=== PATIENT | female | born 1950 | race Caucasian/White ===

== ENCOUNTER 2023-05-23 13:31 | Outpatient (OUT) | payer MEDICARE, SELFPAY ==
--- NOTE | 2023-05-23 15:12 | P.CN_ITS ---
Consult Note: HPI Data of Consult Patient: new to practice Consult date: 05/23/23 Requesting Physician: Serge Rodriguez MD Primary Care Provider: Non-Staff Physician, Consult Narrative Reason for consult: Right hip pain Narrative: 72yof who presents for evaluation. Increasing low back, right hip pain. Needs a right hip replacement, but too osteoporotic at this time. Engaged in provider directed home exercises >6 weeks, with no benefit. Utilizes tylenol mostly, which helps mildly. Denies adverse side effects. cc:: CC: Serge Rodriguez MD Review of Systems ROS Status of ROS 10 or more systems reviewed and unremarkable except as noted in history and below Exam Constitutional Common normals: no apparent distress, oriented x3 and healthy appearing Respiratory Common normals: normal respiratory effort Effort & inspection: able to speak in complete sentences Back & Pelvis Other: Tenderness to palpation in right hip. Pain elicited with flexion, extension, external rotation of right hip. Facet loading maneuvers positive bilaterally. Pain with flexion, extension, lateral rotation of lumbar spine. Extremity Common normals: normal to inspection Neuro Common normals: oriented x3, CN's II-XII intact bilaterally and no focal motor deficits Psych Common normals: mental status grossly normal and cooperative Assessment and Plan Assessment and Plan (1) Lumbago: (2) Osteoarthritis of right hip: Plan 72yof who presents for evaluation. Failed conservative measures >6 weeks, as not ed. Given imaging and symptoms, prudent to attempt right hip injection. She is in agreement. Will have her undergo lumbar XR for evaluation. Medications reviewed. Will prescribe butrans path 5mcg/hr. She expressed understanding. Follow up after procedure.
== END 2023-05-23 13:32 ==
LOC: PM 13:31
PROVIDERS: Visit Provider Anesthesiology
DX: M54.50 Low back pain, unspecified (principal); M16.11 Unilateral primary osteoarthritis, right hip
CPT/HCPCS: G0463

== ENCOUNTER 2023-06-20 10:34 | Day surgery (SDC) | payer MEDICARE, SELFPAY ==
[2023-06-20 11:00] VITALS: BP 130/78; PULSE 83; RESP 14; TEMP 36.8; O2SAT 98
[2023-06-20] MEDS: LIDOCAINE HCL 2% PF 100 MG/5 ML VIAL INJ (11:57)
[2023-06-20] MEDS: TRIAMCINOLONE ACETONIDE 40 MG/ML VIAL IM (11:57)
[2023-06-20] MEDS: BUPIVACAINE HCL 0.25% PF 25 MG/10 ML VIAL 4 ML INJ (11:57)
[2023-06-20] MEDS: IOHEXOL 240 MG/ML - 10 ML VIAL INJ (11:57)
--- NOTE | 2023-06-20 11:57 | W.PM.PROCNOT ---
Date of procedure: 06/20/23 Pre-op diagnosis: Right hip osteoarthritis Post-op diagnosis: same as pre-op Procedure: Procedure: Right hip intraarticular injection Medications: Bupivacaine 0.25% 3cc, kenalog 40mg I explained the details of the procedure to the patient including the risks, benefits and alternatives. We had an informed discussion and the patient verbalized understanding and signed the consent form. All questions were answered appropriately.? A time out was performed.? After obtaining a comfortable supine position, the skin overlying the hip, subtrochanteric region, and joint space were prepped with alcohol. A sterile syringe containing the above medication was attached to a 25 guage, 3.5 inch spinal needle under strict aseptic technique. X ray was used to identify the joint space and the femoral neck on the right side.? The needle was than advanced through the subcutaneous tissue after local injection of 1% lidocaine.? The contents of the syringe were gently injected without any resistance into the joint space after contrast (isovue) outlined the appropriate area. The needle was removed and pressure was applied to the injection site to decrease the incidence of ecchymosis and hematoma formation.? A sterile bandage was applied. Post procedural instructions were given to the patient. Anesthesia: Local Surgeon: Serge Rodriguez Pathology: none sent Condition: stable Disposition: no change
[2023-06-20 12:00] VITALS: BP 153/77; BP 158/74; PULSE 100; PULSE 92; RESP 16; RESP 18; O2SAT 93; O2SAT 94
== END 2023-06-20 12:04 | disposition home or self-care (01) ==
PROVIDERS: Visit Provider Anesthesiology
DX: M16.11 Unilateral primary osteoarthritis, right hip (principal)
CPT/HCPCS: 20610; 77002; Q9966

== ENCOUNTER 2023-07-06 14:49 | Outpatient (OUT) | payer MEDICARE, SELFPAY ==
--- NOTE | 2023-07-06 15:21 | PM.CN ---
Consult Note: HPI Data of Consult Patient: new to practice Consult date: 05/23/23 Requesting Physician: Roxana Jj NP Primary Care Provider: Non-Staff Physician, MD Consult Narrative Reason for consult: Right hip pain Narrative: 72yof who presents for evaluation. Increasing low back, right hip pain. Needs a right hip replacement, but too osteoporotic at this time. Engaged in provider directed home exercises >6 weeks, with no benefit. Utilzes butrans 5mcg with moderate relief of pain and no side effects. Patient rating pain 5/10 today. Reporting 80% improvement as a result of right hip injection. cc:: CC: Roxana Jj NP Review of Systems ROS Status of ROS 10 or more systems reviewed and unremarkable except as noted in history and below Musculoskeletal Reports: joint pain PFSH PFSH Medical History Arthritis of right hip ?M16.11 - Unilateral primary osteoarthritis, right hip (ICD-10) Meds Home Medications and Allergies Home Medications Medication Instructions Recorded Confirmed Type acetaminophen 325 mg capsule 1,300 mg PO BID PRN pain 05/24/23 06/20/23 History (Tylenol) albuterol sulfate 90 mcg/actuation 1 inh inhalation Q6H 05/24/23 06/20/23 History aerosol inhaler alendronate 70 mg tablet 70 mg PO QWEEK 05/24/23 06/20/23 History atorvastatin 20 mg tablet 20 mg PO DAILY 05/24/23 06/20/23 History buprenorphine 5 mcg/hour weekly 1 patch transdermal Q7D 05/24/23 06/20/23 History transdermal patch (Butrans) buspirone 5 mg tablet 5 mg PO BID 05/24/23 06/20/23 History cholecalciferol (vitamin D3) 25 25 mcg PO DAILY 05/24/23 06/20/23 History mcg (1,000 unit) capsule furosemide 20 mg tablet 20 mg PO BID 05/24/23 06/20/23 History lisinopril 2.5 mg tablet 2.5 mg PO DAILY 05/24/23 06/20/23 History metoprolol tartrate 25 mg tablet 25 mg PO BID 05/24/23 06/20/23 History multivitamin 1 tab PO DAILY 05/24/23 06/20/23 History buprenorphine 5 mcg/hour weekly 1 patch transdermal Q7D #4 ea 06/22/23 Rx transdermal patch (Butrans) buprenorphine 5 mcg/hour weekly 1 patch transdermal Q7D #4 ea 06/23/23 Rx transdermal patch (Butrans) Allergies Allergy/AdvReac Type Severity Reaction Status Date / Time No Known Drug Allergies Allergy Verified 05/24/23 07:59 Exam Constitutional Common normals: no apparent distress, oriented x3 and healthy appearing Respiratory Common normals: normal respiratory effort Effort & inspection: able to speak in complete sentences Back & Pelvis Other: Tenderness to palpation in right hip. Pain elicited with flexion, extension, external rotation of right hip. Facet loading maneuvers positive bilaterally. Pain with flexion, extension, lateral rotation of lumbar spine. Extremity Common normals: normal to inspection Neuro Common normals: oriented x3, CN's II-XII intact bilaterally and no focal motor deficits Psych Common normals: mental status grossly normal and cooperative Assessment and Plan Assessment and Plan (1) Lumbago: (2) Osteoarthritis of right hip: Plan -continue current medications -f/u 10 weeks
== END 2023-07-06 14:50 | disposition home or self-care (01) ==
LOC: PM 14:49
PROVIDERS: Visit Provider Nurse Practitioner
DX: M54.50 Low back pain, unspecified (principal); M16.11 Unilateral primary osteoarthritis, right hip
CPT/HCPCS: G0463

== ENCOUNTER 2023-09-15 13:43 | Outpatient (OUT) | payer MEDICARE, SELFPAY ==
--- NOTE | 2023-09-15 14:36 | P.CN_ITS ---
Consult Note: HPI Data of Consult Patient: new to practice Consult date: 05/23/23 Requesting Physician: Roxana Jj NP Primary Care Provider: Non-Staff Physician, MD Consult Narrative Reason for consult: /fu Narrative: 72yof who presents for evaluation. Increasing low back, right hip pain and right knee pain. Needs a right hip replacement, but too osteoporotic at this time. Engaged in provider directed home exercises >6 weeks, with no benefit. Utilzes butrans 5mcg with moderate relief of pain and no side effects. Patient rating pain 8/10 today. cc:: CC: Roxana Jj NP Review of Systems ROS Status of ROS 10 or more systems reviewed and unremark able except as noted in history and below Musculoskeletal Reports: extremity pain and joint pain PFSH PFSH Medical History Arthritis of right hip ?M16.11 - Unilateral primary osteoarthritis, right hip (ICD-10) Meds Home Medications and Allergies Home Medications Medication Instructions Recorded Confirmed Type acetaminophen 325 mg capsule 1,300 mg PO BID PRN pain 05/24/23 06/20/23 History (Tylenol) albuterol sulfate 90 mcg/actuation 1 inh inhalation Q6H 05/24/23 06/20/23 History aerosol inhaler alendronate 70 mg tablet 70 mg PO QWEEK 05/24/23 06/20/23 History atorvastatin 20 mg tablet 20 mg PO DAILY 05/24/23 06/20/23 History buprenorphine 5 mcg/hour weekly 1 patch transdermal Q7D 05/24/23 06/20/23 History transdermal patch (Butrans) buspirone 5 mg tablet 5 mg PO BID 05/24/23 06/20/23 History cholecalciferol (vitamin D3) 25 25 mcg PO DAILY 05/24/23 06/20/23 History mcg (1,000 unit) capsule furosemide 20 mg tablet 20 mg PO BID 05/24/23 06/20/23 History lisinopril 2.5 mg tablet 2.5 mg PO DAILY 05/24/23 06/20/23 History metoprolol tartrate 25 mg tablet 25 mg PO BID 05/24/23 06/20/23 History multivitamin 1 tab PO DAILY 05/24/23 06/20/23 History buprenorphine 5 mcg/hour weekly 1 patch transdermal Q7D #4 ea 06/22/23 Rx transdermal patch (Butrans) buprenorphine 5 mcg/hour weekly 1 patch transdermal Q7D #4 ea 06/23/23 Rx transdermal patch (Butrans) buprenorphine 5 mcg/hour weekly 1 patch transdermal Q7D #4 ea 08/23/23 Rx transdermal patch (Butrans) Allergies Allergy/AdvReac Type Severity Reaction Status Date / Time No Known Drug Allergies Allergy Verified 05/24/23 07:59 Exam Constitutional Common normals: no apparent distress, oriented x3 and healthy appearing Respiratory Common normals: normal respiratory effort Effort & inspection: able to speak in complete sentences Back & Pelvis Other: Tenderness to palpation in right hip. Pain elicited with flexion, extension, external rotation of right hip. Facet loading maneuvers positive bilaterally. Pain with flexion, extension, lateral rotation of lumbar spine. Extremity Right lower extremity: hip joint and knee joint Other: enlarged diameter of right knee, pain with weight bearing and flexion and extension no warmth redness or swelling Neuro Common normals: oriented x3, CN's II-XII intact bilaterally and no focal motor deficits Psych Common normals: mental status grossly normal and cooperative Assessment and Plan Assessment and Plan (1) Osteoarthritis of right hip: (2) Lumbago: (3) Osteoarthritis of right knee: (4) Osteoporosis: (5) Chronic prescription opiate use: Plan right hip injection under fluoroscopy with Dr Rodriguez right knee durolane injection with Dr Rodriguez for chronic right knee pain and OA unresponsive to corticosteroid injections continue butrans 5mcg/hr patch weekly continue HEP as tolerated continue prolia and f/u with orthopedics
== END 2023-09-15 13:44 | disposition home or self-care (01) ==
LOC: PM 13:44
PROVIDERS: Visit Provider Nurse Practitioner
DX: M16.11 Unilateral primary osteoarthritis, right hip (principal); M54.50 Low back pain, unspecified; M17.11 Unilateral primary osteoarthritis, right knee; M81.0 Age-related osteoporosis without current pathological fracture; Z79.891 Long term (current) use of opiate analgesic
CPT/HCPCS: G0463

== ENCOUNTER 2023-10-17 09:26 | Day surgery (SDC) | payer MEDICARE, SELFPAY ==
--- OUTSIDE RECORDS SUMMARY | 2023-10-17 09:30 | XMS_ITS | CCD ---
Author Name Unknown Address [address] [place] [address] Organization [facility] Care Team Providers Care Associate Theatre Professor Name Role Phone MISC, DOCTOR Primary Care Unavailable GUME RODRIGUEZ Admitting GUME Padron Attending UnavailROGERS Cao Consulting Unavailable GUME RODRIGUEZ Consulting UnavailEstelita Breen Unavailable IFTIKHAR Trevino Primary Care Provide r DO Wilman Ramirez Emergency Provider DO Josué Alvarez Admit Provider RONEY Ding Other Provider Unavailable DO Jerica Carrasco Other Provider [phone] MD Wilbert East Other Provider MD Willie Milner Other Provider MD Jaquelin Connell Other Provider MD Zia Lloyd Other Provider IFTIKHAR Forrester Other Provider MD aPulina Garsia Other Provider MD Payal Horta Other Provider MD Kale Robles Other Provider MD Parvin Batres Attending Provider [phone] MD Mark Avila Attending Provider Linda Fontanez Unavailable IFTIKHAR Trevino Primary Care Provide r IFTIKHAR Sheridan Emergency Provider IFTIKHAR Trevino Attending Provider DO Jerica Carrasco Referring Provider Delfina Trevino Unavailable Unavailable Unavailable Delfina Trevino Primary Care Unavailab Layo Madrigal Admitting Unavailable Layo Sheridan Attending Unavailable Delfina Trevino Primary Care Unavailab Josué Wasserman Admitting Unavailable Jennifer Ding Consulting Unavailable Parvin Batres Attending Unavailable Jerica Carrasco Consulting Unavailable Wilbert East Consulting Unavailable Willie Milner Consulting Unavail able Jaquelin Connell Consulting Unavailable Zia Lloyd Consulting Unavailab Iwona Wayne Consulting Unavailable Paulina Garsia Consulting Unavailable Payal Horta Consulting Unavailab Kale Ramos Consulting Unavailable Delfina Trevino Admitting Unavailab le Delfina Trevino Attending Unavailab le Delfina Trevino Primary Care Unavailab Mark [place] Admitting Unavailable Mark Avila Attending Unavailable Delfina Trevino Primary Care Unavailab Mark [place] Admitting Unavailable Mark Avila Attending Unavailable Delfina Trevino Primary Care Unavailab le Delfina Trevino Admitting Unavailab le Delfina Trevino Attending Unavailab Jerica Frank Referring Unavailable Delfina Trevino Primary Care Unavailab le Delfina Trevino Admitting Unavailab le Delfina Trevino Attending Unavailab le Delfina Trevino Primary Care Unavailab eldon Kaiser, Joy Unavailable Jennifer PATEL, Serge Duran Attending Unavailable Jennifer PATEL, Serge Duran Attending Unavailable Ms. Delfina Trevino Primary Care Dr. Willie Story Attending Leyda Trevino, Dominique Delfina Maliky Primary Care Milly Connell, Dr. Hammer Referring [facility] genaro Connell, Dr. Hammer Attending [facility] ble Allergies Allergy Classification Reported Allergen(s) Allergy Type Date of Onset Reaction(s) Facility (2 sources) Acetaminophen / oxyCODONE Drug Allergy Unknown [place] Other (2 sources) Clindamycin Drug Allergy Unknown [place] Other (2 sources) PARoxetine Drug Allergy Unknown [place] Other (2 sources) Pseudoephedrine Drug Allergy Unknown [place] Other (2 sources) Sertraline Drug Allergy Unknown [place] Other Medications Current Medications Medication Drug Class(es) Dates Sig (Normalized) Sig (Original) acetaminophen 325 mg oral tablet (1 source) take 1 tablet by mouth every four hours albuterol 0.83 mg/ml inhalation solution (15 sources) beta2-Adrenergic Agonist Start: 01-14-2020 Albuterol Sulfate Active 1 AMPUL INHALATION Q4H January 14, 2020 12:00am Start: 01-14-2020 take 1 puff(s) by in halation every four hours Albuterol Sulfate Active 2 PUFF INHALATION Q4H January 14, 2020 12:00am take 1 puff(s) by in halation every four hours as needed Albuterol Sulfate HFA 108 MCG/ACT AERS INHALE 1 PUFF EVERY 4 HOURS NEEDED. Quantity: 0 Refills: 0 Ordered: 04-Mar-2023 DO Active amoxicillin 875 mg / clavulanate 125 mg oral tablet (6 sources) Penicillin-class Antibacterial Start: 04-18-2022 take 1 tablet by mouth twice daily Amoxicillin-Pot Clavulanate Active 1 TAB PO Twice daily 06 16April 18, 2022 12:00am Start: 04-18-2022 take 1 tablet by mariano th twice daily Amoxicillin-Pot Clavulanate Active 1 TAB PO Twice daily 06 16April 18, 2022 12:00am aspirin 81 mg delayed release oral tablet (7 sources) Platelet Aggregation Inhibitor, Nonsteroidal Anti-inflammatory Drug Start: 06-28-2020 take 81 mg by mouth once daily Aspirin Active 81 MG PO Daily June 28, 2020 12:00am Baby Aspirin Act amberly atorvastatin 20 mg oral tablet (10 sources) HMG-CoA Reductase Inhibitor Start: 06-27-2020 take 20 mg by mouth once daily Atorvastatin Active 20 MG PO Daily June 27, 2020 12:00am take 1 tablet by mouth every twe nty-four hours Atorvastatin Afshin cium Active cholecalciferol 0.025 mg oral tablet (6 sources) Vitamin D Start: 04-16-2022 take 1 tablet by mouth once daily Cholecalciferol (Vitamin D3) (Vitamin D3) 25 mcg (1,000 unit) tablet Active 25 MCG PO Daily April 16, 2022 12:00am furosemide 40 mg oral tablet (9 sources) Loop Diuretic Start: 04-18-2022 take 20 mg by mouth once daily Furosemide Active 20 MG PO Daily at 0800 April 18, 2022 12:00am Start: 04-18-2022 take 20 mg by mouth once daily Furosemide Active 20 MG PO Daily at 0800 April 18, 2022 12:00am take 1 tablet by mariano th every twenty-four hours Fhgduwyb-Azfzg-Zoz 2-C-D3-Jane (Djdsrpff-Xmxzzo-Zzg With Vit D) 750-30-1,000-1 vt-bo-owdh-mg Tablet (6 sources) Start: 04-16-2022 take 1 tablet by mouth once daily Jvonisyp-Ptfef-Wvd 2-C-D3-Jane (Hpezvxry-Vbikns-Mye With Vit D) 750-30-1,000-1 zl-sa-roac-mg Tablet Active 1 TAB PO Daily April 16, 2022 12:00am Glucosamine (1 source) Glucosamine Acti ve ibuprofen 200 mg oral tablet (6 sources) Nonsteroidal Anti-inflammator y Drug Start: 04-16-2022 take 800 mg by mouth twice daily Ibuprofen Active 800 MG PO Twice daily April 16, 2022 12:00am lisinopril 2.5 mg oral tablet (16 sources) Angiotensin Converting Enzyme Inhibitor Start: 04-18-2022 take 2.5 mg by mouth once daily Lisinopril Active 2.5 MG PO Daily April 18, 2022 12:00am Start: 04-18-2022 take 2.5 mg by mouth once amy y Lisinopril Active 2.5 MG PO Daily 30 April 18, 2022 12:00am Start: 06-19-2019 End: 04-18-2022 take 10 mg by mouth once daily Lisinopril Discontinued 10 MG PO Daily June 19, 2019 12:00am April 18, 2022 9:47am take 1 tablet by mariano every twenty-four hours Lisinopril Activ e methylPREDNISolone 4 mg oral tablet (1 source) Corticosteroid Start: 01-29-2022 Medrol 4 MG as directed Orally as directed for 6 days January, Active metoprolol tartrate 25 mg oral tablet (9 sources) beta-Adrenergic Herber Start: 04-18-2022 take 25 mg by mouth twice daily Metoprolol Tartrate Active 25 MG PO Twice daily 60 April 18, 2022 12:00am Start: 04-18-2022 take 25 mg by mouth twice amy y Metoprolol Tartrate Active 25 MG PO Twice daily 60 April 18, 2022 12:00am take 1 tablet by mariano once daily Metoprolol Succinate ER 25 MG Oral Tablet Extended Release 24 Hour TAKE 1 TABLET BY MOUTH EVERY DAY Quantity: 90 Refills: 3 Ordered: 04-Mar-2023 DO Active take 1 capsule by mo [facility] once daily Metoprolol Succinate 25 MG 1 capsule Orally Once a day Active 60 actuat olodaterol 0.0025 mg/actuat / tiotropium 0.0025 mg/actuat inhalation spray (1 source) Anticholinergic, beta2-Adrenergic Agonist Start: 03-22-2023 predniSONE 20 mg oral tablet (15 sources) Start: 12-16-2022 take 40 mg by mouth once daily at mealtime Prednisone Active 40 MG PO Daily December 16, 2022 12:00am administer with food or milk Start: 01-14-2020 End: 07-21-2020 take 40 mg by mouth once daily Prednisone Discontinued 40 MG PO Daily 02 12June 28, 2020 12:00am July 21, 2020 12:34pm traMADol hydrochloride 50 mg oral tablet (3 sources) Opioid Agonist Start: 12-16-2022 take 50 mg by mouth every eight hours Tramadol Active 50 MG PO Q8H 10 3 Dalia 6th, 2023 12:00am 24 hr venlafaxine 75 mg extended release oral capsule (19 sources) Serotonin and Norepinephrine Reuptake Inhibitor Start: 04-17-2022 take 75 mg by mouth once daily Venlafaxine Active 75 MG PO Daily April 17, 2022 12:00am Start: 04-16-2022 End: 04-17-2022 take 1 tablet by mouth once daily Venlafaxine (Effexor) 75 mg Tablet Discontinued 75 MG PO Daily April 16, 2022 12:00am April 17, 2022 9:09am Start: 06-19-2019 End: 01-14-2020 take 150 mg by mouth once daily Venlafaxine Discontinu ed 150 MG PO Daily June 19, 2019 12:00am January 14, 2020 7:56pm Effexor Active Vitamin D (1 source) Vitamin D Active Completed/Discontinued Medications Medication Drug Class(es) Dates Sig (Normalized) Sig (Original) acetaminophen 325 mg / HYDROcodone bitartrate 5 mg oral tablet (6 sources) Opioid Agonist Start: 07-21-2020 End: 10-09-2020 take 1 tablet by mouth every six hours Hydrocodone-Acetam inophen (Arvin) 5-325 mg tablet Discontinued 1 TAB PO Q6H 10 2 July 21, 2020 October 09, 2020 8:45pm azithromycin 250 mg oral tablet (6 sources) Macrolide Antimicrobial Start: 06-28-2020 End: 07-21-2020 take 500 mg by mouth once daily Azithromycin Discontinued 500 MG PO Daily 8 June 28, 2020 12:00am July 21, 2020 12:34pm diclofenac sodium 75 mg delayed release oral tablet (14 sources) Nonsteroidal Anti-inflammatory Drug Start: 04-16-2022 End: 04-16-2022 take 75 mg by mouth once daily Diclofenac Sodium Discontinued 75 MG PO Daily April 16, 2022 12:00am April 16, 2022 10:46pm Start: 06-19-2019 End: 01-14-2020 take 75 mg by mouth once daily Diclofenac Sodium Disco ntinued 75 MG PO Daily June 19, 2019 12:00am January 14, 2020 7:56pm doxycycline hyclate 100 mg oral tablet (6 sources) Tetracycline-class Drug Start: 01-14-2020 End: 06-27-2020 take 100 mg by mouth twice daily Doxycycline Hyclate Discontinued 100 MG PO Twice daily 14 January 14, 2020 12:00am June 27, 2020 12:29pm famotidine 20 mg oral tablet (1 source) Histamine-2 Receptor Antagonist take 1 tablet by mouth at bedtime Famotidine 20 MG Oral Tablet TAKE 1 TABLET AT BEDTIME. Quantity: 0 Refills: 0 Ordered: 04-Mar-2023 DO Active hydrocortisone 25 mg/ml topical cream (6 sources) Corticosteroid Start: 06-19-2019 End: 01-14-2020 Hydrocortisone Discontinued 1 APPLIC TOPICAL 2-3 TIMES PER DAY June 19, 2019 12:00am January 14, 2020 7:55pm Problems Active Problems Problem Classification Problem Date Documented Date Episodic/Chronic Acute cerebrovascular disease (6 sources) Cerebrovascular accident; Translations: [Cerebral infarction, unspecified] 06-27-2020 Chronic Acute myocardial infarction (10 sources) Myocardial infarction; Translations: [Myocardial infarction type 2] Onset: 04-16-2022 04-17-2022 Chronic Allergic reactions (6 sources) Inflammatory dermatosis; Translations: [Dermatitis, unspecified] 06-19-2019 Episodic Chronic kidney disease (3 sources) Chronic kidney disease stage 4; Translations: [Chronic kidney disease, stage 4 (severe)] Chronic Chronic obstructive pulmonary disease and bronchiectasis (20 sources) Chronic obstructive lung disease; Translations: [Chronic obstructive pulmonary disease, unspecified] Onset: 04-16-2022 04-17-2022 Chronic Congestive heart failure; nonhypertensive (16 sources) Diastolic heart failure; Translations: [Diastolic heart failure, unspecified] Onset: 04-16-2022 04-17-2022 Chronic Disorders of lipid metabolism (12 sources) Hyperlipidemia; Translations: [Hyperlipidemia, unspecified] Onset: 04-16-2022 04-17-2022 Chronic Essential hypertension (17 sources) Hypertensive disorder; Translations: [Unspecified essential hypertension] Onset: 04-16-2022 04-17-2022 Chronic Fracture of lower limb (6 sources) Fracture of foot ; Translations: [Unspecified fracture of unspecified foot, initial encounter for closed fracture] 07-21-2020 Episodic Gout and other crystal arthropathies (3 sources) 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; Translations: [Other secondary chronic gout, unspecified site, without tophus (tophi)] Chronic Malaise and fatigue (6 sources) Right hemiparesis; Translations: [Weakness] 06-27-2020 Episodic Osteoporosis (1 source) Age-related osteoporosis without current pathological fracture; Translations: [Age-related osteoporosis without current pathological fracture] Onset: 03-07-2023 Chronic Other and unspecified benign neoplasm (6 sources) Neoplasm of meninges; Translations: [Benign neoplasm of meninges, unspecified] 06-27-2020 Chronic Other bone disease and musculoskeletal deformities (1 source) Other specified disorders of bone, unspecified site; Translations: [Other specified disorders of bone, unspecified site] Onset: 02-28-2023 Episodic Other circulatory disease (6 sources) Elevated blood pressure; Translations: [Elevated blood-pressure reading, without diagnosis of hypertension] 06-19-2019 Episodic Other circulatory disease (6 sources) History of cerebrovascular accident; Translations: [Personal history of transient ischemic attack (TIA), and cerebral infarction without residual deficits] 04-17-2022 Episodic Other connective tissue disease (6 sources) Swelling of lower limb; Translations: [Other specified soft tissue disorders] 04-16-2022 Episodic Other hematologic conditions (6 sources) Raised cardiac enzyme or marker; Translations: [Other specified abnormalities of plasma proteins] 04-16-2022 Episodic Other lower respiratory disease (1 source) Dyspnea; Translations: [Other respiratory abnormalities] Episodic Other nervous system disorders (1 source) Other chronic pain Onset: 01-29-2022 Resolved: 01-29-2022 Chronic Other nervous system disorders (6 sources) Slurred speech; Translations: [Slurred speech] 10-09-2020 Episodic Other nervous system disorders (6 sources) Ataxia; Translations: [Ataxia, unspecified] 06-27-2020 Episodic Other non-traumatic joint disorders (3 sources) Hip pain; Translations: [Pain in right hip] 12-16-2022 Episodic Other nutritional; endocrine; and metabolic disorders (1 source) Body mass index less than 20; Translations: [Body Mass Index less than 19, adult] Episodic Pneumonia (except that caused by tuberculosis or sexually transmitted disease) (6 sources) Pneumonia; Translations: [Pneumonia, unspecified organism] 06-27-2020 Episodic Residual codes; unclassified (6 sources) Tobacco user; Translations: [Tobacco use] 04-17-2022 Episodic Residual codes; unclassified (6 sources) Peripheral edema; Translations: [Edema, unspecified] 04-16-2022 Episodic Residual codes; unclassified (3 sources) Edema, unspecified; Translations: [Edema] 04-18-2022 Episodic Residual codes; unclassified (5 sources) Tobacco use; Translations: [Tobacco use disorder] Onset: 04-16-2022 04-18-2022 Episodic Residual codes; unclassified (1 source) Tobacco dependence syndrome; Translations: [Tobacco use] Episodic Rheumatoid arthritis and related disease (3 sources) Seropositive rheumatoid arthritis; Translations: [Rheumatoid arthritis with rheumatoid factor, unspecified] Chronic Substance-related disorders (2 sources) Nicotine dependence, cigarettes, uncomplicated; Translations: [Smoker] Onset: 01-17-2019 Chronic Comment on above: 1 PPD; Unclassified (1 source) Pain in right hip; Translations: [Pain in right hip] Onset: 12-16-2022 Unclassified (1 source) Pain in right ankle and joints of right foot; Translations: [Pain in right ankle and joints of right foot] Onset: 05-12-2022 Urinary tract infections (6 sources) Urinary tract infectious disease; Translations: [Urinary tract infection, site not specified] 01-14-2020 Episodic Past or Other Problems Problem Classification Problem Date Documented Date Episodic/Chronic Deficiency and other anemia (1 source) Anemia, unspecified; Translations: [Anemia, unspecified] Onset: 06-16-2022 Episodic Fluid and electrolyte disorders (8 sources) Hyponatremia; Translations: [Hypo-osmolality and hyponatremia] Onset: 04-16-2022 04-18-2022 Episodic Other circulatory disease (4 sources) Elevated blood-pressure reading, without diagnosis of hypertension; Translations: [Elevated blood pressure reading without diagnosis of hypertension] Onset: 04-16-2022 04-18-2022 Episodic Other circulatory disease (4 sources) Personal history of transient ischemic attack (TIA), and cerebral infarction without residual deficits; Translations: [Personal history of transient ischemic attack (TIA), and cerebral infarction without residual deficits] Onset: 04-16-2022 04-18-2022 Episodic Other connective tissue disease (1 source) Synovial cyst of popliteal space [Ness], left knee Onset: 01-29-2022 Resolved: 01-29-2022 Episodic Other connective tissue disease (4 sources) Other specified soft tissue disorders; Translations: [Swelling of limb] Onset: 04-16-2022 04-18-2022 Episodic Other hematologic conditions (4 sources) Other specified abnormalities of plasma proteins; Translations: [Other abnormal blood chemistry] Onset: 04-16-2022 04-18-2022 Episodic Other non-traumatic joint disorders (3 sources) Pain in left wrist; Translations: [PAIN IN LEFT WRIST] Onset: 01-15-2019 Episodic Other non-traumatic joint disorders (1 source) Effusion, left knee Onset: 01-29-2022 Resolved: 01-29-2022 Episodic Other non-traumatic joint disorders (1 source) Pain in left knee Onset: 01-29-2022 Resolved: 01-29-2022 Episodic Sprains and strains (1 source) Strain of unspecified muscle, fascia and tendon at wrist and hand level, left hand, initial encounter; Translations: [STRAIN UNS DISTANCE EDUCATION DIRECTOR WRST HND LT HND INIT] Onset: 01-17-2019 Episodic Results Test Name Value Interpretation Reference Range Facility Office Visit (Cardiology)on 03-04-2023 Follow-up visit Diagnoses/Problems Assessed Dyspnea (786.09) (R06.00) Chronic diastolic heart failure, NYHA class 2 (428.32) (I50.32) Pre-operative cardiovascular examination (V72.81) (Z01.810) Current smoker (305.1) (F17.200) 1 PPD Diastolic heart failure (428.30) (I50.30) Hyperlipidemia (272.4) (E78.5) Hypertension (401.9) (I10) Preop cardiovascular exam (V72.81) (Z01.810) BMI less than 19,adult (V85.0) (Z68.1) Orders BMI less than 19,adult Healthy Weight Tips; Status:Complete - Retrospective Authorization; Done: 04Mar2023 Chronic diastolic heart failure, NYHA class 2, Diastolic heart failure IO EKG Electrocardiogram- 12 Lead; Status:Complete; Done: 04Mar2023 SocHx: Current smoker You need to stop smoking. Though it is not easy, more than half of all adult smokers have quit. We encourage you to write down all the reasons you should quit smoking and set a quit date for yourself. Ask us how we can help. You may also call 0-820-MPLONOW for free resources and assistance.; Status:Complete - Retrospective Authorization; Done: 04Mar2023 Tobacco Use Screening; Status:Complete; Done: [id number] Patient Instructions Please bring all medicines, vitamins, and herbal supplements with you when you come to the office. Prescriptions will not be filled unless you are compliant with your follow up appointments or have a follow up appointment scheduled as per instruction of your physician. Refills should be requested at the time of your visit. Note to Dr. Llamas's- can proceed with surgery from a cardiac standpoint Follow-up as needed only The provider reviewed the following test(s) and result(s) with the patient: ECG and pharmacologic stress test Chief Complaint CORIE COURTNEY is being seen for a consultation for POC. History of Present Illness The patient is here for cardiovascular evaluation for preoperative risk assessment. She is a 72-year-old whom I seen last year for evaluation for what appeared to be diastolic heart failure. Her medication was adjusted. She was advised to have a stress test but never showed up for that or follow-up. She was recently seen by orthopedic surgery because of hip pain and she is scheduled to undergo hip surgery. She was scheduled by her family physician for a stress test which turned to be negative. Her previous echocardiogram showed hyperdynamic LV systolic function with minimal intracavitary obstruction. The patient admits to very limited exercise tolerance due to hip pain. She does report some mild shortness of breath due to her tobacco use. Assessment 1. Dyspnea appears to be multifactorial related to chronic obstructive lung disease, tobacco use and component of diastolic heart failure 2. Chronic diastolic heart failure with previously documented hyperdynamic LV systolic function markedly improved with the adjustment of medication and uptitrating beta-herber. The patient is compensated now 3. Hypertension controlled 4. Hyperlipidemia atorvastatin 5. Tobacco use and COPD 7. Preoperative risk assessment for hip surgery based on recent testing including negative stress test and normal LV systolic function I believe her operative risk is acceptable cardiac esparza and she can proceed with surgery. Operative risk cardiac-esparza reviewed with patient and her son they both understood and agreed Plan 1. As indicated above based on ACC/AHA guidelines and based on recent diagnostic testing the patient operative risk is acceptable and she can proceed with her surgery 2. Operative risk reviewed with patient and her son they both understood and agreed 3. The patient was advised not to smoke 4. Patient will follow-up on as-needed basis on her request Active Problems Problems Chronic diastolic heart failure, NYHA class 2 (428.32) (I50.32) Current smoker (305.1) (F17.200) 1 PPD Diastolic heart failure (428.30) (I50.30) Hyperlipidemia (272.4) (E78.5) Hypertension (401.9) (I10) Surgical History Problems History of section History of Excision of basal cell carcinoma History of Foot surgery History of Tonsillectomy History of Wrist surgery Current Meds Medication NameInstruction Albuterol Sulfate HFA 108 MCG/ACT AERSINHALE 1 PUFF EVERY 4 HOURS NEEDED. Atorvastatin Calcium 40 MG Oral TabletTAKE 1 TABLET AT BEDTIME. Diclofenac Sodium 75 MG Oral Tablet Delayed ReleaseTAKE 1 TABLET Every twelve hours as needed Famotidine 20 MG Oral TabletTAKE 1 TABLET AT BEDTIME. Furosemide 40 MG Oral TabletTAKE 1 TABLET DAILY. Lisinopril 2.5 MG Oral TabletTAKE 1 TABLET DAILY. Metoprolol Succinate ER 25 MG Oral Tablet Extended Release 24 HourTAKE 1 TABLET BY MOUTH EVERY DAY Updated medication list with hospital paperwork Allergies Medication No Known Drug Allergies Recorded By: Arpita Russo; 03/04/2023 8:12:14 AM Family History Mother FH: CABG (coronary artery bypass surgery) (V17.3) (Z82.49) Social History Problems Caffeine use (V49.89) (Z78.9) 1 Pot of coffee (more content not included)... Normal [employer] Tobacco Screening.on 023 Adult depression screening assessment No [facility] [place] [facility] DO Work Phone: Fall risk assessment a) No falls within the last year [facility] [place] [facility] DO Work Phone: Tobacco use status HS a) Yes [facility] [place] 250 DO Work Phone: Tobacco Screening. Yes [facility] [place] 250 DO Work Phone: Alanine aminotransferase [En zymatic activity/volume] in Serum or PlasmaOrdered By: Delfina Trevino on 02-28-2023 ALT [Catalytic activity/Vol] 12 U/L 7-[address] [facility] Albumin [Mass/volume] in Ser um or Plasma by Bromocresol green (BCG) dye binding methoOrdered By: Delfina Trevino on 02-28-2023 Albumin BCG dye [Mass/Vol] 4.2 g/dL 3.5-5.[address] [facility] Alkaline phosphatase [Enzyma tic activity/volume] in Serum or PlasmaOrdered By: Delfina Trevino on 02-28-2023 ALP [Catalytic activity/Vol] 142 U/L 34-[address] [facility] Aspartate aminotransferase [ Enzymatic activity/volume] in Serum or PlasmaOrdered By: Delfina Trevino on 02-28-2023 AST [Catalytic activity/Vol] 15 U/L 13-[address] [facility] Basophils Auto (Bld) [#/Vol] Ordered By: Delfina Trevino on 02-28-2023 Basophils (Bld) [#/Vol] 0.1 10*3/uL 0.0-0.[address] [facility] Basophils/100 WBC Auto (Bld) Ordered By: Delfina Trevino on 02-28-2023 Basophils/100 WBC (Bld) 0.9 % . [facility] Bilirubin.total [Mass/volume ] in Serum or PlasmaOrdered By: Delfina Trevino on 02-28-2023 Bilirubin [Mass/Vol] 0.4 mg/dL 0.3-1.0 [facility] Calcium [Mass/volume] in Ser um or PlasmaOrdered By: Delfina Trevino on 02-28-2023 Calcium [Mass/Vol] 10.5 mg/dL 8.6-10.3 [facility] Carbon dioxide, total [Moles /volume] in Serum or PlasmaOrdered By: Delfina Trevino on 02-28-2023 CO2 [Moles/Vol] 23.8 mmol/L 21.0-31.0 [facility] Chloride [Moles/volume] in S stefan or PlasmaOrdered By: Delfina Trevino on 02-28-2023 Chloride [Moles/Vol] 98 mmol/L 98-107 [facility] Complete Blood Count Auto Di ffon 02-28-2023 Basophils (Bld) [#/Vol] 0.1 10*3/uL Normal 0.0-0.[address] [facility] Comment on above: Order Comment: Reaso n for Exam Chronic diastolic congestive heart failure Result Comment: PERF ORMED BY: [place] [address] PATHOLOGIST ACCOUNTING RECONCILIATION CLERK JOSEY BOUCHER M.D. Performed By: #### H APT, CRP, B12, LUIS ALFREDO, FE and TIBC, CREAT, ADDONUAPLUS, LDH #### [address] #### ANCA PROF #### [facility] , Basophils/100 WBC (Bld) 0.9 % Normal . [facility] Comment on above: Order Comment: Reaso n for Exam Chronic diastolic congestive heart failure Performed By: #### H APT, CRP, B12, LUIS ALFREDO, FE and TIBC, CREAT, ADDONUAPLUS, LDH #### [address] #### ANCA PROF #### [facility] , Eosinophils (Bld) [#/Vol] 0.6 10*3/uL High 0.0-0.[address] [facility] Comment on above: Order Comment: Reaso n for Exam Chronic diastolic congestive heart failure Performed By: #### H APT, CRP, B12, LUIS ALFREDO, FE and TIBC, CREAT, ADDONUAPLUS, LDH #### [address] #### ANCA PROF #### [facility] , Eosinophils/100 WBC (Bld) 5.5 % Normal . [facility] Comment on above: Order Comment: Reaso n for Exam Chronic diastolic congestive heart failure Performed By: #### H APT, CRP, B12, LUIS ALFREDO, FE and TIBC, CREAT, ADDONUAPLUS, LDH #### [facility] [address] [place] [address] [place] #### ANCA PROF #### [facility] , Erythrocyte distribution width (RBC) [Ratio] 18.1 % High 11.9-15.[address] [facility] Comment on above: Order Comment: Reaso n for Exam Chronic diastolic congestive heart failure Performed By: #### H APT, CRP, B12, LUIS ALFREDO, FE and TIBC, CREAT, ADDONUAPLUS, LDH #### [address] #### ANCA PROF #### [facility] , Hematocrit (Bld) [Volume fraction] 33.6 % Low 34.0-46.[address] [facility] Comment on above: Order Comment: Reaso n for Exam Chronic diastolic congestive heart failure Performed By: #### H APT, CRP, B12, LUIS ALFREDO, FE and TIBC, CREAT, ADDONUAPLUS, LDH #### [address] #### ANCA PROF #### [facility] , Hemoglobin (Bld) [Mass/Vol] 11.4 g/dL Low 11.8-15.[address] [facility] Comment on above: Order Comment: Reaso n for Exam Chronic diastolic congestive heart failure Performed By: #### H APT, CRP, B12, LUIS ALFREDO, FE and TIBC, CREAT, ADDONUAPLUS, LDH #### [address] #### ANCA PROF #### [facility] , Lymphocytes (Bld) [#/Vol] 2.2 10*3/uL Normal 1.00-4.[address] [facility] Comment on above: Order Comment: Reaso n for Exam Chronic diastolic congestive heart failure Performed By: #### H APT, CRP, B12, LUIS ALFREDO, FE and TIBC, CREAT, ADDONUAPLUS, LDH #### [place] [address] [place] #### ANCA PROF #### [facility] , Lymphocytes/100 WBC (Bld) 21.4 % Normal . [facility] Comment on above: Order Comment: Reaso n for Exam Chronic diastolic congestive heart failure Performed By: #### H APT, CRP, B12, LUIS ALFREDO, FE and TIBC, CREAT, ADDONUAPLUS, LDH #### [address] #### ANCA PROF #### [facility] , MCH (RBC) [Entitic mass] 28.4 pg Normal 24.7-34.[address] [facility] Comment on above: Order Comment: Reaso n for Exam Chronic diastolic congestive heart failure Performed By: #### H APT, CRP, B12, LUIS ALFREDO, FE and TIBC, CREAT, ADDONUAPLUS, LDH #### [facility] [address] [place] [address] #### ANCA PROF #### [facility] , MCV (RBC) [Entitic vol] 83.5 fL Normal 80-100 [facility] Comment on above: Order Comment: Reaso n for Exam Chronic diastolic congestive heart failure Performed By: #### H APT, CRP, B12, LUIS ALFREDO, FE and TIBC, CREAT, ADDONUAPLUS, LDH #### [address] #### ANCA PROF #### [facility] , Mean Corpuscular HGB Conc 34.1 g/dL Normal 32.0-35.[address] [facility] Comment on above: Order Comment: Reaso n for Exam Chronic diastolic congestive heart failure Performed By: #### H APT, CRP, B12, LUIS ALFREDO, FE and TIBC, CREAT, ADDONUAPLUS, LDH #### [facility] [address] [place] [address] [place] #### ANCA PROF #### [facility] , Monocytes (Bld) [#/Vol] 0.7 10*3/uL Normal 0.0-0.[address] [facility] Comment on above: Order Comment: Reaso n for Exam Chronic diastolic congestive heart failure Performed By: #### H APT, CRP, B12, LUIS ALFREDO, FE and TIBC, CREAT, ADDONUAPLUS, LDH #### [place] [address] [place] #### ANCA PROF #### [facility] , Monocytes/100 WBC (Bld) 6.8 % Normal . [facility] Comment on above: Order Comment: Reaso n for Exam Chronic diastolic congestive heart failure Performed By: #### H APT, CRP, B12, LUIS ALFREDO, FE and TIBC, CREAT, ADDONUAPLUS, LDH #### [facility] [address] [place] [address] [place] #### ANCA PROF #### [facility] , Neutrophils (Bld) [#/Vol] 6.9 10*3/uL Normal 1.8-7.[address] [facility] Comment on above: Order Comment: Reaso n for Exam Chronic diastolic congestive heart failure Performed By: #### H APT, CRP, B12, LUIS ALFREDO, FE and TIBC, CREAT, ADDONUAPLUS, LDH #### [facility] [address] [place] [address] #### ANCA PROF #### [facility] , Neutrophils/100 WBC (Bld) 65.4 % Normal . [facility] Comment on above: Order Comment: Reaso n for Exam Chronic diastolic congestive heart failure Performed By: #### H APT, CRP, B12, LUIS ALFREDO, FE and TIBC, CREAT, ADDONUAPLUS, LDH #### [facility] [address] [place] [address] [place] #### ANCA PROF #### [facility] , NRBC% 0.1 /100{WBC} Normal 0-0.[address] [facility] Comment on above: Order Comment: Reaso n for Exam Chronic diastolic congestive heart failure Performed By: #### H APT, CRP, B12, LUIS ALFREDO, FE and TIBC, CREAT, ADDONUAPLUS, LDH #### [facility] [address] [place] [address] [place] #### ANCA PROF #### [facility] , Platelet mean volume (Bld) [Entitic vol] 7.0 fL Normal 6.3-10.[address] [facility] Comment on above: Order Comment: Reaso n for Exam Chronic diastolic congestive heart failure Performed By: #### H APT, CRP, B12, LUIS ALFREDO, FE and TIBC, CREAT, ADDONUAPLUS, LDH #### [facility] [address] [place] [address] [place] #### ANCA PROF #### [facility] , Platelets (Bld) [#/Vol] 536 10*3/uL High 150-[address] [facility] Comment on above: Order Comment: Reaso n for Exam Chronic diastolic congestive heart failure Performed By: #### H APT, CRP, B12, LUIS ALFREDO, FE and TIBC, CREAT, ADDONUAPLUS, LDH #### [facility] [address] #### ANCA PROF #### [facility] , RBC (Bld) [#/Vol] 4.02 10*6/uL Normal 3.60-5.00 [facility] Comment on above: Order Comment: Reaso n for Exam Chronic diastolic congestive heart failure Performed By: #### H APT, CRP, B12, LUIS ALFREDO, FE and TIBC, CREAT, ADDONUAPLUS, LDH #### [facility] [address] [place] [address] #### ANCA PROF #### [facility] , WBC (Bld) [#/Vol] 10.5 10*3/uL Normal 3.8-11.6 [facility] Comment on above: Order Comment: Reaso n for Exam Chronic diastolic congestive heart failure Performed By: #### H APT, CRP, B12, LUIS ALFREDO, FE and TIBC, CREAT, ADDONUAPLUS, LDH #### [facility] [address] [place] [address] [place] #### ANCA PROF #### [facility] , Comprehensive Metabolic Pane dinora 02-28-2023 Albumin [Mass/Vol] 4.2 g/dL Normal 3.5-5.7 [facility] Comment on above: Order Comment: Reaso n for Exam Chronic diastolic congestive heart failure Reason for Exam Bone pain Performed By: #### H APT, CRP, B12, LUIS ALFREDO, FE and TIBC, CREAT, ADDONUAPLUS, LDH #### [facility] [address] [place] [address] [place] #### ANCA PROF #### [facility] , Albumin/Globulin [Mass ratio] 1.2 {ratio} Normal [facility] Comment on above: Order Comment: Reaso n for Exam Chronic diastolic congestive heart failure Reason for Exam Bone pain Performed By: #### H APT, CRP, B12, LUIS ALFREDO, FE and TIBC, CREAT, ADDONUAPLUS, LDH #### [facility] [address] [place] [address] #### ANCA PROF #### [facility] , ALP [Catalytic activity/Vol] 142 U/L High 34-[address] [facility] Comment on above: Order Comment: Reaso n for Exam Chronic diastolic congestive heart failure Reason for Exam Bone pain Performed By: #### H APT, CRP, B12, LUIS ALFREDO, FE and TIBC, CREAT, ADDONUAPLUS, LDH #### [facility] [address] [place] [address] [place] #### ANCA PROF #### [facility] , ALT [Catalytic activity/Vol] 12 U/L Normal 7-[address] [facility] Comment on above: Order Comment: Reaso n for Exam Chronic diastolic congestive heart failure Reason for Exam Bone pain Performed By: #### H APT, CRP, B12, LUIS ALFREDO, FE and TIBC, CREAT, ADDONUAPLUS, LDH #### [facility] [address] [place] [address] [place] #### ANCA PROF #### [facility] , Anion gap [Moles/Vol] 13.2 mmol/L Normal 6.0-15.[address] [facility] Comment on above: Order Comment: Reaso n for Exam Chronic diastolic congestive heart failure Reason for Exam Bone pain Performed By: #### H APT, CRP, B12, LUIS ALFREDO, FE and TIBC, CREAT, ADDONUAPLUS, LDH #### [facility] [address] [place] [address] [place] #### ANCA PROF #### [facility] , AST [Catalytic activity/Vol] 15 U/L Normal 13-[address] [facility] Comment on above: Order Comment: Reaso n for Exam Chronic diastolic congestive heart failure Reason for Exam Bone pain Performed By: #### H APT, CRP, B12, LUIS ALFREDO, FE and TIBC, CREAT, ADDONUAPLUS, LDH #### [facility] [address] [place] [address] #### ANCA PROF #### [facility] , Bilirubin [Mass/Vol] 0.4 mg/dL Normal 0.3-1.0 [facility] Comment on above: Order Comment: Reaso n for Exam Chronic diastolic congestive heart failure Reason for Exam Bone pain Performed By: #### H APT, CRP, B12, LUIS ALFREDO, FE and TIBC, CREAT, ADDONUAPLUS, LDH #### [facility] [address] [place] [address] #### ANCA PROF #### [facility] , Calcium [Mass/Vol] 10.5 mg/dL High 8.6-10.3 [facility] Comment on above: Order Comment: Reaso n for Exam Chronic diastolic congestive heart failure Reason for Exam Bone pain Performed By: #### H APT, CRP, B12, LUIS ALFREDO, FE and TIBC, CREAT, ADDONUAPLUS, LDH #### [address] #### ANCA PROF #### [facility] , Chloride [Moles/Vol] 98 mmol/L Normal 98-107 [facility] Comment on above: Order Comment: Reaso n for Exam Chronic diastolic congestive heart failure Reason for Exam Bone pain Performed By: #### H APT, CRP, B12, LUIS ALFREDO, FE and TIBC, CREAT, ADDONUAPLUS, LDH #### [facility] [address] [place] [address] [place] #### ANCA PROF #### [facility] , CO2 [Moles/Vol] 23.8 mmol/L Normal 21.0-31.0 [facility] Comment on above: Order Comment: Reaso n for Exam Chronic diastolic congestive heart failure Reason for Exam Bone pain Performed By: #### H APT, CRP, B12, LUIS ALFREDO, FE and TIBC, CREAT, ADDONUAPLUS, LDH #### [facility] [address] [place] [address] [place] #### ANCA PROF #### [facility] , Creatinine [Mass/Vol] 1.43 mg/dL High 0.60-1.20 [facility] Comment on above: Order Comment: Reaso n for Exam Chronic diastolic congestive heart failure Reason for Exam Bone pain Performed By: #### H APT, CRP, B12, LUIS ALFREDO, FE and TIBC, CREAT, ADDONUAPLUS, LDH #### [facility] [address] [place] [address] #### ANCA PROF #### [facility] , GFR/1.73 sq M.predicted MDRD (S/P/Bld) [Vol rate/Area] 39.456 mL/min/{1.73_m2} [facility] Comment on above: Order Comment: Reaso n for Exam Chronic diastolic congestive heart failure Reason for Exam Bone pain Performed By: #### H APT, CRP, B12, LUIS ALFREDO, FE and TIBC, CREAT, ADDONUAPLUS, LDH #### [facility] [address] [place] [address] #### ANCA PROF #### [facility] , Globulin (S) [Mass/Vol] 3.6 g/dL Normal [facility] Comment on above: Order Comment: Reaso n for Exam Chronic diastolic congestive heart failure Reason for Exam Bone pain Performed By: #### H APT, CRP, B12, LUIS ALFREDO, FE and TIBC, CREAT, ADDONUAPLUS, LDH #### [facility] [address] [place] [address] [place] #### ANCA PROF #### [facility] , Glucose [Mass/Vol] 100 mg/dL Normal 70-100 [facility] Comment on above: Order Comment: Reaso n for Exam Chronic diastolic congestive heart failure Reason for Exam Bone pain Result Comment: [facility] Glucose Reference Range is dependent on time and content of last meal. Glucose of more than 200 mg/dL in a nonstressed, ambulatory subject supports the diagnosis of Diabetes Mellitus. ADA recommended reference range Performed By: #### H APT, CRP, B12, LUIS ALFREDO, FE and TIBC, CREAT, ADDONUAPLUS, LDH #### [facility] [address] [place] [address] [place] #### ANCA PROF #### [facility] , Potassium [Moles/Vol] 4.0 mmol/L Normal 3.5-5.1 [facility] Comment on above: Order Comment: Reaso n for Exam Chronic diastolic congestive heart failure Reason for Exam Bone pain Performed By: #### H APT, CRP, B12, LUIS ALFREDO, FE and TIBC, CREAT, ADDONUAPLUS, LDH #### [place] [address] [place] #### ANCA PROF #### [facility] , Protein [Mass/Vol] 7.8 g/dL Normal 6.4-8.9 [facility] Comment on above: Order Comment: Reaso n for Exam Chronic diastolic congestive heart failure Reason for Exam Bone pain Performed By: #### H APT, CRP, B12, LUIS ALFREDO, FE and TIBC, CREAT, ADDONUAPLUS, LDH #### [place] [address] [place] #### ANCA PROF #### [facility] , Sodium [Moles/Vol] 131 mmol/L Low 136-145 [facility] Comment on above: Order Comment: Reaso n for Exam Chronic diastolic congestive heart failure Reason for Exam Bone pain Performed By: #### H APT, CRP, B12, LUIS ALFREDO, FE and TIBC, CREAT, ADDONUAPLUS, LDH #### [place] [address] [place] #### ANCA PROF #### [facility] , Urea nitrogen [Mass/Vol] 27 mg/dL High 7-[address] [facility] Comment on above: Order Comment: Reaso n for Exam Chronic diastolic congestive heart failure Reason for Exam Bone pain Performed By: #### H APT, CRP, B12, LUIS ALFREDO, FE and TIBC, CREAT, ADDONUAPLUS, LDH #### [facility] [address] #### ANCA PROF #### [facility] , Creatinine [Mass/volume] in Serum or PlasmaOrdered By: Delfina Trevino on 02-28-2023 Creatinine [Mass/Vol] 1.43 mg/dL 0.60-1.20 [facility] Eosinophils Auto (Bld) [#/Vo l]Ordered By: Delfina Trevino on 02-28-2023 Eosinophils (Bld) [#/Vol] 0.6 10*3/uL 0.0-0.[address] [facility] Eosinophils/100 WBC Auto (Bl d)Ordered By: Delfina Trevino on 02-28-2023 Eosinophils/100 WBC (Bld) 5.5 % . [facility] Erythrocyte distribution wid th Auto (RBC) [Ratio]Ordered By: Delfina Trevino on 02-28-2023 Erythrocyte distribution width (RBC) [Ratio] 18.1 % 11.9-15.[address] [facility] Globulin Calc (S) [Mass/Vol] Ordered By: Delfina Trevino on 02-28-2023 Globulin (S) [Mass/Vol] 3.6 g/dL [facility] Glucose [Mass/volume] in Ser um or PlasmaOrdered By: Delfina Trevino on 02-28-2023 Glucose [Mass/Vol] 100 mg/dL 70-100 [facility] Comment on above: ADA recommended refe rence rangeRandom Glucose Reference Range is dependent on time and content of last meal. Glucose of more than 200 mg/dL in a nonstressed, ambulatory subject supports the diagnosis of Diabetes Mellitus. Hematocrit Auto (Bld) [Volum e fraction]Ordered By: Delfina Trevino on 02-28-2023 Hematocrit (Bld) [Volume fraction] 33.6 % 34.0-46.[address] [facility] Hemoglobin [Mass/volume] in BloodOrdered By: Delfina Trevino on 02-28-2023 Hemoglobin (Bld) [Mass/Vol] 11.4 g/dL 11.8-15.[address] [facility] Leukocytes [#/volume] correc candelario for nucleated erythrocytes in Blood by Automated counOrdered By: Delfina Trevino on 02-28-2023 WBC corrected for nucl RBC Auto (Bld) [#/Vol] 10.5 10*3/uL 3.8-11.[address] [facility] Lymphocytes Auto (Bld) [#/Vo l]Ordered By: Delfina Trevino on 02-28-2023 Lymphocytes (Bld) [#/Vol] 2.2 10*3/uL 1.00-4.[address] [facility] Lymphocytes/100 WBC Auto (Bl d)Ordered By: Delfina Trevino on 02-28-2023 Lymphocytes/100 WBC (Bld) 21.4 % . [facility] MCH Auto (RBC) [Entitic mass ]Ordered By: Delfina Trevino on 02-28-2023 MCH (RBC) [Entitic mass] 28.4 pg 24.7-34.[address] [facility] MCHC Auto (RBC) [Mass/Vol]Or dered By: Delfina Trevino on 02-28-2023 MCHC (RBC) [Mass/Vol] 34.1 g/dL 32.0-35.0 [facility] MCV Auto (RBC) [Entitic vol] Ordered By: Delfina Trevino on 02-28-2023 MCV (RBC) [Entitic vol] 83.5 fL 80-100 [facility] Monocytes Auto (Bld) [#/Vol] Ordered By: Delfina Trevino on 02-28-2023 Monocytes (Bld) [#/Vol] 0.7 10*3/uL 0.0-0.[address] [facility] Monocytes/100 WBC Auto (Bld) Ordered By: Delfina Trevino on 02-28-2023 Monocytes/100 WBC (Bld) 6.8 % . [facility] NM jony perf SPECT rest stron 02-28-2023 NM jony perf SPECT rest str [facility] [address] Nuclear Medicine Report Signed Patient: Corie Courtney MR#: [id number] : 1950 Acct:[id number] Age/Sex: 72 / F ADM Date: 02/28/23 Loc: [place] Room: Type: [facility] Attending Dr: Delfina Trevino APRN, CLAIMS ACCOUNT SPECIALIST-C Copies to: Delfina Trevino APRN,[place] [employer] Jaquelin Connell MD Ordering Provider: Delfina Trevino APRN, CNP Date of Service: 02/28/23 NM/NM jony perf SPECT rest str: I50.32 REASON FOR STUDY: Chest pain and preoperative risk assessment. PROCEDURE: The patient underwent 1-day rest/stress protocol. Rest images obtained by injecting 6.6 mCi of Cardiolite. Stress images obtained by injecting 19.6 mCi of Cardiolite. Subsequently, gated SPECT and ejection fraction studies were performed. IMAGING RESULT: This appears to be a fair study. There is no clear pattern of ischemia or myocardial infarction. Left ventricular ejection fraction appears normal, calculated at 93%. TID index normal at 1.06. CONCLUSION: 1. No clear pattern of ischemia or myocardial infarction. 2. Normal left ventricular systolic function and wall motion. 3. No previous study available for comparison. Transcribed By: NTS 02/28/232003 Dictated By: Jaquelin Connell MD 02/28/23 1700 Signed By: 03/02/23 [address] [facility] Neutrophils Auto (Bld) [#/Vo l]Ordered By: Delfina Trevino on 02-28-2023 Neutrophils (Bld) [#/Vol] 6.9 10*3/uL 1.8-7.[address] [facility] Neutrophils/100 WBC Auto (Bl d)Ordered By: Delfina Trevino on 02-28-2023 Neutrophils/100 WBC (Bld) 65.4 % . [facility] No Panel InformationOrdered By: Delfina Trevino on 02-28-2023 Estimated GFR (CKD-EPI) 39.456 mL/Min [facility] Creatinine Clearance (Chem N/A [facility] Nucleated erythrocytes [Pres ence] in Blood by Automated countOrdered By: Delfina Trevino on 02-28-2023 Nucleated RBC Auto Ql (Bld) 0.1 /100{WBC} 0-0.[address] [facility] Platelet mean volume Auto (B ld) [Entitic vol]Ordered By: Delfina Trevino on 02-28-2023 Platelet mean volume (Bld) [Entitic vol] 7.0 fL 6.3-10.[address] [facility] Platelets Auto (Bld) [#/Vol] Ordered By: Delfina Trevino on 02-28-2023 Platelets (Bld) [#/Vol] 536 10*3/uL 150-[address] [facility] Potassium [Moles/volume] in Serum or PlasmaOrdered By: Delfina Trevino on 02-28-2023 Potassium [Moles/Vol] 4.0 mmol/L 3.5-5.1 [facility] Protein [Mass/volume] in Ser um or PlasmaOrdered By: Delfina Trevino on 02-28-2023 Protein [Mass/Vol] 7.8 g/dL 6.4-8.9 [facility] RBC Auto (Bld) [#/Vol]Ordere d By: Delfina Trevino on 02-28-2023 RBC (Bld) [#/Vol] 4.02 10*6/uL 3.60-5.00 [facility] STR cardiac stress/lexiscano n 02-28-2023 STR cardiac stress/lexiscan [facility] [address] Cardiac Stress Test Signed Patient: Corie Courtney MR#: [id number] : 1950 Acct:[id number] Age/Sex: 72 / F ADM Date: 02/28/23 Loc: [place] Room: Type: [facility] Attending Dr: Delfina Trevino APRN, CLAIMS ACCOUNT SPECIALIST-C Copies to: Delfina K MyerIFTIKHAR mittal CNP Mourhaf A Traboulssi, MD Ordering Provider: Delfina Trevino APRN, CNP Date of Service: 02/28/23 STR/STR cardiac stress/lexiscan: Chronic diastolic congestive heart failure REFERRING PHYSICIAN: Delfina Trevino APRN, NP-C REASON FOR STUDY: Heart failure and surgical clearance. PROCEDURE: The patient underwent Lexiscan myocardial perfusion study. The patient was injected with 0.4 mg of Lexiscan, following which no symptoms reported. Blood pressure and heart response to Lexiscan was physiologic. Baseline ECG showed normal sinus rhythm. No ST-T changes. Following Lexiscan, no changes were seen. CONCLUSION: 1. Lexiscan Cardiolite stress test without diagnostic ST-T changes for ischemia. 2. No provoked chest pain or arrhythmia. 3. Appropriate hemodynamic response to Lexiscan. 4. Myocardial perfusion study is pending and will be dictated separately. Transcribed By: BARRERA 02/28/23 1344 Dictated By: Jaquelin Connell MD 02/28/23 1041 Signed By: 02/28/[address] [facility] Serum or plasma albumin/glob ulin mass ratioOrdered By: Delfina Trevino on 02-28-2023 Albumin/Globulin [Mass ratio] 1.2 {ratio} [facility] Serum or plasma anion gap de terminationOrdered By: Delfina Trevino on 02-28-2023 Anion gap [Moles/Vol] 13.2 mmol/L 6.0-15.[address] [facility] Sodium [Moles/volume] in Ser um or PlasmaOrdered By: Delfina Trevino on 02-28-2023 Sodium [Moles/Vol] 131 mmol/L 136-145 [facility] Urea nitrogen [Mass/volume] in Serum or PlasmaOrdered By: Delfina Trevino on 02-28-2023 Urea nitrogen [Mass/Vol] 27 mg/dL 7-[address] [facility] Vitamin D 25 Hydroxy Totalon 02-28-2023 Vitamin D 25 Hydroxy Total 60.0 ng/mL Normal 30-[address] [facility] Comment on above: Order Comment: Reaso n for Exam Chronic diastolic congestive heart failure Reason for Exam Bone pain Result Comment: ARACELIS MIN D STATUS 25(OH)VITAMIN D RANGE (ng/mL) Deficient <20 Insufficient 20 to <30 Sufficient 30 to 100 Reference: Melissa Green, Hernán BUNDY, et al. Evaluation,treatment, and prevention of vitamin D deficiency; an Endocrine Society clinical practice guideline. JCEM. 2010; 96(7):191-. PERFORMED BY: [place] [address] PATHOLOGIST ACCOUNTING RECONCILIATION CLERK JOSEY BOUCHER M.D. Performed By: #### H APT, CRP, B12, LUIS ALFREDO, FE and TIBC, CREAT, ADDONUAPLUS, LDH #### [address] #### ANCA PROF #### [facility] , Vitamin D+Metabolites [Mass/ volume] in Serum or PlasmaOrdered By: Delfina Trevino on 02-28-2023 Vitamin D+Metabolites [Mass/Vol] 60.0 ng/mL 30-[address] [facility] Comment on above: VITAMIN D STATUS 25( OH)VITAMIN D RANGE (ng/mL) Deficient <20 Insufficient 20 to <30Sufficient 30 to 100Reference: Melissa Green, Hernán BUNDY, et al. Evaluation,treatment, and prevention of vitamin D deficiency; an Endocrine Society clinical practice guideline. JCEM. 2010; 96(7):191-. WBC Auto (Bld) [#/Vol]Ordere d By: Delfina Trevino on 02-28-2023 WBC (Bld) [#/Vol] 10.5 10*3/uL 3.8-11.6 [facility] XR chest 2V*on 02-28-2023 XR chest 2V* [facility] Main [place] [address] [place] [address] XRay Report Signed Patient: Corie Courtney MR#: [id number] : 1950 Acct:[id number] Age/Sex: 72 / F ADM Date: 02/28/23 Loc: [place] Room: Type: [facility] CLI Attending Dr: Delfina Trevino APRN, CLAIMS ACCOUNT SPECIALIST-C Copies to: Delfina Trevino APRN,NAUN Ordering Provider: Delfina Trevino APRN, CNP Date of Service: 02/28/23 XR/XR chest 2V*: COPD (chronic obstructive pulmonary disease) PA AND LATERAL CHEST: CLINICAL HISTORY: Follow-up COPD COMPARISON: 04/16/2022 The lungs are hyperinflated. There is no focal parenchymal consolidation, effusion or pneumothorax. The cardiac, hilar and mediastinal silhouettes are within normal limits. There is no vascular congestion. The visualized bony structures are osteopenic. There is subtle dextroscoliotic curvature and minor endplate spurring. Degenerative change is seen at the right shoulder. XR/XR chest 2V* IMPRESSION: OBSTRUCTIVE LUNG DISEASE. NO ACUTE FINDINGS. Impression dictated by: Jeanna Denton M.D.02/28/2023 9:34 AM Dictation Location: [place] [address] Transcribed By: [facility] 02/28/23 0934 Dictated By: Jeanna Denton MD 02/28/23 0932 Signed By: 02/28/23 [address] [facility] XR hip RT min 2V(w/wo pelvis )*on 12-16-2022 XR hip RT min 2V(w/wo pelvis)* [facility] [address] XRay Report Signed Patient: Corie Courtney MR#: [id number] : 1950 Acct:[id number] Age/Sex: 72 / F ADM Date: 12/16/22 Loc: ER Room: Type: [facility] ER Attending Dr: Copies to: Layo Sheridan APRN Ordering Provider: Layo Sheridan APRN Date of Service: 12/16/22 XR/XR hip RT min 2V(w/wo pelvis)*: Extremity Injury, Lower 2 views of the right hip with single view pelvis plain film COMPARISON:None HISTORY:Right groin pain for 3 weeks with extension down the right leg ACUTE FINDINGS:None DEGENERATIVE CHANGE:[id number] contact of the superior portion of the right hip joint with subarticular sclerotic and cystic changes and marginal spurring identified. Moderate left hip degeneration. Mild bilateral SI joint degeneration. SOFT TISSUE FINDINGS:Unremarkable JOINT EFFUSION:None POSTOP CHANGES:None BONY MINERALIZATION:[place] te XR/XR hip RT min 2V(w/wo pelvis)* IMPRESSION:Extensive right hip degeneration. Impression dictated by: Akil Osman M.D.12/16/2022 6:52 PM Dictation Location: [place] [address] Transcribed By: [facility] 12/16/221851 Dictated By: Akil Osman DO 12/16/221849 Signed By: 12/16/221851 Normal [facility] ANCA Profile (ANCA+MPO+PR3)o n 06-16-2022 Antimyeloperoxidase (MPO) Abs 2.5 High 0.0-0.[address] [facility] Comment on above: Performed By: #### A SHILPAONUAPLUS, CUU #### [address] Atypical pANCA 1:160 High Neg:<1:[address] [facility] Comment on above: Result Comment: The atypical pANCA pattern has been observed in a significant percentage of patients with ulcerative colitis, primary sclerosing cholangitis and autoimmune hepatitis. Performed at: - [facility] [id number] Calenderer: Kirsten Sosa MD, Phone: [phone] Performed at: [facility] [id number] Calenderer: Stone Tucker PhD, Phone: [phone] Performed By: #### A DDONUAPLUS, CUU #### [facility] [address] [place] [address] [place] Cytoplasmic (C-ANCA) <1:20 Normal Neg:<1:20 [facility] Comment on above: Performed By: #### A DDONUAPLUS, CUU #### [facility] [address] [place] [address] [place] Perinuclear (P-ANCA) <1:20 Normal Neg:<1:20 [facility] Comment on above: Result Comment: The presence of positive fluorescence exhibiting P-ANCA or C-ANCA patterns alone is not specific for the diagnosis of Jana's Granulomatosis (WG) or microscopic polyangiitis. Decisions about treatment should not be based solely on ANCA IFA results. The International ANCA Group Consensus recommends follow up testing of positive sera with both AK- 3 and MPO-ANCA enzyme immunoassays. As many as 5% serum samples are positive only by EIA. Ref. AM J Clin Pathol 1999;111:507-513. Performed By: #### A DDONUAPLUS, CUU #### [address] Proteinase 3 (PR3) Antibodies <0.2 Normal 0.0-0.[address] [facility] Comment on above: Result Comment: PERF ORMED BY: [place] [address] PATHOLOGIST ACCOUNTING RECONCILIATION CLERK JOSEY BOUCHER M.D. Performed By: #### A DDONUAPLUS, CUU #### [place] [address] [place] C-Reactive Proteinon 022 C-Reactive Protein 3.7 mg/dL High 0.0-1.0 [facility] Comment on above: Performed By: #### A DDONUAPLUS, CUU #### [address] Complete Blood Count Auto Di ffon 06-16-2022 Basophils (Bld) [#/Vol] 0.1 10*3/uL Normal 0.0-0.[address] [facility] Comment on above: Order Comment: BLOOD SMEAR Performed By: #### E SR, RETIC, CBC #### [place] [address] [place] Basophils/100 WBC (Bld) 1.0 % Normal . [facility] Comment on above: Order Comment: BLOOD SMEAR Performed By: #### E SR, RETIC, CBC #### [place] [address] [place] Eosinophils (Bld) [#/Vol] 0.4 10*3/uL Normal 0.0-0.[address] [facility] Comment on above: Order Comment: BLOOD SMEAR Performed By: #### E SR, RETIC, CBC #### [address] Eosinophils/100 WBC (Bld) 4.5 % Normal . [facility] Comment on above: Order Comment: BLOOD SMEAR Performed By: #### E SR, RETIC, CBC #### [address] Erythrocyte distribution width (RBC) [Ratio] 18.1 % High 11.9-15.[address] [facility] Comment on above: Order Comment: BLOOD SMEAR Performed By: #### E SR, RETIC, CBC #### [address] Hematocrit (Bld) [Volume fraction] 32.8 % Low 34.0-46.[address] [facility] Comment on above: Order Comment: BLOOD SMEAR Performed By: #### E SR, RETIC, CBC #### [address] Hemoglobin (Bld) [Mass/Vol] 10.6 g/dL Low 11.8-15.[address] [facility] Comment on above: Order Comment: BLOOD SMEAR Performed By: #### E SR, RETIC, CBC #### [address] Lymphocytes (Bld) [#/Vol] 2.4 10*3/uL Normal 1.00-4.[address] [facility] Comment on above: Order Comment: BLOOD SMEAR Performed By: #### E SR, RETIC, CBC #### [place] [address] [place] Lymphocytes/100 WBC (Bld) 25.9 % Normal . [facility] Comment on above: Order Comment: BLOOD SMEAR Performed By: #### E SR, RETIC, CBC #### [address] MCH (RBC) [Entitic mass] 25.2 pg Normal 24.7-34.[address] [facility] Comment on above: Order Comment: BLOOD SMEAR Performed By: #### E SR, RETIC, CBC #### [facility] [address] [place] [address] [place] MCV (RBC) [Entitic vol] 78.1 fL Low 80-100 [facility] Comment on above: Order Comment: BLOOD SMEAR Performed By: #### E SR, RETIC, CBC #### [facility] [address] [place] [address] [place] Mean Corpuscular HGB Conc 32.3 g/dL Normal 32.0-35.[address] [facility] Comment on above: Order Comment: BLOOD SMEAR Performed By: #### E SR, RETIC, CBC #### [facility] [address] [place] [address] [place] Monocytes (Bld) [#/Vol] 0.7 10*3/uL Normal 0.0-0.[address] [facility] Comment on above: Order Comment: BLOOD SMEAR Performed By: #### E SR, RETIC, CBC #### [facility] [address] [place] [address] [place] Monocytes/100 WBC (Bld) 7.1 % Normal . [facility] Comment on above: Order Comment: BLOOD SMEAR Performed By: #### E SR, RETIC, CBC #### [place] [address] [place] Neutrophils (Bld) [#/Vol] 5.8 10*3/uL Normal 1.8-7.[address] [facility] Comment on above: Order Comment: BLOOD SMEAR Performed By: #### E SR, RETIC, CBC #### [place] [address] [place] Neutrophils/100 WBC (Bld) 61.5 % Normal . [facility] Comment on above: Order Comment: BLOOD SMEAR Performed By: #### E SR, RETIC, CBC #### [facility] [address] [place] [address] [place] Nucleated RBC/100 WBC (Bld) [Ratio] 0.1 % Normal 0-0.[address] [facility] Comment on above: Order Comment: BLOOD SMEAR Performed By: #### E SR, RETIC, CBC #### [facility] [address] Platelet mean volume (Bld) [Entitic vol] 7.3 fL Normal 6.3-10.[address] [facility] Comment on above: Order Comment: BLOOD SMEAR Performed By: #### E SR, RETIC, CBC #### [facility] [address] Platelets (Bld) [#/Vol] 694 10*3/uL High 150-[address] [facility] Comment on above: Order Comment: BLOOD SMEAR Performed By: #### E SR, RETIC, CBC #### [facility] [address] [place] [address] [place] RBC (Bld) [#/Vol] 4.20 10*6/uL Normal 3.60-5.00 [facility] Comment on above: Order Comment: BLOOD SMEAR Performed By: #### E SR, RETIC, CBC #### [place] [address] [place] WBC (Bld) [#/Vol] 9.4 10*3/uL Normal 4.5-11.0 [facility] Comment on above: Order Comment: BLOOD SMEAR Performed By: #### E SR, RETIC, CBC #### [address] Basophils (Bld) [#/Vol] 0.1 10*3/uL Normal 0.0-0.[address] [facility] Comment on above: Order Comment: Reaso n for Exam Anemia, unspecified type Result Comment: PERF ORMED BY: [place] [address] PATHOLOGIST ACCOUNTING RECONCILIATION CLERK JOSEY BOUCHER M.D. Performed By: #### A GUSTAVO CUU #### [address] Basophils/100 WBC (Bld) 1.1 % Normal . [facility] Comment on above: Order Comment: Reaso n for Exam Anemia, unspecified type Performed By: #### A DDLEVUAMARIAM, CUU #### [address] Eosinophils (Bld) [#/Vol] 0.4 10*3/uL Normal 0.0-0.[address] [facility] Comment on above: Order Comment: Reaso n for Exam Anemia, unspecified type Performed By: #### A DDONUAPLUS, CUU #### [place] [address] [place] Eosinophils/100 WBC (Bld) 3.9 % Normal . [facility] Comment on above: Order Comment: Reaso n for Exam Anemia, unspecified type Performed By: #### A DDONUAPLUS, CUU #### [address] Erythrocyte distribution width (RBC) [Ratio] 18.2 % High 11.9-15.[address] [facility] Comment on above: Order Comment: Reaso n for Exam Anemia, unspecified type Performed By: #### A DDONUAPLUS, CUU #### [address] Hematocrit (Bld) [Volume fraction] 34.3 % Normal 34.0-46.[address] [facility] Comment on above: Order Comment: Reaso n for Exam Anemia, unspecified type Performed By: #### A DDONUAPLUS, CUU #### [address] Hemoglobin (Bld) [Mass/Vol] 10.9 g/dL Low 11.8-15.[address] [facility] Comment on above: Order Comment: Reaso n for Exam Anemia, unspecified type Performed By: #### A DDONUAPLUS, CUU #### [place] [address] [place] Lymphocytes (Bld) [#/Vol] 2.5 10*3/uL Normal 1.00-4.[address] [facility] Comment on above: Order Comment: Reaso n for Exam Anemia, unspecified type Performed By: #### A DDONUAPLUS, CUU #### [place] [address] [place] Lymphocytes/100 WBC (Bld) 25.9 % Normal . [facility] Comment on above: Order Comment: Reaso n for Exam Anemia, unspecified type Performed By: #### A DDONUAPLUS, CUU #### [facility] [address] MCH (RBC) [Entitic mass] 24.9 pg Normal 24.7-34.[address] [facility] Comment on above: Order Comment: Reaso n for Exam Anemia, unspecified type Performed By: #### A DDONUAPLUS, CUU #### [address] MCV (RBC) [Entitic vol] 78.6 fL Low 80-100 [facility] Comment on above: Order Comment: Reaso n for Exam Anemia, unspecified type Performed By: #### A DDONUAPLUS, CUU #### [facility] [address] [place] [address] Mean Corpuscular HGB Conc 31.7 g/dL Low 32.0-35.[address] [facility] Comment on above: Order Comment: Reaso n for Exam Anemia, unspecified type Performed By: #### A DDONUAPLUS, CUU #### [facility] [address] [place] [address] [place] Monocytes (Bld) [#/Vol] 0.7 10*3/uL Normal 0.0-0.[address] [facility] Comment on above: Order Comment: Reaso n for Exam Anemia, unspecified type Performed By: #### A DDONUAPLUS, CUU #### [facility] [address] [place] [address] [place] Monocytes/100 WBC (Bld) 6.8 % Normal . [facility] Comment on above: Order Comment: Reaso n for Exam Anemia, unspecified type Performed By: #### A DDONUAPLUS, CUU #### [place] [address] [place] Neutrophils (Bld) [#/Vol] 6.0 10*3/uL Normal 1.8-7.[address] [facility] Comment on above: Order Comment: Reaso n for Exam Anemia, unspecified type Performed By: #### A DDONUAPLUS, CUU #### [facility] [address] [place] [address] [place] Neutrophils/100 WBC (Bld) 62.3 % Normal . [facility] Comment on above: Order Comment: Reaso n for Exam Anemia, unspecified type Performed By: #### A DDONUAPLUS, CUU #### [facility] [address] [place] [address] [place] Nucleated RBC/100 WBC (Bld) [Ratio] 0.1 % Normal 0-0.[address] [facility] Comment on above: Order Comment: Reaso n for Exam Anemia, unspecified type Performed By: #### A DDONUAPLUS, CUU #### [place] [address] [place] Platelet mean volume (Bld) [Entitic vol] 7.6 fL Normal 6.3-10.[address] [facility] Comment on above: Order Comment: Reaso n for Exam Anemia, unspecified type Performed By: #### A DDONUAPLUS, CUU #### [facility] [address] [place] [address] [place] Platelets (Bld) [#/Vol] 594 10*3/uL High 150-[address] [facility] Comment on above: Order Comment: Reaso n for Exam Anemia, unspecified type Performed By: #### A DDONUAPLUS, CUU #### [facility] [address] [place] [address] [place] RBC (Bld) [#/Vol] 4.36 10*6/uL Normal 3.60-5.00 [facility] Comment on above: Order Comment: Reaso n for Exam Anemia, unspecified type Performed By: #### A DDONUAPLUS, CUU #### [facility] [address] [place] [address] [place] WBC (Bld) [#/Vol] 9.7 10*3/uL Normal 4.5-11.0 [facility] Comment on above: Order Comment: Reaso n for Exam Anemia, unspecified type Performed By: #### A DDONUAPLUS, CUU #### [facility] [address] [place] [address] Comprehensive Metabolic Pane dinora 06-16-2022 Albumin [Mass/Vol] 3.1 g/dL Low 3.2-5.5 [facility] Comment on above: Order Comment: Reaso n for Exam Essential (primary) hypertension Performed By: #### A GUSTAVO, CUU #### [address] Albumin/Globulin [Mass ratio] 0.8 {ratio} Normal [facility] Comment on above: Order Comment: Reaso n for Exam Essential (primary) hypertension Performed By: #### A GUSTAVO, CUU #### [address] ALP [Catalytic activity/Vol] 130 U/L High 32-[address] [facility] Comment on above: Order Comment: Reaso n for Exam Essential (primary) hypertension Result Comment: PERF ORMED BY: [place] [address] PATHOLOGIST ACCOUNTING RECONCILIATION CLERK JOSEY BOUCHER M.D. Performed By: #### A GUSTAVO, CUU #### [address] ALT [Catalytic activity/Vol] 17 U/L Normal 10-[address] [facility] Comment on above: Order Comment: Reaso n for Exam Essential (primary) hypertension Performed By: #### A DDCONNIE, CUU #### [address] Anion gap [Moles/Vol] 12.3 mmol/L Normal 6.0-15.[address] [facility] Comment on above: Order Comment: Reaso n for Exam Essential (primary) hypertension Performed By: #### A DDONUAPLUS, CUU #### [address] AST [Catalytic activity/Vol] 18 U/L Normal 10-[address] [facility] Comment on above: Order Comment: Reaso n for Exam Essential (primary) hypertension Performed By: #### A DDONUAPLUS, CUU #### [facility] [address] [place] [id number] [place] Bilirubin [Mass/Vol] 0.5 mg/dL Normal 0.3-1.2 [facility] Comment on above: Order Comment: Reaso n for Exam Essential (primary) hypertension Performed By: #### A DDONUAPLUS, CUU #### [facility] [address] [place] [id number] [facility] Calcium [Mass/Vol] 9.5 mg/dL Normal 8.2-10.2 [facility] Comment on above: Order Comment: Reaso n for Exam Essential (primary) hypertension Performed By: #### A DDONUAPLUS, CUU #### [facility] [address] [place] [id number] [facility] Chloride [Moles/Vol] 98 mmol/L Normal 95-114 [facility] Comment on above: Order Comment: Reaso n for Exam Essential (primary) hypertension Performed By: #### A DDONUAPLUS, CUU #### [facility] [address] [place] [id number] [facility] CO2 [Moles/Vol] 23.2 mmol/L Normal 22.0-30.0 [facility] Comment on above: Order Comment: Reaso n for Exam Essential (primary) hypertension Performed By: #### A DDONUAPLUS, CUU #### [facility] [address] [place] [id number] [place] Creatinine [Mass/Vol] 1.02 mg/dL Normal 0.44-1.03 [facility] Comment on above: Order Comment: Reaso n for Exam Essential (primary) hypertension Performed By: #### A DDONUAPLUS, CUU #### [facility] [address] [place] [id number] [place] Estimated GFR ( Ysabel > [address] [facility] Comment on above: Order Comment: Reaso n for Exam Essential (primary) hypertension Result Comment: GFR estimated reference range: According to KDOQI guidelines, <60 ml/min/1.73m2 is sufficient to diagnose a patient with chronic kidney disease. Performed By: #### A DDONUAPLUS, CUU #### [facility] [address] Estimated GFR (Non- Am [address] [facility] Comment on above: Order Comment: Reaso n for Exam Essential (primary) hypertension Performed By: #### A DDONUAPLUS, CUU #### [facility] [address] Globulin (S) [Mass/Vol] 3.9 g/dL Normal [facility] Comment on above: Order Comment: Reaso n for Exam Essential (primary) hypertension Performed By: #### A DDONUAPLUS, CUU #### [facility] [address] Glucose [Mass/Vol] 87 mg/dL Normal 70-100 [facility] Comment on above: Order Comment: Reaso n for Exam Essential (primary) hypertension Result Comment: [place] Glucose Reference Range is dependent on time and content of last meal. Glucose of more than 200 mg/dL in a nonstressed, ambulatory subject supports the diagnosis of Diabetes Mellitus. ADA recommended reference range Performed By: #### A DDONUAPLUS, CUU #### [address] Potassium [Moles/Vol] 4.5 mmol/L Normal 3.5-5.1 [facility] Comment on above: Order Comment: Reaso n for Exam Essential (primary) hypertension Performed By: #### A DDONUAPLUS, CUU #### [address] Protein [Mass/Vol] 7.0 g/dL Normal 6.1-7.9 [facility] Comment on above: Order Comment: Reaso n for Exam Essential (primary) hypertension Performed By: #### A DDONUAPLUS, CUU #### [address] Sodium [Moles/Vol] 129 mmol/L Low 136-146 [facility] Comment on above: Order Comment: Reaso n for Exam Essential (primary) hypertension Performed By: #### A DDONUAPLUS, CUU #### [address] Urea nitrogen [Mass/Vol] 14 mg/dL Normal 9-[address] [facility] Comment on above: Order Comment: Reaso n for Exam Essential (primary) hypertension Performed By: #### A DDONUAPLUS, CUU #### [address] Creatinineon 06-16-2022 Creatinine [Mass/Vol] 0.98 mg/dL Normal 0.44-1.03 [facility] Comment on above: Performed By: #### H APT, CRP, B12, LUIS ALFREDO, FE and TIBC, CREAT, ADDONUAPLUS, LDH #### [address] #### ANCA PROF #### [facility] , Estimated GFR ( Ysabel > [address] [facility] Comment on above: Result Comment: GFR estimated reference range: According to KDOQI guidelines, <60 ml/min/1.73m2 is sufficient to diagnose a patient with chronic kidney disease. Performed By: #### H APT, CRP, B12, LUIS ALFREDO, FE and TIBC, CREAT, ADDONUAPLUS, LDH #### [address] #### ANCA PROF #### [facility] , Estimated GFR (Non- Am [address] [facility] Comment on above: Performed By: #### H APT, CRP, B12, LUIS ALFREDO, FE and TIBC, CREAT, ADDONUAPLUS, LDH #### [address] #### ANCA PROF #### [facility] , Dipstick and Microscopicon 1 Appearance (U) Clear Normal Clear [facility] Comment on above: Order Comment: Name Collection Type:: Clean-Voided Midstream Performed By: #### H APT, CRP, B12, LUIS ALFREDO, FE and TIBC, CREAT, ADDONUAPLUS, LDH #### [facility] [address] [place] [address] #### ANCA PROF #### [facility] , Bacteria,Urine None Seen Normal None Seen [facility] Comment on above: Order Comment: Name Collection Type:: Clean-Voided Midstream Performed By: #### H APT, CRP, B12, ULIS ALFREDO, FE and TIBC, CREAT, ADDONUAPLUS, LDH #### [facility] [address] [place] [address] #### ANCA PROF #### [facility] , Bilirubin,Urine Negative Normal Negative [facility] Comment on above: Order Comment: Name Collection Type:: Clean-Voided Midstream Performed By: #### H APT, CRP, B12, LUIS ALFREDO, FE and TIBC, CREAT, ADDONUAPLUS, LDH #### [facility] [address] [place] [address] #### ANCA PROF #### [facility] , Color (U) Yellow Normal Yellow [facility] Comment on above: Order Comment: Name Collection Type:: Clean-Voided Midstream Performed By: #### H APT, CRP, B12, LUIS ALFREDO, FE and TIBC, CREAT, ADDONUAPLUS, LDH #### [facility] [address] [place] [address] #### ANCA PROF #### [facility] , Glucose Ql (U) Normal Normal Normal [facility] Comment on above: Order Comment: Name Collection Type:: Clean-Voided Midstream Performed By: #### H APT, CRP, B12, LUIS ALFREDO, FE and TIBC, CREAT, ADDONUAPLUS, LDH #### [facility] [address] [place] [address] [place] #### ANCA PROF #### [facility] , Hyaline Casts,Urine None Seen Normal 0-8 [facility] Comment on above: Order Comment: Name Collection Type:: Clean-Voided Midstream Result Comment: PERF ORMED BY: [place] [address] PATHOLOGIST ACCOUNTING RECONCILIATION CLERK OJSEY BOUCHER M.D. Performed By: #### H APT, CRP, B12, LUIS ALFREDO, FE and TIBC, CREAT, ADDONUAPLUS, LDH #### [address] #### ANCA PROF #### [facility] , Ketones Ql (U) Negative Normal Negative [facility] Comment on above: Order Comment: Name Collection Type:: Clean-Voided Midstream Performed By: #### H APT, CRP, B12, LUIS ALFREDO, FE and TIBC, CREAT, ADDONUAPLUS, LDH #### [address] #### ANCA PROF #### [facility] , Leukocyte esterase Test strip Ql (U) Negative Normal Negative [facility] Comment on above: Order Comment: Name Collection Type:: Clean-Voided Midstream Performed By: #### H APT, CRP, B12, LUIS ALFREDO, FE and TIBC, CREAT, ADDONUAPLUS, LDH #### [address] #### ANCA PROF #### [facility] , Nitrite,Urine Negative Normal Negative [facility] Comment on above: Order Comment: Name Collection Type:: Clean-Voided Midstream Performed By: #### H APT, CRP, B12, LUIS ALFREDO, FE and TIBC, CREAT, ADDONUAPLUS, LDH #### [facility] [address] [place] [address] [place] #### ANCA PROF #### [facility] , Occult Blood,Urine Negative Normal Negative [facility] Comment on above: Order Comment: Name Collection Type:: Clean-Voided Midstream Performed By: #### H APT, CRP, B12, LUIS ALFREDO, FE and TIBC, CREAT, ADDONUAPLUS, LDH #### [facility] [address] [place] [address] [place] #### ANCA PROF #### [facility] , pH (U) 6.0 [pH] Normal 5.0-9.[address] [facility] Comment on above: Order Comment: Name Collection Type:: Clean-Voided Midstream Performed By: #### H APT, CRP, B12, LUIS ALFREDO, FE and TIBC, CREAT, ADDONUAPLUS, LDH #### [facility] [address] [place] [address] #### ANCA PROF #### [facility] , Protein,Urine Negative Normal Negative [facility] Comment on above: Order Comment: Name Collection Type:: Clean-Voided Midstream Performed By: #### H APT, CRP, B12, LUIS ALFREDO, FE and TIBC, CREAT, ADDONUAPLUS, LDH #### [address] #### ANCA PROF #### [facility] , RBC,Urine None Seen Normal 0-[address] [facility] Comment on above: Order Comment: Name Collection Type:: Clean-Voided Midstream Performed By: #### H APT, CRP, B12, LUIS ALFREDO, FE and TIBC, CREAT, ADDONUAPLUS, LDH #### [facility] [address] [place] [address] #### ANCA PROF #### [facility] , Specificy [place],Urine 1.005 Normal 1.001-1.[address] [facility] Comment on above: Order Comment: Name Collection Type:: Clean-Voided Midstream Performed By: #### H APT, CRP, B12, LUIS ALFREDO, FE and TIBC, CREAT, ADDONUAPLUS, LDH #### [address] #### ANCA PROF #### [facility] , Squamous Epithelial Cell,Urine 0-1 Normal 0-[address] [facility] Comment on above: Order Comment: Name Collection Type:: Clean-Voided Midstream Performed By: #### H APT, CRP, B12, LUIS ALFREDO, FE and TIBC, CREAT, ADDONUAPLUS, LDH #### [address] [place] [address] [place] #### ANCA PROF #### [facility] , Urobilinogen,Urine Normal Normal Normal [facility] Comment on above: Order Comment: Name Collection Type:: Clean-Voided Midstream Performed By: #### H APT, CRP, B12, LUIS ALFREDO, FE and TIBC, CREAT, ADDONUAPLUS, LDH #### [facility] [address] [place] [address] #### ANCA PROF #### [facility] , WBC,Urine None Seen Normal 0-[address] [facility] Comment on above: Order Comment: Name Collection Type:: Clean-Voided Midstream Performed By: #### H APT, CRP, B12, LUIS ALFREDO, FE and TIBC, CREAT, ADDONUAPLUS, LDH #### [address] #### ANCA PROF #### [facility] , Direct [place] 06-16-2022 Polyspecific AHG Negative Normal [facility] Comment on above: Result Comment: PERF ORMED BY: [place] [address] PATHOLOGIST ACCOUNTING RECONCILIATION CLERK JOSEY BOUCHER M.D. Erythrocyte Sedimentation Ra lydia 06-16-2022 ESR (Bld) [Velocity] 79 mm/h High 0-29 [facility] Comment on above: Order Comment: BLOOD SMEAR Result Comment: PERF ORMED BY: [place] [address] PATHOLOGIST ACCOUNTING RECONCILIATION CLERK JOSEY BOUCHER M.D. Performed By: #### E SR, RETIC, CBC #### [address] Ferritinon 06-16-2022 Ferritin [Mass/Vol] 22.6 ng/mL Normal 11-306.8 [facility] Comment on above: Performed By: #### A DDONUAPLUS, CUU #### [address] Haptoglobinon 06-16-2022 Haptoglobin 274 mg/dL High 37-[address] [facility] Comment on above: Result Comment: PERF ORMED BY: [place] [address] PATHOLOGIST ACCOUNTING RECONCILIATION CLERK JOSEY BOUCHER M.D. Performed By: #### H APT, CRP, B12, LUIS ALFREDO, FE and TIBC, CREAT, ADDONUAPLUS, LDH #### [facility] [address] [place] [address] #### ANCA PROF #### [facility] , Iron and TIBC Profileon 10 % Iron Saturation 4.0 % Low 20-50 [facility] Comment on above: Performed By: #### H APT, CRP, B12, LUIS ALFREDO, FE and TIBC, CREAT, ADDONUAPLUS, LDH #### [facility] [address] [place] [address] #### ANCA PROF #### [facility] , Iron [Mass/Vol] 23 ug/dL Low 40-[address] [facility] Comment on above: Performed By: #### H APT, CRP, B12, LUIS ALFREDO, FE and TIBC, CREAT, ADDONUAPLUS, LDH #### [address] #### ANCA PROF #### [facility] , Total Iron Binding Capacity 461 ug/dL High 255-[address] [facility] Comment on above: Performed By: #### H APT, CRP, B12, LUIS ALFREDO, FE and TIBC, CREAT, ADDONUAPLUS, LDH #### [facility] [address] [place] [address] [place] #### ANCA PROF #### [facility] , Transferrin [Mass/Vol] 329 mg/dL Normal 180-[address] [facility] Comment on above: Performed By: #### H APT, CRP, B12, LUIS ALFREDO, FE and TIBC, CREAT, ADDONUAPLUS, LDH #### [address] [place] [address] [place] #### ANCA PROF #### [facility] , LDH Lactate Dehydrogenaseon 06-16-2022 LDH Lactate Dehydrogenase 181 U/L Normal 45-[address] [facility] Comment on above: Performed By: #### H APT, CRP, B12, LUIS ALFREDO, FE and TIBC, CREAT, ADDONUAPLUS, LDH #### [address] #### ANCA PROF #### [facility] , Reticulocyte Counton 022 Reticulocyte Number 0.054 10*6/uL Normal 0.024-0.084 [facility] Comment on above: Order Comment: BLOOD SMEAR Performed By: #### E SR, RETIC, CBC #### [address] Reticulocyte Percent 1.3 % Normal 0.5-1.5 [facility] Comment on above: Order Comment: BLOOD SMEAR Performed By: #### E SR, RETIC, CBC #### [address] Vitamin B12on 06-16-2022 Cobalamin (Vitamin B12) [Mass/Vol] 467 pg/mL Normal 180-[address] [facility] Comment on above: Result Comment: PERF ORMED BY: [place] [address] PATHOLOGIST ACCOUNTING RECONCILIATION CLERK JOSEY BOUCHER M.D. Performed By: #### A DDONUAPLUS, CUU #### [address] Albumin [Mass/volume] in Ser um or PlasmaOrdered By: Mark Avila on 05-12-2022 Albumin [Mass/Vol] 2.8 g/dL 3.2-5.5 [facility] Alkaline Phosphatase Isoenzy meon 05-12-2022 ALP [Catalytic activity/Vol] 136 U/L High 44-[address] [facility] Comment on above: Order Comment: Name Collection Type:: Clean-Voided Midstream Performed By: #### H APT, CRP, B12, LUIS ALFREDO, FE and TIBC, CREAT, ADDONUAPLUS, LDH #### [facility] [address] [place] [address] [place] #### ANCA PROF #### [facility] , Bone Fraction 5 % Low 14-[address] [facility] Comment on above: Order Comment: Name Collection Type:: Clean-Voided Midstream Performed By: #### H APT, CRP, B12, LUIS ALFREDO, FE and TIBC, CREAT, ADDONUAPLUS, LDH #### [facility] [address] [place] [address] [place] #### ANCA PROF #### [facility] , Intestinal Fraction 94 % High 0-18 [facility] Comment on above: Order Comment: Name Collection Type:: Clean-Voided Midstream Result Comment: Inte stinal alkaline phosphatase is seen normally in the serum of subjects who have B or O blood types, especially after a fatty meal. Pathologically the band may be present in perforation of the bowel, ulcerative disease of the intestine and faintly in liver cirrhosis. Acute infarction of the intestine will cause a release of intestinal ALP from the mucosa. Large erosive or ulcerative lesions of the stomach, duodenum or other small intestinal areas, or colon may result in an elevation of the serum ALP level. The small intestinal lesions associated with malabsorption are associated with an elevation of the serum intestinal ALP level only if there is an erosive or ulcerative mucosal lesion. Performed at: [address] [id number] Calenderer: Stone Tucker PhD, Phone: [phone] PERFORMED BY: [place] [address] PATHOLOGIST ACCOUNTING RECONCILIATION CLERK JOSEY BOUCHER M.D. Performed By: #### H APT, CRP, B12, LUIS ALFREDO, FE and TIBC, CREAT, ADDONUAPLUS, LDH #### [facility] [address] [place] [address] [place] #### ANCA PROF #### [facility] , Liver Fraction 1 % Low 18-[address] [facility] Comment on above: Order Comment: Name Collection Type:: Clean-Voided Midstream Performed By: #### H APT, CRP, B12, LUIS ALFREDO, FE and TIBC, CREAT, ADDONUAPLUS, LDH #### [facility] [address] [place] [address] #### ANCA PROF #### [facility] , Anti-dsDNA(DBL)Abon 05-12-20 22 Anti-dsDNA(DBL)Ab <1 Normal 0-9 [facility] Comment on above: Result Comment: Nega tive <5 Equivocal 5 - 9 Positive >9 Performed at: - [facility] [id number] Calenderer: Stone Tucker PhD, Phone: [phone] PERFORMED BY: [place] [address] PATHOLOGIST ACCOUNTING RECONCILIATION CLERK JOSEY BOUCHER M.D. Performed By: #### E SR, RETIC, CBC #### [facility] [address] [place] [address] Automated erythrocytes count in urine sediment (number/area)Ordered By: Mark Avila on 05-12-2022 RBC Auto (Urine sed) [#/Area] 3-4 [HPF] 0-[address] [facility] Automated leukocytes count i n urine sediment (number/area)Ordered By: Mark Avila on 05-12-2022 WBC Auto (Urine sed) [#/Area] 3-4 [HPF] 0-[address] [facility] Basophils Auto (Bld) [#/Vol] Ordered By: Mark Avila on 05-12-2022 Basophils (Bld) [#/Vol] 0.1 10*3/uL 0.0-0.[address] [facility] Basophils/100 WBC Auto (Bld) Ordered By: Mark Avila on 05-12-2022 Basophils/100 WBC (Bld) 1.5 % . [facility] Bilirubin Test strip Ql (U)O rdered By: Mark Avila on 05-12-2022 Bilirubin Ql (U) Negative Negative [facility] Blood hemoglobin measurement (mass/volume)Ordered By: Mark Avila on 05-12-2022 Hemoglobin (Bld) [Mass/Vol] 9.4 g/dL 11.8-15.[address] [facility] Blood leukocytes automated c ount (number/volume)Ordered By: Mark Avila on 05-12-2022 WBC (Bld) [#/Vol] 9.5 10*3/uL 4.5-11.0 [facility] C reactive protein [Mass/vol ume] in Serum or PlasmaOrdered By: Mark Avila on 05-12-2022 CRP [Mass/Vol] 7.1 mg/dL 0.0-1.[address] [facility] C-Reactive Proteinon 022 C-Reactive Protein 7.1 mg/dL High 0.0-1.0 [facility] Comment on above: Performed By: #### E SR, RETIC, CBC #### [facility] [address] [place] [address] Color Auto (U)Ordered By: Claudine Avila on 05-12-2022 Color (U) Yellow Yellow [facility] Complement C3on 05-12-2022 Complement C3 135 mg/dL Normal 82-[address] [facility] Comment on above: Order Comment: Name Collection Type:: Clean-Voided Midstream Result Comment: Perf ormed at: - [facility] [address] [id number] Calenderer: Stone Tucker PhD, Phone: [phone] Performed By: #### H APT, CRP, B12, LUIS ALFREDO, FE and TIBC, CREAT, ADDONUAPLUS, LDH #### [facility] [address] [place] [address] #### ANCA PROF #### [facility] , Complement C4on 05-12-2022 Complement C4 28 mg/dL Normal 12-[address] [facility] Comment on above: Order Comment: Name Collection Type:: Clean-Voided Midstream Performed By: #### H APT, CRP, B12, LUIS ALFREDO, FE and TIBC, CREAT, ADDONUAPLUS, LDH #### [facility] [address] #### ANCA PROF #### [facility] , Complement Total (CH50)on Complement Total (CH50) >60 Normal >41 [facility] Comment on above: Order Comment: Name Collection Type:: Clean-Voided Midstream Result Comment: Age Male Female 1 - 30 days Not Estab. Not Estab. 31 days - 6 months >32 >20 7 months - 17 years >39 >39 >17 years >41 >41 NOTE: The adult ( >17 years ) reference interval range is used to flag abnormals on this report. If the patient is 17 years old or younger, use the table above to determine out of range values. Performed at: [address] [id number] Calenderer: Stone Tucker PhD, Phone: [phone] Performed By: #### H APT, CRP, B12, LUIS ALFREDO, FE and TIBC, CREAT, ADDONUAPLUS, LDH #### [address] #### ANCA PROF #### [facility] , Complete Blood Count Auto Di ffon 05-12-2022 Basophils (Bld) [#/Vol] 0.1 10*3/uL Normal 0.0-0.[address] [facility] Comment on above: Performed By: #### A DDONUAPLUS, CUU #### [place] [address] [place] Basophils/100 WBC (Bld) 1.5 % Normal . [facility] Comment on above: Performed By: #### A DDONUAPLUS, CUU #### [place] [address] [place] Eosinophils (Bld) [#/Vol] 1.1 10*3/uL High 0.0-0.[address] [facility] Comment on above: Performed By: #### A DDONUAPLUS, CUU #### [place] [address] [place] Eosinophils/100 WBC (Bld) 11.9 % Normal . [facility] Comment on above: Performed By: #### A GUSTAVO CUU #### [address] Erythrocyte distribution width (RBC) [Ratio] 17.4 % High 11.9-15.[address] [facility] Comment on above: Performed By: #### A GUSTAVO CUU #### [address] Hematocrit (Bld) [Volume fraction] 29.1 % Low 34.0-46.[address] [facility] Comment on above: Performed By: #### A GUSTAVO CUU #### [address] Hemoglobin (Bld) [Mass/Vol] 9.4 g/dL Low 11.8-15.[address] [facility] Comment on above: Performed By: #### A GUSTAVO CUU #### [address] Lymphocytes (Bld) [#/Vol] 2.0 10*3/uL Normal 1.00-4.[address] [facility] Comment on above: Performed By: #### A GUSTAVO CUU #### [address] Lymphocytes/100 WBC (Bld) 21.6 % Normal . [facility] Comment on above: Performed By: #### A GUSTAVO CUU #### [address] MCH (RBC) [Entitic mass] 24.7 pg Normal 24.7-34.[address] [facility] Comment on above: Performed By: #### A GUSTAVO CUU #### [address] MCV (RBC) [Entitic vol] 76.9 fL Low 80-100 [facility] Comment on above: Performed By: #### A GUSTAVO CUU #### [address] [place] [address] [place] Mean Corpuscular HGB Conc 32.1 g/dL Normal 32.0-35.[address] [facility] Comment on above: Performed By: #### A GUSTAVO, CUU #### [facility] [address] [place] [address] [place] Monocytes (Bld) [#/Vol] 0.8 10*3/uL Normal 0.0-0.[address] [facility] Comment on above: Performed By: #### A ASADUAPLUS, CUU #### [facility] [address] [place] [address] [place] Monocytes/100 WBC (Bld) 8.6 % Normal . [facility] Comment on above: Performed By: #### A GUSTAVO, CUU #### [address] Neutrophils (Bld) [#/Vol] 5.3 10*3/uL Normal 1.8-7.[address] [facility] Comment on above: Performed By: #### A GUSTAVO, CUU #### [facility] [address] [place] [address] [place] Neutrophils/100 WBC (Bld) 56.4 % Normal . [facility] Comment on above: Performed By: #### A GUSTAVO, CUU #### [facility] [address] [place] [address] [place] Nucleated RBC/100 WBC (Bld) [Ratio] 0.1 % Normal 0-0.[address] [facility] Comment on above: Performed By: #### A ASADUAPLUS, CUU #### [facility] [address] [place] [address] [place] Platelet mean volume (Bld) [Entitic vol] 7.4 fL Normal 6.3-10.[address] [facility] Comment on above: Performed By: #### A DDLEVUAPLUS, CUU #### [facility] [address] [place] [address] [place] Platelets (Bld) [#/Vol] 656 10*3/uL High 150-[address] [facility] Comment on above: Performed By: #### A GUSTAVO CUU #### [address] RBC (Bld) [#/Vol] 3.78 10*6/uL Normal 3.60-5.00 [facility] Comment on above: Performed By: #### A GUSTAVO CUU #### [address] WBC (Bld) [#/Vol] 9.5 10*3/uL Normal 4.5-11.0 [facility] Comment on above: Performed By: #### A GUSTAVO CUU #### [address] Comprehensive Metabolic Pane dinora 05-12-2022 Albumin [Mass/Vol] 2.8 g/dL Low 3.2-5.5 [facility] Comment on above: Performed By: #### A GUSTAVO CUU #### [address] Albumin/Globulin [Mass ratio] 0.7 {ratio} Normal [facility] Comment on above: Performed By: #### A GUSTAVO CUU #### [address] ALP [Catalytic activity/Vol] 117 U/L High 32-[address] [facility] Comment on above: Performed By: #### A GUSTAVO CUU #### [address] ALT [Catalytic activity/Vol] 16 U/L Normal 10-[address] [facility] Comment on above: Performed By: #### A GUSTAVO, CUU #### [address] Anion gap [Moles/Vol] 16.1 mmol/L High 6.0-15.[address] [facility] Comment on above: Performed By: #### A GUSTAVO, CUU #### [address] [place] [address] [place] AST [Catalytic activity/Vol] 18 U/L Normal 10-[address] [facility] Comment on above: Performed By: #### A GUSTAVO, CUU #### [facility] [address] [place] [id number] [facility] Bilirubin [Mass/Vol] 0.4 mg/dL Normal 0.3-1.2 [facility] Comment on above: Performed By: #### A GUSTAVO, CUU #### [facility] [address] Calcium [Mass/Vol] 9.1 mg/dL Normal 8.2-10.2 [facility] Comment on above: Performed By: #### A GUSTAVO, CUU #### [address] Chloride [Moles/Vol] 94 mmol/L Low 95-114 [facility] Comment on above: Performed By: #### A GUSTAVO, CUU #### [address] CO2 [Moles/Vol] 21.3 mmol/L Low 22.0-30.0 [facility] Comment on above: Performed By: #### A GUSTAVO, CUU #### [place] [address] [place] Creatinine [Mass/Vol] 1.92 mg/dL High 0.44-1.03 [facility] Comment on above: Performed By: #### A GUSTAVO, CUU #### [address] Estimated GFR ( Ysabel [address] [facility] Comment on above: Result Comment: GFR estimated reference range: According to KDOQI guidelines, <60 ml/min/1.73m2 is sufficient to diagnose a patient with chronic kidney disease. Performed By: #### A DDLEVUAPLUS, CUU #### [place] [address] [place] Estimated GFR (Non- Am 26 [facility] Comment on above: Performed By: #### A DDONUAPLUS, CUU #### [facility] [address] Globulin (S) [Mass/Vol] 3.9 g/dL Normal [facility] Comment on above: Performed By: #### A DDONUAPLUS, CUU #### [facility] [address] Glucose [Mass/Vol] 85 mg/dL Normal 70-100 [facility] Comment on above: Result Comment: [facility] Glucose Reference Range is dependent on time and content of last meal. Glucose of more than 200 mg/dL in a nonstressed, ambulatory subject supports the diagnosis of Diabetes Mellitus. ADA recommended reference range Performed By: #### A DDONUAPLUS, CUU #### [facility] [address] Potassium [Moles/Vol] 5.4 mmol/L High 3.5-5.1 [facility] Comment on above: Performed By: #### A DDONUAPLUS, CUU #### [facility] [address] [place] [address] [place] Protein [Mass/Vol] 6.7 g/dL Normal 6.1-7.9 [facility] Comment on above: Performed By: #### A DDONUAPLUS, CUU #### [facility] [address] [place] [address] [place] Sodium [Moles/Vol] 126 mmol/L Low 136-146 [facility] Comment on above: Performed By: #### A DDONUAPLUS, CUU #### [facility] [address] [place] [address] [place] Urea nitrogen [Mass/Vol] 26 mg/dL High 9-[address] [facility] Comment on above: Performed By: #### A DDONUAPLUS, CUU #### [facility] [address] [place] [address] [place] Creatinine and Glomerular fi ltration rate.predicted panel (S/P/Bld)Ordered By: Mark Avila on 05-12-2022 Creatinine [Mass/Vol] 1.92 mg/dL 0.44-1.03 [facility] Dipstick and Microscopicon 0 05-12-2022 Appearance (U) Clear Normal Clear [facility] Comment on above: Order Comment: Name Collection Type:: Clean-Voided Midstream Performed By: #### A DDONUAPLUS, CUU #### [facility] [address] [place] [address] [place] Bacteria,Urine None Seen Normal None Seen [facility] Comment on above: Order Comment: Name Collection Type:: Clean-Voided Midstream Result Comment: PERF ORMED BY: [place] [address] PATHOLOGIST ACCOUNTING RECONCILIATION CLERK JOSEY BOUCHER M.D. Performed By: #### A DDONUAPLUS, CUU #### [facility] [address] [place] [address] [place] Bilirubin,Urine Negative Normal Negative [facility] Comment on above: Order Comment: Name Collection Type:: Clean-Voided Midstream Performed By: #### A DDONUAPLUS, CUU #### [facility] [address] [place] [address] [place] Color (U) Yellow Normal Yellow [facility] Comment on above: Order Comment: Name Collection Type:: Clean-Voided Midstream Performed By: #### A DDONUAPLUS, CUU #### [facility] [address] [place] [address] [place] Glucose Ql (U) Normal Normal Normal [facility] Comment on above: Order Comment: Name Collection Type:: Clean-Voided Midstream Performed By: #### A DDONUAPLUS, CUU #### [facility] [address] [place] [address] [place] Ketones Ql (U) Trace High Negative [facility] Comment on above: Order Comment: Name Collection Type:: Clean-Voided Midstream Performed By: #### A DDONUAPLUS, CUU #### [facility] [address] [place] [address] [place] Leukocyte esterase Test strip Ql (U) 1+ High Negative [facility] Comment on above: Order Comment: Name Collection Type:: Clean-Voided Midstream Performed By: #### A DDONUAPLUS, CUU #### [place] [address] [place] Nitrite,Urine Negative Normal Negative [facility] Comment on above: Order Comment: Name Collection Type:: Clean-Voided Midstream Performed By: #### A DDONUAPLUS, CUU #### [place] [address] [place] Occult Blood,Urine Negative Normal Negative [facility] Comment on above: Order Comment: Name Collection Type:: Clean-Voided Midstream Performed By: #### A DDONUAPLUS, CUU #### [address] pH (U) 5.5 [pH] Normal 5.0-9.[address] [facility] Comment on above: Order Comment: Name Collection Type:: Clean-Voided Midstream Performed By: #### A DDONUAPLUS, CUU #### [place] [address] [place] Protein,Urine Trace High Negative [facility] Comment on above: Order Comment: Name Collection Type:: Clean-Voided Midstream Performed By: #### A DDONUAPLUS, CUU #### [place] [address] [place] RBC,Urine 3-4 Normal 0-[address] [facility] Comment on above: Order Comment: Name Collection Type:: Clean-Voided Midstream Performed By: #### A DDONUAPLUS, CUU #### [place] [address] [place] Specificy [place],Urine 1.016 Normal 1.001-1.[address] [facility] Comment on above: Order Comment: Name Collection Type:: Clean-Voided Midstream Performed By: #### A DDONUAPLUS, CUU #### [place] [address] [place] Squamous Epithelial Cell,Urine 3-4 High 0-[address] [facility] Comment on above: Order Comment: Name Collection Type:: Clean-Voided Midstream Performed By: #### A DDONUAPLUS, CUU #### [facility] [address] [place] [address] Urobilinogen,Urine Normal Normal Normal [facility] Comment on above: Order Comment: Name Collection Type:: Clean-Voided Midstream Performed By: #### A DDONUAPLUS, CUU #### [facility] [address] [place] [address] WBC,Urine 3-4 Normal 0-[address] [facility] Comment on above: Order Comment: Name Collection Type:: Clean-Voided Midstream Performed By: #### A DDONUAPLUS, CUU #### [facility] [address] [place] [address] Eosinophils Auto (Bld) [#/Vo l]Ordered By: Mark Avila on 05-12-2022 Eosinophils (Bld) [#/Vol] 1.1 10*3/uL 0.0-0.[address] [facility] Eosinophils/100 WBC Auto (Bl d)Ordered By: Mark Avila on 05-12-2022 Eosinophils/100 WBC (Bld) 11.9 % . [facility] Erythrocyte Sedimentation Ra lydia 05-12-2022 ESR (Bld) [Velocity] 120 mm/h [facility] Comment on above: Result Comment: PERF ORMED BY: [place] [address] PATHOLOGIST ACCOUNTING RECONCILIATION CLERK JOSEY BOUCHER M.D. Performed By: #### A DDONUAPLUS, CUU #### [facility] [address] [place] [address] Erythrocyte distribution wid th Auto (RBC) [Ratio]Ordered By: Mark Avila on 05-12-2022 Erythrocyte distribution width (RBC) [Ratio] 17.4 % 11.9-15.[address] [facility] Erythrocyte sedimentation ra te by Photometric methodOrdered By: Mark Avila on 05-12-2022 ESR Photometric method (Bld) [Velocity] 120 mm/hr [facility] Estimated glomerular filtrat ion rate (GFR) non- AmericanOrdered By: Mark Avila on 05-12-2022 GFR/1.73 sq M.predicted among non-blacks MDRD (S/P/Bld) [Vol rate/Area] 26 mL/Min [facility] Gamma Glutamyl Transpeptidas lai 05-12-2022 Amylase [Catalytic activity/Vol] 16 U/L Normal [facility] Comment on above: Performed By: #### E SR, RETIC, CBC #### [facility] [address] Globulin Calc (S) [Mass/Vol] Ordered By: Mark Avila on 05-12-2022 Globulin (S) [Mass/Vol] 3.9 g/dL [facility] Hematocrit Auto (Bld) [Volum e fraction]Ordered By: Mark Avila on 05-12-2022 Hematocrit (Bld) [Volume fraction] 29.1 % 34.0-46.[address] [facility] Ketones Auto test strip (U) [Mass/Vol]Ordered By: Mark Avila on 05-12-2022 Ketones (U) [Mass/Vol] Trace Negative [facility] - Chemistry and C hemistry - challengeOrdered By: Mark Avila on 05-12-2022 Amylase [Catalytic activity/Vol] 16 U/L [facility] Laboratory - Hematology and Cell countsOrdered By: Mark Avila on 05-12-2022 Nucleated RBC/100 WBC (Bld) [Ratio] 0.1 % 0-0.[address] [facility] Laboratory - UrinalysisOrder ed By: Mark Avila on 05-12-2022 Hyaline casts LM Ql (Urine sed) N/A [facility] Lymphocytes Auto (Bld) [#/Vo l]Ordered By: Mark Avila on 05-12-2022 Lymphocytes (Bld) [#/Vol] 2.0 10*3/uL 1.00-4.[address] [facility] Lymphocytes/100 WBC Auto (Bl d)Ordered By: Mark Avila on 05-12-2022 Lymphocytes/100 WBC (Bld) 21.6 % . [facility] MCH Auto (RBC) [Entitic mass ]Ordered By: Mark Avila on 05-12-2022 MCH (RBC) [Entitic mass] 24.7 pg 24.7-34.[address] [facility] MCHC Auto (RBC) [Mass/Vol]Or dered By: Mark Avila on 05-12-2022 MCHC (RBC) [Mass/Vol] 32.1 g/dL 32.0-35.0 [facility] MCV Auto (RBC) [Entitic vol] Ordered By: Mark Avila on 05-12-2022 MCV (RBC) [Entitic vol] 76.9 fL 80-100 [facility] Monocytes Auto (Bld) [#/Vol] Ordered By: Mark Avila on 05-12-2022 Monocytes (Bld) [#/Vol] 0.8 10*3/uL 0.0-0.[address] [facility] Monocytes/100 WBC Auto (Bld) Ordered By: Mark Avila on 05-12-2022 Monocytes/100 WBC (Bld) 8.6 % . [facility] Neutrophils Auto (Bld) [#/Vo l]Ordered By: Mark Avila on 05-12-2022 Neutrophils (Bld) [#/Vol] 5.3 10*3/uL 1.8-7.[address] [facility] Neutrophils/100 WBC Auto (Bl d)Ordered By: Mark Avila on 05-12-2022 Neutrophils/100 WBC (Bld) 56.4 % . [facility] Nitrite Test strip Ql (U)Ord ered By: Mark Avila on 05-12-2022 Nitrite Ql (U) Negative Negative [facility] No Panel InformationOrdered By: Mark Avila on 05-12-2022 Estimated GFR () 31 mL/Min [facility] Comment on above: GFR estimated refere nce range: According to KDOQI guidelines, <60 ml/min/1.73m2 is sufficient to diagnose a patient with chronic kidney disease. Pharmacy Creatinine Clearance (Chem N/A [facility] Total Complement (CH50) >60 U/mL >41 [facility] Comment on above: Age Male Female 1 - 30 days Not Estab. Not Estab. 31 days - 6 months >32 >20 7 months - 17 years >39 >39 >17 years >41 >41 NOTE: The adult ( >17 years ) reference interval range is used to flag abnormals on this report. If the patient is 17 years old or younger, use the table above to determine out of range values. Performed at: - [facility] [id number] Calenderer: Stone Tucker PhD, Phone: [phone] Parathyroid Hormone [place] 05-12-2022 Parathyroid Hormone Intact 30.3 pg/mL Normal 12- [facility] Comment on above: Result Comment: PERF ORMED BY: [place] [address] PATHOLOGIST ACCOUNTING RECONCILIATION CLERK JOSEY BOUCHER M.D. Performed By: #### E SR, RETIC, CBC #### [address] Platelet mean volume Auto (B ld) [Entitic vol]Ordered By: Mark Avila on 05-12-2022 Platelet mean volume (Bld) [Entitic vol] 7.4 fL 6.3-10.[address] [facility] Platelets Auto (Bld) [#/Vol] Ordered By: Mark Avila on 05-12-2022 Platelets (Bld) [#/Vol] 656 10*3/uL 150-[address] [facility] Protein Auto test strip (U) [Mass/Vol]Ordered By: Mark Avila on 05-12-2022 Protein (U) [Mass/Vol] Trace mg/dL Negative [facility] Protein [Mass/volume] in Ser um or PlasmaOrdered By: Mark Avila on 05-12-2022 Protein [Mass/Vol] 6.7 g/dL 6.1-7.9 [facility] RBC Auto (Bld) [#/Vol]Ordere d By: Mark Avila on 05-12-2022 RBC (Bld) [#/Vol] 3.78 10*6/uL 3.60-5.00 [facility] SS-A/Ro Sjogrens Antibodyon 05-12-2022 SS-A/Ro Sjogrens Antibody <0.2 Normal 0.0-0.[address] [facility] Comment on above: Performed By: #### E SR, RETIC, CBC #### [facility] [address] [place] [id number] [facility] Serum DNA double strand anti body assay (units/volume)Ordered By: Mark Avila on 05-12-2022 DNA double strand Ab Qn (S) [IU]/mL 0-[address] [facility] Comment on above: Negative <5 Equivocal 5 - 9 Positive >9 Performed at: [facility] [id number] Calenderer: Stone Tucker PhD, Phone: [phone] Serum Sjogrens syndrome-A ex tractable nuclear antibody assay (units/volume)Ordered By: Mark Avila on 05-12-2022 Sjogrens syndrome-A extractable nuclear Ab Qn (S) <0.2 AI 0.0-0.[address] [facility] Serum or plasma alanine rajan otransferase measurement without P-5'-P (enzymatic activiOrdered By: Mark Avila on 05-12-2022 ALT No additional P-5'-P [Catalytic activity/Vol] 16 U/L 10-[address] [facility] Serum or plasma albumin/glob ulin mass ratioOrdered By: Mark Avila on 05-12-2022 Albumin/Globulin [Mass ratio] 0.7 {ratio} [facility] Serum or plasma alkaline kim sphatase measurement (enzymatic activity/volume)Ordered By: Mark Avila on 05-12-2022 ALP [Catalytic activity/Vol] 117 U/L 32-[address] [facility] Serum or plasma anion gap de terminationOrdered By: Mark Avila on 05-12-2022 Anion gap [Moles/Vol] 16.1 mmol/L 6.0-15.[address] [facility] Serum or plasma aspartate am inotransferase measurement (enzymatic activity/volume)Ordered By: Mark Avila on 05-12-2022 AST [Catalytic activity/Vol] 18 U/L 10-[address] [facility] Serum or plasma calcium ervin urement (mass/volume)Ordered By: Mark Avila on 05-12-2022 Calcium [Mass/Vol] 9.1 mg/dL 8.2-10.2 [facility] Serum or plasma chloride zhou surement (moles/volume)Ordered By: Mark Avila on 05-12-2022 Chloride [Moles/Vol] 94 mmol/L 95-114 [facility] Serum or plasma complement C 3 measurement (mass/volume)Ordered By: Mark Avila on 05-12-2022 Complement C3 [Mass/Vol] 135 mg/dL 82-[address] [facility] Comment on above: Performed at: [address] [id number] Calenderer: Stone Tucker PhD, Phone: [phone] Serum or plasma complement C 4 measurement (mass/volume)Ordered By: Mark Avila on 05-12-2022 Complement C4 [Mass/Vol] 28 mg/dL 12-[address] [facility] Serum or plasma glucose ervin urement (mass/volume)Ordered By: Mark Avila on 05-12-2022 Glucose [Mass/Vol] 85 mg/dL 70-100 [facility] Comment on above: ADA recommended refe rence range Random Glucose Reference Range is dependent on time and content of last meal. Glucose of more than 200 mg/dL in a nonstressed, ambulatory subject supports the diagnosis of Diabetes Mellitus. Serum or plasma intact parat hyroid hormone measurement (mass/volume)Ordered By: Mark Avila on 05-12-2022 Parathyrin.intact [Mass/Vol] 30.3 pg/mL 12-[address] [facility] Serum or plasma potassium me asurement (moles/volume)Ordered By: Mark Avila on 05-12-2022 Potassium [Moles/Vol] 5.4 mmol/L 3.5-5.1 [facility] Serum or plasma sodium measu rement (moles/volume)Ordered By: Mark Avila on 05-12-2022 Sodium [Moles/Vol] 126 mmol/L 136-146 [facility] Serum or plasma total biliru bin measurement (mass/volume)Ordered By: Mark Avila on 05-12-2022 Bilirubin [Mass/Vol] 0.4 mg/dL 0.3-1.2 [facility] Serum or plasma total carbon dioxide measurement (moles/volume)Ordered By: Mark Avila on 05-12-2022 CO2 [Moles/Vol] 21.3 mmol/L 22.0-30.0 [facility] Serum or plasma urea nitroge n measurement (mass/volume)Ordered By: Mark Avila on 05-12-2022 Urea nitrogen [Mass/Vol] 26 mg/dL 9-[address] [facility] Serum or plasma uric acid me asurement (mass/volume)Ordered By: Mark Avila on 05-12-2022 Urate [Mass/Vol] 6.1 mg/dL 2.6-7.2 [facility] Specific gravity Auto test s trip (U) [Rel density]Ordered By: Mark Avila on 05-12-2022 Specific gravity (U) [Rel density] 1.016 1.001-1.[address] [facility] Squamous epithelial cells de tection in urine sediment by light microscopyOrdered By: Mark Avila on 05-12-2022 Epithelial cells.squamous LM Ql (Urine sed) 3-4 [HPF] 0-[address] [facility] TSH DL <= 0.005 mIU/L QnOrde red By: Mark Avila on 05-12-2022 TSH Qn 2.66 m[IU]/L 0.45-5.[address] [facility] Thyroid Stimulating Hormoneo n 05-12-2022 TSH Qn 2.66 m[IU]/L Normal 0.45-5.[address] [facility] Comment on above: Performed By: #### E SR, RETIC, CBC #### [facility] [address] [place] [id number] [place] Uric Acidon 05-12-2022 Urate [Mass/Vol] 6.1 mg/dL Normal 2.6-7.2 [facility] Comment on above: Performed By: #### E SR, RETIC, CBC #### [facility] [address] [place] [id number] [place] Urine bacteria detection by automated methodOrdered By: Mark Avila on 05-12-2022 Bacteria Auto Ql (U) None seen None Seen [facility] Urine clarity by refractomet ry automatedOrdered By: Mark Avila on 05-12-2022 Clarity Refractometry automated (U) Clear Clear [facility] Urine glucose measurement by automated test strip (mass/volume)Ordered By: Mark Avila on 05-12-2022 Glucose Auto test strip (U) [Mass/Vol] Normal mg/dL Normal [facility] Urine hemoglobin detection b y automated test stripOrdered By: Mark Avila on 05-12-2022 Hemoglobin Auto test strip Ql (U) Negative Negative [facility] Urine leukocyte esterase det ection by automated test stripOrdered By: Mark Avila on 05-12-2022 Leukocyte esterase Auto test strip Ql (U) 1+ Negative [facility] Urobilinogen Auto test strip (U) [Mass/Vol]Ordered By: Mark Avila on 05-12-2022 Urobilinogen (U) [Mass/Vol] Normal mg/dL Normal [facility] XR foot BI 2Von 05-12-2022 XR foot BI 2V [facility] [address] XRay Report Signed Patient: Corie Courtney MR#: [id number] : 1950 Acct:[id number] Age/Sex: 71 / F ADM Date: 05/12/22 Loc: ICXD Room: Type: [facility] Attending Dr: Mark Avila MD Copies to: Mark Avila MD Ordering Provider: Mark Avila MD Date of Service: 05/12/22 XR/XR foot BI 2V: pain ([id number]) XR/XR ankle BI 2V: pain 2views bothankle COMPARISON:None HISTORY: Bilateral foot and ankle swelling Diffuse soft tissue prominence identified. No subcutaneous air. No radiodense or body. Intact bony structures. Diffuse osteopenia. Mild degeneration. XR/XR ankle BI 2V IMPRESSION: Diffuse soft tissue swelling. Diffuse osteopenia. Mild degeneration. 2 views of both feet. Comparison LEFT foot to 07/21/20 Diffuse osteopenia. No fracture. Adequate bony alignment. LEFT 1st metatarsal plate-screw fixation for healed LEFT 1st metatarsal fracture.. No hardware failure. Advanced RIGHT 1st metatarsal phalangeal degeneration. Moderate mild LEFT 1st metatarsophalangeal degeneration. IMPRESSION: Diffuse osteopenia and degenerative change. Diffuse soft tissue swelling. No hardware complication. Impression dictated by: Akil Osman M.D.05/12/2022 3:32 PM Dictation Location: [place] [address] Transcribed By: [facility] 05/12/22 153 Dictated By: Akil Osman DO 05/12/22 1527 Signed By: 05/12/22 [address] [facility] pH Auto test strip (U)Ordere d By: Mark Avila on 05-12-2022 pH (U) 5.5 [pH] 5.0-9.[address] [facility] US venous duplex LE BIon US venous duplex LE BI [facility] [place] [address] Ultrasound Report Signed Patient: Corie Courtney MR#: [id number] : 1950 Acct:[id number] Age/Sex: 71 / F ADM Date: 04/16/22 Loc: Room: [address] [place] [address] Type: DIS INOo Attending Dr: Parvin Batres MD Ordering Provider: Layo Sheridan APRN Date of Service: 04/16/22 US/US venous duplex LE BI: LOWER EXT. INJURY/PROBLEM Copies to: MD Layo Block APRN BILATERAL LOWER EXTREMITY VENOUS DUPLEX INDICATION: Bilateral lower extremity edema and ankle swelling PROCEDURE: Color-flow duplex scanning is used to interrogate the deep venous system of the right and left lower extremities. The common femoral vein, femoral vein and popliteal vein show good compressibility with normal proximal and distal augmentation. The calf veins are compressible. US/US venous duplex LE BI IMPRESSION: NO EVIDENCE FOR DEEP VEIN THROMBOSIS OR PROXIMAL SUPERFICIAL THROMBOPHLEBITIS IN THE RIGHT OR LEFT LOWER EXTREMITY. There is a fluid collection present in the left popliteal fossa measuring 3.7 x 1.0 x 1.3 cm. This may represent a Ness's cyst. Impression dictated by: Pb Yi MD04/19/2022 11:38 AM Dictation Location: [facility] Tech: Cristine Cody Transcribed By: SEBAS 04/19/22 1138 Dictated By: Pb Yi MD 04/19/22 113 Signed By: 04/19/22 113 [facility] Urine culture routineOrdered By: Parvin Batres on 04-19-2022 Bacteria identified Cx Nom (U) Escherichia coli [facility] Basic Metabolic Panelon Calcium [Mass/Vol] 9.3 mg/dL Normal 8.2-10.2 [facility] Comment on above: Performed By: #### E SR, RETIC, CBC #### [facility] [address] Chloride [Moles/Vol] 92 mmol/L Low 95-114 [facility] Comment on above: Performed By: #### E SR, RETIC, CBC #### [facility] [address] CO2 [Moles/Vol] 25.8 mmol/L Normal 22.0-30.0 [facility] Comment on above: Performed By: #### E SR, RETIC, CBC #### [facility] [address] Creatinine [Mass/Vol] 0.82 mg/dL Normal 0.44-1.03 [facility] Comment on above: Performed By: #### E SR, RETIC, CBC #### [facility] [address] [place] [address] [place] Creatinine Clr Calc Pharmacy 46.00 [facility] Comment on above: Performed By: #### E SR, RETIC, CBC #### [facility] [address] [place] [address] [place] Estimated GFR ( Ysabel > 60 [facility] Comment on above: Result Comment: GFR estimated reference range: According to KDOQI guidelines, <60 ml/min/1.73m2 is sufficient to diagnose a patient with chronic kidney disease. Performed By: #### E SR, RETIC, CBC #### [facility] [address] [place] [address] [place] Estimated GFR (Non- Am > [address] [facility] Comment on above: Performed By: #### E SR, RETIC, CBC #### [facility] [address] Glucose [Mass/Vol] 92 mg/dL Normal 70-100 [facility] Comment on above: Result Comment: [place] Glucose Reference Range is dependent on time and content of last meal. Glucose of more than 200 mg/dL in a nonstressed, ambulatory subject supports the diagnosis of Diabetes Mellitus. ADA recommended reference range Performed By: #### E SR, RETIC, CBC #### [facility] [address] Potassium [Moles/Vol] 4.2 mmol/L Normal 3.5-5.1 [facility] Comment on above: Performed By: #### E SR, RETIC, CBC #### [facility] [address] Sodium [Moles/Vol] 129 mmol/L Low 136-146 [facility] Comment on above: Performed By: #### E SR, RETIC, CBC #### [facility] [address] Urea nitrogen [Mass/Vol] 15 mg/dL Normal 9-[address] [facility] Comment on above: Performed By: #### E SR, RETIC, CBC #### [facility] [address] [place] [id number] [place] Basophils Auto (Bld) [#/Vol] Ordered By: Josué Alvarez on 04-18-2022 Basophils (Bld) [#/Vol] 0.1 10*3/uL 0.0-0.[address] [facility] Basophils/100 WBC Auto (Bld) Ordered By: Josué Alvarez on 04-18-2022 Basophils/100 WBC (Bld) 1.0 % . [facility] Blood hemoglobin measurement (mass/volume)Ordered By: Josué Alvarez on 04-18-2022 Hemoglobin (Bld) [Mass/Vol] 9.2 g/dL 11.8-15.[address] [facility] Blood leukocytes automated c ount (number/volume)Ordered By: Josué Alvarez on 04-18-2022 WBC (Bld) [#/Vol] 8.1 10*3/uL 4.5-11.0 [facility] Complete Blood Count Auto Di ffon 04-18-2022 Basophils (Bld) [#/Vol] 0.1 10*3/uL Normal 0.0-0.[address] [facility] Comment on above: Result Comment: PERF ORMED BY: [place] [address] PATHOLOGIST ACCOUNTING RECONCILIATION CLERK JOSEY BOUCHER M.D. Performed By: #### E SR, RETIC, CBC #### [address] Basophils/100 WBC (Bld) 1.0 % Normal . [facility] Comment on above: Performed By: #### E SR, RETIC, CBC #### [address] Eosinophils (Bld) [#/Vol] 0.3 10*3/uL Normal 0.0-0.[address] [facility] Comment on above: Performed By: #### E SR, RETIC, CBC #### [address] Eosinophils/100 WBC (Bld) 3.3 % Normal . [facility] Comment on above: Performed By: #### E SR, RETIC, CBC #### [facility] [address] [place] [address] Erythrocyte distribution width (RBC) [Ratio] 16.4 % High 11.9-15.[address] [facility] Comment on above: Performed By: #### E SR, RETIC, CBC #### [address] Hematocrit (Bld) [Volume fraction] 27.5 % Low 34.0-46.[address] [facility] Comment on above: Performed By: #### E SR, RETIC, CBC #### [address] Hemoglobin (Bld) [Mass/Vol] 9.2 g/dL Low 11.8-15.[address] [facility] Comment on above: Performed By: #### E SR, RETIC, CBC #### [address] Lymphocytes (Bld) [#/Vol] 1.8 10*3/uL Normal 1.00-4.[address] [facility] Comment on above: Performed By: #### E SR, RETIC, CBC #### [address] Lymphocytes/100 WBC (Bld) 22.3 % Normal . [facility] Comment on above: Performed By: #### E SR, RETIC, CBC #### [address] MCH (RBC) [Entitic mass] 25.4 pg Normal 24.7-34.[address] [facility] Comment on above: Performed By: #### E SR, RETIC, CBC #### [address] MCV (RBC) [Entitic vol] 75.8 fL Low 80-100 [facility] Comment on above: Performed By: #### E SR, RETIC, CBC #### [address] Mean Corpuscular HGB Conc 33.5 g/dL Normal 32.0-35.[address] [facility] Comment on above: Performed By: #### E SR, RETIC, CBC #### [address] Monocytes (Bld) [#/Vol] 0.7 10*3/uL Normal 0.0-0.[address] [facility] Comment on above: Performed By: #### E SR, RETIC, CBC #### [place] [address] [place] Monocytes/100 WBC (Bld) 8.3 % Normal . [facility] Comment on above: Performed By: #### E SR, RETIC, CBC #### [place] [address] [place] Neutrophils (Bld) [#/Vol] 5.3 10*3/uL Normal 1.8-7.[address] [facility] Comment on above: Performed By: #### E SR, RETIC, CBC #### [facility] [address] Neutrophils/100 WBC (Bld) 65.1 % Normal . [facility] Comment on above: Performed By: #### E SR, RETIC, CBC #### [facility] [address] [place] [address] [place] Nucleated RBC/100 WBC (Bld) [Ratio] 0.1 % Normal 0-0.[address] [facility] Comment on above: Performed By: #### E SR, RETIC, CBC #### [facility] [address] Platelet mean volume (Bld) [Entitic vol] 6.9 fL Normal 6.3-10.[address] [facility] Comment on above: Performed By: #### E SR, RETIC, CBC #### [facility] [address] Platelets (Bld) [#/Vol] 714 10*3/uL High 150-[address] [facility] Comment on above: Performed By: #### E SR, RETIC, CBC #### [address] RBC (Bld) [#/Vol] 3.63 10*6/uL Normal 3.60-5.00 [facility] Comment on above: Performed By: #### E SR, RETIC, CBC #### [facility] [address] [place] [address] [place] WBC (Bld) [#/Vol] 8.1 10*3/uL Normal 4.5-11.0 [facility] Comment on above: Performed By: #### E SR, RETIC, CBC #### [place] [address] [place] Creatinine and Glomerular fi ltration rate.predicted panel (S/P/Bld)Ordered By: Josué Alvarez on 04-18-2022 Creatinine [Mass/Vol] 0.82 mg/dL 0.44-1.03 [facility] Eosinophils Auto (Bld) [#/Vo l]Ordered By: Josué Alvarez on 04-18-2022 Eosinophils (Bld) [#/Vol] 0.3 10*3/uL 0.0-0.45 [facility] [facility] Eosinophils/100 WBC Auto (Bl d)Ordered By: Josué Alvarez on 04-18-2022 Eosinophils/100 WBC (Bld) 3.3 % . [facility] Erythrocyte distribution wid th Auto (RBC) [Ratio]Ordered By: Josué Alvarez on 04-18-2022 Erythrocyte distribution width (RBC) [Ratio] 16.4 % 11.9-15.[address] [facility] Estimated glomerular filtrat ion rate (GFR) non- AmericanOrdered By: Josué Alvarez on 04-18-2022 GFR/1.73 sq M.predicted among non-blacks MDRD (S/P/Bld) [Vol rate/Area] > 60 mL/Min [facility] Hematocrit Auto (Bld) [Volum e fraction]Ordered By: Josué Alvarez on 04-18-2022 Hematocrit (Bld) [Volume fraction] 27.5 % 34.0-46.[address] [facility] Laboratory - Chemistry and C hemistry - challengeOrdered By: Josué Alvarez on 04-18-2022 Magnesium [Mass/Vol] 1.9 mg/dL 1.6-2.6 [facility] Laboratory - Hematology and Cell countsOrdered By: Josué Alvarez on 04-18-2022 Nucleated RBC/100 WBC (Bld) [Ratio] 0.1 % 0-0.[address] [facility] Lymphocytes Auto (Bld) [#/Vo l]Ordered By: Josué Alvarez on 04-18-2022 Lymphocytes (Bld) [#/Vol] 1.8 10*3/uL 1.00-4.[address] [facility] Lymphocytes/100 WBC Auto (Bl d)Ordered By: Josué Alvarez on 04-18-2022 Lymphocytes/100 WBC (Bld) 22.3 % . [facility] MCH Auto (RBC) [Entitic mass ]Ordered By: Josué Alvarez on 04-18-2022 MCH (RBC) [Entitic mass] 25.4 pg 24.7-34.[address] [facility] MCHC Auto (RBC) [Mass/Vol]Or dered By: Josué Alvarez on 04-18-2022 MCHC (RBC) [Mass/Vol] 33.5 g/dL 32.0-35.0 [facility]ir [facility] MCV Auto (RBC) [Entitic vol] Ordered By: Josué Alvarez on 04-18-2022 MCV (RBC) [Entitic vol] 75.8 fL 80-100 [facility] Magnesiumon 04-18-2022 Magnesium [Mass/Vol] 1.9 mg/dL Normal 1.6-2.6 [facility] Comment on above: Result Comment: PERF ORMED BY: [facility] [address] [place] [address] PATHOLOGIST ACCOUNTING RECONCILIATION CLERK JOSEY BOUCHER M.D. Performed By: #### E SR, RETIC, CBC #### [facility] [address] Monocytes Auto (Bld) [#/Vol] Ordered By: Josué Alvarez on 04-18-2022 Monocytes (Bld) [#/Vol] 0.7 10*3/uL 0.0-0.[address] [facility] Monocytes/100 WBC Auto (Bld) Ordered By: Josué Alvarez on 04-18-2022 Monocytes/100 WBC (Bld) 8.3 % . [facility] Neutrophils Auto (Bld) [#/Vo l]Ordered By: Josué Alvarez on 04-18-2022 Neutrophils (Bld) [#/Vol] 5.3 10*3/uL 1.8-7.[address] [facility] Neutrophils/100 WBC Auto (Bl d)Ordered By: Josué Alvarez on 04-18-2022 Neutrophils/100 WBC (Bld) 65.1 % . [facility] No Panel InformationOrdered By: Josué Alvarez on 04-18-2022 Estimated GFR () > 60 mL/Min [facility] Comment on above: GFR estimated refere nce range: According to KDOQI guidelines, <60 ml/min/1.73m2 is sufficient to diagnose a patient with chronic kidney disease. Pharmacy Creatinine Clearance (Chem 46.[address] [facility] Platelet mean volume Auto (B ld) [Entitic vol]Ordered By: Josué Alvarez on 04-18-2022 Platelet mean volume (Bld) [Entitic vol] 6.9 fL 6.3-10.[address] [facility] Platelets Auto (Bld) [#/Vol] Ordered By: Josué Alvarez on 04-18-2022 Platelets (Bld) [#/Vol] 714 10*3/uL 150-[address] [facility] RBC Auto (Bld) [#/Vol]Ordere d By: Josué Alvarez on 04-18-2022 RBC (Bld) [#/Vol] 3.63 10*6/uL 3.60-5.00 [facility] Serum or plasma calcium ervin urement (mass/volume)Ordered By: Josué Alvarez on 04-18-2022 Calcium [Mass/Vol] 9.3 mg/dL 8.2-10.2 [facility] Serum or plasma chloride zhou surement (moles/volume)Ordered By: Josué Alvarez on 04-18-2022 Chloride [Moles/Vol] 92 mmol/L 95-114 [facility] Serum or plasma glucose ervin urement (mass/volume)Ordered By: Josué Alvarez on 04-18-2022 Glucose [Mass/Vol] 92 mg/dL 70-100 [facility] Comment on above: ADA recommended refe rence range Random Glucose Reference Range is dependent on time and content of last meal. Glucose of more than 200 mg/dL in a nonstressed, ambulatory subject supports the diagnosis of Diabetes Mellitus. Serum or plasma potassium me asurement (moles/volume)Ordered By: Josué Alvarez on 04-18-2022 Potassium [Moles/Vol] 4.2 mmol/L 3.5-5.1 [facility] Serum or plasma sodium measu rement (moles/volume)Ordered By: Josué Alvarez on 04-18-2022 Sodium [Moles/Vol] 129 mmol/L 136-146 [facility] Serum or plasma total carbon dioxide measurement (moles/volume)Ordered By: Josué Alvarez on 04-18-2022 CO2 [Moles/Vol] 25.8 mmol/L 22.0-30.0 [facility] Serum or plasma urea nitroge n measurement (mass/volume)Ordered By: Josué Alvarez on 04-18-2022 Urea nitrogen [Mass/Vol] 15 mg/dL 9- [facility] A1C with Estimated Average [employer] caruso 04-17-2022 Glucose [Mass/Vol] 131 mg/dL Normal [facility] Comment on above: Result Comment: PERF ORMED BY: [place] [address] PATHOLOGIST ACCOUNTING RECONCILIATION CLERK JOSEY BOUCHER M.D. Performed By: #### E SR, RETIC, CBC #### [facility] [address] HbA1c (Bld) [Mass fraction] 6.2 % High 4.3-5.[address] [facility] Comment on above: Result Comment: Incr eased risk for diabetes: 5.7 - 6.4 diabetes: >6.4 glycemic control for adults with diabetes: <7.0 Performed By: #### E SR, RETIC, CBC #### [facility] [address] Automated epithelial cells c ount in urine sediment (number/area)Ordered By: Parvin Batres on 04-17-2022 Epithelial cells Auto (Urine sed) [#/Area] 10-19 [HPF] 0-[address] [facility] Automated erythrocytes count in urine sediment (number/area)Ordered By: Parvin Batres on 04-17-2022 RBC Auto (Urine sed) [#/Area] 5-9 [HPF] 0-[address] [facility] Automated leukocytes count i n urine sediment (number/area)Ordered By: Parvin Batres on 04-17-2022 WBC Auto (Urine sed) [#/Area] Innumerable [HPF] 0-[address] [facility] Basic Metabolic Panelon Calcium [Mass/Vol] 9.4 mg/dL Normal 8.2-10.2 [facility] Comment on above: Performed By: #### E SR, RETIC, CBC #### [facility] [address] Chloride [Moles/Vol] 97 mmol/L Normal 95-114 [facility] Comment on above: Performed By: #### E SR, RETIC, CBC #### [facility] [address] CO2 [Moles/Vol] 26.3 mmol/L Normal 22.0-30.0 [facility] Comment on above: Performed By: #### E SR, RETIC, CBC #### [address] Creatinine [Mass/Vol] 0.74 mg/dL Normal 0.44-1.03 [facility] Comment on above: Performed By: #### E SR, RETIC, CBC #### [place] [address] [place] Creatinine Clr Calc Pharmacy 47.67 [facility] Comment on above: Performed By: #### E SR, RETIC, CBC #### [address] Estimated GFR ( Ysabel > 60 [facility] Comment on above: Result Comment: GFR estimated reference range: According to KDOQI guidelines, <60 ml/min/1.73m2 is sufficient to diagnose a patient with chronic kidney disease. Performed By: #### E SR, RETIC, CBC #### [address] Estimated GFR (Non- Am > 60 [facility] Comment on above: Performed By: #### E SR, RETIC, CBC #### [address] Glucose [Mass/Vol] 89 mg/dL Normal 70-100 [facility] Comment on above: Result Comment: [place] om Glucose Reference Range is dependent on time and content of last meal. Glucose of more than 200 mg/dL in a nonstressed, ambulatory subject supports the diagnosis of Diabetes Mellitus. ADA recommended reference range Performed By: #### E SR, RETIC, CBC #### [facility] [address] [place] [address] [place] Potassium [Moles/Vol] 4.3 mmol/L Normal 3.5-5.1 [facility] Comment on above: Performed By: #### E SR, RETIC, CBC #### [facility] [address] [place] [address] [place] Sodium [Moles/Vol] 133 mmol/L Low 136-146 [facility] Comment on above: Performed By: #### E SR, RETIC, CBC #### [facility] [address] [place] [address] [place] Urea nitrogen [Mass/Vol] 10 mg/dL Normal 9-[address] [facility] Comment on above: Performed By: #### E SR, RETIC, CBC #### [facility] [address] Bilirubin Test strip Ql (U)O rdered By: Parvin Batres on 04-17-2022 Bilirubin Ql (U) Negative Negative [facility] Cholesterol [Mass/volume] in Serum or PlasmaOrdered By: Parvin Batres on 04-17-2022 Cholesterol [Mass/Vol] 134 mg/dL 140-[address] [facility] Comment on above: Chol less than 200 m g/dl low risk Chol 201-239 mg/dl borderline risk Chol 240 mg/dl and greater high risk Cholesterol in LDL Calc [Mas s/Vol]Ordered By: Parvin Batres on 04-17-2022 Cholesterol in LDL [Mass/Vol] 76 mg/dL 0-[address] [facility] Comment on above: LDL ATP III CLASSIFI CATION LDL less than 100 mg/dL Optimal LDL 100-129 mg/dL Near or above optimal LDL 130-159 mg/dL Borderline high LDL 160-189 mg/dL High LDL greater than 189 mg/dL Very high Cholesterol in VLDL Calc [Ma ss/Vol]Ordered By: Parvin Batres on 04-17-2022 Cholesterol in VLDL [Mass/Vol] 13 mg/dL [facility] Color Auto (U)Ordered By: King Batres on 04-17-2022 Color (U) Yellow Yellow [facility] Complete Blood Count Auto Di ffon 04-17-2022 Basophils (Bld) [#/Vol] 0.1 10*3/uL Normal 0.0-0.[address] [facility] Comment on above: Result Comment: PERF ORMED BY: [place] [address] PATHOLOGIST ACCOUNTING RECONCILIATION CLERK JOSEY BOUCHER M.D. Performed By: #### E SR, RETIC, CBC #### [facility] [address] Basophils/100 WBC (Bld) 1.0 % Normal . [facility] Comment on above: Performed By: #### E SR, RETIC, CBC #### [facility] [address] Eosinophils (Bld) [#/Vol] 0.4 10*3/uL Normal 0.0-0.[address] [facility] Comment on above: Performed By: #### E SR, RETIC, CBC #### [facility] [address] Eosinophils/100 WBC (Bld) 4.5 % Normal . [facility] Comment on above: Performed By: #### E SR, RETIC, CBC #### [facility] [address] Erythrocyte distribution width (RBC) [Ratio] 17.3 % High 11.9-15.[address] [facility] Comment on above: Performed By: #### E SR, RETIC, CBC #### [facility] [address] [place] [address] [place] Hematocrit (Bld) [Volume fraction] 31.0 % Low 34.0-46.[address] [facility] Comment on above: Performed By: #### E SR, RETIC, CBC #### [facility] [address] Hemoglobin (Bld) [Mass/Vol] 10.2 g/dL Low 11.8-15.[address] [facility] Comment on above: Performed By: #### E SR, RETIC, CBC #### [facility] [address] Lymphocytes (Bld) [#/Vol] 1.9 10*3/uL Normal 1.00-4.[address] [facility] Comment on above: Performed By: #### E SR, RETIC, CBC #### [facility] [address] Lymphocytes/100 WBC (Bld) 21.5 % Normal . [facility] Comment on above: Performed By: #### E SR, RETIC, CBC #### [address] MCH (RBC) [Entitic mass] 25.2 pg Normal 24.7-34.[address] [facility] Comment on above: Performed By: #### E SR, RETIC, CBC #### [address] MCV (RBC) [Entitic vol] 76.5 fL Low 80-100 [facility] Comment on above: Performed By: #### E SR, RETIC, CBC #### [address] Mean Corpuscular HGB Conc 32.9 g/dL Normal 32.0-35.[address] [facility] Comment on above: Performed By: #### E SR, RETIC, CBC #### [address] Monocytes (Bld) [#/Vol] 0.6 10*3/uL Normal 0.0-0.[address] [facility] Comment on above: Performed By: #### E SR, RETIC, CBC #### [place] [address] [place] Monocytes/100 WBC (Bld) 7.1 % Normal . [facility] Comment on above: Performed By: #### E SR, RETIC, CBC #### [address] Neutrophils (Bld) [#/Vol] 5.7 10*3/uL Normal 1.8-7.[address] [facility] Comment on above: Performed By: #### E SR, RETIC, CBC #### [address] Neutrophils/100 WBC (Bld) 65.9 % Normal . [facility] Comment on above: Performed By: #### E SR, RETIC, CBC #### [address] Nucleated RBC/100 WBC (Bld) [Ratio] 0.0 % Normal 0-0.[address] [facility] Comment on above: Performed By: #### E SR, RETIC, CBC #### [address] Platelet mean volume (Bld) [Entitic vol] 6.8 fL Normal 6.3-10.[address] [facility] Comment on above: Performed By: #### E SR, RETIC, CBC #### [address] Platelets (Bld) [#/Vol] 849 10*3/uL High 150-[address] [facility] Comment on above: Performed By: #### E SR, RETIC, CBC #### [address] RBC (Bld) [#/Vol] 4.05 10*6/uL Normal 3.60-5.00 [facility] Comment on above: Performed By: #### E SR, RETIC, CBC #### [address] WBC (Bld) [#/Vol] 8.7 10*3/uL Normal 4.5-11.0 [facility] Comment on above: Performed By: #### E SR, RETIC, CBC #### [address] Dipstick and Microscopicon 0 04-17-2022 Appearance (U) Cloudy Critically abnormal Clear [facility] Comment on above: Order Comment: Name Collection Type:: Clean-Voided Midstream Performed By: #### A DDONUAMARIAM, CUU #### [address] Bacteria,Urine 3+ High None Seen [facility] Comment on above: Order Comment: Name Collection Type:: Clean-Voided Midstream Result Comment: PERF ORMED BY: [place] [address] PATHOLOGIST ACCOUNTING RECONCILIATION CLERK JOSEY BOUCHER M.D. Performed By: #### A DDONUAPLUS, CUU #### [place] [address] [place] Bilirubin,Urine Negative Normal Negative [facility] Comment on above: Order Comment: Name Collection Type:: Clean-Voided Midstream Performed By: #### A DDONUAPLUS, CUU #### [address] Color (U) Yellow Normal Yellow [facility] Comment on above: Order Comment: Name Collection Type:: Clean-Voided Midstream Performed By: #### A DDONUAPLUS, CUU #### [address] Glucose Ql (U) Normal Normal Normal [facility] Comment on above: Order Comment: Name Collection Type:: Clean-Voided Midstream Performed By: #### A DDONUAPLUS, CUU #### [address] Ketones Ql (U) Negative Normal Negative [facility] Comment on above: Order Comment: Name Collection Type:: Clean-Voided Midstream Performed By: #### A DDONUAPLUS, CUU #### [place] [address] [place] Leukocyte esterase Test strip Ql (U) 4+ High Negative [facility] Comment on above: Order Comment: Name Collection Type:: Clean-Voided Midstream Performed By: #### A DDONUAPLUS, CUU #### [place] [address] [place] Nitrite,Urine Negative Normal Negative [facility] Comment on above: Order Comment: Name Collection Type:: Clean-Voided Midstream Performed By: #### A DDONUAPLUS, CUU #### [address] Occult Blood,Urine Trace High Negative [facility] Comment on above: Order Comment: Name Collection Type:: Clean-Voided Midstream Result Comment: PERF ORMED BY: [place] [address] PATHOLOGIST ACCOUNTING RECONCILIATION CLERK JOSEY BOUCHER M.D. Performed By: #### A DDONUAPLUS, CUU #### [address] pH (U) 7.0 [pH] Normal 5.0-9.[address] [facility] Comment on above: Order Comment: Name Collection Type:: Clean-Voided Midstream Performed By: #### A DDONUAPLUS, CUU #### [address] Protein,Urine Negative Normal Negative [facility] Comment on above: Order Comment: Name Collection Type:: Clean-Voided Midstream Performed By: #### A DDONUAPLUS, CUU #### [address] RBC,Urine 5-9 High 0-[address] [facility] Comment on above: Order Comment: Name Collection Type:: Clean-Voided Midstream Performed By: #### A DDONUAPLUS, CUU #### [place] [address] [place] Specificy [place],Urine 1.013 Normal 1.001-1.[address] [facility] Comment on above: Order Comment: Name Collection Type:: Clean-Voided Midstream Performed By: #### A DDONUAPLUS, CUU #### [place] [address] [place] Squamous Epithelial Cell,Urine 10-19 High 0-[address] [facility] Comment on above: Order Comment: Name Collection Type:: Clean-Voided Midstream Performed By: #### A DDONUAPLUS, CUU #### [address] Urobilinogen,Urine Normal Normal Normal [facility] Comment on above: Order Comment: Name Collection Type:: Clean-Voided Midstream Performed By: #### A DDONUAPLUS, CUU #### [facility] [address] [place] [address] WBC,Urine Innumerable High 0-[address] [facility] Comment on above: Order Comment: Name Collection Type:: Clean-Voided Midstream Performed By: #### A DDONUAPLUS, CUU #### [facility] [address] ECH echo transthoracicon ECH echo transthoracic [facility] [place] [address] [place] [address] Echocardiogram Signed Patient: Corie Courtney MR#: [id number] : 1950 Acct:[id number] Age/Sex: 71 / F ADM Date: 04/16/22 Loc: Room: [address] [place] [address] Type: DIS INOo Attending Dr: Parvin Batres MD Ordering Provider: Josué Alvarez DO Date of Service: 04/17/2203/03/500 ECH/ECH echo transthoracic: leg swelling Copies to: MD Josué Neil DO Height: 60 in Weight: 102 lb Performed By: RAFY Ledezma BSA: 1.4 m2 BP: 120/85 mmHg HR: 105 Reason For Study: leg swelling History: COPD. CVA. HTN. Cancer. Smoker. Family history of CAD. Interpretation Summary Mild concentric left ventricular hypertrophy. Left ventricular systolic function is hyperdynamic. Ejection Fraction = >70%. A variety of Doppler measurements indicate impaired left ventricular relaxation, which is associated with grade I/IV or mild diastolic dysfunction. Resting LV Mean Pressure Gradient = 25 mmhg Compared to prior study, changes are noted. Procedure/Quality: A two-dimensional transthoracic echocardiogram with color flow and Doppler was performed. The study was technically good in quality. Left Ventricle: The left ventricular size is normal. Mild concentric left ventricular hypertrophy. Resting LV Mean Pressure Gradient = 25 mmhg. Left ventricular systolic function is hyperdynamic. Ejection Fraction = >70%. A variety of Doppler measurements indicate impaired left ventricular relaxation, which is associated with grade I/IV or mild diastolic dysfunction. Left Atrium: The left atrium appears normal in size. Right Atrium: The right atrium appears normal in size. Right Ventricle: The right ventricular size, thickness and function are normal. Aortic Valve: The aortic valve is normal in structure and function. No aortic regurgitation is present. Mitral Valve: The mitral valve is normal in structure and function. There is no mitral regurgitation noted. Tricuspid Valve: The tricuspid valve is normal in structure and function. No tricuspid regurgitation. Pulmonic Valve: The pulmonic valve is normal in structure and function. Arteries: The aortic root is normal size. Pericardium/Pleura: No pericardial effusion seen. There is no pleural effusion. IVC/Hepatic Viens: The inferior vena cava is normal in size, with a normal collapsibility index. Measurements with Normals IVSd: 0.94 cm (0.7-1.1 cm)LVIDd: 2.8 cm (3.7-5.4 cm) LVPWd: 1.2 cm (0.7-1.1 cm)LVIDs: 1.7 cm (2.3-3.6 cm) LA dimension: 3.1 cm(2.3-4.0 cm)Ao root diam: 2.3 cm(2.0-3.6 cm) Doppler with Normals LV V1 max: 122.5 cm/sec (0.7-1.7m/s)MV E max norris: 65.1 cm/sec(0.8-1.3m/s) MV A max norris: 97.7 cm/sec(0.0-0.0m/s) MV E/A: 0.67 (<1.5) MMode/2D Measurements Calculations RVDd: 2.5 cm FS: 38.3 % Ao root area: LVOT diam: 1.5 cm TAPSE: 2.0 cm EDV(Teich): 4.0 cm2 LVOT area: 1.7 cm2 RV S Norris: 30.4 ml 12.6 cm/sec ESV(Teich): 9.0 ml EF(Teich): 70.4 % __ LVLd ap4: 6.2 cm SV(MOD-sp4): LAV(MOD-sp4): LA A2 area: 9.7 cm2 EDV(MOD-sp4): 20.8 ml 23.6 ml 30.9 ml LAV(MOD-sp2): LA A4 area: 12.5 cm2 LVLs ap4: 5.4 cm 18.8 ml LA length (vol): ESV(MOD-sp4): 5.3 cm 10.1 ml LA vol: 19.4 ml EF(MOD-sp4): 67.3 % LA vol index: 13.9 ml/m2 Doppler Measurements Calculations MV dec time: E/E' lat: 5.6 MV dec slope: Ao V2 max: 0.35 sec E/E' med: 10.0 193.7 cm/sec 186.8 cm/sec2 Ao max P.0 mmHg Ao mean P.0 mmHg Ao V2 mean: 144.3 cm/sec Ao V2 VTI: 31.0 cm KWABENA(I,D): 1.3 cm2 KWABENA(V,D): 1.1 cm2 __ LV V1 max PG: RAP systole: 6.0 mmHg 5.0 mmHg LV V1 mean P.2 mmHg LV V1 mean: 84.2 cm/sec LV V1 VTI: 23.7 cm Transcribed By: SCV Performed At: 04/17/22 0853 Signed By: Jaquelin Connell MD 04/17/22 [address] [facility] Glucose mean value [Mass/vol ume] in Blood Estimated from glycated hemoglobinOrdered By: Josué Alvarez on 04-17-2022 Average glucose Estimated from glycated hemoglobin (Bld) [Mass/Vol] 131 mg/dL [facility] Hemoglobin A1c percentageOrd ered By: Josué Alvarez on 04-17-2022 HbA1c (Bld) [Mass fraction] 6.2 % 4.3-5.[address] [facility] Comment on above: Increased risk for d iabetes: 5.7 - 6.4 diabetes: >6.4 glycemic control for adults with diabetes: <7.0 Ketones Auto test strip (U) [Mass/Vol]Ordered By: Parvin Batres on 04-17-2022 Ketones (U) [Mass/Vol] Negative Negative [facility] Lipid Panelon 04-17-2022 Cholesterol [Mass/Vol] 134 mg/dL Low 140-[address] [facility] Comment on above: Result Comment: Chol less than 200 mg/dl low risk Chol 201-239 mg/dl borderline risk Chol 240 mg/dl and greater high risk Performed By: #### H APT, CRP, B12, LUIS ALFREDO, FE and TIBC, CREAT, ADDONUAPLUS, LDH #### [facility] [address] [place] [address] #### ANCA PROF #### [facility] , Cholesterol in HDL [Mass/Vol] 44 mg/dL Normal 35-[address] [facility] Comment on above: Result Comment: HDL CHOL ATP-III CLASSIFICATION Cardiovascular Risk HDL > or equal to 60 mg/dL LOW HDL < 40 mg/dL HIGH Performed By: #### H APT, CRP, B12, LUIS ALFREDO, FE and TIBC, CREAT, ADDONUAPLUS, LDH #### [facility] [address] [place] [address] #### ANCA PROF #### [facility] , Cholesterol.total/Lisa sterol in HDL [Mass ratio] 3.0 {ratio} Normal <5.[address] [facility] Comment on above: Result Comment: PERF ORMED BY: [place] [address] PATHOLOGIST ACCOUNTING RECONCILIATION CLERK JOSEY BOUCHER M.D. Performed By: #### H APT, CRP, B12, LUIS ALFREDO, FE and TIBC, CREAT, ADDONUAPLUS, LDH #### [place] [address] [place] #### ANCA PROF #### [facility] , LDL Cholesterol,Calculated 76 mg/dL Normal 0-[address] [facility] Comment on above: Result Comment: LDL ATP III CLASSIFICATION LDL less than 100 mg/dL Optimal LDL 100-129 mg/dL Near or above optimal LDL 130-159 mg/dL Borderline high LDL 160-189 mg/dL High LDL greater than 189 mg/dL Very high Performed By: #### H APT, CRP, B12, LUIS ALFREDO, FE and TIBC, CREAT, ADDONUAPLUS, LDH #### [facility] [address] [place] [address] [place] #### ANCA PROF #### [facility] , Triglyceride w/Reflex 68 mg/dL Normal 35-149 [facility] Comment on above: Result Comment: TRIG ATP III CLASSIFICATION TRIG less than 150 mg/dL Normal TRIG 150-199 mg/dL Borderline high TRIG 200-500 mg/dL High TRIG greater than 500 mg/dL Very high Standard traceable to the Center for Disease Conrtrol and Prevention (CDC) test method. Performed By: #### H APT, CRP, B12, LUIS ALFREDO, FE and TIBC, CREAT, ADDONUAPLUS, LDH #### [facility] [address] [place] [address] #### ANCA PROF #### [facility] , VLDL CHOLESTEROL 13 mg/dL Normal [facility] Comment on above: Performed By: #### H APT, CRP, B12, LUIS ALFREOD, FE and TIBC, CREAT, ADDONUAPLUS, LDH #### [facility] [address] [place] [address] [place] #### ANCA PROF #### [facility] , Cholesterol [Mass/Vol] 136 mg/dL Low 140-[address] [facility] Comment on above: Result Comment: Chol less than 200 mg/dl low risk Chol 201-239 mg/dl borderline risk Chol 240 mg/dl and greater high risk Performed By: #### E SR, RETIC, CBC #### [address] Cholesterol in HDL [Mass/Vol] 45 mg/dL Normal 35-[address] [facility] Comment on above: Result Comment: HDL CHOL ATP-III CLASSIFICATION Cardiovascular Risk HDL > or equal to 60 mg/dL LOW HDL < 40 mg/dL HIGH Performed By: #### E SR, RETIC, CBC #### [facility] [address] Cholesterol.total/Lisa sterol in HDL [Mass ratio] 3.0 {ratio} Normal <5.[address] [facility] Comment on above: Result Comment: PERF ORMED BY: [place] [address] PATHOLOGIST ACCOUNTING RECONCILIATION CLERK JOSEY BOUCHER M.D. Performed By: #### E SR, RETIC, CBC #### [facility] [address] LDL Cholesterol,Calculated 76 mg/dL Normal 0-[address] [facility] Comment on above: Result Comment: LDL ATP III CLASSIFICATION LDL less than 100 mg/dL Optimal LDL 100-129 mg/dL Near or above optimal LDL 130-159 mg/dL Borderline high LDL 160-189 mg/dL High LDL greater than 189 mg/dL Very high Performed By: #### E SR, RETIC, CBC #### [facility] [address] Triglyceride w/Reflex 76 mg/dL Normal 35-149 [facility] Comment on above: Result Comment: TRIG ATP III CLASSIFICATION TRIG less than 150 mg/dL Normal TRIG 150-199 mg/dL Borderline high TRIG 200-500 mg/dL High TRIG greater than 500 mg/dL Very high Standard traceable to the Center for Disease Conrtrol and Prevention (CDC) test method. Performed By: #### E SR, RETIC, CBC #### [facility] [address] VLDL CHOLESTEROL 15 mg/dL Normal [facility] Comment on above: Performed By: #### E SR, RETIC, CBC #### [facility] [address] Magnesiumon 04-17-2022 Magnesium [Mass/Vol] 1.7 mg/dL Normal 1.6-2.6 [facility] Comment on above: Performed By: #### E SR, RETIC, CBC #### [facility] [address] Nitrite Test strip Ql (U)Ord ered By: Parvin Batres on 04-17-2022 Nitrite Ql (U) Negative Negative [facility] Protein Auto test strip (U) [Mass/Vol]Ordered By: Parvin Batres on 04-17-2022 Protein (U) [Mass/Vol] Negative Negative Fi [facility] Serum or plasma high density lipoprotein (HDL) cholesterol measurementOrdered By: Parvin Batres on 04-17-2022 Cholesterol in HDL [Mass/Vol] 44 mg/dL 35-[address] [facility] Comment on above: HDL CHOL ATP-III CLA SSIFICATION Cardiovascular Risk HDL > or equal to 60 mg/dL LOW HDL < 40 mg/dL HIGH Serum or plasma total choles terol/high density lipoprotein (HDL) cholesterol mass ratOrdered By: Parvin Batres on 04-17-2022 Cholesterol.total/Lisa sterol in HDL [Mass ratio] 3.0 {ratio} <5.[address] [facility] Specific gravity Auto test s trip (U) [Rel density]Ordered By: Parvin Batres on 04-17-2022 Specific gravity (U) [Rel density] 1.013 1.001-1.[address] [facility] Triglyceride [Mass/volume] i n Serum or PlasmaOrdered By: Parvin Batres on 04-17-2022 Triglyceride [Mass/Vol] 68 mg/dL 35-149 [facility] Comment on above: TRIG ATP III CLASSIF ICATION TRIG less than 150 mg/dL Normal TRIG 150-199 mg/dL Borderline high TRIG 200-500 mg/dL High TRIG greater than 500 mg/dL Very high Standard traceable to the Center for Disease Conrtrol and Prevention (CDC) test method. Troponin I High Sensitivityo n 04-17-2022 Troponin I High Sensitivity 435 pg/mL Off scale high 0-[address] [facility] Comment on above: Result Comment: Resu lts called at 0847 on 04/17/22 PERFORMED BY: [address] [place] [address] PATHOLOGIST ACCOUNTING RECONCILIATION CLERK JOSEY BOUCHER M.D. Performed By: #### E SR, RETIC, CBC #### [facility] [address] Troponin I High Sensitivity 436 pg/mL Off scale high 0-[address] [facility] Comment on above: Result Comment: Resu lts called at 0149 on 04/17/22 PERFORMED BY: [place] [address] PATHOLOGIST ACCOUNTING RECONCILIATION CLERK JOSEY BOUCHER M.D. Performed By: #### H APT, CRP, B12, LUIS ALFREDO, FE and TIBC, CREAT, ADDONUAPLUS, LDH #### [facility] [address] [place] [address] [place] #### ANCA PROF #### [facility] , Troponin I.cardiac [Mass/vol ume] in Serum or Plasma by High sensitivity methodOrdered By: Josué Alvarez on 04-17-2022 Troponin I.cardiac High sensitivity method [Mass/Vol] 435 pg/mL 0-[address] [facility] Comment on above: Results called at 0847 on 04/17/22 Urine Cultureon 04-17-2022 Bacteria identified Cx Nom (U) ORGANISM: Escherichia coli (O:ESCCOL) Emmet Count 75,000 Aerobic ADWOA Charge (NUC86) ---- SUSCEPTIBILITY --- ORGANISM: O:ESCCOL ANTIBIOTIC INTERPRETATION ADWOA Amikacin S <16 Ampicillin R >16 Ampicillin/Sulbactam I 1616/8 Aztreonam S <4 Cefazolin S <2 Cefepime S <2 Ceftazidime S <1 Ceftazidime/Avibactam S <8 Ceftriaxone S <1 Ciprofloxacin S <1 Ertapenem S <0.5 Gentamicin S <4 Levofloxacin S <2 Meropenem S <1 Nitrofurantoin S <32 Piperacillin/Tazobact am S <16 Tetracycline S <4 Tigecycline S <2 Tobramycin S <4 Trimethoprim/Sulfamet hoxazole S <2/38 S = SUSCEPTIBLE I = INTERMEDIATE R = RESISTANT BLANK = DATA NOT AVAILABLE, OR DRUG NOT ADVISABLE OR TESTED R* = RESISTANCE DUE TO EXTENDED SPECTRUM BETA-LACTAMASES ESBL = EXTENDED SPECTRUM BETA-LACTAMASE TFG = THYMIDINE-DEPENDENT STRAIN VICTORINO = BETA-LACTAMASE POSITIVE IB = INDUCIBLE BETA-LACTAMASE. APPEARS IN PLACE OF 'S' WITH SPECIES KNOWN TO POSSESS INDUCIBLE BETA-LACTAMASES. POTENTIALLY THEY MAY BECOME RESISTANT TO ALL B-LACTAM DRUGS. PERFORMED BY: [place] [address] PATHOLOGIST ACCOUNTING RECONCILIATION CLERK JOSEY BOUCHER M.D. Normal [facility] Comment on above: Performed By: #### A SHARAD CHEN #### [address] Urine bacteria detection by automated methodOrdered By: Parvin Batres on 04-17-2022 Bacteria Auto Ql (U) 3+ None Seen [facility] Urine clarity by refractomet ry automatedOrdered By: Parvin Batres on 04-17-2022 Clarity Refractometry automated (U) Cloudy Clear [facility] Urine glucose measurement by automated test strip (mass/volume)Ordered By: Parvin Batres on 04-17-2022 Glucose Auto test strip (U) [Mass/Vol] Normal mg/dL Normal [facility] Urine hemoglobin detection b y automated test stripOrdered By: Parvin Batres on 04-17-2022 Hemoglobin Auto test strip Ql (U) Trace Negative [facility] Urine leukocyte esterase det ection by automated test stripOrdered By: Parvin Batres on 04-17-2022 Leukocyte esterase Auto test strip Ql (U) 4+ Negative [facility] Urobilinogen Auto test strip (U) [Mass/Vol]Ordered By: Parvin Batres on 04-17-2022 Urobilinogen (U) [Mass/Vol] Normal mg/dL Normal [facility] pH Auto test strip (U)Ordere d By: Parvin Batres on 04-17-2022 pH (U) 7.0 [pH] 5.0-9.[address] [facility] Activated partial thrombopla stin time (aPTT) in platelet poor plasma by coagulation aOrdered By: Layo Sheridan on 04-16-2022 aPTT Coag (PPP) [Time] 30.5 s 25.1-36.5 [facility] Albumin [Mass/volume] in Ser um or PlasmaOrdered By: Layo Sheridan on 04-16-2022 Albumin [Mass/Vol] 2.6 g/dL 3.2-5.5 [facility] B-Type Natriuretic Peptideon 04-16-2022 Natriuretic peptide B (Bld) [Mass/Vol] 118.0 pg/mL High 5-[address] [facility] Comment on above: Result Comment: PERF ORMED BY: [facility] [address] [place] [address] PATHOLOGIST ACCOUNTING RECONCILIATION CLERK JOSEY BOUCHER M.D. Performed By: #### E SR, RETIC, CBC #### [facility] [address] COVID CepheidOrdered By: Ana Ramirez on 04-16-2022 SARS-CoV-2 (COVID-19) Ab IA Ql Negative Negative [facility] Comment on above: This is a duplicate Cepheid Xpert Xpress CoV-2/Flu/RSV Plus RNA by RT-PCR result to be used for statistical tracking purpose only. SARS-CoV-2 (COVID-19) RNA KIARRA+probe Ql (Unsp spec) [facility] COVID-19 / Flu A/B / RSV PCR on 04-16-2022 SARS-CoV-2 (COVID-19) RNA KIARRA+probe Ql (Unsp spec) COVID-19 Cepheid Result Negative for SARS-CoV-2 RNA by RT-PCR Flu A Cepheid Result Negative for Flu A RNA by RT-PCR Flu B Cepheid Result Negative for Flu B RNA by RT-PCR RSV Cepheid Result Negative for RSV RNA by RT-PCR COVID19 Blank Space Reference: Negative COVID19 Blank Space Cepheid Disclaimer The Cepheid Xpert Xpress CoV-2/Flu/RSV Plus has Cepheid Disclaimer not been FDA cleared or approved; this test has Cepheid Disclaimer been authorized by FDA under an EUA for use by Cepheid Disclaimer authorized laboratories; this test has been Cepheid Disclaimer authorized only for the simultaneous qualitative Cepheid Disclaimer detection and differentiation of nucleic acids from Cepheid Disclaimer SARS-CoV-2, influenza A, influenza B, and Cepheid Disclaimer respiratory syncytial virus (RSV), and not for any Cepheid Disclaimer other viruses or pathogens; and this test is only Cepheid Disclaimer authorized for the duration of the declaration that Cepheid Disclaimer circumstances exist justifying the authorization of Cepheid Disclaimer emergency use of in vitro diagnostic tests for Cepheid Disclaimer detection and/or diagnosis of COVID-19 under Cepheid Disclaimer Section 564(b)(1) of the Act, 21 U.S.C. 360bbb- Cepheid Disclaimer 3(b)(1), unless the authorization is terminated or Cepheid Disclaimer revoked sooner. PERFORMED BY: [place] [address] PATHOLOGIST ACCOUNTING RECONCILIATION CLERK JOSEY BOUCHER M.D. Normal [facility] Comment on above: Performed By: #### E SR, RETIC, CBC #### [facility] [address] [place], [place] [id number] [facility] Cepheid COVID PCR Negativeon 04-16-2022 SARS-CoV-2 (COVID-19) RNA KIARRA+probe Ql (Unsp spec) Negative Normal Negative [facility] Comment on above: Result Comment: This is a duplicate Cepheid Xpert Xpress CoV-2/Flu/RSV Plus RNA by RT-PCR result to be used for statistical tracking purpose only. PERFORMED BY: [place] [address] PATHOLOGIST ACCOUNTING RECONCILIATION CLERK JOSEY BOUCHER M.D. Performed By: #### E SR, RETIC, CBC #### [address] Complete Blood Count Auto Di ffon 04-16-2022 Basophils (Bld) [#/Vol] 0.1 10*3/uL Normal 0.0-0.[address] [facility] Comment on above: Result Comment: PERF ORMED BY: [place] [address] PATHOLOGIST ACCOUNTING RECONCILIATION CLERK JOSEY BOUCHER M.D. Performed By: #### E SR, RETIC, CBC #### [address] Basophils/100 WBC (Bld) 1.4 % Normal . [facility] Comment on above: Performed By: #### E SR, RETIC, CBC #### [address] Eosinophils (Bld) [#/Vol] 0.3 10*3/uL Normal 0.0-0.[address] [facility] Comment on above: Performed By: #### E SR, RETIC, CBC #### [address] Eosinophils/100 WBC (Bld) 3.7 % Normal . [facility] Comment on above: Performed By: #### E SR, RETIC, CBC #### [address] Erythrocyte distribution width (RBC) [Ratio] 17.1 % High 11.9-15.[address] [facility] Comment on above: Performed By: #### E SR, RETIC, CBC #### [address] Hematocrit (Bld) [Volume fraction] 28.4 % Low 34.0-46.[address] [facility] Comment on above: Performed By: #### E SR, RETIC, CBC #### [address] Hemoglobin (Bld) [Mass/Vol] 9.2 g/dL Low 11.8-15.[address] [facility] Comment on above: Performed By: #### E SR, RETIC, CBC #### [address] [place] [address] [place] Lymphocytes (Bld) [#/Vol] 2.8 10*3/uL Normal 1.00-4.[address] [facility] Comment on above: Performed By: #### E SR, RETIC, CBC #### [place] [address] [place] Lymphocytes/100 WBC (Bld) 30.4 % Normal . [facility] Comment on above: Performed By: #### E SR, RETIC, CBC #### [address] MCH (RBC) [Entitic mass] 24.9 pg Normal 24.7-34.[address] [facility] Comment on above: Performed By: #### E SR, RETIC, CBC #### [address] MCV (RBC) [Entitic vol] 77.0 fL Low 80-100 [facility] Comment on above: Performed By: #### E SR, RETIC, CBC #### [address] Mean Corpuscular HGB Conc 32.4 g/dL Normal 32.0-35.[address] [facility] Comment on above: Performed By: #### E SR, RETIC, CBC #### [place] [address] [place] Monocytes (Bld) [#/Vol] 0.8 10*3/uL Normal 0.0-0.[address] [facility] Comment on above: Performed By: #### E SR, RETIC, CBC #### [place] [address] [place] Monocytes/100 WBC (Bld) 8.6 % Normal . [facility] Comment on above: Performed By: #### E SR, RETIC, CBC #### [place] [address] [place] Neutrophils (Bld) [#/Vol] 5.1 10*3/uL Normal 1.8-7.[address] [facility] Comment on above: Performed By: #### E SR, RETIC, CBC #### [facility] [address] Neutrophils/100 WBC (Bld) 55.9 % Normal . [facility] Comment on above: Performed By: #### E SR, RETIC, CBC #### [facility] [address] Nucleated RBC/100 WBC (Bld) [Ratio] 0.0 % Normal 0-0.[address] [facility] Comment on above: Performed By: #### E SR, RETIC, CBC #### [facility] [address] Platelet mean volume (Bld) [Entitic vol] 6.9 fL Normal 6.3-10.[address] [facility] Comment on above: Performed By: #### E SR, RETIC, CBC #### [facility] [address] Platelets (Bld) [#/Vol] 696 10*3/uL High 150-[address] [facility] Comment on above: Performed By: #### E SR, RETIC, CBC #### [address] RBC (Bld) [#/Vol] 3.69 10*6/uL Normal 3.60-5.00 [facility] Comment on above: Performed By: #### E SR, RETIC, CBC #### [place] [address] [place] WBC (Bld) [#/Vol] 9.1 10*3/uL Normal 4.5-11.0 [facility] Comment on above: Performed By: #### E SR, RETIC, CBC #### [address] Comprehensive Metabolic Pane dinora 04-16-2022 Albumin [Mass/Vol] 2.6 g/dL Low 3.2-5.5 [facility] Comment on above: Performed By: #### E SR, RETIC, CBC #### [address] Albumin/Globulin [Mass ratio] 0.7 {ratio} Normal [facility] Comment on above: Performed By: #### E SR, RETIC, CBC #### [facility] [address] [place] [id number] [facility] ALP [Catalytic activity/Vol] 85 U/L Normal 32-[address] [facility] Comment on above: Performed By: #### E SR, RETIC, CBC #### [facility] [address] [place] [id number] [facility] ALT [Catalytic activity/Vol] 17 U/L Normal 10-[address] [facility] Comment on above: Performed By: #### E SR, RETIC, CBC #### [facility] [address] [place] [id number] [facility] AST [Catalytic activity/Vol] 17 U/L Normal 10-[address] [facility] Comment on above: Performed By: #### E SR, RETIC, CBC #### [facility] [address] Bilirubin [Mass/Vol] 0.4 mg/dL Normal 0.3-1.2 [facility] Comment on above: Performed By: #### E SR, RETIC, CBC #### [facility] [address] Calcium [Mass/Vol] 9.5 mg/dL Normal 8.2-10.2 [facility] Comment on above: Performed By: #### E SR, RETIC, CBC #### [facility] [address] [place] [address] [place] Chloride [Moles/Vol] 95 mmol/L Normal 95-114 [facility] Comment on above: Performed By: #### E SR, RETIC, CBC #### [facility] [address] [place] [id number] [place] CO2 [Moles/Vol] 24.3 mmol/L Normal 22.0-30.0 [facility] Comment on above: Performed By: #### E SR, RETIC, CBC #### [facility] [address] [place] [id number] [facility] Creatinine [Mass/Vol] 0.93 mg/dL Normal 0.44-1.03 [facility] Comment on above: Performed By: #### E SR, RETIC, CBC #### [facility] [address] Creatinine Clr Calc Pharmacy 41.01 [facility] Comment on above: Performed By: #### E SR, RETIC, CBC #### [facility] [address] Estimated GFR ( Ysabel > 60 [facility] Comment on above: Result Comment: GFR estimated reference range: According to KDOQI guidelines, <60 ml/min/1.73m2 is sufficient to diagnose a patient with chronic kidney disease. Performed By: #### E SR, RETIC, CBC #### [facility] [address] Estimated GFR (Non- Am 60 [facility] Comment on above: Performed By: #### E SR, RETIC, CBC #### [address] Globulin (S) [Mass/Vol] 3.9 g/dL Normal [facility] Comment on above: Performed By: #### E SR, RETIC, CBC #### [address] Glucose [Mass/Vol] 92 mg/dL Normal 70-100 [facility] Comment on above: Result Comment: [place] Glucose Reference Range is dependent on time and content of last meal. Glucose of more than 200 mg/dL in a nonstressed, ambulatory subject supports the diagnosis of Diabetes Mellitus. ADA recommended reference range Performed By: #### E SR, RETIC, CBC #### [facility] [address] Potassium [Moles/Vol] 4.3 mmol/L Normal 3.5-5.1 [facility] Comment on above: Performed By: #### E SR, RETIC, CBC #### [facility] [address] Protein [Mass/Vol] 6.5 g/dL Normal 6.1-7.9 [facility] Comment on above: Performed By: #### E SR, RETIC, CBC #### [facility] [address] [place] [address] [place] Sodium [Moles/Vol] 131 mmol/L Low 136-146 [facility] Comment on above: Performed By: #### E SR, RETIC, CBC #### [facility] [address] [place] [id number] [place] Urea nitrogen [Mass/Vol] 13 mg/dL Normal 9-[address] [facility] Comment on above: Performed By: #### E SR, RETIC, CBC #### [facility] [address] Direct bilirubin measurement Ordered By: Layo Sheridan on 04-16-2022 Bilirubin.direct [Mass/Vol] mg/dL 0.0-0.[address] [facility] ECG 12 lead ECGon 04-16-2022 ECG 12 lead ECG [facility] Main [place] [address] [place] [address] Electrocardiograph Report Signed Patient: Corie Courtney MR#: [id number] : 1950 Acct:[id number] Age/Sex: 71 / F ADM Date: 04/16/22 Loc: Room: [address] [place] [address] Type: DIS INOo Attending Dr: Parvin Batres MD Ordering Provider: Layo Sheridan APRN Date of Service: 04/16/2201/31/1717 ECG/ECG 12 lead ECG: Extremity Injury, Lower Copies to: Test Reason : Blood Pressure : / mmHG Vent. Rate : 088 BPM Atrial Rate : 088 BPM P-R Int : 142 ms QRS Dur : 066 ms QT Int : 350 ms P-R-T Axes : 073 061 070 degrees QTc Int : 423 ms Normal sinus rhythm Possible Left atrial enlargement Borderline ECG When compared with ECG of 09-OCT-2020 19:48, T wave inversion no longer evident in Lateral leads Confirmed by MARSHALL MAYBERRY MD ([id number]) on 04/17/2022 1:32:04 AM Referred By: Electronically Signed By:MARSHALL MAYBERRY MD Transcribed By: MUS Signed By Marshall Mayberry MD 04/17/22 [address] [facility] Globulin Calc (S) [Mass/Vol] Ordered By: Layo Sheridan on 04-16-2022 Globulin (S) [Mass/Vol] 3.9 g/dL [facility] Hepatic Panelon 04-16-2022 Bilirubin,Indirect Not performed Normal [facility] Comment on above: Result Comment: PERF ORMED BY: [place] [address] PATHOLOGIST ACCOUNTING RECONCILIATION CLERK JOSEY BOUCHER M.D. Performed By: #### E SR, RETIC, CBC #### [facility] [address] Bilirubin.indirect [Mass/Vol] mg/dL Normal 0.0-0.[address] [facility] Comment on above: Performed By: #### E SR, RETIC, CBC #### [facility] [address] [place] [address] Laboratory - Chemistry and C hemistry - challengeOrdered By: Layo Sheridan on 04-16-2022 Natriuretic peptide B (Bld) [Mass/Vol] 118.0 pg/mL 5-[address] [facility] Laboratory - CoagulationOrde red By: Layo Sheridan on 04-16-2022 PT Coag (PPP) [Time] 14.0 s 9.0-12.9 [facility] Partial Thromboplastin Timeo n 04-16-2022 aPTT Coag (Bld) [Time] 30.5 s Normal 25.1-36.[address] [facility] Comment on above: Result Comment: PERF ORMED BY: [place] [address] PATHOLOGIST ACCOUNTING RECONCILIATION CLERK JOSEY BOUCHER M.D. Performed By: #### E SR, RETIC, CBC #### [facility] [address] [place] [address] Platelet poor plasma interna tional normalized ratio (INR) by coagulation assay (relatOrdered By: Layo Sheridan on 04-16-2022 INR Coag (PPP) [Relative time] 1.2 {INR} [facility] Comment on above: INR Therapeutic Rang e A) Pre- and Peroperative OAT started two weeks before surgery. NOT HIP SURGERY: 1.5 - 2.5 HIP SURGERY: 2 - 3 B) Primary and secondary prevention of venous THROMBOSIS: 2 - 3 C) Active venous thrombosis, pulmonary embolism and prevention of recurrent venous thrombosis: 2 - 3 D) Prevention of arterial thromboembolism including patients with mechanical heart valves: 3 - 4.5 Protein [Mass/volume] in Ser um or PlasmaOrdered By: Layo Sheridan on 04-16-2022 Protein [Mass/Vol] 6.5 g/dL 6.1-7.9 [facility] Prothrombin Time INRon 04-16 INR Coag (PPP) [Relative time] 1.2 {INR} Normal [facility] Comment on above: Result Comment: INR Therapeutic Range A) Pre- and Peroperative OAT started two weeks before surgery. NOT HIP SURGERY: 1.5 - 2.5 HIP SURGERY: 2 - 3 B) Primary and secondary prevention of venous THROMBOSIS: 2 - 3 C) Active venous thrombosis, pulmonary embolism and prevention of recurrent venous thrombosis: 2 - 3 D) Prevention of arterial thromboembolism including patients with mechanical heart valves: 3 - 4.5 Performed By: #### E SR, RETIC, CBC #### [facility] [address] PT Coag (PPP) [Time] 14.0 s High 9.0-12.9 [facility] Comment on above: Performed By: #### E SR, RETIC, CBC #### [facility] [address] Serum or plasma alanine rajan otransferase measurement without P-5'-P (enzymatic activiOrdered By: Layo Sheridan on 04-16-2022 ALT No additional P-5'-P [Catalytic activity/Vol] 17 U/L 10-[address] [facility] Serum or plasma albumin/glob ulin mass ratioOrdered By: Layo Sheridan on 04-16-2022 Albumin/Globulin [Mass ratio] 0.7 {ratio} [facility] Serum or plasma alkaline kim sphatase measurement (enzymatic activity/volume)Ordered By: Layo Sheridan on 04-16-2022 ALP [Catalytic activity/Vol] 85 U/L 32-[address] [facility] Serum or plasma aspartate am inotransferase measurement (enzymatic activity/volume)Ordered By: Layo Sheridan on 04-16-2022 AST [Catalytic activity/Vol] 17 U/L 10-[address] [facility] Serum or plasma non-glucuron idated bilirubin measurement (mass/volume)Ordered By: Layo Sheridan on 04-16-2022 Bilirubin.indirect [Mass/Vol] TNP [facility] Comment on above: Test not performed Serum or plasma total biliru bin measurement (mass/volume)Ordered By: Layo Sheridan on 04-16-2022 Bilirubin [Mass/Vol] 0.4 mg/dL 0.3-1.2 [facility] Troponin I High Sensitivityo n 04-16-2022 Troponin I High Sensitivity 314 pg/mL Off scale high 0-[address] [facility] Comment on above: Result Comment: Resu lts called at 1947 on 04/16/22 PERFORMED BY: [place] [address] PATHOLOGIST ACCOUNTING RECONCILIATION CLERK JOSEY BOUCHER M.D. Performed By: #### E SR, RETIC, CBC #### [address] XR chest 2V*on 04-16-2022 XR chest 2V* [facility] Main [place] [address] [place] [address] XRay Report Signed Patient: Corie Courtney MR#: [id number] : 1950 Acct:[id number] Age/Sex: 71 / F ADM Date: 04/16/22 Loc: ER Room: Type: [facility] ER Attending Dr: Copies to: Layo Sheridan APRN Ordering Provider: Layo Sheridan APRN Date of Service: 04/16/22 XR/XR chest 2V*: Extremity Injury, Lower Plain film chest2 view HISTORY:bilateral lower extremity swelling. COMPARISON:10/01/20 FINDINGS:Similar interstitial prominence identified. Atherosclerosis of thoracic aorta present. The cardiac, mediastinal and hilar silhouettes are within normal limits. No acute lung process, pleural effusion or pneumothorax identified. Diffuse osteopenia. Thoracic spondylosis. Mild lateral curvature. XR/XR chest 2V* IMPRESSION: No acute process. Impression dictated by: Akil Osman M.D.04/16/2022 6:29 PM Dictation Location: [place] [address] Transcribed By: [facility] 04/16/221828 Dictated By: Akil Osman DO 04/16/221826 Signed By: 04/16/22[address] [facility] XR knee LT 4V*on 01-29-2022 XR knee LT 4V* [facility] [place] Other XR knee LT 4V* [employer] Main [facility] [place] Other XR knee LT 4V* [address] [place] [address] ipnexus Other XR knee LT 4V* [place] [address] No rt ipnexus Other XR knee LT 4V* XRay Report [employer] Other XR knee LT 4V* Signed Neura Other XR knee LT 4V* Patient: Corie Courtney MR#: [id number] [place] [facility]us Other XR knee LT 4V* [id number] [facility] Other XR knee LT 4V* : 1950 Acct:[id number] [facility] Other XR knee LT 4V* Age/Sex: 71 / F ADM Date: 01/29/22 [facility] Other XR knee LT 4V* Loc: XDUCLY Room: Type: [facility] [place] Other XR knee LT 4V* Attending Dr: Estelita ACEVEDO [facility] Other XR knee LT 4V* Ordering Provider: CURTIS Bhardwaj [facility] Other XR knee LT 4V* Date of Service: 01/29/22 [facility] Other XR knee LT 4V* XR/XR knee LT 4V*: LEFT KNEE PAIN [facility] Other XR knee LT 4V* Copies to: Estelita Sheridan, YARITZAC [facility] Other XR knee LT 4V* LEFT KNEE - 4 views N [facility]nexus Other XR knee LT 4V* CLINICAL HISTORY: Left knee pain and swelling for 2 months. No known trauma. [facility] Other XR knee LT 4V* COMPARISON: None Nort [facility]nexus Other XR knee LT 4V* FINDINGS: Neura Other XR knee LT 4V* Large knee joint effusion with likely Ness's cyst. Vascular calcifications. Bones are grossly [facility] Other XR knee LT 4V* demineralized. No acute bony process. Minimal degenerative change. No significant joint space [facility] Other XR knee LT 4V* narrowing. Neura Other XR knee LT 4V* XR/XR knee LT 4V* [facility] Other XR knee LT 4V* IMPRESSION: Emp[employer]o Other XR knee LT 4V* LARGE KNEE JOINT EFFUSION WITH PRESUMED NESS'S CYST NOTED. MINIMAL DEGENERATIVE CHANGE. NO ACUTE [facility] Other XR knee LT 4V* BONY PROCESS. [employer] Other XR knee LT 4V* Impression dictated by: Obie Chaidez Jr. DDominiqueODominique01/29/2022 5:02 PM [facility] Other XR knee LT 4V* Dictation Location: RADIO-PC-09 [facility] Other XR knee LT 4V* Transcribed By: PWS 01/29/221701 [facility] Other XR knee LT 4V* Dictated By: Obie Chaidez Jr, 01/29/221700 [facility] Other XR knee LT 4V* Signed By: [place] Navins t [place] [place] Other XR knee LT 4V* 01/29/221701 [facility] oast [place] Other XR WRIST LT MIN 3 Von 2018 XR WRIST LT MIN 3 V Patient: CORIE CORUTNEY Exam Date: 01/15/2019 : 1950 Gender:F Ordering : DR. GUME RODRIGUEZ M.D. Admission #: [id number] Family : Order #: [id number] CLICK HERE TO VIEW EXAM RADIOLOGY REPORT PROCEDURE: RADIOGRAPH WRIST LEFT MIN 3 VIEWS COMPARISON: None. INDICATIONS: Acute left lateral wrist pain for three hours FINDINGS: BONES: Marked narrowing of the 1st carpal-metacarpal joint. No fracture, dislocation, or bone lesion. SOFT TISSUES: No visible soft tissue swelling or radiopaque foreign body. OTHER: Negative. CONCLUSION: 1. No acute bone abnormality. 2. Marked degenerative changes at the base of the thumb. Dictated by: Rogers Sheehan M.D. on 01/15/2019 at 08:08 Approved by: Rogers Sheehan M.D. on 01/15/2019 at 08:27 Normal [facility] Vital Signs Date Time Vital Sign Value Performing Clinician Facility 03-22-2023 09:00-0400 Body height 149.86 cm [facility] Other [facility] Other 03-22-2023 09:00-0400 Body mass index (BMI) [Ratio] 19.59 kg/m2 [facility] Other [facility] Other 03-22-2023 09:00-0400 Body temperature 96.4 [degF] Joy Kaiser Other [facility] Other 03-22-2023 09:00-0400 Body weight 44 kg Joy Kaiser Other [facility] Other 03-22-2023 09:00-0400 Diastolic blood pressure 84 mm[Hg] Joy Kaiser Other [facility] Other 03-22-2023 09:00-0400 Respiratory rate 20 /min Joy Kaiser Other [facility] Other 03-22-2023 09:00-0400 SaO2% (BldA) [Mass fraction] 97 % Joy Kaiser Other [facility] Other 03-22-2023 09:00-0400 Systolic blood pressure 158 mm[Hg] Joy Kaiser Other [facility] Other 03-04-2023 08:13-0400 Body height 152.4 cm Delfina Trevino Work Phone: FI-Qvkagkzipw-Ejihcv [place] 250 DO Work Phone: 03-04-2023 08:13-0400 Body mass index (BMI) [Ratio] 18.75 kg/m2 Delfina Trevino Work Phone: LP-Qmxgnumqcs-Jkmkif [place] 250 DO Work Phone: 03-04-2023 08:13-0400 Body surface area Derived from formula 1.37 m2 Delfina Trevino Work Phone: AX-Krucamiovo-Yeuvbj [place] 250 DO Work Phone: 03-04-2023 08:13-0400 Body weight 43.55 kg Delfina Trevino Work Phone: UH-Tfzqtirlvo-Fukrgo [place] 250 DO Work Phone: 03-04-2023 08:13-0400 Diastolic blood pressure 68 mm[Hg] Delfina K Myerholtz Work Phone: ZQ-Facxsweckl-Yculyc [place] 250 DO Work Phone: 03-04-2023 08:13-0400 Heart rate 83 /min Delfina K Myerholtz Work Phone: YW-Fqcfodwuxc-Akbjmc [place] 250 DO Work Phone: 03-04-2023 08:13-0400 Systolic blood pressure 122 mm[Hg] Delfina K Myerholtz Work Phone: VL-Bwybqaqnvh-Zhoblg [place] 250 DO Work Phone: 02-28-2023 09:46-0400 Diastolic blood pressure 77 mm[Hg] ORDER PROCESSING MANAGER Delfina Myerholtz Work Phone: [facility] 02-28-2023 09:46-0400 Heart rate 90 /min ORDER PROCESSING MANAGER Delfina Myerholtz Work Phone: [facility] 02-28-2023 09:46-0400 Systolic blood pressure 133 mm[Hg] ORDER PROCESSING MANAGER Delfina Myerholtz Work Phone: [facility] 02-28-2023 09:44-0400 Body height 152.4 cm ORDER PROCESSING MANAGER Delfina Myerholtz Work Phone: [facility] 02-28-2023 09:44-0400 Body weight 45.35 kg ORDER PROCESSING MANAGER Delfina Myerholtz Work Phone: [facility] 02-28-2023 00:00-0400 93 1 Jaquelin Connell MD Work Phone: [facility] 600 DO Work Phone: Comment on above: [id number] 12-16-2022 16:50-0400 Body temperature 98.3 [degF] ORDER PROCESSING MANAGER Delfina Myerholtz Work Phone: [facility] 12-16-2022 16:50-0400 Diastolic blood pressure 90 mm[Hg] ORDER PROCESSING MANAGER Delfina Myerholtz Work Phone: [facility] 12-16-2022 16:50-0400 Heart rate 91 /min ORDER PROCESSING MANAGER Delfina Myerholtz Work Phone: [facility] 12-16-2022 16:50-0400 Respiratory rate 20 /min ORDER PROCESSING MANAGER Delfina Myerholtz Work Phone: [facility] 12-16-2022 16:50-0400 SaO2% (BldA) [Mass fraction] 100 % ORDER PROCESSING MANAGER Delfina Myerholtz Work Phone: [facility] 12-16-2022 16:50-0400 Systolic blood pressure 180 mm[Hg] ORDER PROCESSING MANAGER Delfina Myerholtz Work Phone: [facility] 12-16-2022 16:49-0400 Body height 152.4 cm ORDER PROCESSING MANAGER Delfina Myerholtz Work Phone: [facility] 12-16-2022 16:49-0400 Body weight 48.98 kg ORDER PROCESSING MANAGER Delfina Myerholtz Work Phone: [facility] 09-22-2022 16:20-0500 Body height 152.4 cm [employer] Dragon[facility] Other [facility] [place] [place] Other 09-22-2022 16:20-0500 Body mass index (BMI) [Ratio] 19.76 kg/m2 [facility] Other [facility] Other 09-22-2022 16:20-0500 Body temperature 97.4 [degF] [facility] Other [facility] Other 09-22-2022 16:20-0500 Body weight 45.9 kg Linda Fontanez Other [facility] Other 09-22-2022 16:20-0500 Diastolic blood pressure 82 mm[Hg] Linda Fontanez Other [facility] Other 09-22-2022 16:20-0500 Respiratory rate 18 /min Linda Fontanez Other [facility] Other 09-22-2022 16:20-0500 SaO2% (BldA) [Mass fraction] 96 % Linda Fontanez Other [facility] Other 09-22-2022 16:20-0500 Systolic blood pressure 130 mm[Hg] Linda Fontanez Other [facility] [place] [place] Other 04-18-2022 11:34-0400 Heart rate 71 /min ORDER PROCESSING MANAGER Delfina Myerholtz Work Phone: [facility] 04-18-2022 11:34-0400 Respiratory rate 20 /min ORDER PROCESSING MANAGER Delfina Myerholtz Work Phone: [facility] 04-18-2022 11:11-0400 Body temperature 97.2 [degF] ORDER PROCESSING MANAGER Delfina Myerholtz Work Phone: [facility] 04-18-2022 11:11-0400 Diastolic blood pressure 68 mm[Hg] ORDER PROCESSING MANAGER Delfina Myerholtz Work Phone: [facility] 04-18-2022 11:11-0400 SaO2% (BldA) [Mass fraction] 98 % ORDER PROCESSING MANAGER Delfina Myerholtz Work Phone: [facility] 04-18-2022 11:11-0400 Systolic blood pressure 100 mm[Hg] ORDER PROCESSING MANAGER Delfina Myerholpenny Work Phone: [facility] 04-18-2022 04:48-0400 Body weight 45 kg ORDER PROCESSING MANAGER Delfina Trevino Work Phone: [facility] 04-17-2022 00:00-0400 70 1 Jaquelin Connell MD [facility]: [facility] 250 DO Work Phone: Comment on above: [id number] 04-16-2022 23:00-0400 Body height 152.4 cm ORDER PROCESSING MANAGERHuang Trevino Work Phone: [facility] 01-29-2022 17:20-0400 Body height 152.4 cm Estelita Sheridan Other [facility] [place] [place] Other 01-29-2022 17:20-0400 Body mass index (BMI) [Ratio] 19.49 kg/m2 Estelita Sheridan Other [facility] [place] [place] Other 01-29-2022 17:20-0400 Body temperature 98 [degF] Estelita Sheridan Other [facility] Other 01-29-2022 17:20-0400 Body weight 45.27 kg Estelita Sheridan Other [facility] Other 01-29-2022 17:20-0400 Diastolic blood pressure 77 mm[Hg] Estelita Sheridan Other [facility] Other 01-29-2022 17:20-0400 Respiratory rate 18 /min Estelita Sheridan Other [facility] Other 01-29-2022 17:20-0400 SaO2% (BldA) [Mass fraction] 97 % Estelita Sheridan Other [facility] Other 01-29-2022 17:20-0400 Systolic blood pressure 131 mm[Hg] Estelita Cornejomond Other [facility] Other Encounters Encounter Date Encounter Type Care Provider Facility Start: 06-20-2023 End: 06-21-2023 ambulatory Serge Rodriguez MD Facility:[facility] [place] Start: 05-23-2023 End: 05-24-2023 ambulatory Serge Rodriguez MD Facility:[facility] Start: 03-22-2023 End: 03-22-2023 ambulatory Joy Kaiser Other [facility] Other Start: 03-22-2023 Office outpatient ne w 45 minutes Joy Kaiser [facility] Start: 03-07-2023 End: 03-07-2023 ambulatory Delfina Trevino Facility:[facility] Start: 03-07-2023 End: 03-07-2023 ambulatory Delfina Carmelita Trevino Facility:[facility] Start: 03-07-2023 End: 03-07-2023 Patient encounter procedure IFTIKHAR Trevino Work Phone: [facility] Work Phone: Start: 03-07-2023 End: 03-07-2023 ambulatory ORDER PROCESSING MANAGER Delfina Trevino Work Phone: [facility] Work Phone: Start: 03-07-2023 End: 03-07-2023 Patient encounter procedure IFTIKHAR Trevino Work Phone: [facility] Work Phone: Start: 03-04-2023 NPVRFRL, Provider: Jaquelin Connell, Status: Pen, Time: 8:20 AM Jaquelin Connell MD Work Phone: -[facility] 600 DO Work Phone: Start: 03-04-2023 Office consultation new/estab patient 60 min Delfina Carmelita Belinda Work Phone: DM-Mzafkhcqgf-Aeankydc 250 DO Work Phone: Start: 03-04-2023 ambulatory Ms. Delfina Thomas Belinda Facility: Start: 03-03-2023 AUDIT Jaquelin de jesus MD Work Phone: -[facility] 600 DO Work Phone: Start: 02-28-2023 End: 02-28-2023 ambulatory Delfina Trevino Facility:[facility] Start: 02-28-2023 End: 02-28-2023 ambulatory ORDER PROCESSING MANAGER Delfina Mae Belinda Work Phone: [facility] Work Phone: Start: 02-28-2023 End: 02-28-2023 Patient encounter procedure ORDER PROCESSING MANAGER Delfina Belinda Work Phone: [facility] Work Phone: Start: 12-16-2022 End: 12-16-2022 Emergency department patient visit Delfina Trevino Facility:[facility] Start: 12-16-2022 End: 12-16-2022 Emergency department patient visit ORDER PROCESSING MANAGER Delfina Belinda Work Phone: [facility]Emergency Room Work Phone: Start: 09-22-2022 End: 09-22-2022 ambulatory Linda Fontanez Other [facility] [place] [place] Other Start: 09-22-2022 Office outpatient ne w 30 minutes Linda Fontanez [facility] Start: 06-16-2022 End: 10-05-2022 ambulatory Mark Avila Facility:[facility] Start: 05-12-2022 End: 05-12-2022 [facility] Start: 05-12-2022 End: 05-12-2022 Patient encounter procedure ORDER PROCESSING MANAGER Delfina Belinda Work Phone: [facility] [address] Start: 04-19-2022 Telephone encounter Jaquelin ha MD Work Phone: -[facility] 250 DO Work Phone: Start: 04-16-2022 End: 04-18-2022 ambulatory Delfina Trevino Facility:[facility] Start: 04-16-2022 End: 04-18-2022 Evaluation and management of inpatient ORDER PROCESSING MANAGER Delfinadaniel Trevino Work Phone: [facility] Start: 01-29-2022 End: 01-29-2022 ambulatory Estelita Sheridan Other [facility] [employer] [place] Other Start: 01-29-2022 Office outpatient vi sit 15 minutes Estelita Sheridan [facility] [place] Start: 01-15-2019 End: 01-15-2019 Patient encounter procedure [facility] Facility: Patient encounter status Delfina Mae Belinda Work Phone: QQ-Tvfmilxdff-Untqapas 250 DO Work Phone: Procedures Date Procedure Procedure Detail Performing Clinician Start: 03-07-2023 Dual energy X-ray absorptiometry ORDER PROCESSING MANAGER Delfina Trevino Work Phone: Start: 02-28-2023 Radionuclide myocard ial perfusion stress study ORDER PROCESSING MANAGER Delfina Trevino Work Phone: Start: 02-28-2023 Plain chest X-ray ORDER PROCESSING MANAGER Delfina Trevino Work Phone: Start: 12-16-2022 Plain X-ray of right hip ORDER PROCESSING MANAGER Delfina Trevino Work Phone: Start: 05-12-2022 X-ray of both ankles AP RN Delfina Belinda Work Phone: Start: 05-12-2022 X-ray of both feet ORDER PROCESSING MANAGER Delfina Belinda Work Phone: Start: 04-16-2022 Duplex scan of lower limb veins ORDER PROCESSING MANAGER Delfina Belinda Work Phone: Start: 04-16-2022 Plain chest X-ray ORDER PROCESSING MANAGER Delfina Belinda Work Phone: section Delfina Mae Belinda Work Phone: Excision of basal ce ll carcinoma Delfina Mae Belinda Work Phone: Operative procedure on foot Delfina Mae Belinda Work Phone: Operative procedure on wrist Delfina Mae Belinda Work Phone: SARS-CoV-2, Influenz a & RSV (PCR) ORDER PROCESSING MANAGER Delfina Belinda Work Phone: Tonsillectomy Delfina Mae Samantha barrera Work Phone: Urine culture ORDER PROCESSING MANAGERHuang Mathis Belinda Work Phone: Plan of Treatment Date Care Activity Detail Author Start: 02-28-2023 Radionuclide myocard ial perfusion stress study NM jony perf SPECT rest & str [facility] Start: 05-12-2022 Hemolytic complement CH50 level [facility] Work Phone: Start: 05-12-2022 [facility] Work Phone: Start: 05-12-2022 X-ray of both ankles XR ankle BI 2V [facility] Start: 05-12-2022 X-ray of both feet XR foot BI 2V [facility] Start: 05-12-2022 End: 05-12-2022 Patient encounter procedure Departed Clinical [facility] [address] Start: 04-18-2022 [facility] Work Phone: Start: 04-16-2022 Referral to Handhole Machine Operator [facility] Work Phone: Start: 04-16-2022 Referral to media director [facility] Work Phone: Start: 04-16-2022 Hospital admission [facility] Work Phone: Alkaline phosphatase - bone isoenzyme measurement [facility] Work Phone: Alkaline phosphatase [Enzymatic activity/volume] in Serum or Plasma [facility] Work Phone: Alkaline phosphatase isoenz panel - Serum or Plasma [facility] Work Phone: Blood chemistry [facility] Work Phone: Intestinal alkaline phosphatase measurement [facility] Work Phone: Patient Education Hip Pain (DC) [facility] Work Phone: Patient referral [facility] Work Phone: Immunizations Immunization Date Immunization Notes Care Provider Fa [facility] 08-03-2021 influenza, injectabl e, quadrivalent, contains preservative Jaquelin Connell MD Work Phone: [facility] 583 DO Work Phone: 05-14-2020 influenza, injectabl e, quadrivalent, contains preservative Jaquelin Connell MD Work Phone: [facility] 551 DO Work Phone: 2019 pneumococcal polysaccharide vaccine, 23 valent Jaquelin Connell MD Work Phone: [facility] 256 DO Work Phone: 08-01-2019 influenza, injectabl e, quadrivalent, contains preservative Jaquelin Connell MD Work Phone: [facility] 600 DO Work Phone: 06-06-2018 pneumococcal conjuga te vaccine, 13 valluke Connell MD Work Phone: [facility] 600 DO Work Phone: 05-29-2018 pneumococcal conjuga te vaccine, 13 valluke Connell MD Work Phone: [facility] 600 DO Work Phone: 07-23-2016 influenza, seasonal, injectable, preservative free Jaquelin Connell MD Work Phone: [facility] 600 DO Work Phone: 07-23-2016 pneumococcal polysaccharide vaccine, 23 valent Jaquelin Connell MD Work Phone: [facility] 600 DO Work Phone: 05-18-2014 tetanus and diphther ia toxoids, adsorbed, preservative free, for adult use (5 Lf of tetanus toxoid and 2 Lf of diphtheria toxoid) Jaquelin Connell MD Work Phone: [facility] 600 DO Work Phone: Payers Date Payer Category Payer Unknown [id number] 2022 Private Health Insurance [id number] 2022 Self-pay [id number] 2021 Medicare [id number] 2. [id number] 1959 Medicare [id number] 1950 Unknown [id number] 1950 Unknown [id number] [id number] 1950 Unknown [id number] [id number] 1950 Unknown [id number] [id number] 1950 Unknown [id number] [id number] Unknown Unknown [facility] [id number] 5 Unknown [id number] [id number] Unknown [id number] [id number] Unknown [id number] [id number] Unknown [id number] [id number] Unknown [id number] [id number] Unknown [id number] [id number] Unknown [id number] Social History Date Type Detail Facility Sex Assigned At [facility] Other Start: 04-17-2022 End: 12-16-2022 Tobacco smoking status AKIS Smoker (finding) [facility] Start: 1950 Sex Assigned At Female [facility] Occasional alcohol use Occasional alcohol use PD-Mkonquwzbe-Xibxupxi 250 DO Work Phone: Comment on above: 1 Pot of coffee amy y; 1 PPD; Goals Date Patient Goal Desired Activity /State Functional Status Date Assessment Result Facility 04-18-2022 Functional status Patient is Pro gressing Toward Baseline [facility] Work Phone: Mental Status Date Assessment Result Facility 04-18-2022 Cognitive function Cognitive Sta tus Patient at Baseline [facility] Work Phone: Clinical Notes 01-29-2022 to 09-22-2022 Note Date & Type Note Facility 09-22-2022 Evaluation note Encounter Date Diagnosis Assessment Notes Sep, Chronic kidney disease, stage IV (severe) (ICD-10 - N18.4) patient in the likely from long history of high-dose NSAID use. Serum creatinine 1.9 mg deciliter with GFR 26 as per LAB. UA showed trace protein and trace ketones. I asked the patient to avoid all NSAIDs completely. I explained the patient that she is at risk for CKD progression if she continues to take NSAIDs. I encouraged the patient to seek pain management consult. Encouraged the patient to contact Dr. Avila for further treatment peripheral arthritis. Blood pressure is well controlled. I will check renal ultrasound along with PTH, CBC calcium and phosphorus prior to next visit. I will follow-up with the patient in 4 months Sep, Hyperkalemia (ICD-10 - E87.5) Potassium was slightly high in April of last year. This is likely from worsening kidney function NSAID use. Encourage the patient to follow a low potassium diet and to continue Lasix. I will check potassium level prior to next visit Sep, Primary hypertension (ICD-10 - I10) Blood pressure seems well controlled. I will continue same blood pressure medication Sep, Rheumatoid arthritis with positive rheumatoid factor, involving unspecified site (ICD-10 - M05.9) Patient follows with Dr. Avila. Could not tolerate hydroxychloroq uine. I also patient to contact Dr. 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 I also patient to contact Dr. Avila for Krystexxa treatment. I asked the patient to avoid all NSAIDs due to advanced kidney disease [place] Other 08-07-2022 Consult note Author Jaquelin Connell [facility] April 18, 2022 9:21am Note Date/Time April 17, 2022 1:2 5pm [facility] [address] [place] [address] Cardiology Consult Note Signed Patient: Corie Courtney MR#: [id number] : 1950 Acct:[id number] Age/Sex: 71 / F Adm Date: 2 Loc: Room: [address] [place] [address] Type: ADM INOo Attending Dr: Parvin Batres MD Copies to: MD Delfina Block,ORDER PROCESSING MANAGER,[employer] Jaquelin Connell MD~ Cardiology HPI History of Present Illness Consult Date: 04/17/22 Reason for Consult: Cardiac consultation requested for evaluation of increased lower extremity edema HPI: Ms. Courtney is a 71 year old female with known history of chronic tobacco useand COPD presented with increasing lower extremity edema over the last couple ofmonths with some tenderness and pain in her ankles. She was noted to have evidence of volume overload. She did receive IV diuresis with improvement of his symptoms. Lower extremity Doppler showed no evidence of DVT. Patient report chronic shortness of breath unchanged from before she denies orthopnea orchest pain her troponin was elevated close to 450. Echocardiogram showed hyperdynamic LV systolic function with minor intraventricular cavity gradient. Patient edema has improved since admission. There is no previous history of coronary arteries congestive heart failure. No previous ischemic work-up noted Review of Systems Review of Systems All other systems reviewed & are negative unless noted below or in HPI Constitutional Constitutional: Reports fatigue Eyes Eyes: Reports system reviewed and no additional complaints, except as documented ENT Ears, Nose, Mouth, and Throat: Reports system reviewed and no additional complaints, except as documented Cardiovascular Cardiovascular: Reports system reviewed and no additional complaints, except as documented, Reports leg edema and Reports pedal edema Respiratory Respiratory: Reports dyspnea on exertion Gastrointestinal Gastrointestinal: Reports system reviewed and no additional complaints, except as documented Genitourinary Genitourinary: Reports system reviewed and no additional complaints, except as documented Musculoskeletal Musculoskeletal: Reports system reviewed and no additional complaints, except asdocumented Integumentary/Breasts Skin/Breast: Reports system reviewed and no additional complaints, except as documented Neurologic Neurologic: Reports system reviewed and no additional complaints, except as documented Psychiatric Psychiatric: Reports system reviewed and no additional complaints, except as documented Endocrine Endocrine: Reports system reviewed and no additional complaints, except as documented Hematologic/Lymphatic Hematologic/Lymphatic: Reports system reviewed and no additional complaints, except as documented Allergic/Immunologic Allergic/Immunologic: Reports system reviewed and no additional complaints, except as documented PMFSH Vaccinated for COVID-19?: No Medical History (Updated 04/17/22 @ 13:31 by Jaquelin Connell MD) Arthritis COPD (chronic obstructive pulmonary disease) CVA (cerebral vascular accident) slurried speach and difficulity with words Cyst in hand Depression History of skin cancer nose Hypertension Joint swelling Surgical History (Updated 04/16/22 @ 22:55 by Juan Cook, RN) History of History of surgery on right wrist S/P foot surgery, left from previous foot fracture. Pins and screws placed Family History (Updated 04/17/22 @ 03:06 by Juan Cook RN) Brother Rheumatoid aortitis Suicidal intent Mother Heart disease Social History Smoking Status: Current every day smoker Tobacco Type: cigarettes Substance Use Type: None Meds Medications and Allergies Allergies No Known Allergies Allergy (Verified 04/16/22 16:57) Home Medications lisinopril 10 mg tablet 10 mg PO DAILY 06/19/19 [History Confirmed 04/16/22] albuterol sulfate 1 amp inhalation Q4H PRN Wheezing 01/14/20 [History Confirmed 04/16/22] albuterol sulfate 90 mcg/actuation aerosol inhaler 2 puff inhalation Q4H PRN Wheezing 01/14/20 [History Confirmed 04/16/22] atorvastatin 20 mg tablet 20 mg PO DAILY 06/27/20 [History Confirmed 04/16/22] aspirin 81 mg tablet,delayed release 81 mg PO DAILY 30 days #30 tabs 06/28/20 [Rx Confirmed 04/16/22] cholecalciferol (vitamin D3) 25 mcg (1,000 unit) tablet (Vitamin D3) 25 mcg PO DAILY 04/16/22 [History Confirmed 04/16/22] glucosamine 750 vt-unjdci-byt 2-C 30 mg-D3 1,000 unit-jane 1 mg tablet (Ysrogiwrkkd-Jliglzyihxu-IVB + vitD) 1 tab PO DAILY 04/16/22 [History Confirmed 04/16/22] ibuprofen 200 mg tablet 800 mg PO BID PRN Pain 04/16/22 [History Confirmed 04/16/22] venlafaxine 75 mg capsule,extended release 24 hr 75 mg PO DAILY 04/17/22 [History Confirmed 04/17/22] Exam Physical Exam Vital Signs: Temp Pulse Resp BP Pulse Ox O2 Del Method 98.2 F 82 16 129/85 96 Room Air 04/17/22 11:46 04/17/22 11:46 04/17/22 11:46 04/17/22 11:46 04/17/22 11:46 04/17/22 11:46 Const General: cooperative, comfortable, no acute distress and well developed HEENT Head: atraumatic Mouth: oral mucosae normal Eyes General: appearance normal, both eyes and all related structures Pupils: PERRL Neck Neck: normal visual inspection, supple and no lymphadenopathy noted Neck mass: No Thyroid: thyroid normal Carotids: normal carotid upstroke Chest Chest palpation & inspection: normal inspection of the chest Resp Effort & Inspection: normal respiratory effort Auscultation: clear to auscultation bilaterally Cardio Palpation: normal PMI Rate: regular rate Rhythm: regular rhythm Heart Sounds: S1 normal, S2 normal and murmur systolic I/ and at the apex GI Palpation: soft and no hepatosplenomegaly Percussion: normal to percussion Auscultation: normal bowel sounds Skin General: no rashes or lesions noted and dry skin Neuro General: patient alert, patient awake, patient oriented x3, tone normal and moves all extremities Extrem General: full ROM, capillary refill normal and no clubbing, cyanosis or edema Psych Mental Status: mental status grossly normal Results Labs CBC & CMP: 04/17/22 06:25 04/17/22 06:25 Lab results: Cardiac Enzymes 04/16/22 04/16/22 Range/Units 18:10 18:10 AST 17 (10-42) U/L B-Natriuretic Peptide 118.0 H (5-100) pg/mL Lipids 04/17/22 04/17/22 Range/Units 06:25 09:25 Triglycerides 76 68 (35-149) mg/dL Cholesterol 136 L 134 L (140-200) mg/dL HDL Cholesterol 45 44 (35-85) mg/dL Cholesterol/HDL Ratio 3.0 3.0 (<5.0) CBC 04/16/22 04/17/22 Range/Units 18:10 06:25 RBC 3.69 4.05 (3.60-5.00) x10E6/uL Hgb 9.2 L 10.2 L (11.8-15.4) g/dL Hct 28.4 L 31.0 L (34.0-46.4) % Plt Count 696 H 849 H (150-450) x10E3/uL Neut # (Auto) 5.1 5.7 (1.8-7.7) x10E3/uL Lymph # (Auto) 2.8 1.9 (1.00-4.8) x10E3/uL [place] # (Auto) 0.8 0.6 (0.0-0.8) x10E3/uL Eos # (Auto) 0.3 0.4 (0.0-0.45) x10E3/uL Baso # (Auto) 0.1 0.1 (0.0-0.2) x10E3/uL Comprehensive Metabolic Panel 04/16/22 04/17/22 Range/Units 18:10 06:25 Sodium 131 L 133 L (136-146) mmol/L Potassium 4.3 4.3 (3.5-5.1) mmol/L Chloride 95 97 (95-114) mmol/L Carbon Dioxide 24.3 26.3 (22.0-30.0) mmol/L BUN 13 10 (9-23) mg/dL Creatinine 0.93 0.74 (0.44-1.03) mg/dL Glucose 92 89 (70-100) mg/dL Calcium 9.5 9.4 (8.2-10.2) mg/dL Direct Bilirubin < 0.1 (0.0-0.4) mg/dL Indirect Bilirubin TNP AST 17 (10-42) U/L ALT 17 (10-60) U/L Alkaline Phosphatase 85 (32-92) U/L Total Protein 6.5 (6.1-7.9) gm/dL Albumin 2.6 L (3.2-5.5) gm/dL Intake and Output 04/16/22 04/17/22 04/17/22 23:59 07:59 15:59 Intake Total 0 / 0 100 / 600 500 / 600 Output Total 177 / 1775 Balance 0 / 0 -1675 / -1175 500 / -1175 Intake: Oral 0 / 0 100 / 600 500 / 600 Output: Urine 1774 Other: # Voids 2 # Unmeasured Voids 1 3 # Bowel Movements 0 0 Weight 47.1 kg 46.1 kg Date of Last Bowel Movement 04/16/22 04/16/22 04/16/22 Patient Weight 04/17/22 23:59 Weight 46.1 kg Lab 04/16/22 18:10 PT 14.0 H INR 1.2 APTT 30.5 EKG Interpretations EKG Attestation EKG: I reviewed this ECG and interpreted as documented below: (Normal sinus rhythm without acute ST-T change) A&P - Cardiology (1) Acute diastolic heart failure: Assessment/Problem Details: Patient with clinical pictures of acute diastolic heart failure due to hypertensive heart disease and hyperdynamic LV systolic function Code(s): I50.31 - Acute diastolic (congestive) heart failure (2) Myocardial infarction type 2: Assessment/Problem Details: I suspect this is due to #1. The patient is also at increased risk of coronary artery disease Code(s): I21.A1 - Myocardial infarction type 2 (3) Tobacco abuse: Code(s): Z72.0 - Tobacco use (4) COPD (chronic obstructive pulmonary disease): Code(s): J44.9 - Chronic obstructive pulmonary disease, unspecified (5) History of stroke: Code(s): Z86.73 - Personal history of transient ischemic attack (TIA), and cerebral infarction without residual deficits (6) Hypertension: Code(s): I10 - Essential (primary) hypertension (7) Hyperlipidemia: Code(s): E78.5 - Hyperlipidemia, unspecified Plan 1. Mild diuresis 2. We will recommend to reduce the dose of lisinopril to 2.5 mg daily patient would benefit from long-term MANJIT inhibitor's considering her prior history of stroke 3. Uptitrate metoprolol to control blood pressure and slow heart rate close to the 60s I believe this will improve her diastolic heart failure 4. Continue aggressive approach risk factor modification 5. We will need outpatient ischemic evaluation to rule out underlying ischemic heart disease Documented By: Jaquelin Connell MD 04/17/22 1326 Signed By: <Electronically signed by MD Jaquelin Connell> 04/18/22 0999 [facility] Work Phone: [phone]) 103-311708-07-2022 Progress note Author Parvin Batres [facility] April 18, 2022 9:07am Note Date/Time April 18, 2022 9:0 2am [facility] [address] [place] [address] Hospitalist Progress Note Signed Patient: Corie Courtney MR#: [id number] : 1950 Acct:[id number] Age/Sex: 71 / F Adm Date: 2 Loc: 3T Room: [address] [place] [address] Type: ADM INOo Attending Dr: Parvin Batres MD Copies to: ~ Date of Service: 04/18/2022 Subjective Subjective Narrative: Ms. Courtney is a 71-year-old female who came to the hospital earlier today with a chief complaint of bilateral lower extremity swelling. She states this has been on and off phenomenon for the past 2 months but prior to that she denies any leg swelling. She denies any leg pain. She reports the leg swellingdoes get better in the morning after she wakes up. It is worse by the end of the day, though it does not happen every day she says. She also has a history of COPD and uses her Ventolin inhaler often, she still smokes 1/2 pack cigarettes a day, she has does take daily aspirin and takes it cholesterol medication for her hyperlipidemia. She does endorse some chest pain on and off but states she always thought it was related to her COPD. She denies any activechest pain today. She denies symptoms of orthopnea or PND. In the ED and ultrasound was performed on her bilateral lower extremities which was negative for DVT, on routine blood work her troponin was elevated at 314. She is also anemic at 9.2 which is well below her baseline of 14-15 based on ourrecords here with her last visit being October 09, 2020 interval history: Patient seen and examined, patient states that she has been feeling good, was complaining of some burning when she was urinating, patient states that she thinks her leg swelling is getting down, denies any chest pain, seen by cardiology, recommended outpatient evaluation Exam Physical Exam Vital Signs: Temp Pulse Resp BP Pulse Ox O2 Del Method 97.8 F 91 H 16 118/71 93 L Room Air 04/18/22 08:39 04/18/22 08:39 04/18/22 08:39 04/18/22 08:39 04/18/22 08:39 04/18/22 08:39 Narrative: Patient alert oriented in no acute distress Respiratory clear to auscultation bilaterally no wheezing or crackle heard Cardiovascular regular rate and rhythm, no murmur heard Abdomen soft nontender Extremities pedal edema Has pretty much resolved Neurological alert oriented, no focal motor neurological deficit present Objective Lab Results CBC & Chem 7: 04/18/22 05:56 04/18/22 05:56 Meds Allergies and Active Meds Allergies No Known Allergies Allergy (Verified 04/16/22 16:57) Active Meds: Active Medications Generic Name Dose Route Start Last Admin Trade Name Freq PRN Reason Stop Dose Admin Acetaminophen 650 mg 04/16/22 21:21 04/17/22 20:01 Acetaminophen 325 Mg Tablet PO 04/16/23 21:20 650 mg Q6HR PRN Administration Pain Scale 1 - 3 or fever Albuterol 2.5 mg 04/17/22 08:58 Albuterol Neb 2.5 Mg/3 Ml Vial.Neb INHALATION 04/17/23 08:57 Q4H PRN Wheezing Albuterol/Ipratropium 3 ml 04/16/22 21:21 04/17/22 19:01 Ipratropium/Albuterol 0.5-3 Mg 3 Ml Ampul.Neb INHALATION 04/17/23 07:59 3 ml QID.RESP PRN Administration wheezing Amoxicillin/Clavulanate Potassium 1 tab 04/18/22 09:00 Amoxicillin/Clav 875-125 Mg Tablet PO BID MERRY Aspirin 81 mg 04/17/22 09:00 04/18/22 08:41 Aspirin 81 Mg Tablet. PO 04/17/23 08:59 81 mg DAILY MERRY Administration Atorvastatin Calcium 20 mg 04/17/22 09:00 04/18/22 08:41 Atorvastatin 20 Mg Tablet PO 04/17/23 08:59 20 mg DAILY MERRY Administration Enoxaparin Sodium 40 mg 04/17/22 10:00 04/17/22 09:53 Enoxaparin 40 Mg/0.4 Ml Syringe SUBCUT 04/17/23 09:59 40 mg DAILY@10 MERRY Administration Furosemide 40 mg 04/18/22 08:00 04/18/22 08:41 Furosemide 40 Mg Tablet PO 08/07/23 07:59 40 mg DAILY.8A MERRY Administration Magnesium Sulfate 2 gm in 50 mls @ 25 mls/hr 04/16/22 21:21 Magnesium Sulf 2gm-*Swfi* IV 04/16/23 21:20 DAILY PRN Magnesium Level < 1.5 Labetalol HCl 5 mg 04/16/22 21:21 Labetalol 100 Mg/20 Ml Vial IV-PUSH 04/16/23 21:20 Q4H PRN Hypertension Lisinopril 2.5 mg 04/18/22 09:00 04/18/22 08:41 Lisinopril 2.5 Mg Tablet PO 04/18/23 08:59 2.5 mg DAILY MERRY Administration Metoprolol Tartrate 25 mg 04/17/22 21:00 04/18/22 08:41 Metoprolol Tartrate 25 Mg Tablet PO 04/17/23 20:59 25 mg BID MERRY Administration Ondansetron HCl 4 mg 04/16/22 21:21 Ondansetron 4 Mg/2 Ml Vial IV-PUSH 04/16/23 21:20 Q8H PRN Nausea And Vomiting Potassium Chloride 40 meq 04/16/22 21:21 Potassium Chloride Er 20 Meq Tab.Er.Prt PO 04/16/23 21:20 DAILY PRN Hypokalemia Potassium Chloride 20 meq 04/16/22 21:21 Potassium Chloride Er 20 Meq Tab.Er.Prt PO 04/16/23 21:20 DAILY PRN Hypokalemia Sodium Chloride 10 ml 04/17/22 09:03 Sodium Chloride 0.9 % 10 Ml Syringe IV-PUSH 04/17/23 09:02 PRN PRN Flush Venlafaxine HCl 75 mg 04/17/22 12:00 04/17/22 11:46 Venlafaxine Er 75 Mg Cap.Er.24h PO 04/17/23 11:59 75 mg DAILY@1200 MERRY Administration A&P - Hospitalist Assessment/Plan (1) Elevated troponin: Plan: ? Patient does endorse having on and off chest pain that she attributes to her COPD ? In the ED today, she does deny chest pain ? We will trend troponins overnight ? If they continue to trend up, will consult cardiology ? TTE in the morning, I do suspect this patient has undiagnosed right heart failure ?Echo from June 2020 shows an EF greater than 70%, I do not see any documentation of her RVSP on this echo ?Lipid panel and A1c in the morning for risk stratification (2) Elevated blood pressure reading: Plan: ? Continue home blood pressure medication lisinopril 10 mg (3) Leg swelling: Plan: ? TTE in the morning ?Bilateral lower extremity duplex was negative for DVT ? Suspect for undiagnosed right heart failure ? Patient is Lasix na?ve and will receive 1 dose of 20 mg IV Lasix tonight, willcontinue on a as needed basis. Plan Patient is 71-year-old female who presented with worsening pedal edema, also complains of some orthopnea and dyspnea on exertion, extensive history of tobacco abuse, smokes 1/2 pack of cigarette a day, patient was given a dose of IV Lasix in the ER, her pedal edema is much better,Sodium is dropped to 129 likely secondary to underlying Lasix, will decrease Lasix to 20 p.o., seen by cardiology recommended ischemic evaluation as outpatient, patient found to have UTI, will give Augmentin, final cultures pending, Patient does have thrombocytosis, which is likely reactive, recommended to follow-up with hematology oncology as outpatient On Lopressor 9 lisinopril 2.5, Will discharge once cleared by cardiology DVT prophylaxis Documented By: Parvin Batres MD 04/18/22 0901 Signed By: <Electronically signed by Parvin Batres MD> 04/18/22 0907 [facility] Work Phone: [phone]) 917-537208-06-2022 Progress note Author Parvin Batres [facility] April 17, 2022 9:03am Note Date/Time April 17, 2022 8:5 6am [facility] [address] [place] [address] Hospitalist Progress Note Signed Patient: Corie Courtney MR#: [id number] : 1950 Acct:[id number] Age/Sex: 71 / F Adm Date: 2 Loc: Room: [address] [place] [address] Type: ADM INOo Attending Dr: Parvin Batres MD Copies to: ~ Date of Service: 04/17/2022 Subjective Subjective Narrative: Ms. Courtney is a 71-year-old female who came to the hospital earlier today with a chief complaint of bilateral lower extremity swelling. She states this has been on and off phenomenon for the past 2 months but prior to that she denies any leg swelling. She denies any leg pain. She reports the leg swellingdoes get better in the morning after she wakes up. It is worse by the end of the day, though it does not happen every day she says. She also has a history of COPD and uses her Ventolin inhaler often, she still smokes 1/2 pack cigarettes a day, she has does take daily aspirin and takes it cholesterol medication for her hyperlipidemia. She does endorse some chest pain on and off but states she always thought it was related to her COPD. She denies any activechest pain today. She denies symptoms of orthopnea or PND. In the ED and ultrasound was performed on her bilateral lower extremities which was negative for DVT, on routine blood work her troponin was elevated at 314. She is also anemic at 9.2 which is well below her baseline of 14-15 based on ourrecords here with her last visit being October 09, 2020 interval history: Patient seen and examined, patient was sitting on the chair comfortably, patientstates that she is always short of breath, smokes 1 and half pack of cigarette aday, patient also reported orthopnea, states that she is not able to sleep flat in bed, has to elevate bed to sleep well, patient states that if she sleeps thatshe starts coughing, denies any history of CAD in the past, denies any chest pain, troponin is 425, Exam Physical Exam Vital Signs: Temp Pulse Resp BP Pulse Ox O2 Del Method 98.2 F 103 H 16 120/85 93 L Room Air 04/17/22 07:40 04/17/22 07:40 04/17/22 07:40 04/17/22 07:40 04/17/22 07:40 04/17/22 07:40 Narrative: Patient alert oriented in no acute distress Respiratory clear to auscultation bilaterally no wheezing or crackle heard Cardiovascular regular rate and rhythm, no murmur heard Abdomen soft nontender Extremities pedal edema present Neurological alert oriented, no focal motor neurological deficit present Objective Lab Results CBC & Chem 7: 04/17/22 06:25 04/17/22 06:25 Microbiology Results Microbiology 04/16/22 20:32 Nasopharyngeal SARS-CoV-2, Influenza & RSV (PCR) - Final Meds Allergies and Active Meds Allergies No Known Allergies Allergy (Verified 04/16/22 16:57) Active Meds: Active Medications Generic Name Dose Route Start Last Admin Trade Name Riccardo PRN Reason Stop Dose Admin Acetaminophen 650 mg 04/16/22 21:21 Acetaminophen 325 Mg Tablet PO 04/16/23 21:20 Q6HR PRN Pain Scale 1 - 3 or fever Albuterol/Ipratropium 3 ml 04/16/22 21:21 Ipratropium/Albuterol 0.5-3 Mg 3 Ml Ampul.Neb INHALATION 04/17/23 07:59 QID.RESP PRN wheezing Enoxaparin Sodium 40 mg 04/17/22 10:00 Enoxaparin 40 Mg/0.4 Ml Syringe SUBCUT 04/17/23 09:59 DAILY@10 MERRY Magnesium Sulfate 2 gm in 50 mls @ 25 mls/hr 04/16/22 21:21 Magnesium Sulf 2gm-*Swfi* IV 04/16/23 21:20 DAILY PRN Magnesium Level < 1.5 Labetalol HCl 5 mg 04/16/22 21:21 Labetalol 100 Mg/20 Ml Vial IV-PUSH 04/16/23 21:20 Q4H PRN Hypertension Ondansetron HCl 4 mg 04/16/22 21:21 Ondansetron 4 Mg/2 Ml Vial IV-PUSH 04/16/23 21:20 Q8H PRN Nausea And Vomiting Potassium Chloride 40 meq 04/16/22 21:21 Potassium Chloride Er 20 Meq Tab.Er.Prt PO 04/16/23 21:20 DAILY PRN Hypokalemia Potassium Chloride 20 meq 04/16/22 21:21 Potassium Chloride Er 20 Meq Tab.Er.Prt PO 04/16/23 21:20 DAILY PRN Hypokalemia A&P - Hospitalist Assessment/Plan (1) Elevated troponin: Plan: ? Patient does endorse having on and off chest pain that she attributes to her COPD ? In the ED today, she does deny chest pain ? We will trend troponins overnight ? If they continue to trend up, will consult cardiology ? TTE in the morning, I do suspect this patient has undiagnosed right heart failure ?Echo from June 2020 shows an EF greater than 70%, I do not see any documentation of her RVSP on this echo ?Lipid panel and A1c in the morning for risk stratification (2) Elevated blood pressure reading: Plan: ? Continue home blood pressure medication lisinopril 10 mg (3) Leg swelling: Plan: ? TTE in the morning ?Bilateral lower extremity duplex was negative for DVT ? Suspect for undiagnosed right heart failure ? Patient is Lasix na?ve and will receive 1 dose of 20 mg IV Lasix tonight, willcontinue on a as needed basis. Plan Patient is 71-year-old female who presented with worsening pedal edema, also complains of some orthopnea and dyspnea on exertion, extensive history of tobacco abuse, smokes 1/2 pack of cigarette a day, patient was given a dose of IV Lasix in the ER, will give p.o. Lasix, BNP is 118, patient not on any supplemental oxygen, follow-up with echocardiogram, troponin elevation to 14, patient currently denies any chest pain, cardiology consulted Patient also has a thrombocytosis with a platelet count of 800, continue to monitor likely reactive, recommend patient to follow-up with hematology oncologyas outpatient, Will start aspirin Lipitor and low-dose Lopressor DVT prophylaxis Documented By: Parvin Batres MD 04/17/22 0855 Signed By: <Electronically signed by Parvin Batres MD> 04/17/22 0903 [facility] Work Phone: 1(121) 882-998008-05-2022 History and physical note Author Josué Alvarez [facility] April 16, 2022 9:42pm Note Date/Time April 16, 2022 9:4 0pm [facility] [address] [place] [address] Hospitalist H&P Signed Patient: Corie Courtney MR#: [id number] : 1950 Acct:[id number] Age/Sex: 71 / F Adm Date: 2 Loc: Room: [address] [place] [address] Type: ADM INOo Attending Dr: Josué Alvarez DO Copies to: Delfina Trevino APRN,[employer] Josué Alvarez, DO~ HPI DATE OF EXAMINATION: 04/16/22 CHIEF COMPLAINT: leg swelling HISTORY OF PRESENT ILLNESS: Ms. Courtney is a 71-year-old female who came to the hospital earlier today with a chief complaint of bilateral lower extremity swelling. She states this has been on and off phenomenon for the past 2 months but prior to that she denies any leg swelling. She denies any leg pain. She reports the leg swellingdoes get better in the morning after she wakes up. It is worse by the end of the day, though it does not happen every day she says. She also has a history of COPD and uses her Ventolin inhaler often, she still smokes 1/2 pack cigarettes a day, she has does take daily aspirin and takes it cholesterol medication for her hyperlipidemia. She does endorse some chest pain on and off but states she always thought it was related to her COPD. She denies any activechest pain today. She denies symptoms of orthopnea or PND. In the ED and ultrasound was performed on her bilateral lower extremities which was negative for DVT, on routine blood work her troponin was elevated at 314. She is also anemic at 9.2 which is well below her baseline of 14-15 based on ourrecords here with her last visit being October 09, 2020 Review of Systems Review of Systems Review of systems: Constitutional: Denies body aches, chills, fatigue Denies any blurry or double vision CV: Denies active chest pain, irregular rhythm, endorses shortness of breath, leg swelling Respiratory, denies shortness of breath, cough, wheeze, pain with deep inspiration GI: Denies any nausea, vomiting, diarrhea, constipation, changes in bowel habitsoverall MSK: Denies joint pain, yes to lower extremity swelling up to the ankle, denies back pain, denies weakness Neurologic: Denies confusion, denies dizziness, denies headaches, denies lack coordination Psychiatric: Denies depression, denies behavioral changes Hematology: Denies easy bruising, denies easy bleeding PMFSH Vaccinated for COVID-19?: No Medical History (Updated 04/16/22 @ 21:37 by Josué Alvarez DO) COPD (chronic obstructive pulmonary disease) CVA (cerebral vascular accident) Depression History of skin cancer nose Hypertension Surgical History History of History of surgery on right wrist Family History Other No significant family history Social History Smoking Status: Current every day smoker Tobacco Type: cigarettes Substance Use Type: None Substance Abuse Comment: social Meds Medications and Allergies Allergies No Known Allergies Allergy (Verified 04/16/22 16:57) Home Medications lisinopril 10 mg tablet 10 mg PO DAILY 06/19/19 [History Confirmed 04/16/22] albuterol sulfate 1 amp inhalation Q4H PRN Wheezing 01/14/20 [History Confirmed 04/16/22] albuterol sulfate 90 mcg/actuation aerosol inhaler 2 puff inhalation Q4H PRN Wheezing 01/14/20 [History Confirmed 04/16/22] atorvastatin 20 mg tablet 20 mg PO DAILY 06/27/20 [History Confirmed 04/16/22] aspirin 81 mg tablet,delayed release 81 mg PO DAILY 30 days #30 tabs 06/28/20 [Rx Confirmed 04/16/22] cholecalciferol (vitamin D3) 25 mcg (1,000 unit) tablet (Vitamin D3) 25 mcg PO DAILY 04/16/22 [History Confirmed 04/16/22] diclofenac sodium 75 mg tablet,delayed release 75 mg PO DAILY 04/16/22 [History Confirmed 04/16/22] Exam Physical Exam Vital Signs: Temp Pulse Resp BP Pulse Ox O2 Del Method 98.6 F 100 H 18 144/70 H 97 Room Air 04/16/22 17:00 04/16/22 17:00 04/16/22 17:00 04/16/22 17:00 04/16/22 17:00 04/16/22 17:00 Narrative: General: Awake alert, no acute distress. Sitting up in the bed, son was in the room HEENT: head atraumatic, normocephalic, moist mucous membranes, normal nose and ears, no throat lesions, normal conjunctiva Neck: supple no masses, no lymphadenopathy CVS: regular rate and rhythm, no murmurs or gallops Respiratory: clear to auscultation bilaterally, bilateral expiratory wheezes, nocrackles, symmetric expansion GI: soft, nondistended, nontender, positive bowel sounds with no organomegaly Extremity: moves all extremities, no restrictions of movements, no calf tenderness, +3 pitting edema up to the malleoli, there is a large ring of indentation from the patient's slippers on the edema. Pulses are detected with Doppler, axes are marked on her feet where the dorsalis pedis. Neuro: AOx3, CN II-VII intact. Moves all extremities in all planes of motion. Skin: dry, intact no rashes or lesions Results Lab Results Labs: Laboratory Last Values Corrected WBC 9.1 X10E3/uL (3.8-11.6) 04/16/22 18:10 Uncorrected WBC Count 9.1 x10E3/uL (4.5-11.0) 04/16/22 18:10 RBC 3.69 x10E6/uL (3.60-5.00) 04/16/22 18:10 Hgb 9.2 g/dL (11.8-15.4) L 04/16/22 18:10 Hct 28.4 % (34.0-46.4) L 04/16/22 18:10 MCV 77.0 fl (80-100) L 04/16/22 18:10 MCH 24.9 pg (24.7-34.3) 04/16/22 18:10 MCHC 32.4 g/dL (32.0-35.0) 04/16/22 18:10 RDW 17.1 % (11.9-15.3) H 04/16/22 18:10 Plt Count 696 x10E3/uL (150-450) H 04/16/22 18:10 MPV 6.9 fl (6.3-10.7) 04/16/22 18:10 Neut % (Auto) 55.9 % (.) 04/16/22 18:10 Lymph % (Auto) 30.4 % (.) 04/16/22 18:10 [place] % (Auto) 8.6 % (.) 04/16/22 18:10 Eos % (Auto) 3.7 % (.) 04/16/22 18:10 Baso % (Auto) 1.4 % (.) 04/16/22 18:10 Neut # (Auto) 5.1 x10E3/uL (1.8-7.7) 04/16/22 18:10 Lymph # (Auto) 2.8 x10E3/uL (1.00-4.8) 04/16/22 18:10 [place] # (Auto) 0.8 x10E3/uL (0.0-0.8) 04/16/22 18:10 Eos # (Auto) 0.3 x10E3/uL (0.0-0.45) 04/16/22 18:10 Baso # (Auto) 0.1 x10E3/uL (0.0-0.2) 04/16/22 18:10 Nucleated RBC % (auto) 0.0 % (0-0.5) 04/16/22 18:10 PT 14.0 Seconds (9.0-12.9) H 04/16/22 18:10 INR 1.2 04/16/22 18:10 APTT 30.5 Seconds (25.1-36.5) 04/16/22 18:10 PHA Creatinine Clear 41.01 04/16/22 18:10 Sodium 131 mmol/L (136-146) L 04/16/22 18:10 Potassium 4.3 mmol/L (3.5-5.1) 04/16/22 18:10 Chloride 95 mmol/L (95-114) 04/16/22 18:10 Carbon Dioxide 24.3 mmol/L (22.0-30.0) 04/16/22 18:10 BUN 13 mg/dL (9-23) 04/16/22 18:10 Creatinine 0.93 mg/dL (0.44-1.03) 04/16/22 18:10 Est GFR ( Amer) > 60 mL/Min 04/16/22 18:10 Est GFR (Non-Af Amer) 60 mL/Min 04/16/22 18:10 Glucose 92 mg/dL (70-100) 04/16/22 18:10 Calcium 9.5 mg/dL (8.2-10.2) 04/16/22 18:10 Total Bilirubin 0.4 mg/dL (0.3-1.2) 04/16/22 18:10 Direct Bilirubin < 0.1 mg/dL (0.0-0.4) 04/16/22 18:10 Indirect Bilirubin TNP 04/16/22 18:10 AST 17 U/L (10-42) 04/16/22 18:10 ALT 17 U/L (10-60) 04/16/22 18:10 Alkaline Phosphatase 85 U/L (32-92) 04/16/22 18:10 Troponin I High Sens 314 pg/mL (0-15) H* 04/16/22 18:10 B-Natriuretic Peptide 118.0 pg/mL (5-100) H 04/16/22 18:10 Total Protein 6.5 gm/dL (6.1-7.9) 04/16/22 18:10 Albumin 2.6 gm/dL (3.2-5.5) L 04/16/22 18:10 Globulin 3.9 gm/dL 04/16/22 18:10 Albumin/Globulin Ratio 0.7 04/16/22 18:10 SARS-CoV-2 Rap RNA(RT-PCR) Negative (Negative) 04/16/22 20:32 Microbiology Results Micro: Microbiology - Results from entire visit 04/16/22 20:32 Nasopharyngeal SARS-CoV-2, Influenza & RSV (PCR) - Final A&P - Hospitalist Assessment/Plan (1) Elevated troponin: Plan: ? Patient does endorse having on and off chest pain that she attributes to her COPD ? In the ED today, she does deny chest pain ? We will trend troponins overnight ? If they continue to trend up, will consult cardiology ? TTE in the morning, I do suspect this patient has undiagnosed right heart failure ?Echo from June 2020 shows an EF greater than 70%, I do not see any documentation of her RVSP on this echo ?Lipid panel and A1c in the morning for risk stratification (2) Elevated blood pressure reading: Plan: ? Continue home blood pressure medication lisinopril 10 mg (3) Leg swelling: Plan: ? TTE in the morning ?Bilateral lower extremity duplex was negative for DVT ? Suspect for undiagnosed right heart failure ? Patient is Lasix na?ve and will receive 1 dose of 20 mg IV Lasix tonight, willcontinue on a as needed basis. Plan ? Remainder of home medications continued ? Physical and Occupational Therapy consulted ? Lovenox for DVT prophylaxis ? Cardiac diet Documented By: Josué Alvarez DO 04/16/222129 Signed By: <Electronically signed by Josué Alvarez DO> 04/16/222141 [facility] Work Phone: [phone] 278-975206-23-2022 History of Present illness Narrative* The patient is here for cardiovascular evaluation for preoperative risk assessment. She is a 72-year-old whom I seen last year for evaluation for what appeared to be diastolic heart failure. Her medication was adjusted. She was advised to have a stress test but never showed up for that or follow-up. She was recently seen by orthopedic surgery because of hip pain and she is scheduled to undergo hip surgery. She was scheduled by her family physician for a stress test which turned to be negative. Her previous echocardiogram showed hyperdynamic LV systolic function with minimal intracavitary obstr uction. The patient admits to very limited exercise tolerance due to hip pain. She does report somemild shortness of breath due to her tobacco use. * Assessment * 1. Dyspnea appears to be multifactorial related to chronic obstructive lung disease, tobacco use and component of diastolic heart failure * 2. Chronic diastolic heart failure with previously documented hyperdynamic LV systolic function markedly improved with the adjustment of medication and uptitrating beta-herber. The patient is compensated now * 3. Hypertension controlled * 4. Hyperlipidemia atorvastatin * 5. Tobacco use and COPD * 7. Preoperative risk assessment for hip surgery based on recent testing including negative stress test and normal LV systolic function I believe her operative risk is acceptable cardiac esparza and she can proceed with surgery. Operative risk cardiac-esparza reviewed with patient and her son they both und erstood and agreed * Plan * 1. As indicated above based on ACC/AHA guidelines and based on recent diagnostic testing the patient operative risk is acceptable and she can proceed with her surgery * 2. Operative risk reviewed with patient and her son they both understood and agreed * 3. The patient was advised not to smoke * 4. Patient will follow-up on as-needed basis on her request RA-Wwutegcert-Uywuztdw 250 DO Work Phone: [phone]) 322-453005-20-2022 Evaluation note* Encounter Date Diagnosis Assessment Notes Treatment Notes Treatment Clinical Notes January, Other chronic pain (ICD-10 - G89.29) January, Effusion, left knee (ICD-10 - M25.462) Wear the Manjit wrap for comfort and compression. Take the Medrol dose pack as prescribed until gone. Continue home medications as prescribed. Follow-up with your family physician as scheduled on February 10 January, Pain in left knee (ICD-10 - M25.562) January, Synovial cyst of left knee (ICD-10 - M71.22) January, Other Ness's cyst material was printed [place] Other Chief complaint Narrative - ReportedCORIE COURTNEY is being seen for a consultation for POC.ZO-Ghhyfjazjb-Pbpyjthw 250 DO Work Phone: Consult note Author Jaquelin Connell [facility] April 18, 2022 9:21am Note Date/Time April 17, 2022 1:2 5pm [facility] [address] [place] [address] Cardiology Consult Note Signed Patient: Corie Courtney MR#: [id number] : 1950 Acct:[id number] Age/Sex: 71 / F Adm Date: 2 Loc: Room: [address] [place] [address] Type: ADM INOo Attending Dr: Parvin Batres MD Copies to: MD Delfina Block,ORDER PROCESSING MANAGER,[employer] ATTORNEY Jaquelin Connell MD~ Cardiology HPI History of Present Illness Consult Date: 04/17/22 Reason for Consult: Cardiac consultation requested for evaluation of increased lower extremity edema HPI: Ms. Courtney is a 71 year old female with known history of chronic tobacco useand COPD presented with increasing lower extremity edema over the last couple ofmonths with some tenderness and pain in her ankles. She was noted to have evidence of volume overload. She did receive IV diuresis with improvement of his symptoms. Lower extremity Doppler showed no evidence of DVT. Patient report chronic shortness of breath unchanged from before she denies orthopnea orchest pain her troponin was elevated close to 450. Echocardiogram showed hyperdynamic LV systolic function with minor intraventricular cavity gradient. Patient edema has improved since admission. There is no previous history of coronary arteries congestive heart failure. No previous ischemic work-up noted Review of Systems Review of Systems All other systems reviewed & are negative unless noted below or in HPI Constitutional Constitutional: Reports fatigue Eyes Eyes: Reports system reviewed and no additional complaints, except as documented ENT Ears, Nose, Mouth, and Throat: Reports system reviewed and no additional complaints, except as documented Cardiovascular Cardiovascular: Reports system reviewed and no additional complaints, except as documented, Reports leg edema and Reports pedal edema Respiratory Respiratory: Reports dyspnea on exertion Gastrointestinal Gastrointestinal: Reports system reviewed and no additional complaints, except as documented Genitourinary Genitourinary: Reports system reviewed and no additional complaints, except as documented Musculoskeletal Musculoskeletal: Reports system reviewed and no additional complaints, except asdocumented Integumentary/Breasts Skin/Breast: Reports system reviewed and no additional complaints, except as documented Neurologic Neurologic: Reports system reviewed and no additional complaints, except as documented Psychiatric Psychiatric: Reports system reviewed and no additional complaints, except as documented Endocrine Endocrine: Reports system reviewed and no additional complaints, except as documented Hematologic/Lymphatic Hematologic/Lymphatic: Reports system reviewed and no additional complaints, except as documented Allergic/Immunologic Allergic/Immunologic: Reports system reviewed and no additional complaints, except as documented PMFSH Vaccinated for COVID-19?: No Medical History (Updated 04/17/22 @ 13:31 by Jaquelin Connell MD) Arthritis COPD (chronic obstructive pulmonary disease) CVA (cerebral vascular accident) slurried speach and difficulity with words Cyst in hand Depression History of skin cancer nose Hypertension Joint swelling Surgical History (Updated 04/16/22 @ 22:55 by Juan Cook RN) History of History of surgery on right wrist S/P foot surgery, left from previous foot fracture. Pins and screws placed Family History (Updated 04/17/22 @ 03:06 by Juan Cook RN) Brother Rheumatoid aortitis Suicidal intent Mother Heart disease Social History Smoking Status: Current every day smoker Tobacco Type: cigarettes Substance Use Type: None Meds Medications and Allergies Allergies No Known Allergies Allergy (Verified 04/16/22 16:57) Home Medications lisinopril 10 mg tablet 10 mg PO DAILY 06/19/19 [History Confirmed 04/16/22] albuterol sulfate 1 amp inhalation Q4H PRN Wheezing 01/14/20 [History Confirmed 04/16/22] albuterol sulfate 90 mcg/actuation aerosol inhaler 2 puff inhalation Q4H PRN Wheezing 01/14/20 [History Confirmed 04/16/22] atorvastatin 20 mg tablet 20 mg PO DAILY 06/27/20 [History Confirmed 04/16/22] aspirin 81 mg tablet,delayed release 81 mg PO DAILY 30 days #30 tabs 06/28/20 [Rx Confirmed 04/16/22] cholecalciferol (vitamin D3) 25 mcg (1,000 unit) tablet (Vitamin D3) 25 mcg PO DAILY 04/16/22 [History Confirmed 04/16/22] glucosamine 750 vp-lebqih-zyy 2-C 30 mg-D3 1,000 unit-jane 1 mg tablet (Rlybtoozxnu-Bkdmckbccof-EVL + vitD) 1 tab PO DAILY 04/16/22 [History Confirmed 04/16/22] ibuprofen 200 mg tablet 800 mg PO BID PRN Pain 04/16/22 [History Confirmed 04/16/22] venlafaxine 75 mg capsule,extended release 24 hr 75 mg PO DAILY 04/17/22 [History Confirmed 04/17/22] Exam Physical Exam Vital Signs: Temp Pulse Resp BP Pulse Ox O2 Del Method 98.2 F 82 16 129/85 96 Room Air 04/17/22 11:46 04/17/22 11:46 04/17/22 11:46 04/17/22 11:46 04/17/22 11:46 04/17/22 11:46 Const General: cooperative, comfortable, no acute distress and well developed HEENT Head: atraumatic Mouth: oral mucosae normal Eyes General: appearance normal, both eyes and all related structures Pupils: PERRL Neck Neck: normal visual inspection, supple and no lymphadenopathy noted Neck mass: No Thyroid: thyroid normal Carotids: normal carotid upstroke Chest Chest palpation & inspection: normal inspection of the chest Resp Effort & Inspection: normal respiratory effort Auscultation: clear to auscultation bilaterally Cardio Palpation: normal PMI Rate: regular rate Rhythm: regular rhythm Heart Sounds: S1 normal, S2 normal and murmur systolic I/ and at the apex GI Palpation: soft and no hepatosplenomegaly Percussion: normal to percussion Auscultation: normal bowel sounds Skin General: no rashes or lesions noted and dry skin Neuro General: patient alert, patient awake, patient oriented x3, tone normal and moves all extremities Extrem General: full ROM, capillary refill normal and no clubbing, cyanosis or edema Psych Mental Status: mental status grossly normal Results Labs CBC & CMP: 04/17/22 06:25 04/17/22 06:25 Lab results: Cardiac Enzymes 04/16/22 04/16/22 Range/Units 18:10 18:10 AST 17 (10-42) U/L B-Natriuretic Peptide 118.0 H (5-100) pg/mL Lipids 04/17/22 04/17/22 Range/Units 06:25 09:25 Triglycerides 76 68 (35-149) mg/dL Cholesterol 136 L 134 L (140-200) mg/dL HDL Cholesterol 45 44 (35-85) mg/dL Cholesterol/HDL Ratio 3.0 3.0 (<5.0) CBC 04/16/22 04/17/22 Range/Units 18:10 06:25 RBC 3.69 4.05 (3.60-5.00) x10E6/uL Hgb 9.2 L 10.2 L (11.8-15.4) g/dL Hct 28.4 L 31.0 L (34.0-46.4) % Plt Count 696 H 849 H (150-450) x10E3/uL Neut # (Auto) 5.1 5.7 (1.8-7.7) x10E3/uL Lymph # (Auto) 2.8 1.9 (1.00-4.8) x10E3/uL [place] # (Auto) 0.8 0.6 (0.0-0.8) x10E3/uL Eos # (Auto) 0.3 0.4 (0.0-0.45) x10E3/uL Baso # (Auto) 0.1 0.1 (0.0-0.2) x10E3/uL Comprehensive Metabolic Panel 04/16/22 04/17/22 Range/Units 18:10 06:25 Sodium 131 L 133 L (136-146) mmol/L Potassium 4.3 4.3 (3.5-5.1) mmol/L Chloride 95 97 (95-114) mmol/L Carbon Dioxide 24.3 26.3 (22.0-30.0) mmol/L BUN 13 10 (9-23) mg/dL Creatinine 0.93 0.74 (0.44-1.03) mg/dL Glucose 92 89 (70-100) mg/dL Calcium 9.5 9.4 (8.2-10.2) mg/dL Direct Bilirubin < 0.1 (0.0-0.4) mg/dL Indirect Bilirubin TNP AST 17 (10-42) U/L ALT 17 (10-60) U/L Alkaline Phosphatase 85 (32-92) U/L Total Protein 6.5 (6.1-7.9) gm/dL Albumin 2.6 L (3.2-5.5) gm/dL Intake and Output 04/16/22 04/17/22 04/17/22 23:59 07:59 15:59 Intake Total 0 / 0 100 / 600 500 / 600 Output Total 1775 / 1775 Balance 0 / 0 -1675 / -1175 500 / -1175 Intake: Oral 0 / 0 100 / 600 500 / 600 Output: Urine 1775 / 1775 Other: # Voids 2 # Unmeasured Voids 1 3 # Bowel Movements 0 0 Weight 47.1 kg 46.1 kg Date of Last Bowel Movement 04/16/22 04/16/22 04/16/22 Patient Weight 04/17/22 23:59 Weight 46.1 kg Lab 04/16/22 18:10 PT 14.0 H INR 1.2 APTT 30.5 EKG Interpretations EKG Attestation EKG: I reviewed this ECG and interpreted as documented below: (Normal sinus rhythm without acute ST-T change) A&P - Cardiology (1) Acute diastolic heart failure: Assessment/Problem Details: Patient with clinical pictures of acute diastolic heart failure due to hypertensive heart disease and hyperdynamic LV systolic function Code(s): I50.31 - Acute diastolic (congestive) heart failure (2) Myocardial infarction type 2: Assessment/Problem Details: I suspect this is due to #1. The patient is also at increased risk of coronary artery disease Code(s): I21.A1 - Myocardial infarction type 2 (3) Tobacco abuse: Code(s): Z72.0 - Tobacco use (4) COPD (chronic obstructive pulmonary disease): Code(s): J44.9 - Chronic obstructive pulmonary disease, unspecified (5) History of stroke: Code(s): Z86.73 - Personal history of transient ischemic attack (TIA), and cerebral infarction without residual deficits (6) Hypertension: Code(s): I10 - Essential (primary) hypertension (7) Hyperlipidemia: Code(s): E78.5 - Hyperlipidemia, unspecified Plan 1. Mild diuresis 2. We will recommend to reduce the dose of lisinopril to 2.5 mg daily patient would benefit from long-term MANJIT inhibitor's considering her prior history of stroke 3. Uptitrate metoprolol to control blood pressure and slow heart rate close to the 60s I believe this will improve her diastolic heart failure 4. Continue aggressive approach risk factor modification 5. We will need outpatient ischemic evaluation to rule out underlying ischemic heart disease Documented By: Jaquelin Connell MD 04/17/22 1324 Signed By: <Electronically signed by MD Jauqelin Connell> 04/18/22 0921 [facility] Work Phone: Discharge summary Author Parvin Batres [facility] April 18, 2022 5:54pm Note Date/Time April 18, 2022 5:5 4pm [facility] [address] [place] [address] Discharge Summary Signed Patient: Corie Courtney MR#: [id number] : 1950 Acct:[id number] Age/Sex: 71 / F Adm Date: 2 Loc: Room: [address] [place] [address]: Parvin Batres MD Copies to: MD Delfina Block,ORDER PROCESSING MANAGER,[employer] [place] ATTORNEY~ Providers Date of Discharge: 04/18/22 Discharging Provider: Parvin Batres Primary Care Provider: Delfina Trevino Consults: 04/16/22 21:29 Consult to Occupational Therapy Routine Consult to Physical Therapy Routine 04/16/22 21:47 Consult to Cardiology Routine 04/16/22 23:05 Consult to Case Management Routine Discharge Diagnosis (1) Acute diastolic heart failure: (2) Myocardial infarction type 2: (3) Tobacco abuse: (4) COPD (chronic obstructive pulmonary disease): (5) History of stroke: (6) Hypertension: (7) Hyperlipidemia: Final Diagnosis Final Discharge Diagnosis: As above Summary Hospital Course Hospital course: Patient is 71-year-old female history of tobacco abuse, states that she smokes 1-1 and half pack of cigarette every day, presented to the ER with worsening lower extremity edema, patient BNP was elevated, labs showed troponin elevation at plateaued at 400, patient denies any chest pain, had chest x-rayWhich was nonacute, echocardiogram showed preserved ejection fraction with some diastolic dysfunction,Cardiology was consulted, her medical medications were optimized, patient also found to have UTI, started on antibiotics, patient discharged home in stable condition with recommendation to follow-up with cardiology as outpatient for further ischemic evaluation. Time spent discussing smoking cessation with patient: 3 to 10 minutes Condition Condition at Discharge: Stable Time Spent with Patient Time spent providing/coordinating discharge services (# min): 32 Diagnostic Studies Completed and Pending Studies Pending studies at discharge: 04/16/22 17:16 US venous duplex LE BI Stat 04/17/22 16:10 Urine Culture Routine Preliminary micro results at discharge 04/17/22 16:10 Urine Culture - Preliminary Urine - Clean-Voided Midstream Gram Negative Bacilli Labs on day of discharge: 04/18/22 05:56: PHA Creatinine Clear 46.00, Sodium 129 L, Potassium 4.2, Chloride 92 L, Carbon Dioxide 25.8, BUN 15, Creatinine 0.82, Est GFR ( Amer) > 60, Est GFR (Non-Af Amer) > 60, Glucose 92, Calcium 9.3, Magnesium 1.9 04/18/22 05:56: Corrected WBC 8.1, Uncorrected WBC Count 8.1, RBC 3.63, Hgb 9.2 L, Hct 27.5 L, MCV 75.8 L, MCH 25.4, MCHC 33.5, RDW 16.4 H, Plt Count 714 H, MPV6.9, Neut % (Auto) 65.1, Lymph % (Auto) 22.3, [place] % (Auto) 8.3, Eos % (Auto) 3.3, Baso % (Auto) 1.0, Neut # (Auto) 5.3, Lymph # (Auto) 1.8, [place] # (Auto) 0.7, Eos # (Auto) 0.3, Baso # (Auto) 0.1, Nucleated RBC % (auto) 0.1 Exam Physical Exam Vital Signs: Temp Pulse Resp BP Pulse Ox O2 Del Method 97.2 F L 71 20 100/68 98 Room Air 04/18/22 11:11 04/18/22 11:34 04/18/22 11:34 04/18/22 11:11 04/18/22 11:11 04/18/22 11:11 Narrative: Patient alert oriented in no acute distress Respiratory clear to auscultation bilaterally no wheezing or crackle heard Cardiovascular regular rate and rhythm, no murmur heard Abdomen soft nontender Extremities pedal edema Has pretty much resolved Neurological alert oriented, no focal motor neurological deficit present Discharge Plan Discharge Plan Patient Disposition: Home Activity: No Activity Restriction Diet: Low-Fat and Low-Sodium Prescriptions: New furosemide 40 mg Tablet 20 mg PO DAILY.8A Qty: 30 0RF lisinopril 2.5 mg Tablet 2.5 mg PO DAILY 30 Days Qty: 30 0RF amoxicillin-pot clavulanate 875-125 mg Tablet 1 tab PO BID 5 Days Qty: 10 0RF metoprolol tartrate 25 mg Tablet 25 mg PO BID 30 Days Qty: 60 0RF Continued albuterol sulfate 2.5 mg /3 mL (0.083 %) solution for nebulization 1 amp inhalation Q4H PRN (Reason: Wheezing) Label Comments: USE 1 VIAL PER NEBULIZER NEEDED 3 TIMES DAILY*J449* albuterol sulfate 90 mcg/actuation HFA aerosol inhaler 2 puff inhalation Q4H PRN (Reason: Wheezing) Label Comments: INHALE 2 PUFFS BY MOUTH EVERY 6 HOURS NEEDED atorvastatin 20 mg tablet 20 mg PO DAILY Label Comments: TAKE 1 TABLET BY MOUTH EVERY DAY aspirin 81 mg Tablet,Delayed Release (Dr/Ec) 81 mg PO DAILY 30 Days Qty: 30 0RF cholecalciferol (vitamin D3) [Vitamin D3] 25 mcg (1,000 unit) tablet 25 mcg PO DAILY Label Comments: TAKE 1 TABLET BY MOUTH EVERY DAY FOR 90 DAYS Rhyzhwvq-Izdapd-HQZ with vit D 750-30-1,000-1 fv-dx-ffac-mg Tablet 1 tab PO DAILY ibuprofen 200 mg Tablet 800 mg PO BID PRN (Reason: Pain) venlafaxine 75 mg capsule,extended release 24hr 75 mg PO DAILY Label Comments: TAKE 1 CAPSULE BY MOUTH EVERY DAY WITH FOOD Discontinued lisinopril 10 mg tablet 10 mg PO DAILY Label Comments: TAKE 1 TABLET BY MOUTH EVERY DAY Other Ambulatory Orders: Basic Metabolic Panel (Routine) Timeframe: 1 Week Location: Determined by Patient Ordered By: Parvin Batres Follow Up: Jaquelin Connell MD [Active Staff] - (Cardiology will arrange an outpatient stress test. Call office on Tuesday to confirm date/time. ) Delfina Trevino APRN, CLAIMS ACCOUNT SPECIALIST-C [Primary Care Provider] - (Call office on Tuesday to schedule follow-up with your Primary Care Provider in 3-5 days. ) Documented By: Parvin Batres MD 04/18/221752 Signed By: <Electronically signed by Parvin Batres MD> 04/18/221753 [facility] Work Phone: Evaluation note* Diagnosis Onset Date Resolution Status Acute diastolic heart failure acute COPD (chronic obstructive pulmonary disease) acute Edema, peripheral acute Elevated blood pressure reading acute Elevated troponin acute History of stroke acute Hyperlipidemia acute Hypertension acute Leg swelling acute Myocardial infarction type 2 acute Tobacco abuse acute [facility] Work Phone: Evaluation noteNo assessment information available [facility] Work Phone: Evaluxldbi noteNorth ipnexus Other History and physical note Author Josué Alvarez [facility] April 16, 2022 9:42pm Note Date/Time April 16, 2022 9:4 0pm [facility] [address] [place] [address] Hospitalist H&P Signed Patient: Corie Courtney MR#: [id number] : 1950 Acct:[id number] Age/Sex: 71 / F Adm Date: 2 Loc: Room: [address] [place] [address] Type: ADM INOo Attending Dr: Josué Alvarez DO Copies to: Delfina Trevino APRN,[employer] Josué Alvarez DO~ HPI DATE OF EXAMINATION: 04/16/22 CHIEF COMPLAINT: leg swelling HISTORY OF PRESENT ILLNESS: Ms. Courtney is a 71-year-old female who came to the hospital earlier today with a chief complaint of bilateral lower extremity swelling. She states this has been on and off phenomenon for the past 2 months but prior to that she denies any leg swelling. She denies any leg pain. She reports the leg swellingdoes get better in the morning after she wakes up. It is worse by the end of the day, though it does not happen every day she says. She also has a history of COPD and uses her Ventolin inhaler often, she still smokes 1/2 pack cigarettes a day, she has does take daily aspirin and takes it cholesterol medication for her hyperlipidemia. She does endorse some chest pain on and off but states she always thought it was related to her COPD. She denies any activechest pain today. She denies symptoms of orthopnea or PND. In the ED and ultrasound was performed on her bilateral lower extremities which was negative for DVT, on routine blood work her troponin was elevated at 314. She is also anemic at 9.2 which is well below her baseline of 14-15 based on ourrecords here with her last visit being October 09, 2020 Review of Systems Review of Systems Review of systems: Constitutional: Denies body aches, chills, fatigue Denies any blurry or double vision CV: Denies active chest pain, irregular rhythm, endorses shortness of breath, leg swelling Respiratory, denies shortness of breath, cough, wheeze, pain with deep inspiration GI: Denies any nausea, vomiting, diarrhea, constipation, changes in bowel habitsoverall MSK: Denies joint pain, yes to lower extremity swelling up to the ankle, denies back pain, denies weakness Neurologic: Denies confusion, denies dizziness, denies headaches, denies lack coordination Psychiatric: Denies depression, denies behavioral changes Hematology: Denies easy bruising, denies easy bleeding PMFSH Vaccinated for COVID-19?: No Medical History (Updated 04/16/22 @ 21:37 by Josué Alvarez DO) COPD (chronic obstructive pulmonary disease) CVA (cerebral vascular accident) Depression History of skin cancer nose Hypertension Surgical History History of History of surgery on right wrist Family History Other No significant family history Social History Smoking Status: Current every day smoker Tobacco Type: cigarettes Substance Use Type: None Substance Abuse Comment: social Meds Medications and Allergies Allergies No Known Allergies Allergy (Verified 04/16/22 16:57) Home Medications lisinopril 10 mg tablet 10 mg PO DAILY 06/19/19 [History Confirmed 04/16/22] albuterol sulfate 1 amp inhalation Q4H PRN Wheezing 01/14/20 [History Confirmed 04/16/22] albuterol sulfate 90 mcg/actuation aerosol inhaler 2 puff inhalation Q4H PRN Wheezing 05/04/20 [History Confirmed 04/16/22] atorvastatin 20 mg tablet 20 mg PO DAILY 06/27/20 [History Confirmed 04/16/22] aspirin 81 mg tablet,delayed release 81 mg PO DAILY 30 days #30 tabs 06/28/20 [Rx Confirmed 04/16/22] cholecalciferol (vitamin D3) 25 mcg (1,000 unit) tablet (Vitamin D3) 25 mcg PO DAILY 04/16/22 [History Confirmed 04/16/22] diclofenac sodium 75 mg tablet,delayed release 75 mg PO DAILY 04/16/22 [History Confirmed 04/16/22] Exam Physical Exam Vital Signs: Temp Pulse Resp BP Pulse Ox O2 Del Method 98.6 F 100 H 18 144/70 H 97 Room Air 04/16/22 17:00 04/16/22 17:00 04/16/22 17:00 04/16/22 17:00 04/16/22 17:00 04/16/22 17:00 Narrative: General: Awake alert, no acute distress. Sitting up in the bed, son was in the room HEENT: head atraumatic, normocephalic, moist mucous membranes, normal nose and ears, no throat lesions, normal conjunctiva Neck: supple no masses, no lymphadenopathy CVS: regular rate and rhythm, no murmurs or gallops Respiratory: clear to auscultation bilaterally, bilateral expiratory wheezes, nocrackles, symmetric expansion GI: soft, nondistended, nontender, positive bowel sounds with no organomegaly Extremity: moves all extremities, no restrictions of movements, no calf tenderness, +3 pitting edema up to the malleoli, there is a large ring of indentation from the patient's slippers on the edema. Pulses are detected with Doppler, axes are marked on her feet where the dorsalis pedis. Neuro: AOx3, CN II-VII intact. Moves all extremities in all planes of motion. Skin: dry, intact no rashes or lesions Results Lab Results Labs: Laboratory Last Values Corrected WBC 9.1 X10E3/uL (3.8-11.6) 04/16/22 18:10 Uncorrected WBC Count 9.1 x10E3/uL (4.5-11.0) 04/16/22 18:10 RBC 3.69 x10E6/uL (3.60-5.00) 04/16/22 18:10 Hgb 9.2 g/dL (11.8-15.4) L 04/16/22 18:10 Hct 28.4 % (34.0-46.4) L 04/16/22 18:10 MCV 77.0 fl (80-100) L 04/16/22 18:10 MCH 24.9 pg (24.7-34.3) 04/16/22 18:10 MCHC 32.4 g/dL (32.0-35.0) 04/16/22 18:10 RDW 17.1 % (11.9-15.3) H 04/16/22 18:10 Plt Count 696 x10E3/uL (150-450) H 04/16/22 18:10 MPV 6.9 fl (6.3-10.7) 04/16/22 18:10 Neut % (Auto) 55.9 % (.) 04/16/22 18:10 Lymph % (Auto) 30.4 % (.) 04/16/22 18:10 [place] % (Auto) 8.6 % (.) 04/16/22 18:10 Eos % (Auto) 3.7 % (.) 04/16/22 18:10 Baso % (Auto) 1.4 % (.) 04/16/22 18:10 Neut # (Auto) 5.1 x10E3/uL (1.8-7.7) 04/16/22 18:10 Lymph # (Auto) 2.8 x10E3/uL (1.00-4.8) 04/16/22 18:10 [place] # (Auto) 0.8 x10E3/uL (0.0-0.8) 04/16/22 18:10 Eos # (Auto) 0.3 x10E3/uL (0.0-0.45) 04/16/22 18:10 Baso # (Auto) 0.1 x10E3/uL (0.0-0.2) 04/16/22 18:10 Nucleated RBC % (auto) 0.0 % (0-0.5) 04/16/22 18:10 PT 14.0 Seconds (9.0-12.9) H 04/16/22 18:10 INR 1.2 04/16/22 18:10 APTT 30.5 Seconds (25.1-36.5) 04/16/22 18:10 PHA Creatinine Clear 41.01 04/16/22 18:10 Sodium 131 mmol/L (136-146) L 04/16/22 18:10 Potassium 4.3 mmol/L (3.5-5.1) 04/16/22 18:10 Chloride 95 mmol/L (95-114) 04/16/22 18:10 Carbon Dioxide 24.3 mmol/L (22.0-30.0) 04/16/22 18:10 BUN 13 mg/dL (9-23) 04/16/22 18:10 Creatinine 0.93 mg/dL (0.44-1.03) 04/16/22 18:10 Est GFR ( Amer) > 60 mL/Min 04/16/22 18:10 Est GFR (Non-Af Amer) 60 mL/Min 04/16/22 18:10 Glucose 92 mg/dL (70-100) 04/16/22 18:10 Calcium 9.5 mg/dL (8.2-10.2) 04/16/22 18:10 Total Bilirubin 0.4 mg/dL (0.3-1.2) 04/16/22 18:10 Direct Bilirubin < 0.1 mg/dL (0.0-0.4) 04/16/22 18:10 Indirect Bilirubin TNP 04/16/22 18:10 AST 17 U/L (10-42) 04/16/22 18:10 ALT 17 U/L (10-60) 04/16/22 18:10 Alkaline Phosphatase 85 U/L (32-92) 04/16/22 18:10 Troponin I High Sens 314 pg/mL (0-15) H* 04/16/22 18:10 B-Natriuretic Peptide 118.0 pg/mL (5-100) H 04/16/22 18:10 Total Protein 6.5 gm/dL (6.1-7.9) 04/16/22 18:10 Albumin 2.6 gm/dL (3.2-5.5) L 04/16/22 18:10 Globulin 3.9 gm/dL 04/16/22 18:10 Albumin/Globulin Ratio 0.7 04/16/22 18:10 SARS-CoV-2 Rap RNA(RT-PCR) Negative (Negative) 04/16/22 20:32 Microbiology Results Micro: Microbiology - Results from entire visit 04/16/22 20:32 Nasopharyngeal SARS-CoV-2, Influenza & RSV (PCR) - Final A&P - Hospitalist Assessment/Plan (1) Elevated troponin: Plan: ? Patient does endorse having on and off chest pain that she attributes to her COPD ? In the ED today, she does deny chest pain ? We will trend troponins overnight ? If they continue to trend up, will consult cardiology ? TTE in the morning, I do suspect this patient has undiagnosed right heart failure ?Echo from June 2020 shows an EF greater than 70%, I do not see any documentation of her RVSP on this echo ?Lipid panel and A1c in the morning for risk stratification (2) Elevated blood pressure reading: Plan: ? Continue home blood pressure medication lisinopril 10 mg (3) Leg swelling: Plan: ? TTE in the morning ?Bilateral lower extremity duplex was negative for DVT ? Suspect for undiagnosed right heart failure ? Patient is Lasix na?ve and will receive 1 dose of 20 mg IV Lasix tonight, willcontinue on a as needed basis. Plan ? Remainder of home medications continued ? Physical and Occupational Therapy consulted ? Lovenox for DVT prophylaxis ? Cardiac diet Documented By: Josué Alvarez DO 04/16/222129 Signed By: <Electronically signed by Josué Alvarez DO> 04/16/222141 [facility] Work Phone: History general Narrative - Reported* Type Description Date Medical History HTN Medical History hypercholesterolemia Medical History Arthritis Surgical History Left Foot Surgery Hospitalization History Stroke 2019 [facility] Other History general Narrative - Reported* Type Description Date Medical History HTN Medical History hypercholesterolemia Medical History Arthritis Medical History DEPRESSION Medical History DAILY ETOH Medical History BASAL CANCER Medical History COPD Medical History DDD C-SPINE Medical History OSTEOPORESIS Medical History RHEUMATOID Medical History CPPD Surgical History Left Foot Surgery Surgical History Surgical History RIGHT WRIST PINS/PLATE Surgical History BASAL CELL CANCER Hospitalization History Stroke 2019 Hospitalization History SEE ABOVE Hospitalization History EDEMA 2021 [facility] Other History general Narrative - Reported[employer]ort[employer] Other Progress note Author Parvin Batres [facility] April 17, 2022 9:03am Note Date/Time April 17, 2022 8:5 6am [facility] [address] [place] [address] Hospitalist Progress Note Signed Patient: Corie Courtney MR#: [id number] : 1950 Acct:[id number] Age/Sex: 71 / F Adm Date: 2 Loc: Room: [address] [place] [address] Type: ADM INOo Attending Dr: Parvin Batres MD Copies to: ~ Date of Service: 04/17/2022 Subjective Subjective Narrative: Ms. Courtney is a 71-year-old female who came to the hospital earlier today with a chief complaint of bilateral lower extremity swelling. She states this has been on and off phenomenon for the past 2 months but prior to that she denies any leg swelling. She denies any leg pain. She reports the leg swellingdoes get better in the morning after she wakes up. It is worse by the end of the day, though it does not happen every day she says. She also has a history of COPD and uses her Ventolin inhaler often, she still smokes 1/2 pack cigarettes a day, she has does take daily aspirin and takes it cholesterol medication for her hyperlipidemia. She does endorse some chest pain on and off but states she always thought it was related to her COPD. She denies any activechest pain today. She denies symptoms of orthopnea or PND. In the ED and ultrasound was performed on her bilateral lower extremities which was negative for DVT, on routine blood work her troponin was elevated at 314. She is also anemic at 9.2 which is well below her baseline of 14-15 based on ourrecords here with her last visit being October 09, 2020 interval history: Patient seen and examined, patient was sitting on the chair comfortably, patientstates that she is always short of breath, smokes 1 and half pack of cigarette aday, patient also reported orthopnea, states that she is not able to sleep flat in bed, has to elevate bed to sleep well, patient states that if she sleeps thatshe starts coughing, denies any history of CAD in the past, denies any chest pain, troponin is 425, Exam Physical Exam Vital Signs: Temp Pulse Resp BP Pulse Ox O2 Del Method 98.2 F 103 H 16 120/85 93 L Room Air 04/17/22 07:40 04/17/22 07:40 04/17/22 07:40 04/17/22 07:40 04/17/22 07:40 04/17/22 07:40 Narrative: Patient alert oriented in no acute distress Respiratory clear to auscultation bilaterally no wheezing or crackle heard Cardiovascular regular rate and rhythm, no murmur heard Abdomen soft nontender Extremities pedal edema present Neurological alert oriented, no focal motor neurological deficit present Objective Lab Results CBC & Chem 7: 04/17/22 06:25 04/17/22 06:25 Microbiology Results Microbiology 04/16/22 20:32 Nasopharyngeal SARS-CoV-2, Influenza & RSV (PCR) - Final Meds Allergies and Active Meds Allergies No Known Allergies Allergy (Verified 04/16/22 16:57) Active Meds: Active Medications Generic Name Dose Route Start Last Admin Trade Name Freq PRN Reason Stop Dose Admin Acetaminophen 650 mg 04/16/22 21:21 Acetaminophen 325 Mg Tablet PO 04/16/23 21:20 Q6HR PRN Pain Scale 1 - 3 or fever Albuterol/Ipratropium 3 ml 04/16/22 21:21 Ipratropium/Albuterol 0.5-3 Mg 3 Ml Ampul.Neb INHALATION 04/17/23 07:59 QID.RESP PRN wheezing Enoxaparin Sodium 40 mg 04/17/22 10:00 Enoxaparin 40 Mg/0.4 Ml Syringe SUBCUT 04/17/23 09:59 DAILY@10 MERRY Magnesium Sulfate 2 gm in 50 mls @ 25 mls/hr 04/16/22 21:21 Magnesium Sulf 2gm-*Swfi* IV 04/16/23 21:20 DAILY PRN Magnesium Level < 1.5 Labetalol HCl 5 mg 04/16/22 21:21 Labetalol 100 Mg/20 Ml Vial IV-PUSH 04/16/23 21:20 Q4H PRN Hypertension Ondansetron HCl 4 mg 04/16/22 21:21 Ondansetron 4 Mg/2 Ml Vial IV-PUSH 04/16/23 21:20 Q8H PRN Nausea And Vomiting Potassium Chloride 40 meq 04/16/22 21:21 Potassium Chloride Er 20 Meq Tab.Er.Prt PO 04/16/23 21:20 DAILY PRN Hypokalemia Potassium Chloride 20 meq 04/16/22 21:21 Potassium Chloride Er 20 Meq Tab.Er.Prt PO 04/16/23 21:20 DAILY PRN Hypokalemia A&P - Hospitalist Assessment/Plan (1) Elevated troponin: Plan: ? Patient does endorse having on and off chest pain that she attributes to her COPD ? In the ED today, she does deny chest pain ? We will trend troponins overnight ? If they continue to trend up, will consult cardiology ? TTE in the morning, I do suspect this patient has undiagnosed right heart failure ?Echo from June 2020 shows an EF greater than 70%, I do not see any documentation of her RVSP on this echo ?Lipid panel and A1c in the morning for risk stratification (2) Elevated blood pressure reading: Plan: ? Continue home blood pressure medication lisinopril 10 mg (3) Leg swelling: Plan: ? TTE in the morning ?Bilateral lower extremity duplex was negative for DVT ? Suspect for undiagnosed right heart failure ? Patient is Lasix na?ve and will receive 1 dose of 20 mg IV Lasix tonight, willcontinue on a as needed basis. Plan Patient is 71-year-old female who presented with worsening pedal edema, also complains of some orthopnea and dyspnea on exertion, extensive history of tobacco abuse, smokes 1/2 pack of cigarette a day, patient was given a dose of IV Lasix in the ER, will give p.o. Lasix, BNP is 118, patient not on any supplemental oxygen, follow-up with echocardiogram, troponin elevation to 14, patient currently denies any chest pain, cardiology consulted Patient also has a thrombocytosis with a platelet count of 800, continue to monitor likely reactive, recommend patient to follow-up with hematology oncologyas outpatient, Will start aspirin Lipitor and low-dose Lopressor DVT prophylaxis Documented By: Parvin Batres MD 04/17/22 0855 Signed By: <Electronically signed by Parvin Batres MD> 04/17/22 0903 [facility] Work Phone: Progress note Author Parvin Batres [facility] April 18, 2022 9:07am Note Date/Time April 18, 2022 9:0 2am [facility] [address] [place] [address] Hospitalist Progress Note Signed Patient: Corie Cuortney MR#: [id number] : 1950 Acct:[id number] Age/Sex: 71 / F Adm Date: 2 Loc: 3T Room: [address] [place] [address] Type: ADM INOo Attending Dr: Parvin Batres MD Copies to: ~ Date of Service: 04/18/2022 Subjective Subjective Narrative: Ms. Courtney is a 71-year-old female who came to the hospital earlier today with a chief complaint of bilateral lower extremity swelling. She states this has been on and off phenomenon for the past 2 months but prior to that she denies any leg swelling. She denies any leg pain. She reports the leg swellingdoes get better in the morning after she wakes up. It is worse by the end of the day, though it does not happen every day she says. She also has a history of COPD and uses her Ventolin inhaler often, she still smokes 1/2 pack cigarettes a day, she has does take daily aspirin and takes it cholesterol medication for her hyperlipidemia. She does endorse some chest pain on and off but states she always thought it was related to her COPD. She denies any activechest pain today. She denies symptoms of orthopnea or PND. In the ED and ultrasound was performed on her bilateral lower extremities which was negative for DVT, on routine blood work her troponin was elevated at 314. She is also anemic at 9.2 which is well below her baseline of 14-15 based on ourrecords here with her last visit being October 09, 2020 interval history: Patient seen and examined, patient states that she has been feeling good, was complaining of some burning when she was urinating, patient states that she thinks her leg swelling is getting down, denies any chest pain, seen by cardiology, recommended outpatient evaluation Exam Physical Exam Vital Signs: Temp Pulse Resp BP Pulse Ox O2 Del Method 97.8 F 91 H 16 118/71 93 L Room Air 04/18/22 08:39 04/18/22 08:39 04/18/22 08:39 04/18/22 08:39 04/18/22 08:39 04/18/22 08:39 Narrative: Patient alert oriented in no acute distress Respiratory clear to auscultation bilaterally no wheezing or crackle heard Cardiovascular regular rate and rhythm, no murmur heard Abdomen soft nontender Extremities pedal edema Has pretty much resolved Neurological alert oriented, no focal motor neurological deficit present Objective Lab Results CBC & Chem 7: 04/18/22 05:56 04/18/22 05:56 Meds Allergies and Active Meds Allergies No Known Allergies Allergy (Verified 04/16/22 16:57) Active Meds: Active Medications Generic Name Dose Route Start Last Admin Trade Name Freq PRN Reason Stop Dose Admin Acetaminophen 650 mg 04/16/22 21:21 04/17/22 20:01 Acetaminophen 325 Mg Tablet PO 04/16/23 21:20 650 mg Q6HR PRN Administration Pain Scale 1 - 3 or fever Albuterol 2.5 mg 04/17/22 08:58 Albuterol Neb 2.5 Mg/3 Ml Vial.Neb INHALATION 04/17/23 08:57 Q4H PRN Wheezing Albuterol/Ipratropium 3 ml 04/16/22 21:21 04/17/22 19:01 Ipratropium/Albuterol 0.5-3 Mg 3 Ml Ampul.Neb INHALATION 04/17/23 07:59 3 ml QID.RESP PRN Administration wheezing Amoxicillin/Clavulanate Potassium 1 tab 04/18/22 09:00 Amoxicillin/Clav 875-125 Mg Tablet PO BID MERRY Aspirin 81 mg 04/17/22 09:00 04/18/22 08:41 Aspirin 81 Mg Tablet. PO 04/17/23 08:59 81 mg DAILY MERRY Administration Atorvastatin Calcium 20 mg 04/17/22 09:00 04/18/22 08:41 Atorvastatin 20 Mg Tablet PO 04/17/23 08:59 20 mg DAILY MERRY Administration Enoxaparin Sodium 40 mg 04/17/22 10:00 04/17/22 09:53 Enoxaparin 40 Mg/0.4 Ml Syringe SUBCUT 04/17/23 09:59 40 mg DAILY@10 MERRY Administration Furosemide 40 mg 04/18/22 08:00 04/18/22 08:41 Furosemide 40 Mg Tablet PO 04/18/23 07:59 40 mg DAILY.8A MERRY Administration Magnesium Sulfate 2 gm in 50 mls @ 25 mls/hr 04/16/22 21:21 Magnesium Sulf 2gm-*Swfi* IV 04/16/23 21:20 DAILY PRN Magnesium Level < 1.5 Labetalol HCl 5 mg 04/16/22 21:21 Labetalol 100 Mg/20 Ml Vial IV-PUSH 04/16/23 21:20 Q4H PRN Hypertension Lisinopril 2.5 mg 04/18/22 09:00 04/18/22 08:41 Lisinopril 2.5 Mg Tablet PO 04/18/23 08:59 2.5 mg DAILY MERRY Administration Metoprolol Tartrate 25 mg 04/17/22 21:00 04/18/22 08:41 Metoprolol Tartrate 25 Mg Tablet PO 04/17/23 20:59 25 mg BID MERRY Administration Ondansetron HCl 4 mg 04/16/22 21:21 Ondansetron 4 Mg/2 Ml Vial IV-PUSH 04/16/23 21:20 Q8H PRN Nausea And Vomiting Potassium Chloride 40 meq 04/16/22 21:21 Potassium Chloride Er 20 Meq Tab.Er.Prt PO 04/16/23 21:20 DAILY PRN Hypokalemia Potassium Chloride 20 meq 04/16/22 21:21 Potassium Chloride Er 20 Meq Tab.Er.Prt PO 04/16/23 21:20 DAILY PRN Hypokalemia Sodium Chloride 10 ml 04/17/22 09:03 Sodium Chloride 0.9 % 10 Ml Syringe IV-PUSH 04/17/23 09:02 PRN PRN Flush Venlafaxine HCl 75 mg 04/17/22 12:00 04/17/22 11:46 Venlafaxine Er 75 Mg Cap.Er.24h PO 04/17/23 11:59 75 mg DAILY@1200 MERRY Administration A&P - Hospitalist Assessment/Plan (1) Elevated troponin: Plan: ? Patient does endorse having on and off chest pain that she attributes to her COPD ? In the ED today, she does deny chest pain ? We will trend troponins overnight ? If they continue to trend up, will consult cardiology ? TTE in the morning, I do suspect this patient has undiagnosed right heart failure ?Echo from June 2020 shows an EF greater than 70%, I do not see any documentation of her RVSP on this echo ?Lipid panel and A1c in the morning for risk stratification (2) Elevated blood pressure reading: Plan: ? Continue home blood pressure medication lisinopril 10 mg (3) Leg swelling: Plan: ? TTE in the morning ?Bilateral lower extremity duplex was negative for DVT ? Suspect for undiagnosed right heart failure ? Patient is Lasix na?ve and will receive 1 dose of 20 mg IV Lasix tonight, willcontinue on a as needed basis. Plan Patient is 71-year-old female who presented with worsening pedal edema, also complains of some orthopnea and dyspnea on exertion, extensive history of tobacco abuse, smokes 1/2 pack of cigarette a day, patient was given a dose of IV Lasix in the ER, her pedal edema is much better,Sodium is dropped to 129 likely secondary to underlying Lasix, will decrease Lasix to 20 p.o., seen by cardiology recommended ischemic evaluation as outpatient, patient found to have UTI, will give Augmentin, final cultures pending, Patient does have thrombocytosis, which is likely reactive, recommended to follow-up with hematology oncology as outpatient On Lopressor 9 lisinopril 2.5, Will discharge once cleared by cardiology DVT prophylaxis Documented By: Parvin Batres MD 04/18/22 0901 Signed By: <Electronically signed by Parvin Batres MD> 04/18/22 0907 [facility] Work Phone: Progress note Author Jaquelin Connell [facility] April 18, 2022 12:03pm Note Date/Time April 18, 2022 12: 03pm [facility] [address] [place] [address] Cardiology Progress Note Signed Patient: Corie Courtney MR#: [id number] : 1950 Acct:[id number] Age/Sex: 71 / F Adm Date: 2 Loc: Room: [address] [place] [address] Type: ADM INOo Attending Dr: Parvin Batres MD Copies to: ~ Date of Service: 04/18/2022 Subjective Interval history: Reported improvement of shortness of breath and lower extremity edema. Blood pressure and heart rate. I will accept Exam Physical Exam Vital Signs: Temp Pulse Resp BP Pulse Ox O2 Del Method 97.2 F L 71 20 100/68 98 Room Air 04/18/22 11:11 04/18/22 11:34 04/18/22 11:34 04/18/22 11:11 04/18/22 11:11 04/18/22 11:11 Eyes General: appearance normal, both eyes and all related structures Pupils: PERRL Neck Neck: normal visual inspection, supple and no lymphadenopathy noted Neck mass: No Thyroid: thyroid normal Carotids: normal carotid upstroke Chest Chest palpation & inspection: normal inspection of the chest Resp Effort & Inspection: normal respiratory effort Auscultation: clear to auscultation bilaterally Cardio Palpation: normal PMI Rate: regular rate Rhythm: regular rhythm Heart Sounds: S1 normal, S2 normal and murmur systolic I/ and at the apex Skin General: no rashes or lesions noted and dry skin Extrem General: full ROM, capillary refill normal and no clubbing, cyanosis or edema Objective Labs CBC & Chem 7: 04/18/22 05:56 04/18/22 05:56 Labs: Laboratory Results - last 24 hr 04/17/22 04/18/22 04/18/22 16:10 05:56 05:56 Corrected WBC 8.1 Uncorrected WBC Count 8.1 RBC 3.63 Hgb 9.2 L Hct 27.5 L MCV 75.8 L MCH 25.4 MCHC 33.5 RDW 16.4 H Plt Count 714 H MPV 6.9 Neut % (Auto) 65.1 Lymph % (Auto) 22.3 [place] % (Auto) 8.3 Eos % (Auto) 3.3 Baso % (Auto) 1.0 Neut # (Auto) 5.3 Lymph # (Auto) 1.8 [place] # (Auto) 0.7 Eos # (Auto) 0.3 Baso # (Auto) 0.1 Nucleated RBC % (auto) 0.1 PHA Creatinine Clear 46.00 Sodium 129 L Potassium 4.2 Chloride 92 L Carbon Dioxide 25.8 BUN 15 Creatinine 0.82 Est GFR ( Amer) > 60 Est GFR (Non-Af Amer) > 60 Glucose 92 Calcium 9.3 Magnesium 1.9 Urine Color Yellow Urine Appearance Cloudy A Urine pH 7.0 Ur Specific [place] 1.013 Urine Protein Negative Urine Glucose (UA) Normal Urine Ketones Negative Urine Occult Blood Trace H Urine Nitrite Negative Urine Bilirubin Negative Urine Urobilinogen Normal Ur Leukocyte Esterase 4+ H Urine RBC 5-9 H Urine WBC Innumerable H Ur Squamous Epith Cells 10-19 H Urine Bacteria 3+ H A&P - Cardiology (1) Acute diastolic heart failure: Assessment/Problem Details: Patient with clinical pictures of acute diastolic heart failure due to hypertensive heart disease and hyperdynamic LV systolic function Code(s): I50.31 - Acute diastolic (congestive) heart failure Status: Acute (2) Myocardial infarction type 2: Assessment/Problem Details: I suspect this is due to #1. The patient is also at increased risk of coronary artery disease Code(s): I21.A1 - Myocardial infarction type 2 Status: Acute (3) Tobacco abuse: Code(s): Z72.0 - Tobacco use Status: Acute (4) COPD (chronic obstructive pulmonary disease): Code(s): J44.9 - Chronic obstructive pulmonary disease, unspecified Status: Acute (5) History of stroke: Code(s): Z86.73 - Personal history of transient ischemic attack (TIA), and cerebral infarction without residual deficits Status: Acute (6) Hypertension: Code(s): I10 - Essential (primary) hypertension Status: Acute (7) Hyperlipidemia: Code(s): E78.5 - Hyperlipidemia, unspecified Status: Acute Plan 1. Patient can be discharged home 2. Continue present medical therapy 3. We will need outpatient ischemic evaluation to rule out underlying ischemic heart disease Documented By: Jaquelin Connell MD 04/18/22 1202 Signed By: <Electronically signed by MD Jaquelin Connell> 04/18/22 1203 [facility] Work Phone: Summary Purpose Family History No Family History Records Found Relationship Condition Age at Onset Recorded Date/T brenda brother Rheumatoid aortitis Unknown Suicidal intent Unknown Not Specified Heart disease Unknown Unknown Family Member Name Dates Details FH: CABG (coronary artery by pass surgery): Mother(V17.3, Z82.49) Status:Active Advance Directives No Advanced Directives Records Found Advance Directive Response Recorded Date/ Time Advance Directives No March 24 10:14am Chief Complaint and Reason for Visit Chief Complaint Bilat Ankle Swelling , NKI Foot pain, ankle pain Reason for Visit Acute diastolic hear t failure COPD (chronic obstructive pulmonary disease) Edema, peripheral Elevated blood pressure reading Elevated troponin History of stroke Hyperlipidemia Hypertension Leg swelling Myocardial infarction type 2 Tobacco abuse Chief Complaint Hip Pain Chief Complaint Hip Pain i50.32 Chief Complaint Hip Pain i50.32 Z78.0 J44.9 COPD Additional Source Comments INFORMATION SOURCE (unrecogn ized section and content) DATE CREATED AUTHOR 04/20/2019 [facility] DATE CREATED AUTHOR AUTHOR'S ORGANIZ ATION 03/05/2023 [employer] DATE CREATED AUTHOR AUTHOR'S ORGANIZ ATION 03/21/2023 [facility] DATE CREATED AUTHOR AUTHOR'S ORGANIZ ATION 06/27/2023 [facility] DATE CREATED AUTHOR AUTHOR'S ORGANIZ ATION 07/09/2023 [facility] REASON FOR VISIT (unrecogniz ed section and content) LEFT KNEE PAIN X2 MONTHSRENA L CHRONIC RENAL INSUFFIENCY Care Teams (unrecognized sec tion and content) Team Status: Inactive Member Role Status Dates Delfina Trevino APRN CLAIMS ACCOUNT SPECIALIST-C Primary Care Provide r Active Mark Avila MD Attending Provider Active Team Status: Inactive Member Role Status Dates Delfina Trevino APRN CLAIMS ACCOUNT SPECIALIST-C Primary Care Provide r Active Wilman Ramirez DO Emergency Provider Active Josué Alvarez DO Admit Provider Active Jennifer Ding RN Other Provider Active Jerica Carrasco DO Other Provider Active Wilbert East MD Other Provider Active Willie Milner MD Other Provider Active Jaquelin Connell MD Other Provider Active Zia Lloyd MD Other Provider Active Iwona Mayberry APRN Other Provider Active Paulina Garsia MD Other Provider Active Payal Horta MD Other Provider Active Kale Robles MD Other Provider Active Parvin Batres MD Attending Provider Active Team Status: Active Member Role Status Dates Delfina Trevino APRN CLAIMS ACCOUNT SPECIALIST-C Primary Care Provide r Active Team Status: Inactive Member Role Status Dates Delfina Trevino APRN CLAIMS ACCOUNT SPECIALIST-C Primary Care Provide r Active Layo Sheridan APRN Emergency Provider Active Team Status: Inactive Member Role Status Dates Delfina Trevino APRN CLAIMS ACCOUNT SPECIALIST-C Primar y Care Provider, Attending Provider Active Jerica Carrasco DO Referring Provider Active Team Status: Inactive Member Role Status Dates Delfina Trevino APRN CLAIMS ACCOUNT SPECIALIST-C Primar y Care Provider, Attending Provider Active Goals (unrecognized section and content) Goals may be documented in a n alternate section FOR RECORDS PERTAINING TO PATIENTS WHO ARE OR HAVE BEEN ENROLLED IN A CHEMICAL DEPENDENCY/SUBSTANCEABUSE PROGRAM, SOME INFORMATION MAY BE OMITTED. This clinical summary was aggregated from multiple sources. Caution should be exercised in using it in the provision of clinical care. This summary normalizes information from multiple sources, and as a consequence, information in this document may materially change the coding, format and clinical context of patient data. In addition, data may be omitted in some cases. CLINICAL DECISIONS SHOULD BE BASED ON THE PRIMARY CLINICAL RECORDS. [facility]. provides no warranty or guarantee of the accuracy or completeness of information in this document.
[2023-10-17 09:39] VITALS: BP 117/77; PULSE 104; RESP 16; TEMP 36.9; O2SAT 96
[2023-10-17 10:35] VITALS: BP 116/56; BP 117/53; PULSE 101; PULSE 99; RESP 18; O2SAT 96
--- NOTE | 2023-10-17 10:36 | W.PM.PROCNOT ---
Date of procedure: 10/17/23 Pre-op diagnosis: Right hip osteoarthritis Post-op diagnosis: same as pre-op Procedure: Procedure: Right hip intraarticular injection Medications: Bupivacaine 0.25% 3cc, kenalog 40mg I explained the details of the procedure to the patient including the risks, benefits and alternatives. We had an informed discussion and the patient verbalized understanding and signed the consent form. All questions were answered appropriately.? A time out was performed.? After obtaining a comfortable supine position, the skin overlying the hip, subtrochanteric region, and joint space were prepped with alcohol. A sterile syringe containing the above medication was attached to a 25 guage, 3.5 inch spinal needle under strict aseptic technique. X ray was used to identify the joint space and the femoral neck on the right side.? The needle was than advanced through the subcutaneous tissue after local injection of 1% lidocaine.? The contents of the syringe were gently injected without any resistance into the joint space after contrast (isovue) outlined the appropriate area. The needle was removed and pressure was applied to the injection site to decrease the incidence of ecchymosis and hematoma formation.? A sterile bandage was applied. Post procedural instructions were given to the patient. Anesthesia: Local Surgeon: Serge Rodriguez Pathology: none sent Condition: stable Disposition: no change
[2023-10-17] MEDS: BUPIVACAINE HCL 0.25% PF 25 MG/10 ML VIAL 4 ML INJ (10:37)
[2023-10-17] MEDS: LIDOCAINE HCL 2% PF 100 MG/5 ML VIAL 2 ML INJ (10:38)
[2023-10-17] MEDS: IOHEXOL 240 MG/ML - 10 ML VIAL 12 MG INJ (10:38)
[2023-10-17] MEDS: TRIAMCINOLONE ACETONIDE 40 MG/ML VIAL IM (10:38)
== END 2023-10-17 10:42 | disposition home or self-care (01) ==
PROVIDERS: Visit Provider Anesthesiology
DX: M16.11 Unilateral primary osteoarthritis, right hip (principal)
CPT/HCPCS: 20610; 77002; J0665; J3301; Q9966

== ENCOUNTER 2023-10-31 12:53 | Outpatient (OUT) | payer MEDICARE, SELFPAY ==
--- OUTSIDE RECORDS SUMMARY | 2023-10-31 13:07 | XMS_ITS | CCD ---
Author Name Unknown Address [address] [place] [address] Organization [facility] Care Team Providers Care Icing Mixer Name Role Phone MISC, DOCTOR Primary Care Unavailable GUME RODRIGUEZ Admitting GUME Padron Attending UnavailROGERS Cao Consulting Unavailable GUME RODRIGUEZ Consulting UnavailEstelita Breen Unavailable IFTIKHAR Trevino Primary Care Provide r DO Wilman Ramirez Emergency Provider [phone] DO Josué Alvarez Admit Provider RONEY Ding Other Provider Unavailable DO Jerica Carrasco Other Provider [phone] MD Wilbert East Other Provider MD Willie Milner Other Provider MD Jaquelin Connell Other Provider MD Zia Lloyd Other Provider IFTIKHAR Forrester Other Provider MD Paulina Garsia Other Provider MD Payal Horta Other Provider MD Kale Robles Other Provider MD Parvin Batres Attending Provider MD Mark Avila Attending Provider Linda Fontanez Unavailable IFTIKHAR Trevino Primary Care Provide r IFTIKHAR Sheridan Emergency Provider [phone] IFTIKHAR Trevino Attending Provider DO Jerica Carrasco [...] Horta Consulting Unavailab Kale Ramos Consulting Unavailable eDlfina Trevino Admitting Unavailab le Delfina Trevino Attending [...] sources) Acetaminophen / oxyCODONE Drug Allergy Unknown [employer] Other (2 sources) Clindamycin Drug Allergy Unknown [employer] Other (2 sources) PARoxetine Drug Allergy Unknown [employer] Other (2 sources) Pseudoephedrine Drug Allergy Unknown [employer] Other (2 sources) Sertraline Drug Allergy Unknown [employer] Other Medications Current Medications Medication Drug Class(es) [...] tablet by mariano th every twenty-four hours Gxsjyxae-Jliys-Lsd 2-C-D3-Jane (Mzvdaffr-Yxnbbu-Uoj With Vit D) 750-30-1,000-1 dc-fu-ktgu-mg Tablet (6 sources) Start: 04-16-2022 take 1 tablet by mouth once daily Cxgotaca-Kdqsk-Bhn 2-C-D3-Jane (Ekzlvfpk-Wvhkpz-Ytu With Vit D) 750-30-1,000-1 jo-xy-fylo-mg Tablet Active 1 TAB PO Daily April [...] DO Active take 1 capsule by mo [facility] once daily Metoprolol Succinate 25 [...] by mouth every six hours Hydrocodone-Acetam inophen ([place]) 5-325 mg tablet Discontinued 1 TAB PO [...] left hand, initial encounter; Translations: [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 You may also call 6-122-ZIZYNOW for free resources and assistance.; Status:Complete - Retrospective Authorization; Done: 04Mar2023 Tobacco Use Screening; Status:Complete; Done: [id number] Patient Instructions Please bring all medicines, vitamins, [...] of coffee (more content not included)... Normal [employer] Tobacco Screening.on 023 Adult depression screening assessment No [facility]-Cardiolo gy- [place] 250 DO Work Phone: Fall risk assessment a) No falls within the last year [facility]iology- [place] 250 DO Work Phone: Tobacco use status HS a) Yes M [facility]-Cardiology- [place] 250 DO Work Phone: Tobacco Screening. Yes [facility]-Car diology- [place] 250 DO Work Phone: Alanine aminotransferase [En zymatic activity/volume] in Serum or PlasmaOrdered By: Delfina Trevino on 02-28-2023 ALT [Catalytic activity/Vol] 12 U/L 7-52 [facility] Albumin [Mass/volume] in Ser um or Plasma by Bromocresol green (BCG) dye binding methoOrdered By: Delfina Trevino on 02-28-2023 Albumin BCG dye [Mass/Vol] 4.2 g/dL 3.5-5.7 [facility] Alkaline phosphatase [Enzyma tic activity/volume] in Serum or PlasmaOrdered By: eDlfina Trevino on 02-28-2023 ALP [Catalytic activity/Vol] 142 U/L 34-104 [facility] Aspartate aminotransferase [ Enzymatic activity/volume] in Serum or PlasmaOrdered By: Delfina Trevino on 02-28-2023 AST [Catalytic activity/Vol] 15 U/L 13-39 [facility] Basophils Auto (Bld) [#/Vol] Ordered By: Delfina Trevino on 02-28-2023 Basophils (Bld) [#/Vol] 0.1 10*3/uL 0.0-0.2 [facility] Basophils/100 WBC Auto (Bld) Ordered By: Delfina Trevino on 02-28-2023 Basophils/100 WBC (Bld) 0.9 % . F [facility] Bilirubin.total [Mass/volume ] in Serum or PlasmaOrdered By: Delfina Trevino on 02-28-2023 Bilirubin [Mass/Vol] 0.4 mg/dL 0.3-1.0 [facility] Calcium [Mass/volume] in Ser um or PlasmaOrdered By: Delfina Trevino on 02-28-2023 Calcium [Mass/Vol] 10.5 mg/dL 8.6-10.3 [facility] Carbon dioxide, total [Moles /volume] in Serum or PlasmaOrdered By: Delfina Trevino on 02-28-2023 CO2 [Moles/Vol] 23.8 mmol/L 21.0-31.0 [facility] Chloride [Moles/volume] in S stefan or PlasmaOrdered By: Delfina Trevino on 02-28-2023 Chloride [Moles/Vol] 98 mmol/L 98-107 [facility] Complete Blood Count Auto Di ffon 02-28-2023 Basophils (Bld) [#/Vol] 0.1 10*3/uL Normal 0.0-0.2 [facility] Comment on above: Order Comment: Reaso n for Exam Chronic diastolic congestive heart failure Result Comment: PERF ORMED BY: [place] [address] PATHOLOGIST MANAGER PEDIATRIC JOSEY BOUCHER M.D. Performed By: #### H APT, CRP, B12, LUIS ALFREDO, FE and TIBC, CREAT, ADDONUAPLUS, LDH #### [address] #### ANCA PROF #### [facility] , Basophils/100 WBC (Bld) 0.9 % Normal . [facility] Comment on above: Order Comment: Reaso n for Exam Chronic diastolic congestive heart failure Performed By: #### H APT, CRP, B12, LUIS ALFREDO, FE and TIBC, CREAT, ADDONUAPLUS, LDH #### [address] #### ANCA PROF #### [facility] , Eosinophils (Bld) [#/Vol] 0.6 10*3/uL High 0.0-0.45 [facility] Comment on above: Order Comment: Reaso n for Exam Chronic diastolic congestive heart failure Performed By: #### H APT, CRP, B12, LUIS ALFREDO, FE and TIBC, CREAT, ADDONUAPLUS, LDH #### [address] #### ANCA PROF #### [facility] , Eosinophils/100 WBC (Bld) 5.5 % Normal . [facility] Comment on above: Order Comment: Reaso n for Exam Chronic diastolic congestive heart failure Performed By: #### H APT, CRP, B12, LUIS ALFREDO, FE and TIBC, CREAT, ADDONUAPLUS, LDH #### [facility] [address] [place] [address] [place] #### ANCA PROF #### [facility] , Erythrocyte distribution width (RBC) [Ratio] 18.1 % High 11.9-15.3 [facility] Comment on above: Order Comment: Reaso n for Exam Chronic diastolic congestive heart failure Performed By: #### H APT, CRP, B12, LUIS ALFREDO, FE and TIBC, CREAT, ADDONUAPLUS, LDH #### [address] #### ANCA PROF #### [facility] , Hematocrit (Bld) [Volume fraction] 33.6 % Low 34.0-46.4 [facility] Comment on above: Order Comment: Reaso n for Exam Chronic diastolic congestive heart failure Performed By: #### H APT, CRP, B12, LUIS ALFREDO, FE and TIBC, CREAT, ADDONUAPLUS, LDH #### [address] #### ANCA PROF #### [facility] , Hemoglobin (Bld) [Mass/Vol] 11.4 g/dL Low 11.8-15.4 [facility] Comment on above: Order Comment: Reaso n for Exam Chronic diastolic congestive heart failure Performed By: #### H APT, CRP, B12, LUIS ALFREDO, FE and TIBC, CREAT, ADDONUAPLUS, LDH #### [address] #### ANCA PROF #### [facility] , Lymphocytes (Bld) [#/Vol] 2.2 10*3/uL Normal 1.00-4.8 [facility] Comment on above: Order Comment: Reaso n for Exam Chronic diastolic congestive heart failure Performed By: #### H APT, CRP, B12, LUIS ALFREDO, FE and TIBC, CREAT, ADDONUAPLUS, LDH #### [place] [address] [place] #### ANCA PROF #### [facility] , Lymphocytes/100 WBC (Bld) 21.4 % Normal . [facility] Comment on above: Order Comment: Reaso n for Exam Chronic diastolic congestive heart failure Performed By: #### H APT, CRP, B12, LUIS ALFREDO, FE and TIBC, CREAT, ADDONUAPLUS, LDH #### [address] #### ANCA PROF #### [facility] , MCH (RBC) [Entitic mass] 28.4 pg Normal 24.7-34.3 [facility] Comment on above: Order Comment: Reaso n for Exam Chronic diastolic congestive heart failure Performed By: #### H APT, CRP, B12, LUIS ALFREDO, FE and TIBC, CREAT, ADDONUAPLUS, LDH #### [facility] [address] [place] [address] #### ANCA PROF #### [facility] , MCV (RBC) [Entitic vol] 83.5 fL Normal 80-100 [facility] Comment on above: Order Comment: Reaso n for Exam Chronic diastolic congestive heart failure Performed By: #### H APT, CRP, B12, LUIS ALFREDO, FE and TIBC, CREAT, ADDONUAPLUS, LDH #### [address] #### ANCA PROF #### [facility] , Mean Corpuscular HGB Conc 34.1 g/dL Normal 32.0-35.0 [facility] Comment on above: Order Comment: Reaso n for Exam Chronic diastolic congestive heart failure Performed By: #### H APT, CRP, B12, LUIS ALFREDO, FE and TIBC, CREAT, ADDONUAPLUS, LDH #### [facility] [address] [place] [address] [place] #### ANCA PROF #### [facility] , Monocytes (Bld) [#/Vol] 0.7 10*3/uL Normal 0.0-0.8 [facility] Comment on above: Order Comment: Reaso n for Exam Chronic diastolic congestive heart failure Performed By: #### H APT, CRP, B12, LUIS ALFREDO, FE and TIBC, CREAT, ADDONUAPLUS, LDH #### [place] [address] [place] #### ANCA PROF #### [facility] , Monocytes/100 WBC (Bld) 6.8 % Normal . [facility] Comment on above: Order Comment: Reaso n for Exam Chronic diastolic congestive heart failure Performed By: #### H APT, CRP, B12, LUIS ALFREDO, FE and TIBC, CREAT, ADDONUAPLUS, LDH #### [facility] [address] [place] [address] [place] #### ANCA PROF #### [facility] , Neutrophils (Bld) [#/Vol] 6.9 10*3/uL Normal 1.8-7.7 [facility] Comment on above: Order Comment: Reaso n for Exam Chronic diastolic congestive heart failure Performed By: #### H APT, CRP, B12, LUIS ALFREDO, FE and TIBC, CREAT, ADDONUAPLUS, LDH #### [facility] [address] [place] [address] #### ANCA PROF #### [facility] , Neutrophils/100 WBC (Bld) 65.4 % Normal . [facility] Comment on above: Order Comment: Reaso n for Exam Chronic diastolic congestive heart failure Performed By: #### H APT, CRP, B12, LUIS ALFREDO, FE and TIBC, CREAT, ADDONUAPLUS, LDH #### [facility] [address] [place] [address] [place] #### ANCA PROF #### [facility] , NRBC% 0.1 /100{WBC} Normal 0-0.5 [facility] Comment on above: Order Comment: Reaso n for Exam Chronic diastolic congestive heart failure Performed By: #### H APT, CRP, B12, LUIS ALFREDO, FE and TIBC, CREAT, ADDONUAPLUS, LDH #### [facility] [address] [place] [address] [place] #### ANCA PROF #### [facility] , Platelet mean volume (Bld) [Entitic vol] 7.0 fL Normal 6.3-10.7 [facility] Comment on above: Order Comment: Reaso n for Exam Chronic diastolic congestive heart failure Performed By: #### H APT, CRP, B12, LUIS ALFREDO, FE and TIBC, CREAT, ADDONUAPLUS, LDH #### [facility] [address] [place] [address] [place] #### ANCA PROF #### [facility] , Platelets (Bld) [#/Vol] 536 10*3/uL High 150-450 [facility] Comment on above: Order Comment: Reaso n for Exam Chronic diastolic congestive heart failure Performed By: #### H APT, CRP, B12, LUIS ALFREDO, FE and TIBC, CREAT, ADDONUAPLUS, LDH #### [facility] [address] #### ANCA PROF #### [facility] , RBC (Bld) [#/Vol] 4.02 10*6/uL Normal 3.60-5.00 [facility] Comment on above: Order Comment: Reaso n for Exam Chronic diastolic congestive heart failure Performed By: #### H APT, CRP, B12, LUIS ALFREDO, FE and TIBC, CREAT, ADDONUAPLUS, LDH #### [facility] [address] [place] [address] #### ANCA PROF #### [facility] , WBC (Bld) [#/Vol] 10.5 10*3/uL Normal 3.8-11.6 [facility] Comment on above: Order Comment: Reaso n for Exam Chronic diastolic congestive heart failure Performed By: #### H APT, CRP, B12, LUIS ALFREDO, FE and TIBC, CREAT, ADDONUAPLUS, LDH #### [facility] [address] [place] [address] [place] #### ANCA PROF #### [facility] , Comprehensive Metabolic Pane dinoar 02-28-2023 Albumin [Mass/Vol] 4.2 g/dL Normal 3.5-5.7 [facility] Comment on above: Order Comment: Reaso n for Exam Chronic diastolic congestive heart failure Reason for Exam Bone pain Performed By: #### H APT, CRP, B12, LUIS ALFREDO, FE and TIBC, CREAT, ADDONUAPLUS, LDH #### [facility] [address] [place] [address] [place] #### ANCA PROF #### [facility] , Albumin/Globulin [Mass ratio] 1.2 {ratio} Normal [facility] Comment on above: Order Comment: Reaso n for Exam Chronic diastolic congestive heart failure Reason for Exam Bone pain Performed By: #### H APT, CRP, B12, LUIS ALFREDO, FE and TIBC, CREAT, ADDONUAPLUS, LDH #### [facility] [address] [place] [address] #### ANCA PROF #### [facility] , ALP [Catalytic activity/Vol] 142 U/L High 34-104 [facility] Comment on above: Order Comment: Reaso n for Exam Chronic diastolic congestive heart failure Reason for Exam Bone pain Performed By: #### H APT, CRP, B12, LUIS ALFREDO, FE and TIBC, CREAT, ADDONUAPLUS, LDH #### [facility] [address] [place] [address] [place] #### ANCA PROF #### [facility] , ALT [Catalytic activity/Vol] 12 U/L Normal 7-52 [facility] Comment on above: Order Comment: Reaso n for Exam Chronic diastolic congestive heart failure Reason for Exam Bone pain Performed By: #### H APT, CRP, B12, LUIS ALFREDO, FE and TIBC, CREAT, ADDONUAPLUS, LDH #### [facility] [address] [place] [address] [place] #### ANCA PROF #### [facility] , Anion gap [Moles/Vol] 13.2 mmol/L Normal 6.0-15.0 [facility] Comment on above: Order Comment: Reaso n for Exam Chronic diastolic congestive heart failure Reason for Exam Bone pain Performed By: #### H APT, CRP, B12, LUIS ALFREDO, FE and TIBC, CREAT, ADDONUAPLUS, LDH #### [facility] [address] [place] [address] [place] #### ANCA PROF #### [facility] , AST [Catalytic activity/Vol] 15 U/L Normal 13-39 [facility] Comment on above: Order Comment: Reaso n for Exam Chronic diastolic congestive heart failure Reason for Exam Bone pain Performed By: #### H APT, CRP, B12, LUIS ALFREDO, FE and TIBC, CREAT, ADDONUAPLUS, LDH #### [facility] [address] [place] [address] #### ANCA PROF #### [facility] , Bilirubin [Mass/Vol] 0.4 mg/dL Normal 0.3-1.0 [facility] Comment on above: Order Comment: Reaso n for Exam Chronic diastolic congestive heart failure Reason for Exam Bone pain Performed By: #### H APT, CRP, B12, LUIS ALFREDO, FE and TIBC, CREAT, ADDONUAPLUS, LDH #### [facility] [address] [place] [address] #### ANCA PROF #### [facility] , Calcium [Mass/Vol] 10.5 mg/dL High 8.6-10.3 [facility] Comment on above: Order Comment: Reaso n for Exam Chronic diastolic congestive heart failure Reason for Exam Bone pain Performed By: #### H APT, CRP, B12, LUIS ALFREDO, FE and TIBC, CREAT, ADDONUAPLUS, LDH #### [address] #### ANCA PROF #### [facility] , Chloride [Moles/Vol] 98 mmol/L Normal 98-107 [facility] Comment on above: Order Comment: Reaso n for Exam Chronic diastolic congestive heart failure Reason for Exam Bone pain Performed By: #### H APT, CRP, B12, LUIS ALFREDO, FE and TIBC, CREAT, ADDONUAPLUS, LDH #### [facility] [address] [place] [address] [place] #### ANCA PROF #### [facility] , CO2 [Moles/Vol] 23.8 mmol/L Normal 21.0-31.0 [facility] Comment on above: Order Comment: Reaso n for Exam Chronic diastolic congestive heart failure Reason for Exam Bone pain Performed By: #### H APT, CRP, B12, LUIS ALFREDO, FE and TIBC, CREAT, ADDONUAPLUS, LDH #### [facility] [address] [place] [address] [place] #### ANCA PROF #### [facility] , Creatinine [Mass/Vol] 1.43 mg/dL High 0.60-1.20 [facility] Comment on above: Order Comment: Reaso n for Exam Chronic diastolic congestive heart failure Reason for Exam Bone pain Performed By: #### H APT, CRP, B12, LUIS ALFREDO, FE and TIBC, CREAT, ADDONUAPLUS, LDH #### [facility] [address] [place] [address] #### ANCA PROF #### [facility] , GFR/1.73 sq M.predicted MDRD (S/P/Bld) [Vol rate/Area] 39.456 mL/min/{1.73_m2} [facility] Comment on above: Order Comment: Reaso n for Exam Chronic diastolic congestive heart failure Reason for Exam Bone pain Performed By: #### H APT, CRP, B12, LUIS ALFREDO, FE and TIBC, CREAT, ADDONUAPLUS, LDH #### [facility] [address] [place] [address] #### ANCA PROF #### [facility] , Globulin (S) [Mass/Vol] 3.6 g/dL Normal [facility] Comment on above: Order Comment: Reaso n for Exam Chronic diastolic congestive heart failure Reason for Exam Bone pain Performed By: #### H APT, CRP, B12, LUIS ALFREDO, FE and TIBC, CREAT, ADDONUAPLUS, LDH #### [facility] [address] [place] [address] [place] #### ANCA PROF #### [facility] , Glucose [Mass/Vol] 100 mg/dL Normal 70-100 [facility] Comment on above: Order Comment: Reaso n for Exam Chronic diastolic congestive heart failure Reason for Exam Bone pain Result Comment: [facility] Glucose Reference Range is dependent on time and content of last meal. Glucose of more than 200 mg/dL in a nonstressed, ambulatory subject supports the diagnosis of Diabetes Mellitus. ADA recommended reference range Performed By: #### H APT, CRP, B12, LUIS ALFREDO, FE and TIBC, CREAT, ADDONUAPLUS, LDH #### [facility] [address] [place] [address] [place] #### ANCA PROF #### [facility] , Potassium [Moles/Vol] 4.0 mmol/L Normal 3.5-5.1 [facility] Comment on above: Order Comment: Reaso n for Exam Chronic diastolic congestive heart failure Reason for Exam Bone pain Performed By: #### H APT, CRP, B12, LUIS ALFREDO, FE and TIBC, CREAT, ADDONUAPLUS, LDH #### [place] [address] [place] #### ANCA PROF #### [facility] , Protein [Mass/Vol] 7.8 g/dL Normal 6.4-8.9 [facility] Comment on above: Order Comment: Reaso n for Exam Chronic diastolic congestive heart failure Reason for Exam Bone pain Performed By: #### H APT, CRP, B12, LUIS ALFREDO, FE and TIBC, CREAT, ADDONUAPLUS, LDH #### [place] [address] [place] #### ANCA PROF #### [facility] , Sodium [Moles/Vol] 131 mmol/L Low 136-145 [facility] Comment on above: Order Comment: Reaso n for Exam Chronic diastolic congestive heart failure Reason for Exam Bone pain Performed By: #### H APT, CRP, B12, LUIS ALFREDO, FE and TIBC, CREAT, ADDONUAPLUS, LDH #### [place] [address] [place] #### ANCA PROF #### [facility] , Urea nitrogen [Mass/Vol] 27 mg/dL High 7-25 [facility] Comment on above: Order Comment: Reaso n for Exam Chronic diastolic congestive heart failure Reason for Exam Bone pain Performed By: #### H APT, CRP, B12, LUIS ALFREDO, FE and TIBC, CREAT, ADDONUAPLUS, LDH #### [facility] [address] #### ANCA PROF #### [facility] , Creatinine [Mass/volume] in Serum or PlasmaOrdered By: Delfina Trevino on 02-28-2023 Creatinine [Mass/Vol] 1.43 mg/dL 0.60-1.20 [facility] Eosinophils Auto (Bld) [#/Vo l]Ordered By: Delfina Trevino on 02-28-2023 Eosinophils (Bld) [#/Vol] 0.6 10*3/uL 0.0-0.45 [facility] Eosinophils/100 WBC Auto (Bl d)Ordered By: Delfina Trevino on 02-28-2023 Eosinophils/100 WBC (Bld) 5.5 % . [facility] Erythrocyte distribution wid th Auto (RBC) [Ratio]Ordered By: Delfina Trevino on 02-28-2023 Erythrocyte distribution width (RBC) [Ratio] 18.1 % 11.9-15.3 [facility] Globulin Calc (S) [Mass/Vol] Ordered By: Delfina Trevino on 02-28-2023 Globulin (S) [Mass/Vol] 3.6 g/dL [facility] Glucose [Mass/volume] in Ser um or PlasmaOrdered By: Delfina Trevino on 02-28-2023 Glucose [Mass/Vol] 100 mg/dL 70-100 [facility] Comment on above: ADA recommended refe rence rangeRandom Glucose Reference Range is dependent on time and content of last meal. Glucose of more than 200 mg/dL in a nonstressed, ambulatory subject supports the diagnosis of Diabetes Mellitus. Hematocrit Auto (Bld) [Volum e fraction]Ordered By: Delfina Trevino on 02-28-2023 Hematocrit (Bld) [Volume fraction] 33.6 % 34.0-46.4 [facility] Hemoglobin [Mass/volume] in BloodOrdered By: Delfina Trevino on 02-28-2023 Hemoglobin (Bld) [Mass/Vol] 11.4 g/dL 11.8-15.4 [facility] Leukocytes [#/volume] correc candelario for nucleated erythrocytes in Blood by Automated counOrdered By: Delfina Trevino on 02-28-2023 WBC corrected for nucl RBC Auto (Bld) [#/Vol] 10.5 10*3/uL 3.8-11.6 [facility] Lymphocytes Auto (Bld) [#/Vo l]Ordered By: Delfina Trevino on 02-28-2023 Lymphocytes (Bld) [#/Vol] 2.2 10*3/uL 1.00-4.8 [facility] Lymphocytes/100 WBC Auto (Bl d)Ordered By: Delfina Trevino on 02-28-2023 Lymphocytes/100 WBC (Bld) 21.4 % . [facility] MCH Auto (RBC) [Entitic mass ]Ordered By: Delfina Trevino on 02-28-2023 MCH (RBC) [Entitic mass] 28.4 pg 24.7-34.3 [facility] MCHC Auto (RBC) [Mass/Vol]Or dered By: Delfina Trevino on 02-28-2023 MCHC (RBC) [Mass/Vol] 34.1 g/dL 32.0-35.0 [facility] MCV Auto (RBC) [Entitic vol] Ordered By: Delfina Trevino on 02-28-2023 MCV (RBC) [Entitic vol] 83.5 fL 80-100 F [facility] Monocytes Auto (Bld) [#/Vol] Ordered By: Delfina Trevino on 02-28-2023 Monocytes (Bld) [#/Vol] 0.7 10*3/uL 0.0-0.8 [facility] Monocytes/100 WBC Auto (Bld) Ordered By: Delfina Trevino on 02-28-2023 Monocytes/100 WBC (Bld) 6.8 % . [facility] NM jony perf SPECT rest stron 02-28-2023 NM jony perf SPECT rest [place] [address] Nuclear Medicine Report Signed Patient: Corie Courtney MR#: [id number] : 1950 Acct:[id number] Age/Sex: 72 / F ADM Date: 02/28/23 Loc: [place] Room: Type: [facility] Attending Dr: Delfina Trevino APRN, TANK STORAGE SUPERVISOR-C Copies to: Delfina Trevino APRN,PAPER FOLDING MACHINE OPERATOR Jaquelin Connell MD Ordering Provider: Delfina Trevino [...] 02/28/23 1700 Signed By: 03/02/23 1539 Normal [facility] Neutrophils Auto (Bld) [#/Vo l]Ordered By: Delfina Trevino on 02-28-2023 Neutrophils (Bld) [#/Vol] 6.9 10*3/uL 1.8-7.7 [facility] Neutrophils/100 WBC Auto (Bl d)Ordered By: Delfina Trevino on 02-28-2023 Neutrophils/100 WBC (Bld) 65.4 % . [facility] No Panel InformationOrdered By: Delfina Trevino on 02-28-2023 Estimated GFR (CKD-EPI) 39.456 mL/Min [facility] Creatinine Clearance (Chem N/A [facility] Nucleated erythrocytes [Pres ence] in Blood by Automated countOrdered By: Delfina Trevino on 02-28-2023 Nucleated RBC Auto Ql (Bld) 0.1 /100{WBC} 0-0.5 [facility] Platelet mean volume Auto (B ld) [Entitic vol]Ordered By: Delfina Trevino on 02-28-2023 Platelet mean volume (Bld) [Entitic vol] 7.0 fL 6.3-10.7 [facility] Platelets Auto (Bld) [#/Vol] Ordered By: Delfina Trevino on 02-28-2023 Platelets (Bld) [#/Vol] 536 10*3/uL 150-450 [facility] Potassium [Moles/volume] in Serum or PlasmaOrdered By: Delfina Trevino on 02-28-2023 Potassium [Moles/Vol] 4.0 mmol/L 3.5-5.1 [facility] Protein [Mass/volume] in Ser um or PlasmaOrdered By: Delfina Trevino on 02-28-2023 Protein [Mass/Vol] 7.8 g/dL 6.4-8.9 [facility] RBC Auto (Bld) [#/Vol]Ordere d By: Delfina Trevino on 02-28-2023 RBC (Bld) [#/Vol] 4.02 10*6/uL 3.60-5.00 [facility] STR cardiac stress/lexiscano n 02-28-2023 STR cardiac stress/lexiscan [place] [address] Cardiac Stress Test Signed Patient: Corie Courtney MR#: [id number] : 1950 Acct:[id number] Age/Sex: 72 / F ADM Date: 02/28/23 Loc: [place] Room: Type: [facility] Attending Dr: Delfina Trevino APRN, TANK STORAGE SUPERVISOR-C Copies to: Delfina K MyerIFTIKHAR mittal CNP Mourhaf A Traboulssi, MD Ordering Provider: Delfina Trveino APRN, CNP Date of Service: 02/28/23 STR/STR [...] 02/28/23 1041 Signed By: 02/28/23 1546 Normal [facility] Serum or plasma albumin/glob ulin mass ratioOrdered By: Delfina Trevino on 02-28-2023 Albumin/Globulin [Mass ratio] 1.2 {ratio} [facility] Serum or plasma anion gap de terminationOrdered By: Delfina Trevino on 02-28-2023 Anion gap [Moles/Vol] 13.2 mmol/L 6.0-15.0 [facility] Sodium [Moles/volume] in Ser um or PlasmaOrdered By: Delfina Trevino on 02-28-2023 Sodium [Moles/Vol] 131 mmol/L 136-145 [facility] Urea nitrogen [Mass/volume] in Serum or PlasmaOrdered By: Delfina Trevino on 02-28-2023 Urea nitrogen [Mass/Vol] 27 mg/dL 7-25 [facility] Vitamin D 25 Hydroxy Totalon 02-28-2023 Vitamin D 25 Hydroxy Total 60.0 ng/mL Normal 30-100 [facility] Comment on above: Order Comment: Reaso [...] practice guideline. JCEM. 2010; 96(7):191-. PERFORMED BY: [place] [address] PATHOLOGIST MANAGER PEDIATRIC JOSEY BOUCHER M.D. Performed By: #### H APT, CRP, B12, LUIS ALFREDO, FE and TIBC, CREAT, ADDONUAPLUS, LDH #### [address] #### ANCA PROF #### [facility] , Vitamin D+Metabolites [Mass/ volume] in Serum or PlasmaOrdered By: Delfina Trevino on 02-28-2023 Vitamin D+Metabolites [Mass/Vol] 60.0 ng/mL 30-100 [facility] Comment on above: VITAMIN D STATUS 25( OH)VITAMIN D RANGE (ng/mL) Deficient <20 Insufficient 20 to <30Sufficient 30 to 100Reference: Melissa Green, Hernán BUNDY, et al. Evaluation,treatment, and prevention of vitamin D deficiency; an Endocrine Society clinical practice guideline. JCEM. 2010; 96(7):191-. WBC Auto (Bld) [#/Vol]Ordere d By: Delfina Trevino on 02-28-2023 WBC (Bld) [#/Vol] 10.5 10*3/uL 3.8-11.6 [facility] XR chest 2V*on 02-28-2023 XR chest 2V* [facility] [place] [address] [place] [address] XRay Report Signed Patient: Corie Courtney MR#: [id number] : 1950 Acct:[id number] Age/Sex: 72 / F ADM Date: 02/28/23 Loc: [place] Room: Type: [facility] CLI Attending Dr: Delfina Trevino APRN, TANK STORAGE SUPERVISOR-C Copies to: Delfina Trevino APRN,NAUN Ordering Provider: [...] Jeanna Denton M.D.02/28/2023 9:34 AM Dictation Location: [place] [address] Transcribed By: [facility] 02/28/23 0934 Dictated By: Jeanna Denton MD 02/28/23 0932 Signed By: 02/28/23 0934 Normal [facility] XR hip RT min 2V(w/wo pelvis )*on 12-16-2022 XR hip RT min 2V(w/wo pelvis)* [place] [address] XRay Report Signed Patient: Corie Courtney MR#: [id number] : 1950 Acct:[id number] Age/Sex: 72 / F ADM Date: 12/16/22 Loc: ER Room: Type: [facility] ER Attending Dr: Copies to: Layo Sheridan APRN Ordering Provider: Layo Sheridan APRN Date of Service: 12/16/22 XR/XR hip RT min 2V(w/wo pelvis)*: Extremity Injury, Lower 2 views of the right hip with single view pelvis plain film COMPARISON:None HISTORY:Right groin pain for 3 weeks with extension down the right leg ACUTE FINDINGS:None DEGENERATIVE CHANGE:[id number] contact of the superior portion of the right hip joint with subarticular sclerotic and cystic changes and marginal spurring identified. Moderate left hip degeneration. Mild bilateral SI joint degeneration. SOFT TISSUE FINDINGS:Unremarkable JOINT EFFUSION:None POSTOP CHANGES:None BONY MINERALIZATION:[place] te XR/XR hip RT min 2V(w/wo pelvis)* IMPRESSION:Extensive right hip degeneration. Impression dictated by: Akil Osman M.D.12/16/2022 6:52 PM Dictation Location: [place] [address] Transcribed By: [facility] 12/16/221851 Dictated By: Akil Osman DO 12/16/221849 Signed By: 12/16/221851 Normal [facility] ANCA Profile (ANCA+MPO+PR3)o n 06-16-2022 Antimyeloperoxidase (MPO) Abs 2.5 High 0.0-0.9 [facility] Comment on above: Performed By: #### A SHILPAONUAPLUS, CUU #### [address] Atypical pANCA 1:160 High Neg:<1:20 [facility] Comment on above: Result Comment: The atypical pANCA pattern has been observed in a significant percentage of patients with ulcerative colitis, primary sclerosing cholangitis and autoimmune hepatitis. Performed at: - [facility] [id number] Scarifier Operator: Kirsten Sosa MD, Phone: [phone] Performed at: [facility] [id number] Scarifier Operator: Stone Tucker PhD, Phone: [phone] Performed By: #### A DDONUAPLUS, CUU #### [facility] [address] [place] [address] [place] Cytoplasmic (C-ANCA) <1:20 Normal Neg:<1:20 [facility] Comment on above: Performed By: #### A DDONUAPLUS, CUU #### [facility] [address] [place] [address] [place] Perinuclear (P-ANCA) <1:20 Normal Neg:<1:20 [facility] Comment on above: Result Comment: The presence of positive fluorescence exhibiting P-ANCA or C-ANCA patterns alone is not specific for the diagnosis of Jana's Granulomatosis (WG) or microscopic polyangiitis. Decisions about treatment should not be based solely on ANCA IFA results. The International ANCA Group Consensus recommends follow up testing of positive sera with both VT- 3 and MPO-ANCA enzyme immunoassays. As many as 5% serum samples are positive only by EIA. Ref. AM J Clin Pathol 1999;111:507-513. Performed By: #### A DDONUAPLUS, CUU #### [address] Proteinase 3 (PR3) Antibodies <0.2 Normal 0.0-0.9 [facility] Comment on above: Result Comment: PERF ORMED BY: [place] [address] PATHOLOGIST MANAGER PEDIATRIC JOSEY BOUCHER M.D. Performed By: #### A DDONUAPLUS, CUU #### [place] [address] [place] C-Reactive Proteinon 022 C-Reactive Protein 3.7 mg/dL High 0.0-1.0 [facility] Comment on above: Performed By: #### A DDONUAPLUS, CUU #### [address] Complete Blood Count Auto Di ffon 06-16-2022 Basophils (Bld) [#/Vol] 0.1 10*3/uL Normal 0.0-0.2 [facility] Comment on above: Order Comment: BLOOD SMEAR Performed By: #### E SR, RETIC, CBC #### [place] [address] [place] Basophils/100 WBC (Bld) 1.0 % Normal . F [facility] Comment on above: Order Comment: BLOOD SMEAR Performed By: #### E SR, RETIC, CBC #### [place] [address] [place] Eosinophils (Bld) [#/Vol] 0.4 10*3/uL Normal 0.0-0.45 [facility] Comment on above: Order Comment: BLOOD SMEAR Performed By: #### E SR, RETIC, CBC #### [address] Eosinophils/100 WBC (Bld) 4.5 % Normal . [facility] Comment on above: Order Comment: BLOOD SMEAR Performed By: #### E SR, RETIC, CBC #### [address] Erythrocyte distribution width (RBC) [Ratio] 18.1 % High 11.9-15.3 [facility] Comment on above: Order Comment: BLOOD SMEAR Performed By: #### E SR, RETIC, CBC #### [address] Hematocrit (Bld) [Volume fraction] 32.8 % Low 34.0-46.4 [facility] Comment on above: Order Comment: BLOOD SMEAR Performed By: #### E SR, RETIC, CBC #### [address] Hemoglobin (Bld) [Mass/Vol] 10.6 g/dL Low 11.8-15.4 [facility] Comment on above: Order Comment: BLOOD SMEAR Performed By: #### E SR, RETIC, CBC #### [address] Lymphocytes (Bld) [#/Vol] 2.4 10*3/uL Normal 1.00-4.8 [facility] Comment on above: Order Comment: BLOOD SMEAR Performed By: #### E SR, RETIC, CBC #### [place] [address] [place] Lymphocytes/100 WBC (Bld) 25.9 % Normal . [facility] Comment on above: Order Comment: BLOOD SMEAR Performed By: #### E SR, RETIC, CBC #### [address] MCH (RBC) [Entitic mass] 25.2 pg Normal 24.7-34.3 [facility] Comment on above: Order Comment: BLOOD SMEAR Performed By: #### E SR, RETIC, CBC #### [facility] [address] [place] [address] [place] MCV (RBC) [Entitic vol] 78.1 fL Low 80-100 F [facility] Comment on above: Order Comment: BLOOD SMEAR Performed By: #### E SR, RETIC, CBC #### [facility] [address] [place] [address] [place] Mean Corpuscular HGB Conc 32.3 g/dL Normal 32.0-35.0 [facility] Comment on above: Order Comment: BLOOD SMEAR Performed By: #### E SR, RETIC, CBC #### [facility] [address] [place] [address] [place] Monocytes (Bld) [#/Vol] 0.7 10*3/uL Normal 0.0-0.8 [facility] Comment on above: Order Comment: BLOOD SMEAR Performed By: #### E SR, RETIC, CBC #### [facility] [address] [place] [address] [place] Monocytes/100 WBC (Bld) 7.1 % Normal . F [facility] Comment on above: Order Comment: BLOOD SMEAR Performed By: #### E SR, RETIC, CBC #### [place] [address] [place] Neutrophils (Bld) [#/Vol] 5.8 10*3/uL Normal 1.8-7.7 [facility] Comment on above: Order Comment: BLOOD SMEAR Performed By: #### E SR, RETIC, CBC #### [place] [address] [place] Neutrophils/100 WBC (Bld) 61.5 % Normal . [facility] Comment on above: Order Comment: BLOOD SMEAR Performed By: #### E SR, RETIC, CBC #### [facility] [address] [place] [address] [place] Nucleated RBC/100 WBC (Bld) [Ratio] 0.1 % Normal 0-0.5 [facility] Comment on above: Order Comment: BLOOD SMEAR Performed By: #### E SR, RETIC, CBC #### [facility] [address] Platelet mean volume (Bld) [Entitic vol] 7.3 fL Normal 6.3-10.7 [facility] Comment on above: Order Comment: BLOOD SMEAR Performed By: #### E SR, RETIC, CBC #### [facility] [address] Platelets (Bld) [#/Vol] 694 10*3/uL High 150-450 [facility] Comment on above: Order Comment: BLOOD SMEAR Performed By: #### E SR, RETIC, CBC #### [facility] [address] [place] [address] [place] RBC (Bld) [#/Vol] 4.20 10*6/uL Normal 3.60-5.00 [facility] Comment on above: Order Comment: BLOOD SMEAR Performed By: #### E SR, RETIC, CBC #### [place] [address] [place] WBC (Bld) [#/Vol] 9.4 10*3/uL Normal 4.5-11.0 [facility] Comment on above: Order Comment: BLOOD SMEAR Performed By: #### E SR, RETIC, CBC #### [address] Basophils (Bld) [#/Vol] 0.1 10*3/uL Normal 0.0-0.2 [facility] Comment on above: Order Comment: Reaso n for Exam Anemia, unspecified type Result Comment: PERF ORMED BY: [place] [address] PATHOLOGIST MANAGER PEDIATRIC JOSEY BOUCHER M.D. Performed By: #### A GUSTAVO CUU #### [address] Basophils/100 WBC (Bld) 1.1 % Normal . [facility] Comment on above: Order Comment: Reaso n for Exam Anemia, unspecified type Performed By: #### A DDLEVUAMARIAM, CUU #### [address] Eosinophils (Bld) [#/Vol] 0.4 10*3/uL Normal 0.0-0.45 [facility] Comment on above: Order Comment: Reaso n for Exam Anemia, unspecified type Performed By: #### A DDONUAPLUS, CUU #### [place] [address] [place] Eosinophils/100 WBC (Bld) 3.9 % Normal . [facility] Comment on above: Order Comment: Reaso n for Exam Anemia, unspecified type Performed By: #### A DDONUAPLUS, CUU #### [address] Erythrocyte distribution width (RBC) [Ratio] 18.2 % High 11.9-15.3 [facility] Comment on above: Order Comment: Reaso n for Exam Anemia, unspecified type Performed By: #### A DDONUAPLUS, CUU #### [address] Hematocrit (Bld) [Volume fraction] 34.3 % Normal 34.0-46.4 [facility] Comment on above: Order Comment: Reaso n for Exam Anemia, unspecified type Performed By: #### A DDONUAPLUS, CUU #### [address] Hemoglobin (Bld) [Mass/Vol] 10.9 g/dL Low 11.8-15.4 [facility] Comment on above: Order Comment: Reaso n for Exam Anemia, unspecified type Performed By: #### A DDONUAPLUS, CUU #### [place] [address] [place] Lymphocytes (Bld) [#/Vol] 2.5 10*3/uL Normal 1.00-4.8 [facility] Comment on above: Order Comment: Reaso n for Exam Anemia, unspecified type Performed By: #### A DDONUAPLUS, CUU #### [place] [address] [place] Lymphocytes/100 WBC (Bld) 25.9 % Normal . [facility] Comment on above: Order Comment: Reaso n for Exam Anemia, unspecified type Performed By: #### A DDONUAPLUS, CUU #### [facility] [address] MCH (RBC) [Entitic mass] 24.9 pg Normal 24.7-34.3 [facility] Comment on above: Order Comment: Reaso n for Exam Anemia, unspecified type Performed By: #### A DDONUAPLUS, CUU #### [address] MCV (RBC) [Entitic vol] 78.6 fL Low 80-100 F [facility] Comment on above: Order Comment: Reaso n for Exam Anemia, unspecified type Performed By: #### A DDONUAPLUS, CUU #### [facility] [address] [place] [address] Mean Corpuscular HGB Conc 31.7 g/dL Low 32.0-35.0 [facility] Comment on above: Order Comment: Reaso n for Exam Anemia, unspecified type Performed By: #### A DDONUAPLUS, CUU #### [facility] [address] [place] [address] [place] Monocytes (Bld) [#/Vol] 0.7 10*3/uL Normal 0.0-0.8 [facility] Comment on above: Order Comment: Reaso n for Exam Anemia, unspecified type Performed By: #### A DDONUAPLUS, CUU #### [facility] [address] [place] [address] [place] Monocytes/100 WBC (Bld) 6.8 % Normal . F [facility] Comment on above: Order Comment: Reaso n for Exam Anemia, unspecified type Performed By: #### A DDONUAPLUS, CUU #### [place] [address] [place] Neutrophils (Bld) [#/Vol] 6.0 10*3/uL Normal 1.8-7.7 [facility] Comment on above: Order Comment: Reaso n for Exam Anemia, unspecified type Performed By: #### A DDONUAPLUS, CUU #### [facility] [address] [place] [address] [place] Neutrophils/100 WBC (Bld) 62.3 % Normal . [facility] Comment on above: Order Comment: Reaso n for Exam Anemia, unspecified type Performed By: #### A DDONUAPLUS, CUU #### [facility] [address] [place] [address] [place] Nucleated RBC/100 WBC (Bld) [Ratio] 0.1 % Normal 0-0.5 [facility] Comment on above: Order Comment: Reaso n for Exam Anemia, unspecified type Performed By: #### A DDONUAPLUS, CUU #### [place] [address] [place] Platelet mean volume (Bld) [Entitic vol] 7.6 fL Normal 6.3-10.7 [facility] Comment on above: Order Comment: Reaso n for Exam Anemia, unspecified type Performed By: #### A DDONUAPLUS, CUU #### [facility] [address] [place] [address] [place] Platelets (Bld) [#/Vol] 594 10*3/uL High 150-450 [facility] Comment on above: Order Comment: Reaso n for Exam Anemia, unspecified type Performed By: #### A DDONUAPLUS, CUU #### [facility] [address] [place] [address] [place] RBC (Bld) [#/Vol] 4.36 10*6/uL Normal 3.60-5.00 [facility] Comment on above: Order Comment: Reaso n for Exam Anemia, unspecified type Performed By: #### A DDONUAPLUS, CUU #### [facility] [address] [place] [address] [place] WBC (Bld) [#/Vol] 9.7 10*3/uL Normal 4.5-11.0 [facility] Comment on above: Order Comment: Reaso n for Exam Anemia, unspecified type Performed By: #### A DDONUAPLUS, CUU #### [facility] [address] [place] [address] Comprehensive Metabolic Pane dinora 06-16-2022 Albumin [Mass/Vol] 3.1 g/dL Low 3.2-5.5 [facility] Comment on above: Order Comment: Reaso n for Exam Essential (primary) hypertension Performed By: #### A GUSTAVO, CUU #### [address] Albumin/Globulin [Mass ratio] 0.8 {ratio} Normal [facility] Comment on above: Order Comment: Reaso n for Exam Essential (primary) hypertension Performed By: #### A GUSTAVO, CUU #### [address] ALP [Catalytic activity/Vol] 130 U/L High 32-92 [facility] Comment on above: Order Comment: Reaso n for Exam Essential (primary) hypertension Result Comment: PERF ORMED BY: [place] [address] PATHOLOGIST MANAGER PEDIATRIC JOSEY BOUCHER M.D. Performed By: #### A GUSTAVO, CUU #### [address] ALT [Catalytic activity/Vol] 17 U/L Normal 10-60 [facility] Comment on above: Order Comment: Reaso n for Exam Essential (primary) hypertension Performed By: #### A DDCONNIE, CUU #### [address] Anion gap [Moles/Vol] 12.3 mmol/L Normal 6.0-15.0 [facility] Comment on above: Order Comment: Reaso n for Exam Essential (primary) hypertension Performed By: #### A DDONUAPLUS, CUU #### [address] AST [Catalytic activity/Vol] 18 U/L Normal 10-42 [facility] Comment on above: Order Comment: Reaso n for Exam Essential (primary) hypertension Performed By: #### A DDONUAPLUS, CUU #### [facility] [address] [place] [id number] [place] Bilirubin [Mass/Vol] 0.5 mg/dL Normal 0.3-1.2 [facility] Comment on above: Order Comment: Reaso n for Exam Essential (primary) hypertension Performed By: #### A DDONUAPLUS, CUU #### [facility] [address] [place] [id number] [facility] Calcium [Mass/Vol] 9.5 mg/dL Normal 8.2-10.2 [facility] Comment on above: Order Comment: Reaso n for Exam Essential (primary) hypertension Performed By: #### A DDONUAPLUS, CUU #### [facility] [address] [place] [id number] [facility] Chloride [Moles/Vol] 98 mmol/L Normal 95-114 [facility] Comment on above: Order Comment: Reaso n for Exam Essential (primary) hypertension Performed By: #### A DDONUAPLUS, CUU #### [facility] [address] [place] [id number] [facility] CO2 [Moles/Vol] 23.2 mmol/L Normal 22.0-30.0 [facility] Comment on above: Order Comment: Reaso n for Exam Essential (primary) hypertension Performed By: #### A DDONUAPLUS, CUU #### [facility] [address] [place] [id number] [place] Creatinine [Mass/Vol] 1.02 mg/dL Normal 0.44-1.03 [facility] Comment on above: Order Comment: Reaso n for Exam Essential (primary) hypertension Performed By: #### A DDONUAPLUS, CUU #### [facility] [address] [place] [id number] [place] Estimated GFR ( Ysabel > 60 Normal [facility] Comment on above: Order Comment: Reaso n for Exam Essential (primary) hypertension Result Comment: GFR estimated reference range: According to KDOQI guidelines, <60 ml/min/1.73m2 is sufficient to diagnose a patient with chronic kidney disease. Performed By: #### A DDONUAPLUS, CUU #### [facility] [address] Estimated GFR (Non- Am 54 Normal [facility] Comment on above: Order Comment: Reaso n for Exam Essential (primary) hypertension Performed By: #### A DDONUAPLUS, CUU #### [facility] [address] Globulin (S) [Mass/Vol] 3.9 g/dL Normal [facility] Comment on above: Order Comment: Reaso n for Exam Essential (primary) hypertension Performed By: #### A DDONUAPLUS, CUU #### [facility] [address] Glucose [Mass/Vol] 87 mg/dL Normal 70-100 [facility] Comment on above: Order Comment: Reaso n for Exam Essential (primary) hypertension Result Comment: Morse Glucose Reference Range is dependent on time and content of last meal. Glucose of more than 200 mg/dL in a nonstressed, ambulatory subject supports the diagnosis of Diabetes Mellitus. ADA recommended reference range Performed By: #### A DDONUAPLUS, CUU #### [address] Potassium [Moles/Vol] 4.5 mmol/L Normal 3.5-5.1 [facility] Comment on above: Order Comment: Reaso n for Exam Essential (primary) hypertension Performed By: #### A DDONUAPLUS, CUU #### [address] Protein [Mass/Vol] 7.0 g/dL Normal 6.1-7.9 [facility] Comment on above: Order Comment: Reaso n for Exam Essential (primary) hypertension Performed By: #### A DDONUAPLUS, CUU #### [address] Sodium [Moles/Vol] 129 mmol/L Low 136-146 [facility] Comment on above: Order Comment: Reaso n for Exam Essential (primary) hypertension Performed By: #### A DDONUAPLUS, CUU #### [address] Urea nitrogen [Mass/Vol] 14 mg/dL Normal 9-23 [facility] Comment on above: Order Comment: Reaso n for Exam Essential (primary) hypertension Performed By: #### A DDONUAPLUS, CUU #### [address] Creatinineon 06-16-2022 Creatinine [Mass/Vol] 0.98 mg/dL Normal 0.44-1.03 [facility] Comment on above: Performed By: #### H APT, CRP, B12, LUIS ALFREDO, FE and TIBC, CREAT, ADDONUAPLUS, LDH #### [address] #### ANCA PROF #### [facility] , Estimated GFR ( Ysabel > 60 Normal [facility] Comment on above: Result Comment: GFR estimated reference range: According to KDOQI guidelines, <60 ml/min/1.73m2 is sufficient to diagnose a patient with chronic kidney disease. Performed By: #### H APT, CRP, B12, LUIS ALFREDO, FE and TIBC, CREAT, ADDONUAPLUS, LDH #### [address] #### ANCA PROF #### [facility] , Estimated GFR (Non- Am 56 Normal [facility] Comment on above: Performed By: #### H APT, CRP, B12, LUIS ALFREDO, FE and TIBC, CREAT, ADDONUAPLUS, LDH #### [address] #### ANCA PROF #### [facility] , Dipstick and Microscopicon 1 Appearance (U) Clear Normal Clear [facility] Comment on above: Order Comment: Name Collection Type:: Clean-Voided Midstream Performed By: #### H APT, CRP, B12, LUIS ALFREDO, FE and TIBC, CREAT, ADDONUAPLUS, LDH #### [facility] [address] [place] [address] #### ANCA PROF #### [facility] , Bacteria,Urine None Seen Normal None Seen [facility] Comment on above: Order Comment: Name Collection Type:: Clean-Voided Midstream Performed By: #### H APT, CRP, B12, LUIS ALFREDO, FE and TIBC, CREAT, ADDONUAPLUS, LDH #### [facility] [address] [place] [address] #### ANCA PROF #### [facility] , Bilirubin,Urine Negative Normal Negative [facility] Comment on above: Order Comment: Name Collection Type:: Clean-Voided Midstream Performed By: #### H APT, CRP, B12, LUIS ALFREDO, FE and TIBC, CREAT, ADDONUAPLUS, LDH #### [facility] [address] [place] [address] #### ANCA PROF #### [facility] , Color (U) Yellow Normal Yellow [facility] Comment on above: Order Comment: Name Collection Type:: Clean-Voided Midstream Performed By: #### H APT, CRP, B12, LUIS ALFREDO, FE and TIBC, CREAT, ADDONUAPLUS, LDH #### [facility] [address] [place] [address] #### ANCA PROF #### [facility] , Glucose Ql (U) Normal Normal Normal [facility] Comment on above: Order Comment: Name Collection Type:: Clean-Voided Midstream Performed By: #### H APT, CRP, B12, LUIS ALFREDO, FE and TIBC, CREAT, ADDONUAPLUS, LDH #### [facility] [address] [place] [address] [place] #### ANCA PROF #### [facility] , Hyaline Casts,Urine None Seen Normal 0-8 [facility] Comment on above: Order Comment: Name Collection Type:: Clean-Voided Midstream Result Comment: PERF ORMED BY: [place] [address] PATHOLOGIST MANAGER PEDIATRIC JOSEY BOUCHER M.D. Performed By: #### H APT, CRP, B12, LUIS ALFREDO, FE and TIBC, CREAT, ADDONUAPLUS, LDH #### [address] #### ANCA PROF #### [facility] , Ketones Ql (U) Negative Normal Negative [facility] Comment on above: Order Comment: Name Collection Type:: Clean-Voided Midstream Performed By: #### H APT, CRP, B12, LUIS ALFREDO, FE and TIBC, CREAT, ADDONUAPLUS, LDH #### [address] #### ANCA PROF #### [facility] , Leukocyte esterase Test strip Ql (U) Negative Normal Negative [facility] Comment on above: Order Comment: Name Collection Type:: Clean-Voided Midstream Performed By: #### H APT, CRP, B12, LUIS ALFREDO, FE and TIBC, CREAT, ADDONUAPLUS, LDH #### [address] #### ANCA PROF #### [facility] , Nitrite,Urine Negative Normal Negative [facility] Comment on above: Order Comment: Name Collection Type:: Clean-Voided Midstream Performed By: #### H APT, CRP, B12, LUIS ALFREDO, FE and TIBC, CREAT, ADDONUAPLUS, LDH #### [facility] [address] [place] [address] [place] #### ANCA PROF #### [facility] , Occult Blood,Urine Negative Normal Negative [facility] Comment on above: Order Comment: Name Collection Type:: Clean-Voided Midstream Performed By: #### H APT, CRP, B12, LUIS ALFREDO, FE and TIBC, CREAT, ADDONUAPLUS, LDH #### [facility] [address] [place] [address] [place] #### ANCA PROF #### [facility] , pH (U) 6.0 [pH] Normal 5.0-9.0 [facility] Comment on above: Order Comment: Name Collection Type:: Clean-Voided Midstream Performed By: #### H APT, CRP, B12, LUIS ALFREDO, FE and TIBC, CREAT, ADDONUAPLUS, LDH #### [facility] [address] [place] [address] #### ANCA PROF #### [facility] , Protein,Urine Negative Normal Negative [facility] Comment on above: Order Comment: Name Collection Type:: Clean-Voided Midstream Performed By: #### H APT, CRP, B12, LUIS ALFREDO, FE and TIBC, CREAT, ADDONUAPLUS, LDH #### [address] #### ANCA PROF #### [facility] , RBC,Urine None Seen Normal 0-4 [facility] Comment on above: Order Comment: Name Collection Type:: Clean-Voided Midstream Performed By: #### H APT, CRP, B12, LUIS ALFREDO, FE and TIBC, CREAT, ADDONUAPLUS, LDH #### [facility] [address] [place] [address] #### ANCA PROF #### [facility] , Specificy [place],Urine 1.005 Normal 1.001-1.030 [facility] Comment on above: Order Comment: Name Collection Type:: Clean-Voided Midstream Performed By: #### H APT, CRP, B12, LUIS ALFREDO, FE and TIBC, CREAT, ADDONUAPLUS, LDH #### [address] #### ANCA PROF #### [facility] , Squamous Epithelial Cell,Urine 0-1 Normal 0-2 [facility] Comment on above: Order Comment: Name Collection Type:: Clean-Voided Midstream Performed By: #### H APT, CRP, B12, LUIS ALFREDO, FE and TIBC, CREAT, ADDONUAPLUS, LDH #### [address] [place] [address] [place] #### ANCA PROF #### [facility] , Urobilinogen,Urine Normal Normal Normal [facility] Comment on above: Order Comment: Name Collection Type:: Clean-Voided Midstream Performed By: #### H APT, CRP, B12, LUIS ALFREDO, FE and TIBC, CREAT, ADDONUAPLUS, LDH #### [facility] [address] [place] [address] #### ANCA PROF #### [facility] , WBC,Urine None Seen Normal 0-4 [facility] Comment on above: Order Comment: Name Collection Type:: Clean-Voided Midstream Performed By: #### H APT, CRP, B12, LUIS ALFREDO, FE and TIBC, CREAT, ADDONUAPLUS, LDH #### [address] #### ANCA PROF #### [facility] , Direct [place] 06-16-2022 Polyspecific AHG Negative Normal [facility] Comment on above: Result Comment: PERF ORMED BY: [place] [address] PATHOLOGIST MANAGER PEDIATRIC JOSEY BOUCHER M.D. Erythrocyte Sedimentation Ra lydia 06-16-2022 ESR (Bld) [Velocity] 79 mm/h High 0-29 [facility] Comment on above: Order Comment: BLOOD SMEAR Result Comment: PERF ORMED BY: [place] [address] PATHOLOGIST MANAGER PEDIATRIC JOSEY BOUCHER M.D. Performed By: #### E SR, RETIC, CBC #### [address] Ferritinon 06-16-2022 Ferritin [Mass/Vol] 22.6 ng/mL Normal 11-306.8 [facility] Comment on above: Performed By: #### A DDONUAPLUS, CUU #### [address] Haptoglobinon 06-16-2022 Haptoglobin 274 mg/dL High 37-246 [facility] Comment on above: Result Comment: PERF ORMED BY: [place] [address] PATHOLOGIST MANAGER PEDIATRIC JOSEY BOUCHER M.D. Performed By: #### H APT, CRP, B12, LUIS ALFREDO, FE and TIBC, CREAT, ADDONUAPLUS, LDH #### [facility] [address] [place] [address] #### ANCA PROF #### [facility] , Iron and TIBC Profileon 10 % Iron Saturation 4.0 % Low 20-50 [facility] Comment on above: Performed By: #### H APT, CRP, B12, LUIS ALFREDO, FE and TIBC, CREAT, ADDONUAPLUS, LDH #### [facility] [address] [place] [address] #### ANCA PROF #### [facility] , Iron [Mass/Vol] 23 ug/dL Low 40-150 [facility] Comment on above: Performed By: #### H APT, CRP, B12, LUIS ALFREDO, FE and TIBC, CREAT, ADDONUAPLUS, LDH #### [address] #### ANCA PROF #### [facility] , Total Iron Binding Capacity 461 ug/dL High 255-450 [facility] Comment on above: Performed By: #### H APT, CRP, B12, LUIS ALFREDO, FE and TIBC, CREAT, ADDONUAPLUS, LDH #### [facility] [address] [place] [address] [place] #### ANCA PROF #### [facility] , Transferrin [Mass/Vol] 329 mg/dL Normal 180-380 [facility] Comment on above: Performed By: #### H APT, CRP, B12, LUIS ALFREDO, FE and TIBC, CREAT, ADDONUAPLUS, LDH #### [address] [place] [address] [place] #### ANCA PROF #### [facility] , LDH Lactate Dehydrogenaseon 06-16-2022 LDH Lactate Dehydrogenase 181 U/L Normal 45-190 [facility] Comment on above: Performed By: #### H APT, CRP, B12, LUIS ALFREDO, FE and TIBC, CREAT, ADDONUAPLUS, LDH #### [address] #### ANCA PROF #### [facility] , Reticulocyte Counton 022 Reticulocyte Number 0.054 10*6/uL Normal 0.024-0.084 F [facility] Comment on above: Order Comment: BLOOD SMEAR Performed By: #### E SR, RETIC, CBC #### [address] Reticulocyte Percent 1.3 % Normal 0.5-1.5 [facility] Comment on above: Order Comment: BLOOD SMEAR Performed By: #### E SR, RETIC, CBC #### [address] Vitamin B12on 06-16-2022 Cobalamin (Vitamin B12) [Mass/Vol] 467 pg/mL Normal 180-914 [facility] Comment on above: Result Comment: PERF ORMED BY: [place] [address] PATHOLOGIST MANAGER PEDIATRIC JOSEY BOUCHER M.D. Performed By: #### A DDONUAPLUS, CUU #### [address] Albumin [Mass/volume] in Ser um or PlasmaOrdered By: Mark Avila on 05-12-2022 Albumin [Mass/Vol] 2.8 g/dL 3.2-5.5 [facility] Alkaline Phosphatase Isoenzy meon 05-12-2022 ALP [Catalytic activity/Vol] 136 U/L High 44-121 [facility] Comment on above: Order Comment: Name Collection Type:: Clean-Voided Midstream Performed By: #### H APT, CRP, B12, LUIS ALFREDO, FE and TIBC, CREAT, ADDONUAPLUS, LDH #### [facility] [address] [place] [address] [place] #### ANCA PROF #### [facility] , Bone Fraction 5 % Low 14-68 [facility] Comment on above: Order Comment: Name Collection Type:: Clean-Voided Midstream Performed By: #### H APT, CRP, B12, LUIS ALFREDO, FE and TIBC, CREAT, ADDONUAPLUS, LDH #### [facility] [address] [place] [address] [place] #### ANCA PROF #### [facility] , Intestinal Fraction 94 % High 0-18 [facility] Comment on above: Order Comment: Name Collection [...] erosive or ulcerative mucosal lesion. Performed at: [address] [id number] Scarifier Operator: Stone Tucker PhD, Phone: [phone] PERFORMED BY: [place] [address] PATHOLOGIST MANAGER PEDIATRIC JOSEY BOUCHER M.D. Performed By: #### H APT, CRP, B12, LUIS ALFREDO, FE and TIBC, CREAT, ADDONUAPLUS, LDH #### [facility] [address] [place] [address] [place] #### ANCA PROF #### [facility] , Liver Fraction 1 % Low 18-85 [facility] Comment on above: Order Comment: Name Collection Type:: Clean-Voided Midstream Performed By: #### H APT, CRP, B12, LUIS ALFREDO, FE and TIBC, CREAT, ADDONUAPLUS, LDH #### [facility] [address] [place] [address] #### ANCA PROF #### [facility] , Anti-dsDNA(DBL)Abon 05-12-20 22 Anti-dsDNA(DBL)Ab <1 Normal 0-9 [facility] Comment on above: Result Comment: Nega tive <5 Equivocal 5 - 9 Positive >9 Performed at: - [facility] [id number] Scarifier Operator: Stone Tucker PhD, Phone: [phone] PERFORMED BY: [place] [address] PATHOLOGIST MANAGER PEDIATRIC JOSEY BOUCHER M.D. Performed By: #### E SR, RETIC, CBC #### [facility] [address] [place] [address] Automated erythrocytes count in urine sediment (number/area)Ordered By: Mark Avila on 05-12-2022 RBC Auto (Urine sed) [#/Area] 3-4 [HPF] 0-4 [facility] Automated leukocytes count i n urine sediment (number/area)Ordered By: Mark Avila on 05-12-2022 WBC Auto (Urine sed) [#/Area] 3-4 [HPF] 0-4 [facility] Basophils Auto (Bld) [#/Vol] Ordered By: Mark Avila on 05-12-2022 Basophils (Bld) [#/Vol] 0.1 10*3/uL 0.0-0.2 [facility] Basophils/100 WBC Auto (Bld) Ordered By: Mark Avila on 05-12-2022 Basophils/100 WBC (Bld) 1.5 % . F [facility] Bilirubin Test strip Ql (U)O rdered By: Mark Avila on 05-12-2022 Bilirubin Ql (U) Negative Negative [facility] Blood hemoglobin measurement (mass/volume)Ordered By: Mark Avila on 05-12-2022 Hemoglobin (Bld) [Mass/Vol] 9.4 g/dL 11.8-15.4 [facility] Blood leukocytes automated c ount (number/volume)Ordered By: Mark Avila on 05-12-2022 WBC (Bld) [#/Vol] 9.5 10*3/uL 4.5-11.0 [facility] C reactive protein [Mass/vol ume] in Serum or PlasmaOrdered By: Mark Avila on 05-12-2022 CRP [Mass/Vol] 7.1 mg/dL 0.0-1.0 [facility] C-Reactive Proteinon 022 C-Reactive Protein 7.1 mg/dL High 0.0-1.0 [facility] Comment on above: Performed By: #### E SR, RETIC, CBC #### [facility] [address] [place] [address] Color Auto (U)Ordered By: Claudine Avila on 05-12-2022 Color (U) Yellow Yellow [facility] Complement C3on 05-12-2022 Complement C3 135 mg/dL Normal 82-167 [facility] Comment on above: Order Comment: Name Collection Type:: Clean-Voided Midstream Result Comment: Perf ormed at: - [facility] [address] [id number] Scarifier Operator: Stone Tucker PhD, Phone: [phone] Performed By: #### H APT, CRP, B12, LUIS ALFREDO, FE and TIBC, CREAT, ADDONUAPLUS, LDH #### [facility] [address] [place] [address] #### ANCA PROF #### [facility] , Complement C4on 05-12-2022 Complement C4 28 mg/dL Normal 12-38 [facility] Comment on above: Order Comment: Name Collection Type:: Clean-Voided Midstream Performed By: #### H APT, CRP, B12, LUIS ALFREDO, FE and TIBC, CREAT, ADDONUAPLUS, LDH #### [facility] [address] #### ANCA PROF #### [facility] , Complement Total (CH50)on Complement Total (CH50) >60 Normal >41 F [facility] Comment on above: Order Comment: Name Collection [...] determine out of range values. Performed at: [address] [id number] Scarifier Operator: Stone Tucker PhD, Phone: [phone] Performed By: #### H APT, CRP, B12, LUIS ALFREDO, FE and TIBC, CREAT, ADDONUAPLUS, LDH #### [address] #### ANCA PROF #### [facility] , Complete Blood Count Auto Di ffon 05-12-2022 Basophils (Bld) [#/Vol] 0.1 10*3/uL Normal 0.0-0.2 [facility] Comment on above: Performed By: #### A DDONUAPLUS, CUU #### [place] [address] [place] Basophils/100 WBC (Bld) 1.5 % Normal . F [facility] Comment on above: Performed By: #### A DDONUAPLUS, CUU #### [place] [address] [place] Eosinophils (Bld) [#/Vol] 1.1 10*3/uL High 0.0-0.45 [facility] Comment on above: Performed By: #### A DDONUAPLUS, CUU #### [place] [address] [place] Eosinophils/100 WBC (Bld) 11.9 % Normal . [facility] Comment on above: Performed By: #### A GUSTAVO CUU #### [address] Erythrocyte distribution width (RBC) [Ratio] 17.4 % High 11.9-15.3 [facility] Comment on above: Performed By: #### A GUSTAVO CUU #### [address] Hematocrit (Bld) [Volume fraction] 29.1 % Low 34.0-46.4 [facility] Comment on above: Performed By: #### A GUSTAVO CUU #### [address] Hemoglobin (Bld) [Mass/Vol] 9.4 g/dL Low 11.8-15.4 [facility] Comment on above: Performed By: #### A GUSTAVO CUU #### [address] Lymphocytes (Bld) [#/Vol] 2.0 10*3/uL Normal 1.00-4.8 [facility] Comment on above: Performed By: #### A GUSTAVO CUU #### [address] Lymphocytes/100 WBC (Bld) 21.6 % Normal . [facility] Comment on above: Performed By: #### A GUSTAVO CUU #### [address] MCH (RBC) [Entitic mass] 24.7 pg Normal 24.7-34.3 [facility] Comment on above: Performed By: #### A GUSTAVO CUU #### [address] MCV (RBC) [Entitic vol] 76.9 fL Low 80-100 F [facility] Comment on above: Performed By: #### A GUSTAVO CUU #### [address] [place] [address] [place] Mean Corpuscular HGB Conc 32.1 g/dL Normal 32.0-35.0 [facility] Comment on above: Performed By: #### A GUSTAVO, CUU #### [facility] [address] [place] [address] [place] Monocytes (Bld) [#/Vol] 0.8 10*3/uL Normal 0.0-0.8 [facility] Comment on above: Performed By: #### A ASADUAPLUS, CUU #### [facility] [address] [place] [address] [place] Monocytes/100 WBC (Bld) 8.6 % Normal . [facility] Comment on above: Performed By: #### A GUSTAVO, CUU #### [address] Neutrophils (Bld) [#/Vol] 5.3 10*3/uL Normal 1.8-7.7 [facility] Comment on above: Performed By: #### A GUSTAVO, CUU #### [facility] [address] [place] [address] [place] Neutrophils/100 WBC (Bld) 56.4 % Normal . [facility] Comment on above: Performed By: #### A GUSTAVO, CUU #### [facility] [address] [place] [address] [place] Nucleated RBC/100 WBC (Bld) [Ratio] 0.1 % Normal 0-0.5 [facility] Comment on above: Performed By: #### A ASADUAPLUS, CUU #### [facility] [address] [place] [address] [place] Platelet mean volume (Bld) [Entitic vol] 7.4 fL Normal 6.3-10.7 [facility] Comment on above: Performed By: #### A DDLEVUAPLUS, CUU #### [facility] [address] [place] [address] [place] Platelets (Bld) [#/Vol] 656 10*3/uL High 150-450 [facility] Comment on above: Performed By: #### A GUSTAVO CUU #### [address] RBC (Bld) [#/Vol] 3.78 10*6/uL Normal 3.60-5.00 [facility] Comment on above: Performed By: #### A GUSTAVO CUU #### [address] WBC (Bld) [#/Vol] 9.5 10*3/uL Normal 4.5-11.0 [facility] Comment on above: Performed By: #### A GUSTAVO CUU #### [address] Comprehensive Metabolic Pane dinora 05-12-2022 Albumin [Mass/Vol] 2.8 g/dL Low 3.2-5.5 [facility] Comment on above: Performed By: #### A GUSTAVO CUU #### [address] Albumin/Globulin [Mass ratio] 0.7 {ratio} Normal [facility] Comment on above: Performed By: #### A GUSTAVO CUU #### [address] ALP [Catalytic activity/Vol] 117 U/L High 32-92 [facility] Comment on above: Performed By: #### A GUSTAVO CUU #### [address] ALT [Catalytic activity/Vol] 16 U/L Normal 10-60 [facility] Comment on above: Performed By: #### A GUSTAVO, CUU #### [address] Anion gap [Moles/Vol] 16.1 mmol/L High 6.0-15.0 [facility] Comment on above: Performed By: #### A GUSTAVO, CUU #### [address] [address] [place] AST [Catalytic activity/Vol] 18 U/L Normal 10-42 [facility] Comment on above: Performed By: #### A GUSTAVO, CUU #### [facility] [address] [place] [id number] [facility] Bilirubin [Mass/Vol] 0.4 mg/dL Normal 0.3-1.2 [facility] Comment on above: Performed By: #### A GUSTAVO, CUU #### [facility] [address] Calcium [Mass/Vol] 9.1 mg/dL Normal 8.2-10.2 [facility] Comment on above: Performed By: #### A GUSTAVO, CUU #### [address] Chloride [Moles/Vol] 94 mmol/L Low 95-114 [facility] Comment on above: Performed By: #### A GUSTAVO, CUU #### [address] CO2 [Moles/Vol] 21.3 mmol/L Low 22.0-30.0 [facility] Comment on above: Performed By: #### A GUSTAVO, CUU #### [place] [address] [place] Creatinine [Mass/Vol] 1.92 mg/dL High 0.44-1.03 [facility] Comment on above: Performed By: #### A GUSTAVO, CUU #### [address] Estimated GFR ( Ysabel 31 [facility] Comment on above: Result Comment: GFR estimated reference range: According to KDOQI guidelines, <60 ml/min/1.73m2 is sufficient to diagnose a patient with chronic kidney disease. Performed By: #### A DDLEVUAPLUS, CUU #### [place] [address] [place] Estimated GFR (Non- Am 26 [facility] Comment on above: Performed By: #### A DDONUAPLUS, CUU #### [facility] [address] Globulin (S) [Mass/Vol] 3.9 g/dL Normal F [facility] Comment on above: Performed By: #### A DDONUAPLUS, CUU #### [facility] [address] Glucose [Mass/Vol] 85 mg/dL Normal 70-100 [facility] Comment on above: Result Comment: [facility] Glucose Reference Range is dependent on time and content of last meal. Glucose of more than 200 mg/dL in a nonstressed, ambulatory subject supports the diagnosis of Diabetes Mellitus. ADA recommended reference range Performed By: #### A DDONUAPLUS, CUU #### [facility] [address] Potassium [Moles/Vol] 5.4 mmol/L High 3.5-5.1 [facility] Comment on above: Performed By: #### A DDONUAPLUS, CUU #### [facility] [address] [place] [address] [place] Protein [Mass/Vol] 6.7 g/dL Normal 6.1-7.9 [facility] Comment on above: Performed By: #### A DDONUAPLUS, CUU #### [facility] [address] [place] [address] [place] Sodium [Moles/Vol] 126 mmol/L Low 136-146 [facility] Comment on above: Performed By: #### A DDONUAPLUS, CUU #### [facility] [address] [place] [address] [place] Urea nitrogen [Mass/Vol] 26 mg/dL High 9-23 [facility] Comment on above: Performed By: #### A DDONUAPLUS, CUU #### [facility] [address] [place] [address] [place] Creatinine and Glomerular fi ltration rate.predicted panel (S/P/Bld)Ordered By: Mark Avila on 05-12-2022 Creatinine [Mass/Vol] 1.92 mg/dL 0.44-1.03 [facility] Dipstick and Microscopicon 0 05-12-2022 Appearance (U) Clear Normal Clear [facility] Comment on above: Order Comment: Name Collection Type:: Clean-Voided Midstream Performed By: #### A DDONUAPLUS, CUU #### [facility] [address] [place] [address] [place] Bacteria,Urine None Seen Normal None Seen [facility] Comment on above: Order Comment: Name Collection Type:: Clean-Voided Midstream Result Comment: PERF ORMED BY: [place] [address] PATHOLOGIST MANAGER PEDIATRIC JOSEY BOUCHER M.D. Performed By: #### A DDONUAPLUS, CUU #### [facility] [address] [place] [address] [place] Bilirubin,Urine Negative Normal Negative [facility] Comment on above: Order Comment: Name Collection Type:: Clean-Voided Midstream Performed By: #### A DDONUAPLUS, CUU #### [facility] [address] [place] [address] [place] Color (U) Yellow Normal Yellow [facility] Comment on above: Order Comment: Name Collection Type:: Clean-Voided Midstream Performed By: #### A DDONUAPLUS, CUU #### [facility] [address] [place] [address] [place] Glucose Ql (U) Normal Normal Normal [facility] Comment on above: Order Comment: Name Collection Type:: Clean-Voided Midstream Performed By: #### A DDONUAPLUS, CUU #### [facility] [address] [place] [address] [place] Ketones Ql (U) Trace High Negative [facility] Comment on above: Order Comment: Name Collection Type:: Clean-Voided Midstream Performed By: #### A DDONUAPLUS, CUU #### [facility] [address] [place] [address] [place] Leukocyte esterase Test strip Ql (U) 1+ High Negative [facility] Comment on above: Order Comment: Name Collection Type:: Clean-Voided Midstream Performed By: #### A DDONUAPLUS, CUU #### [place] [address] [place] Nitrite,Urine Negative Normal Negative [facility] Comment on above: Order Comment: Name Collection Type:: Clean-Voided Midstream Performed By: #### A DDONUAPLUS, CUU #### [place] [address] [place] Occult Blood,Urine Negative Normal Negative [facility] Comment on above: Order Comment: Name Collection Type:: Clean-Voided Midstream Performed By: #### A DDONUAPLUS, CUU #### [address] pH (U) 5.5 [pH] Normal 5.0-9.0 [facility] Comment on above: Order Comment: Name Collection Type:: Clean-Voided Midstream Performed By: #### A DDONUAPLUS, CUU #### [place] [address] [place] Protein,Urine Trace High Negative [facility] Comment on above: Order Comment: Name Collection Type:: Clean-Voided Midstream Performed By: #### A DDONUAPLUS, CUU #### [place] [address] [place] RBC,Urine 3-4 Normal 0-4 [facility] Comment on above: Order Comment: Name Collection Type:: Clean-Voided Midstream Performed By: #### A DDONUAPLUS, CUU #### [place] [address] [place] Specificy [place],Urine 1.016 Normal 1.001-1.030 [facility] Comment on above: Order Comment: Name Collection Type:: Clean-Voided Midstream Performed By: #### A DDONUAPLUS, CUU #### [place] [address] [place] Squamous Epithelial Cell,Urine 3-4 High 0-2 [facility] Comment on above: Order Comment: Name Collection Type:: Clean-Voided Midstream Performed By: #### A DDONUAPLUS, CUU #### [facility] [address] [place] [address] Urobilinogen,Urine Normal Normal Normal [facility] Comment on above: Order Comment: Name Collection Type:: Clean-Voided Midstream Performed By: #### A DDONUAPLUS, CUU #### [facility] [address] [place] [address] WBC,Urine 3-4 Normal 0-4 [facility] Comment on above: Order Comment: Name Collection Type:: Clean-Voided Midstream Performed By: #### A DDONUAPLUS, CUU #### [facility] [address] [place] [address] Eosinophils Auto (Bld) [#/Vo l]Ordered By: Mark Avila on 05-12-2022 Eosinophils (Bld) [#/Vol] 1.1 10*3/uL 0.0-0.45 [facility] Eosinophils/100 WBC Auto (Bl d)Ordered By: Mark Avila on 05-12-2022 Eosinophils/100 WBC (Bld) 11.9 % . [facility] Erythrocyte Sedimentation Ra lydia 05-12-2022 ESR (Bld) [Velocity] 120 mm/h High [facility] Comment on above: Result Comment: PERF ORMED BY: [place] [address] PATHOLOGIST MANAGER PEDIATRIC JOSEY BOUCHER M.D. Performed By: #### A DDONUAPLUS, CUU #### [facility] [address] [place] [address] Erythrocyte distribution wid th Auto (RBC) [Ratio]Ordered By: Mark Avila on 05-12-2022 Erythrocyte distribution width (RBC) [Ratio] 17.4 % 11.9-15.3 [facility] Erythrocyte sedimentation ra te by Photometric methodOrdered By: Mark Avila on 05-12-2022 ESR Photometric method (Bld) [Velocity] 120 mm/hr [facility] Estimated glomerular filtrat ion rate (GFR) non- AmericanOrdered By: Mark Avila on 05-12-2022 GFR/1.73 sq M.predicted among non-blacks MDRD (S/P/Bld) [Vol rate/Area] 26 mL/Min [facility] Gamma Glutamyl Transpeptidas lai 05-12-2022 Amylase [Catalytic activity/Vol] 16 U/L Normal [facility] Comment on above: Performed By: #### E SR, RETIC, CBC #### [facility] [address] Globulin Calc (S) [Mass/Vol] Ordered By: Mark Avila on 05-12-2022 Globulin (S) [Mass/Vol] 3.9 g/dL F [facility] Hematocrit Auto (Bld) [Volum e fraction]Ordered By: Mark Avila on 05-12-2022 Hematocrit (Bld) [Volume fraction] 29.1 % 34.0-46.4 [facility] Ketones Auto test strip (U) [Mass/Vol]Ordered By: Mark Avila on 05-12-2022 Ketones (U) [Mass/Vol] Trace Negative [facility] - Chemistry and C hemistry - challengeOrdered By: Mark Avila on 05-12-2022 Amylase [Catalytic activity/Vol] 16 U/L [facility] - Hematology and Cell countsOrdered By: Mark Avila on 05-12-2022 Nucleated RBC/100 WBC (Bld) [Ratio] 0.1 % 0-0.5 [facility] - UrinalysisOrder ed By: Mark Avila on 05-12-2022 Hyaline casts LM Ql (Urine sed) N/A [facility] Lymphocytes Auto (Bld) [#/Vo l]Ordered By: Mark Avila on 05-12-2022 Lymphocytes (Bld) [#/Vol] 2.0 10*3/uL 1.00-4.8 [facility] Lymphocytes/100 WBC Auto (Bl d)Ordered By: Mark Avila on 05-12-2022 Lymphocytes/100 WBC (Bld) 21.6 % . [facility] MCH Auto (RBC) [Entitic mass ]Ordered By: Mark Avila on 05-12-2022 MCH (RBC) [Entitic mass] 24.7 pg 24.7-34.3 [facility] MCHC Auto (RBC) [Mass/Vol]Or dered By: Mark Avila on 05-12-2022 MCHC (RBC) [Mass/Vol] 32.1 g/dL 32.0-35.[address] [facility] MCV Auto (RBC) [Entitic vol] Ordered By: Mark Avila on 05-12-2022 MCV (RBC) [Entitic vol] 76.9 fL 80-100 F [facility] Monocytes Auto (Bld) [#/Vol] Ordered By: Mark Avila on 05-12-2022 Monocytes (Bld) [#/Vol] 0.8 10*3/uL 0.0-0.8 [facility] Monocytes/100 WBC Auto (Bld) Ordered By: Mark Avila on 05-12-2022 Monocytes/100 WBC (Bld) 8.6 % . F [facility] Neutrophils Auto (Bld) [#/Vo l]Ordered By: Mark Avila on 05-12-2022 Neutrophils (Bld) [#/Vol] 5.3 10*3/uL 1.8-7.7 [facility] Neutrophils/100 WBC Auto (Bl d)Ordered By: Mark Avila on 05-12-2022 Neutrophils/100 WBC (Bld) 56.4 % . [facility] Nitrite Test strip Ql (U)Ord ered By: Mark Avila on 05-12-2022 Nitrite Ql (U) Negative Negative [facility] No Panel InformationOrdered By: Mark Avila on 05-12-2022 Estimated GFR () 31 mL/Min [facility] Comment on above: GFR estimated refere nce range: According to KDOQI guidelines, <60 ml/min/1.73m2 is sufficient to diagnose a patient with chronic kidney disease. Pharmacy Creatinine Clearance (Chem N/A [facility] Total Complement (CH50) >60 U/mL >41 F [facility] Comment on above: Age Male Female 3 [...] out of range values. Performed at: - [facility] [id number] Scarifier Operator: Stone Tucker PhD, Phone: [phone] Parathyroid Hormone [place] 05-12-2022 Parathyroid Hormone Intact 30.3 pg/mL Normal 12- [facility] Comment on above: Result Comment: PERF ORMED BY: [place] [address] PATHOLOGIST MANAGER PEDIATRIC JOSEY BOUCHER M.D. Performed By: #### E SR, RETIC, CBC #### [address] Platelet mean volume Auto (B ld) [Entitic vol]Ordered By: Mark Avila on 05-12-2022 Platelet mean volume (Bld) [Entitic vol] 7.4 fL 6.3-10.7 [facility] Platelets Auto (Bld) [#/Vol] Ordered By: Mark Avila on 05-12-2022 Platelets (Bld) [#/Vol] 656 10*3/uL 150-450 [facility] Protein Auto test strip (U) [Mass/Vol]Ordered By: Mark Avila on 05-12-2022 Protein (U) [Mass/Vol] Trace mg/dL Negative F [facility] Protein [Mass/volume] in Ser um or PlasmaOrdered By: Mark Avila on 05-12-2022 Protein [Mass/Vol] 6.7 g/dL 6.1-7.9 [facility] RBC Auto (Bld) [#/Vol]Ordere d By: Mark Avila on 05-12-2022 RBC (Bld) [#/Vol] 3.78 10*6/uL 3.60-5.00 [facility] SS-A/Ro Sjogrens Antibodyon 05-12-2022 SS-A/Ro Sjogrens Antibody <0.2 Normal 0.0-0.9 [facility] Comment on above: Performed By: #### E SR, RETIC, CBC #### [facility] [address] [id number] [facility] Serum DNA double strand anti body assay (units/volume)Ordered By: Mark Avila on 05-12-2022 DNA double strand Ab Qn (S) [IU]/mL 0-9 [facility] Comment on above: Negative <5 Equivocal 5 - 9 Positive >9 Performed at: [facility] [id number] Scarifier Operator: Stone Tucker PhD, Phone: [phone] Serum Sjogrens syndrome-A ex tractable nuclear antibody assay (units/volume)Ordered By: Makr Avila on 05-12-2022 Sjogrens syndrome-A extractable nuclear Ab Qn (S) <0.2 AI 0.0-0.9 [facility] Serum or plasma alanine rajan otransferase measurement without P-5'-P (enzymatic activiOrdered By: Mark Avila on 05-12-2022 ALT No additional P-5'-P [Catalytic activity/Vol] 16 U/L 10-60 [facility] Serum or plasma albumin/glob ulin mass ratioOrdered By: Mark Avila on 05-12-2022 Albumin/Globulin [Mass ratio] 0.7 {ratio} [facility] Serum or plasma alkaline kim sphatase measurement (enzymatic activity/volume)Ordered By: Mark Avila on 05-12-2022 ALP [Catalytic activity/Vol] 117 U/L 32-92 [facility] Serum or plasma anion gap de terminationOrdered By: Mark Avila on 05-12-2022 Anion gap [Moles/Vol] 16.1 mmol/L 6.0-15.0 [facility] Serum or plasma aspartate am inotransferase measurement (enzymatic activity/volume)Ordered By: Mark Avila on 05-12-2022 AST [Catalytic activity/Vol] 18 U/L 10-42 [facility] Serum or plasma calcium ervin urement (mass/volume)Ordered By: Mark Avila on 05-12-2022 Calcium [Mass/Vol] 9.1 mg/dL 8.2-10.2 [facility] Serum or plasma chloride zhou surement (moles/volume)Ordered By: Mark Avila on 05-12-2022 Chloride [Moles/Vol] 94 mmol/L 95-114 [facility] Serum or plasma complement C 3 measurement (mass/volume)Ordered By: Mark Avila on 05-12-2022 Complement C3 [Mass/Vol] 135 mg/dL 82-167 [facility] Comment on above: Performed at: [address] [id number] Scarifier Operator: Stone Tucker PhD, Phone: [phone] Serum or plasma complement C 4 measurement (mass/volume)Ordered By: Mark Avila on 05-12-2022 Complement C4 [Mass/Vol] 28 mg/dL 12-38 [facility] Serum or plasma glucose ervin urement (mass/volume)Ordered By: Mark Avila on 05-12-2022 Glucose [Mass/Vol] 85 mg/dL 70-100 [facility] Comment on above: ADA recommended refe rence range Random Glucose Reference Range is dependent on time and content of last meal. Glucose of more than 200 mg/dL in a nonstressed, ambulatory subject supports the diagnosis of Diabetes Mellitus. Serum or plasma intact parat hyroid hormone measurement (mass/volume)Ordered By: Mark Avila on 05-12-2022 Parathyrin.intact [Mass/Vol] 30.3 pg/mL 12-88 [facility] Serum or plasma potassium me asurement (moles/volume)Ordered By: Mark Avila on 05-12-2022 Potassium [Moles/Vol] 5.4 mmol/L 3.5-5.1 [facility] Serum or plasma sodium measu rement (moles/volume)Ordered By: Mark Avila on 05-12-2022 Sodium [Moles/Vol] 126 mmol/L 136-146 [facility] Serum or plasma total biliru bin measurement (mass/volume)Ordered By: Mark Avila on 05-12-2022 Bilirubin [Mass/Vol] 0.4 mg/dL 0.3-1.2 [facility] Serum or plasma total carbon dioxide measurement (moles/volume)Ordered By: Mark Avila on 05-12-2022 CO2 [Moles/Vol] 21.3 mmol/L 22.0-30.0 [facility] Serum or plasma urea nitroge n measurement (mass/volume)Ordered By: Mark Avila on 05-12-2022 Urea nitrogen [Mass/Vol] 26 mg/dL 9-23 [facility] Serum or plasma uric acid me asurement (mass/volume)Ordered By: Mark Avila on 05-12-2022 Urate [Mass/Vol] 6.1 mg/dL 2.6-7.2 [facility] Specific gravity Auto test s trip (U) [Rel density]Ordered By: Mark Avila on 05-12-2022 Specific gravity (U) [Rel density] 1.016 1.001-1.030 [facility] Squamous epithelial cells de tection in urine sediment by light microscopyOrdered By: Mark Avila on 05-12-2022 Epithelial cells.squamous LM Ql (Urine sed) 3-4 [HPF] 0-2 [facility] TSH DL <= 0.005 mIU/L QnOrde red By: Mark Avila on 05-12-2022 TSH Qn 2.66 m[IU]/L 0.45-5.33 [facility] Thyroid Stimulating Hormoneo n 05-12-2022 TSH Qn 2.66 m[IU]/L Normal 0.45-5.33 [facility] Comment on above: Performed By: #### E SR, RETIC, CBC #### [facility] [address] [id number] [place] Uric Acidon 05-12-2022 Urate [Mass/Vol] 6.1 mg/dL Normal 2.6-7.2 [facility] Comment on above: Performed By: #### E SR, RETIC, CBC #### [facility] [address] [id number] [place] Urine bacteria detection by automated methodOrdered By: Mark Avila on 05-12-2022 Bacteria Auto Ql (U) None seen None Seen [facility] Urine clarity by refractomet ry automatedOrdered By: Mark Avila on 05-12-2022 Clarity Refractometry automated (U) Clear Clear [facility] Urine glucose measurement by automated test strip (mass/volume)Ordered By: Mark Avila on 05-12-2022 Glucose Auto test strip (U) [Mass/Vol] Normal mg/dL Normal [facility] Urine hemoglobin detection b y automated test stripOrdered By: Mark Avila on 05-12-2022 Hemoglobin Auto test strip Ql (U) Negative Negative [facility] Urine leukocyte esterase det ection by automated test stripOrdered By: Mark Avila on 05-12-2022 Leukocyte esterase Auto test strip Ql (U) 1+ Negative [facility] Urobilinogen Auto test strip (U) [Mass/Vol]Ordered By: Mark Avila on 05-12-2022 Urobilinogen (U) [Mass/Vol] Normal mg/dL Normal [facility] XR foot BI 2Von 05-12-2022 XR foot BI 2V [place] [address] XRay Report Signed Patient: Corie Courtney MR#: [id number] : 1950 Acct:[id number] Age/Sex: 71 / F ADM Date: 05/12/22 Loc: ICXD Room: Type: [facility] Attending Dr: Mark Avila MD Copies to: Mark Aivla MD Ordering Provider: Mark Avila MD Date of Service: 05/12/22 XR/XR foot BI 2V: pain ([id number]) XR/XR ankle BI 2V: pain 2views bothankle [...] Akil Osman M.D.05/12/2022 3:32 PM Dictation Location: [place] [address] Transcribed By: [facility] 05/12/22 153 Dictated By: Akil Osman DO 05/12/22 1527 Signed By: 05/12/22 1532 Normal [facility] pH Auto test strip (U)Ordere d By: Mark Avila on 05-12-2022 pH (U) 5.5 [pH] 5.0-9.0 [facility] US venous duplex LE BIon US venous duplex LE BI [facility] [place] [address] Ultrasound Report Signed Patient: Corie Courtney MR#: [id number] : 1950 Acct:[id number] Age/Sex: 71 / F ADM Date: 04/16/22 Loc: Room: [address] [place] [address] Type: DIS INOo Attending Dr: Parvin Batres [...] Pb Yi MD04/19/2022 11:38 AM Dictation Location: [facility]04 Tech: Cristine Cody Transcribed By: SEBAS 04/19/22 1138 Dictated By: Pb Yi MD 04/19/22 113 Signed By: 04/19/22 113 [facility] Urine culture routineOrdered By: Parvin Batres on 04-19-2022 Bacteria identified Cx Nom (U) Escherichia coli [facility] Basic Metabolic Panelon Calcium [Mass/Vol] 9.3 mg/dL Normal 8.2-10.2 [facility] Comment on above: Performed By: #### E SR, RETIC, CBC #### [facility] [address] Chloride [Moles/Vol] 92 mmol/L Low 95-114 [facility] Comment on above: Performed By: #### E SR, RETIC, CBC #### [facility] [address] CO2 [Moles/Vol] 25.8 mmol/L Normal 22.0-30.0 [facility] Comment on above: Performed By: #### E SR, RETIC, CBC #### [facility] [address] Creatinine [Mass/Vol] 0.82 mg/dL Normal 0.44-1.03 [facility] Comment on above: Performed By: #### E SR, RETIC, CBC #### [facility] [address] [place] [address] [place] Creatinine Clr Calc Pharmacy 46.00 [facility] Comment on above: Performed By: #### E SR, RETIC, CBC #### [facility] [address] [place] [address] [place] Estimated GFR ( Ysabel > 60 [facility] Comment on above: Result Comment: GFR estimated reference range: According to KDOQI guidelines, <60 ml/min/1.73m2 is sufficient to diagnose a patient with chronic kidney disease. Performed By: #### E SR, RETIC, CBC #### [facility] [address] [place] [address] [place] Estimated GFR (Non- Am > 60 Normal [facility] Comment on above: Performed By: #### E SR, RETIC, CBC #### [facility] [address] Glucose [Mass/Vol] 92 mg/dL Normal 70-100 [facility] Comment on above: Result Comment: [place] Glucose Reference Range is dependent on time and content of last meal. Glucose of more than 200 mg/dL in a nonstressed, ambulatory subject supports the diagnosis of Diabetes Mellitus. ADA recommended reference range Performed By: #### E SR, RETIC, CBC #### [facility] [address] Potassium [Moles/Vol] 4.2 mmol/L Normal 3.5-5.1 [facility] Comment on above: Performed By: #### E SR, RETIC, CBC #### [facility] [address] Sodium [Moles/Vol] 129 mmol/L Low 136-146 [facility] Comment on above: Performed By: #### E SR, RETIC, CBC #### [facility] [address] Urea nitrogen [Mass/Vol] 15 mg/dL Normal 9-23 [facility] Comment on above: Performed By: #### E SR, RETIC, CBC #### [facility] [address] [id number] [place] Basophils Auto (Bld) [#/Vol] Ordered By: Josué Alvarez on 04-18-2022 Basophils (Bld) [#/Vol] 0.1 10*3/uL 0.0-0.2 [facility] Basophils/100 WBC Auto (Bld) Ordered By: Josué Alvarez on 04-18-2022 Basophils/100 WBC (Bld) 1.0 % . F [facility] Blood hemoglobin measurement (mass/volume)Ordered By: Josué Alvarez on 04-18-2022 Hemoglobin (Bld) [Mass/Vol] 9.2 g/dL 11.8-15.4 [facility] Blood leukocytes automated c ount (number/volume)Ordered By: Josué Alvarez on 04-18-2022 WBC (Bld) [#/Vol] 8.1 10*3/uL 4.5-11.0 [facility] Complete Blood Count Auto Di ffon 04-18-2022 Basophils (Bld) [#/Vol] 0.1 10*3/uL Normal 0.0-0.2 [facility] Comment on above: Result Comment: PERF ORMED BY: [place] [address] PATHOLOGIST MANAGER PEDIATRIC JOSEY BOUCHER M.D. Performed By: #### E SR, RETIC, CBC #### [address] Basophils/100 WBC (Bld) 1.0 % Normal . F [facility] Comment on above: Performed By: #### E SR, RETIC, CBC #### [address] Eosinophils (Bld) [#/Vol] 0.3 10*3/uL Normal 0.0-0.45 [facility] Comment on above: Performed By: #### E SR, RETIC, CBC #### [address] Eosinophils/100 WBC (Bld) 3.3 % Normal . [facility] Comment on above: Performed By: #### E SR, RETIC, CBC #### [facility] [address] [place] [address] Erythrocyte distribution width (RBC) [Ratio] 16.4 % High 11.9-15.3 [facility] Comment on above: Performed By: #### E SR, RETIC, CBC #### [address] Hematocrit (Bld) [Volume fraction] 27.5 % Low 34.0-46.4 [facility] Comment on above: Performed By: #### E SR, RETIC, CBC #### [address] Hemoglobin (Bld) [Mass/Vol] 9.2 g/dL Low 11.8-15.4 [facility] Comment on above: Performed By: #### E SR, RETIC, CBC #### [address] Lymphocytes (Bld) [#/Vol] 1.8 10*3/uL Normal 1.00-4.8 [facility] Comment on above: Performed By: #### E SR, RETIC, CBC #### [address] Lymphocytes/100 WBC (Bld) 22.3 % Normal . [facility] Comment on above: Performed By: #### E SR, RETIC, CBC #### [address] MCH (RBC) [Entitic mass] 25.4 pg Normal 24.7-34.3 [facility] Comment on above: Performed By: #### E SR, RETIC, CBC #### [address] MCV (RBC) [Entitic vol] 75.8 fL Low 80-100 F [facility] Comment on above: Performed By: #### E SR, RETIC, CBC #### [address] Mean Corpuscular HGB Conc 33.5 g/dL Normal 32.0-35.0 [facility] Comment on above: Performed By: #### E SR, RETIC, CBC #### [address] Monocytes (Bld) [#/Vol] 0.7 10*3/uL Normal 0.0-0.8 [facility] Comment on above: Performed By: #### E SR, RETIC, CBC #### [place] [address] [place] Monocytes/100 WBC (Bld) 8.3 % Normal . F [facility] Comment on above: Performed By: #### E SR, RETIC, CBC #### [place] [address] [place] Neutrophils (Bld) [#/Vol] 5.3 10*3/uL Normal 1.8-7.7 [facility] Comment on above: Performed By: #### E SR, RETIC, CBC #### [facility] [address] Neutrophils/100 WBC (Bld) 65.1 % Normal . [facility] Comment on above: Performed By: #### E SR, RETIC, CBC #### [facility] [address] [place] [address] [place] Nucleated RBC/100 WBC (Bld) [Ratio] 0.1 % Normal 0-0.5 [facility] Comment on above: Performed By: #### E SR, RETIC, CBC #### [facility] [address] Platelet mean volume (Bld) [Entitic vol] 6.9 fL Normal 6.3-10.7 [facility] Comment on above: Performed By: #### E SR, RETIC, CBC #### [facility] [address] Platelets (Bld) [#/Vol] 714 10*3/uL High 150-450 [facility] Comment on above: Performed By: #### E SR, RETIC, CBC #### [address] RBC (Bld) [#/Vol] 3.63 10*6/uL Normal 3.60-5.00 [facility] Comment on above: Performed By: #### E SR, RETIC, CBC #### [facility] [address] [place] [address] [place] WBC (Bld) [#/Vol] 8.1 10*3/uL Normal 4.5-11.0 [facility] Comment on above: Performed By: #### E SR, RETIC, CBC #### [place] [address] [place] Creatinine and Glomerular fi ltration rate.predicted panel (S/P/Bld)Ordered By: Josué Alvarez on 04-18-2022 Creatinine [Mass/Vol] 0.82 mg/dL 0.44-1.03 [facility] Eosinophils Auto (Bld) [#/Vo l]Ordered By: Josué Alvarez on 04-18-2022 Eosinophils (Bld) [#/Vol] 0.3 10*3/uL 0.0-0.45 [facility] Eosinophils/100 WBC Auto (Bl d)Ordered By: Josué Alvarez on 04-18-2022 Eosinophils/100 WBC (Bld) 3.3 % . [facility] Erythrocyte distribution wid th Auto (RBC) [Ratio]Ordered By: Josué Alvarez on 04-18-2022 Erythrocyte distribution width (RBC) [Ratio] 16.4 % 11.9-15.3 [facility] Estimated glomerular filtrat ion rate (GFR) non- AmericanOrdered By: Josué Alvarez on 04-18-2022 GFR/1.73 sq M.predicted among non-blacks MDRD (S/P/Bld) [Vol rate/Area] > 60 mL/Min [facility] Hematocrit Auto (Bld) [Volum e fraction]Ordered By: Josué Alvarez on 04-18-2022 Hematocrit (Bld) [Volume fraction] 27.5 % 34.0-46.4 [facility] - Chemistry and C hemistry - challengeOrdered By: Josué Alvarez on 04-18-2022 Magnesium [Mass/Vol] 1.9 mg/dL 1.6-2.6 [facility] - Hematology and Cell countsOrdered By: Josué Alvarez on 04-18-2022 Nucleated RBC/100 WBC (Bld) [Ratio] 0.1 % 0-0.5 [facility] Lymphocytes Auto (Bld) [#/Vo l]Ordered By: Josué Alvarez on 04-18-2022 Lymphocytes (Bld) [#/Vol] 1.8 10*3/uL 1.00-4.8 [facility] Lymphocytes/100 WBC Auto (Bl d)Ordered By: Josué Alvarez on 04-18-2022 Lymphocytes/100 WBC (Bld) 22.3 % . [facility] MCH Auto (RBC) [Entitic mass ]Ordered By: Josué Alvarez on 04-18-2022 MCH (RBC) [Entitic mass] 25.4 pg 24.7-34.3 [facility] MCHC Auto (RBC) [Mass/Vol]Or dered By: Josué Alvarez on 04-18-2022 MCHC (RBC) [Mass/Vol] 33.5 g/dL 32.0-35.[address] [facility] MCV Auto (RBC) [Entitic vol] Ordered By: Josué Alvarez on 04-18-2022 MCV (RBC) [Entitic vol] 75.8 fL 80-100 F [facility] Magnesiumon 04-18-2022 Magnesium [Mass/Vol] 1.9 mg/dL Normal 1.6-2.6 [facility] Comment on above: Result Comment: PERF ORMED BY: [facility] [address] [place] [address] PATHOLOGIST MANAGER PEDIATRIC JOSEY BOUCHER M.D. Performed By: #### E SR, RETIC, CBC #### [facility] [address] Monocytes Auto (Bld) [#/Vol] Ordered By: Josué Alvarez on 04-18-2022 Monocytes (Bld) [#/Vol] 0.7 10*3/uL 0.0-0.8 [facility] Monocytes/100 WBC Auto (Bld) Ordered By: Josué Alvarez on 04-18-2022 Monocytes/100 WBC (Bld) 8.3 % . F [facility] Neutrophils Auto (Bld) [#/Vo l]Ordered By: Josué Alvarez on 04-18-2022 Neutrophils (Bld) [#/Vol] 5.3 10*3/uL 1.8-7.7 [facility] Neutrophils/100 WBC Auto (Bl d)Ordered By: Josué Alvarez on 04-18-2022 Neutrophils/100 WBC (Bld) 65.1 % . [facility] No Panel InformationOrdered By: Josué Alvarez on 04-18-2022 Estimated GFR () > 60 mL/Min [facility] Comment on above: GFR estimated refere nce range: According to KDOQI guidelines, <60 ml/min/1.73m2 is sufficient to diagnose a patient with chronic kidney disease. Pharmacy Creatinine Clearance (Chem 46.00 [facility] Platelet mean volume Auto (B ld) [Entitic vol]Ordered By: Josué Alvarez on 04-18-2022 Platelet mean volume (Bld) [Entitic vol] 6.9 fL 6.3-10.7 [facility] Platelets Auto (Bld) [#/Vol] Ordered By: Josué Alvarez on 04-18-2022 Platelets (Bld) [#/Vol] 714 10*3/uL 150-450 [facility] RBC Auto (Bld) [#/Vol]Ordere d By: Josué Alvarez on 04-18-2022 RBC (Bld) [#/Vol] 3.63 10*6/uL 3.60-5.00 [facility] Serum or plasma calcium ervin urement (mass/volume)Ordered By: Josué Alvarez on 04-18-2022 Calcium [Mass/Vol] 9.3 mg/dL 8.2-10.2 [facility] Serum or plasma chloride zhou surement (moles/volume)Ordered By: Josué Alvarez on 04-18-2022 Chloride [Moles/Vol] 92 mmol/L 95-114 [facility] Serum or plasma glucose ervin urement (mass/volume)Ordered By: Josué Alvarez on 04-18-2022 Glucose [Mass/Vol] 92 mg/dL 70-100 [facility] Comment on above: ADA recommended refe rence range Random Glucose Reference Range is dependent on time and content of last meal. Glucose of more than 200 mg/dL in a nonstressed, ambulatory subject supports the diagnosis of Diabetes Mellitus. Serum or plasma potassium me asurement (moles/volume)Ordered By: Josué Alvarez on 04-18-2022 Potassium [Moles/Vol] 4.2 mmol/L 3.5-5.1 [facility] Serum or plasma sodium measu rement (moles/volume)Ordered By: Josué Alvarez on 04-18-2022 Sodium [Moles/Vol] 129 mmol/L 136-146 [facility] Serum or plasma total carbon dioxide measurement (moles/volume)Ordered By: Josué Alvarez on 04-18-2022 CO2 [Moles/Vol] 25.8 mmol/L 22.0-30.0 [facility] Serum or plasma urea nitroge n measurement (mass/volume)Ordered By: Josué Alvarez on 04-18-2022 Urea nitrogen [Mass/Vol] 15 mg/dL 9- [facility] A1C with Estimated Average [employer] 04-17-2022 Glucose [Mass/Vol] 131 mg/dL Normal [facility] Comment on above: Result Comment: PERF ORMED BY: [place] [address] PATHOLOGIST MANAGER PEDIATRIC JOSEY BOUCHER M.D. Performed By: #### E SR, RETIC, CBC #### [facility] [address] HbA1c (Bld) [Mass fraction] 6.2 % High 4.3-5.6 [facility] Comment on above: Result Comment: Incr eased risk for diabetes: 5.7 - 6.4 diabetes: >6.4 glycemic control for adults with diabetes: <7.0 Performed By: #### E SR, RETIC, CBC #### [facility] [address] Automated epithelial cells c ount in urine sediment (number/area)Ordered By: Parvin Batres on 04-17-2022 Epithelial cells Auto (Urine sed) [#/Area] 10-19 [HPF] 0-2 [facility] Automated erythrocytes count in urine sediment (number/area)Ordered By: Parvin Batres on 04-17-2022 RBC Auto (Urine sed) [#/Area] 5-9 [HPF] 0-4 [facility] Automated leukocytes count i n urine sediment (number/area)Ordered By: Parvin Batres on 04-17-2022 WBC Auto (Urine sed) [#/Area] Innumerable [HPF] 0-4 [facility] Basic Metabolic Panelon Calcium [Mass/Vol] 9.4 mg/dL Normal 8.2-10.2 [facility] Comment on above: Performed By: #### E SR, RETIC, CBC #### [facility] [address] Chloride [Moles/Vol] 97 mmol/L Normal 95-114 [facility] Comment on above: Performed By: #### E SR, RETIC, CBC #### [facility] [address] CO2 [Moles/Vol] 26.3 mmol/L Normal 22.0-30.0 [facility] Comment on above: Performed By: #### E SR, RETIC, CBC #### [address] Creatinine [Mass/Vol] 0.74 mg/dL Normal 0.44-1.03 [facility] Comment on above: Performed By: #### E SR, RETIC, CBC #### [place] [address] [place] Creatinine Clr Calc Pharmacy 47.67 [facility] Comment on above: Performed By: #### E SR, RETIC, CBC #### [address] Estimated GFR ( Ysabel > 60 [facility] Comment on above: Result Comment: GFR estimated reference range: According to KDOQI guidelines, <60 ml/min/1.73m2 is sufficient to diagnose a patient with chronic kidney disease. Performed By: #### E SR, RETIC, CBC #### [address] Estimated GFR (Non- Am > 60 [facility] Comment on above: Performed By: #### E SR, RETIC, CBC #### [address] Glucose [Mass/Vol] 89 mg/dL Normal 70-100 [facility] Comment on above: Result Comment: Morse om Glucose Reference Range is dependent on time and content of last meal. Glucose of more than 200 mg/dL in a nonstressed, ambulatory subject supports the diagnosis of Diabetes Mellitus. ADA recommended reference range Performed By: #### E SR, RETIC, CBC #### [facility] [address] [place] [address] [place] Potassium [Moles/Vol] 4.3 mmol/L Normal 3.5-5.1 [facility] Comment on above: Performed By: #### E SR, RETIC, CBC #### [facility] [address] [place] [address] [place] Sodium [Moles/Vol] 133 mmol/L Low 136-146 [facility] Comment on above: Performed By: #### E SR, RETIC, CBC #### [facility] [address] [place] [address] [place] Urea nitrogen [Mass/Vol] 10 mg/dL Normal 9-23 [facility] Comment on above: Performed By: #### E SR, RETIC, CBC #### [facility] [address] Bilirubin Test strip Ql (U)O rdered By: Parvin Batres on 04-17-2022 Bilirubin Ql (U) Negative Negative [facility] Cholesterol [Mass/volume] in Serum or PlasmaOrdered By: Parvin Batres on 04-17-2022 Cholesterol [Mass/Vol] 134 mg/dL 140-200 [facility] Comment on above: Chol less than 200 m g/dl low risk Chol 201-239 mg/dl borderline risk Chol 240 mg/dl and greater high risk Cholesterol in LDL Calc [Mas s/Vol]Ordered By: Parvin Batres on 04-17-2022 Cholesterol in LDL [Mass/Vol] 76 mg/dL 0-100 [facility] Comment on above: LDL ATP III CLASSIFI CATION LDL less than 100 mg/dL Optimal LDL 100-129 mg/dL Near or above optimal LDL 130-159 mg/dL Borderline high LDL 160-189 mg/dL High LDL greater than 189 mg/dL Very high Cholesterol in VLDL Calc [Ma ss/Vol]Ordered By: Parvin Batres on 04-17-2022 Cholesterol in VLDL [Mass/Vol] 13 mg/dL [facility] Color Auto (U)Ordered By: King Batres on 04-17-2022 Color (U) Yellow Yellow [facility] Complete Blood Count Auto Di ffon 04-17-2022 Basophils (Bld) [#/Vol] 0.1 10*3/uL Normal 0.0-0.2 [facility] Comment on above: Result Comment: PERF ORMED BY: [place] [address] PATHOLOGIST MANAGER PEDIATRIC JOSEY BOUCHER M.D. Performed By: #### E SR, RETIC, CBC #### [facility] [address] Basophils/100 WBC (Bld) 1.0 % Normal . F [facility] Comment on above: Performed By: #### E SR, RETIC, CBC #### [facility] [address] Eosinophils (Bld) [#/Vol] 0.4 10*3/uL Normal 0.0-0.45 [facility] Comment on above: Performed By: #### E SR, RETIC, CBC #### [facility] [address] Eosinophils/100 WBC (Bld) 4.5 % Normal . [facility] Comment on above: Performed By: #### E SR, RETIC, CBC #### [facility] [address] Erythrocyte distribution width (RBC) [Ratio] 17.3 % High 11.9-15.3 [facility] Comment on above: Performed By: #### E SR, RETIC, CBC #### [facility] [address] [place] [address] [place] Hematocrit (Bld) [Volume fraction] 31.0 % Low 34.0-46.4 [facility] Comment on above: Performed By: #### E SR, RETIC, CBC #### [facility] [address] Hemoglobin (Bld) [Mass/Vol] 10.2 g/dL Low 11.8-15.4 [facility] Comment on above: Performed By: #### E SR, RETIC, CBC #### [facility] [address] Lymphocytes (Bld) [#/Vol] 1.9 10*3/uL Normal 1.00-4.8 [facility] Comment on above: Performed By: #### E SR, RETIC, CBC #### [facility] [address] Lymphocytes/100 WBC (Bld) 21.5 % Normal . [facility] Comment on above: Performed By: #### E SR, RETIC, CBC #### [address] MCH (RBC) [Entitic mass] 25.2 pg Normal 24.7-34.3 [facility] Comment on above: Performed By: #### E SR, RETIC, CBC #### [address] MCV (RBC) [Entitic vol] 76.5 fL Low 80-100 F [facility] Comment on above: Performed By: #### E SR, RETIC, CBC #### [address] Mean Corpuscular HGB Conc 32.9 g/dL Normal 32.0-35.0 [facility] Comment on above: Performed By: #### E SR, RETIC, CBC #### [address] Monocytes (Bld) [#/Vol] 0.6 10*3/uL Normal 0.0-0.8 [facility] Comment on above: Performed By: #### E SR, RETIC, CBC #### [place] [address] [place] Monocytes/100 WBC (Bld) 7.1 % Normal . F [facility] Comment on above: Performed By: #### E SR, RETIC, CBC #### [address] Neutrophils (Bld) [#/Vol] 5.7 10*3/uL Normal 1.8-7.7 [facility] Comment on above: Performed By: #### E SR, RETIC, CBC #### [address] Neutrophils/100 WBC (Bld) 65.9 % Normal . [facility] Comment on above: Performed By: #### E SR, RETIC, CBC #### [address] Nucleated RBC/100 WBC (Bld) [Ratio] 0.0 % Normal 0-0.5 [facility] Comment on above: Performed By: #### E SR, RETIC, CBC #### [address] Platelet mean volume (Bld) [Entitic vol] 6.8 fL Normal 6.3-10.7 [facility] Comment on above: Performed By: #### E SR, RETIC, CBC #### [address] Platelets (Bld) [#/Vol] 849 10*3/uL High 150-450 [facility] Comment on above: Performed By: #### E SR, RETIC, CBC #### [address] RBC (Bld) [#/Vol] 4.05 10*6/uL Normal 3.60-5.00 [facility] Comment on above: Performed By: #### E SR, RETIC, CBC #### [address] WBC (Bld) [#/Vol] 8.7 10*3/uL Normal 4.5-11.0 [facility] Comment on above: Performed By: #### E SR, RETIC, CBC #### [address] Dipstick and Microscopicon 0 04-17-2022 Appearance (U) Cloudy Critically abnormal Clear [facility] Comment on above: Order Comment: Name Collection Type:: Clean-Voided Midstream Performed By: #### A DDONUAMARIAM, CUU #### [address] Bacteria,Urine 3+ High None Seen [facility] Comment on above: Order Comment: Name Collection Type:: Clean-Voided Midstream Result Comment: PERF ORMED BY: [place] [address] PATHOLOGIST MANAGER PEDIATRIC JOSEY BOUCHER M.D. Performed By: #### A DDONUAPLUS, CUU #### [place] [address] [place] Bilirubin,Urine Negative Normal Negative [facility] Comment on above: Order Comment: Name Collection Type:: Clean-Voided Midstream Performed By: #### A DDONUAPLUS, CUU #### [address] Color (U) Yellow Normal Yellow [facility] Comment on above: Order Comment: Name Collection Type:: Clean-Voided Midstream Performed By: #### A DDONUAPLUS, CUU #### [address] Glucose Ql (U) Normal Normal Normal [facility] Comment on above: Order Comment: Name Collection Type:: Clean-Voided Midstream Performed By: #### A DDONUAPLUS, CUU #### [address] Ketones Ql (U) Negative Normal Negative [facility] Comment on above: Order Comment: Name Collection Type:: Clean-Voided Midstream Performed By: #### A DDONUAPLUS, CUU #### [place] [address] [place] Leukocyte esterase Test strip Ql (U) 4+ High Negative [facility] Comment on above: Order Comment: Name Collection Type:: Clean-Voided Midstream Performed By: #### A DDONUAPLUS, CUU #### [place] [address] [place] Nitrite,Urine Negative Normal Negative [facility] Comment on above: Order Comment: Name Collection Type:: Clean-Voided Midstream Performed By: #### A DDONUAPLUS, CUU #### [address] Occult Blood,Urine Trace High Negative [facility] Comment on above: Order Comment: Name Collection Type:: Clean-Voided Midstream Result Comment: PERF ORMED BY: [place] [address] PATHOLOGIST MANAGER PEDIATRIC JOSEY BOUCHER M.D. Performed By: #### A DDONUAPLUS, CUU #### [address] pH (U) 7.0 [pH] Normal 5.0-9.0 [facility] Comment on above: Order Comment: Name Collection Type:: Clean-Voided Midstream Performed By: #### A DDONUAPLUS, CUU #### [address] Protein,Urine Negative Normal Negative [facility] Comment on above: Order Comment: Name Collection Type:: Clean-Voided Midstream Performed By: #### A DDONUAPLUS, CUU #### [address] RBC,Urine 5-9 High 0-4 [facility] Comment on above: Order Comment: Name Collection Type:: Clean-Voided Midstream Performed By: #### A DDONUAPLUS, CUU #### [place] [address] [place] Specificy [place],Urine 1.013 Normal 1.001-1.030 [facility] Comment on above: Order Comment: Name Collection Type:: Clean-Voided Midstream Performed By: #### A DDONUAPLUS, CUU #### [place] [address] [place] Squamous Epithelial Cell,Urine 10-19 High 0-2 [facility] Comment on above: Order Comment: Name Collection Type:: Clean-Voided Midstream Performed By: #### A DDONUAPLUS, CUU #### [address] Urobilinogen,Urine Normal Normal Normal [facility] Comment on above: Order Comment: Name Collection Type:: Clean-Voided Midstream Performed By: #### A DDONUAPLUS, CUU #### [facility] [address] [place] [address] WBC,Urine Innumerable High 0-4 [facility] Comment on above: Order Comment: Name Collection Type:: Clean-Voided Midstream Performed By: #### A DDONUAPLUS, CUU #### [facility] [address] ECH echo transthoracicon ECH echo transthoracic [facility] Main [place] [address] [place] [address] Echocardiogram Signed Patient: Corie Courtney MR#: [id number] : 1950 Acct:[id number] Age/Sex: 71 / F ADM Date: 04/16/22 Loc: Room: [address] [place] [address] Type: DIS INOo Attending Dr: Parvin Batres [...] By: Jaquelin Connell MD 04/17/22 1215 Normal [facility] Glucose mean value [Mass/vol ume] in Blood Estimated from glycated hemoglobinOrdered By: Josué Alvarez on 04-17-2022 Average glucose Estimated from glycated hemoglobin (Bld) [Mass/Vol] 131 mg/dL [facility] Hemoglobin A1c percentageOrd ered By: Josué Alvarez on 04-17-2022 HbA1c (Bld) [Mass fraction] 6.2 % 4.3-5.6 [facility] Comment on above: Increased risk for d iabetes: 5.7 - 6.4 diabetes: >6.4 glycemic control for adults with diabetes: <7.0 Ket[place] Auto test strip (U) [Mass/Vol]Ordered By: Parvin Batres on 04-17-2022 Ketones (U) [Mass/Vol] Negative Negative [facility] Lipid Panelon 04-17-2022 Cholesterol [Mass/Vol] 134 mg/dL Low 140-200 [facility] Comment on above: Result Comment: Chol less than 200 mg/dl low risk Chol 201-239 mg/dl borderline risk Chol 240 mg/dl and greater high risk Performed By: #### H APT, CRP, B12, LUIS ALFREDO, FE and TIBC, CREAT, ADDONUAPLUS, LDH #### [facility] [address] [place] [address] #### ANCA PROF #### [facility] , Cholesterol in HDL [Mass/Vol] 44 mg/dL Normal 35-85 [facility] Comment on above: Result Comment: HDL CHOL ATP-III CLASSIFICATION Cardiovascular Risk HDL > or equal to 60 mg/dL LOW HDL < 40 mg/dL HIGH Performed By: #### H APT, CRP, B12, LUIS ALFREDO, FE and TIBC, CREAT, ADDONUAPLUS, LDH #### [facility] [address] [place] [address] #### ANCA PROF #### [facility] , Cholesterol.total/Lisa sterol in HDL [Mass ratio] 3.0 {ratio} Normal <5.0 [facility] Comment on above: Result Comment: PERF ORMED BY: [place] [address] PATHOLOGIST MANAGER PEDIATRIC JOSEY BOUCHER M.D. Performed By: #### H APT, CRP, B12, LUIS ALFREDO, FE and TIBC, CREAT, ADDONUAPLUS, LDH #### [place] [address] [place] #### ANCA PROF #### [facility] , LDL Cholesterol,Calculated 76 mg/dL Normal 0-100 [facility] Comment on above: Result Comment: LDL ATP III CLASSIFICATION LDL less than 100 mg/dL Optimal LDL 100-129 mg/dL Near or above optimal LDL 130-159 mg/dL Borderline high LDL 160-189 mg/dL High LDL greater than 189 mg/dL Very high Performed By: #### H APT, CRP, B12, LUIS ALFREDO, FE and TIBC, CREAT, ADDONUAPLUS, LDH #### [facility] [address] [place] [address] [place] #### ANCA PROF #### [facility] , Triglyceride w/Reflex 68 mg/dL Normal 35-149 [facility] Comment on above: Result Comment: TRIG ATP III CLASSIFICATION TRIG less than 150 mg/dL Normal TRIG 150-199 mg/dL Borderline high TRIG 200-500 mg/dL High TRIG greater than 500 mg/dL Very high Standard traceable to the Center for Disease Conrtrol and Prevention (CDC) test method. Performed By: #### H APT, CRP, B12, LUIS ALFREDO, FE and TIBC, CREAT, ADDONUAPLUS, LDH #### [facility] [address] [place] [address] #### ANCA PROF #### [facility] , VLDL CHOLESTEROL 13 mg/dL Normal [facility] Comment on above: Performed By: #### H APT, CRP, B12, LUIS ALFREDO, FE and TIBC, CREAT, ADDONUAPLUS, LDH #### [facility] [address] [place] [address] [place] #### ANCA PROF #### [facility] , Cholesterol [Mass/Vol] 136 mg/dL Low 140-200 [facility] Comment on above: Result Comment: Chol less than 200 mg/dl low risk Chol 201-239 mg/dl borderline risk Chol 240 mg/dl and greater high risk Performed By: #### E SR, RETIC, CBC #### [address] Cholesterol in HDL [Mass/Vol] 45 mg/dL Normal 35-85 [facility] Comment on above: Result Comment: HDL CHOL ATP-III CLASSIFICATION Cardiovascular Risk HDL > or equal to 60 mg/dL LOW HDL < 40 mg/dL HIGH Performed By: #### E SR, RETIC, CBC #### [facility] [address] Cholesterol.total/Lisa sterol in HDL [Mass ratio] 3.0 {ratio} Normal <5.0 [facility] Comment on above: Result Comment: PERF ORMED BY: [place] [address] PATHOLOGIST MANAGER PEDIATRIC JOSEY BOUCHER M.D. Performed By: #### E SR, RETIC, CBC #### [facility] [address] LDL Cholesterol,Calculated 76 mg/dL Normal 0-100 [facility] Comment on above: Result Comment: LDL ATP III CLASSIFICATION LDL less than 100 mg/dL Optimal LDL 100-129 mg/dL Near or above optimal LDL 130-159 mg/dL Borderline high LDL 160-189 mg/dL High LDL greater than 189 mg/dL Very high Performed By: #### E SR, RETIC, CBC #### [facility] [address] Triglyceride w/Reflex 76 mg/dL Normal 35-149 [facility] Comment on above: Result Comment: TRIG ATP III CLASSIFICATION TRIG less than 150 mg/dL Normal TRIG 150-199 mg/dL Borderline high TRIG 200-500 mg/dL High TRIG greater than 500 mg/dL Very high Standard traceable to the Center for Disease Conrtrol and Prevention (CDC) test method. Performed By: #### E SR, RETIC, CBC #### [facility] [address] VLDL CHOLESTEROL 15 mg/dL Normal [facility] Comment on above: Performed By: #### E SR, RETIC, CBC #### [facility] [address] Magnesiumon 04-17-2022 Magnesium [Mass/Vol] 1.7 mg/dL Normal 1.6-2.6 [facility] Comment on above: Performed By: #### E SR, RETIC, CBC #### [facility] [address] Nitrite Test strip Ql (U)Ord ered By: Parvin Batres on 04-17-2022 Nitrite Ql (U) Negative Negative [facility] Protein Auto test strip (U) [Mass/Vol]Ordered By: Parvin Batres on 04-17-2022 Protein (U) [Mass/Vol] Negative Negative [facility] Serum or plasma high density lipoprotein (HDL) cholesterol measurementOrdered By: Parvin Batres on 04-17-2022 Cholesterol in HDL [Mass/Vol] 44 mg/dL 35-85 [facility] Comment on above: HDL CHOL ATP-III CLA SSIFICATION Cardiovascular Risk HDL > or equal to 60 mg/dL LOW HDL < 40 mg/dL HIGH Serum or plasma total choles terol/high density lipoprotein (HDL) cholesterol mass ratOrdered By: Parvin Batres on 04-17-2022 Cholesterol.total/Lisa sterol in HDL [Mass ratio] 3.0 {ratio} <5.0 [facility] Specific gravity Auto test s trip (U) [Rel density]Ordered By: Parvin Batres on 04-17-2022 Specific gravity (U) [Rel density] 1.013 1.001-1.030 [facility] Triglyceride [Mass/volume] i n Serum or PlasmaOrdered By: Parvin Batres on 04-17-2022 Triglyceride [Mass/Vol] 68 mg/dL 35-149 F [facility] Comment on above: TRIG ATP III CLASSIF ICATION TRIG less than 150 mg/dL Normal TRIG 150-199 mg/dL Borderline high TRIG 200-500 mg/dL High TRIG greater than 500 mg/dL Very high Standard traceable to the Center for Disease Conrtrol and Prevention (CDC) test method. Troponin I High Sensitivityo n 04-17-2022 Troponin I High Sensitivity 435 pg/mL Off scale high 0-15 [facility] Comment on above: Result Comment: Resu lts called at 0847 on 04/17/22 PERFORMED BY: [address] [place] [address] PATHOLOGIST MANAGER PEDIATRIC JOSEY BOUCHER M.D. Performed By: #### E SR, RETIC, CBC #### [facility] [address] Troponin I High Sensitivity 436 pg/mL Off scale high 0-15 [facility] Comment on above: Result Comment: Resu lts called at 0149 on 04/17/22 PERFORMED BY: [place] [address] PATHOLOGIST MANAGER PEDIATRIC JOSEY BOUCHER M.D. Performed By: #### H APT, CRP, B12, LUIS ALFREDO, FE and TIBC, CREAT, ADDONUAPLUS, LDH #### [facility] [address] [place] [address] [place] #### ANCA PROF #### [facility] , Troponin I.cardiac [Mass/vol ume] in Serum or Plasma by High sensitivity methodOrdered By: Josué Alvarez on 04-17-2022 Troponin I.cardiac High sensitivity method [Mass/Vol] 435 pg/mL 0-15 [facility] Comment on above: Results called at 0847 on 04/17/22 Urine Cultureon 04-17-2022 Bacteria identified Cx Nom (U) ORGANISM: Escherichia coli (O:ESCCOL) [place] Count 75,000 Aerobic ADWOA Charge (NUC86) ---- [...] RESISTANT TO ALL B-LACTAM DRUGS. PERFORMED BY: [place] [address] PATHOLOGIST MANAGER PEDIATRIC JOSEY BOUCHER M.D. Normal [facility] Comment on above: Performed By: #### A SHARAD CHEN #### [address] Urine bacteria detection by automated methodOrdered By: Parvin Batres on 04-17-2022 Bacteria Auto Ql (U) 3+ None Seen [facility] Urine clarity by refractomet ry automatedOrdered By: Parvin Batres on 04-17-2022 Clarity Refractometry automated (U) Cloudy Clear [facility] Urine glucose measurement by automated test strip (mass/volume)Ordered By: Parvin Batres on 04-17-2022 Glucose Auto test strip (U) [Mass/Vol] Normal mg/dL Normal [facility] Urine hemoglobin detection b y automated test stripOrdered By: Parvin Batres on 04-17-2022 Hemoglobin Auto test strip Ql (U) Trace Negative [facility] Urine leukocyte esterase det ection by automated test stripOrdered By: Parvin Batres on 04-17-2022 Leukocyte esterase Auto test strip Ql (U) 4+ Negative [facility] Urobilinogen Auto test strip (U) [Mass/Vol]Ordered By: Parvin Batres on 04-17-2022 Urobilinogen (U) [Mass/Vol] Normal mg/dL Normal [facility] pH Auto test strip (U)Ordere d By: Parvin Batres on 04-17-2022 pH (U) 7.0 [pH] 5.0-9.0 [facility] Activated partial thrombopla stin time (aPTT) in platelet poor plasma by coagulation aOrdered By: Layo Sheridan on 04-16-2022 aPTT Coag (PPP) [Time] 30.5 s 25.1-36.5 [facility] Albumin [Mass/volume] in Ser um or PlasmaOrdered By: Layo Sheridan on 04-16-2022 Albumin [Mass/Vol] 2.6 g/dL 3.2-5.5 [facility] B-Type Natriuretic Peptideon 04-16-2022 Natriuretic peptide B (Bld) [Mass/Vol] 118.0 pg/mL High 5-100 [facility] Comment on above: Result Comment: PERF ORMED BY: [facility] [address] [place] [address] PATHOLOGIST MANAGER PEDIATRIC JOSEY BOUCHER M.D. Performed By: #### E SR, RETIC, CBC #### [facility] [address] COVID CepheidOrdered By: Ana Ramirez on 04-16-2022 SARS-CoV-2 (COVID-19) Ab IA Ql Negative Negative [facility] Comment on above: This is a duplicate Cepheid Xpert Xpress CoV-2/Flu/RSV Plus RNA by RT-PCR result to be used for statistical tracking purpose only. SARS-CoV-2 (COVID-19) RNA KIARRA+probe Ql (Unsp spec) [facility] COVID-19 / Flu A/B / RSV [...] or Cepheid Disclaimer revoked sooner. PERFORMED BY: [place] [address] PATHOLOGIST MANAGER PEDIATRIC JOSEY BOUCHER M.D. Normal [facility] Comment on above: Performed By: #### E SR, RETIC, CBC #### [facility] [address] [place], [place] [id number] [facility] Cepheid COVID PCR Negativeon 04-16-2022 SARS-CoV-2 (COVID-19) RNA KIARRA+probe Ql (Unsp spec) Negative Normal Negative [facility] Comment on above: Result Comment: This is a duplicate Cepheid Xpert Xpress CoV-2/Flu/RSV Plus RNA by RT-PCR result to be used for statistical tracking purpose only. PERFORMED BY: [place] [address] PATHOLOGIST MANAGER PEDIATRIC JOSEY BOUCHER M.D. Performed By: #### E SR, RETIC, CBC #### [address] Complete Blood Count Auto Di ffon 04-16-2022 Basophils (Bld) [#/Vol] 0.1 10*3/uL Normal 0.0-0.2 [facility] Comment on above: Result Comment: PERF ORMED BY: [place] [address] PATHOLOGIST MANAGER PEDIATRIC JOSEY BOUCHER M.D. Performed By: #### E SR, RETIC, CBC #### [address] Basophils/100 WBC (Bld) 1.4 % Normal . F [facility] Comment on above: Performed By: #### E SR, RETIC, CBC #### [address] Eosinophils (Bld) [#/Vol] 0.3 10*3/uL Normal 0.0-0.45 [facility] Comment on above: Performed By: #### E SR, RETIC, CBC #### [address] Eosinophils/100 WBC (Bld) 3.7 % Normal . [facility] Comment on above: Performed By: #### E SR, RETIC, CBC #### [address] Erythrocyte distribution width (RBC) [Ratio] 17.1 % High 11.9-15.3 [facility] Comment on above: Performed By: #### E SR, RETIC, CBC #### [address] Hematocrit (Bld) [Volume fraction] 28.4 % Low 34.0-46.4 [facility] Comment on above: Performed By: #### E SR, RETIC, CBC #### [address] Hemoglobin (Bld) [Mass/Vol] 9.2 g/dL Low 11.8-15.4 [facility] Comment on above: Performed By: #### E SR, RETIC, CBC #### [address] [place] [address] [place] Lymphocytes (Bld) [#/Vol] 2.8 10*3/uL Normal 1.00-4.8 [facility] Comment on above: Performed By: #### E SR, RETIC, CBC #### [place] [address] [place] Lymphocytes/100 WBC (Bld) 30.4 % Normal . [facility] Comment on above: Performed By: #### E SR, RETIC, CBC #### [address] MCH (RBC) [Entitic mass] 24.9 pg Normal 24.7-34.3 [facility] Comment on above: Performed By: #### E SR, RETIC, CBC #### [address] MCV (RBC) [Entitic vol] 77.0 fL Low 80-100 F [facility] Comment on above: Performed By: #### E SR, RETIC, CBC #### [address] Mean Corpuscular HGB Conc 32.4 g/dL Normal 32.0-35.0 [facility] Comment on above: Performed By: #### E SR, RETIC, CBC #### [place] [address] [place] Monocytes (Bld) [#/Vol] 0.8 10*3/uL Normal 0.0-0.8 [facility] Comment on above: Performed By: #### E SR, RETIC, CBC #### [place] [address] [place] Monocytes/100 WBC (Bld) 8.6 % Normal . F [facility] Comment on above: Performed By: #### E SR, RETIC, CBC #### [place] [address] [place] Neutrophils (Bld) [#/Vol] 5.1 10*3/uL Normal 1.8-7.7 [facility] Comment on above: Performed By: #### E SR, RETIC, CBC #### [facility] [address] Neutrophils/100 WBC (Bld) 55.9 % Normal . [facility] Comment on above: Performed By: #### E SR, RETIC, CBC #### [facility] [address] Nucleated RBC/100 WBC (Bld) [Ratio] 0.0 % Normal 0-0.5 [facility] Comment on above: Performed By: #### E SR, RETIC, CBC #### [facility] [address] Platelet mean volume (Bld) [Entitic vol] 6.9 fL Normal 6.3-10.7 [facility] [facility] Comment on above: Performed By: #### E SR, RETIC, CBC #### [facility] [address] Platelets (Bld) [#/Vol] 696 10*3/uL High 150-450 [facility] Comment on above: Performed By: #### E SR, RETIC, CBC #### [address] RBC (Bld) [#/Vol] 3.69 10*6/uL Normal 3.60-5.00 [facility] Comment on above: Performed By: #### E SR, RETIC, CBC #### [place] [address] [place] WBC (Bld) [#/Vol] 9.1 10*3/uL Normal 4.5-11.0 [facility] Comment on above: Performed By: #### E SR, RETIC, CBC #### [address] Comprehensive Metabolic Pane dinora 04-16-2022 Albumin [Mass/Vol] 2.6 g/dL Low 3.2-5.5 [facility] Comment on above: Performed By: #### E SR, RETIC, CBC #### [address] Albumin/Globulin [Mass ratio] 0.7 {ratio} Normal [facility] Comment on above: Performed By: #### E SR, RETIC, CBC #### [facility] [address] [place] [id number] [facility] ALP [Catalytic activity/Vol] 85 U/L Normal 32-92 [facility] Comment on above: Performed By: #### E SR, RETIC, CBC #### [facility] [address] [place] [id number] [facility] ALT [Catalytic activity/Vol] 17 U/L Normal 10-60 [facility] Comment on above: Performed By: #### E SR, RETIC, CBC #### [facility] [address] [place] [id number] [facility] AST [Catalytic activity/Vol] 17 U/L Normal 10-42 [facility] Comment on above: Performed By: #### E SR, RETIC, CBC #### [facility] [address] Bilirubin [Mass/Vol] 0.4 mg/dL Normal 0.3-1.2 [facility] Comment on above: Performed By: #### E SR, RETIC, CBC #### [facility] [address] Calcium [Mass/Vol] 9.5 mg/dL Normal 8.2-10.2 [facility] Comment on above: Performed By: #### E SR, RETIC, CBC #### [facility] [address] [place] [address] [place] Chloride [Moles/Vol] 95 mmol/L Normal 95-114 [facility] Comment on above: Performed By: #### E SR, RETIC, CBC #### [facility] [address] [place] [id number] [place] CO2 [Moles/Vol] 24.3 mmol/L Normal 22.0-30.0 [facility] Comment on above: Performed By: #### E SR, RETIC, CBC #### [facility] [address] [place] [id number] [facility] Creatinine [Mass/Vol] 0.93 mg/dL Normal 0.44-1.03 [facility] Comment on above: Performed By: #### E SR, RETIC, CBC #### [facility] [address] Creatinine Clr Calc Pharmacy 41.01 [facility] Comment on above: Performed By: #### E SR, RETIC, CBC #### [facility] [address] Estimated GFR ( Ysabel > 60 [facility] Comment on above: Result Comment: GFR estimated reference range: According to KDOQI guidelines, <60 ml/min/1.73m2 is sufficient to diagnose a patient with chronic kidney disease. Performed By: #### E SR, RETIC, CBC #### [facility] [address] Estimated GFR (Non- Am 60 [facility] Comment on above: Performed By: #### E SR, RETIC, CBC #### [address] Globulin (S) [Mass/Vol] 3.9 g/dL Normal [facility] Comment on above: Performed By: #### E SR, RETIC, CBC #### [address] Glucose [Mass/Vol] 92 mg/dL Normal 70-100 [facility] Comment on above: Result Comment: Morse Glucose Reference Range is dependent on time and content of last meal. Glucose of more than 200 mg/dL in a nonstressed, ambulatory subject supports the diagnosis of Diabetes Mellitus. ADA recommended reference range Performed By: #### E SR, RETIC, CBC #### [facility] [address] Potassium [Moles/Vol] 4.3 mmol/L Normal 3.5-5.1 [facility] Comment on above: Performed By: #### E SR, RETIC, CBC #### [facility] [address] Protein [Mass/Vol] 6.5 g/dL Normal 6.1-7.9 [facility] Comment on above: Performed By: #### E SR, RETIC, CBC #### [facility] [address] [place] [address] [place] Sodium [Moles/Vol] 131 mmol/L Low 136-146 [facility] Comment on above: Performed By: #### E SR, RETIC, CBC #### [facility] [address] [place] [id number] [place] Urea nitrogen [Mass/Vol] 13 mg/dL Normal 9-23 [facility] Comment on above: Performed By: #### E SR, RETIC, CBC #### [facility] [address] Direct bilirubin measurement Ordered By: Layo Sheridan on 04-16-2022 Bilirubin.direct [Mass/Vol] mg/dL 0.0-0.4 [facility] ECG 12 lead ECGon 04-16-2022 ECG 12 lead ECG [facility] [place] [address] [place] [address] Electrocardiograph Report Signed Patient: Corie Courtney MR#: [id number] : 1950 Acct:[id number] Age/Sex: 71 / F ADM Date: 04/16/22 Loc: Room: [address] [place] [address] Type: DIS INOo Attending Dr: Parvin Batres [...] By Marshall Mayberry MD 04/17/22 0132 Normal [facility] Globulin Calc (S) [Mass/Vol] Ordered By: Layo Sheridan on 04-16-2022 Globulin (S) [Mass/Vol] 3.9 g/dL F [facility] Hepatic Panelon 04-16-2022 Bilirubin,Indirect Not performed Normal [facility] Comment on above: Result Comment: PERF ORMED BY: [place] [address] PATHOLOGIST MANAGER PEDIATRIC JOSEY BOUCHER M.D. Performed By: #### E SR, RETIC, CBC #### [facility] [address] Bilirubin.indirect [Mass/Vol] mg/dL Normal 0.0-0.4 [facility] Comment on above: Performed By: #### E SR, RETIC, CBC #### [facility] [address] [place] [address] Laboratory - Chemistry and C hemistry - challengeOrdered By: Layo Sheridan on 04-16-2022 Natriuretic peptide B (Bld) [Mass/Vol] 118.0 pg/mL 5-100 [facility] Laboratory - CoagulationOrde red By: Layo Sheridan on 04-16-2022 PT Coag (PPP) [Time] 14.0 s 9.0-12.9 [facility] Partial Thromboplastin Timeo n 04-16-2022 aPTT Coag (Bld) [Time] 30.5 s Normal 25.1-36.5 [facility] Comment on above: Result Comment: PERF ORMED BY: [place] [address] PATHOLOGIST MANAGER PEDIATRIC JOSEY BOUCHER M.D. Performed By: #### E SR, RETIC, CBC #### [facility] [address] [place] [address] Platelet poor plasma interna tional normalized ratio (INR) by coagulation assay (relatOrdered By: Layo Sheridan on 04-16-2022 INR Coag (PPP) [Relative time] 1.2 {INR} [facility] Comment on above: INR Therapeutic Rang [...] on 04-16-2022 Protein [Mass/Vol] 6.5 g/dL 6.1-7.9 [facility] Prothrombin Time INRon 04-16 INR Coag (PPP) [Relative time] 1.2 {INR} Normal [facility] Comment on above: Result Comment: INR [...] By: #### E SR, RETIC, CBC #### [facility] [address] PT Coag (PPP) [Time] 14.0 s High 9.0-12.9 [facility] Comment on above: Performed By: #### E SR, RETIC, CBC #### [facility] [address] Serum or plasma alanine rajan otransferase measurement without P-5'-P (enzymatic activiOrdered By: Layo Sheridan on 04-16-2022 ALT No additional P-5'-P [Catalytic activity/Vol] 17 U/L 10-60 [facility] Serum or plasma albumin/glob ulin mass ratioOrdered By: Layo Sheridan on 04-16-2022 Albumin/Globulin [Mass ratio] 0.7 {ratio} [facility] Serum or plasma alkaline kim sphatase measurement (enzymatic activity/volume)Ordered By: Layo Sheridan on 04-16-2022 ALP [Catalytic activity/Vol] 85 U/L 32-92 [facility] Serum or plasma aspartate am inotransferase measurement (enzymatic activity/volume)Ordered By: Layo Sheridan on 04-16-2022 AST [Catalytic activity/Vol] 17 U/L 10-42 [facility] Serum or plasma non-glucuron idated bilirubin measurement (mass/volume)Ordered By: Layo Sheridan on 04-16-2022 Bilirubin.indirect [Mass/Vol] TNP [facility] Comment on above: Test not performed Serum or plasma total biliru bin measurement (mass/volume)Ordered By: Layo Sheridan on 04-16-2022 Bilirubin [Mass/Vol] 0.4 mg/dL 0.3-1.2 [facility] Troponin I High Sensitivityo n 04-16-2022 Troponin I High Sensitivity 314 pg/mL Off scale high 0-15 [facility] Comment on above: Result Comment: Resu lts called at 1947 on 04/16/22 PERFORMED BY: [place] [address] PATHOLOGIST MANAGER PEDIATRIC JOSEY BOUCHER M.D. Performed By: #### E SR, RETIC, CBC #### [address] XR chest 2V*on 04-16-2022 XR chest 2V* [facility] [place] [address] [place] [address] XRay Report Signed Patient: Corie Courtney MR#: [id number] : 1950 Acct:[id number] Age/Sex: 71 / F ADM Date: 04/16/22 Loc: ER Room: Type: [facility] ER Attending Dr: Copies to: Layo [...] Akil Osman M.D.04/16/2022 6:29 PM Dictation Location: [place] [address] Transcribed By: [facility] 04/16/221828 Dictated By: Akil Osman DO 04/16/221826 Signed By: 04/16/221828 Normal [facility] XR knee LT 4V*on 01-29-2022 XR knee LT 4V* [facility] [employer] Other XR knee LT 4V* [facility] [employer] Other XR knee LT 4V* [address] [place] [address] [employer] Other XR knee LT 4V* [place] [address] No rt [employer] Other XR knee LT 4V* XRay Report [employer] Other XR knee LT 4V* Signed [employer] Other XR knee LT 4V* Patient: Corie Courtney MR#: [id number] [place] [employer] Other XR knee LT 4V* [id number] [employer] Other XR knee LT 4V* : 1950 Acct:[id number] [employer] Other XR knee LT 4V* Age/Sex: 71 / F ADM Date: 01/29/22 [employer] Other XR knee LT 4V* Loc: XDUCLY Room: Type: [facility] [employer] Other XR knee LT 4V* Attending Dr: Estelita ACEVEDO [employer] Other XR knee LT 4V* Ordering Provider: CURTIS Bhardwaj [employer] Other XR knee LT 4V* Date of Service: 01/29/22 [employer] Other XR knee LT 4V* XR/XR knee LT 4V*: LEFT KNEE PAIN [employer] Other XR knee LT 4V* Copies to: Estelita Sheridan, YARITZAC [employer] Other XR knee LT 4V* LEFT KNEE - 4 views N [facility] [employer] Other XR knee LT 4V* CLINICAL HISTORY: Left knee pain and swelling for 2 months. No known trauma. [employer] Other XR knee LT 4V* COMPARISON: None Nort [employer] Other XR knee LT 4V* FINDINGS: [employer] Other XR knee LT 4V* Large knee joint effusion with likely Ness's cyst. Vascular calcifications. Bones are grossly [employer] Other XR knee LT 4V* demineralized. No acute bony process. Minimal degenerative change. No significant joint space [employer] Other XR knee LT 4V* narrowing. [employer] Other XR knee LT 4V* XR/XR knee LT 4V* [employer] Other XR knee LT 4V* IMPRESSION: [employer] Other XR knee LT 4V* LARGE KNEE JOINT EFFUSION WITH PRESUMED NESS'S CYST NOTED. MINIMAL DEGENERATIVE CHANGE. NO ACUTE [employer] Other XR knee LT 4V* BONY PROCESS. [employer] Other XR knee LT 4V* Impression dictated by: Obie Chaidez Jr. DDominiqueODominique01/29/2022 5:02 PM [employer] Other XR knee LT 4V* Dictation Location: RADIO-PC-09 [employer] Other XR knee LT 4V* Transcribed By: PWS 01/29/221701 [employer] Other XR knee LT 4V* Dictated By: Obie Chaidez Jr, 01/29/221700 [employer] Other XR knee LT 4V* Signed By: [place] [facility] [employer] Other XR knee LT 4V* 01/29/221701 [facility] [employer] Other XR WRIST LT MIN 3 Von 2018 XR WRIST LT MIN 3 V Patient: CORIE COURTNEY Exam Date: 01/15/2019 : 1950 Gender:F Ordering : DR. GUME RODRIGUEZ M.D. Admission #: [id number] Family : Order #: [id number] CLICK HERE TO VIEW EXAM RADIOLOGY REPORT [...] Sheehan M.D. on 01/15/2019 at 08:27 Normal [facility] Vital Signs Date Time Vital Sign Value Performing Clinician Facility 03-22-2023 09:00-0400 Body height 149.86 cm [employer] Other [employer] Other 03-22-2023 09:00-0400 Body mass index (BMI) [Ratio] 19.59 kg/m2 [employer] Other [employer] Other 03-22-2023 09:00-0400 Body temperature 96.4 [degF] Joy Kaiser Other [employer] Other 03-22-2023 09:00-0400 Body weight 44 kg Joy Kaiser Other [employer] Other 03-22-2023 09:00-0400 Diastolic blood pressure 84 mm[Hg] Joy Kaiser Other [employer] Other 03-22-2023 09:00-0400 Respiratory rate 20 /min Joy Kaiser Other [employer] Other 03-22-2023 09:00-0400 SaO2% (BldA) [Mass fraction] 97 % Joy Kaiser Other [employer] Other 03-22-2023 09:00-0400 Systolic blood pressure 158 mm[Hg] Joy Kaiser Other [employer] Other 03-04-2023 08:13-0400 Body height 152.4 cm Delfina Trevino Work Phone: BF-Wewrjukcmi-[place] 250 DO Work Phone: 03-04-2023 08:13-0400 Body mass index (BMI) [Ratio] 18.75 kg/m2 Delfina Trevino Work Phone: CJ-Xjgjxmavfg-Xdzpmr [place] 250 DO Work Phone: 03-04-2023 08:13-0400 Body surface area Derived from formula 1.37 m2 Delfina Trevino Work Phone: BS-Yeastdtrpi-Tpcrvf [place] 250 DO Work Phone: 03-04-2023 08:13-0400 Body weight 43.55 kg Delfina Trevino Work Phone: CE-Wcvoaspxdj-Fmndul [place] 250 DO Work Phone: 03-04-2023 08:13-0400 Diastolic blood pressure 68 mm[Hg] Delfina K Myerholtz Work Phone: NR-Lywqqutrln-Fqyiwo [place] 250 DO Work Phone: 03-04-2023 08:13-0400 Heart rate 83 /min Delfina K Myerholtz Work Phone: DA-Toxsjaqdlx-Egeaef [place] 250 DO Work Phone: 03-04-2023 08:13-0400 Systolic blood pressure 122 mm[Hg] Delfina K Myerholtz Work Phone: WP-Zqlfquyovp-Cvvphf [place] 250 DO Work Phone: 02-28-2023 09:46-0400 Diastolic blood pressure 77 mm[Hg] ELECTROMEDICAL EQUIPMENT TECHNICIAN Delfina Myerholtz Work Phone: [facility] 02-28-2023 09:46-0400 Heart rate 90 /min ELECTROMEDICAL EQUIPMENT TECHNICIAN Delfina Myerholtz Work Phone: [facility] 02-28-2023 09:46-0400 Systolic blood pressure 133 mm[Hg] ELECTROMEDICAL EQUIPMENT TECHNICIAN Delfina Myerholtz Work Phone: [facility] 02-28-2023 09:44-0400 Body height 152.4 cm ELECTROMEDICAL EQUIPMENT TECHNICIAN Delfina Myerholtz Work Phone: [facility] 02-28-2023 09:44-0400 Body weight 45.35 kg ELECTROMEDICAL EQUIPMENT TECHNICIAN Delfina Myerholtz Work Phone: [facility] 02-28-2023 00:00-0400 93 1 Jaquelin Connell MD Work Phone: [facility] 600 DO Work Phone: Comment on above: [id number] 12-16-2022 16:50-0400 Body temperature 98.3 [degF] ELECTROMEDICAL EQUIPMENT TECHNICIAN Delfina Myerholtz Work Phone: [facility] 12-16-2022 16:50-0400 Diastolic blood pressure 90 mm[Hg] ELECTROMEDICAL EQUIPMENT TECHNICIAN Delfina Myerholtz Work Phone: [facility] 12-16-2022 16:50-0400 Heart rate 91 /min ELECTROMEDICAL EQUIPMENT TECHNICIAN Delfina Myerholtz Work Phone: [facility] 12-16-2022 16:50-0400 Respiratory rate 20 /min ELECTROMEDICAL EQUIPMENT TECHNICIAN Delfina Myerholtz Work Phone: [facility] 12-16-2022 16:50-0400 SaO2% (BldA) [Mass fraction] 100 % ELECTROMEDICAL EQUIPMENT TECHNICIAN Delfina Myerholtz Work Phone: [facility] 12-16-2022 16:50-0400 Systolic blood pressure 180 mm[Hg] ELECTROMEDICAL EQUIPMENT TECHNICIAN Delfina Myerholtz Work Phone: [facility] 12-16-2022 16:49-0400 Body height 152.4 cm ELECTROMEDICAL EQUIPMENT TECHNICIAN Delfina Myerholtz Work Phone: [facility] 12-16-2022 16:49-0400 Body weight 48.98 kg ELECTROMEDICAL EQUIPMENT TECHNICIAN Delfina Myerholtz Work Phone: [facility] 09-22-2022 16:20-0500 Body height 152.4 cm Trap[employer]en[employer] Other [facility] [employer] Other 09-22-2022 16:20-0500 Body mass index (BMI) [Ratio] 19.76 kg/m2 [employer] Other [employer] Other 09-22-2022 16:20-0500 Body temperature 97.4 [degF] [employer] Other [employer] Other 09-22-2022 16:20-0500 Body weight 45.9 kg Linda Fontanez Other [employer] Other 09-22-2022 16:20-0500 Diastolic blood pressure 82 mm[Hg] Linda Fontanez Other [employer] Other 09-22-2022 16:20-0500 Respiratory rate 18 /min Linda Fontanez Other [employer] Other 09-22-2022 16:20-0500 SaO2% (BldA) [Mass fraction] 96 % Linda Fontanez Other [employer] Other 09-22-2022 16:20-0500 Systolic blood pressure 130 mm[Hg] Linda Fontanez Other [facility] [employer] Other 04-18-2022 11:34-0400 Heart rate 71 /min ELECTROMEDICAL EQUIPMENT TECHNICIAN Delfina Myerholtz Work Phone: [facility] 04-18-2022 11:34-0400 Respiratory rate 20 /min ELECTROMEDICAL EQUIPMENT TECHNICIAN Delfina Myerholtz Work Phone: [facility] 04-18-2022 11:11-0400 Body temperature 97.2 [degF] ELECTROMEDICAL EQUIPMENT TECHNICIAN Delfina Myerholtz Work Phone: [facility] 04-18-2022 11:11-0400 Diastolic blood pressure 68 mm[Hg] ELECTROMEDICAL EQUIPMENT TECHNICIAN Delfina Myerholtz Work Phone: [facility] 04-18-2022 11:11-0400 SaO2% (BldA) [Mass fraction] 98 % ELECTROMEDICAL EQUIPMENT TECHNICIAN Delfina Myerholtz Work Phone: [facility] 04-18-2022 11:11-0400 Systolic blood pressure 100 mm[Hg] ELECTROMEDICAL EQUIPMENT TECHNICIAN Delfina Myerholpenny Work Phone: [facility] 04-18-2022 04:48-0400 Body weight 45 kg ELECTROMEDICAL EQUIPMENT TECHNICIAN Delfina Trevino Work Phone: [facility] 04-17-2022 00:00-0400 70 1 [facility] Work Phone: Comment on above: [id number] 04-16-2022 23:00-0400 Body height 152.4 cm ELECTROMEDICAL EQUIPMENT TECHNICIANHuang Trevino Work Phone: [facility] 01-29-2022 17:20-0400 Body height 152.4 cm Estelita Sheridan Other [facility] [employer] Other 01-29-2022 17:20-0400 Body mass index (BMI) [Ratio] 19.49 kg/m2 Estelita Sheridan Other [facility] [employer] Other 01-29-2022 17:20-0400 Body temperature 98 [degF] Estelita Sheridan Other [employer] Other 01-29-2022 17:20-0400 Body weight 45.27 kg Estelita Sheridan Other [employer] Other 01-29-2022 17:20-0400 Diastolic blood pressure 77 mm[Hg] Estelita Sheridan Other [employer] Other 01-29-2022 17:20-0400 Respiratory rate 18 /min Estelita Sheridan Other [employer] Other 01-29-2022 17:20-0400 SaO2% (BldA) [Mass fraction] 97 % Estelita Sheridan Other [employer] Other 01-29-2022 17:20-0400 Systolic blood pressure 131 mm[Hg] Estelita Cornejomond Other [employer] Other Encounters Encounter Date Encounter Type Care Provider Facility Start: 06-20-2023 End: 06-21-2023 ambulatory Serge Rodriguez MD Facility:[facility] Start: 05-23-2023 End: 05-24-2023 ambulatory Serge Rodriguez MD Facility:[facility] Start: 03-22-2023 End: 03-22-2023 ambulatory Joy Kaiser Other [employer] Other Start: 03-22-2023 Office outpatient ne w 45 minutes Joy Kaiser [facility] Start: 03-07-2023 End: 03-07-2023 ambulatory Delfina Trevino Facility:[facility] Start: 03-07-2023 End: 03-07-2023 ambulatory Delfina Carmelita Trevino Facility:[facility] Start: 03-07-2023 End: 03-07-2023 Patient encounter procedure IFTIKHAR Trevino Work Phone: [facility]Res[facility] Work Phone: Start: 03-07-2023 End: 03-07-2023 ambulatory ELECTROMEDICAL EQUIPMENT TECHNICIAN Delfina Trevino Work Phone: [facility] Work Phone: Start: 03-07-2023 End: 03-07-2023 Patient encounter procedure IFTIKHAR Trevino Work Phone: [facility] Work Phone: Start: 03-04-2023 NPVRFRL, Provider: Jaquelin Connell, Status: Pen, Time: 8:20 AM Jaquelin Connell MD Work Phone: -[facility] 600 DO Work Phone: Start: 03-04-2023 Office consultation new/estab patient 60 min Delfina Carmelita Belinda Work Phone: QD-Qglvbsmwhx-Mxskhtbk 250 DO Work Phone: Start: 03-04-2023 ambulatory Ms. Delfina Thomas Belinda Facility: Start: 03-03-2023 AUDIT Jaquelin de jesus MD Work Phone: -[facility] 600 DO Work Phone: Start: 02-28-2023 End: 02-28-2023 ambulatory Delfina Trevino Facility:[facility] Start: 02-28-2023 End: 02-28-2023 ambulatory ELECTROMEDICAL EQUIPMENT TECHNICIAN Delfina Mae Belinda Work Phone: [facility] Work Phone: Start: 02-28-2023 End: 02-28-2023 Patient encounter procedure ELECTROMEDICAL EQUIPMENT TECHNICIAN Delfina Belinda Work Phone: [facility] Work Phone: Start: 12-16-2022 End: 12-16-2022 Emergency department patient visit Delfina Trevino Facility:[facility] Start: 12-16-2022 End: 12-16-2022 Emergency department patient visit ELECTROMEDICAL EQUIPMENT TECHNICIAN Delfina Belinda Work Phone: [facility]-Emergency Room Work Phone: Start: 09-22-2022 End: 09-22-2022 ambulatory Linda Fontanez Other [facility] [employer] Other Start: 09-22-2022 Office outpatient ne w 30 minutes Linda Fontanez [facility] Start: 06-16-2022 End: 10-05-2022 ambulatory Mark Avila Facility:[facility] Start: 05-12-2022 End: 05-12-20[facility] Start: 05-12-2022 End: 05-12-2022 Patient encounter procedure ELECTROMEDICAL EQUIPMENT TECHNICIAN Delfina Belinda Work Phone: [facility] [address] Start: 04-19-2022 Telephone encounter Jaquelin ha MD Work Phone: -[facility] 250 DO Work Phone: Start: 04-16-2022 End: 04-18-2022 ambulatory Delfina Trevino Facility:[facility] Start: 04-16-2022 End: 04-18-2022 Evaluation and management of inpatient ELECTROMEDICAL EQUIPMENT TECHNICIAN Delfinadaniel Trevino Work Phone: [facility] Start: 01-29-2022 End: 01-29-2022 ambulatory Estelita Sheridan Other [facility] [employer] Other Start: 01-29-2022 Office outpatient vi sit 15 minutes Estelita Sheridan [facility] Start: 01-15-2019 End: 01-15-2019 Patient encounter procedure [facility] Facility: Patient encounter status Delfina Mae Belinda Work Phone: [facility]-Jlluiiaydb-Lmoreqdj 250 DO Work Phone: Procedures Date Procedure Procedure Detail Performing Clinician Start: 03-07-2023 Dual energy X-ray absorptiometry ELECTROMEDICAL EQUIPMENT TECHNICIAN Delfina Trevino Work Phone: Start: 02-28-2023 Radionuclide myocard ial perfusion stress study ELECTROMEDICAL EQUIPMENT TECHNICIAN Delfina Trevino Work Phone: Start: 02-28-2023 Plain chest X-ray ELECTROMEDICAL EQUIPMENT TECHNICIAN Delfina Trevino Work Phone: Start: 12-16-2022 Plain X-ray of right hip ELECTROMEDICAL EQUIPMENT TECHNICIAN Delfina Trevino Work Phone: Start: 05-12-2022 X-ray of both ankles AP RN Delfina Belinda Work Phone: Start: 05-12-2022 X-ray of both feet ELECTROMEDICAL EQUIPMENT TECHNICIAN Delfina Belinda Work Phone: Start: 04-16-2022 Duplex scan of lower limb veins ELECTROMEDICAL EQUIPMENT TECHNICIAN Delfina Belinda Work Phone: Start: 04-16-2022 Plain chest X-ray ELECTROMEDICAL EQUIPMENT TECHNICIAN Delfina Belinda Work Phone: section Delfina Mae Belinda Work Phone: Excision of basal ce ll carcinoma Delfina Mae Belinda Work Phone: Operative procedure on foot Delfina Mae Belinda Work Phone: Operative procedure on wrist Delfina Mae Belinda Work Phone: SARS-CoV-2, Influenz a & RSV (PCR) ELECTROMEDICAL EQUIPMENT TECHNICIAN Delfina Belinda Work Phone: Tonsillectomy Delfina Mae Samantha barrera Work Phone: Urine culture ELECTROMEDICAL EQUIPMENT TECHNICIANHuang Mathis Belinda Work Phone: Plan of Treatment Date Care Activity Detail Author Start: 02-28-2023 Radionuclide myocard ial perfusion stress study NM jony perf SPECT rest & str [facility] Start: 05-12-2022 Hemolytic complement CH50 level [facility] Work Phone: Start: 05-12-2022 [facility] Work Phone: Start: 05-12-2022 X-ray of both ankles XR ankle BI 2V [facility] Start: 05-12-2022 X-ray of both feet XR foot BI 2V [facility] Start: 05-12-2022 End: 05-12-2022 Patient encounter procedure Departed Clinical [facility]-X[facility] [address] Start: 04-18-2022 [facility] Work Phone: Start: 04-16-2022 Referral to [employer] Attendant [facility] Work Phone: Start: 04-16-2022 Referral to small products ii assembler [facility] Work Phone: Start: 04-16-2022 Hospital admission [facility] Work Phone: Alkaline phosphatase - bone isoenzyme measurement [facility] Work Phone: Alkaline phosphatase [Enzymatic activity/volume] in Serum or Plasma [facility] Work Phone: Alkaline phosphatase isoenz panel - Serum or Plasma [facility] Work Phone: Blood chemistry [facility] Work Phone: Intestinal alkaline phosphatase measurement [facility] Work Phone: Patient Education Hip Pain (DC) [facility] Work Phone: Patient referral [facility] Work Phone: Immunizations Immunization Date Immunization Notes Care Provider Fa [facility] 08-03-2021 influenza, injectabl e, quadrivalent, contains preservative Jaquelin Connell MD Work Phone: [facility] 281 DO Work Phone: 05-14-2020 influenza, injectabl e, quadrivalent, contains preservative Jaquelin Connell MD Work Phone: [facility] 788 DO Work Phone: 2019 pneumococcal polysaccharide vaccine, 23 valent Jaquelin Connell MD Work Phone: [facility] 341 DO Work Phone: 08-01-2019 influenza, injectabl e, quadrivalent, contains preservative Jaquelin Connell MD Work Phone: [facility] 600 DO Work Phone: 06-06-2018 pneumococcal conjuga te vaccine, 13 valluke Connell MD Work Phone: [facility] 600 DO Work Phone: 05-29-2018 pneumococcal conjuga te vaccine, 13 valluke Connell MD Work Phone: [facility] 600 DO Work Phone: 07-23-2016 influenza, seasonal, injectable, preservative free Jaquelin Connell MD Work Phone: [facility] 600 DO Work Phone: 07-23-2016 pneumococcal polysaccharide vaccine, 23 valent Jaquelin Connell MD Work Phone: [facility] 600 DO Work Phone: 05-18-2014 tetanus and diphther ia toxoids, adsorbed, preservative free, for adult use (5 Lf of tetanus toxoid and 2 Lf of diphtheria toxoid) Jaquelin Connell MD Work Phone: [facility] 600 DO Work Phone: Payers Date Payer Category Payer Unknown [id number] 2022 Private Health Insurance [id number] 2022 Self-pay [id number] 2021 Medicare [id number] 2. [id number] 1959 Medicare [id number] 1950 Unknown [id number] [id number] 1950 Unknown [id number] [id number] 1950 Unknown [id number] [id number] 1950 Unknown [id number] [id number] 1950 Unknown [id number] [id number] Unknown Unknown [facility] [id number] Unknown [id number] [id number] Unknown [id number] [id number] Unknown [id number] 2.16.840.1.128628.3.579.2.531 Unknown [id number] 2.16.840.1.556742.3.579.2.531 Unknown [id number] 2.16.840.1.507751.3.579.2.531 Unknown [id number] 2.16.840.1.178672.3.579.2.531 Unknown [id number] [id number] Social History Date Type Detail Facility Sex Assigned At [employer] Other Start: 04-17-2022 End: 12-16-2022 Tobacco smoking status DCIS Smoker (finding) [facility] Start: 1950 Sex Assigned At Female F [facility] Occasional alcohol use Occasional alcohol use K[facility]-Yejgghicdx-Psevhcjd 250 DO Work Phone: Comment on above: 1 Pot of coffee amy y; 1 PPD; Goals Date Patient Goal Desired Activity /State Functional Status Date Assessment Result Facility 04-18-2022 Functional status Patient is Pro gressing Toward Baseline [facility] Work Phone: Mental Status Date Assessment Result Facility 04-18-2022 Cognitive function Cognitive Sta tus Patient at Baseline [facility] Work Phone: Clinical Notes 01-29-2022 to [...] all NSAIDs due to advanced kidney disease [employer] Other 08-07-2022 Consult note Author Jaquelin Connell [facility] April 18, 2022 9:21am Note Date/Time April 17, 2022 1:2 5pm [facility] [address] [place] [address] Cardiology Consult Note Signed Patient: Corie Courtney MR#: [id number] : 1950 Acct:[id number] Age/Sex: 71 / F Adm Date: 2 Loc: Room: [address] [place] [address] Type: ADM INOo Attending Dr: Parvin Batres MD Copies to: MD Delfina Block,ELECTROMEDICAL EQUIPMENT TECHNICIAN,PAPER FOLDING MACHINE OPERATOR Jaquelin Connell MD~ Cardiology HPI History of [...] DAILY 04/16/22 [History Confirmed 04/16/22] glucosamine 750 ql-fykgxl-krb 2-C 30 mg-D3 1,000 unit-jane 1 mg tablet (Miwodtucqhw-Ulzeycegfkn-JVT + vitD) 1 tab PO DAILY 04/16/22 [...] Lymph # (Auto) 2.8 1.9 (1.00-4.8) x10E3/uL [place] # (Auto) 0.8 0.6 (0.0-0.8) x10E3/uL Eos [...] disease Documented By: Jaquelin Connell MD 04/17/22 1329 Signed By: <Electronically signed by MD Jaquelin Connell> 04/18/22 0934 [facility] Work Phone: 1(897) 749-409508-07-2022 Progress note Author Parvin Batres [facility] April 18, 2022 9:07am Note Date/Time April 18, 2022 9:0 2am [facility] [address] [place] [address] Hospitalist Progress Note Signed Patient: Corie Courtney MR#: [id number] : 1950 Acct:[id number] Age/Sex: 71 / F Adm Date: 2 Loc: 3T Room: [address] [place] [address] Type: ADM INOo Attending Dr: Parvin Batres [...] signed by Parvin Batres MD> 04/18/22 0907 [facility] Work Phone: 1(838) 497-938108-06-2022 Progress note Author Parvin Batres [facility] April 17, 2022 9:03am Note Date/Time April 17, 2022 8:5 6am [facility] [address] [place] [address] Hospitalist Progress Note Signed Patient: Corie Courtney MR#: [id number] : 1950 Acct:[id number] Age/Sex: 71 / F Adm Date: 2 Loc: Room: [address] [place] [address] Type: ADM INOo Attending Dr: Parvin Batres [...] signed by Parvin Batres MD> 04/17/22 0903 [facility] Work Phone: 1(849) 389-399908-05-2022 History and physical note Author Josué Alvarez [facility] April 16, 2022 9:42pm Note Date/Time April 16, 2022 9:4 0pm [facility] [address] [place] [address] Hospitalist H&P Signed Patient: Corie Courtney MR#: [id number] : 1950 Acct:[id number] Age/Sex: 71 / F Adm Date: 2 Loc: Room: [address] [place] [address] Type: ADM INOo Attending Dr: Josué Alvarez DO Copies to: Delfina Trevino APRN,PAPER FOLDING MACHINE OPERATOR Josué Alvarez, DO~ HPI DATE OF EXAMINATION: [...] % (Auto) 30.4 % (.) 04/16/22 18:10 [place] % (Auto) 8.6 % (.) 04/16/22 18:10 Eos % (Auto) 3.7 % (.) 04/16/22 18:10 Baso % (Auto) 1.4 % (.) 04/16/22 18:10 Neut # (Auto) 5.1 x10E3/uL (1.8-7.7) 04/16/22 18:10 Lymph # (Auto) 2.8 x10E3/uL (1.00-4.8) 04/16/22 18:10 [place] # (Auto) 0.8 x10E3/uL (0.0-0.8) 04/16/22 18:10 [...] <Electronically signed by Josué Alvarez DO> 04/16/222141 [facility] Work Phone: 1(888) 536-602306-23-2022 History of Present illness Narrative* The patient [...] follow-up on as-needed basis on her request CN-Fuodgqhzvx-Jwtunmli 250 DO Work Phone: 1(867) 591-128405-20-2022 Evaluation note* Encounter Date Diagnosis Assessment Notes [...] January, Other Ness's cyst material was printed [employer] Other Chief complaint Narrative - ReportedCORIE COURTNEY is being seen for a consultation for POC.TZ-Kwldwwbzwa-Egjzboge 250 DO Work Phone: Consult note Author Jaquelin Connell [facility] April 18, 2022 9:21am Note Date/Time April 17, 2022 1:2 5pm [facility] [address] [place] [address] Cardiology Consult Note Signed Patient: Corie Courtney MR#: [id number] : 1950 Acct:[id number] Age/Sex: 71 / F Adm Date: 2 Loc: Room: [address] [place] [address] Type: ADM INOo Attending Dr: Parvin Batres MD Copies to: MD Dlefina Block,ELECTROMEDICAL EQUIPMENT TECHNICIAN,PAPER FOLDING MACHINE OPERATOR Jaquelin Connell MD~ Cardiology HPI History of [...] DAILY 04/16/22 [History Confirmed 04/16/22] glucosamine 750 pz-apxzxw-wzu 2-C 30 mg-D3 1,000 unit-jane 1 mg tablet (Mlpyrvqefao-Zaypieblmpg-VJR + vitD) 1 tab PO DAILY 04/16/22 [...] Lymph # (Auto) 2.8 1.9 (1.00-4.8) x10E3/uL [place] # (Auto) 0.8 0.6 (0.0-0.8) x10E3/uL Eos [...] 1324 Signed By: <Electronically signed by MD Jaquelin Connell> 04/18/22 0921 [facility] Work Phone: Discharge summary Author Parvin Batres [facility] April 18, 2022 5:54pm Note Date/Time April 18, 2022 5:5 4pm [facility] [address] [place] [address] Discharge Summary Signed Patient: Corie Courtney MR#: [id number] : 1950 Acct:[id number] Age/Sex: 71 / F Adm Date: 2 Loc: Room: [address] [place] [address]: Parvin Batres MD Copies to: MD Delfina Block,ELECTROMEDICAL EQUIPMENT TECHNICIAN,PAPER FOLDING MACHINE OPERATOR~ Providers Date of Discharge: 04/18/22 Discharging Provider: [...] % (Auto) 65.1, Lymph % (Auto) 22.3, [place] % (Auto) 8.3, Eos % (Auto) 3.3, Baso % (Auto) 1.0, Neut # (Auto) 5.3, Lymph # (Auto) 1.8, [place] # (Auto) 0.7, Eos # (Auto) 0.3, [...] BY MOUTH EVERY DAY FOR 90 DAYS Qeevgmnd-Pjgyht-LBZ with vit D 750-30-1,000-1 sv-ax-diuz-mg Tablet 1 tab PO DAILY ibuprofen 200 [...] to confirm date/time. ) Delfina Trevino APRN, TANK STORAGE SUPERVISOR-C [Primary Care Provider] - (Call office on Tuesday to schedule follow-up with your Primary Care Provider in 3-5 days. ) Documented By: Parvin Batres MD 04/18/221752 Signed By: <Electronically signed by Parvin Batres MD> 04/18/221753 [facility] Work Phone: Evaluation note* Diagnosis Onset Date Resolution Status Acute diastolic heart failure acute COPD (chronic obstructive pulmonary disease) acute Edema, peripheral acute Elevated blood pressure reading acute Elevated troponin acute History of stroke acute Hyperlipidemia acute Hypertension acute Leg swelling acute Myocardial infarction type 2 acute Tobacco abuse acute [facility] Work Phone: Evaluation noteNo assessment information available [facility] Work Phone: Evaludavcg noteNorth [employer] Other History and physical note Author Josué Alvarez [facility] April 16, 2022 9:42pm Note Date/Time April 16, 2022 9:4 0pm [facility] [address] [place] [address] Hospitalist H&P Signed Patient: Corie Courtney MR#: [id number] : 1950 Acct:[id number] Age/Sex: 71 / F Adm Date: 2 Loc: Room: [address] [place] [address] Type: ADM INOo Attending Dr: Josué Alvarez DO Copies to: Delfina Trevino APRN,PAPER FOLDING MACHINE OPERATOR Josué Alvarez DO~ HPI DATE OF EXAMINATION: [...] % (Auto) 30.4 % (.) 04/16/22 18:10 [place] % (Auto) 8.6 % (.) 04/16/22 18:10 Eos % (Auto) 3.7 % (.) 04/16/22 18:10 Baso % (Auto) 1.4 % (.) 04/16/22 18:10 Neut # (Auto) 5.1 x10E3/uL (1.8-7.7) 04/16/22 18:10 Lymph # (Auto) 2.8 x10E3/uL (1.00-4.8) 04/16/22 18:10 [place] # (Auto) 0.8 x10E3/uL (0.0-0.8) 04/16/22 18:10 [...] <Electronically signed by Josué Alvarez DO> 04/16/222141 [facility] Work Phone: History general Narrative - Reported* Type Description Date Medical History HTN Medical History hypercholesterolemia Medical History Arthritis Surgical History Left Foot Surgery Hospitalization History Stroke 2019 [employer] Other History general Narrative - Reported* Type [...] History SEE ABOVE Hospitalization History EDEMA 2021 [employer] Other History general Narrative - [employer] Other Progress note Author Parvin Batres [facility] April 17, 2022 9:03am Note Date/Time April 17, 2022 8:5 6am [facility] [address] [place] [address] Hospitalist Progress Note Signed Patient: Corie Courtney MR#: [id number] : 1950 Acct:[id number] Age/Sex: 71 / F Adm Date: 2 Loc: Room: [address] [place] [address] Type: ADM INOo Attending Dr: Parvin Batres [...] signed by Parvin Batres MD> 04/17/22 0903 [facility] Work Phone: Progress note Author Parvin Batres [facility] April 18, 2022 9:07am Note Date/Time April 18, 2022 9:0 2am [facility] [address] [place] [address] Hospitalist Progress Note Signed Patient: Corie Courtney MR#: [id number] : 1950 Acct:[id number] Age/Sex: 71 / F Adm Date: 2 Loc: 3T Room: [address] [place] [address] Type: ADM INOo Attending Dr: Parvin Batres [...] signed by Parvin Batres MD> 04/18/22 0907 [facility] Work Phone: Progress note Author Jaquelin Connell [facility] April 18, 2022 12:03pm Note Date/Time April 18, 2022 12: 03pm [facility] [address] [place] [address] Cardiology Progress Note Signed Patient: Corie Courtney MR#: [id number] : 1950 Acct:[id number] Age/Sex: 71 / F Adm Date: 2 Loc: Room: [address] [place] [address] Type: ADM INOo Attending Dr: Parvin Batres [...] % (Auto) 65.1 Lymph % (Auto) 22.3 [place] % (Auto) 8.3 Eos % (Auto) 3.3 Baso % (Auto) 1.0 Neut # (Auto) 5.3 Lymph # (Auto) 1.8 [place] # (Auto) 0.7 Eos # (Auto) 0.3 [...] Cloudy A Urine pH 7.0 Ur Specific [place] 1.013 Urine Protein Negative Urine Glucose (UA) [...] signed by MD Jaquelin Connell> 04/18/22 1203 [facility] Work Phone: Summary Purpose Family History No [...] DATE CREATED AUTHOR AUTHOR'S ORGANIZ ATION 03/21/2023 [facility] DATE CREATED AUTHOR AUTHOR'S ORGANIZ ATION 06/27/2023 [facility] DATE CREATED AUTHOR AUTHOR'S ORGANIZ ATION 07/09/2023 [facility] REASON FOR VISIT (unrecogniz ed section and content) LEFT KNEE PAIN X2 MONTHSRENA L CHRONIC RENAL INSUFFIENCY Care Teams (unrecognized sec tion and content) Team Status: Inactive Member Role Status Dates Delfina Trevino APRN TANK STORAGE SUPERVISOR-C Primary Care Provide r Active Mark Avila MD Attending Provider Active Team Status: Inactive Member Role Status Dates Delfina Trevino APRN TANK STORAGE SUPERVISOR-C Primary Care Provide r Active Wilman Ramirez [...] Member Role Status Dates Delfina Trevino APRN TANK STORAGE SUPERVISOR-C Primary Care Provide r Active Team Status: Inactive Member Role Status Dates Delfina Trevino APRN TANK STORAGE SUPERVISOR-C Primary Care Provide r Active Layo Sheridan APRN Emergency Provider Active Team Status: Inactive Member Role Status Dates Delfina Trevino APRN TANK STORAGE SUPERVISOR-C Primar y Care Provider, Attending Provider Active Jerica Carrasco DO Referring Provider Active Team Status: Inactive Member Role Status Dates Delfina Trevino APRN TANK STORAGE SUPERVISOR-C Primar y Care Provider, Attending Provider Active [...] BE BASED ON THE PRIMARY CLINICAL RECORDS. [facility]. provides no warranty or guarantee of the accuracy or completeness of information in this document.
--- NOTE | 2023-10-31 13:47 | P.CN_ITS ---
Consult Note: HPI Data of Consult Patient: known to practice within the last 3 years Consult date: 10/31/23 Requesting Physician: Serge Rodriguez MD Primary Care Provider: Non-Staff Physician, Consult Narrative Reason for consult: right knee pain Narrative: 73yof who presents for assessment. she notes good improvement after her recent right hip injection. she now notes persistent right knee pain. has engaged in >6 weeks of provider directed home exercises, with minimal benefit. uses butrans patch. denies adverse med side effects. cc:: CC: Serge Rodriguez MD Review of Systems ROS Status of ROS 10 or more systems reviewed and unremark able except as noted in history and [facility] Basal cell carcinoma ?C44.91 - Basal cell carcinoma of skin, unspecified (ICD-10) Anxiety ?F41.9 - Anxiety disorder, unspecified (ICD-10) Kidney disease ?N28.9 - Disorder of kidney and ureter, unspecified (ICD-10) Osteoarthritis ?M19.90 - Unspecified osteoarthritis, unspecified site (ICD-10) Rheumatoid arthritis ?M06.9 - Rheumatoid arthritis, unspecified (ICD-10) CHF (congestive heart failure) ?I50.9 - Heart failure, unspecified (ICD-10) High cholesterol ?E78.00 - Pure hypercholesterolemia, unspecified (ICD-10) COPD (chronic obstructive pulmonary disease) ?J44.9 - Chronic obstructive pulmonary disease, unspecified (ICD-10) Arthritis of right hip ?M16.11 - Unilateral primary osteoarthritis, right hip (ICD-10) Surgical History H/O foot surgery ?Z98.890 - Other specified postprocedural states (ICD-10) History of section, classical ?Z98.891 - History of uterine scar from previous surgery (ICD-10) Meds Home Medications and Allergies Home Medications Medication Instructions Recorded Confirmed Type acetaminophen 325 mg capsule 1,300 mg PO BID PRN pain 05/24/23 10/17/23 History (Tylenol) albuterol sulfate 90 mcg/actuation 1 inh inhalation Q6H 05/24/23 10/17/23 History aerosol inhaler atorvastatin 20 mg tablet 20 mg PO DAILY 05/24/23 10/17/23 History buprenorphine 5 mcg/hour weekly 1 patch transdermal Q7D 05/24/23 10/17/23 History transdermal patch (Butrans) buspirone 5 mg tablet 5 mg PO BID 05/24/23 10/17/23 History cholecalciferol (vitamin D3) 25 25 mcg PO DAILY 05/24/23 10/17/23 History mcg (1,000 unit) capsule furosemide 20 mg tablet 20 mg PO BID 05/24/23 10/17/23 History lisinopril 2.5 mg tablet 2.5 mg PO DAILY 05/24/23 10/17/23 History metoprolol tartrate 25 mg tablet 25 mg PO BID 05/24/23 10/17/23 History multivitamin 1 tab PO DAILY 05/24/23 10/17/23 History buprenorphine 5 mcg/hour weekly 1 patch transdermal Q7D #4 ea 06/22/23 Rx transdermal patch (Butrans) buprenorphine 5 mcg/hour weekly 1 patch transdermal Q7D #4 ea 06/23/23 10/17/23 Rx transdermal patch (Butrans) buprenorphine 5 mcg/hour weekly 1 patch transdermal Q7D #4 ea 08/23/23 10/17/23 Rx transdermal patch (Butrans) buprenorphine 5 mcg/hour weekly 1 patch transdermal Q7D #1 ea 10/20/23 Rx transdermal patch (Butrans) Allergies Allergy/AdvReac Type Severity Reaction Status Date / Time No Known Drug Allergies Allergy Verified 10/17/23 09:55 Exam Narrative Exam Narrative: Psych-alert and oriented x 3.? Attentive and appropriate, constitutionally normal, displays normal mood and affect per situation.? There are no obvious deficits in memory, reasoning, or intellect. Extremities-lower extremities are warm with minimal edema and palpable pulses. Knee-examination of the right knee reveals tenderness to palpation over the superior, inferior, lateral, and medial aspect of the knee.? Some swelling is noted without erythema. Pain is elicited with flexion and extension of the knee both actively and passively.? Some grinding is noted with these motions.? There is no notable ligamental laxity or instability.? Coordination remains intact.? Gait remains antalgic. Assessment and Plan Assessment and Plan (1) Osteoarthritis of right knee: Qualifiers: Osteoarthritis type: primary Qualified Code(s): M17.11 - Unilateral primary osteoarthritis, right knee (2) Osteoarthritis of right hip: Qualifiers: Osteoarthritis type: primary Qualified Code(s): M16.11 - Unilateral primary osteoarthritis, right hip Plan 73yof who presents for assessment. glad that she had good relief of right hip pain. for persistent right knee pain, will have her undergo right knee injection with durolane. she is in agreement. meds reviewed, no changes. follow up in 2-3 months. procedure: right knee injection medications: Durolane hyaluronic acid diagnosis: right knee osteoarthritis I explained the details of the procedure to the patient including the risks, benefits and alternatives. We had an informed discussion and the patient verbalized understanding and signed the consent form. All questions were answered appropriately.? A time out was performed.? After obtaining a comfortable seated position, the right knee was prepped with alcohol x3. A syringe containing the above medication was attached to a 25 guage, 1.5 inch needle under strict aseptic technique. The lateral tibial plateau was palpated.? The needle was then advanced through the subcutaneous tissue in a medial and superior direction towards the joint space.? The contents of the syringe were gently injected without any resistance. The needle was removed and pressure was applied to the injection site to decrease the incidence of ecchymosis and hematoma formation.? A sterile bandage was applied.
== END 2023-10-31 12:54 | disposition home or self-care (01) ==
LOC: PM 12:53
PROVIDERS: Visit Provider Anesthesiology
DX: M17.11 Unilateral primary osteoarthritis, right knee (principal); M16.11 Unilateral primary osteoarthritis, right hip
CPT/HCPCS: 20610; J7318

== ENCOUNTER 2024-01-26 10:49 | Outpatient (OUT) | payer MEDICARE, SELFPAY ==
--- OUTSIDE RECORDS SUMMARY | 2024-01-26 10:53 | XMS_ITS | CCD ---
Author Organization [facility] Care Team Providers Care Fitness Attendant Name Role Phone MISC, DOCTOR Primary Care Unavailable GUME RODRIGUEZ Admitting GUME Padron Attending ROGERS [place] Consulting Unavailable GUME RODRIGUEZ Consulting UnavailEstelita Breen Unavailable IFTIKHAR Trevino Primary Care Provide r DO Wilman Ramirez Emergency Provider DO Josué Alvarez Admit Provider RONEY Ding Other Provider Unavailable DO Jerica Carrasco Other Provider MD Wilbert East Other Provider MD Willie Milner Other Provider MD Jaquelin Connell Other Provider MD Zia Lloyd Other Provider IFTIKHAR Forrester Other Provider MD Paulina Garsia Other Provider MD Payal Horta Other Provider MD Kale Robles Other Provider MD Parvin Batres Attending Provider MD Mark Avila Attending Provider Linda Fontanez Unavailable IFTIKHAR Trevino Primary Care Provide r IFTIKHAR Sheridan Emergency Provider [phone] IFTIKHAR Trevino Attending Provider DO Jerica Carrasco Referring Provider [phone] Delfina Trevino Unavailable Unavailable Unavailable Jyo Saab Unavailable Belinda, . Delfina Thomas Primary Care Milly vailable Danilo, Dr. Willie Sepulveda Attending Unava ilable Belinda, Ms. Delfina Thomas Primary Care Milly vailable Ko, Dr. Hammer Referring Unavaila ble Trabdeirdre, Dr. Hammer Attending Unavaila ble Myerkyrie, IFTIKHAR Mae Attending Provider [facility] Provider IFTIKHAR Gordon Emergency Provider Layo Sheridan Admitting Unavailable Layo Sheridan Attending Unavailable Myerholtz, Delfina K Primary Care Unavailab le Myerholtz, Delfina K Attending Unavailab le Myerholtz, Delfina K Admitting Unavailab le Myerholtz, Delfina K Admitting Unavailab le Myerholtz, Delfina K Primary Care Unavailab le Myerholtz, Delfina K Attending Unavailab le Myerholtz, Delfina K Admitting Unavailab le Myerholtz, Delfina K Primary Care Unavailab le Myerhollitz, Delfina K Attending Unavailab Jerica Frank Referring Unavailable Myerholtz, Delfina K Admitting Unavailab le Myerholtz, Delfina K Primary Care Unavailab le Myerholtz, Delfina K Attending Unavailab le Enedelia Gordon Admitting Unavailable Enedelia Gordon Attending Unavailable [facility] Primary Care Unavaila ble Jennifer PATEL, Solomonrius Duran Attending Unavailable Jennifer PATEL, Andrius Roger Attending Unavailable Jennifer PATEL, Andrius Roger Attending Unavailable Jennifer PATELSerge Attending Unavailable Allergies Allergy Classification Reported Allergen(s) Allergy Type Date of Onset Reaction(s) Facility (2 sources) Acetaminophen / oxyCODONE Drug Allergy Unknown [facility] Other (2 sources) Clindamycin Drug Allergy Unknown [facility] Other (2 sources) PARoxetine Drug Allergy Unknown [facility] Other (2 sources) Pseudoephedrine Drug Allergy Unknown [facility] Other (2 sources) Sertraline Drug Allergy Unknown [email or web address] Other (1 source) Acetaminophen Drug Allergy 11-06-19 [facility] Repository (1 source) Clindamycin Drug Allergy 11-06-19 [facility] Repository (1 source) guaiFENesin Drug Allergy 11-06-19 [facility] Rep[facility] (1 source) oxyCODONE Drug Allergy 11-06-19 [facility] (1 source) PARoxetine Drug Allergy 11-06-19 [facility] (1 source) Phenylephrine Drug Allergy 11-06-19 [facility] Rep[facility] (1 source) Phenylpropanolamine Drug Allergy 11-06-19 [facility] (1 source) Sertraline Drug Allergy 11-06-19 [facility] Medications Current Medications Medication Drug Class(es) Dates Sig (Normalized) Sig (Original) acetaminophen 325 mg oral tablet (1 source) take 1 tablet by mouth every four hours albuterol 0.83 mg/ml inhalation solution (19 sources) beta2-Adrenergic Agonist Start: 01-14-2020 Albuterol Sulfate Active 1 AMPUL INHALATION Q4H January 13, 2020 11:00pm Start: 01-14-2020 take 1 puff(s) by in halation every four hours Albuterol Sulfate Active 2 PUFF INHALATION Q4H January 13, 2020 11:00pm take 1 puff(s) by in halation every four hours as needed Albuterol Sulfate HFA 108 MCG/ACT AERS INHALE 1 PUFF EVERY 4 HOURS NEEDED. Quantity: 0 Refills: 0 Ordered: 04-Mar-2023 DO Active amoxicillin 875 mg / clavulanate 125 mg oral tablet (8 sources) Penicillin-class Antibacterial Start: 04-18-2022 take 1 tablet by mouth twice daily Amoxicillin-Pot Clavulanate Active 1 TAB PO Twice daily 06 16April 17, 2022 11:00pm Start: 04-18-2022 take 1 tablet by mariano th twice daily Amoxicillin-Pot Clavulanate Active 1 TAB PO Twice daily 06 16April 18, 2022 12:00am aspirin 81 mg delayed release oral tablet (9 sources) Platelet Aggregation Inhibitor, Nonsteroidal Anti-inflammatory Drug Start: 06-28-2020 take 81 mg by mouth once daily Aspirin Active 81 MG PO Daily June 27, 2020 11:00pm Baby Aspirin Act amberly atorvastatin 20 mg oral tablet (12 sources) HMG-CoA Reductase Inhibitor Start: 06-27-2020 take 20 mg by mouth once daily Atorvastatin Active 20 MG PO Daily June 26, 2020 11:00pm take 1 tablet by mouth every twe nty-four hours Atorvastatin Afshin cium Active cholecalciferol 0.025 mg oral tablet (8 sources) Vitamin D Start: 04-16-2022 take 1 tablet by mouth once daily Cholecalciferol (Vitamin D3) (Vitamin D3) 25 mcg (1,000 unit) tablet Active 25 MCG PO Daily April 15, 2022 11:00pm furosemide 40 mg oral tablet (11 sources) Loop Diuretic Start: 04-18-2022 take 20 mg by mouth once daily Furosemide Active 20 MG PO Daily at 0800 April 17, 2022 11:00pm Start: 04-18-2022 take 20 mg by mouth once daily Furosemide Active 20 MG PO Daily at 0800 April 18, 2022 12:00am take 1 tablet by mariano every twenty-four hours Semwyevu-Dlveo-Geu 2-C-D3-Jane (Vbltfiec-Govyjb-Kvb With Vit D) 750-30-1,000-1 ba-fc-tosm-mg Tablet (8 sources) Start: 04-16-2022 take 1 tablet by mouth once daily Qgsufdun-Atsdc-Cnj 2-C-D3-Jane (Sxywuujk-Agvtkj-Xaj With Vit D) 750-30-1,000-1 sn-pj-asvz-mg Tablet Active 1 TAB PO Daily April 15, 2022 11:00pm Start: 04-16-2022 take 1 tablet by mariano once daily Ybjbhana-Rbrex-Ydl 2-C-D3-Jane (Rcikpzhf-Zumgqh-Pqo With Vit D) 750-30-1,000-1 vd-xu-gvlz-mg Tablet Active 1 TAB PO Daily April 16, 2022 12:00am Glucosamine (1 source) Glucosamine Acti ve ibuprofen 200 mg oral tablet (8 sources) Nonsteroidal Anti-inflammatory Drug Start: 2 take 800 mg by mouth twice daily Ibuprofen Active 800 MG PO Twice daily April 15, 2022 11:00pm lisinopril 2.5 mg oral tablet (20 sources) Angiotensin Converting Enzyme Inhibitor Start: 2 take 2.5 mg by mouth once daily Lisinopril Active 2.5 MG PO Daily April 17, 2022 11:00pm Start: 04-18-2022 take 2.5 mg by mouth once amy y Lisinopril Active 2.5 MG PO Daily April 18, 2022 12:00am Start: 06-19-2019 End: 04-18-2022 take 10 mg by mouth once daily Lisinopril Discontinued 10 MG PO Daily June 18, 2019 11:00pm April 18, 2022 8:47am take 1 tablet by mariano every twenty-four hours Lisinopril Activ e methylPREDNISolone 4 mg oral tablet (1 source) Corticosteroid Start: 01-29-2022 Medrol 4 MG as directed Orally as directed for 6 days January, Active metoprolol tartrate 25 mg oral tablet (11 sources) beta-Adrenergic Herber Start: 04-18-2022 take 25 mg by mouth twice daily Metoprolol Tartrate Active 25 MG PO Twice daily 60 April 17, 2022 11:00pm Start: 04-18-2022 take 25 mg by mouth twice amy y Metoprolol Tartrate Active 25 MG PO Twice daily 60 April 18, 2022 12:00am take 1 tablet by mariano once daily Metoprolol Succinate ER 25 MG Oral Tablet Extended Release 24 Hour TAKE 1 TABLET BY MOUTH EVERY DAY Quantity: 90 Refills: 3 Ordered: 04-Mar-2023 DO Active take 1 capsule by mo [facility] once daily Metoprolol Succinate 25 MG 1 capsule Orally Once a day Active 60 actuat olodaterol 0.0025 mg/actuat / tiotropium 0.0025 mg/actuat inhalation spray (1 source) Anticholinergic, beta2-Adrenergic Agonist Start: 03-22-2023 predniSONE 20 mg oral tablet (20 sources) Start: 12-16-2022 take 40 mg by mouth once daily at mealtime Prednisone Active 40 MG PO Daily December 15, 2022 11:00pm administer with food or milk Start: 01-14-2020 End: 07-21-2020 take 40 mg by mouth once daily Prednisone Discontinued 40 MG PO Daily 02 12June 27, 2020 11:00pm July 21, 2020 11:34am traMADol hydrochloride 50 mg oral tablet (5 sources) Opioid Agonist Start: 12-16-2022 take 50 mg by mouth every eight hours Tramadol Active 50 MG PO Q8H 10 December 15, 2022 11:00pm 24 hr venlafaxine 75 mg extended release oral capsule (20 sources) Serotonin and Norepinephrine Reuptake Inhibitor Start: 04-17-2022 take 75 mg by mouth once daily Venlafaxine Active 75 MG PO Daily April 16, 2022 11:00pm Start: 04-16-2022 End: 04-17-2022 take 1 tablet by mouth once daily Venlafaxine (Effexor) 75 mg Tablet Discontinued 75 MG PO Daily April 15, 2022 11:00pm April 17, 2022 8:09am Start: 06-19-2019 End: 01-14-2020 take 150 mg by mouth once daily Venlafaxine Discontinu ed 150 MG PO Daily June 18, 2019 11:00pm January 14, 2020 6:56pm Effexor Active Vitamin D (1 source) Vitamin D Active Completed/Discontinued Medications Medication Drug Class(es) Dates Sig (Normalized) Sig (Original) acetaminophen 325 mg / HYDROcodone bitartrate 5 mg oral tablet (8 sources) Opioid Agonist Start: 07-21-2020 End: 10-09-2020 take 1 tablet by mouth every six hours Hydrocodone-Acetam inophen ([place]) 5-325 mg tablet Discontinued 1 TAB PO Q6H 10 July 21, 2020 October 09, 2020 7:45pm azithromycin 250 mg oral tablet (8 sources) Macrolide Antimicrobial Start: 06-28-2020 End: 07-21-2020 take 500 mg by mouth once daily Azithromycin Discontinued 500 MG PO Daily 8 June 27, 2020 11:00pm July 21, 2020 11:34am diclofenac sodium 75 mg delayed release oral tablet (18 sources) Nonsteroidal Anti-inflammatory Drug Start: 04-16-2022 End: 04-16-2022 take 75 mg by mouth once daily Diclofenac Sodium Discontinued 75 MG PO Daily April 15, 2022 11:00pm April 16, 2022 9:46pm Start: 06-19-2019 End: 01-14-2020 take 75 mg by mouth once daily Diclofenac Sodium Disco ntinued 75 MG PO Daily June 18, 2019 11:00pm January 14, 2020 6:56pm doxycycline hyclate 100 mg oral tablet (8 sources) Tetracycline-class Drug Start: 01-14-2020 End: 06-27-2020 take 100 mg by mouth twice daily Doxycycline Hyclate Discontinued 100 MG PO Twice daily 14 January 13, 2020 11:00pm June 27, 2020 11:29am famotidine 20 mg oral tablet (1 source) Histamine-2 Receptor Antagonist take 1 tablet by mouth at bedtime Famotidine 20 MG Oral Tablet TAKE 1 TABLET AT BEDTIME. Quantity: 0 Refills: 0 Ordered: 04-Mar-2023 DO Active hydrocortisone 25 mg/ml topical cream (8 sources) Corticosteroid Start: 06-19-2019 End: 01-14-2020 Hydrocortisone Discontinued 1 APPLIC TOPICAL 2-3 TIMES PER DAY June 18, 2019 11:00pm January 14, 2020 6:55pm Problems Active Problems Problem Classification Problem Date Documented Date Episodic/Chronic Acute cerebrovascular disease (8 sources) Cerebrovascular accident; Translations: [Cerebral infarction, unspecified] 06-27-2020 Chronic Acute myocardial infarction (11 sources) Myocardial infarction; Translations: [Myocardial infarction type 2] 04-17-2022 Chronic Allergic reactions (8 sources) Inflammatory dermatosis; Translations: [Dermatitis, unspecified] 06-19-2019 Episodic Chronic kidney disease (3 sources) Chronic kidney disease stage 4; Translations: [Chronic kidney disease, stage 4 (severe)] Chronic Chronic obstructive pulmonary disease and bronchiectasis (20 sources) Chronic obstructive lung disease; Translations: [Chronic obstructive pulmonary disease, unspecified] Onset: 02-28-2023 04-17-2022 Chronic Congestive heart failure; nonhypertensive (17 sources) Diastolic heart failure; Translations: [Diastolic heart failure, unspecified] Onset: 02-28-2023 04-17-2022 Chronic Disorders of lipid metabolism (13 sources) Hyperlipidemia; Translations: [Hyperlipidemia, unspecified] 04-17-2022 Chronic Essential hypertension (18 sources) Hypertensive disorder; Translations: [Unspecified essential hypertension] Onset: 11-02-2023 04-17-2022 Chronic Fluid and electrolyte disorders (10 sources) Hyponatremia; Translations: [Hypo-osmolality and hyponatremia] 04-18-2022 Episodic Fracture of lower limb (8 sources) Fracture of foot ; Translations: [Unspecified fracture of unspecified foot, initial encounter for closed fracture] 07-21-2020 Episodic Gout and other crystal arthropathies (3 sources) 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; Translations: [Other secondary chronic gout, unspecified site, without tophus (tophi)] Chronic Malaise and fatigue (8 sources) Right hemiparesis; Translations: [Weakness] 06-27-2020 Episodic Osteoporosis (1 source) Age-related osteoporosis without current pathological fracture; Translations: [Age-related osteoporosis without current pathological fracture] Onset: 03-07-2023 Chronic Other and unspecified benign neoplasm (8 sources) Neoplasm of meninges; Translations: [Benign neoplasm of meninges, unspecified] 06-27-2020 Chronic Other circulatory disease (8 sources) Elevated blood pressure; Translations: [Elevated blood-pressure reading, without diagnosis of hypertension] 06-19-2019 Episodic Other circulatory disease (8 sources) History of cerebrovascular accident; Translations: [Personal history of transient ischemic attack (TIA), and cerebral infarction without residual deficits] 04-17-2022 Episodic Other circulatory disease (3 sources) Elevated blood-pressure reading, without diagnosis of hypertension; Translations: [Elevated blood pressure reading without diagnosis of hypertension] 04-18-2022 Episodic Other circulatory disease (3 sources) Personal history of transient ischemic attack (TIA), and cerebral infarction without residual deficits; Translations: [Personal history of transient ischemic attack (TIA), and cerebral infarction without residual deficits] 04-18-2022 Episodic Other connective tissue disease (8 sources) Swelling of lower limb; Translations: [Other specified soft tissue disorders] 04-16-2022 Episodic Other connective tissue disease (3 sources) Other specified soft tissue disorders; Translations: [Swelling of limb] 04-18-2022 Episodic Other hematologic conditions (8 sources) Raised cardiac enzyme or marker; Translations: [Other specified abnormalities of plasma proteins] 04-16-2022 Episodic Other hematologic conditions (3 sources) Other specified abnormalities of plasma proteins; Translations: [Other abnormal blood chemistry] 04-18-2022 Episodic Other lower respiratory disease (1 source) Dyspnea; Translations: [Other respiratory abnormalities] Episodic Other nervous system disorders (1 source) Other chronic pain Onset: 01-29-2022 Resolved: 01-29-2022 Chronic Other nervous system disorders (8 sources) Slurred speech; Translations: [Slurred speech] 10-09-2020 Episodic Other nervous system disorders (8 sources) Ataxia; Translations: [Ataxia, unspecified] 06-27-2020 Episodic Other non-traumatic joint disorders (5 sources) Hip pain; Translations: [Pain in right hip] 12-16-2022 Episodic Other nutritional; endocrine; and metabolic disorders (1 source) Body mass index less than 20; Translations: [Body Mass Index less than 19, adult] Episodic Pneumonia (except that caused by tuberculosis or sexually transmitted disease) (8 sources) Pneumonia; Translations: [Pneumonia, unspecified organism] 06-27-2020 Episodic Residual codes; unclassified (8 sources) Tobacco user; Translations: [Tobacco use] 04-17-2022 Episodic Residual codes; unclassified (8 sources) Peripheral edema; Translations: [Edema, unspecified] 04-16-2022 Episodic Residual codes; unclassified (3 sources) Edema, unspecified; Translations: [Edema] 04-18-2022 Episodic Residual codes; unclassified (4 sources) Tobacco use; Translations: [Tobacco use disorder] 04-18-2022 Episodic Residual codes; unclassified (1 source) [...] Translations: [Pain in right hip] Onset: 12-16-2022 Urinary tract infections (8 sources) Urinary tract infectious disease; Translations: [Urinary tract infection, site not specified] 01-14-2020 Episodic Past or Other Problems Problem Classification Problem Date Documented Da te Episodic/Chronic Other bone disease and musculoskeletal deformities (1 source) Other specified disorders of bone, unspecified site; Translations: [Other specified disorders of bone, unspecified site] Onset: 02-28-2023 Episodic Other connective tissue disease (1 source) Synovial cyst of popliteal space [Ness], left knee Onset: 01-29-2022 Resolved: 01-29-2022 Episodic Other non-traumatic joint disorders (3 sources) [...] left hand, initial encounter; Translations: [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] Onset: 01-17-2019 Episodic Results Test Name Value Interpretation Reference Range Facility Basic Metabolic Panelon 10-14 Anion gap [Moles/Vol] 13.6 mmol/L Normal 6.0-15.0 [facility] Comment on above: Performed By: #### C BC, BMP #### [facility] [address] Calcium [Mass/Vol] 8.8 mg/dL Normal 8.6-10.3 [facility] Comment on above: Result Comment: PERF ORMED BY: [facility] [address] [facility] [place] [address] PATHOLOGIST UROLOGY PHYSICIAN JOSEY BOUCHER M.D. Performed By: #### C BC, BMP #### [facility] [address] [place] [address] [place] Chloride [Moles/Vol] 97 mmol/L Low 98-107 [facility] Comment on above: Performed By: #### C BC, BMP #### [facility] [address] [place] [address] [place] CO2 [Moles/Vol] 20.0 mmol/L Low 21.0-31.0 [facility] Comment on above: Performed By: #### C BC, BMP #### [facility] [address] [place] [address] [place] Creatinine [Mass/Vol] 1.06 mg/dL Normal 0.60-1.20 [facility] Comment on above: Performed By: #### C BC, BMP #### [facility] [address] [place] [address] [place] GFR/1.73 sq M.predicted MDRD (S/P/Bld) [Vol rate/Area] 56.163 mL/min/{1.73_m2} Normal [facility] Comment on above: Performed By: #### C BC, BMP #### [facility] [address] Glucose [Mass/Vol] 82 mg/dL Normal 70-100 [facility] Comment on above: Result Comment: [place] Glucose Reference Range is dependent on time and content of last meal. Glucose of more than 200 mg/dL in a nonstressed, ambulatory subject supports the diagnosis of Diabetes Mellitus. ADA recommended reference range Performed By: #### C BC, BMP #### [facility] [address] [place] [address] [place] Potassium [Moles/Vol] 4.6 mmol/L Normal 3.5-5.1 [facility] Comment on above: Performed By: #### C BC, BMP #### [facility] [address] [place] [address] [place] Sodium [Moles/Vol] 126 mmol/L Low 136-145 [facility] Comment on above: Performed By: #### C BC, BMP #### [facility] [address] [place] [id number] [place] Urea nitrogen [Mass/Vol] 22 mg/dL Normal 7-25 [facility] Comment on above: Performed By: #### C BC, BMP #### [facility] [address] [place] [address] [place] Basophils Auto (Bld) [#/Vol] Ordered By: Enedelia Gordon on 11-06-2023 Basophils (Bld) [#/Vol] 0.1 10*3/uL 0.0-0.2 [facility] Basophils/100 WBC Auto (Bld) Ordered By: Enedelia Gordon on 11-06-2023 Basophils/100 WBC (Bld) 0.7 % . F [facility] Calcium [Mass/volume] in Ser um or PlasmaOrdered By: Enedelia Gordon on 11-06-2023 Calcium [Mass/Vol] 8.8 mg/dL 8.6-10.3 [facility] Carbon dioxide, total [Moles /volume] in Serum or PlasmaOrdered By: Enedelia Gordon on 11-06-2023 CO2 [Moles/Vol] 20.0 mmol/L 21.0-31.0 [facility] Chloride [Moles/volume] in S stefan or PlasmaOrdered By: Enedelia Gordon on 11-06-2023 Chloride [Moles/Vol] 97 mmol/L 98-107 [facility] Complete Blood Count Auto Di ffon 11-06-2023 Basophils (Bld) [#/Vol] 0.1 10*3/uL Normal 0.0-0.2 [facility] Comment on above: Result Comment: PERF ORMED BY: [place] [address] PATHOLOGIST UROLOGY PHYSICIAN JOSEY BOUCHER M.D. Performed By: #### C DENNY, BMP #### [facility] [address] [place] [address] [place] Basophils/100 WBC (Bld) 0.7 % Normal . [facility] Comment on above: Performed By: #### C BC, BMP #### [facility] [address] [place] [address] [place] Eosinophils (Bld) [#/Vol] 0.3 10*3/uL Normal 0.0-0.45 [facility] Comment on above: Performed By: #### C BC, BMP #### [facility] [address] [place] [address] [place] Eosinophils/100 WBC (Bld) 3.3 % Normal . [facility] Comment on above: Performed By: #### C BC, BMP #### [facility] [address] Erythrocyte distribution width (RBC) [Ratio] 14.0 % Normal 11.9-15.3 [facility] Comment on above: Performed By: #### C BC, BMP #### [facility] [address] Hematocrit (Bld) [Volume fraction] 34.4 % Normal 34.0-46.4 [facility] Comment on above: Performed By: #### C BC, BMP #### [facility] [address] Hemoglobin (Bld) [Mass/Vol] 11.8 g/dL Normal 11.8-15.4 [facility] Comment on above: Performed By: #### C BC, BMP #### [facility] [address] Lymphocytes (Bld) [#/Vol] 2.6 10*3/uL Normal 1.00-4.8 [facility] Comment on above: Performed By: #### C BC, BMP #### [address] Lymphocytes/100 WBC (Bld) 26.3 % Normal . [facility] Comment on above: Performed By: #### C BC, BMP #### [facility] [address] MCH (RBC) [Entitic mass] 30.9 pg Normal 24.7-34.3 [facility] Comment on above: Performed By: #### C BC, BMP #### [facility] [address] [place] [address] [place] MCV (RBC) [Entitic vol] 90.3 fL Normal 80-100 [facility] Comment on above: Performed By: #### C BC, BMP #### [facility] [address] Mean Corpuscular HGB Conc 34.2 g/dL Normal 32.0-35.0 [facility] Comment on above: Performed By: #### C BC, BMP #### [facility] [address] [place] [address] [place] Monocytes (Bld) [#/Vol] 0.6 10*3/uL Normal 0.0-0.8 [facility] Comment on above: Performed By: #### C BC, BMP #### [facility] [address] [place] [id number] [place] Monocytes/100 WBC (Bld) 18.33 % Normal 0.00-20.00 [facility] Comment on above: Performed By: #### C BC, BMP #### [facility] [address] [place] [address] [place] Monocytes/100 WBC (Bld) 5.9 % Normal . [facility] Comment on above: Performed By: #### C BC, BMP #### [facility] [address] Neutrophils (Bld) [#/Vol] 6.4 10*3/uL Normal 1.8-7.7 [facility] Comment on above: Performed By: #### C BC, BMP #### [facility] [address] [place] [address] [place] Neutrophils/100 WBC (Bld) 63.8 % Normal . [facility] Comment on above: Performed By: #### C BC, BMP #### [facility] [address] [place] [address] [place] NRBC% 0.0 /100{WBC} Normal 0-0.5 [facility] Comment on above: Performed By: #### C BC, BMP #### [facility] [address] [place] [address] [place] Platelet mean volume (Bld) [Entitic vol] 6.5 fL Normal 6.3-10.7 [facility] Comment on above: Performed By: #### C BC, BMP #### [facility] [facility] [address] [place] [address] [place] Platelets (Bld) [#/Vol] 354 10*3/uL Normal 150-450 [facility] Comment on above: Performed By: #### C BC, BMP #### [facility] [address] RBC (Bld) [#/Vol] 3.81 10*6/uL Normal 3.60-5.00 [facility] Comment on above: Performed By: #### C DENNY, BMP #### [facility] [address] WBC (Bld) [#/Vol] 10.0 10*3/uL Normal 3.8-11.6 [facility] Comment on above: Performed By: #### C DENNY, BMP #### [address] Creatinine [Mass/volume] in Serum or PlasmaOrdered By: Enedelia Gordon on 11-06-2023 Creatinine [Mass/Vol] 1.06 mg/dL 0.60-1.20 [facility] ECG 12 lead ECGon 11-06-2023 ECG 12 lead ECG [facility] [place] [address] [place] [address] Electrocardiograph Report Signed Patient: Corie Courtney MR#: [id number] : 1950 Acct:[id number] Age/Sex: 73 / F ADM Date: 11/06/23 Loc: ER Room: Type: [facility] ER Attending Dr: Ordering Provider: Enedelia Gordon APRN Date of Service: 11/06/23 ECG/ECG 12 lead ECG: Recheck/Abnormal Lab/Rx Copies to: Test Reason : Blood Pressure : 146/072 mmHG Vent. Rate : 085 BPM Atrial Rate : 085 BPM P-R Int : 168 ms QRS Dur : 068 ms QT Int : 342 ms P-R-T Axes : 066 069 064 degrees QTc Int : 406 ms Normal sinus rhythm Normal ECG When compared with ECG of 16-APR-2022 16:47, No significant change was found Confirmed by MARCO ANTONIO PATEL [facility] Edwards ([id number]) on 11/08/2023 3:41:23 PM Referred By: Electronically Signed By:WILBERT EAST MD FAC Transcribed By: MUS Signed By Wilbert East MD, FACC 02/27/24 1541 [facility] Eosinophils Auto (Bld) [#/Vo l]Ordered By: Enedelia Gordon on 11-06-2023 Eosinophils (Bld) [#/Vol] 0.3 10*3/uL 0.0-0.45 [facility] Eosinophils/100 WBC Auto (Bl d)Ordered By: Enedelia Gordon on 11-06-2023 Eosinophils/100 WBC (Bld) 3.3 % . [facility] Erythrocyte distribution wid th Auto (RBC) [Ratio]Ordered By: Enedelia Gordon on 11-06-2023 Erythrocyte distribution width (RBC) [Ratio] 14.0 % 11.9-15.3 [facility] Glucose [Mass/volume] in Ser um or PlasmaOrdered By: Enedelia Gordon on 11-06-2023 Glucose [Mass/Vol] 82 mg/dL 70-100 [facility] Comment on above: ADA recommended refe rence rangeRandom Glucose Reference Range is dependent on time and content of last meal. Glucose of more than 200 mg/dL in a nonstressed, ambulatory subject supports the diagnosis of Diabetes Mellitus. Hematocrit Auto (Bld) [Volum e fraction]Ordered By: Enedelia Gordon on 11-06-2023 Hematocrit (Bld) [Volume fraction] 34.4 % 34.0-46.4 [facility] Hemoglobin [Mass/volume] in BloodOrdered By: Enedelia Gordon on 11-06-2023 Hemoglobin (Bld) [Mass/Vol] 11.8 g/dL 11.8-15.4 [facility] Leukocytes [#/volume] correc candelario for nucleated erythrocytes in Blood by Automated counOrdered By: Enedelia Gordon on 11-06-2023 WBC corrected for nucl RBC Auto (Bld) [#/Vol] 10.0 10*3/uL 3.8-11.6 [facility] Lymphocytes Auto (Bld) [#/Vo l]Ordered By: Enedelia Gordon on 11-06-2023 Lymphocytes (Bld) [#/Vol] 2.6 10*3/uL 1.00-4.8 [facility] Lymphocytes/100 WBC Auto (Bl d)Ordered By: Enedelia Gordon on 11-06-2023 Lymphocytes/100 WBC (Bld) 26.3 % . [facility] MCH Auto (RBC) [Entitic mass ]Ordered By: Enedelia Gordon on 11-06-2023 MCH (RBC) [Entitic mass] 30.9 pg 24.7-34.3 [facility] MCHC Auto (RBC) [Mass/Vol]Or dered By: Enedelia Gordon on 11-06-2023 MCHC (RBC) [Mass/Vol] 34.2 g/dL 32.0-35.0 [facility] MCV Auto (RBC) [Entitic vol] Ordered By: Enedelia Gordon on 11-06-2023 MCV (RBC) [Entitic vol] 90.3 fL 80-100 [facility] Magnesiumon 11-06-2023 Magnesium [Mass/Vol] 1.9 mg/dL Normal 1.9-2.7 [facility] Comment on above: Result Comment: PERF ORMED BY: [place] [address] PATHOLOGIST UROLOGY PHYSICIAN JOSEY BOUCHER M.D. Performed By: #### M #### [address] Magnesium [Mass/volume] in S stefan or PlasmaOrdered By: Enedelia Gordon on 11-06-2023 Magnesium [Mass/Vol] 1.9 mg/dL 1.9-2.7 [facility] Monocyte distribution width [Entitic volume] in Blood by AutomatedOrdered By: Enedelia Gordon on 11-06-2023 Monocyte distribution width Auto (Bld) [Entitic vol] 18.33 % 0.00-20.00 [facility] Monocytes Auto (Bld) [#/Vol] Ordered By: Enedelia Gordon on 11-06-2023 Monocytes (Bld) [#/Vol] 0.6 10*3/uL 0.0-0.8 [facility] Monocytes/100 WBC Auto (Bld) Ordered By: Enedelia Gordon on 11-06-2023 Monocytes/100 WBC (Bld) 5.9 % . [facility] Neutrophils Auto (Bld) [#/Vo l]Ordered By: Enedelia Gordon on 11-06-2023 Neutrophils (Bld) [#/Vol] 6.4 10*3/uL 1.8-7.7 [facility] Neutrophils/100 WBC Auto (Bl d)Ordered By: Enedelia Gordon on 11-06-2023 Neutrophils/100 WBC (Bld) 63.8 % . [facility] No Panel InformationOrdered By: Enedelia Gordon on 11-06-2023 Estimated GFR (CKD-EPI) 56.163 mL/Min [facility] Creatinine Clearance (Chem N/A [facility] Nucleated erythrocytes [Pres ence] in Blood by Automated countOrdered By: Enedelia Gordon on 11-06-2023 Nucleated RBC Auto Ql (Bld) 0.0 /100{WBC} 0-0.5 [facility] Platelet mean volume Auto (B ld) [Entitic vol]Ordered By: Enedelia Gordon on 11-06-2023 Platelet mean volume (Bld) [Entitic vol] 6.5 fL 6.3-10.7 [facility] Platelets Auto (Bld) [#/Vol] Ordered By: Enedelia Gordon on 11-06-2023 Platelets (Bld) [#/Vol] 354 10*3/uL 150-450 [facility] Potassium [Moles/volume] in Serum or PlasmaOrdered By: Enedelia Gordon on 11-06-2023 Potassium [Moles/Vol] 4.6 mmol/L 3.5-5.1 [facility] RBC Auto (Bld) [#/Vol]Ordere d By: Enedelia Gordon on 11-06-2023 RBC (Bld) [#/Vol] 3.81 10*6/uL 3.60-5.00 [facility] Serum or plasma anion gap de terminationOrdered By: Enedelia Gordon on 11-06-2023 Anion gap [Moles/Vol] 13.6 mmol/L 6.0-15.0 [facility] Sodium [Moles/volume] in Ser um or PlasmaOrdered By: Enedelia Gordon on 11-06-2023 Sodium [Moles/Vol] 126 mmol/L 136-145 [facility] Troponin I High Sensitivityo n 11-06-2023 Troponin I High Sensitivity 5.6 pg/mL Normal 0.0-15.0 [facility] Comment on above: Result Comment: PERF ORMED BY: [facility] [address] [place] [id number] PATHOLOGIST UROLOGY PHYSICIAN JOSEY BOUCHER M.D. Performed By: #### H S TROP ####[facility] [place] [address] [facility] Troponin I.cardiac [Mass/vol ume] in Serum or Plasma by Detection limit <= 0.01 ng/Ordered By: Enedelia Gordon on 11-06-2023 Troponin I.cardiac DL <= 0.01 ng/mL [Mass/Vol] 5.6 pg/mL 0.0-15.0 [facility] Urea nitrogen [Mass/volume] in Serum or PlasmaOrdered By: Enedelia Gordon on 11-06-2023 Urea nitrogen [Mass/Vol] 22 mg/dL 04-05 [facility] WBC Auto (Bld) [#/Vol]Ordere d By: Enedelia Gordon on 11-06-2023 WBC (Bld) [#/Vol] 10.0 10*3/uL 3.8-11.6 [facility] Alanine aminotransferase [En zymatic activity/volume] in Serum or PlasmaOrdered By: Delfina Trevino on 11-02-2023 ALT [Catalytic activity/Vol] 19 U/L 7 [facility] Albumin [Mass/volume] in Ser um or Plasma by Bromocresol green (BCG) dye binding methoOrdered By: Delfina Trevino on 11-02-2023 Albumin BCG dye [Mass/Vol] 4.4 g/dL 3.5-5.7 [facility] Alkaline phosphatase [Enzyma tic activity/volume] in Serum or PlasmaOrdered By: Delfina Trevino on 11-02-2023 ALP [Catalytic activity/Vol] 100 U/L 34-104 [facility] Aspartate aminotransferase [ Enzymatic activity/volume] in Serum or PlasmaOrdered By: Delfina Trevino on 11-02-2023 AST [Catalytic activity/Vol] 18 U/L 13-39 [facility] Bilirubin.total [Mass/volume ] in Serum or PlasmaOrdered By: Delfina Trevino on 11-02-2023 Bilirubin [Mass/Vol] 0.5 mg/dL 0.3-1.0 [facility] Calcium [Mass/volume] in Ser um or PlasmaOrdered By: Delfina Trevino on 11-02-2023 Calcium [Mass/Vol] 9.3 mg/dL 8.6-10.3 [facility] Carbon dioxide, total [Moles /volume] in Serum or PlasmaOrdered By: Delfina Trevino on 11-02-2023 CO2 [Moles/Vol] 24.1 mmol/L 21.0-31.0 [facility] Chloride [Moles/volume] in S stefan or PlasmaOrdered By: Delfina Trevino on 11-02-2023 Chloride [Moles/Vol] 93 mmol/L 98-107 [facility] Cholesterol [Mass/volume] in Serum or PlasmaOrdered By: Delfina Trevino on 11-02-2023 Cholesterol [Mass/Vol] 170 mg/dL 140-200 [facility] Comment on above: Chol less than 200 m g/dl low riskChol 201-239 mg/dl borderline riskChol 240 mg/dl and greater high risk Cholesterol in LDL Calc [Mas s/Vol]Ordered By: Delfina Trevino on 11-02-2023 Cholesterol in LDL [Mass/Vol] 75 mg/dL 0-100 [facility] Comment on above: LDL ATP III CLASSIFI CATIONLDL less than 100 mg/dL OptimalLDL 100-129 mg/dL Near or above optimalLDL 130-159 mg/dL Borderline highLDL 160-189 mg/dL HighLDL greater than 189 mg/dL Very high Cholesterol in VLDL Calc [Ma ss/Vol]Ordered By: Delfina Trevino on 11-02-2023 Cholesterol in VLDL [Mass/Vol] 18 mg/dL [facility] Comprehensive Metabolic Pane dinora 11-02-2023 Albumin [Mass/Vol] 4.4 g/dL Normal 3.5-5.7 [facility] Comment on above: Order Comment: Reaso n for Exam Essential (primary) hypertension Performed By: #### L IPID, CMP #### [facility] [address] Albumin/Globulin [Mass ratio] 1.9 {ratio} Normal [facility] Comment on above: Order Comment: Reaso n for Exam Essential (primary) hypertension Performed By: #### L IPID, CMP #### [facility] [address] ALP [Catalytic activity/Vol] 100 U/L Normal 34-104 [facility] Comment on above: Order Comment: Reaso n for Exam Essential (primary) hypertension Performed By: #### L IPID, CMP #### [address] ALT [Catalytic activity/Vol] 19 U/L Normal 7-52 [facility] Comment on above: Order Comment: Reaso n for Exam Essential (primary) hypertension Performed By: #### L IPID, CMP #### [facility] [address] [place], [place] [id number] [facility] Anion gap [Moles/Vol] 11.2 mmol/L Normal 6.0-15.0 [facility] Comment on above: Order Comment: Reaso n for Exam Essential (primary) hypertension Performed By: #### L IPID, CMP #### [facility] [address] [place] [address] [place] AST [Catalytic activity/Vol] 18 U/L Normal 13-39 [facility] Comment on above: Order Comment: Reaso n for Exam Essential (primary) hypertension Performed By: #### L IPID, CMP #### [facility] [address] [place] [address] [place] Bilirubin [Mass/Vol] 0.5 mg/dL Normal 0.3-1.0 [facility] Comment on above: Order Comment: Reaso n for Exam Essential (primary) hypertension Performed By: #### L IPID, CMP #### [facility] [address] [place], [place] [id number] [place] Calcium [Mass/Vol] 9.3 mg/dL Normal 8.6-10.3 [facility] Comment on above: Order Comment: Reaso n for Exam Essential (primary) hypertension Performed By: #### L IPID, CMP #### [facility] [address] [place] [address] [place] Chloride [Moles/Vol] 93 mmol/L Low 98-107 [facility] Comment on above: Order Comment: Reaso n for Exam Essential (primary) hypertension Performed By: #### L IPID, CMP #### [facility] [address] CO2 [Moles/Vol] 24.1 mmol/L Normal 21.0-31.0 [facility] Comment on above: Order Comment: Reaso n for Exam Essential (primary) hypertension Performed By: #### L IPID, CMP #### [facility] [address] Creatinine [Mass/Vol] 1.30 mg/dL High 0.60-1.20 [facility] Comment on above: Order Comment: Reaso n for Exam Essential (primary) hypertension Performed By: #### L IPID, CMP #### [facility] [address] [place] [id number] [place] GFR/1.73 sq M.predicted MDRD (S/P/Bld) [Vol rate/Area] 43.963 mL/min/{1.73_m2} Normal [facility] Comment on above: Order Comment: Reaso n for Exam Essential (primary) hypertension Performed By: #### L IPID, CMP #### [facility] [address] [place] [id number] [place] Globulin (S) [Mass/Vol] 2.3 g/dL Normal [facility] Comment on above: Order Comment: Reaso n for Exam Essential (primary) hypertension Performed By: #### L IPID, CMP #### [facility] [address] [place] [id number] [place] Glucose [Mass/Vol] 90 mg/dL Normal 70-100 [facility] Comment on above: Order Comment: Reaso n for Exam Essential (primary) hypertension Result Comment: [place] Glucose Reference Range is dependent on time and content of last meal. Glucose of more than 200 mg/dL in a nonstressed, ambulatory subject supports the diagnosis of Diabetes Mellitus. ADA recommended reference range Performed By: #### L IPID, CMP #### [facility] [address] Potassium [Moles/Vol] 5.3 mmol/L High 3.5-5.1 [facility] Comment on above: Order Comment: Reaso n for Exam Essential (primary) hypertension Performed By: #### L IPID, CMP #### [facility] [address] [place] [address] [place] Protein [Mass/Vol] 6.7 g/dL Normal 6.4-8.9 [facility] Comment on above: Order Comment: Reaso n for Exam Essential (primary) hypertension Performed By: #### L IPID, CMP #### [facility] [address] [place] [address] [place] Sodium [Moles/Vol] 123 mmol/L Off scale low 136-145 [facility] Comment on above: Order Comment: Reaso n for Exam Essential (primary) hypertension Result Comment: Crit ical Result Called to and read back by: AGUSTINA FANG at: 11/02/2023 20:51:14 by:[id number] Performed By: #### L IPID, CMP #### [facility] [address] [place] [address] [place] Urea nitrogen [Mass/Vol] 26 mg/dL High 7-25 [facility] Comment on above: Order Comment: Reaso n for Exam Essential (primary) hypertension Performed By: #### L IPID, CMP #### [facility] [address] [place] [address] [place] Creatinine [Mass/volume] in Serum or PlasmaOrdered By: Delfina Trevino on 11-02-2023 Creatinine [Mass/Vol] 1.30 mg/dL 0.60-1.20 [facility] Globulin Calc (S) [Mass/Vol] Ordered By: Delfina Trevino on 11-02-2023 Globulin (S) [Mass/Vol] 2.3 g/dL F [facility] Glucose [Mass/volume] in Ser um or PlasmaOrdered By: Delfina Trevino on 11-02-2023 Glucose [Mass/Vol] 90 mg/dL 70-100 [facility] Comment on above: ADA recommended refe rence rangeRandom Glucose Reference Range is dependent on time and content of last meal. Glucose of more than 200 mg/dL in a nonstressed, ambulatory subject supports the diagnosis of Diabetes Mellitus. Lipid Panelon 11-02-2023 Cholesterol [Mass/Vol] 170 mg/dL Normal 140-200 [facility] Comment on above: Order Comment: Reaso n for Exam Essential (primary) hypertension Result Comment: Chol less than 200 mg/dl low risk Chol 201-239 mg/dl borderline risk Chol 240 mg/dl and greater high risk Performed By: #### L IPID, CMP #### [facility] [address] [place] [address] [place] Cholesterol in HDL [Mass/Vol] 76 mg/dL Normal 23-92 [facility] Comment on above: Order Comment: Reaso n for Exam Essential (primary) hypertension Result Comment: HDL CHOL ATP-III CLASSIFICATION Cardiovascular Risk HDL > or equal to 60 mg/dL LOW HDL < 40 mg/dL HIGH Performed By: #### L IPID, CMP #### [facility] [address] Cholesterol.total/Lisa sterol in HDL [Mass ratio] 2.2 {ratio} Normal <5.0 [facility] Comment on above: Order Comment: Reaso n for Exam Essential (primary) hypertension Result Comment: PERF ORMED BY: [facility] [address] [place] [address] PATHOLOGIST UROLOGY PHYSICIAN JOSEY BOUCHER M.D. Performed By: #### L IPID, CMP #### [facility] [address] [place] [id number] [place] LDL Cholesterol,Calculated 75 mg/dL Normal 0-100 [facility] Comment on above: Order Comment: Reaso n for Exam Essential (primary) hypertension Result Comment: LDL ATP III CLASSIFICATION LDL less than 100 mg/dL Optimal LDL 100-129 mg/dL Near or above optimal LDL 130-159 mg/dL Borderline high LDL 160-189 mg/dL High LDL greater than 189 mg/dL Very high Performed By: #### L IPID, CMP #### [facility] [address] [place] [address] [place] Triglyceride w/Reflex 94 mg/dL Normal 0-149 [facility] Comment on above: Order Comment: Reaso n for Exam Essential (primary) hypertension Result Comment: TRIG ATP III CLASSIFICATION TRIG less than 150 mg/dL Normal TRIG 150-199 mg/dL Borderline high TRIG 200-500 mg/dL High TRIG greater than 500 mg/dL Very high Standard traceable to the Center for Disease Conrtrol and Prevention (CDC) test method. Performed By: #### L IPID, CMP #### [facility] [address] VLDL CHOLESTEROL 18 mg/dL Normal [facility] Comment on above: Order Comment: Reaso n for Exam Essential (primary) hypertension Performed By: #### L IPID, CMP #### [facility] [address] No Panel InformationOrdered By: Delfina Trevino on 11-02-2023 Estimated GFR (CKD-EPI) 43.963 mL/Min [facility] Creatinine Clearance (Chem N/A [facility] Potassium [Moles/volume] in Serum or PlasmaOrdered By: Delfina Trevino on 11-02-2023 Potassium [Moles/Vol] 5.3 mmol/L 3.5-5.1 [facility] Protein [Mass/volume] in Ser um or PlasmaOrdered By: Delfina Trevino on 11-02-2023 Protein [Mass/Vol] 6.7 g/dL 6.4-8.9 [facility] Serum or plasma albumin/glob ulin mass ratioOrdered By: Delfina Trevino on 11-02-2023 Albumin/Globulin [Mass ratio] 1.9 {ratio} [facility] Serum or plasma anion gap de terminationOrdered By: Delfina Trevino on 11-02-2023 Anion gap [Moles/Vol] 11.2 mmol/L 6.0-15.0 [facility] Serum or plasma high density lipoprotein (HDL) cholesterol measurementOrdered By: Delfina Trevino on 11-02-2023 Cholesterol in HDL [Mass/Vol] 76 mg/dL 23- [facility] Comment on above: HDL CHOL ATP-III CLA SSIFICATION Cardiovascular RiskHDL > or equal to 60 mg/dL LOWHDL < 40 mg/dL HIGH Serum or plasma total choles terol/high density lipoprotein (HDL) cholesterol mass ratOrdered By: Delfina Trevino on 11-02-2023 Cholesterol.total/Lisa sterol in HDL [Mass ratio] 2.2 {ratio} <5.0 [facility] Sodium [Moles/volume] in Ser um or PlasmaOrdered By: Delfina Trevino on 11-02-2023 Sodium [Moles/Vol] 123 mmol/L 136-145 [facility] Comment on above: Critical Result Call ed to and read back by: AGUSTINA FANG at: 11/02/2023 20:51:14 by:[id number] Triglyceride [Mass/volume] i n Serum or PlasmaOrdered By: Delfina Trevino on 11-02-2023 Triglyceride [Mass/Vol] 94 mg/dL 0-149 [facility] Comment on above: TRIG ATP III CLASSIF ICATIONTRIG less than 150 mg/dL NormalTRIG 150-199 mg/dL Borderline highTRIG 200-500 mg/dL High TRIG greater than 500 mg/dL Very highStandard traceable to the Center for Disease Conrtrol and Prevention (CDC) test method. Urea nitrogen [Mass/volume] in Serum or PlasmaOrdered By: Delfina Trevino on 11-02-2023 Urea nitrogen [Mass/Vol] 26 mg/dL 7- [facility] Office Visit (Cardiology)on 03-04-2023 Follow-up visit Diagnoses/Problems [...] we can help. You may also call 8-036-VHZTNOW for free resources and assistance.; Status:Complete - Retrospective Authorization; Done: 04Mar2023 Tobacco Use Screening; Status:Complete; Done: 04Mar2023 Patient Instructions Please bring all medicines, vitamins, [...] of coffee (more content not included)... Normal [facility] Tobacco Screening.on 023 Adult depression screening assessment No MP-Cardiolo gy- Karolina 250 DO Work Phone: Fall risk assessment a) No falls within the last year MP-Cardiology- Roane 250 DO Work Phone: Tobacco use status [facility]PH[facility] a) Yes M P-Cardiology- [place]ane 250 DO Work Phone: Tobacco Screening. Yes MP-Car diology- [place] 250 DO Work Phone: Alanine aminotransferase [En zymatic activity/volume] in Serum or PlasmaOrdered By: Delfina Trevino on 02-28-2023 ALT [Catalytic activity/Vol] 12 U/L 7-52 [facility] Albumin [Mass/volume] in Ser um or Plasma by Bromocresol green (BCG) dye binding methoOrdered By: Delfina Trevino on 02-28-2023 Albumin BCG dye [Mass/Vol] 4.2 g/dL 3.5-5.7 [facility] Alkaline phosphatase [Enzyma tic activity/volume] in Serum or PlasmaOrdered By: Delfina Trevino on 02-28-2023 ALP [Catalytic activity/Vol] 142 U/L 34-104 [facility] Aspartate aminotransferase [ Enzymatic activity/volume] in Serum or PlasmaOrdered By: Delfina Trevino on 02-28-2023 AST [Catalytic activity/Vol] 15 U/L 13-39 [facility] Basophils Auto (Bld) [#/Vol] Ordered By: Delfina Trevino on 02-28-2023 Basophils (Bld) [#/Vol] 0.1 10*3/uL 0.0-0.2 [facility] Basophils/100 WBC Auto (Bld) Ordered By: Delfina Trevino on 02-28-2023 Basophils/100 WBC (Bld) 0.9 % . F [facility] Bilirubin.total [Mass/volume ] in Serum or PlasmaOrdered By: Delfina Trevino on 02-28-2023 Bilirubin [Mass/Vol] 0.4 mg/dL 0.3-1.0 [facility] Calcium [Mass/volume] in Ser um or PlasmaOrdered By: Delfina Trevino on 02-28-2023 Calcium [Mass/Vol] 10.5 mg/dL 8.6-10.3 [facility] Carbon dioxide, total [Moles /volume] in Serum or PlasmaOrdered By: Delfina Trevino on 02-28-2023 CO2 [Moles/Vol] 23.8 mmol/L 21.0-31.0 [facility] Chloride [Moles/volume] in S stefan or PlasmaOrdered By: Delfina Trevino on 02-28-2023 Chloride [Moles/Vol] 98 mmol/L 98-107 [facility] Complete Blood Count Auto Di ffon 02-28-2023 Basophils (Bld) [#/Vol] 0.1 10*3/uL Normal 0.0-0.2 [facility] Comment on above: Order Comment: Reaso n for Exam Chronic diastolic congestive heart failure Result Comment: PERF ORMED BY: [facility] [address] [facility] [place] [address] PATHOLOGIST UROLOGY PHYSICIAN JOSEY BOUCHER M.D. Performed By: #### C BC, CMP, [id number] ####[place] [id number] [place] [address] [facility] Basophils/100 WBC (Bld) 0.9 % Normal . [facility] Comment on above: Order Comment: Reaso n for Exam Chronic diastolic congestive heart failure Performed By: #### C BC, CMP, [id number] ####[facility] [place] [address] [place] Eosinophils (Bld) [#/Vol] 0.6 10*3/uL High 0.0-0.45 [facility] Comment on above: Order Comment: Reaso n for Exam Chronic diastolic congestive heart failure Performed By: #### C BC, CMP, [id number] ####[facility] [place] [address] [place] Eosinophils/100 WBC (Bld) 5.5 % Normal . [facility] Comment on above: Order Comment: Reaso n for Exam Chronic diastolic congestive heart failure Performed By: #### C BC, CMP, [id number] ####[place] [id number] [facility] Erythrocyte distribution width (RBC) [Ratio] 18.1 % High 11.9-15.3 [facility] Comment on above: Order Comment: Reaso n for Exam Chronic diastolic congestive heart failure Performed By: #### C BC, CMP, [id number] ####[place] [id number] [facility] Hematocrit (Bld) [Volume fraction] 33.6 % Low 34.0-46.4 [facility] Comment on above: Order Comment: Reaso n for Exam Chronic diastolic congestive heart failure Performed By: #### C BC, CMP, [id number] ####[place] [id number] [facility] Hemoglobin (Bld) [Mass/Vol] 11.4 g/dL Low 11.8-15.4 [facility] Comment on above: Order Comment: Reaso n for Exam Chronic diastolic congestive heart failure Performed By: #### C BC, CMP, [id number] ####[place] [id number] [facility] Lymphocytes (Bld) [#/Vol] 2.2 10*3/uL Normal 1.00-4.8 [facility] Comment on above: Order Comment: Reaso n for Exam Chronic diastolic congestive heart failure Performed By: #### C BC, CMP, [id number] ####[place] [id number] [facility] Lymphocytes/100 WBC (Bld) 21.4 % Normal . [facility] Comment on above: Order Comment: Reaso n for Exam Chronic diastolic congestive heart failure Performed By: #### C BC, CMP, [id number] ####[place] [id number] [facility] MCH (RBC) [Entitic mass] 28.4 pg Normal 24.7-34.3 [facility] Comment on above: Order Comment: Reaso n for Exam Chronic diastolic congestive heart failure Performed By: #### C BC, CMP, [id number] ####[address] MCV (RBC) [Entitic vol] 83.5 fL Normal 80-100 F [facility] Comment on above: Order Comment: Reaso n for Exam Chronic diastolic congestive heart failure Performed By: #### C BC, CMP, [id number] ####[address] Mean Corpuscular HGB Conc 34.1 g/dL Normal 32.0-35.0 [facility] Comment on above: Order Comment: Reaso n for Exam Chronic diastolic congestive heart failure Performed By: #### C BC, CMP, [id number] ####[address] Monocytes (Bld) [#/Vol] 0.7 10*3/uL Normal 0.0-0.8 [facility] Comment on above: Order Comment: Reaso n for Exam Chronic diastolic congestive heart failure Performed By: #### C BC, CMP, [id number] ####[address] Monocytes/100 WBC (Bld) 6.8 % Normal . [facility] Comment on above: Order Comment: Reaso n for Exam Chronic diastolic congestive heart failure Performed By: #### C BC, CMP, [id number] ####[place] [id number] [facility] Neutrophils (Bld) [#/Vol] 6.9 10*3/uL Normal 1.8-7.7 [facility] Comment on above: Order Comment: Reaso n for Exam Chronic diastolic congestive heart failure Performed By: #### C BC, CMP, [id number] ####[place] [id number] [facility] Neutrophils/100 WBC (Bld) 65.4 % Normal . [facility] Comment on above: Order Comment: Reaso n for Exam Chronic diastolic congestive heart failure Performed By: #### C BC, CMP, [id number] ####[place] [address] [place] [address] [facility] NRBC% 0.1 /100{WBC} Normal 0-0.5 [facility] Comment on above: Order Comment: Reaso n for Exam Chronic diastolic congestive heart failure Performed By: #### C BC, CMP, [id number] ####[address] [address] [facility] Platelet mean volume (Bld) [Entitic vol] 7.0 fL Normal 6.3-10.7 [facility] Comment on above: Order Comment: Reaso n for Exam Chronic diastolic congestive heart failure Performed By: #### C BC, CMP, [id number] ####[place] [id number] [facility] Platelets (Bld) [#/Vol] 536 10*3/uL High 150-450 [facility] Comment on above: Order Comment: Reaso n for Exam Chronic diastolic congestive heart failure Performed By: #### C BC, CMP, [id number] ####[address] [address] [facility] RBC (Bld) [#/Vol] 4.02 10*6/uL Normal 3.60-5.00 [facility] Comment on above: Order Comment: Reaso n for Exam Chronic diastolic congestive heart failure Performed By: #### C BC, CMP, [id number] ####[address] [address] [facility] WBC (Bld) [#/Vol] 10.5 10*3/uL Normal 3.8-11.6 [facility] Comment on above: Order Comment: Reaso n for Exam Chronic diastolic congestive heart failure Performed By: #### C BC, CMP, [id number] ####[address] [address] [facility] Comprehensive Metabolic Pane dinora 02-28-2023 Albumin [Mass/Vol] 4.2 g/dL Normal 3.5-5.7 [facility] Comment on above: Order Comment: Reaso n for Exam Chronic diastolic congestive heart failure Reason for Exam Bone pain Performed By: #### C BC, CMP, [id number] ####[place] [address] [place] [address] [facility] Albumin/Globulin [Mass ratio] 1.2 {ratio} Normal [facility] Comment on above: Order Comment: Reaso n for Exam Chronic diastolic congestive heart failure Reason for Exam Bone pain Performed By: #### C BC, CMP, [id number] ####[place] [address] [place] [address] [facility] ALP [Catalytic activity/Vol] 142 U/L High 34-104 [facility] Comment on above: Order Comment: Reaso n for Exam Chronic diastolic congestive heart failure Reason for Exam Bone pain Performed By: #### C BC, CMP, [id number] ####[address] [address] [facility] ALT [Catalytic activity/Vol] 12 U/L Normal 7-52 [facility] Comment on above: Order Comment: Reaso n for Exam Chronic diastolic congestive heart failure Reason for Exam Bone pain Performed By: #### C BC, CMP, [id number] ####[place] [address] [place] [address] [facility] Anion gap [Moles/Vol] 13.2 mmol/L Normal 6.0-15.0 [facility] Comment on above: Order Comment: Reaso n for Exam Chronic diastolic congestive heart failure Reason for Exam Bone pain Performed By: #### C BC, CMP, [id number] ####[facility] [place] [address] [facility] AST [Catalytic activity/Vol] 15 U/L Normal 13-39 [facility] Comment on above: Order Comment: Reaso n for Exam Chronic diastolic congestive heart failure Reason for Exam Bone pain Performed By: #### C BC, CMP, [id number] ####[place] [address] [place] [address] [facility] Bilirubin [Mass/Vol] 0.4 mg/dL Normal 0.3-1.0 [facility] Comment on above: Order Comment: Reaso n for Exam Chronic diastolic congestive heart failure Reason for Exam Bone pain Performed By: #### C BC, CMP, [id number] ####[place] [address] [place] [address] [facility] Calcium [Mass/Vol] 10.5 mg/dL High 8.6-10.3 [facility] Comment on above: Order Comment: Reaso n for Exam Chronic diastolic congestive heart failure Reason for Exam Bone pain Performed By: #### C BC, CMP, [id number] ####[address] [address] [facility] Chloride [Moles/Vol] 98 mmol/L Normal 98-107 [facility] Comment on above: Order Comment: Reaso n for Exam Chronic diastolic congestive heart failure Reason for Exam Bone pain Performed By: #### C BC, CMP, [id number] ####[address] [address] [facility] CO2 [Moles/Vol] 23.8 mmol/L Normal 21.0-31.0 [facility] Comment on above: Order Comment: Reaso n for Exam Chronic diastolic congestive heart failure Reason for Exam Bone pain Performed By: #### C BC, CMP, [id number] ####[address] [address] [facility] Creatinine [Mass/Vol] 1.43 mg/dL High 0.60-1.20 [facility] Comment on above: Order Comment: Reaso n for Exam Chronic diastolic congestive heart failure Reason for Exam Bone pain Performed By: #### C BC, CMP, [id number] ####[place] [id number] [facility] GFR/1.73 sq M.predicted MDRD (S/P/Bld) [Vol rate/Area] 39.456 mL/min/{1.73_m2} [facility] Comment on above: Order Comment: Reaso n for Exam Chronic diastolic congestive heart failure Reason for Exam Bone pain Performed By: #### C BC, CMP, [id number] ####[place] [id number] [facility] Globulin (S) [Mass/Vol] 3.6 g/dL Normal [facility] Comment on above: Order Comment: Reaso n for Exam Chronic diastolic congestive heart failure Reason for Exam Bone pain Performed By: #### C BC, CMP, [id number] ####[facility] [place] [address] [facility] Glucose [Mass/Vol] 100 mg/dL Normal 70-100 [facility] Comment on above: Order Comment: Reaso n for Exam Chronic diastolic congestive heart failure Reason for Exam Bone pain Result Comment: [facility] Glucose Reference Range is dependent on time and content of last meal. Glucose of more than 200 mg/dL in a nonstressed, ambulatory subject supports the diagnosis of Diabetes Mellitus. ADA recommended reference range Performed By: #### C BC, CMP, [id number] ####[place] [address] [place] [address] [facility] Potassium [Moles/Vol] 4.0 mmol/L Normal 3.5-5.1 [facility] Comment on above: Order Comment: Reaso n for Exam Chronic diastolic congestive heart failure Reason for Exam Bone pain Performed By: #### C BC, CMP, [id number] ####[place] [address] [place] [address] [facility] Protein [Mass/Vol] 7.8 g/dL Normal 6.4-8.9 [facility] Comment on above: Order Comment: Reaso n for Exam Chronic diastolic congestive heart failure Reason for Exam Bone pain Performed By: #### C BC, CMP, [id number] ####[place] [address] [place] [address] [facility] Sodium [Moles/Vol] 131 mmol/L Low 136-145 [facility] Comment on above: Order Comment: Reaso n for Exam Chronic diastolic congestive heart failure Reason for Exam Bone pain Performed By: #### C BC, CMP, [id number] ####[place] [address] [place] [address] [facility] Urea nitrogen [Mass/Vol] 27 mg/dL High 7-25 [facility] Comment on above: Order Comment: Reaso n for Exam Chronic diastolic congestive heart failure Reason for Exam Bone pain Performed By: #### C BC, CMP, [id number] ####[facility] [id number] [place] [id number] [facility] Creatinine [Mass/volume] in Serum or PlasmaOrdered By: Delfina Trevino on 02-28-2023 Creatinine [Mass/Vol] 1.43 mg/dL 0.60-1.20 [facility] Eosinophils Auto (Bld) [#/Vo l]Ordered By: Delfina Trevino on 02-28-2023 Eosinophils (Bld) [#/Vol] 0.6 10*3/uL 0.0-0.45 [facility] Eosinophils/100 WBC Auto (Bl d)Ordered By: Delfina Trevino on 02-28-2023 Eosinophils/100 WBC (Bld) 5.5 % . [facility] Erythrocyte distribution wid th Auto (RBC) [Ratio]Ordered By: Delfina Trevino on 02-28-2023 Erythrocyte distribution width (RBC) [Ratio] 18.1 % 11.9-15.3 [facility] Globulin Calc (S) [Mass/Vol] Ordered By: Delfina Trevino on 02-28-2023 Globulin (S) [Mass/Vol] 3.6 g/dL [facility] Glucose [Mass/volume] in Ser um or PlasmaOrdered By: Delfina Trevino on 02-28-2023 Glucose [Mass/Vol] 100 mg/dL 70-100 [facility] Comment on above: ADA recommended refe rence rangeRandom Glucose Reference Range is dependent on time and content of last meal. Glucose of more than 200 mg/dL in a nonstressed, ambulatory subject supports the diagnosis of Diabetes Mellitus. Hematocrit Auto (Bld) [Volum e fraction]Ordered By: Delfina Trevino on 02-28-2023 Hematocrit (Bld) [Volume fraction] 33.6 % 34.0-46.4 [facility] Hemoglobin [Mass/volume] in BloodOrdered By: Delfina Trevino on 02-28-2023 Hemoglobin (Bld) [Mass/Vol] 11.4 g/dL 11.8-15.4 [facility] Leukocytes [#/volume] correc candelario for nucleated erythrocytes in Blood by Automated counOrdered By: Delfina Trevino on 02-28-2023 WBC corrected for nucl RBC Auto (Bld) [#/Vol] 10.5 10*3/uL 3.8-11.6 [facility] Lymphocytes Auto (Bld) [#/Vo l]Ordered By: Delfina Trevino on 02-28-2023 Lymphocytes (Bld) [#/Vol] 2.2 10*3/uL 1.00-4.8 [facility] Lymphocytes/100 WBC Auto (Bl d)Ordered By: Delfina Trevino on 02-28-2023 Lymphocytes/100 WBC (Bld) 21.4 % . [facility] MCH Auto (RBC) [Entitic mass ]Ordered By: Delfina Trevino on 02-28-2023 MCH (RBC) [Entitic mass] 28.4 pg 24.7-34.3 [facility] MCHC Auto (RBC) [Mass/Vol]Or dered By: Delfina Trevino on 02-28-2023 MCHC (RBC) [Mass/Vol] 34.1 g/dL 32.0-35.0 [facility] MCV Auto (RBC) [Entitic vol] Ordered By: Delfina Trevino on 02-28-2023 MCV (RBC) [Entitic vol] 83.5 fL 80-100 F [facility] Monocytes Auto (Bld) [#/Vol] Ordered By: Delfina Trevino on 02-28-2023 Monocytes (Bld) [#/Vol] 0.7 10*3/uL 0.0-0.8 [facility] Monocytes/100 WBC Auto (Bld) Ordered By: Delfina Trevino on 02-28-2023 Monocytes/100 WBC (Bld) 6.8 % . [facility] NM jony perf SPECT rest stron 02-28-2023 NM jony perf SPECT rest str [facility] [place] [address] Nuclear Medicine Report Signed Patient: Corie Courtney MR#: [id number] : 1950 Acct:[id number] Age/Sex: 72 / F ADM Date: 02/28/23 Loc: NM Room: Type: [facility] Attending Dr: CURTIS Olson APRN Copies to: Delfina Trevino APRN,NAUN Connell MD Ordering Provider: Delfina Trevino APRN, [...] previous study available for comparison. Transcribed By: BARRERA 02/28/232003 Dictated By: Jaquelin Connell MD 02/28/23 1700 Signed By: 03/02/23 1539 Normal [facility] Neutrophils Auto (Bld) [#/Vo l]Ordered By: Delfina Trevino on 02-28-2023 Neutrophils (Bld) [#/Vol] 6.9 10*3/uL 1.8-7.7 [facility] Neutrophils/100 WBC Auto (Bl d)Ordered By: Delfina Trevino on 02-28-2023 Neutrophils/100 WBC (Bld) 65.4 % . [facility] No Panel InformationOrdered By: Delfina Trevino on 02-28-2023 Estimated GFR (CKD-EPI) 39.456 mL/Min [facility] Creatinine Clearance (Chem N/A [facility] Nucleated erythrocytes [Pres ence] in Blood by Automated countOrdered By: Delfina Trevino on 06-19-2023 Nucleated RBC Auto Ql (Bld) 0.1 /100{WBC} 0-0.5 [facility] Platelet mean volume Auto (B ld) [Entitic vol]Ordered By: Delfina Trevino on 02-28-2023 Platelet mean volume (Bld) [Entitic vol] 7.0 fL 6.3-10.7 [facility] Platelets Auto (Bld) [#/Vol] Ordered By: Delfina Trevino on 02-28-2023 Platelets (Bld) [#/Vol] 536 10*3/uL 150-450 [facility] Potassium [Moles/volume] in Serum or PlasmaOrdered By: Delfina Trevino on 02-28-2023 Potassium [Moles/Vol] 4.0 mmol/L 3.5-5.1 [facility] Protein [Mass/volume] in Ser um or PlasmaOrdered By: Delfina Trevino on 02-28-2023 Protein [Mass/Vol] 7.8 g/dL 6.4-8.9 [facility] RBC Auto (Bld) [#/Vol]Ordere d By: Delfina Trevino on 02-28-2023 RBC (Bld) [#/Vol] 4.02 10*6/uL 3.60-5.00 [facility] STR cardiac stress/lexiscano n 02-28-2023 STR cardiac stress/lexiscan [facility] [place] [address] Cardiac Stress Test Signed Patient: Corie Courtney MR#: [id number] : 1950 Acct:[id number] Age/Sex: 72 / F ADM Date: 02/28/23 Loc: MD Room: Type: [facility] Attending Dr: Delfina Trevino APRN, TEST MAN-C Copies to: Delfina Trevino APRN, CNP Mourhaf A Traboulssi, MD Ordering Provider: Delfina Trevino APRN, CNP Date of Service: 02/28/23 STR/STR cardiac stress/lexiscan: Chronic diastolic congestive heart failure REFERRING PHYSICIAN: Delfina Trevino APRN, TEST MAN-C REASON FOR STUDY: Heart failure and surgical [...] MD 02/28/23 1041 Signed By: 02/28/23 1546 [facility] Serum or plasma albumin/glob ulin mass ratioOrdered By: Delfina Trevino on 02-28-2023 Albumin/Globulin [Mass ratio] 1.2 {ratio} [facility] Serum or plasma anion gap de terminationOrdered By: Delfina Trevino on 02-28-2023 Anion gap [Moles/Vol] 13.2 mmol/L 6.0-15.0 [facility] Sodium [Moles/volume] in Ser um or PlasmaOrdered By: Delfina Trevino on 02-28-2023 Sodium [Moles/Vol] 131 mmol/L 136-145 [facility] Urea nitrogen [Mass/volume] in Serum or PlasmaOrdered By: Delfina Trevino on 02-28-2023 Urea nitrogen [Mass/Vol] 27 mg/dL 7-25 [facility] Vitamin D 25 Hydroxy Totalon 02-28-2023 Vitamin D 25 Hydroxy Total 60.0 ng/mL Normal 30-100 [facility] Comment on above: Order Comment: Reaso n for Exam Chronic diastolic congestive heart failure Reason for Exam Bone pain Result Comment: ARACELIS MIN D STATUS 25(OH)VITAMIN D RANGE (ng/mL) Deficient <20 Insufficient 20 to <30 Sufficient 30 to 100 Reference: Osman MF,Melissa NC, MedardoSrinivas BUNDY et al. Evaluation,treatment, and prevention of vitamin D deficiency; an Endocrine Society clinical practice guideline. JCEM. 2010; 96(7):191-. PERFORMED BY: [place] [id number] PATHOLOGIST UROLOGY PHYSICIAN JOSEY BOUCHER M.D. Performed By: #### C BC, CMP, [id number] ####[facility] [id number] [place] [id number] [facility] Vitamin D+Metabolites [Mass/ volume] in Serum or PlasmaOrdered By: Delfina Trevino on 02-28-2023 Vitamin D+Metabolites [Mass/Vol] 60.0 ng/mL 30-100 [facility] Comment on above: VITAMIN D STATUS 25( [place])VITAMIN D RANGE (ng/mL) Deficient <20 Insufficient 20 to <30Sufficient 30 to 100Reference: Osman MF,Melissa LAST, Hernná BUNDY, et al. Evaluation,treatment, and prevention of vitamin D deficiency; an Endocrine Society clinical practice guideline. JCEM. 2010; 96(7):191-. WBC Auto (Bld) [#/Vol]Ordere d By: Delfina Trevino on 02-28-2023 WBC (Bld) [#/Vol] 10.5 10*3/uL 3.8-11.6 [facility] XR chest 2V*on 02-28-2023 XR chest 2V* [facility] Main [address] [address] XRay Report Signed Patient: Corie Courtney MR#: [id number] : 1950 Acct:[id number] Age/Sex: 72 / F ADM Date: 02/28/23 Loc: MD Room: Type: [facility] Attending Dr: Delfina Trevino APRN, TEST MAN-C Copies to: Delfina Trevino APRN,NAUN Ordering Provider: Delfina Trevino APRN,NAUN Date of Service: 02/28/23 XR/XR chest 2V*: [...] Jeanna Denton M.D.02/28/2023 9:34 AM Dictation Location: [facility]--10 Transcribed By: [facility] 02/28/2334 Dictated By: Jeanna Denton MD 02/28/2332 Signed By: 02/28/2334 Normal [facility] XR hip RT min 2V(w/wo pelvis )*on 12-16-2022 XR hip RT min 2V(w/wo pelvis)* [facility] [address] [place] [address] [place] [address] XRay Report Signed Patient: Corie Courtney MR#: [id number] : 1950 Acct:[id number] Age/Sex: 72 / F ADM Date: 12/16/22 Loc: ER Room: Type: [facility] ER Attending Dr: Copies to: Layo Sheridan APRN Ordering Provider: Layo Sheridan APRN Date of Service: 12/16/22 XR/XR hip RT min 2V(w/wo pelvis)*: Extremity Injury, Lower 2 views of the right hip with single view pelvis plain film COMPARISON:None HISTORY:Right groin pain for 3 weeks with extension down the right leg ACUTE FINDINGS:None DEGENERATIVE CHANGE:Recd-al-snen contact of the superior portion of the right hip joint with subarticular sclerotic and cystic changes and marginal spurring identified. Moderate left hip degeneration. Mild bilateral SI joint degeneration. SOFT TISSUE FINDINGS:Unremarkable JOINT EFFUSION:None POSTOP CHANGES:None BONY MINERALIZATION:[place] te XR/XR hip RT min 2V(w/wo pelvis)* IMPRESSION:Extensive right hip degeneration. Impression dictated by: Akil Osman M.D.12/16/2022 6:52 PM Dictation Location: [place] [address] Transcribed By: [facility] 12/16/221851 Dictated By: Akil Osman DO 12/16/221849 Signed By: 12/16/221851 Normal [facility] Albumin [Mass/volume] in Ser um or PlasmaOrdered By: Mark Avila on 05-12-2022 Albumin [Mass/Vol] 2.8 g/dL 3.2-5.5 [facility] Automated erythrocytes count in urine sediment (number/area)Ordered By: Mark Avila on 05-12-2022 RBC Auto (Urine sed) [#/Area] 3-4 [HPF] 0-4 [facility] Automated leukocytes count i n urine sediment (number/area)Ordered By: Mark Avila on 05-12-2022 WBC Auto (Urine sed) [#/Area] 3-4 [HPF] 0-4 [facility] Basophils Auto (Bld) [#/Vol] Ordered By: Mark Avila on 05-12-2022 Basophils (Bld) [#/Vol] 0.1 10*3/uL 0.0-0.2 [facility] Basophils/100 WBC Auto (Bld) Ordered By: Mark Avila on 05-12-2022 Basophils/100 WBC (Bld) 1.5 % . F [facility] Bilirubin Test strip Ql (U)O rdered By: Mark Avila on 05-12-2022 Bilirubin Ql (U) Negative Negative [facility] Blood hemoglobin measurement (mass/volume)Ordered By: Mark Avila on 05-12-2022 Hemoglobin (Bld) [Mass/Vol] 9.4 g/dL 11.8-15.4 [facility] Blood leukocytes automated c ount (number/volume)Ordered By: Mark Avila on 05-12-2022 WBC (Bld) [#/Vol] 9.5 10*3/uL 4.5-11.0 [facility] C reactive protein [Mass/vol ume] in Serum or PlasmaOrdered By: Mark Avila on 05-12-2022 CRP [Mass/Vol] 7.1 mg/dL 0.0-1.0 [facility] Color Auto (U)Ordered By: Claudine Avila on 05-12-2022 Color (U) Yellow Yellow [facility] Creatinine and Glomerular fi ltration rate.predicted panel (S/P/Bld)Ordered By: Mark Avila on 05-12-2022 Creatinine [Mass/Vol] 1.92 mg/dL 0.44-1.03 [facility] Eosinophils Auto (Bld) [#/Vo l]Ordered By: Mark Avila on 05-12-2022 Eosinophils (Bld) [#/Vol] 1.1 10*3/uL 0.0-0.45 [facility] Eosinophils/100 WBC Auto (Bl d)Ordered By: Mark Avila on 05-12-2022 Eosinophils/100 WBC (Bld) 11.9 % . [facility] Erythrocyte distribution wid th Auto (RBC) [Ratio]Ordered By: Mark Avila on 05-12-2022 Erythrocyte distribution width (RBC) [Ratio] 17.4 % 11.9-15.3 [facility] Erythrocyte sedimentation ra te by Photometric methodOrdered By: Mark Avila on 05-12-2022 ESR Photometric method (Bld) [Velocity] 120 mm/hr 0-29 [facility] Estimated glomerular filtrat ion rate (GFR) non- AmericanOrdered By: Mark Avila on 05-12-2022 GFR/1.73 sq M.predicted among non-blacks MDRD (S/P/Bld) [Vol rate/Area] 26 mL/Min [facility] Globulin Calc (S) [Mass/Vol] Ordered By: Mark Avila on 05-12-2022 Globulin (S) [Mass/Vol] 3.9 g/dL [facility] Hematocrit Auto (Bld) [Volum e fraction]Ordered By: Mark Avila on 05-12-2022 Hematocrit (Bld) [Volume fraction] 29.1 % 34.0-46.4 [facility] Ketones Auto test strip (U) [Mass/Vol]Ordered By: Mark Avila on 05-12-2022 Ketones (U) [Mass/Vol] Trace Negative [facility] - Chemistry and C hemistry - challengeOrdered By: Mark Avila on 05-12-2022 Amylase [Catalytic activity/Vol] 16 U/L 7-64 [facility] - Hematology and Cell countsOrdered By: Mark Avila on 05-12-2022 Nucleated RBC/100 WBC (Bld) [Ratio] 0.1 % 0-0.5 [facility] - UrinalysisOrder ed By: Mark Avila on 05-12-2022 Hyaline casts LM Ql (Urine sed) N/A [facility] Lymphocytes Auto (Bld) [#/Vo l]Ordered By: Mark Avila on 05-12-2022 Lymphocytes (Bld) [#/Vol] 2.0 10*3/uL 1.00-4.8 [facility] Lymphocytes/100 WBC Auto (Bl d)Ordered By: Mark Avila on 05-12-2022 Lymphocytes/100 WBC (Bld) 21.6 % . [facility] MCH Auto (RBC) [Entitic mass ]Ordered By: Mark Avila on 05-12-2022 MCH (RBC) [Entitic mass] 24.7 pg 24.7-34.3 [facility] MCHC Auto (RBC) [Mass/Vol]Or dered By: Mark Avila on 05-12-2022 MCHC (RBC) [Mass/Vol] 32.1 g/dL 32.0-35.0 [facility] MCV Auto (RBC) [Entitic vol] Ordered By: Mark Avila on 05-12-2022 MCV (RBC) [Entitic vol] 76.9 fL 80-100 [facility] Monocytes Auto (Bld) [#/Vol] Ordered By: Mark Avila on 05-12-2022 Monocytes (Bld) [#/Vol] 0.8 10*3/uL 0.0-0.8 [facility] Monocytes/100 WBC Auto (Bld) Ordered By: Mark Avila on 05-12-2022 Monocytes/100 WBC (Bld) 8.6 % . F [facility] Neutrophils Auto (Bld) [#/Vo l]Ordered By: Mark Avila on 05-12-2022 Neutrophils (Bld) [#/Vol] 5.3 10*3/uL 1.8-7.7 [facility] Neutrophils/100 WBC Auto (Bl d)Ordered By: Mark Avila on 05-12-2022 Neutrophils/100 WBC (Bld) 56.4 % . [facility] Nitrite Test strip Ql (U)Ord ered By: Mark Avila on 05-12-2022 Nitrite Ql (U) Negative Negative [facility] No Panel InformationOrdered By: Mark Avila on 05-12-2022 Estimated GFR () 31 mL/Min [facility] Comment on above: GFR estimated refere nce range: According to KDOQI guidelines, <60 ml/min/1.73m2 is sufficient to diagnose a patient with chronic kidney disease. Pharmacy Creatinine Clearance (Chem N/A [facility] Total Complement (CH50) >60 U/mL >41 [facility] Comment on above: Age Male Female [...] out of range values. Performed at: - [address] [id number] [employer]: Stone Tucker PhD, Phone: [phone] Platelet mean volume Auto (B ld) [Entitic vol]Ordered By: Mark Avila on 05-12-2022 Platelet mean volume (Bld) [Entitic vol] 7.4 fL 6.3-10.7 [facility] Platelets Auto (Bld) [#/Vol] Ordered By: Mark Avila on 05-12-2022 Platelets (Bld) [#/Vol] 656 10*3/uL 150-450 [facility] Protein Auto test strip (U) [Mass/Vol]Ordered By: Mark Avila on 05-12-2022 Protein (U) [Mass/Vol] Trace mg/dL Negative F [facility] Protein [Mass/volume] in Ser um or PlasmaOrdered By: Mark Avila on 05-12-2022 Protein [Mass/Vol] 6.7 g/dL 6.1-7.9 [facility] RBC Auto (Bld) [#/Vol]Ordere d By: Mark Avila on 05-12-2022 RBC (Bld) [#/Vol] 3.78 10*6/uL 3.60-5.00 [facility] Serum DNA double strand anti body assay (units/volume)Ordered By: Mark Avila on 05-12-2022 DNA double strand Ab Qn (S) [IU]/mL 0-9 [facility] Comment on above: Negative <5 Equivocal 5 - 9 Positive >9 Performed at: [employer] [facility] [id number] [employer]: Stone Tucker PhD, Phone: [phone] Serum Sjogrens syndrome-A ex tractable nuclear antibody assay (units/volume)Ordered By: Mark Avila on 05-12-2022 Sjogrens syndrome-A extractable nuclear Ab Qn (S) <0.2 AI 0.0-0.9 [facility] Serum or plasma alanine rajan otransferase measurement without P-5'-P (enzymatic activiOrdered By: Mark Avila on 05-12-2022 ALT No additional P-5'-P [Catalytic activity/Vol] 16 U/L 10-60 [facility] Serum or plasma albumin/glob ulin mass ratioOrdered By: Mark Avila on 05-12-2022 Albumin/Globulin [Mass ratio] 0.7 {ratio} [facility] Serum or plasma alkaline kim sphatase measurement (enzymatic activity/volume)Ordered By: Mark Avila on 05-12-2022 ALP [Catalytic activity/Vol] 117 U/L 32-92 [facility] Serum or plasma anion gap de terminationOrdered By: Mark Avila on 05-12-2022 Anion gap [Moles/Vol] 16.1 mmol/L 6.0-15.0 [facility] Serum or plasma aspartate am inotransferase measurement (enzymatic activity/volume)Ordered By: Mark Avila on 05-12-2022 AST [Catalytic activity/Vol] 18 U/L 10-42 [facility] Serum or plasma calcium ervin urement (mass/volume)Ordered By: Mark Avila on 05-12-2022 Calcium [Mass/Vol] 9.1 mg/dL 8.2-10.2 [facility] Serum or plasma chloride zhou surement (moles/volume)Ordered By: Mark Avila on 05-12-2022 Chloride [Moles/Vol] 94 mmol/L 95-114 [facility] Serum or plasma complement C 3 measurement (mass/volume)Ordered By: Mark Avila on 05-12-2022 Complement C3 [Mass/Vol] 135 mg/dL 82-167 [facility] Comment on above: Performed at: [address] [id number] [employer]: Stone Tucker PhD, Phone: [phone] Serum or plasma complement C 4 measurement (mass/volume)Ordered By: Mark Avila on 05-12-2022 Complement C4 [Mass/Vol] 28 mg/dL 12-38 [facility] Serum or plasma glucose ervin urement (mass/volume)Ordered By: Mark Avila on 05-12-2022 Glucose [Mass/Vol] 85 mg/dL 70-100 [facility] Comment on above: ADA recommended refe rence range Random Glucose Reference Range is dependent on time and content of last meal. Glucose of more than 200 mg/dL in a nonstressed, ambulatory subject supports the diagnosis of Diabetes Mellitus. Serum or plasma intact parat hyroid hormone measurement (mass/volume)Ordered By: Mark Avila on 05-12-2022 Parathyrin.intact [Mass/Vol] 30.3 pg/mL 1288 [facility] Serum or plasma potassium me asurement (moles/volume)Ordered By: Mark Avila on 05-12-2022 Potassium [Moles/Vol] 5.4 mmol/L 3.5-5.1 [facility] Serum or plasma sodium measu rement (moles/volume)Ordered By: Mark Avila on 05-12-2022 Sodium [Moles/Vol] 126 mmol/L 136-146 [facility] Serum or plasma total biliru bin measurement (mass/volume)Ordered By: Mark Avila on 05-12-2022 Bilirubin [Mass/Vol] 0.4 mg/dL 0.3-1.2 [facility] Serum or plasma total carbon dioxide measurement (moles/volume)Ordered By: Mark Avila on 05-12-2022 CO2 [Moles/Vol] 21.3 mmol/L 22.0-30.0 [facility] Serum or plasma urea nitroge n measurement (mass/volume)Ordered By: Mark Avila on 05-12-2022 Urea nitrogen [Mass/Vol] 26 mg/dL 9-23 [facility] Serum or plasma uric acid me asurement (mass/volume)Ordered By: Mark Avila on 05-12-2022 Urate [Mass/Vol] 6.1 mg/dL 2.6-7.2 [facility] Specific gravity Auto test s trip (U) [Rel density]Ordered By: Mark Avila on 05-12-2022 Specific gravity (U) [Rel density] 1.016 1.001-1.030 [facility] Squamous epithelial cells de tection in urine sediment by light microscopyOrdered By: Mark Avila on 05-12-2022 Epithelial cells.squamous LM Ql (Urine sed) 3-4 [HPF] 0-2 [facility] TSH DL <= 0.005 mIU/L QnOrde red By: Mark Avila on 05-12-2022 TSH Qn 2.66 m[IU]/L 0.45-5.33 [facility] Urine bacteria detection by automated methodOrdered By: Mark Avila on 05-12-2022 Bacteria Auto Ql (U) None seen None Seen [facility] Urine clarity by refractomet ry automatedOrdered By: Mark Avila on 05-12-2022 Clarity Refractometry automated (U) Clear Clear [facility] Urine glucose measurement by automated test strip (mass/volume)Ordered By: Mark Avila on 05-12-2022 Glucose Auto test strip (U) [Mass/Vol] Normal mg/dL Normal [facility] Urine hemoglobin detection b y automated test stripOrdered By: Mark Avila on 05-12-2022 Hemoglobin Auto test strip Ql (U) Negative Negative [facility] Urine leukocyte esterase det ection by automated test stripOrdered By: Mark Avila on 05-12-2022 Leukocyte esterase Auto test strip Ql (U) 1+ Negative [facility] Urobilinogen Auto test strip (U) [Mass/Vol]Ordered By: Mark Avila on 05-12-2022 Urobilinogen (U) [Mass/Vol] Normal mg/dL Normal [facility] pH Auto test strip (U)Ordere d By: Mark Avila on 05-12-2022 pH (U) 5.5 [pH] 5.0-9.0 [facility] Urine culture routineOrdered By: Parvin Batres on 04-19-2022 Bacteria identified Cx Nom (U) Escherichia coli [facility] Basophils Auto (Bld) [#/Vol] Ordered By: Josué Alvarez on 04-18-2022 Basophils (Bld) [#/Vol] 0.1 10*3/uL 0.0-0.2 [facility] Basophils/100 WBC Auto (Bld) Ordered By: Josué Alvarez on 04-18-2022 Basophils/100 WBC (Bld) 1.0 % . F [facility] Blood hemoglobin measurement (mass/volume)Ordered By: Josué Alvarez on 04-18-2022 Hemoglobin (Bld) [Mass/Vol] 9.2 g/dL 11.8-15.4 [facility] Blood leukocytes automated c ount (number/volume)Ordered By: Josué Alvarez on 04-18-2022 WBC (Bld) [#/Vol] 8.1 10*3/uL 4.5-11.0 [facility] Creatinine and Glomerular fi ltration rate.predicted panel (S/P/Bld)Ordered By: Josué Alvarez on 04-18-2022 Creatinine [Mass/Vol] 0.82 mg/dL 0.44-1.03 [facility] Eosinophils Auto (Bld) [#/Vo l]Ordered By: Josué Alvarez on 04-18-2022 Eosinophils (Bld) [#/Vol] 0.3 10*3/uL 0.0-0.45 [facility] Eosinophils/100 WBC Auto (Bl d)Ordered By: Josué Alvarez on 04-18-2022 Eosinophils/100 WBC (Bld) 3.3 % . [facility] Erythrocyte distribution wid th Auto (RBC) [Ratio]Ordered By: Josué Alvarez on 04-18-2022 Erythrocyte distribution width (RBC) [Ratio] 16.4 % 11.9-15.3 [facility] Estimated glomerular filtrat ion rate (GFR) non- AmericanOrdered By: Josué Alvarez on 04-18-2022 GFR/1.73 sq M.predicted among non-blacks MDRD (S/P/Bld) [Vol rate/Area] > 60 mL/Min [facility] Hematocrit Auto (Bld) [Volum e fraction]Ordered By: Josué Alvarez on 04-18-2022 Hematocrit (Bld) [Volume fraction] 27.5 % 34.0-46.4 [facility] Laboratory - Chemistry and C hemistry - challengeOrdered By: Josué Alvarez on 04-18-2022 Magnesium [Mass/Vol] 1.9 mg/dL 1.6-2.6 [facility] Laboratory - Hematology and Cell countsOrdered By: Josué Alvarez on 04-18-2022 Nucleated RBC/100 WBC (Bld) [Ratio] 0.1 % 0-0.5 [facility] Lymphocytes Auto (Bld) [#/Vo l]Ordered By: Josué Alvarez on 04-18-2022 Lymphocytes (Bld) [#/Vol] 1.8 10*3/uL 1.00-4.8 [facility] Lymphocytes/100 WBC Auto (Bl d)Ordered By: Josué Alvarez on 04-18-2022 Lymphocytes/100 WBC (Bld) 22.3 % . [facility] MCH Auto (RBC) [Entitic mass ]Ordered By: Josué Alvarez on 04-18-2022 MCH (RBC) [Entitic mass] 25.4 pg 24.7-34.3 [facility] MCHC Auto (RBC) [Mass/Vol]Or dered By: Josué Alvarez on 04-18-2022 MCHC (RBC) [Mass/Vol] 33.5 g/dL 32.0-35.0 [facility] MCV Auto (RBC) [Entitic vol] Ordered By: Josué Alvarez on 04-18-2022 MCV (RBC) [Entitic vol] 75.8 fL 80-100 F [facility] Monocytes Auto (Bld) [#/Vol] Ordered By: Josué Alvarez on 04-18-2022 Monocytes (Bld) [#/Vol] 0.7 10*3/uL 0.0-0.8 [facility] Monocytes/100 WBC Auto (Bld) Ordered By: Josué Alvarez on 04-18-2022 Monocytes/100 WBC (Bld) 8.3 % . [facility] Neutrophils Auto (Bld) [#/Vo l]Ordered By: Josué Alvarez on 04-18-2022 Neutrophils (Bld) [#/Vol] 5.3 10*3/uL 1.8-7.7 [facility] Neutrophils/100 WBC Auto (Bl d)Ordered By: Josué Alvarez on 04-18-2022 Neutrophils/100 WBC (Bld) 65.1 % . [facility] No Panel InformationOrdered By: Josué Alvarez on 04-18-2022 Estimated GFR () > 60 mL/Min [facility] Comment on above: GFR estimated refere nce range: According to KDOQI guidelines, <60 ml/min/1.73m2 is sufficient to diagnose a patient with chronic kidney disease. Pharmacy Creatinine Clearance (Chem 46.00 [facility] Platelet mean volume Auto (B ld) [Entitic vol]Ordered By: Josué Alvarez on 04-18-2022 Platelet mean volume (Bld) [Entitic vol] 6.9 fL 6.3-10.7 [facility] Platelets Auto (Bld) [#/Vol] Ordered By: Josué Alvarez on 04-18-2022 Platelets (Bld) [#/Vol] 714 10*3/uL 150-450 [facility] RBC Auto (Bld) [#/Vol]Ordere d By: Josué Alvarez on 04-18-2022 RBC (Bld) [#/Vol] 3.63 10*6/uL 3.60-5.00 [facility] Serum or plasma calcium ervin urement (mass/volume)Ordered By: Josué Alvarez on 04-18-2022 Calcium [Mass/Vol] 9.3 mg/dL 8.2-10.2 [facility] Serum or plasma chloride zhou surement (moles/volume)Ordered By: Josué Alvarez on 04-18-2022 Chloride [Moles/Vol] 92 mmol/L 95-114 [facility] Serum or plasma glucose ervin urement (mass/volume)Ordered By: Josué Alvarez on 04-18-2022 Glucose [Mass/Vol] 92 mg/dL 70-100 [facility] Comment on above: ADA recommended refe rence range Random Glucose Reference Range is dependent on time and content of last meal. Glucose of more than 200 mg/dL in a nonstressed, ambulatory subject supports the diagnosis of Diabetes Mellitus. Serum or plasma potassium me asurement (moles/volume)Ordered By: Josué Alvarez on 04-18-2022 Potassium [Moles/Vol] 4.2 mmol/L 3.5-5.1 [facility] Serum or plasma sodium measu rement (moles/volume)Ordered By: Josué Alvarez on 04-18-2022 Sodium [Moles/Vol] 129 mmol/L 136-146 [facility] Serum or plasma total carbon dioxide measurement (moles/volume)Ordered By: Josué Alvarez on 04-18-2022 CO2 [Moles/Vol] 25.8 mmol/L 22.0-30.0 [facility] Serum or plasma urea nitroge n measurement (mass/volume)Ordered By: Josué Alvarez on 04-18-2022 Urea nitrogen [Mass/Vol] 15 mg/dL 9-23 [facility] Automated epithelial cells c ount in urine sediment (number/area)Ordered By: Parvin Batres on 04-17-2022 Epithelial cells Auto (Urine sed) [#/Area] 10-19 [HPF] 0-2 [facility] Automated erythrocytes count in urine sediment (number/area)Ordered By: Parvin Batres on 04-17-2022 RBC Auto (Urine sed) [#/Area] 5-9 [HPF] 0-4 [facility] Automated leukocytes count i n urine sediment (number/area)Ordered By: Parvin Batres on 04-17-2022 WBC Auto (Urine sed) [#/Area] Innumerable [HPF] 0-4 [facility] Bilirubin Test strip Ql (U)O rdered By: Parvin Batres on 04-17-2022 Bilirubin Ql (U) Negative Negative [facility] Cholesterol [Mass/volume] in Serum or PlasmaOrdered By: Parvin Batres on 04-17-2022 Cholesterol [Mass/Vol] 134 mg/dL 140-200 [facility] Comment on above: Chol less than 200 m g/dl low risk Chol 201-239 mg/dl borderline risk Chol 240 mg/dl and greater high risk Cholesterol in LDL Calc [Mas s/Vol]Ordered By: Parvin Batres on 04-17-2022 Cholesterol in LDL [Mass/Vol] 76 mg/dL 0-100 [facility] Comment on above: LDL ATP III CLASSIFI CATION LDL less than 100 mg/dL Optimal LDL 100-129 mg/dL Near or above optimal LDL 130-159 mg/dL Borderline high LDL 160-189 mg/dL High LDL greater than 189 mg/dL Very high Cholesterol in VLDL Calc [Ma ss/Vol]Ordered By: Parvin Batres on 04-17-2022 Cholesterol in VLDL [Mass/Vol] 13 mg/dL [facility] Color Auto (U)Ordered By: King Batres on 04-17-2022 Color (U) Yellow Yellow [facility] Glucose mean value [Mass/vol ume] in Blood Estimated from glycated hemoglobinOrdered By: Josué Alvarez on 04-17-2022 Average glucose Estimated from glycated hemoglobin (Bld) [Mass/Vol] 131 mg/dL [facility] Hemoglobin A1c percentageOrd ered By: Josué Alvarez on 04-17-2022 HbA1c (Bld) [Mass fraction] 6.2 % 4.3-5.6 [facility] Comment on above: Increased risk for d iabetes: 5.7 - 6.4 diabetes: >6.4 glycemic control for adults with diabetes: <7.0 Ketones Auto test strip (U) [Mass/Vol]Ordered By: Parvin Batres on 04-17-2022 Ketones (U) [Mass/Vol] Negative Negative [facility] Nitrite Test strip Ql (U)Ord ered By: Parvin Batres on 04-17-2022 Nitrite Ql (U) Negative Negative [facility] Protein Auto test strip (U) [Mass/Vol]Ordered By: Parvin Batres on 04-17-2022 Protein (U) [Mass/Vol] Negative Negative [facility] Serum or plasma high density lipoprotein (HDL) cholesterol measurementOrdered By: Parvin Batres on 04-17-2022 Cholesterol in HDL [Mass/Vol] 44 mg/dL 35-85 [facility] Comment on above: HDL CHOL ATP-III CLA SSIFICATION Cardiovascular Risk HDL > or equal to 60 mg/dL LOW HDL < 40 mg/dL HIGH Serum or plasma total choles terol/high density lipoprotein (HDL) cholesterol mass ratOrdered By: Parvin Batres on 04-17-2022 Cholesterol.total/Lisa sterol in HDL [Mass ratio] 3.0 {ratio} <5.0 [facility] Specific gravity Auto test s trip (U) [Rel density]Ordered By: Parvin Batres on 04-17-2022 Specific gravity (U) [Rel density] 1.013 1.001-1.030 [facility] Triglyceride [Mass/volume] i n Serum or PlasmaOrdered By: Parvin Batres on 04-17-2022 Triglyceride [Mass/Vol] 68 mg/dL 35-149 [facility] Comment on above: TRIG ATP III CLASSIF ICATION TRIG less than 150 mg/dL Normal TRIG 150-199 mg/dL Borderline high TRIG 200-500 mg/dL High TRIG greater than 500 mg/dL Very high Standard traceable to the Center for Disease Conrtrol and Prevention (CDC) test method. Troponin I.cardiac [Mass/vol ume] in Serum or Plasma by High sensitivity methodOrdered By: Josué Alvarez on 04-17-2022 Troponin I.cardiac High sensitivity method [Mass/Vol] 435 pg/mL 0-15 [facility] Comment on above: Results called at 0847 on 04/17/22 Urine bacteria detection by automated methodOrdered By: Parvin Batres on 04-17-2022 Bacteria Auto Ql (U) 3+ None Seen [facility] Urine clarity by refractomet ry automatedOrdered By: Parvin Batres on 04-17-2022 Clarity Refractometry automated (U) Cloudy Clear [facility] Urine glucose measurement by automated test strip (mass/volume)Ordered By: Parvin Batres on 04-17-2022 Glucose Auto test strip (U) [Mass/Vol] Normal mg/dL Normal [facility] Urine hemoglobin detection b y automated test stripOrdered By: Parvin Batres on 04-17-2022 Hemoglobin Auto test strip Ql (U) Trace Negative [facility] Urine leukocyte esterase det ection by automated test stripOrdered By: Parvin Batres on 04-17-2022 Leukocyte esterase Auto test strip Ql (U) 4+ Negative [facility] Urobilinogen Auto test strip (U) [Mass/Vol]Ordered By: Parvin Batres on 04-17-2022 Urobilinogen (U) [Mass/Vol] Normal mg/dL Normal [facility] pH Auto test strip (U)Ordere d By: Parvin Batres on 04-17-2022 pH (U) 7.0 [pH] 5.0-9.0 [facility] Activated partial thrombopla stin time (aPTT) in platelet poor plasma by coagulation aOrdered By: Layo Sheridan on 04-16-2022 aPTT Coag (PPP) [Time] 30.5 s 25.1-36.5 [facility] Albumin [Mass/volume] in Ser um or PlasmaOrdered By: Layo Sheridan on 04-16-2022 Albumin [Mass/Vol] 2.6 g/dL 3.2-5.5 [facility] COVID CepheidOrdered By: Ana Ramirez on 04-16-2022 SARS-CoV-2 (COVID-19) Ab IA Ql Negative Negative [facility] Comment on above: This is a duplicate [employer] Xpert Xpress CoV-2/Flu/RSV Plus RNA by RT-PCR result to be used for statistical tracking purpose only. SARS-CoV-2 (COVID-19) RNA KIARRA+probe Ql (Unsp spec) [facility] Direct bilirubin measurement Ordered By: Layo Sheridan on 04-16-2022 Bilirubin.direct [Mass/Vol] mg/dL 0.0-0.4 [facility] Globulin Calc (S) [Mass/Vol] Ordered By: Layo Sheridan on 04-16-2022 Globulin (S) [Mass/Vol] 3.9 g/dL [facility] Laboratory - Chemistry and C hemistry - challengeOrdered By: Layo Sheridan on 04-16-2022 Natriuretic peptide B (Bld) [Mass/Vol] 118.0 pg/mL 5-100 [facility] Laboratory - CoagulationOrde red By: Layo Sheridan on 04-16-2022 PT Coag (PPP) [Time] 14.0 s 9.0-12.9 [facility] Platelet poor plasma interna tional normalized ratio (INR) by coagulation assay (relatOrdered By: Layo Sheridan on 04-16-2022 INR Coag (PPP) [Relative time] 1.2 {INR} [facility] Comment on above: INR Therapeutic Rang [...] on 04-16-2022 Protein [Mass/Vol] 6.5 g/dL 6.1-7.9 [facility] Serum or plasma alanine rajan otransferase measurement without P-5'-P (enzymatic activiOrdered By: Layo Sheridan on 04-16-2022 ALT No additional P-5'-P [Catalytic activity/Vol] 17 U/L 10-60 [facility] Serum or plasma albumin/glob ulin mass ratioOrdered By: Layo Sheridan on 04-16-2022 Albumin/Globulin [Mass ratio] 0.7 {ratio} [facility] Serum or plasma alkaline kim sphatase measurement (enzymatic activity/volume)Ordered By: Layo Sheridan on 04-16-2022 ALP [Catalytic activity/Vol] 85 U/L 32-92 [facility] Serum or plasma aspartate am inotransferase measurement (enzymatic activity/volume)Ordered By: Layo Sheridan on 04-16-2022 AST [Catalytic activity/Vol] 17 U/L 10-42 [facility] Serum or plasma non-glucuron idated bilirubin measurement (mass/volume)Ordered By: Layo Sheridan on 04-16-2022 Bilirubin.indirect [Mass/Vol] TNP [facility] Comment on above: Test not performed Serum or plasma total biliru bin measurement (mass/volume)Ordered By: Layo Sheridan on 04-16-2022 Bilirubin [Mass/Vol] 0.4 mg/dL 0.3-1.2 [facility] XR knee LT 4V*on 01-29-2022 XR knee LT 4V* [facility] [employer] Other XR knee LT 4V* [facility] [employer] Other XR knee LT 4V* [address] [place] [address] [employer] Other XR knee LT 4V* [place] [address] No rt [employer] Other XR knee LT 4V* XRay Report [employer] Other XR knee LT 4V* Signed [employer] Other XR knee LT 4V* Patient: Corie Courtney MR#: [id number] [employer] Other XR knee LT 4V* [id number] [employer] Other XR knee LT 4V* : 1950 Acct:[id number] [employer] Other XR knee LT 4V* Age/Sex: 71 / F ADM Date: 01/29/22 [employer] Other XR knee LT 4V* Loc: [facility]DUCLY Room: Type: [facility] [employer] Other XR knee LT 4V* Attending Dr: Estelita ACEVEDO [employer] Other XR knee LT 4V* Ordering Provider: CURTIS Bhardwaj [employer] Other XR knee LT 4V* Date of Service: 01/29/22 [employer] Other XR knee LT 4V* XR/XR knee LT 4V*: LEFT KNEE PAIN [employer] Other XR knee LT 4V* Copies to: CURTIS Bhardwaj [employer] Other XR knee LT 4V* LEFT KNEE - 4 views N [employer] Other XR knee LT 4V* CLINICAL HISTORY: Left knee pain and swelling for 2 months. No known trauma. [employer] Other XR knee LT 4V* [facility] [employer] Other [facility]V* FINDINGS: [employer] Other XR knee LT 4V* Large knee joint effusion with likely Ness's cyst. Vascular calcifications. Bones are grossly [employer] Other XR knee LT 4V* demineralized. No acute bony process. Minimal degenerative change. No significant joint space [employer] Other XR knee LT 4V* narrowing. [employer] Other XR knee LT 4V* XR/XR knee LT 4V* [employer] Other XR knee LT 4V* IMPRESSION: [employer] Other XR knee LT 4V* LARGE KNEE JOINT EFFUSION WITH PRESUMED NESS'S CYST NOTED. MINIMAL DEGENERATIVE CHANGE. NO ACUTE [employer] Other XR knee LT 4V* BONY PROCESS. [employer] Other XR knee LT 4V* Impression dictated by: Obie Chaidez Jr., DDominiqueODominique01/29/2022 5:02 PM [employer] Other XR knee LT 4V* Dictation Location: [place] [address] [employer] Other XR knee LT 4V* Transcribed By: PWS 01/29/22 [facility] [employer] Other XR knee LT 4V* Dictated By: Obie Chaidez Jr DO 01/29/22 [facility] [employer] Other XR knee LT 4V* Signed By: [employer] Other XR knee LT 4V* 01/29/22 [facility] [employer] Other XR WRIST LT MIN 3 Von 2018 XR WRIST LT MIN 3 V Patient: CORIE COURTNEY Exam Date: 01/15/2019 : 1950 Gender:F Ordering : DR. GUME RODRIGUEZ M.D. Admission #: [id number] Family : Order #: [id number] CLICK HERE TO VIEW EXAM RADIOLOGY REPORT [...] Rogers Sheehan M.D. on 01/15/2019 at 08:27 [facility] Vital Signs Date Time Vital Sign Value Performing Clinician Facility 11-06-2023 18:21-0500 Diastolic blood pressure 83 mm[Hg] Services [facility] Work Phone: [facility] 11-06-2023 18:21-0500 Heart rate 87 /min Services [facility] Work Phone: [facility] 11-06-2023 18:21-0500 Respiratory rate 18 /min Services [facility] Work Phone: [facility] 11-06-2023 18:21-0500 SaO2% (BldA) [Mass fraction] 99 % Services [employer] Work Phone: [facility] 11-06-2023 18:21-0500 Systolic blood pressure 141 mm[Hg] Services [employer] Work Phone: [facility] 11-06-2023 18:07-0500 Body height 149.86 cm Services [employer] Work Phone: [facility] 11-06-2023 18:07-0500 Body weight 45.4 kg Services [employer] Work Phone: [facility] 11-06-2023 16:44-0500 Body temperature 97.9 [degF] Services [employer] Work Phone: [facility] 03-22-2023 09:00-0400 Body height 149.86 cm Joy Kaiser Other [employer] Other 03-22-2023 09:00-0400 Body mass index (BMI) [Ratio] 19.59 kg/m2 Joy Kaiser Other [employer] Other 03-22-2023 09:00-0400 Body temperature 96.4 [degF] Joy Kaiser Other [employer] Other 03-22-2023 09:00-0400 Body weight 44 kg Joy Kaiser Other [employer] Other 03-22-2023 09:00-0400 Diastolic blood pressure 84 mm[Hg] Joy Kaiser Other [employer] Other 03-22-2023 09:00-0400 Respiratory rate 20 /min Joy Kaiser Other [employer] Other 03-22-2023 09:00-0400 SaO2% (BldA) [Mass fraction] 97 % Joy Kaiser Other [employer] Other 03-22-2023 09:00-0400 Systolic blood pressure 158 mm[Hg] Joy Kaiser Other [employer] Other 03-04-2023 08:13-0400 Body height 152.4 cm Delfina Trevino Work Phone: [facility]-Prtbfjrpnw-Lzvlfd [place] 250 DO Work Phone: 03-04-2023 08:13-0400 Body mass index (BMI) [Ratio] 18.75 kg/m2 Delfina Trevino Work Phone: BN-Ewhlssbslu-Gejwjf [place] 250 DO Work Phone: 03-04-2023 08:13-0400 Body surface area Derived from formula 1.37 m2 Delfina Trevino Work Phone: U[facility]-Iwzrlzukje-Twxhhk [place] 250 DO Work Phone: 03-04-2023 08:13-0400 Body weight 43.55 kg Delfina Trevino Work Phone: PR-Qiwxjbkecw-Frokzi [place] 250 DO Work Phone: 03-04-2023 08:13-0400 Diastolic blood pressure 68 mm[Hg] Delfina K Myerholtz Work Phone: VE-Gmkhljfgzf-Itxddd [place] 250 DO Work Phone: 03-04-2023 08:13-0400 Heart rate 83 /min Delfina K Myerholtz Work Phone: RE-Eobyuizzkk-Vwtlyy [place] 250 DO Work Phone: 03-04-2023 08:13-0400 Systolic blood pressure 122 mm[Hg] Delfina K Myerholtz Work Phone: DN-Pbcbzllwxr-Sytchr [place] 250 DO Work Phone: 02-28-2023 09:46-0400 Diastolic blood pressure 77 mm[Hg] [employer] Delfina Myerholtz Work Phone: [facility] 02-28-2023 09:46-0400 Heart rate 90 /min [employer] Delfina Myerholtz Work Phone: [facility] 02-28-2023 09:46-0400 Systolic blood pressure 133 mm[Hg] [employer] Delfina Myerholtz Work Phone: [facility] 02-28-2023 09:44-0400 Body height 152.4 cm [employer] Delfina Myerholtz Work Phone: [facility] 02-28-2023 09:44-0400 Body weight 45.35 kg [employer] Delfina Myerholtz Work Phone: [facility] 02-28-2023 00:00-0400 93 1 Jaquelin Connell MD Work Phone: [facility] 600 DO Work Phone: Comment on above: [id number] 12-16-2022 16:50-0400 Body temperature 98.3 [degF] [employer] Delfina Myerholtz Work Phone: [facility] 12-16-2022 16:50-0400 Diastolic blood pressure 90 mm[Hg] [employer] Delfina Myerholtz Work Phone: [facility] 12-16-2022 16:50-0400 Heart rate 91 /min [employer] Delfina Myerholtz Work Phone: [facility] 12-16-2022 16:50-0400 Respiratory rate 20 /min [employer] Delfina Myerholtz Work Phone: [facility] 12-16-2022 16:50-0400 SaO2% (BldA) [Mass fraction] 100 % [employer] Delfina Myerholtz Work Phone: [facility] 12-16-2022 16:50-0400 Systolic blood pressure 180 mm[Hg] [employer] Delfina Myerholtz Work Phone: [facility] 12-16-2022 16:49-0400 Body height 152.4 cm [employer] Delfina Myerholtz Work Phone: [facility] 12-16-2022 16:49-0400 Body weight 48.98 kg [employer] Delfina Myerholtz Work Phone: [facility] 09-22-2022 16:20-0500 Body height 152.4 cm [employer] Other [employer] Other 09-22-2022 16:20-0500 Body mass index (BMI) [Ratio] 19.76 kg/m2 [employer] Other [employer] Other 09-22-2022 16:20-0500 Body temperature 97.4 [degF] [employer] Other [employer] Other 09-22-2022 16:20-0500 Body weight 45.9 kg [employer] Other [employer] Other 09-22-2022 16:20-0500 Diastolic blood pressure 82 mm[Hg] Linda Mccarthys Other [facility] [employer] Other 09-22-2022 16:20-0500 Respiratory rate 18 /min Linda Mccarthys Other [employer] Other 09-22-2022 16:20-0500 SaO2% (BldA) [Mass fraction] 96 % Linda Mccarthys Other [employer] [facility] [employer] Other 09-22-2022 16:20-0500 Systolic blood pressure 130 mm[Hg] Linda Mccarthys Other [facility] [employer] Other 04-18-2022 11:34-0400 Heart rate 71 /min [employer] Delfina Myerholtz Work Phone: [facility] 04-18-2022 11:34-0400 Respiratory rate 20 /min [employer] Delfina Myerholtz Work Phone: [facility] 04-18-2022 11:11-0400 Body temperature 97.2 [degF] [employer] Delfina Myerholtz Work Phone: [facility] 04-18-2022 11:11-0400 Diastolic blood pressure 68 mm[Hg] [employer] Delfina Myerholtz Work Phone: [facility] 04-18-2022 11:11-0400 SaO2% (BldA) [Mass fraction] 98 % [employer] Delfina Myerholtz Work Phone: [facility] 04-18-2022 11:11-0400 Systolic blood pressure 100 mm[Hg] [employer] Delfina Myerholtz Work Phone: [facility] 04-18-2022 04:48-0400 Body weight 45 kg [employer] Delfina Myerholtz Work Phone: [facility] 04-17-2022 00:00-0400 70 1 Jaquelin Connell MD Work Phone: [facility] 250 DO Work Phone: Comment on above: [id number] 04-16-2022 23:00-0400 Body height 152.4 cm [employer] Delfinadaniel Trevino Work Phone: [facility] 01-29-2022 17:20-0400 Body height 152.4 cm Estelita Sheridan Other [employer] Other 01-29-2022 17:20-0400 Body mass index (BMI) [Ratio] 19.49 kg/m2 Estelita Fatimah Other [employer] Other 01-29-2022 17:20-0400 Body temperature 98 [degF] Estelita Fatimah Other [employer] Other 01-29-2022 17:20-0400 Body weight 45.27 kg Estelita Fatimah Other [employer] Other 01-29-2022 17:20-0400 Diastolic blood pressure 77 mm[Hg] Estelita Sheridan Other [employer] Other 01-29-2022 17:20-0400 Respiratory rate 18 /min Estelitadaysi Sheridan Other [employer] Other 01-29-2022 17:20-0400 SaO2% (BldA) [Mass fraction] 97 % Estelita Sheridan Other [employer] Other 01-29-2022 17:20-0400 Systolic blood pressure 131 mm[Hg] Estelita Sheridan Other [employer] Other Encounters Encounter Date Encounter Type Care Provider Facility Start: 11-06-2023 End: 11-06-2023 Emergency department patient visit Enedelia Gordon Facility:[facility] Start: 11-06-2023 End: 11-06-2023 Emergency department patient visit Services [facility] Work Phone: [facility] Work Phone: Start: 11-02-2023 End: 11-02-2023 ambulatory Delfina Trevino Facility:[facility] Start: 11-02-2023 End: 11-02-2023 ambulatory IFTIKHAR Trevino Work Phone: [facility] Work Phone: Start: 11-02-2023 End: 11-02-2023 Departed Referred IFTIKHAR Trevino Work Phone: [facility] Start: 10-31-2023 End: 11-01-2023 ambulatory Serge Rodriguez MD Facility: [facility] Start: 10-17-2023 End: 10-18-2023 ambulatory Serge Rodriguez MD Facility: [facility] Start: 06-20-2023 End: 06-21-2023 ambulatory Serge Rodriguez MD Facility: [facility] Start: 05-23-2023 End: 05-24-2023 ambulatory Serge Rodriguez MD Facility: [facility] Start: 03-22-2023 End: 03-22-2023 ambulatory Joy Kaiser Other [employer] Other Start: 03-22-2023 Office outpatient ne w 45 minutes Joy Kaiser [facility] Start: 03-07-2023 End: 03-07-2023 ambulatory Delfina Trevino Facility:[facility] Start: 03-07-2023 End: 03-07-2023 ambulatory Delfina Mae Yojanapenny Facility:[facility] Start: 03-07-2023 End: 03-07-2023 Patient encounter procedure IFTIKHAR Mathis Samanthariohollipenny Work Phone: [facility]-Respiratory Therapy Work Phone: Start: 03-07-2023 End: 03-07-2023 ambulatory IFTIKHAR Mae Samanthariokyrie Work Phone: [facility] Work Phone: Start: 03-07-2023 End: 03-07-2023 Patient encounter procedure 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 Delfina Thomas Belinda Facility: Start: 03-03-2023 AUDIT Jaquelin de jesus MD Work Phone: [facility] 600 DO Work Phone: Start: 02-28-2023 End: 02-28-2023 ambulatory Ms. Delfina Thomas Belinda Facility:90 Start: 02-28-2023 End: 02-28-2023 ambulatory IFTIKHAR Mae Belinda Work Phone: [facility] Work Phone: Start: 02-28-2023 End: 02-28-2023 Patient encounter procedure IFTIKHAR Mathis Samanthariohollipenny Work Phone: [facility]-Nuc Med [place] Work Phone: Start: 12-16-2022 End: 12-16-2022 Emergency department patient visit Layo Sheridan Facility:[facility] Start: 12-16-2022 End: 12-16-2022 Emergency department patient visit [employer] H[employer] DRIVERHuang Mathis Belinda Work Phone: [facility]-Emergency Room Work Phone: Start: 09-22-2022 End: 09-22-2022 ambulatory Aztono Bakdanas Other [employer] Other Start: 09-22-2022 Office outpatient ne w 30 minutes Aztono Bakdanas [facility] Start: 05-12-2022 End: 05-12-2022 Patient encounter procedure [employer] Delfina Belinda Work Phone: [facility]-XRay [address] Start: 04-19-2022 Telephone encounter Jaquelin ha MD Work Phone: [facility] 250 DO Work Phone: Start: 04-16-2022 End: 04-18-2022 Evaluation and management of inpatient [employer] Delfina Belinda Work Phone: [facility] [place] [facility] Start: 01-29-2022 End: 01-29-2022 ambulatory Estelita Sheridan Other [employer] Other Start: 01-29-2022 Office outpatient vi sit 15 minutes Estelita Sheridan [facility] Start: 01-15-2019 End: 01-15-2019 Patient encounter procedure [facility] Facility:H1 Patient encounter status Delfina Trevino Work Phone: EU-Hpyemtjikd-Fqumbbbo 250 DO Work Phone: Procedures Date Procedure Procedure Detail Performing Clinician Start: 03-07-2023 Dual energy X-ray absorptiometry [employer] Delfnia Belinda Work Phone: Start: 02-28-2023 Radionuclide myocard ial perfusion stress study [employer] Delfina Belinda Work Phone: Start: 02-28-2023 Plain chest X-ray [employer] Delfina Trevino Work Phone: Start: 12-16-2022 Plain X-ray of right hip [employer] Delfina Trevino Work Phone: Start: 05-12-2022 X-ray of both ankles AP RONEY Trevino Work Phone: Start: 05-12-2022 X-ray of both feet [employer] H[employer]SE HITCH DRIVERHuang Trevino Work Phone: Start: 04-16-2022 Duplex scan of lower limb veins S[employer] H[employer]SE HITCH DRIVERHuang BlackDelfina Belinda Work Phone: Start: 04-16-2022 Plain chest X-ray [employer] H[employer]SE HITCH DRIVERHuang Trevino Work Phone: section Delfina Mae Belinda Work Phone: Excision of basal ce ll carcinoma Delfinadaniel Trevino Work Phone: Operative procedure on foot Delfinadaniel Trevino Work Phone: Operative procedure on wrist Delfina Carmelita Trevino Work Phone: SARS-CoV-2, Influenz a & RSV (PCR) [employer] Delfinacorie Trevino Work Phone: Tonsillectomy Delfinadaniel barrera Work Phone: Urine culture [employer] Delfinadaniel Trevino Work Phone: Plan of Treatment Date Care Activity Detail Author Start: 02-28-2023 Radionuclide myocard ial perfusion stress study NM jony perf SPECT rest & str [facility] Start: 05-12-2022 Hemolytic complement CH50 level [facility] Work Phone: Start: 05-12-2022 [facility] Work Phone: Start: 05-12-2022 X-ray of both ankles XR ankle BI 2V [facility] Start: 05-12-2022 X-ray of both feet XR foot BI 2V [facility] Start: 05-12-2022 End: 05-12-2022 Patient encounter procedure Departed Clinical [facility] [address] Start: 04-18-2022 [facility] Work Phone: Start: 04-16-2022 Referral to Professor Of Religion [facility] Work Phone: Start: 04-16-2022 Referral to hooker up [facility] Work Phone: Start: 04-16-2022 Hospital admission [facility] Work Phone: Alkaline phosphatase - bone isoenzyme measurement [facility] Work Phone: Alkaline phosphatase [Enzymatic activity/volume] in Serum or Plasma [facility] Work Phone: Alkaline phosphatase isoenz panel - Serum or Plasma [facility] Work Phone: Blood chemistry [facility] Work Phone: Intestinal alkaline phosphatase measurement [facility] Work Phone: Patient Education [facility] Work Phone: Patient referral [facility] Work Phone: Immunizations Immunization Date Immunization Notes Care Provider Fa jerome 08-03-2021 influenza, injectabl e, quadrivalent, contains preservative Jaquelin Connell MD Work Phone: [facility] 600 DO Work Phone: 05-14-2020 influenza, injectabl e, quadrivalent, contains preservative Jaquelin Connell MD Work Phone: [place] [address] DO Work Phone: 2019 pneumococcal polysaccharide vaccine, 23 valluke Connell MD Work Phone: [place] [address] DO Work Phone: 08-01-2019 influenza, injectabl e, quadrivalent, contains preservative Jaquelin Connell MD Work Phone: [place] [address] DO Work Phone: 06-06-2018 pneumococcal conjuga te vaccine, 13 valluke Connell MD Work Phone: [place] [address] DO Work Phone: 05-29-2018 pneumococcal conjuga te vaccine, 13 valluke Connell MD Work Phone: [place] [address] DO Work Phone: 07-23-2016 influenza, seasonal, injectable, preservative free Jaquelin Connell MD Work Phone: [place] [address] DO Work Phone: 07-23-2016 pneumococcal polysaccharide vaccine, 23 valent Jaquelin Connell MD Work Phone: [facility] 600 DO Work Phone: 05-18-2014 tetanus and diphther ia toxoids, adsorbed, preservative free, for adult use (5 Lf of tetanus toxoid and 2 Lf of diphtheria toxoid) Jaquelin Connell MD Work Phone: [place] [address] DO Work Phone: Payers Date Payer Category Payer Unknown [id number] 2022 Self-pay [id number] 2022 Private Health Insurance [id number] 2021 Medicare [id number] 1959 Medicare [id number] 1950 Unknown [id number] 1950 Unknown [id number] 1950 Unknown [id number] [id number] 1950 Unknown [id number] [id number] 1950 Unknown [id number] [id number] 1950 Unknown [id number] [id number] 1950 Unknown [id number] [id number] Medicaid [place] [employer] [id number] Unknown Unknown [place] YOHAN [id number] Unknown [id number] [id number] Unknown [id number] [id number] Unknown [id number] [id number] Unknown [id number] [id number] Unknown [id number] [id number] Unknown [id number] Social History Date Type Detail Facility Sex Assigned At [facility] [email or web address] Other Start: 04-17-2022 End: 11-06-2023 Tobacco smoking status NHIS Smoker (finding) [facility] Start: 1950 Sex Assigned At Female F [facility] Occasional alcohol use Occasional alcohol use CI-Rohsxufkkg-Njctlqty 250 DO Work Phone: Comment on above: 1 Pot of coffee amy y; 1 PPD; Goals Date Patient Goal Desired Activity /State Functional Status Date Assessment Result Facility 04-18-2022 Functional status Patient is Pro gressing Toward Baseline [facility] Work Phone: Mental Status Date Assessment Result Facility 04-18-2022 Cognitive function Cognitive Sta tus Patient at Baseline [facility] Work Phone: Clinical Notes 01-29-2022 to 09-22-2022 [...] all NSAIDs due to advanced kidney disease [employer] Other 08-07-2022 Consult note Author Jaquelin Connell [facility] April 18, 2022 9:21am Note Date/Time April 17, 2022 1:2 5pm [facility] EN[facility] [address] [place] [address] Cardiology Consult Note Signed Patient: Corie Courtney MR#: [id number] : 1950 Acct:[id number] Age/Sex: 71 / F Adm Date: 2 Loc: Room: [address] [place] [address] Type: ADM INOo Attending Dr: Parvin Batres MD Copies to: MD Delfina Block,[employer]X H[employer]SE HITCH DRIVER,CURING ROOM SUPERVISOR Jaquelin Connell MD~ Cardiology HPI History of [...] DAILY 04/16/22 [History Confirmed 04/16/22] glucosamine 750 kq-orsanh-zvi 2-C 30 mg-D3 1,000 unit-jane 1 mg tablet (Evcrcyylznw-Inohaccwxui-NGI + vitD) 1 tab PO DAILY 04/16/22 [...] Lymph # (Auto) 2.8 1.9 (1.00-4.8) x10E3/uL Ellis # (Auto) 0.8 0.6 (0.0-0.8) x10E3/uL Eos [...] signed by MD Jaquelin Connell> 04/18/22 0921 [facility] Work Phone: 1(198) 916-224808-07-2022 Progress note Author Parvin Batres [facility] April 18, 2022 9:07am Note Date/Time April 18, 2022 9:0 2am [facility] [address] [place] [address] Hospitalist Progress Note Signed Patient: Corie Courtney MR#: [id number] : 1950 Acct:[id number] Age/Sex: 71 / F Adm Date: 2 Loc: Room: [address] [place] [address] Type: ADM INOo Attending Dr: Parvin Batres [...] 04/17/22 09:00 04/18/22 08:41 Aspirin 81 Mg Tablet.Dr PO 04/17/23 08:59 81 mg DAILY MERRY [...] signed by Parvin Batres MD> 04/18/22 0907 [facility] Work Phone: 1(309) 330-303108-06-2022 Progress note Author Parvin Batres [facility] April 17, 2022 9:03am Note Date/Time April 17, 2022 8:5 6am [facility] ENTER [address] [place] [address] Hospitalist Progress Note Signed Patient: Corie Courtney MR#: [id number] : 1950 Acct:[id number] Age/Sex: 71 / F Adm Date: 2 Loc: Room: [address] [place] [address] Type: ADM INOo Attending Dr: Parvin Batres [...] Q4H PRN Hypertension Ondansetron HCl 4 mg 08/05/22 21:21 Ondansetron 4 Mg/2 Ml Vial IV-PUSH [...] signed by Parvin Batres MD> 04/17/22 0903 [facility] Work Phone: 1(800) 335-931308-05-2022 History and physical note Author Josué Alvarez [facility] April 16, 2022 9:42pm Note Date/Time April 16, 2022 9:4 0pm [facility] [address] [place] [address] Hospitalist H&P Signed Patient: Corie Courtney MR#: [id number] : 1950 Acct:[id number] Age/Sex: 71 / F Adm Date: 2 Loc: Room: [address] [place] [address] Type: ADM INOo Attending Dr: Josué Alvarez DO Copies to: Delfina Trevino APRN,CURING ROOM SUPERVISOR Josué Alvarez, ~ HPI DATE OF EXAMINATION: 04/16/22 CHIEF COMPLAINT: [...] % (Auto) 30.4 % (.) 04/16/22 18:10 Ellis % (Auto) 8.6 % (.) 04/16/22 18:10 Eos % (Auto) 3.7 % (.) 04/16/22 18:10 Baso % (Auto) 1.4 % (.) 04/16/22 18:10 Neut # (Auto) 5.1 x10E3/uL (1.8-7.7) 04/16/22 18:10 Lymph # (Auto) 2.8 x10E3/uL (1.00-4.8) 04/16/22 18:10 Ellis # (Auto) 0.8 x10E3/uL (0.0-0.8) 04/16/22 18:10 [...] <Electronically signed by Josué Alvarez DO> 04/16/222141 [facility] Work Phone: 1(909) 199-746306-23-2022 History of Present illness Narrative* The patient [...] follow-up on as-needed basis on her request [employer] DO Work Phone: [phone]) 623-103005-20-2022 Evaluation note* Encounter Date Diagnosis Assessment Notes [...] January, Other Ness's cyst material was printed [employer] Other Chief complaint Narrative - ReportedCORIE COURTNEY is being seen for a consultation for POC.[employer]nd[employer]ouqbco[employer] DO Work Phone: Consult note Author Jaquelin Connell [facility] April 18, 2022 9:21am Note Date/Time April 17, 2022 1:2 5pm [facility] EN[facility] [address] [place] [address] Cardiology Consult Note Signed Patient: Corie Courtney MR#: [id number] : 1950 Acct:[id number] Age/Sex: 71 / F Adm Date: 2 Loc: Room: [address] [place] [address] Type: ADM INOo Attending Dr: Parvin Batres MD Copies to: MD Delfina Block APRN,CURING ROOM SUPERVISOR Jaquelin Connell MD~ Cardiology HPI History of [...] DAILY 04/16/22 [History Confirmed 04/16/22] glucosamine 750 oo-uyqqru-fdo 2-C 30 mg-D3 1,000 unit-jane 1 mg tablet (Tqqzdicfgzs-Gkbucuhumul-NHI + vitD) 1 tab PO DAILY 04/16/22 [...] Lymph # (Auto) 2.8 1.9 (1.00-4.8) x10E3/uL Ellis # (Auto) 0.8 0.6 (0.0-0.8) x10E3/uL Eos [...] signed by MD Jaquelin Connell> 04/18/22 0921 [facility] Work Phone: Discharge summary Author Parvin Batres [facility] April 18, 2022 5:54pm Note Date/Time April 18, 2022 5:5 4pm [facility] EN[facility] [address] [place] [address] Discharge Summary Signed Patient: Corie Courtney MR#: [id number] : 1950 Acct:[id number] Age/Sex: 71 / F Adm Date: 2 Loc: Room: [address] [place] [address]: Parvin Batres MD Copies to: MD Delfina Block,SIX HORSE HITCH DRIVER,CURING ROOM SUPERVISOR~ Providers Date of Discharge: 04/18/22 Discharging Provider: [...] % (Auto) 65.1, Lymph % (Auto) 22.3, Ellis % (Auto) 8.3, Eos % (Auto) 3.3, Baso % (Auto) 1.0, Neut # (Auto) 5.3, Lymph # (Auto) 1.8, Ellis # (Auto) 0.7, Eos # (Auto) 0.3, [...] BY MOUTH EVERY DAY FOR 90 DAYS Rlwdfayo-Ztvazf-ELV with vit D 750-30-1,000-1 lw-sn-dddx-mg Tablet 1 tab PO DAILY ibuprofen 200 [...] to confirm date/time. ) Delfina Trevino APRN, TEST MAN-C [Primary Care Provider] - (Call office on Tuesday to schedule follow-up with your Primary Care Provider in 3-5 days. ) Documented By: Parvin Batres MD 04/18/221752 Signed By: <Electronically signed by Parvin Batres MD> 04/18/221753 [facility] Work Phone: Evaluation note* Diagnosis Onset Date Resolution Status Acute diastolic heart failure acute COPD (chronic obstructive pulmonary disease) acute Edema, peripheral acute Elevated blood pressure reading acute Elevated troponin acute History of stroke acute Hyperlipidemia acute Hypertension acute Leg swelling acute Myocardial infarction type 2 acute Tobacco abuse acute [facility] Work Phone: Evaluation noteNo assessment information available [facility] Work Phone: Evaluation noteNort [employer] Other History and physical note Author Josué Alvarez [facility] April 16, 2022 9:42pm Note Date/Time April 16, 2022 9:4 0pm [facility] [address] [place] [address] Hospitalist H&P Signed Patient: Corie Courtney MR#: [id number] : 1950 Acct:[id number] Age/Sex: 71 / F Adm Date: 2 Loc: 3T Room: [address] [place] [address] Type: ADM INOo Attending Dr: Josué Alvarez DO Copies to: Delfina Trevino APRN,CURING ROOM SUPERVISOR Josué Alvarez, ~ HPI DATE OF EXAMINATION: 04/16/22 CHIEF COMPLAINT: [...] Vaccinated for COVID-19?: No Medical History (Updated 08/05/22 @ 21:37 by Josué Alvarez DO) COPD [...] % (Auto) 30.4 % (.) 04/16/22 18:10 Ellis % (Auto) 8.6 % (.) 04/16/22 18:10 Eos % (Auto) 3.7 % (.) 04/16/22 18:10 Baso % (Auto) 1.4 % (.) 04/16/22 18:10 Neut # (Auto) 5.1 x10E3/uL (1.8-7.7) 04/16/22 18:10 Lymph # (Auto) 2.8 x10E3/uL (1.00-4.8) 04/16/22 18:10 Ellis # (Auto) 0.8 x10E3/uL (0.0-0.8) 04/16/22 18:10 [...] 04/16/222129 Signed By: <Electronically signed by Josué Alvarez, > 04/16/222141 [facility] Work Phone: Hisrtrp general Narrative - Reported* Type Description Date Medical History HTN Medical History hypercholesterolemia Medical History Arthritis Surgical History Left Foot Surgery Hospitalization History Stroke 2019 [facility] [email or web address] Other History general Narrative - Reported* Type [...] History SEE ABOVE Hospitalization History EDEMA 2021 [employer] Other Hispfed general [facility] [email or web address] Other Hospital Discharge instructions Additional Instructions Increase salt in your diet Increased pain with vegetables Follow-up with PCP call tomorrow for appointment Please return here if you develop any dizziness, chest pain, shortness of breath or any other concerns[facility] Work Phone: Progress note Author Parvin Batres [facility] April 17, 2022 9:03am Note Date/Time April 17, 2022 8:5 6am [facility] [address] [place] [address] Hospitalist Progress Note Signed Patient: Corie Courtney MR#: [id number] : 1950 Acct:[id number] Age/Sex: 71 / F Adm Date: 2 Loc: Room: [address] [place] [address] Type: ADM INOo Attending Dr: Parvin Batres [...] signed by Parvin Batres MD> 04/17/22 0903 [facility] Work Phone: Progress note Author Parvin Batres [facility] April 18, 2022 9:07am Note Date/Time April 18, 2022 9:0 2am [facility] [address] [place] [address] Hospitalist Progress Note Signed Patient: Corie Courtney MR#: [id number] : 1950 Acct:[id number] Age/Sex: 71 / F Adm Date: 2 Loc: Room: [address] [place] [address] Type: ADM INOo Attending Dr: Parvin Batres [...] 04/17/22 09:00 04/18/22 08:41 Aspirin 81 Mg Tablet.Dr PO 04/17/23 08:59 81 mg DAILY MERRY [...] signed by Parvin Batres MD> 04/18/22 0907 [facility] Work Phone: Progress note Author Jaquelin Connell [facility] April 18, 2022 12:03pm Note Date/Time April 18, 2022 12: 03pm [facility] [address] [place] [address] Cardiology Progress Note Signed Patient: Corie Courtney MR#: [id number] : 1950 Acct:[id number] Age/Sex: 71 / F Adm Date: 2 Loc: Room: [address] [place] [address] Type: ADM INOo Attending Dr: Parvin Batres [...] Labs: Laboratory Results - last 24 hr 0804/18/22 04/18/22 16:10 05:56 05:56 Corrected WBC 8.1 Uncorrected WBC Count 8.1 RBC 3.63 Hgb 9.2 L Hct 27.5 L MCV 75.8 L MCH 25.4 MCHC 33.5 RDW 16.4 H Plt Count 714 H MPV 6.9 Neut % (Auto) 65.1 Lymph % (Auto) 22.3 Ellis % (Auto) 8.3 Eos % (Auto) 3.3 Baso % (Auto) 1.0 Neut # (Auto) 5.3 Lymph # (Auto) 1.8 Ellis # (Auto) 0.7 Eos # (Auto) 0.3 [...] Cloudy A Urine pH 7.0 Ur Specific [place] 1.013 Urine Protein Negative Urine Glucose (UA) [...] signed by MD Jaquelin Connell> 04/18/22 1203 [facility] Work Phone: Summary Purpose Family History No Family History Records Found Relationship Condition Age at Onset Recorded Date/T brenda brother Rheumatoid aortitis Unknown Suicidal intent Unknown Not Specified Heart disease Unknown Unknown Family Member Name Dates Details FH: CABG (coronary artery by pass surgery): Mother(V17.3, Z82.49) Status:Active Relationship Condition Age at Onset Recorded Date/T brenda brother Rheumatoid aortitis Unknown Suicidal intent Unknown Not Specified Heart disease Unknown brother Family history of mental disorder Unknown father Unknown History of stroke Unknown family member Unknown Not Specified Unknown Heart disease Unknown sister Family history of mental disorder Unknown Advance Directives No Advanced Directives Records Found Advance Directive Response Recorded Date/ Time Advance Directives No March 24 10:14am Advance Directive Response Recorded Date/ Time Advance Directives No March 24 9:14am Chief Complaint and Reason for Visit Chief [...] Complaint Hip Pain i50.32 Z78.0 J44.9 COPD Chief Complaint Essential (primary) hypertension Chief Complaint Essential (primary) hypertension abnormal labs Additional Source Comments INFORMATION SOURCE (unrecogn ized section and content) DATE CREATED AUTHOR 04/20/2019 [employer] [facility] DATE CREATED AUTHOR AUTHOR'S ORGANIZ ATION 03/05/2023 [employer] DATE CREATED AUTHOR AUTHOR'S ORGANIZ ATION 07/09/2023 [facility] DATE CREATED AUTHOR AUTHOR'S ORGANIZ ATION 11/10/2023 [facility] DATE CREATED AUTHOR AUTHOR'S ORGANTONO ATION 11/18/2023 [facility] REASON FOR VISIT (unrecogniz ed section and content) LEFT KNEE PAIN X2 MONTHSRENA L CHRONIC RENAL INSUFFIENCY Care Teams (unrecognized sec tion and content) Team Status: Inactive Member Role Status Dates Delfina Trevino APRN TEST [employer]-C Primary Care Provide r Active Mark Avila MD Attending Provider Active Team Status: Inactive Member Role Status Dates Delfina Trevino APRN TEST MAN-C Primary Care Provide r Active Wilman Ramirez [...] Member Role Status Dates Delfina Trevino APRN TEST MAN-C Primary Care Provide r Active Team Status: Inactive Member Role Status Dates Delfina Trevino APRN TEST [employer]-C Primary Care Provide r Active Layo Sheridan APRN Emergency Provider Active Team Status: Inactive Member Role Status Dates Delfina Trevino APRN TEST MAN-C Primar y Care Provider, Attending Provider Active Jerica Carrasco DO Referring Provider Active Team Status: Inactive Member Role Status Dates Delfina Trevino APRN TEST MAN-C Primar y Care Provider, Attending Provider Active Team Status: Inactive Member Role Status Dates Delfina Trevino APRN TEST MAN-C Attending Provider Active Start: October End: November 02, 2023 Team Status: Active Member Role Status Dates Services Family Health Primary Care Provider Active Team Status: Inactive Member Role Status Dates Services Family Health Primary Care Provider Active Start: November 06, 2023 End: November 06, 2023 Enedelia Gordon APRN Emergency Provider Active Start: November 06, 2023 End: November 06, 2023 Goals (unrecognized section and content) Goals may [...] BE BASED ON THE PRIMARY CLINICAL RECORDS. [facility] provides no warranty or guarantee of the accuracy or completeness of information in this document.
--- NOTE | 2024-01-26 11:48 | PM.CN ---
Consult Note: HPI Data of Consult Patient: known to practice within the last 3 years Consult date: 10/31/23 Requesting Physician: Roxana Jj NP Primary Care Provider: Non-Staff Physician, Consult Narrative Reason for consult: right knee pain Narrative: 73yof who presents for assessment. chronic right hip and right knee pain, awaiting right hip replacement when bone density improves on prolia e3deoviv. has engaged in >6 weeks of provider directed home exercises, with minimal benefit. uses butrans patch with mild improvement. denies adverse med side effects. Pain 10/10 today aching stabbing increasing with standing walking activity, improves with sitting/lying. Reports prior right knee durolane injection provided >50% improvement in pain and functional ability greater than 3 months, would like to repeat. cc:: CC: Roxana Jj NP Review of Systems ROS Status of ROS 10 or more systems reviewed and unremarkable except as noted in history and below Musculoskeletal Reports: back pain and joint pain PFSH PFS Medical History Basal cell carcinoma ?C44.91 - Basal cell carcinoma of skin, unspecified (ICD-10) Anxiety ?F41.9 - Anxiety disorder, unspecified (ICD-10) Kidney disease ?N28.9 - Disorder of kidney and ureter, unspecified (ICD-10) Osteoarthritis ?M19.90 - Unspecified osteoarthritis, unspecified site (ICD-10) Rheumatoid arthritis ?M06.9 - Rheumatoid arthritis, unspecified (ICD-10) CHF (congestive heart failure) ?I50.9 - Heart failure, unspecified (ICD-10) High cholesterol ?E78.00 - Pure hypercholesterolemia, unspecified (ICD-10) COPD (chronic obstructive pulmonary disease) ?J44.9 - Chronic obstructive pulmonary disease, unspecified (ICD-10) Arthritis of right hip ?M16.11 - Unilateral primary osteoarthritis, right hip (ICD-10) Surgical History H/O foot surgery ?Z98.890 - Other specified postprocedural states (ICD-10) History of section, classical ?Z98.891 - History of uterine scar from previous surgery (ICD-10) Meds Home Medications and Allergies Home Medications ?Medication ?Instructions ?Recorded ?Confirmed ?Type acetaminophen 325 mg capsule 1,300 mg PO BID PRN pain 05/24/23 10/17/23 History (Tylenol) albuterol sulfate 90 mcg/actuation 1 inh inhalation Q6H 05/24/23 10/17/23 History aerosol inhaler atorvastatin 20 mg tablet 20 mg PO DAILY 05/24/23 10/17/23 History buspirone 5 mg tablet 5 mg PO BID 05/24/23 10/17/23 History cholecalciferol (vitamin D3) 25 25 mcg PO DAILY 05/24/23 10/17/23 History mcg (1,000 unit) capsule furosemide 20 mg tablet 20 mg PO BID 05/24/23 10/17/23 History lisinopril 2.5 mg tablet 2.5 mg PO DAILY 05/24/23 10/17/23 History metoprolol tartrate 25 mg tablet 25 mg PO BID 05/24/23 10/17/23 History multivitamin 1 tab PO DAILY 05/24/23 10/17/23 History buprenorphine 5 mcg/hour weekly 1 patch transdermal Q7D #4 ea 06/22/23 Rx transdermal patch (Butrans) buprenorphine 5 mcg/hour weekly 1 patch transdermal Q7D #4 ea 11/23/23 Rx transdermal patch (Butrans) Allergies Allergy/AdvReac Type Severity Reaction Status Date / Time No Known Drug Allergies Allergy Verified 10/17/23 09:55 Exam Constitutional Documenting provider has reviewed patient's vital signs: yes Common normals: no apparent distress, oriented x3, healthy appearing, alert and well nourished General appearance: cooperative HENOR Common normals: normocephalic, hearing grossly normal bilaterally and moist oral mucous membranes Head and scalp: normocephalic Eye Common normals: PERRL Pupil: PERRL Neck & C-Spine Common normals: full ROM General: normal visual inspection Chest Common normals: inspection of chest normal Respiratory Common normals: normal respiratory effort, no retractions and no use of accessory muscles Effort & inspection: able to speak in complete sentences Back & Pelvis Other: Tenderness to palpation in right hip. Pain elicited with flexion, extension, external rotation of right hip. Facet loading maneuvers positive bilaterally. Pain with flexion, extension, lateral rotation of lumbar spine. Extremity Right lower extremity: hip joint and knee joint Other: enlarged diameter of right knee, pain with weight bearing and flexion and extension no warmth redness or swelling Neuro Common normals: oriented x3, CN's II-XII intact bilaterally, moves all extremities, no focal motor deficits, no sensory deficits noted and deep tendon reflexes 2+ bilaterally Sensorium/orientation: alert Motor exam: strength 5/5 throughout and no movement abnormalities noted Psych Common normals: mental status grossly normal, thought process normal, cooperative, affect normal, speech normal and activity/motor behavior normal Speech: normal speech Thought process: normal thought process Results Additional Findings Additional findings: If on a controlled substance or opioids, I have checked an [place]AR[place] report on this patient and there are no aberrancies noted in the prescribing history.??If on a controlled substance or opioid a drug screen was completed and reviewed within the last year, and if there has not been a drug screen completed we ordered one today to monitor higher risk, state monitored pain medication use. As part of providing excellent, safe, comprehensive care, the following was completed at our patient's visit: 1. A medication reconciliation and review to ensure accurate knowledge of current/active medications, including asking our patients to inform us about any necd-[id number] medications or herbal remedies/nutritional supplements/alternative remedies. 2. A review to specifically ensure our patients have had annual screening for screening for depression, screening for tobacco use, and screening for unhealthy alcohol use. For concerning screenings had a discussion with the patient, provided patient education, and recommended follow-up with primary care provider when appropriate. If patient noted with a risk of falling, they received education on strength, gait, and balance training to prevent future risk of falling. Assessment and Plan Assessment and Plan (1) Osteoarthritis of right knee: Qualifiers: Osteoarthritis type: primary Qualified Code(s): M17.11 - Unilateral primary osteoarthritis, right knee (2) Osteoarthritis of right hip: Qualifiers: Osteoarthritis type: primary Qualified Code(s): M16.11 - Unilateral primary osteoarthritis, right hip (3) Lumbago: (4) Osteoporosis: (5) Chronic prescription opiate use: Assessment and Plan: I feel these medications are improving the patient's quality of life and allow them to tolerate activities of daily living as well as participate in recreational activity.? The patient does not report intolerable side effects. The patient is NOT opioid naive and non-pharmacologic and non-opioid treatment has failed to significantly relieve the patient's pain and improve functionality. The patient has a diagnosis that is related to a somatic or visceral pain etiology. ? ?? I reviewed with the patient the potential risks and side effects with the use of? opioid medications including but not limited to respiratory depression,? sedation, and even . I verified the patient has access to naloxone should? these effects occur. I advised the patient to avoid the use of any other? sedation substances including alcohol, THC, and benzodiazepines while? taking opioid medications due to the risk of compounding side effects and? detrimental outcomes. I reviewed the EMERGENCY VEHICLE TECHNICIAN, pain treatment agreement, urine? drug screen, and opioid start talking forms. The patient was advised to let? their family know they had Naloxone in case they would need to administer? the medication.? ?? A drug screen was completed within the last year, and no aberrancies were noted regarding their use of controlled substances. The patient understands they are subject to the terms and conditions of the pain contract that they have signed. ? ?? I have checked an [place]AR[place] report on this patient today and there are no aberrancies noted in the prescribing history.? (6) Chronic pain syndrome: Assessment and Plan: + depression screening (7) Depression: Assessment and Plan: denies SI/SH Plan repeat right knee durolane injection with Dr Rodriguez for chronic right knee pain and OA unresponsive to corticosteroid injections continue butrans 5mcg/hr patch weekly start duloxetine 30 mg daily, risks vs benefits and side effects discussed. goals to improve mood and improve OA pain recommend psychiatry/counseling for CPS and positive depression screening, patient declines continue HEP as tolerated continue prolia and f/u with orthopedics f/u with myself 6 week telephone call to evaluate duloxetine dose/effectiveness f/u in office for repeat right knee injection
== END 2024-01-26 10:50 | disposition home or self-care (01) ==
LOC: PM 10:49
PROVIDERS: Visit Provider Nurse Practitioner
DX: M17.11 Unilateral primary osteoarthritis, right knee (principal); M16.11 Unilateral primary osteoarthritis, right hip; M54.50 Low back pain, unspecified; M81.0 Age-related osteoporosis without current pathological fracture; Z79.891 Long term (current) use of opiate analgesic; G89.4 Chronic pain syndrome; F32.A Depression, unspecified
CPT/HCPCS: G0463

== ENCOUNTER 2024-05-07 12:44 | Outpatient (OUT) | payer MEDICARE, SELFPAY ==
--- NOTE | 2024-05-07 13:20 | P.CN_ITS ---
Consult Note: HPI Data of Consult Patient: known to practice within the last 3 years Consult date: 05/07/24 Requesting Physician: Serge Rodriguez MD Primary Care Provider: Non-Staff Physician, Consult Narrative Reason for consult: right knee pain Narrative: 73yof who presents for assessment. continues to have right knee pain, would like to proceed with right knee injection. continues to use butrans patch 5mcg/hr, which helps mildly. denies adverse med side effects. cc:: CC: Serge Rodriguez MD Review of Systems ROS Status of ROS 10 or more systems reviewed and unremark able except as noted in history and below PFSH PFSH Medical History Basal cell carcinoma ?C44.91 - Basal cell carcinoma of skin, unspecified (ICD-10) Anxiety ?F41.9 - Anxiety disorder, unspecified (ICD-10) Kidney disease ?N28.9 - Disorder of kidney and ureter, unspecified (ICD-10) Osteoarthritis ?M19.90 - Unspecified osteoarthritis, unspecified site (ICD-10) Rheumatoid arthritis ?M06.9 - Rheumatoid arthritis, unspecified (ICD-10) CHF (congestive heart failure) ?I50.9 - Heart failure, unspecified (ICD-10) High cholesterol ?E78.00 - Pure hypercholesterolemia, unspecified (ICD-10) COPD (chronic obstructive pulmonary disease) ?J44.9 - Chronic obstructive pulmonary disease, unspecified (ICD-10) Arthritis of right hip ?M16.11 - Unilateral primary osteoarthritis, right hip (ICD-10) Surgical History H/O foot surgery ?Z98.890 - Other specified postprocedural states (ICD-10) History of section, classical ?Z98.891 - History of uterine scar from previous surgery (ICD-10) Meds Home Medications and Allergies Home Medications ?Medication ?Instructions ?Recorded ?Confirmed ?Type acetaminophen 325 mg capsule 1,300 mg PO BID PRN pain 05/24/23 10/17/23 History (Tylenol) albuterol sulfate 90 mcg/actuation 1 inh inhalation Q6H 05/24/23 10/17/23 History aerosol inhaler atorvastatin 20 mg tablet 20 mg PO DAILY 05/24/23 10/17/23 History buspirone 5 mg tablet 5 mg PO BID 05/24/23 10/17/23 History cholecalciferol (vitamin D3) 25 25 mcg PO DAILY 05/24/23 10/17/23 History mcg (1,000 unit) capsule furosemide 20 mg tablet 20 mg PO BID 05/24/23 10/17/23 History lisinopril 2.5 mg tablet 2.5 mg PO DAILY 05/24/23 10/17/23 History metoprolol tartrate 25 mg tablet 25 mg PO BID 05/24/23 10/17/23 History multivitamin 1 tab PO DAILY 05/24/23 10/17/23 History buprenorphine 5 mcg/hour weekly 1 patch transdermal Q7D #4 ea 06/22/23 Rx transdermal patch (Butrans) buprenorphine 5 mcg/hour weekly 1 patch transdermal Q7D #4 ea 11/23/23 Rx transdermal patch (Butrans) buprenorphine 5 mcg/hour weekly 1 patch transdermal Q7D #4 ea 02/22/24 Rx transdermal patch (Butrans) buprenorphine 5 mcg/hour weekly 1 patch transdermal QWEEK #4 ea 03/26/24 Rx transdermal patch (Butrans) buprenorphine 5 mcg/hour weekly 1 patch transdermal Q7D #4 ea 04/26/24 Rx transdermal patch (Butrans) Allergies Allergy/AdvReac Type Severity Reaction Status Date / Time No Known Drug Allergies Allergy Verified 10/17/23 09:55 Exam Narrative Exam Narrative: Psych-alert and oriented x 3.? Attentive and appropriate, constitutionally normal, displays normal mood and affect per situation.? There are no obvious deficits in memory, reasoning, or intellect. Extremities-lower extremities are warm with minimal edema and palpable pulses. Knee-examination of the right knee reveals tenderness to palpation over the superior, inferior, lateral, and medial aspect of the knee.? Some swelling is noted without erythema. Pain is elicited with flexion and extension of the knee both actively and passively.? Some grinding is noted with these motions.? There is no notable ligamental laxity or instability.? Coordination remains intact.? Gait remains antalgic. Assessment and Plan Assessment and Plan (1) Osteoarthritis of right knee: Qualifiers: Osteoarthritis type: primary Qualified Code(s): M17.11 - Unilateral primary osteoarthritis, right knee Plan 73yof who presents for assessment. failed conservative measures. given symptoms and exam, will proceed with right knee injection. she is in agreement. meds reviewed. will increase butrans patch to 7.5 mcg/hr. she expressed understanding. follow up in 6-8 weeks. Procedure: Right knee injection Medications: Hyaluronic acid (durolane) I explained the details of the procedure to the patient including the risks, benefits and alternatives. We had an informed discussion and the patient verbalized understanding and signed the consent form. All questions were answered appropriately.? A time out was performed.? After obtaining a comfortable seated position, the right knee was prepped with alcohol x3. A syringe containing the above medication was attached to a 25 guage, 1.5 inch needle under strict aseptic technique. The lateral tibial plateau was palpated.? The needle was then advanced through the subcutaneous tissue in a medial and superior direction towards the joint space.? The contents of the syringe were gently injected without any resistance. The needle was removed and pressure was applied to the injection site to decrease the incidence of ecchymosis and hematoma formation.? A sterile bandage was applied.
== END 2024-05-07 12:45 | disposition home or self-care (01) ==
LOC: PM 12:45
PROVIDERS: Visit Provider Anesthesiology
DX: M17.11 Unilateral primary osteoarthritis, right knee (principal)
CPT/HCPCS: 20610; J7318

== ENCOUNTER 2024-08-15 12:41 | Outpatient (OUT) | payer MEDICARE, SELFPAY ==
--- NOTE | 2024-08-15 13:18 | PM.CN ---
Consult Note: HPI Data of Consult Patient: known to practice within the last 3 years Consult date: 10/31/23 Requesting Physician: Roxana Jj NP Primary Care Provider: Non-Staff Physician, Consult Narrative Reason for consult: right knee pain Narrative: [id number] who presents for assessment. chronic right hip and right knee pain, awaiting right hip replacement when bone density improves on prolia [id number]. has engaged in >6 weeks of provider directed home exercises, with minimal benefit. uses butrans patch 7.5mcg/hr with mild improvement. denies adverse med side effects. Pain 8/10 today aching stabbing increasing with standing walking activity, improves with sitting/lying. pt has not been regularly utilizing butrans. cc:: CC: Roxana Jj NP Review of Systems ROS Status of ROS 10 or more systems reviewed and unremarkable except as noted in history and below Musculoskeletal Reports: back pain and joint pain PFSH PFSH Medical History Basal cell carcinoma ?C44.91 - Basal cell carcinoma of skin, unspecified (ICD-10) Anxiety ?F41.9 - Anxiety disorder, unspecified (ICD-10) Kidney disease ?N28.9 - Disorder of kidney and ureter, unspecified (ICD-10) Osteoarthritis ?M19.90 - Unspecified osteoarthritis, unspecified site (ICD-10) Rheumatoid arthritis ?M06.9 - Rheumatoid arthritis, unspecified (ICD-10) CHF (congestive heart failure) ?I50.9 - Heart failure, unspecified (ICD-10) High cholesterol ?E78.00 - Pure hypercholesterolemia, unspecified (ICD-10) COPD (chronic obstructive pulmonary disease) ?J44.9 - Chronic obstructive pulmonary disease, unspecified (ICD-10) Arthritis of right hip ?M16.11 - Unilateral primary osteoarthritis, right hip (ICD-10) Surgical History H/O foot surgery ?Z98.890 - Other specified postprocedural states (ICD-10) History of section, classical ?Z98.891 - History of uterine scar from previous surgery (ICD-10) Meds Home Medications and Allergies Home Medications ?Medication ?Instructions ?Recorded ?Confirmed ?Type acetaminophen 325 mg capsule 1,300 mg PO BID PRN pain 05/24/23 10/17/23 History (Tylenol) albuterol sulfate 90 mcg/actuation 1 inh inhalation Q6H 05/24/23 10/17/23 History aerosol inhaler atorvastatin 20 mg tablet 20 mg PO DAILY 05/24/23 10/17/23 History buspirone 5 mg tablet 5 mg PO BID 05/24/23 10/17/23 History cholecalciferol (vitamin D3) 25 25 mcg PO DAILY 05/24/23 10/17/23 History mcg (1,000 unit) capsule furosemide 20 mg tablet 20 mg PO BID 05/24/23 10/17/23 History lisinopril 2.5 mg tablet 2.5 mg PO DAILY 05/24/23 10/17/23 History metoprolol tartrate 25 mg tablet 25 mg PO BID 05/24/23 10/17/23 History multivitamin 1 tab PO DAILY 05/24/23 10/17/23 History buprenorphine 5 mcg/hour weekly 1 patch transdermal Q7D #4 ea 06/22/23 Rx transdermal patch (Butrans) buprenorphine 5 mcg/hour weekly 1 patch transdermal Q7D #4 ea 11/23/23 Rx transdermal patch (Butrans) buprenorphine 5 mcg/hour weekly 1 patch transdermal Q7D #4 ea 02/22/24 Rx transdermal patch (Butrans) buprenorphine 5 mcg/hour weekly 1 patch transdermal QWEEK #4 ea 03/26/24 Rx transdermal patch (Butrans) buprenorphine 5 mcg/hour weekly 1 patch transdermal Q7D #4 ea 04/26/24 Rx transdermal patch (Butrans) buprenorphine 7.5 mcg/hour weekly 1 patch transdermal Q7D #4 ea 05/07/24 Rx transdermal patch (Butrans) buprenorphine 7.5 mcg/hour weekly 1 patch transdermal Q7D #4 ea 07/02/24 Rx transdermal patch (Butrans) Allergies Allergy/AdvReac Type Severity Reaction Status Date / Time No Known Drug Allergies Allergy Verified 10/17/23 09:55 Exam Constitutional Documenting provider has reviewed patient's vital signs: yes Common normals: no apparent distress, oriented x3, healthy appearing, alert and well nourished General appearance: cooperative HENMT Common normals: normocephalic, hearing grossly normal bilaterally and moist oral mucous membranes Head and scalp: normocephalic Eye Common normals: PERRL Pupil: PERRL Neck & C-Spine Common normals: full ROM General: normal visual inspection Chest Common normals: inspection of chest normal Respiratory Common normals: normal respiratory effort, no retractions and no use of accessory muscles Effort & inspection: able to speak in complete sentences Back & Pelvis Other: Tenderness to palpation in right hip. Pain elicited with flexion, extension, external rotation of right hip. Facet loading maneuvers positive bilaterally. Pain with flexion, extension, lateral rotation of lumbar spine. Extremity Right lower extremity: hip joint and knee joint Other: enlarged diameter of right knee, pain with weight bearing and flexion and extension no warmth redness or swelling Neuro Common normals: oriented x3, CN's II-XII intact bilaterally, moves all extremities, no focal motor deficits, no sensory deficits noted and deep tendon reflexes 2+ bilaterally Sensorium/orientation: alert Motor exam: strength 5/5 throughout and no movement abnormalities noted Psych Common normals: mental status grossly normal, thought process normal, cooperative, affect normal, speech normal and activity/motor behavior normal Speech: normal speech Thought process: normal thought process Results Additional Findings Additional findings: If on a controlled substance or opioids, I have checked an [place] report on this patient and there are no aberrancies noted in the prescribing history.??If on a controlled substance or opioid a drug screen was completed and reviewed within the last year, and if there has not been a drug screen completed we ordered one today to monitor higher risk, state monitored pain medication use. As part of providing excellent, safe, comprehensive care, the following was completed at our patient's visit: 1. A medication reconciliation and review to ensure accurate knowledge of current/active medications, including asking our patients to inform us about any [id number] medications or herbal remedies/nutritional supplements/alternative remedies. 2. A review to specifically ensure our patients have had annual screening for screening for depression, screening for tobacco use, and screening for unhealthy alcohol use. For concerning screenings had a discussion with the patient, provided patient education, and recommended follow-up with primary care provider when appropriate. If patient noted with a risk of falling, they received education on strength, gait, and balance training to prevent future risk of falling. Assessment and Plan Assessment and Plan (1) Osteoarthritis of right knee: Qualifiers: Osteoarthritis type: primary Qualified Code(s): M17.11 - Unilateral primary osteoarthritis, right knee (2) Osteoarthritis of right hip: Qualifiers: Osteoarthritis type: primary Qualified Code(s): M16.11 - Unilateral primary osteoarthritis, right hip (3) Lumbago: (4) Osteoporosis: (5) Chronic prescription opiate use: Assessment and Plan: I feel these medications are improving the patient's quality of life and allow them to tolerate activities of daily living as well as participate in recreational activity.? The patient does not report intolerable side effects. The patient is NOT opioid naive and non-pharmacologic and non-opioid treatment has failed to significantly relieve the patient's pain and improve functionality. The patient has a diagnosis that is related to a somatic or visceral pain etiology. ? ?? I reviewed with the patient the potential risks and side effects with the use of? opioid medications including but not limited to respiratory depression,? sedation, and even . I verified the patient has access to naloxone should? these effects occur. I advised the patient to avoid the use of any other? sedation substances including alcohol, THC, and benzodiazepines while? taking opioid medications due to the risk of compounding side effects and? detrimental outcomes. I reviewed the [facility] [employer], pain treatment agreement, urine? drug screen, and opioid start talking forms. The patient was advised to let? their family know they had Naloxone in case they would need to administer? the medication.? ?? A drug screen was completed within the last year, and no aberrancies were noted regarding their use of controlled substances. The patient understands they are subject to the terms and conditions of the pain contract that they have signed. ? ?? I have checked an [place] report on this patient today and there are no aberrancies noted in the prescribing history.? (6) Chronic pain syndrome: Assessment and Plan: + depression screening (7) Depression: Assessment and Plan: denies SI/SH Plan increase butrans 10mcg/hr q7days, risks vs benefits reviewed continue prolia and f/u with orthopedics pt to discuss weight loss with PCP, encouraged to utilize protein shakes to supplement meals f/u 2 months
== END 2024-08-15 12:42 | disposition home or self-care (01) ==
LOC: PM 12:42
PROVIDERS: Visit Provider Nurse Practitioner
DX: M17.11 Unilateral primary osteoarthritis, right knee (principal); M16.11 Unilateral primary osteoarthritis, right hip; M54.50 Low back pain, unspecified; M81.8 Other osteoporosis without current pathological fracture; Z79.891 Long term (current) use of opiate analgesic; G89.4 Chronic pain syndrome; F32.A Depression, unspecified
CPT/HCPCS: G0463

== ENCOUNTER 2024-10-24 13:40 | Outpatient (OUT) | payer MEDICARE, SELFPAY ==
--- OUTSIDE RECORDS SUMMARY | 2024-10-24 14:04 | XMS_ITS | CCD ---
Author Organization [facility] Care Team Providers Care Discharge Rn Name Role Phone MISC, DOCTOR Primary Care Unavailable GUME RODRIGUEZ Admitting GUME Padron Attending ROGERS [place] Consulting Unavailable GUME RODRIGUEZ Consulting Unavailira e Estelita Sheridan Unavailable IFTIKHAR Trevino Primary Care Provide r [...] Other Provider MD Parvin Batres Attending Provider [phone] MD Mark Avila Attending Provider [phone] Linda Fontanez Unavailable IFTIKHAR Trevino Primary Care Provide r IFTIKHAR Sheridan Emergency Provider [phone] IFTIKHAR Trevino Attending Provider DO Jerica Carrasco Referring Provider Delfina Trevino Unavailable Unavailable Unavailable Joy Saab Unavailable Belinda, . Delfina Thomas Primary Care Milly vailable Danilo, Dr. Willie Sepulveda Attending Unava ilable Belinda, Ms. Delfina Thomas Primary Care Milly vailable Ko, Dr. Hammer Referring Unavaila ble Trabdeirdre, Dr. Hammer Attending Unavaila ble Belinda, IFTIKHAR Mae Attending Provider [facility] Primary Care Provider IFTIKHAR Gordon Emergency Provider Gijamie PATEL, Andrius Vytautclemente Attending Unavailable Giedraitis , Andrius Vytautas Attending Unavailable Giedramarie PATEL, Andrius Vytautas Attending Unavailable Giedraitis , Andrius Vytautclemente Attending Unavailable [facility] Primary Care Provider IFTIKHAR Gordon Emergency Provider IFTIKHAR Trevino Attending Provider Delfina Trevino Attending Unavailab le Delfina Trevino Admitting Unavailab Jerica Frank Referring Unavailable Delfina Trevino Attending Unavailab le Delfina Trevino Admitting Unavailab le Delfina Trevino Primary Care Unavailab le Delfina Trevino Admitting Unavailab le SamanthaerDelfina mittal Primary Care Unavailab le Delfina Trevino Attending Unavailab le Delfina Trevino Admitting Unavailab le Delfina Trevino Primary Care Unavailab le Delfina Trevino Attending Delfina Ruffin Admitting [facility] Primary Care Unavaila Delfina Price Attending Enedelia Dorman Admitting Unavailable Enedelia Gordon Attending [facility] Primary Care Unavaila ble Allergies Allergy Classification Reported Allergen(s) Sabino rgy Type Date of Onset Reaction(s) Facility Acetaminophen (1 source) Acetaminophen Drug Allergy [facility] Repository guaiFENesin (1 source) guaiFENesin Drug Allergy [facility] Lincosamides (antibiotic) (1 source) Clindamycin Drug Allergy [facility] Opioid Agonists (1 source) oxyCODONE Drug Allergy [facility] Phenylephrine (1 source) Phenylephrine Drug Allergy [facility] Phenylpropanolamine (1 source) Phenylpropanolamine Drug Allergy [facility] Serotonin Reuptake Inhibitors (SSRIs) (2 sources) PARoxetine; Translations: [sertraline] Drug Allergy [facility] Repository (2 sources) Acetaminophen / oxyCODONE Drug Allergy Unknown Cold Crate Other (2 sources) Clindamycin Drug Allergy Unknown Cold Crate Other (2 sources) PARoxetine Drug Allergy Unknown Cold Crate Other (2 sources) Pseudoephedrine Drug Allergy Unknown [place]rate Other (2 sources) Sertraline Drug Allergy Unknown Cold Crate Other Medications Current Medications Medication Drug Class(es) Dates Sig (Normalized) Sig (Original) acetaminophen 325 mg oral tablet (1 source) take 1 tablet by mouth every four hours albuterol 0.83 mg/ml inhalation solution (20 sources) beta2-Adrenergic Agonist Start: 01-14-2020 Albuterol Sulfate [...] mg / clavulanate 125 mg oral tablet (9 sources) Penicillin-class Antibacterial Start: 04-18-2022 take 1 tablet by mouth twice daily Amoxicillin-Pot Clavulanate Active 1 TAB PO Twice daily 06 16April 18, 2022 12:00am Start: 04-18-2022 take 1 tablet by mariano th twice daily Amoxicillin-Pot Clavulanate Active 1 TAB PO Twice daily 06 16April 18, 2022 12:00am aspirin 81 mg delayed release oral tablet (10 sources) Platelet Aggregation Inhibitor, Nonsteroidal Anti-inflammatory Drug Start: 06-28-2020 take 81 mg by mouth once daily Aspirin Active 81 MG PO Daily June 28, 2020 12:00am Baby Aspirin Act amberly atorvastatin 20 mg oral tablet (13 sources) HMG-CoA Reductase Inhibitor Start: 06-27-2020 take 20 mg by mouth once daily Atorvastatin Active 20 MG PO Daily June 27, 2020 12:00am take 1 tablet by mouth every twe nty-four hours Atorvastatin Afshin cium Active cholecalciferol 0.025 mg oral tablet (9 sources) Vitamin D Start: 04-16-2022 take 1 tablet by mouth once daily Cholecalciferol (Vitamin D3) (Vitamin D3) 25 mcg (1,000 unit) tablet Active 25 MCG PO Daily April 16, 2022 12:00am furosemide 40 mg oral tablet (12 sources) Loop Diuretic Start: 04-18-2022 take 20 mg by mouth once daily Furosemide Active 20 MG PO Daily at 0800 April 18, 2022 12:00am Start: 04-18-2022 take 20 mg by mouth once daily Furosemide Active 20 MG PO Daily at 0800 April 18, 2022 12:00am take 1 tablet by mariano th every twenty-four hours Yoqramjq-Adodn-Daz 2-C-D3-Jane (Tkztrcud-Oacugw-Pev With Vit D) 750-30-1,000-1 mx-xq-kwjv-mg Tablet (9 sources) Start: 04-16-2022 take 1 tablet by mouth once daily Jyvzwfbi-Wkmtp-Qjy 2-C-D3-Jane (Ercekspc-Xohhxp-Tvk With Vit D) 750-30-1,000-1 di-gu-kdou-mg Tablet Active 1 TAB PO Daily April 15, 2022 11:00pm Start: 04-16-2022 take 1 tablet by mariano th once daily Xuporspb-Ubdsh-Knh 2-C-D3-Jane (Gncmnwfi-Krqarn-Hmw With Vit D) 750-30-1,000-1 fp-su-yfdb-mg Tablet Active 1 TAB PO Daily April 16, 2022 12:00am Glucosamine (1 source) Glucosamine Acti ve ibuprofen 200 mg oral tablet (9 sources) Nonsteroidal Anti-inflammatory Drug Start: 2 take 800 mg by mouth twice daily Ibuprofen Active 800 MG PO Twice daily April 16, 2022 12:00am lisinopril 2.5 mg oral tablet (20 sources) [...] Active metoprolol tartrate 25 mg oral tablet (12 sources) beta-Adrenergic Herber Start: 04-18-2022 take 25 [...] DO Active take 1 capsule by mo uth once daily Metoprolol Succinate 25 MG 1 [...] 12:34pm traMADol hydrochloride 50 mg oral tablet (6 sources) Opioid Agonist Start: 12-16-2022 take 50 mg by mouth every eight hours Tramadol Active 50 MG PO Q8H 10 December 16, 2022 12:00am 24 hr venlafaxine 75 mg extended [...] / HYDROcodone bitartrate 5 mg oral tablet (9 sources) Opioid Agonist Start: 07-21-2020 End: 10-09-2020 take 1 tablet by mouth every six hours Hydrocodone-Acetam inophen (Opal) 5-325 mg tablet Discontinued 1 TAB PO Q6H 10 2 July 21, 2020 October 09, 2020 8:45pm azithromycin 250 mg oral tablet (9 sources) Macrolide Antimicrobial Start: 06-28-2020 End: 07-21-2020 take 500 mg by mouth once daily Azithromycin Discontinued 500 MG PO Daily 8 June 28, 2020 12:00am July 21, 2020 12:34pm diclofenac sodium 75 mg delayed release oral tablet (20 sources) Nonsteroidal Anti-inflammatory Drug Start: 04-16-2022 End: 04-16-2022 take 75 mg by mouth once daily Diclofenac Sodium Discontinued 75 MG PO Daily April 16, 2022 12:00am April 16, 2022 10:46pm Start: 06-19-2019 End: 01-14-2020 take 75 mg by mouth once daily Diclofenac Sodium Disco ntinued 75 MG PO Daily June 19, 2019 12:00am January 14, 2020 7:56pm doxycycline hyclate 100 mg oral tablet (9 sources) Tetracycline-class Drug Start: 01-14-2020 End: 06-27-2020 [...] DO Active hydrocortisone 25 mg/ml topical cream (9 sources) Corticosteroid Start: 06-19-2019 End: 01-14-2020 Hydrocortisone Discontinued 1 APPLIC TOPICAL 2-3 TIMES PER DAY June 19, 2019 12:00am January 14, 2020 7:55pm Problems Active Problems Problem Classification Problem Date Documented Date Episodic/Chronic Acute cerebrovascular disease (9 sources) Cerebrovascular accident; Translations: [Cerebral infarction, unspecified] 06-27-2020 Chronic Acute myocardial infarction (12 sources) Myocardial infarction; Translations: [Myocardial infarction type 2] 04-17-2022 Chronic Allergic reactions (9 sources) Inflammatory dermatosis; Translations: [Dermatitis, unspecified] 06-19-2019 Episodic Chronic kidney disease (3 sources) Chronic kidney disease stage 4; Translations: [Chronic kidney disease, stage 4 (severe)] Chronic Chronic obstructive pulmonary disease and bronchiectasis (20 sources) Chronic obstructive lung disease; Translations: [Chronic obstructive pulmonary disease, unspecified] Onset: 02-28-2023 04-17-2022 Chronic Congestive heart failure; nonhypertensive (18 sources) Diastolic heart failure; Translations: [Diastolic heart failure, unspecified] Onset: 02-28-2023 04-17-2022 Chronic Disorders of lipid metabolism (14 sources) Hyperlipidemia; Translations: [Hyperlipidemia, unspecified] 04-17-2022 Chronic Essential hypertension (19 sources) Hypertensive disorder; Translations: [Unspecified essential hypertension] Onset: 11-02-2023 04-17-2022 Chronic Fluid and electrolyte disorders (13 sources) Hyponatremia; Translations: [Hypo-osmolality and hyponatremia] Onset: 02-01-2024 04-18-2022 Episodic Fracture of lower limb (9 sources) Fracture of foot ; Translations: [Unspecified fracture of unspecified foot, initial encounter for closed fracture] 07-21-2020 Episodic Gout and other crystal arthropathies (3 sources) 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; Translations: [Other secondary chronic gout, unspecified site, without tophus (tophi)] Chronic Malaise and fatigue (9 sources) Right hemiparesis; Translations: [Weakness] 06-27-2020 Episodic Osteoporosis (1 source) Age-related osteoporosis without current pathological fracture; Translations: [Age-related osteoporosis without current pathological fracture] Onset: 03-07-2023 Chronic Other and unspecified benign neoplasm (9 sources) Neoplasm of meninges; Translations: [Benign neoplasm of meninges, unspecified] 06-27-2020 Chronic Other circulatory disease (9 sources) Elevated blood pressure; Translations: [Elevated blood-pressure reading, without diagnosis of hypertension] 06-19-2019 Episodic Other circulatory disease (9 sources) History of cerebrovascular accident; Translations: [Personal [...] deficits] 04-18-2022 Episodic Other connective tissue disease (9 sources) Swelling of lower limb; Translations: [Other specified soft tissue disorders] 04-16-2022 Episodic Other connective tissue disease (3 sources) Other specified soft tissue disorders; Translations: [Swelling of limb] 04-18-2022 Episodic Other hematologic conditions (9 sources) Raised cardiac enzyme or marker; Translations: [Other specified abnormalities of plasma proteins] 04-16-2022 Episodic Other hematologic conditions (3 sources) Other specified abnormalities of plasma proteins; Translations: [Other abnormal blood chemistry] 04-18-2022 Episodic Other lower respiratory disease (1 source) Dyspnea; Translations: [Other respiratory abnormalities] Episodic Other nervous system disorders (1 source) Other chronic pain Onset: 01-29-2022 Resolved: 01-29-2022 Chronic Other nervous system disorders (9 sources) Slurred speech; Translations: [Slurred speech] 10-09-2020 Episodic Other nervous system disorders (9 sources) Ataxia; Translations: [Ataxia, unspecified] 06-27-2020 Episodic Other non-traumatic joint disorders (6 sources) Hip pain; Translations: [Pain in right hip] 12-16-2022 Episodic Other nutritional; endocrine; and metabolic disorders (1 source) Body mass index less than 20; Translations: [Body Mass Index less than 19, adult] Episodic Pneumonia (except that caused by tuberculosis or sexually transmitted disease) (9 sources) Pneumonia; Translations: [Pneumonia, unspecified organism] 06-27-2020 Episodic Residual codes; unclassified (9 sources) Tobacco user; Translations: [Tobacco use] 04-17-2022 Episodic Residual codes; unclassified (9 sources) Peripheral edema; Translations: [Edema, unspecified] 04-16-2022 [...] 01-17-2019 Chronic Comment on above: 1 PPD; Urinary tract infections (9 sources) Urinary tract infectious disease; Translations: [Urinary [...] knee Onset: 01-29-2022 Resolved: 01-29-2022 Episodic Other screening for suspected conditions (not mental disorders or infectious disease) (1 source) Other specified abnormal findings of blood chemistry; Translations: [Other specified abnormal findings of blood chemistry] Onset: 11-06-2023 Episodic Sprains and strains (1 source) Strain of unspecified muscle, fascia and tendon at wrist and hand level, left hand, initial encounter; Translations: [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] Onset: 01-17-2019 Episodic Results Test Name Value Interpretation Reference Range Facility Basic Metabolic Panelon 01-11 GFR/1.73 sq M.predicted MDRD (S/P/Bld) [Vol rate/Area] mL/min/{1.73_m2} Normal [facility] Comment on above: Performed By: #### B MP #### [address] Calcium [Mass/volume] in Ser um or PlasmaOrdered By: Delfina Trevino on 02-01-2024 Calcium [Mass/Vol] 10.1 mg/dL Normal 8.6-10.3 [facility] Comment on above: Result Comment: PERF ORMED BY: [place] [address] PATHOLOGIST [employer] JOESY BOUCHER M.D. Performed By: #### B MP #### [address] Carbon dioxide, total [Moles /volume] in Serum or PlasmaOrdered By: Delfina Trevino on 02-01-2024 CO2 [Moles/Vol] 27.4 mmol/L Normal 21.0-31.0 [facility] Comment on above: Performed By: #### B MP #### [address] Chloride [Moles/volume] in S stefan or PlasmaOrdered By: Delfina Trevino on 02-01-2024 Chloride [Moles/Vol] 103 mmol/L Normal 98-107 [facility] Comment on above: Performed By: #### B MP #### [address] Creatinine [Mass/volume] in Serum or PlasmaOrdered By: Delfina Trevino on 02-01-2024 Creatinine [Mass/Vol] 0.93 mg/dL Normal 0.60-1.20 [facility] Comment on above: Performed By: #### B MP #### [address] Glucose [Mass/volume] in Ser um or PlasmaOrdered By: Delfina Trevino on 02-01-2024 Glucose [Mass/Vol] 86 mg/dL Normal 70-100 [facility] Comment on above: ADA recommended refe rence rangeRandom Glucose Reference Range is dependent on time and content of last meal. Glucose of more than 200 mg/dL in a nonstressed, ambulatory subject supports the diagnosis of Diabetes Mellitus. Result Comment: [place] om Glucose Reference Range is dependent on time and content of last meal. Glucose of more than 200 mg/dL in a nonstressed, ambulatory subject supports the diagnosis of Diabetes Mellitus. ADA recommended reference range Performed By: #### B MP #### [address] No Panel InformationOrdered By: Delfina Trevino on 02-01-2024 Estimated GFR (CKD-EPI) > 60.0 mL/Min [facility] Creatinine Clearance (Chem N/A [facility] Potassium [Moles/volume] in Serum or PlasmaOrdered By: Delfina Trevino on 02-01-2024 Potassium [Moles/Vol] 4.7 mmol/L Normal 3.5-5.1 [facility] Comment on above: Performed By: #### B MP #### [address] Serum or plasma anion gap de terminationOrdered By: Delfina Trevino on 02-01-2024 Anion gap [Moles/Vol] 11.3 mmol/L Normal 6.0-15.0 [facility] Comment on above: Performed By: #### B MP #### [address] Sodium [Moles/volume] in Ser um or PlasmaOrdered By: Delfina Trevino on 02-01-2024 Sodium [Moles/Vol] 137 mmol/L Normal 136-145 [facility] Comment on above: Performed By: #### B MP #### [address] Urea nitrogen [Mass/volume] in Serum or PlasmaOrdered By: Delfina Trevino on 02-01-2024 Urea nitrogen [Mass/Vol] 16 mg/dL Normal 7-25 [facility] Comment on above: Performed By: #### B MP #### [address] Automated basophil %Ordered By: Enedelia Gordon on 11-06-2023 Basophils/100 WBC (Bld) 0.7 % Normal . [facility] Comment on above: Performed By: #### V [id number], CBC, CMP #### [address] Automated basophil countOrde red By: Enedelia Gordon on 11-06-2023 Basophils (Bld) [#/Vol] 0.1 10*3/uL Normal 0.0-0.2 [facility] Comment on above: Result Comment: PERF ORMED BY: [place] [address] PATHOLOGIST [employer] JOSEY BOUCHER M.D. Performed By: #### V [id number], CBC, CMP #### [address] Automated blood monocyte cou ntOrdered By: Enedelia Gordon on 11-06-2023 Monocytes (Bld) [#/Vol] 0.6 10*3/uL Normal 0.0-0.8 [facility] Comment on above: Performed By: #### V [id number], CBC, CMP #### [address] Automated eosinophil %Ordere d By: Enedelia Pollarde on 11-06-2023 Eosinophils/100 WBC (Bld) 3.3 % Normal . [facility] Comment on above: Performed By: #### V [id number], CBC, CMP #### [address] Automated eosinophil countOr dered By: Enedelia Gordon on 11-06-2023 Eosinophils (Bld) [#/Vol] 0.3 10*3/uL Normal 0.0-0.45 [facility] Comment on above: Performed By: #### V [id number], CBC, CMP #### [address] Automated monocyte %Ordered By: Enedelia Pollarde on 11-06-2023 Monocytes/100 WBC (Bld) 5.9 % Normal . [facility] Comment on above: Performed By: #### V [id number], CBC, CMP #### [address] Automated neutrophil %Ordere d By: Enedelia Saffle on 11-06-2023 Neutrophils/100 WBC (Bld) 63.8 % Normal . [facility] Comment on above: Performed By: #### V [id number], CBC, CMP #### [address] Basic Metabolic Panelon 10-14 GFR/1.73 sq M.predicted MDRD (S/P/Bld) [Vol rate/Area] 56.163 mL/min/{1.73_m2} Normal [facility] Comment on above: Performed By: #### V [id number], CBC, CMP #### [address] Calcium [Mass/volume] in Ser um or PlasmaOrdered By: Enedelia Gordon on 11-06-2023 Calcium [Mass/Vol] 8.8 mg/dL Normal 8.6-10.3 [facility] Comment on above: Result Comment: PERF ORMED BY: [place] [address] PATHOLOGIST SU[employer] JOSEY BOUCHER M.D. Performed By: #### V [id number], CBC, CMP #### [address] Carbon dioxide, total [Moles /volume] in Serum or PlasmaOrdered By: Enedelia Gordon on 11-06-2023 CO2 [Moles/Vol] 20.0 mmol/L Low 21.0-31.0 [facility] Comment on above: Performed By: #### V [id number], CBC, CMP #### [place] [address] [place] Chloride [Moles/volume] in S stefan or PlasmaOrdered By: Enedelia Gordon on 11-06-2023 Chloride [Moles/Vol] 97 mmol/L Low 98-107 [facility] Comment on above: Performed By: #### V [id number], CBC, CMP #### [address] Complete Blood Count Auto Di ffon 11-06-2023 Mean Corpuscular HGB Conc 34.2 g/dL Normal 32.0-35.0 [facility] Comment on above: Performed By: #### V [id number], CBC, CMP #### [facility] [address] [place] [address] [place] Monocytes/100 WBC (Bld) 18.33 % Normal 0.00-20.00 [facility] Comment on above: Performed By: #### V [id number], CBC, CMP #### [facility] [address] [place] [address] [place] NRBC% 0.0 /100{WBC} Normal 0-0.5 [facility] Comment on above: Performed By: #### V [id number], CBC, CMP #### [facility] [address] [place] [address] [place] Creatinine [Mass/volume] in Serum or PlasmaOrdered By: Enedelia Gordon on 11-06-2023 Creatinine [Mass/Vol] 1.06 mg/dL Normal 0.60-1.20 [facility] Comment on above: Performed By: #### V [id number], CBC, CMP #### [facility] [address] [place] [address] ECG 12 lead ECGon 11-06-2023 ECG 12 lead ECG [facility] [place] [address] [place] [address] Electrocardiograph Report Signed Patient: Corie Courtney MR#: [id number] : 1950 Acct:[id number] Age/Sex: 73 / F ADM Date: 11/06/23 Loc: ER Room: Type: [facility] ER Attending Dr: Ordering Provider: Enedelia Gordon [...] was found Confirmed by MARCO ANTONIO PATEL [facility], WILBERT ([id number]) on 11/08/2023 3:41:23 PM Referred By: Electronically Signed By:WILBERT EAST MD [facility] Transcribed By: MUS Signed By Wilbert East MD, [facility] 11/08/23 1541 Normal [facility] Erythrocyte distribution wid th [Ratio] by Automated countOrdered By: Enedelia Gordon on 11-06-2023 Erythrocyte distribution width (RBC) [Ratio] 14.0 % Normal 11.9-15.3 [facility] Comment on above: Performed By: #### V [id number], CBC, CMP #### [facility] [address] Erythrocytes [#/volume] in B lood by Automated countOrdered By: Enedelia Gordon on 11-06-2023 RBC (Bld) [#/Vol] 3.81 10*6/uL Normal 3.60-5.00 [facility] Comment on above: Performed By: #### V [id number], CBC, CMP #### [facility] [address] [place] [id number] [place] Glucose [Mass/volume] in Ser um or PlasmaOrdered By: Enedelia Gordon on 11-06-2023 Glucose [Mass/Vol] 82 mg/dL Normal 70-100 [facility] Comment on above: ADA recommended refe rence rangeRandom Glucose Reference Range is dependent on time and content of last meal. Glucose of more than 200 mg/dL in a nonstressed, ambulatory subject supports the diagnosis of Diabetes Mellitus. Result Comment: [place] Glucose Reference Range is dependent on time and content of last meal. Glucose of more than 200 mg/dL in a nonstressed, ambulatory subject supports the diagnosis of Diabetes Mellitus. ADA recommended reference range Performed By: #### V [id number], CBC, CMP #### [facility] [address] [place] [id number] [place] Hematocrit [Volume Fraction] of Blood by Automated countOrdered By: Enedelia Gordon on 11-06-2023 Hematocrit (Bld) [Volume fraction] 34.4 % Normal 34.0-46.4 [facility] Comment on above: Performed By: #### V [id number], CBC, CMP #### [facility] [address] Hemoglobin [Mass/volume] in BloodOrdered By: Enedelia Gordon on 11-06-2023 Hemoglobin (Bld) [Mass/Vol] 11.8 g/dL Normal 11.8-15.4 [facility] Comment on above: Performed By: #### V [id number], CBC, CMP #### [facility] [address] [place] [address] Leukocytes [#/volume] correc candelario for nucleated erythrocytes in Blood by Automated counOrdered By: Enedelia Gordon on 11-06-2023 WBC corrected for nucl RBC Auto (Bld) [#/Vol] 10.0 10*3/uL 3.8-11.6 [facility] Leukocytes [#/volume] in Blo od by Automated countOrdered By: Enedelia Gordon on 11-06-2023 WBC (Bld) [#/Vol] 10.0 10*3/uL Normal 3.8-11.6 [facility] Comment on above: Performed By: #### V [id number], CBC, CMP #### [place] [address] [place] Lymphocytes [#/volume] in Bl ood by Automated countOrdered By: Enedelia Gordon on 11-06-2023 Lymphocytes (Bld) [#/Vol] 2.6 10*3/uL Normal 1.00-4.8 [facility] Comment on above: Performed By: #### V [id number], CBC, CMP #### [facility] [address] [place] [address] [place] Lymphocytes/100 leukocytes i n Blood by Automated countOrdered By: Enedelia Gordon on 11-06-2023 Lymphocytes/100 WBC (Bld) 26.3 % Normal . [facility] Comment on above: Performed By: #### V [id number], CBC, CMP #### [facility] [address] [place] [address] [place] MCH [Entitic mass] by Automa candelario countOrdered By: Enedelia Gordon on 11-06-2023 MCH (RBC) [Entitic mass] 30.9 pg Normal 24.7-34.3 [facility] Comment on above: Performed By: #### V [id number], CBC, CMP #### [address] MCHC Auto (RBC) [Mass/Vol]Or dered By: Enedelia Gordon on 11-06-2023 MCHC (RBC) [Mass/Vol] 34.2 g/dL 32.0-35.0 [facility] MCV [Entitic volume] by Auto mated countOrdered By: Enedelia Gordon on 11-06-2023 MCV (RBC) [Entitic vol] 90.3 fL Normal 80-100 [facility] Comment on above: Performed By: #### V [id number], CBC, CMP #### [address] Magnesium [Mass/volume] in S stefan or PlasmaOrdered By: Enedelia Gordon on 11-06-2023 Magnesium [Mass/Vol] 1.9 mg/dL Normal 1.9-2.7 [facility] Comment on above: Result Comment: PERF ORMED BY: [place] [address] PATHOLOGIST [employer] JOSEY BOUCHER M.D. Performed By: #### V [id number], CBC, CMP #### [address] Monocyte distribution width [Entitic volume] in Blood by AutomatedOrdered By: Enedelia Gordon on 11-06-2023 Monocyte distribution width Auto (Bld) [Entitic vol] 18.33 % 0.00-20.00 [facility] Neutrophils [#/volume] in Bl ood by Automated countOrdered By: Enedelia Gordon on 11-06-2023 Neutrophils (Bld) [#/Vol] 6.4 10*3/uL Normal 1.8-7.7 [facility] Comment on above: Performed By: #### V [id number], CBC, CMP #### [address] [place] [address] [place] No Panel InformationOrdered By: Enedelia Gordon on 11-06-2023 Estimated GFR (CKD-EPI) 56.163 mL/Min [facility] Creatinine Clearance (Chem N/A [facility] Nucleated erythrocytes [Pres ence] in Blood by Automated countOrdered By: Enedelia Gordon on 11-06-2023 Nucleated RBC Auto Ql (Bld) 0.0 /100{WBC} 0-0.5 [facility] Platelet mean volume [Entiti c volume] in Blood by Automated countOrdered By: Enedelia Gordon on 11-06-2023 Platelet mean volume (Bld) [Entitic vol] 6.5 fL Normal 6.3-10.7 [facility] Comment on above: Performed By: #### V [id number], CBC, CMP #### [facility] [address] [place] [address] Platelets [#/volume] in Bloo d by Automated countOrdered By: Enedelia Gordon on 11-06-2023 Platelets (Bld) [#/Vol] 354 10*3/uL Normal 150-450 [facility] Comment on above: Performed By: #### V [id number], CBC, CMP #### [facility] [address] [place] [address] [place] Potassium [Moles/volume] in Serum or PlasmaOrdered By: Enedelia Gordon on 11-06-2023 Potassium [Moles/Vol] 4.6 mmol/L Normal 3.5-5.1 [facility] Comment on above: Performed By: #### V [id number], CBC, CMP #### [facility] [address] [place] [address] Serum or plasma anion gap de terminationOrdered By: Enedelia Gordon on 11-06-2023 Anion gap [Moles/Vol] 13.6 mmol/L Normal 6.0-15.0 [facility] Comment on above: Performed By: #### V [id number], CBC, CMP #### [facility] [address] [place] [address] [place] Sodium [Moles/volume] in Ser um or PlasmaOrdered By: Enedelia Gordon on 11-06-2023 Sodium [Moles/Vol] 126 mmol/L Low 136-145 [facility] Comment on above: Performed By: #### V [id number], CBC, CMP #### [facility] [address] [place] [address] [place] Troponin I High Sensitivityo n 11-06-2023 Troponin I High Sensitivity 5.6 pg/mL Normal 0.0-15.0 [facility] Comment on above: Result Comment: PERF ORMED BY: [place] [address] PATHOLOGIST SUPER[employer] JOSEY BOUCHER M.D. Performed By: #### V [id number], CBC, CMP #### [place] [address] [place] Troponin I.cardiac [Mass/vol ume] in Serum or Plasma by Detection limit <= 0.01 ng/Ordered By: Enedelia Gordon on 11-06-2023 Troponin I.cardiac DL <= 0.01 ng/mL [Mass/Vol] 5.6 pg/mL 0.0-15.0 [facility] Urea nitrogen [Mass/volume] in Serum or PlasmaOrdered By: Enedelia Gordon on 11-06-2023 Urea nitrogen [Mass/Vol] 22 mg/dL Normal 04-05 [facility] Comment on above: Performed By: #### V [id number], CBC, CMP #### [facility] [address] [place] [address] [place] Alanine aminotransferase [En zymatic activity/volume] in Serum or PlasmaOrdered By: Delfina Trevino on 11-02-2023 ALT [Catalytic activity/Vol] 19 U/L Normal [facility] Comment on above: Order Comment: Reaso n for Exam Essential (primary) hypertension Performed By: #### L IPID, CMP #### [facility] [address] [place], [place] [id number] [place] Albumin [Mass/volume] in Ser um or Plasma by Bromocresol green (BCG) dye binding methoOrdered By: Delfina Trevino on 11-02-2023 Albumin BCG dye [Mass/Vol] 4.4 g/dL 3.5-5.7 [facility] Alkaline phosphatase [Enzyma tic activity/volume] in Serum or PlasmaOrdered By: Delfina Trevino on 11-02-2023 ALP [Catalytic activity/Vol] 100 U/L Normal 34-104 [facility] Comment on above: Order Comment: Reaso n for Exam Essential (primary) hypertension Performed By: #### L IPID, CMP #### [facility] [address] Aspartate aminotransferase [ Enzymatic activity/volume] in Serum or PlasmaOrdered By: Delfina Trevino on 11-02-2023 AST [Catalytic activity/Vol] 18 U/L Normal 13-39 [facility] Comment on above: Order Comment: Reaso n for Exam Essential (primary) hypertension Performed By: #### L IPID, CMP #### [facility] [address] [place] [address] [place] Bilirubin.total [Mass/volume ] in Serum or PlasmaOrdered By: Delfina Trevino on 11-02-2023 Bilirubin [Mass/Vol] 0.5 mg/dL Normal 0.3-1.0 [facility] Comment on above: Order Comment: Reaso n for Exam Essential (primary) hypertension Performed By: #### L IPID, CMP #### [facility] [address] [place] [id number] [place] Calcium [Mass/volume] in Ser um or PlasmaOrdered By: Delfina Trevino on 11-02-2023 Calcium [Mass/Vol] 9.3 mg/dL Normal 8.6-10.3 [facility] Comment on above: Order Comment: Reaso n for Exam Essential (primary) hypertension Performed By: #### L IPID, CMP #### [facility] [address] [place] [address] [place] Carbon dioxide, total [Moles /volume] in Serum or PlasmaOrdered By: Delfina Trevino on 11-02-2023 CO2 [Moles/Vol] 24.1 mmol/L Normal 21.0-31.0 [facility] Comment on above: Order Comment: Reaso n for Exam Essential (primary) hypertension Performed By: #### L IPID, CMP #### [facility] [address] [place] [id number] [place] Chloride [Moles/volume] in S stefan or PlasmaOrdered By: Delfina Trevino on 11-02-2023 Chloride [Moles/Vol] 93 mmol/L Low 98-107 [facility] Comment on above: Order Comment: Reaso n for Exam Essential (primary) hypertension Performed By: #### L IPID, CMP #### [facility] [address] [place] [id number] [place] Cholesterol [Mass/volume] in Serum or PlasmaOrdered By: Delfina Trevino on 11-02-2023 Cholesterol [Mass/Vol] 170 mg/dL Normal 140-200 [facility] Comment on above: Chol less than 200 m g/dl low riskChol 201-239 mg/dl borderline riskChol 240 mg/dl and greater high risk Order Comment: Reaso n for Exam Essential (primary) hypertension Result Comment: Chol less than 200 mg/dl low risk Chol 201-239 mg/dl borderline risk Chol 240 mg/dl and greater high risk Performed By: #### L IPID, CMP #### [facility] [address] [place] [id number] [facility] Cholesterol in LDL Calc [Mas s/Vol]Ordered By: Delfina Trevino on 11-02-2023 Cholesterol in LDL [Mass/Vol] 75 mg/dL 0-100 [facility] Comment on above: LDL ATP III CLASSIFI CATIONLDL less than 100 mg/dL OptimalLDL 100-129 mg/dL Near or above optimalLDL 130-159 mg/dL Borderline highLDL 160-189 mg/dL HighLDL greater than 189 mg/dL Very high Cholesterol in VLDL Calc [Ma ss/Vol]Ordered By: Delfina Trevino on 11-02-2023 Cholesterol in VLDL [Mass/Vol] 18 mg/dL [facility] Comprehensive Metabolic Pane dinora 11-02-2023 Albumin [Mass/Vol] 4.4 g/dL Normal 3.5-5.7 [facility] Comment on above: Order Comment: Reaso n for Exam Essential (primary) hypertension Performed By: #### L IPID, CMP #### [facility] [address] [place] [address] [place] GFR/1.73 sq M.predicted MDRD (S/P/Bld) [Vol rate/Area] 43.963 mL/min/{1.73_m2} Normal [facility] Comment on above: Order Comment: Reaso n for Exam Essential (primary) hypertension Performed By: #### L IPID, CMP #### [facility] [address] Creatinine [Mass/volume] in Serum or PlasmaOrdered By: Delfina Trevino on 11-02-2023 Creatinine [Mass/Vol] 1.30 mg/dL High 0.60-1.20 [facility] Comment on above: Order Comment: Reaso n for Exam Essential (primary) hypertension Performed By: #### L IPID, CMP #### [facility] [address] Glucose [Mass/volume] in Ser um or PlasmaOrdered By: Delfina Trevino on 11-02-2023 Glucose [Mass/Vol] 90 mg/dL Normal 70-100 [facility] Comment on above: ADA recommended refe rence rangeRandom Glucose Reference Range is dependent on time and content of last meal. Glucose of more than 200 mg/dL in a nonstressed, ambulatory subject supports the diagnosis of Diabetes Mellitus. Order Comment: Reaso n for Exam Essential (primary) hypertension Result Comment: [place] om Glucose Reference Range is dependent on time and content of last meal. Glucose of more than 200 mg/dL in a nonstressed, ambulatory subject supports the diagnosis of Diabetes Mellitus. ADA recommended reference range Performed By: #### L IPID, CMP #### [facility] [address] [place] [id number] [facility] Lipid Panelon 11-02-2023 LDL Cholesterol,Calculated 75 mg/dL Normal 0-100 [facility] Comment on above: Order Comment: Reaso n for Exam Essential (primary) hypertension Result Comment: LDL ATP III CLASSIFICATION LDL less than 100 mg/dL Optimal LDL 100-129 mg/dL Near or above optimal LDL 130-159 mg/dL Borderline high LDL 160-189 mg/dL High LDL greater than 189 mg/dL Very high Performed By: #### L IPID, CMP #### [facility] [address] [place] [address] [place] Triglyceride w/Reflex 94 mg/dL Normal 0-149 [facility] Comment on above: Order Comment: Reaso n for Exam Essential (primary) hypertension Result Comment: TRIG ATP III CLASSIFICATION TRIG less than 150 mg/dL Normal TRIG 150-199 mg/dL Borderline high TRIG 200-500 mg/dL High TRIG greater than 500 mg/dL Very high Standard traceable to the Center for Disease Conrtrol and Prevention (CDC) test method. Performed By: #### L IPID, CMP #### [facility] [address] VLDL CHOLESTEROL 18 mg/dL Normal [facility] Comment on above: Order Comment: Reaso n for Exam Essential (primary) hypertension Performed By: #### L IPID, CMP #### [facility] [address] No Panel InformationOrdered By: Delfina Trevino on 11-02-2023 Estimated GFR (CKD-EPI) 43.963 mL/Min [facility] Creatinine Clearance (Chem N/A [facility] Potassium [Moles/volume] in Serum or PlasmaOrdered By: Delfina Trevino on 11-02-2023 Potassium [Moles/Vol] 5.3 mmol/L High 3.5-5.1 [facility] Comment on above: Order Comment: Reaso n for Exam Essential (primary) hypertension Performed By: #### L IPID, CMP #### [facility] [address] [place] [address] [place] Protein [Mass/volume] in Ser um or PlasmaOrdered By: Delfina Trevino on 11-02-2023 Protein [Mass/Vol] 6.7 g/dL Normal 6.4-8.9 [facility] Comment on above: Order Comment: Reaso n for Exam Essential (primary) hypertension Performed By: #### L IPID, CMP #### [facility] [address] Serum globulin measurement b y calculation (mass/volume)Ordered By: Delfina Trevino on 11-02-2023 Globulin (S) [Mass/Vol] 2.3 g/dL Normal [facility] Comment on above: Order Comment: Reaso n for Exam Essential (primary) hypertension Performed By: #### L IPID, CMP #### [facility] [address] [place] [address] Serum or plasma albumin/glob ulin mass ratioOrdered By: Delfina Trevino on 11-02-2023 Albumin/Globulin [Mass ratio] 1.9 {ratio} Normal [facility] Comment on above: Order Comment: Reaso n for Exam Essential (primary) hypertension Performed By: #### L IPID, CMP #### [facility] [address] [place] [address] Serum or plasma anion gap de terminationOrdered By: Delfina Trevino on 11-02-2023 Anion gap [Moles/Vol] 11.2 mmol/L Normal 6.0-15.0 [facility] Comment on above: Order Comment: Reaso n for Exam Essential (primary) hypertension Performed By: #### L IPID, CMP #### [facility] [address] [place] [address] Serum or plasma high density lipoprotein (HDL) cholesterol measurementOrdered By: Delfina Trevino on 11-02-2023 Cholesterol in HDL [Mass/Vol] 76 mg/dL Normal 23-92 [facility] Comment on above: HDL CHOL ATP-III CLA SSIFICATION Cardiovascular RiskHDL > or equal to 60 mg/dL LOWHDL < 40 mg/dL HIGH Order Comment: Reaso n for Exam Essential (primary) hypertension Result Comment: HDL CHOL ATP-III CLASSIFICATION Cardiovascular Risk HDL > or equal to 60 mg/dL LOW HDL < 40 mg/dL HIGH Performed By: #### L IPID, CMP #### [facility] [address] [place] [address] Serum or plasma total choles terol/high density lipoprotein (HDL) cholesterol mass ratOrdered By: Delfina Trevino on 11-02-2023 Cholesterol.total/Lisa sterol in HDL [Mass ratio] 2.2 {ratio} Normal <5.0 [facility] Comment on above: Order Comment: Zulay moeller for Exam Essential (primary) hypertension Result Comment: PERF ORMED BY: [place] [address] PATHOLOGIST SUPER[employer] JOSEY BOUCHER M.D. Performed By: #### L IPID, CMP #### [facility] [address] [place] [address] [place] Sodium [Moles/volume] in Ser um or PlasmaOrdered By: Delfina Trevino on 11-02-2023 Sodium [Moles/Vol] 123 mmol/L Off scale low 136-145 [facility] Comment on above: Critical Result Call ed to and read back by: AGUSTINA FANG at: 11/02/2023 20:51:14 by:[id number] Order Comment: Zulay moeller for Exam Essential (primary) hypertension Result Comment: Crit ical Result Called to and read back by: AGUSTINA FANG at: 11/02/2023 20:51:14 by:[id number] Performed By: #### L IPID, CMP #### [facility] [address] [place] [address] [place] Triglyceride [Mass/volume] i n Serum or PlasmaOrdered By: Delfina Trevino on 11-02-2023 Triglyceride [Mass/Vol] 94 mg/dL 0-149 [facility] Comment on above: TRIG ATP III CLASSIF ICATIONTRIG less than 150 mg/dL NormalTRIG 150-199 mg/dL Borderline highTRIG 200-500 mg/dL High TRIG greater than 500 mg/dL Very highStandard traceable to the Center for Disease Conrtrol and Prevention (CDC) test method. Urea nitrogen [Mass/volume] in Serum or PlasmaOrdered By: Delfina Trevino on 11-02-2023 Urea nitrogen [Mass/Vol] 26 mg/dL High 7-25 [facility] Comment on above: Order Comment: Zulay moeller for Exam Essential (primary) hypertension Performed By: #### L IPID, CMP #### [facility] [address] Office Visit (Cardiology)on 03-04-2023 Follow-up visit Diagnoses/Problems [...] we can help. You may also call 8-628-[phone] for free resources and assistance.; Status:Complete - [...] of coffee (more content not included)... Normal [employer] Tobacco Screening.on 023 Adult depression screening assessment No [facility]- [place] 250 DO Work Phone: Fall risk assessment a) No falls within the last year [facility]- [place] 250 DO Work Phone: Tobacco use status CPHS a) Yes M P-Cardiology- [place] 250 DO Work Phone: Tobacco Screening. Yes [facility]-Car diology- [place] 250 DO Work Phone: Alanine aminotransferase [En zymatic activity/volume] in Serum or PlasmaOrdered By: Delfina Trevino on 02-28-2023 ALT [Catalytic activity/Vol] 12 U/L Normal 7-52 [facility] Comment on above: Order Comment: Reaso n for Exam Chronic diastolic congestive heart failure Reason for Exam Bone pain Performed By: #### V [id number], CBC, CMP #### [facility] [address] Albumin [Mass/volume] in Ser um or Plasma by Bromocresol green (BCG) dye binding methoOrdered By: Delfina Trevino on 02-28-2023 Albumin BCG dye [Mass/Vol] 4.2 g/dL 3.5-5.7 [facility] Alkaline phosphatase [Enzyma tic activity/volume] in Serum or PlasmaOrdered By: Delfina Trevino on 02-28-2023 ALP [Catalytic activity/Vol] 142 U/L High 34-104 [facility] Comment on above: Order Comment: Reaso n for Exam Chronic diastolic congestive heart failure Reason for Exam Bone pain Performed By: #### V [id number], CBC, CMP #### [facility] [address] Aspartate aminotransferase [ Enzymatic activity/volume] in Serum or PlasmaOrdered By: Delfina Trevino on 02-28-2023 AST [Catalytic activity/Vol] 15 U/L Normal 13-39 [facility] Comment on above: Order Comment: Reaso n for Exam Chronic diastolic congestive heart failure Reason for Exam Bone pain Performed By: #### V [id number], CBC, CMP #### [facility] [address] Automated basophil %Ordered By: Delfina Trevino on 02-28-2023 Basophils/100 WBC (Bld) 0.9 % Normal . [facility] Comment on above: Order Comment: Reaso n for Exam Chronic diastolic congestive heart failure Performed By: #### V [id number], CBC, CMP #### [facility] [address] [place] [address] Automated basophil countOrde red By: Delfina Trevino on 02-28-2023 Basophils (Bld) [#/Vol] 0.1 10*3/uL Normal 0.0-0.2 [facility] Comment on above: Order Comment: Reaso n for Exam Chronic diastolic congestive heart failure Result Comment: PERF ORMED BY: [place] [address] PATHOLOGIST SU[employer] JOSEY BOUCHER M.D. Performed By: #### V [id number], CBC, CMP #### [facility] [address] Automated blood monocyte cou ntOrdered By: Delfina Trevino on 02-28-2023 Monocytes (Bld) [#/Vol] 0.7 10*3/uL Normal 0.0-0.8 [facility] Comment on above: Order Comment: Reaso n for Exam Chronic diastolic congestive heart failure Performed By: #### V [id number], CBC, CMP #### [facility] [address] [place] [address] Automated eosinophil %Ordere d By: Delfina Trevino on 02-28-2023 Eosinophils/100 WBC (Bld) 5.5 % Normal . [facility] Comment on above: Order Comment: Reaso n for Exam Chronic diastolic congestive heart failure Performed By: #### V [id number], CBC, CMP #### [facility] [address] Automated eosinophil countOr dered By: Delfina Trevino on 02-28-2023 Eosinophils (Bld) [#/Vol] 0.6 10*3/uL High 0.0-0.45 [facility] Comment on above: Order Comment: Reaso n for Exam Chronic diastolic congestive heart failure Performed By: #### V [id number], CBC, CMP #### [facility] [address] Automated monocyte %Ordered By: Delfina Trevino on 02-28-2023 Monocytes/100 WBC (Bld) 6.8 % Normal . [facility] Comment on above: Order Comment: Reaso n for Exam Chronic diastolic congestive heart failure Performed By: #### V [id number], CBC, CMP #### [facility] [address] Automated neutrophil %Ordere d By: Delfina Trevino on 02-28-2023 Neutrophils/100 WBC (Bld) 65.4 % Normal . [facility] Comment on above: Order Comment: Reaso n for Exam Chronic diastolic congestive heart failure Performed By: #### V [id number], CBC, CMP #### [facility] [address] Bilirubin.total [Mass/volume ] in Serum or PlasmaOrdered By: Delfina Trevino on 02-28-2023 Bilirubin [Mass/Vol] 0.4 mg/dL Normal 0.3-1.0 [facility] Comment on above: Order Comment: Reaso n for Exam Chronic diastolic congestive heart failure Reason for Exam Bone pain Performed By: #### V [id number], CBC, CMP #### [facility] [address] Calcium [Mass/volume] in Ser um or PlasmaOrdered By: Delfina Trevino on 02-28-2023 Calcium [Mass/Vol] 10.5 mg/dL High 8.6-10.3 [facility] Comment on above: Order Comment: Reaso n for Exam Chronic diastolic congestive heart failure Reason for Exam Bone pain Performed By: #### V [id number], CBC, CMP #### [facility] [address] Carbon dioxide, total [Moles /volume] in Serum or PlasmaOrdered By: Delfina Trevino on 02-28-2023 CO2 [Moles/Vol] 23.8 mmol/L Normal 21.0-31.0 [facility] Comment on above: Order Comment: Reaso n for Exam Chronic diastolic congestive heart failure Reason for Exam Bone pain Performed By: #### V [id number], CBC, CMP #### [facility] [address] [place] [address] [place] Chloride [Moles/volume] in S stefan or PlasmaOrdered By: Delfina Trevino on 02-28-2023 Chloride [Moles/Vol] 98 mmol/L Normal 98-107 [facility] Comment on above: Order Comment: Reaso n for Exam Chronic diastolic congestive heart failure Reason for Exam Bone pain Performed By: #### V [id number], CBC, CMP #### [facility] [address] Complete Blood Count Auto Di ffon 02-28-2023 Mean Corpuscular HGB Conc 34.1 g/dL Normal 32.0-35.0 [facility] Comment on above: Order Comment: Reaso n for Exam Chronic diastolic congestive heart failure Performed By: #### V [id number], CBC, CMP #### [facility] [address] [place] [address] [place] NRBC% 0.1 /100{WBC} Normal 0-0.5 [facility] Comment on above: Order Comment: Reaso n for Exam Chronic diastolic congestive heart failure Performed By: #### V [id number], CBC, CMP #### [facility] [address] Comprehensive Metabolic Pane dinora 02-28-2023 Albumin [Mass/Vol] 4.2 g/dL Normal 3.5-5.7 [facility] Comment on above: Order Comment: Reaso n for Exam Chronic diastolic congestive heart failure Reason for Exam Bone pain Performed By: #### V [id number], CBC, CMP #### [facility] [address] [place] [address] GFR/1.73 sq M.predicted MDRD (S/P/Bld) [Vol rate/Area] 39.456 mL/min/{1.73_m2} Normal [facility] Comment on above: Order Comment: Reaso n for Exam Chronic diastolic congestive heart failure Reason for Exam Bone pain Performed By: #### V [id number], CBC, CMP #### [address] Creatinine [Mass/volume] in Serum or PlasmaOrdered By: Delfina Trevino on 02-28-2023 Creatinine [Mass/Vol] 1.43 mg/dL High 0.60-1.20 [facility] Comment on above: Order Comment: Reaso n for Exam Chronic diastolic congestive heart failure Reason for Exam Bone pain Performed By: #### V [id number], CBC, CMP #### [address] Erythrocyte distribution wid th [Ratio] by Automated countOrdered By: Delfina Trevino on 02-28-2023 Erythrocyte distribution width (RBC) [Ratio] 18.1 % High 11.9-15.3 [facility] Comment on above: Order Comment: Reaso n for Exam Chronic diastolic congestive heart failure Performed By: #### V [id number], CBC, CMP #### [facility] [address] [place] [address] [place] Erythrocytes [#/volume] in B lood by Automated countOrdered By: Delfina Trevino on 02-28-2023 RBC (Bld) [#/Vol] 4.02 10*6/uL Normal 3.60-5.00 [facility] [facility] Comment on above: Order Comment: Reaso n for Exam Chronic diastolic congestive heart failure Performed By: #### V [id number], CBC, CMP #### [facility] [address] [place] [address] [place] Glucose [Mass/volume] in Ser um or PlasmaOrdered By: Delfina Trevino on 02-28-2023 Glucose [Mass/Vol] 100 mg/dL Normal 70-100 [facility] Comment on above: ADA recommended refe rence rangeRandom Glucose Reference Range is dependent on time and content of last meal. Glucose of more than 200 mg/dL in a nonstressed, ambulatory subject supports the diagnosis of Diabetes Mellitus. Order Comment: Reaso n for Exam Chronic diastolic congestive heart failure Reason for Exam Bone pain Result Comment: [place] om Glucose Reference Range is dependent on time and content of last meal. Glucose of more than 200 mg/dL in a nonstressed, ambulatory subject supports the diagnosis of Diabetes Mellitus. ADA recommended reference range Performed By: #### V [id number], CBC, CMP #### [facility] [address] Hematocrit [Volume Fraction] of Blood by Automated countOrdered By: Delfina Trevino on 02-28-2023 Hematocrit (Bld) [Volume fraction] 33.6 % Low 34.0-46.4 [facility] Comment on above: Order Comment: Reaso n for Exam Chronic diastolic congestive heart failure Performed By: #### V [id number], CBC, CMP #### [facility] [address] [place] [address] [place] Hemoglobin [Mass/volume] in BloodOrdered By: Delfina Trevino on 02-28-2023 Hemoglobin (Bld) [Mass/Vol] 11.4 g/dL Low 11.8-15.4 [facility] Comment on above: Order Comment: Reaso n for Exam Chronic diastolic congestive heart failure Performed By: #### V [id number], CBC, CMP #### [facility] [address] [place] [address] [place] Leukocytes [#/volume] correc candelario for nucleated erythrocytes in Blood by Automated counOrdered By: Delfina Trevino on 02-28-2023 WBC corrected for nucl RBC Auto (Bld) [#/Vol] 10.5 10*3/uL 3.8-11.6 [facility] Leukocytes [#/volume] in Blo od by Automated countOrdered By: Delfina Trevino on 02-28-2023 WBC (Bld) [#/Vol] 10.5 10*3/uL Normal 3.8-11.6 [facility] Comment on above: Order Comment: Reaso n for Exam Chronic diastolic congestive heart failure Performed By: #### V [id number], CBC, CMP #### [facility] [address] [place] [address] [place] Lymphocytes [#/volume] in Bl ood by Automated countOrdered By: Delfina Trevino on 02-28-2023 Lymphocytes (Bld) [#/Vol] 2.2 10*3/uL Normal 1.00-4.8 [facility] Comment on above: Order Comment: Reaso n for Exam Chronic diastolic congestive heart failure Performed By: #### V [id number], CBC, CMP #### [facility] [address] [place] [address] [place] Lymphocytes/100 leukocytes i n Blood by Automated countOrdered By: Delfina Trevino on 02-28-2023 Lymphocytes/100 WBC (Bld) 21.4 % Normal . [facility] Comment on above: Order Comment: Reaso n for Exam Chronic diastolic congestive heart failure Performed By: #### V [id number], CBC, CMP #### [facility] [address] [place] [address] [place] MCH [Entitic mass] by Automa candelario countOrdered By: Delfina Trevino on 02-28-2023 MCH (RBC) [Entitic mass] 28.4 pg Normal 24.7-34.3 [facility] Comment on above: Order Comment: Reaso n for Exam Chronic diastolic congestive heart failure Performed By: #### V [id number], CBC, CMP #### [facility] [address] [place], [place] [id number] [place] MCHC Auto (RBC) [Mass/Vol]Or dered By: Delfina Trevino on 02-28-2023 MCHC (RBC) [Mass/Vol] 34.1 g/dL 32.0-35.0 [facility] MCV [Entitic volume] by Auto mated countOrdered By: Delfina Trevino on 02-28-2023 MCV (RBC) [Entitic vol] 83.5 fL Normal 80-100 [facility] Comment on above: Order Comment: Reaso n for Exam Chronic diastolic congestive heart failure Performed By: #### V [id number], CBC, CMP #### [facility] [address] [place] jony perf SPECT rest stron 02-28-2023 [place] jony perf SPECT rest str [facility] [place] [address] [place] [address] Nuclear Medicine Report Signed Patient: Corie Courtney MR#: [id number] : 1950 Acct:[id number] Age/Sex: 72 / F ADM Date: 02/28/23 Loc: [place] Room: Type: [facility] Attending Dr: Delfina Trevino APRN, SLUDGE CONTROL OPERATOR-C Copies to: Delfina Trevino APRN,NAUN Connell MD [...] 02/28/23 1700 Signed By: 03/02/23 1539 Normal [facility] Neutrophils [#/volume] in Bl ood by Automated countOrdered By: Delfina Trevino on 02-28-2023 Neutrophils (Bld) [#/Vol] 6.9 10*3/uL Normal 1.8-7.7 [facility] Comment on above: Order Comment: Reaso n for Exam Chronic diastolic congestive heart failure Performed By: #### V [id number], CBC, CMP #### [facility] [address] No Panel InformationOrdered By: Delfina Trevnio on 02-28-2023 Estimated GFR (CKD-EPI) 39.456 mL/Min [facility] Creatinine Clearance (Chem N/A [facility] Nucleated erythrocytes [Pres ence] in Blood by Automated countOrdered By: Delfina Trevino on 02-28-2023 Nucleated RBC Auto Ql (Bld) 0.1 /100{WBC} 0-0.5 [facility] Platelet mean volume [Entiti c volume] in Blood by Automated countOrdered By: Delfina Trevino on 02-28-2023 Platelet mean volume (Bld) [Entitic vol] 7.0 fL Normal 6.3-10.7 [facility] Comment on above: Order Comment: Reaso n for Exam Chronic diastolic congestive heart failure Performed By: #### V [id number], CBC, CMP #### [facility] [address] Platelets [#/volume] in Bloo d by Automated countOrdered By: Delfina Trevino on 02-28-2023 Platelets (Bld) [#/Vol] 536 10*3/uL High 150-450 [facility] Comment on above: Order Comment: Reaso n for Exam Chronic diastolic congestive heart failure Performed By: #### V [id number], CBC, CMP #### [facility] [address] [place] [address] [place] Potassium [Moles/volume] in Serum or PlasmaOrdered By: Delfina Trevino on 02-28-2023 Potassium [Moles/Vol] 4.0 mmol/L Normal 3.5-5.1 [facility] Comment on above: Order Comment: Reaso n for Exam Chronic diastolic congestive heart failure Reason for Exam Bone pain Performed By: #### V [id number], CBC, CMP #### [facility] [address] [place] [id number] [facility] Protein [Mass/volume] in Ser um or PlasmaOrdered By: Delfina Trevino on 02-28-2023 Protein [Mass/Vol] 7.8 g/dL Normal 6.4-8.9 [facility] Comment on above: Order Comment: Reaso n for Exam Chronic diastolic congestive heart failure Reason for Exam Bone pain Performed By: #### V [id number], CBC, CMP #### [facility] [address] STR cardiac stress/lexiscano n 02-28-2023 STR cardiac stress/lexiscan [facility] [place] [address] [place] [address] Cardiac Stress Test Signed Patient: Corie Courtney MR#: [id number] : 1950 Acct:[id number] Age/Sex: 72 / F ADM Date: 02/28/23 Loc: [place] Room: Type: [facility] Attending Dr: CURTIS Olson APRN Copies to: Delfina Trevino APRN, CNP Mourhaf [...] 02/28/23 1041 Signed By: 02/28/23 1546 Normal [facility] Serum globulin measurement b y calculation (mass/volume)Ordered By: Delfina Trevino on 02-28-2023 Globulin (S) [Mass/Vol] 3.6 g/dL Normal [facility] Comment on above: Order Comment: Reaso n for Exam Chronic diastolic congestive heart failure Reason for Exam Bone pain Performed By: #### V [id number], CBC, CMP #### [facility] [address] Serum or plasma albumin/glob ulin mass ratioOrdered By: Delfina Trevino on 02-28-2023 Albumin/Globulin [Mass ratio] 1.2 {ratio} Normal [facility] Comment on above: Order Comment: Reaso n for Exam Chronic diastolic congestive heart failure Reason for Exam Bone pain Performed By: #### V [id number], CBC, CMP #### [facility] [address] Serum or plasma anion gap de terminationOrdered By: Delfina Trevino on 02-28-2023 Anion gap [Moles/Vol] 13.2 mmol/L Normal 6.0-15.0 [facility] Comment on above: Order Comment: Reaso n for Exam Chronic diastolic congestive heart failure Reason for Exam Bone pain Performed By: #### V [id number], CBC, CMP #### [facility] [address] [place] [address] [place] Sodium [Moles/volume] in Ser um or PlasmaOrdered By: Delfina Trevino on 02-28-2023 Sodium [Moles/Vol] 131 mmol/L Low 136-145 [facility] Comment on above: Order Comment: Reaso n for Exam Chronic diastolic congestive heart failure Reason for Exam Bone pain Performed By: #### V [id number], CBC, CMP #### [facility] [address] Urea nitrogen [Mass/volume] in Serum or PlasmaOrdered By: Delfina Trevino on 02-28-2023 Urea nitrogen [Mass/Vol] 27 mg/dL High 7-25 [facility] Comment on above: Order Comment: Reaso n for Exam Chronic diastolic congestive heart failure Reason for Exam Bone pain Performed By: #### V [id number], CBC, CMP #### [facility] [address] Vitamin D 25 Hydroxy Totalon 02-28-2023 Vitamin D 25 Hydroxy Total 60.0 ng/mL Normal 30-100 [facility] Comment on above: Order Comment: Reaso n for Exam Chronic diastolic congestive heart failure Reason for Exam Bone pain Result Comment: ARACELIS MIN D STATUS 25(OH)VITAMIN D RANGE (ng/mL) Deficient <20 Insufficient 20 to <30 Sufficient 30 to 100 Reference: Melissa Green, Hernán BUNDY, et al. Evaluation,treatment, and prevention of vitamin D deficiency; an Endocrine Society clinical practice guideline. JCEM. 2010; 96(7):1911-30. PERFORMED BY: [place] [address] PATHOLOGIST SUPERVISOR [employer] JOSEY BOUCHER M.D. Performed By: #### V [id number], CBC, CMP #### [facility] [address] [place] [address] Vitamin D+Metabolites [Mass/ volume] in Serum or PlasmaOrdered By: Delfina Trevino on 02-28-2023 Vitamin D+Metabolites [Mass/Vol] 60.0 ng/mL 30-100 [facility] Comment on above: VITAMIN D STATUS 25( [place])VITAMIN D RANGE (ng/mL) Deficient <20 Insufficient 20 to <30Sufficient 30 to 100Reference: Melissa Green, Hernán BUNDY et al. Evaluation,treatment, and prevention of vitamin D deficiency; an Endocrine Society clinical practice guideline. JCEM. 2010; 96(7):1911-30. XR chest 2V*on 02-28-2023 XR chest 2V* [facility] [place] [address] [place] [address] XRay Report Signed Patient: Corie Courtney MR#: [id number] : 1950 Acct:[id number] Age/Sex: 72 / F ADM Date: 02/28/23 Loc: [place] Room: Type: [facility] Attending Dr: Delfina Trevino APRN, SLUDGE CONTROL OPERATOR-C Copies to: Delfina Trevino APRN,NAUN Ordering Provider: [...] Jeanna Denton M.D.02/28/2023 9:34 AM Dictation Location: [place] [address] Transcribed By: [facility] 02/28/23 0934 Dictated By: Jeanna Denton MD 02/28/23 0932 Signed By: 02/28/23 0934 Normal [facility] Albumin [Mass/volume] in Ser um or PlasmaOrdered By: Mark Avila on 05-12-2022 Albumin [Mass/Vol] 2.8 g/dL 3.2-5.5 [facility] Automated erythrocytes count in urine sediment (number/area)Ordered By: Mark Avila on 05-12-2022 RBC Auto (Urine sed) [#/Area] 3-4 [HPF] 0-4 [facility] Automated leukocytes count i n urine sediment (number/area)Ordered By: Mark Avila on 05-12-2022 WBC Auto (Urine sed) [#/Area] 3-4 [HPF] 0-4 [facility] Basophils Auto (Bld) [#/Vol] Ordered By: Mark Avila on 05-12-2022 Basophils (Bld) [#/Vol] 0.1 10*3/uL 0.0-0.2 [facility] Basophils/100 WBC Auto (Bld) Ordered By: Mark Avila on 05-12-2022 Basophils/100 WBC (Bld) 1.5 % . [facility] Bilirubin Test strip Ql (U)O rdered By: Mark Avila on 05-12-2022 Bilirubin Ql (U) Negative Negative [facility] Blood hemoglobin measurement (mass/volume)Ordered By: Mark Avila on 05-12-2022 Hemoglobin (Bld) [Mass/Vol] 9.4 g/dL 11.8-15.4 [facility] Blood leukocytes automated c ount (number/volume)Ordered By: Mark Avila on 05-12-2022 WBC (Bld) [#/Vol] 9.5 10*3/uL 4.5-11.0 [facility] C reactive protein [Mass/vol ume] in Serum or PlasmaOrdered By: Mark Avila on 05-12-2022 CRP [Mass/Vol] 7.1 mg/dL 0.0-1.0 [facility] Color Auto (U)Ordered By: Claudine Avila on 05-12-2022 Color (U) Yellow Yellow [facility] Creatinine and Glomerular fi ltration rate.predicted panel (S/P/Bld)Ordered By: Mark Avila on 05-12-2022 Creatinine [Mass/Vol] 1.92 mg/dL 0.44-1.03 [facility] Eosinophils Auto (Bld) [#/Vo l]Ordered By: Mark Avila on 05-12-2022 Eosinophils (Bld) [#/Vol] 1.1 10*3/uL 0.0-0.45 [facility] Eosinophils/100 WBC Auto (Bl d)Ordered By: Mark Avila on 05-12-2022 Eosinophils/100 WBC (Bld) 11.9 % . [facility] Erythrocyte distribution wid th Auto (RBC) [Ratio]Ordered By: Mark Avila on 05-12-2022 Erythrocyte distribution width (RBC) [Ratio] 17.4 % 11.9-15.3 [facility] Erythrocyte sedimentation ra te by Photometric methodOrdered By: Mark Avila on 05-12-2022 ESR Photometric method (Bld) [Velocity] 120 mm/hr 0-29 [facility] Estimated glomerular filtrat ion rate (GFR) non- AmericanOrdered By: Mark Avila on 05-12-2022 GFR/1.73 sq M.predicted among non-blacks MDRD (S/P/Bld) [Vol rate/Area] 26 mL/Min [facility] Globulin Calc (S) [Mass/Vol] Ordered By: Mark Avila on 05-12-2022 Globulin (S) [Mass/Vol] 3.9 g/dL [facility] Hematocrit Auto (Bld) [Volum e fraction]Ordered By: Mark Avila on 05-12-2022 Hematocrit (Bld) [Volume fraction] 29.1 % 34.0-46.4 [facility] Ketones Auto test strip (U) [Mass/Vol]Ordered By: Mark Avila on 05-12-2022 Ketones (U) [Mass/Vol] Trace Negative [facility] Laboratory - Chemistry and C hemistry - challengeOrdered By: Mark Avila on 05-12-2022 Amylase [Catalytic activity/Vol] 16 U/L 7-64 [facility] - Hematology and Cell countsOrdered By: Mark Avila on 05-12-2022 Nucleated RBC/100 WBC (Bld) [Ratio] 0.1 % 0-0.5 [facility] - UrinalysisOrder ed By: Mark Avila on 05-12-2022 Hyaline casts LM Ql (Urine sed) N/A [facility] Lymphocytes Auto (Bld) [#/Vo l]Ordered By: Mark Avila on 05-12-2022 Lymphocytes (Bld) [#/Vol] 2.0 10*3/uL 1.00-4.8 [facility] Lymphocytes/100 WBC Auto (Bl d)Ordered By: Mark Avila on 05-12-2022 Lymphocytes/100 WBC (Bld) 21.6 % . [facility] MCH Auto (RBC) [Entitic mass ]Ordered By: Mark Avila on 05-12-2022 MCH (RBC) [Entitic mass] 24.7 pg 24.7-34.3 [facility] MCHC Auto (RBC) [Mass/Vol]Or dered By: Mark Avila on 05-12-2022 MCHC (RBC) [Mass/Vol] 32.1 g/dL 32.0-35.0 [facility] MCV Auto (RBC) [Entitic vol] Ordered By: Mark Avila on 05-12-2022 MCV (RBC) [Entitic vol] 76.9 fL 80-100 [facility] Monocytes Auto (Bld) [#/Vol] Ordered By: Mark Avila on 05-12-2022 Monocytes (Bld) [#/Vol] 0.8 10*3/uL 0.0-0.8 [facility] Monocytes/100 WBC Auto (Bld) Ordered By: Mark Avila on 05-12-2022 Monocytes/100 WBC (Bld) 8.6 % . [facility] Neutrophils Auto (Bld) [#/Vo l]Ordered By: Mark Avila on 05-12-2022 Neutrophils (Bld) [#/Vol] 5.3 10*3/uL 1.8-7.7 [facility] Neutrophils/100 WBC Auto (Bl d)Ordered By: Mark Avila on 05-12-2022 Neutrophils/100 WBC (Bld) 56.4 % . [facility] Nitrite Test strip Ql (U)Ord ered By: Mark Avila on 05-12-2022 Nitrite Ql (U) Negative Negative [facility] No Panel InformationOrdered By: Mark Avila on 05-12-2022 Estimated GFR () 31 mL/Min [facility] Comment on above: GFR estimated refere nce range: According to KDOQI guidelines, <60 ml/min/1.73m2 is sufficient to diagnose a patient with chronic kidney disease. Pharmacy Creatinine Clearance (Chem N/A [facility] Total Complement (CH50) >60 U/mL >41 [facility] Comment on above: Age Male [...] determine out of range values. Performed at: [facility] [id number] [employer] Chipper: Stone Tucker PhD, Phone: [phone] Platelet mean volume Auto (B ld) [Entitic vol]Ordered By: Mark Avila on 05-12-2022 Platelet mean volume (Bld) [Entitic vol] 7.4 fL 6.3-10.7 [facility] Platelets Auto (Bld) [#/Vol] Ordered By: Mark Avila on 05-12-2022 Platelets (Bld) [#/Vol] 656 10*3/uL 150-450 [facility] Protein Auto test strip (U) [Mass/Vol]Ordered By: Mark Avila on 05-12-2022 Protein (U) [Mass/Vol] Trace mg/dL Negative [facility] Protein [Mass/volume] in Ser um or PlasmaOrdered By: Mark Avila on 05-12-2022 Protein [Mass/Vol] 6.7 g/dL 6.1-7.9 [facility] RBC Auto (Bld) [#/Vol]Ordere d By: Mark Avila on 05-12-2022 RBC (Bld) [#/Vol] 3.78 10*6/uL 3.60-5.00 [facility] Serum DNA double strand anti body assay (units/volume)Ordered By: Mark Avila on 05-12-2022 DNA double strand Ab Qn (S) [IU]/mL 0-9 [facility] Comment on above: Negative <5 Equivocal 5 - 9 Positive >9 Performed at: [facility] [employer] [id number] [employer]pper: Stone Tucker PhD, Phone: [phone] Serum Sjogrens syndrome-A ex tractable nuclear antibody assay (units/volume)Ordered By: Mark Avila on 05-12-2022 Sjogrens syndrome-A extractable nuclear Ab Qn (S) <0.2 AI 0.0-0.9 [facility] Serum or plasma alanine rajan otransferase measurement without P-5'-P (enzymatic activiOrdered By: Mark Avila on 05-12-2022 ALT No additional P-5'-P [Catalytic activity/Vol] 16 U/L 10-60 [facility] Serum or plasma albumin/glob ulin mass ratioOrdered By: Mark Avila on 05-12-2022 Albumin/Globulin [Mass ratio] 0.7 {ratio} [facility] Serum or plasma alkaline kim sphatase measurement (enzymatic activity/volume)Ordered By: Mark Avila on 05-12-2022 ALP [Catalytic activity/Vol] 117 U/L 32-92 [facility] Serum or plasma anion gap de terminationOrdered By: Mark Avila on 05-12-2022 Anion gap [Moles/Vol] 16.1 mmol/L 6.0-15.0 [facility] Serum or plasma aspartate am inotransferase measurement (enzymatic activity/volume)Ordered By: Mark Avila on 05-12-2022 AST [Catalytic activity/Vol] 18 U/L 10-42 [facility] Serum or plasma calcium ervin urement (mass/volume)Ordered By: Mark Avila on 05-12-2022 Calcium [Mass/Vol] 9.1 mg/dL 8.2-10.2 [facility] Serum or plasma chloride zhou surement (moles/volume)Ordered By: Mark Avila on 05-12-2022 Chloride [Moles/Vol] 94 mmol/L 95-114 [facility] Serum or plasma complement C 3 measurement (mass/volume)Ordered By: Mark Avila on 05-12-2022 Complement C3 [Mass/Vol] 135 mg/dL 82-167 [facility] Comment on above: Performed at: [address] [id number] [employer]pper: Stone Tucker PhD, Phone: [phone] Serum or plasma complement C 4 measurement (mass/volume)Ordered By: Mark Avila on 05-12-2022 Complement C4 [Mass/Vol] 28 mg/dL [facility] Serum or plasma glucose ervin urement (mass/volume)Ordered By: Mark Avila on 05-12-2022 Glucose [Mass/Vol] 85 mg/dL 70-100 [facility] Comment on above: ADA recommended refe rence range Random Glucose Reference Range is dependent on time and content of last meal. Glucose of more than 200 mg/dL in a nonstressed, ambulatory subject supports the diagnosis of Diabetes Mellitus. Serum or plasma intact parat hyroid hormone measurement (mass/volume)Ordered By: Mark Avila on 05-12-2022 Parathyrin.intact [Mass/Vol] 30.3 pg/mL [facility] Serum or plasma potassium me asurement (moles/volume)Ordered By: Mark Avila on 05-12-2022 Potassium [Moles/Vol] 5.4 mmol/L 3.5-5.1 [facility] Serum or plasma sodium measu rement (moles/volume)Ordered By: Mark Avila on 05-12-2022 Sodium [Moles/Vol] 126 mmol/L 136-146 [facility] Serum or plasma total biliru bin measurement (mass/volume)Ordered By: Mark Avila on 05-12-2022 Bilirubin [Mass/Vol] 0.4 mg/dL 0.3-1.2 [facility] Serum or plasma total carbon dioxide measurement (moles/volume)Ordered By: Mark Avila on 05-12-2022 CO2 [Moles/Vol] 21.3 mmol/L 22.0-30.0 [facility] Serum or plasma urea nitroge n measurement (mass/volume)Ordered By: Mark Avila on 05-12-2022 Urea nitrogen [Mass/Vol] 26 mg/dL 06-04 [facility] Serum or plasma uric acid me asurement (mass/volume)Ordered By: Mark Avila on 05-12-2022 Urate [Mass/Vol] 6.1 mg/dL 2.6-7.2 [facility] Specific gravity Auto test s trip (U) [Rel density]Ordered By: Mark Avila on 05-12-2022 Specific gravity (U) [Rel density] 1.016 1.001-1.030 [facility] Squamous epithelial cells de tection in urine sediment by light microscopyOrdered By: Mark Avila on 05-12-2022 Epithelial cells.squamous LM Ql (Urine sed) 3-4 [HPF] 0-2 [facility] TSH DL <= 0.005 mIU/L QnOrde red By: Mark Avila on 05-12-2022 TSH Qn 2.66 m[IU]/L 0.45-5.33 [facility] Urine bacteria detection by automated methodOrdered By: Mark Avila on 05-12-2022 Bacteria Auto Ql (U) None seen None Seen [facility] Urine clarity by refractomet ry automatedOrdered By: Mark Avila on 05-12-2022 Clarity Refractometry automated (U) Clear Clear [facility] Urine glucose measurement by automated test strip (mass/volume)Ordered By: Mark Avila on 05-12-2022 Glucose Auto test strip (U) [Mass/Vol] Normal mg/dL Normal [facility] Urine hemoglobin detection b y automated test stripOrdered By: Mark Avila on 05-12-2022 Hemoglobin Auto test strip Ql (U) Negative Negative [facility] Urine leukocyte esterase det ection by automated test stripOrdered By: Mark Avila on 05-12-2022 Leukocyte esterase Auto test strip Ql (U) 1+ Negative [facility] Urobilinogen Auto test strip (U) [Mass/Vol]Ordered By: Mark Avila on 05-12-2022 Urobilinogen (U) [Mass/Vol] Normal mg/dL Normal [facility] pH Auto test strip (U)Ordere d By: Mark Avila on 05-12-2022 pH (U) 5.5 [pH] 5.0-9.0 [facility] Urine culture routineOrdered By: Parvin Batres on 04-19-2022 Bacteria identified Cx Nom (U) Escherichia coli [facility] Basophils Auto (Bld) [#/Vol] Ordered By: Josué Alvarez on 04-18-2022 Basophils (Bld) [#/Vol] 0.1 10*3/uL 0.0-0.2 [facility] Basophils/100 WBC Auto (Bld) Ordered By: Josué Alvarez on 04-18-2022 Basophils/100 WBC (Bld) 1.0 % . [facility] Blood hemoglobin measurement (mass/volume)Ordered By: Josué Alvarez on 04-18-2022 Hemoglobin (Bld) [Mass/Vol] 9.2 g/dL 11.8-15.4 [facility] Blood leukocytes automated c ount (number/volume)Ordered By: Josué Alvarez on 04-18-2022 WBC (Bld) [#/Vol] 8.1 10*3/uL 4.5-11.0 [facility] Creatinine and Glomerular fi ltration rate.predicted panel (S/P/Bld)Ordered By: Josué Alvarez on 04-18-2022 Creatinine [Mass/Vol] 0.82 mg/dL 0.44-1.03 [facility] Eosinophils Auto (Bld) [#/Vo l]Ordered By: Josué Alvarez on 04-18-2022 Eosinophils (Bld) [#/Vol] 0.3 10*3/uL 0.0-0.45 [facility] Eosinophils/100 WBC Auto (Bl d)Ordered By: Josué Alvarez on 04-18-2022 Eosinophils/100 WBC (Bld) 3.3 % . [facility] Erythrocyte distribution wid th Auto (RBC) [Ratio]Ordered By: Josué Alvarez on 04-18-2022 Erythrocyte distribution width (RBC) [Ratio] 16.4 % 11.9-15.3 [facility] Estimated glomerular filtrat ion rate (GFR) non- AmericanOrdered By: Josué Alvarez on 04-18-2022 GFR/1.73 sq M.predicted among non-blacks MDRD (S/P/Bld) [Vol rate/Area] > 60 mL/Min [facility] Hematocrit Auto (Bld) [Volum e fraction]Ordered By: Josué Alvarez on 04-18-2022 Hematocrit (Bld) [Volume fraction] 27.5 % 34.0-46.4 [facility] Laboratory - Chemistry and C hemistry - challengeOrdered By: Josué Alvarez on 04-18-2022 Magnesium [Mass/Vol] 1.9 mg/dL 1.6-2.6 [facility] Laboratory - Hematology and Cell countsOrdered By: Josué Alvarez on 04-18-2022 Nucleated RBC/100 WBC (Bld) [Ratio] 0.1 % 0-0.5 [facility] Lymphocytes Auto (Bld) [#/Vo l]Ordered By: Josué Alvarez on 04-18-2022 Lymphocytes (Bld) [#/Vol] 1.8 10*3/uL 1.00-4.8 [facility] Lymphocytes/100 WBC Auto (Bl d)Ordered By: Josué Alvarez on 04-18-2022 Lymphocytes/100 WBC (Bld) 22.3 % . [facility] MCH Auto (RBC) [Entitic mass ]Ordered By: Josué Alvarez on 04-18-2022 MCH (RBC) [Entitic mass] 25.4 pg 24.7-34.3 [facility] MCHC Auto (RBC) [Mass/Vol]Or dered By: Josué Alvarez on 04-18-2022 MCHC (RBC) [Mass/Vol] 33.5 g/dL 32.0-35.0 [facility] MCV Auto (RBC) [Entitic vol] Ordered By: Josué Alvarez on 04-18-2022 MCV (RBC) [Entitic vol] 75.8 fL 80-100 [facility] Monocytes Auto (Bld) [#/Vol] Ordered By: Josué Alvarez on 04-18-2022 Monocytes (Bld) [#/Vol] 0.7 10*3/uL 0.0-0.8 [facility] Monocytes/100 WBC Auto (Bld) Ordered By: Josué Alvarez on 04-18-2022 Monocytes/100 WBC (Bld) 8.3 % . [facility] Neutrophils Auto (Bld) [#/Vo l]Ordered By: Josué Alvarez on 04-18-2022 Neutrophils (Bld) [#/Vol] 5.3 10*3/uL 1.8-7.7 [facility] Neutrophils/100 WBC Auto (Bl d)Ordered By: Josué Alvarez on 04-18-2022 Neutrophils/100 WBC (Bld) 65.1 % . [facility] No Panel InformationOrdered By: Josué Alvarez on 04-18-2022 Estimated GFR () > 60 mL/Min [facility] Comment on above: GFR estimated refere nce range: According to KDOQI guidelines, <60 ml/min/1.73m2 is sufficient to diagnose a patient with chronic kidney disease. Pharmacy Creatinine Clearance (Chem 46.00 [facility] Platelet mean volume Auto (B ld) [Entitic vol]Ordered By: Josué Alvarez on 04-18-2022 Platelet mean volume (Bld) [Entitic vol] 6.9 fL 6.3-10.7 [facility] Platelets Auto (Bld) [#/Vol] Ordered By: Josué Alvarez on 04-18-2022 Platelets (Bld) [#/Vol] 714 10*3/uL 150-450 [facility] RBC Auto (Bld) [#/Vol]Ordere d By: Josué Alvarez on 04-18-2022 RBC (Bld) [#/Vol] 3.63 10*6/uL 3.60-5.00 [facility] Serum or plasma calcium ervin urement (mass/volume)Ordered By: Josué Alvarez on 04-18-2022 Calcium [Mass/Vol] 9.3 mg/dL 8.2-10.2 [facility] Serum or plasma chloride zhou surement (moles/volume)Ordered By: Josué Alvarez on 04-18-2022 Chloride [Moles/Vol] 92 mmol/L 95-114 [facility] Serum or plasma glucose ervin urement (mass/volume)Ordered By: Josué Alvarez on 04-18-2022 Glucose [Mass/Vol] 92 mg/dL 70-100 [facility] Comment on above: ADA recommended refe rence range Random Glucose Reference Range is dependent on time and content of last meal. Glucose of more than 200 mg/dL in a nonstressed, ambulatory subject supports the diagnosis of Diabetes Mellitus. Serum or plasma potassium me asurement (moles/volume)Ordered By: Josué Alvarez on 04-18-2022 Potassium [Moles/Vol] 4.2 mmol/L 3.5-5.1 [facility] Serum or plasma sodium measu rement (moles/volume)Ordered By: Josué Alvarez on 04-18-2022 Sodium [Moles/Vol] 129 mmol/L 136-146 [facility] Serum or plasma total carbon dioxide measurement (moles/volume)Ordered By: Josué Alvarez on 04-18-2022 CO2 [Moles/Vol] 25.8 mmol/L 22.0-30.0 [facility] Serum or plasma urea nitroge n measurement (mass/volume)Ordered By: Josué Alvarez on 04-18-2022 Urea nitrogen [Mass/Vol] 15 mg/dL 9-23 [facility] Automated epithelial cells c ount in urine sediment (number/area)Ordered By: Parvin Batres on 04-17-2022 Epithelial cells Auto (Urine sed) [#/Area] 10-19 [HPF] 0-2 [facility] Automated erythrocytes count in urine sediment (number/area)Ordered By: Parvin Batres on 04-17-2022 RBC Auto (Urine sed) [#/Area] 5-9 [HPF] 0-4 [facility] Automated leukocytes count i n urine sediment (number/area)Ordered By: Parvin Batres on 04-17-2022 WBC Auto (Urine sed) [#/Area] Innumerable [HPF] 0-4 [facility] Bilirubin Test strip Ql (U)O rdered By: Parvin Batres on 04-17-2022 Bilirubin Ql (U) Negative Negative [facility] Cholesterol [Mass/volume] in Serum or PlasmaOrdered By: Parvin Batres on 04-17-2022 Cholesterol [Mass/Vol] 134 mg/dL 140-200 [facility] Comment on above: Chol less than 200 m g/dl low risk Chol 201-239 mg/dl borderline risk Chol 240 mg/dl and greater high risk Cholesterol in LDL Calc [Mas s/Vol]Ordered By: Parvin Batres on 04-17-2022 Cholesterol in LDL [Mass/Vol] 76 mg/dL 0-100 [facility] Comment on above: LDL ATP III CLASSIFI CATION LDL less than 100 mg/dL Optimal LDL 100-129 mg/dL Near or above optimal LDL 130-159 mg/dL Borderline high LDL 160-189 mg/dL High LDL greater than 189 mg/dL Very high Cholesterol in VLDL Calc [Ma ss/Vol]Ordered By: Parvin Batres on 04-17-2022 Cholesterol in VLDL [Mass/Vol] 13 mg/dL [facility] Color Auto (U)Ordered By: King Batres on 04-17-2022 Color (U) Yellow Yellow [facility] Glucose mean value [Mass/vol ume] in Blood Estimated from glycated hemoglobinOrdered By: Josué Alvarez on 04-17-2022 Average glucose Estimated from glycated hemoglobin (Bld) [Mass/Vol] 131 mg/dL [facility] Hemoglobin A1c percentageOrd ered By: Josué Alvarez on 04-17-2022 HbA1c (Bld) [Mass fraction] 6.2 % 4.3-5.6 [facility] Comment on above: Increased risk for d iabetes: 5.7 - 6.4 diabetes: >6.4 glycemic control for adults with diabetes: <7.0 Ketones Auto test strip (U) [Mass/Vol]Ordered By: Parvin Batres on 04-17-2022 Ketones (U) [Mass/Vol] Negative Negative [facility] Nitrite Test strip Ql (U)Ord ered By: Parvin Batres on 04-17-2022 Nitrite Ql (U) Negative Negative [facility] Protein Auto test strip (U) [Mass/Vol]Ordered By: Parvin Batres on 04-17-2022 Protein (U) [Mass/Vol] Negative Negative [facility] Serum or plasma high density lipoprotein (HDL) cholesterol measurementOrdered By: Parvin Batres on 04-17-2022 Cholesterol in HDL [Mass/Vol] 44 mg/dL 35-85 [facility] Comment on above: HDL CHOL ATP-III CLA SSIFICATION Cardiovascular Risk HDL > or equal to 60 mg/dL LOW HDL < 40 mg/dL HIGH Serum or plasma total choles terol/high density lipoprotein (HDL) cholesterol mass ratOrdered By: Parvin Batres on 04-17-2022 Cholesterol.total/Lisa sterol in HDL [Mass ratio] 3.0 {ratio} <5.0 [facility] Specific gravity Auto test s trip (U) [Rel density]Ordered By: Parvin Batres on 04-17-2022 Specific gravity (U) [Rel density] 1.013 1.001-1.030 [facility] Triglyceride [Mass/volume] i n Serum or PlasmaOrdered By: Parvin Batres on 04-17-2022 Triglyceride [Mass/Vol] 68 mg/dL 35-149 [facility] Comment on above: TRIG ATP [...] High sensitivity method [Mass/Vol] 435 pg/mL 0-15 [facility] Comment on above: Results called at 0847 on 04/17/22 Urine bacteria detection by automated methodOrdered By: Parvin Batres on 04-17-2022 Bacteria Auto Ql (U) 3+ None Seen [facility] Urine clarity by refractomet ry automatedOrdered By: Parvin Batres on 04-17-2022 Clarity Refractometry automated (U) Cloudy Clear [facility] Urine glucose measurement by automated test strip (mass/volume)Ordered By: Parvin Batres on 04-17-2022 Glucose Auto test strip (U) [Mass/Vol] Normal mg/dL Normal [facility] Urine hemoglobin detection b y automated test stripOrdered By: Parvin Batres on 04-17-2022 Hemoglobin Auto test strip Ql (U) Trace Negative [facility] Urine leukocyte esterase det ection by automated test stripOrdered By: Parvin Batres on 04-17-2022 Leukocyte esterase Auto test strip Ql (U) 4+ Negative [facility] Urobilinogen Auto test strip (U) [Mass/Vol]Ordered By: Parvin Batres on 04-17-2022 Urobilinogen (U) [Mass/Vol] Normal mg/dL Normal [facility] pH Auto test strip (U)Ordere d By: Parvin Batres on 04-17-2022 pH (U) 7.0 [pH] 5.0-9.0 [facility] Activated partial thrombopla stin time (aPTT) in platelet poor plasma by coagulation aOrdered By: Layo Sheridan on 04-16-2022 aPTT Coag (PPP) [Time] 30.5 s 25.1-36.5 [facility] Albumin [Mass/volume] in Ser um or PlasmaOrdered By: Layo Sheridan on 04-16-2022 Albumin [Mass/Vol] 2.6 g/dL 3.2-5.5 [facility] COVID CepheidOrdered By: Ana Ramirez on 04-16-2022 SARS-CoV-2 (COVID-19) Ab IA Ql Negative Negative [facility] Comment on above: This is a duplicate [employer] Xpress CoV-2/Flu/RSV Plus RNA by RT-PCR result to be used for statistical tracking purpose only. SARS-CoV-2 (COVID-19) RNA KIARRA+probe Ql (Unsp spec) [facility] Direct bilirubin measurement Ordered By: Layo Sheridan on 04-16-2022 Bilirubin.direct [Mass/Vol] mg/dL 0.0-0.4 [facility] Globulin Calc (S) [Mass/Vol] Ordered By: Layo Sheridan on 04-16-2022 Globulin (S) [Mass/Vol] 3.9 g/dL [facility] Laboratory - Chemistry and C hemistry - challengeOrdered By: Layo Sheridan on 04-16-2022 Natriuretic peptide B (Bld) [Mass/Vol] 118.0 pg/mL 5-100 [facility] Laboratory - CoagulationOrde red By: Layo Sheridan on 04-16-2022 PT Coag (PPP) [Time] 14.0 s 9.0-12.9 [facility] Platelet poor plasma interna tional normalized ratio (INR) by coagulation assay (relatOrdered By: Layo Sheridan on 04-16-2022 INR Coag (PPP) [Relative time] 1.2 {INR} [facility] Comment on above: INR Therapeutic Rang [...] on 04-16-2022 Protein [Mass/Vol] 6.5 g/dL 6.1-7.9 [facility] Serum or plasma alanine rajan otransferase measurement without P-5'-P (enzymatic activiOrdered By: Layo Sheridan on 04-16-2022 ALT No additional P-5'-P [Catalytic activity/Vol] 17 U/L 10-60 [facility] Serum or plasma albumin/glob ulin mass ratioOrdered By: Layo Sheridan on 04-16-2022 Albumin/Globulin [Mass ratio] 0.7 {ratio} [facility] Serum or plasma alkaline kim sphatase measurement (enzymatic activity/volume)Ordered By: Layo Sheridan on 04-16-2022 ALP [Catalytic activity/Vol] 85 U/L 32-92 [facility] Serum or plasma aspartate am inotransferase measurement (enzymatic activity/volume)Ordered By: Layo Sheridan on 04-16-2022 AST [Catalytic activity/Vol] 17 U/L 10-42 [facility] Serum or plasma non-glucuron idated bilirubin measurement (mass/volume)Ordered By: Layo Sheridan on 04-16-2022 Bilirubin.indirect [Mass/Vol] TNP [facility] Comment on above: Test not performed Serum or plasma total biliru bin measurement (mass/volume)Ordered By: Layo Sheridan on 04-16-2022 Bilirubin [Mass/Vol] 0.4 mg/dL 0.3-1.2 [facility] XR knee LT 4V*on 01-29-2022 XR knee LT 4V* [facility] [employer] Other XR knee LT 4V* [facility] [employer] Other XR knee LT 4V* [address] [place] [address] [employer] Other XR knee LT 4V* [place] [address] No rt [employer] Other XR knee LT 4V* XRay Report [employer] Other XR knee LT 4V* Signed [employer] Other XR knee LT 4V* Patient: Corie Courtney MR#: [id number] [place] [employer] Other XR knee LT 4V* [id number] [employer] Other XR knee LT 4V* : 1950 Acct:[id number] [employer] Other XR knee LT 4V* Age/Sex: 71 / F ADM Date: 01/29/22 [employer] Other XR knee LT 4V* Loc: XDUCLY Room: Type: REG CLI [employer] Other XR knee LT 4V* Attending Dr: Estelita ACEVEDO [employer] Other XR knee LT 4V* Ordering Provider: CURTIS Bhardwaj [employer] Other XR knee LT 4V* Date of Service: 01/29/22 [employer] Other XR knee LT 4V* XR/XR knee LT 4V*: LEFT KNEE PAIN [employer] Other XR knee LT 4V* Copies to: Estelita Sheridan, SLUDGE CONTROL OPERATOR-C [employer] Other XR knee LT 4V* LEFT KNEE - 4 views N [employer] Other XR knee LT 4V* CLINICAL HISTORY: Left knee pain and swelling for 2 months. No known trauma. [employer] Other XR knee LT 4V* COMPARISON: None Nort [employer] Other XR knee LT 4V* FINDINGS: [employer] Other XR knee LT 4V* Large knee joint effusion with likely Ness's cyst. Vascular calcifications. Bones are grossly [employer] Other XR knee LT 4V* demineralized. No acute bony process. Minimal degenerative change. No significant joint space [employer] Other XR knee LT 4V* narrowing. [employer] Other XR knee LT 4V* XR/XR knee LT 4V* [employer] Other XR knee LT 4V* IMPRESSION: [employer] Other XR knee LT 4V* LARGE KNEE JOINT EFFUSION WITH PRESUMED NESS'S CYST NOTED. MINIMAL DEGENERATIVE CHANGE. NO ACUTE [employer] Other XR knee LT 4V* BONY PROCESS. [employer] Other XR knee LT 4V* Impression dictated by: Obie Chaidez Jr., D.O.01/29/2022 5:02 PM [employer] Other XR knee LT 4V* Dictation Location: [place] [address] [employer] Other XR knee LT 4V* Transcribed By: PWS 01/29/22 1702 [employer] Other XR knee LT 4V* Dictated By: Obie Chaidez Jr DO 01/29/22 1701 [facility] [employer] Other XR knee LT 4V* Signed By: [facility] t [employer] Other XR knee LT 4V* 01/29/22 1702 [facility] [employer] Other XR WRIST LT MIN 3 Von 2018 XR WRIST LT MIN 3 V Patient: CORIE COURTNEY Exam Date: 01/15/2019 : 1950 Gender:F Ordering : DR. GUME RODRIGUEZ M.D. Admission #: [id number] Family : Order #: [id number] CLICK HERE TO VIEW EXAM RADIOLOGY REPORT [...] Sheehan M.D. on 01/15/2019 at 08:27 Normal [facility] Vital Signs Date Time Vital Sign Value Performing Clinician Facility 11-06-2023 18:21-0500 Diastolic blood pressure 83 mm[Hg] Services [employer] Work Phone: [facility] 11-06-2023 18:21-0500 Heart rate 87 /min Services [employer] Work Phone: [facility] 11-06-2023 18:21-0500 Respiratory rate 18 /min Services [employer] Work Phone: [facility] 11-06-2023 18:21-0500 SaO2% (BldA) [Mass fraction] 99 % Services [employer] Phone: [facility] 11-06-2023 18:21-0500 Systolic blood pressure 141 mm[Hg] Services [facility] Work Phone: [facility] 11-06-2023 18:07-0500 Body height 149.86 cm Services [facility] [employer] Work Phone: [facility] 11-06-2023 18:07-0500 Body weight 45.4 kg Services [facility] [employer] Work Phone: [facility] 11-06-2023 16:44-0500 Body temperature 97.9 [degF] Services [facility] [employer] Work Phone: [facility] 03-22-2023 09:00-0400 Body height 149.86 cm Joy Kaiser Other [employer] [facility] [employer] Other 03-22-2023 09:00-0400 Body mass index (BMI) [Ratio] 19.59 kg/m2 Joy Kaiser Other [employer] Other 03-22-2023 09:00-0400 Body temperature 96.4 [degF] Joy Kaiser Other [employer] Other 03-22-2023 09:00-0400 Body weight 44 kg Joy Kaiser Other [employer] Other 03-22-2023 09:00-0400 Diastolic blood pressure 84 mm[Hg] Joy Kaiser Other [employer] Other 03-22-2023 09:00-0400 Respiratory rate 20 /min Joy Kaiser Other [employer] Other 03-22-2023 09:00-0400 SaO2% (BldA) [Mass fraction] 97 % Joy Kaiser Other [employer] Other 03-22-2023 09:00-0400 Systolic blood pressure 158 mm[Hg] Joy Kaiser Other [facility] [employer] Other 03-04-2023 08:13-0400 Body height 152.4 cm Delfina Trevino Work Phone: [facility]Lhwehdnrjs-Olyirx [place] 250 DO Work Phone: 03-04-2023 08:13-0400 Body mass index (BMI) [Ratio] 18.75 kg/m2 Delfina Trevino Work Phone: EL-Kdnjtoswnx-Oqlofg [place] 250 DO Work Phone: 03-04-2023 08:13-0400 Body surface area Derived from formula 1.37 m2 Delfina Trevino Work Phone: BJ-Mnqfqwszxw-Tyzcov [place] 250 DO Work Phone: 03-04-2023 08:13-0400 Body weight 43.55 kg Delfina Trevino Work Phone: KL-Egjmmlnonx-Jpmnid [place] 250 DO Work Phone: 03-04-2023 08:13-0400 Diastolic blood pressure 68 mm[Hg] Delfina Trevino Work Phone: TK-Wpbdikdyix-Ppgwok [place] 250 DO Work Phone: 03-04-2023 08:13-0400 Heart rate 83 /min Delfina Trevino Work Phone: SK-Itxsladtzn-Vwaykv [place] 250 DO Work Phone: 03-04-2023 08:13-0400 Systolic blood pressure 122 mm[Hg] Delfina Trevino Work Phone: DT-Grzjuyjkte-Fdbzmg [place] 250 DO Work Phone: 02-28-2023 09:46-0400 Diastolic blood pressure 77 mm[Hg] [employer]IV[employer]ITY [employer] Delfina Trevino Work Phone: [facility] 02-28-2023 09:46-0400 Heart rate 90 /min [employer] Delfina Myerholtz Work Phone: [facility] 02-28-2023 09:46-0400 Systolic blood pressure 133 mm[Hg] UNIVERSITY [employer] Delfina Myerholtz Work Phone: [facility] 02-28-2023 09:44-0400 Body height 152.4 cm UNIVERSITY [employer] Delfina Myerholtz Work Phone: [facility] 02-28-2023 09:44-0400 Body weight 45.35 kg UNIVERSITY [employer]ER Delfina Myerholtz Work Phone: [facility] 02-28-2023 00:00-0400 93 1 Jaquelin Connell MD Work Phone: [facility] 600 DO Work Phone: Comment on above: [id number] 12-16-2022 16:50-0400 Body temperature 98.3 [degF] UNIVERSITY [employer]ER Delfina Myerholtz Work Phone: [facility] 12-16-2022 16:50-0400 Diastolic blood pressure 90 mm[Hg] UNIVERSITY [employer]ER Delfina Myerholtz Work Phone: [facility] 12-16-2022 16:50-0400 Heart rate 91 /min [employer]IVERSITY [employer] Delfina Myerholtz Work Phone: [facility] 12-16-2022 16:50-0400 Respiratory rate 20 /min [employer]IVERSITY [employer] Delfina Myerholtz Work Phone: [facility] 12-16-2022 16:50-0400 SaO2% (BldA) [Mass fraction] 100 % UNIVERSITY L[employer]ER Delfina Myerholtz Work Phone: [facility] 12-16-2022 16:50-0400 Systolic blood pressure 180 mm[Hg] UNIVERSITY LECTURER Delfina Myerholtz Work Phone: [facility] 12-16-2022 16:49-0400 Body height 152.4 cm IFTIKHAR Trevino Work Phone: [facility] 12-16-2022 16:49-0400 Body weight 48.98 kg IFTIKHAR Trevino Work Phone: [facility] 09-22-2022 16:20-0500 Body height 152.4 cm Linda Mccarthys Other [employer] Other 09-22-2022 16:20-0500 Body mass index (BMI) [Ratio] 19.76 kg/m2 Aznayeli Mccarthys Other [employer] Other 09-22-2022 16:20-0500 Body temperature 97.4 [degF] Aznayeli Mccarthys Other [employer] Other 09-22-2022 16:20-0500 Body weight 45.9 kg Aznayeli Mccarthys Other [employer] Other 09-22-2022 16:20-0500 Diastolic blood pressure 82 mm[Hg] Aziz Sharis Other [employer] Other 09-22-2022 16:20-0500 Respiratory rate 18 /min Aznayeli Mccarthys Other [employer] Other 09-22-2022 16:20-0500 SaO2% (BldA) [Mass fraction] 96 % Aznayeli Bakhous Other [employer] Other 09-22-2022 16:20-0500 Systolic blood pressure 130 mm[Hg] Aziz Bakhous Other [employer] Other 04-18-2022 11:34-0400 Heart rate 71 /min [employer] Delfina Myerholtz Work Phone: [facility] 04-18-2022 11:34-0400 Respiratory rate 20 /min [employer] Delfina Myerholtz Work Phone: [facility] 04-18-2022 11:11-0400 Body temperature 97.2 [degF] UNIVERSITY [employer]ER Delfina Myerholtz Work Phone: [facility] 04-18-2022 11:11-0400 Diastolic blood pressure 68 mm[Hg] UNIVERSITY L[employer]ER Delfina Myerholtz Work Phone: [facility] 04-18-2022 11:11-0400 SaO2% (BldA) [Mass fraction] 98 % UNIVERSITY L[employer]ER Delfina Myerholtz Work Phone: [facility] 04-18-2022 11:11-0400 Systolic blood pressure 100 mm[Hg] UNIVERSITY [employer] Delfina Myerholtz Work Phone: [facility] 04-18-2022 04:48-0400 Body weight 45 kg UNIVERSITY L[employer]ER Delfina Myrioholtz Work Phone: [facility] 04-17-2022 00:00-0400 70 1 Jaquelin Connell MD Work Phone: [facility] 250 DO Work Phone: Comment on above: [id number] 04-16-2022 23:00-0400 Body height 152.4 cm UNIVERSITY [employer] Delfina Myerholtz Work Phone: [facility] 01-29-2022 17:20-0400 Body height 152.4 cm Estelita Sheridan Other [facility] [employer] Other 01-29-2022 17:20-0400 Body mass index (BMI) [Ratio] 19.49 kg/m2 Estelita Sheridan Other [employer] Other 01-29-2022 17:20-0400 Body temperature 98 [degF] Estelita Sheridan Other [employer] Other 01-29-2022 17:20-0400 Body weight 45.27 kg Estelita Sheridan Other [employer] Other 01-29-2022 17:20-0400 Diastolic blood pressure 77 mm[Hg] Estelita Sheridan Other [employer] Other 01-29-2022 17:20-0400 Respiratory rate 18 /min Estelita Sheridan Other [employer] Other 01-29-2022 17:20-0400 SaO2% (BldA) [Mass fraction] 97 % Estelita Sheridan Other [employer] Other 01-29-2022 17:20-0400 Systolic blood pressure 131 mm[Hg] Estelita Sheridan Other [employer] Other Encounters Encounter Date Encounter Type Care Provider Facility Start: 02-01-2024 End: 02-01-2024 ambulatory Services [facility] Work Phone: [facility] [employer] [facility] Work Phone: Start: 02-01-2024 End: 02-01-2024 Departed Referred Services [facility] Work Phone: [facility] Start: 11-06-2023 End: 11-06-2023 Emergency department patient visit Services [facility] Work Phone: [facility] Work Phone: Start: 11-02-2023 End: 11-02-2023 ambulatory Delfina Trevino [facility] Work Phone: Start: 11-02-2023 End: 11-02-2023 Departed Referred IFTIKHAR Trevino Work Phone: [facility] Start: 10-31-2023 End: 11-01-2023 ambulatory Andrius Vytautas [facility]icaeditis [facility] Start: 10-17-2023 End: 10-18-2023 ambulatory Andrius Vytautas Giedraitis Facility:[facility] Start: 06-20-2023 End: 06-21-2023 ambulatory Andrius Vytautas Giedraitis [facility] Start: 05-23-2023 End: 05-24-2023 ambulatory Andrius Vytautas Jesicaedraitis Facility:[facility] Start: 03-22-2023 End: 03-22-2023 ambulatory Joy Kaiser Other [employer] Other Start: 03-22-2023 Office outpatient ne w 45 minutes Joy Kaiser [facility] Start: 03-07-2023 End: 03-07-2023 Patient encounter procedure IFTIKHAR Trevino Work Phone: [facility] Work Phone: Start: 03-07-2023 End: 03-07-2023 ambulatory Delfina Trevino Facility:[facility] Start: 03-07-2023 End: 03-07-2023 Patient encounter procedure IFTIKHAR Trevino Work Phone: [facility] Work Phone: Start: 03-07-2023 End: 03-07-2023 ambulatory IFTIKHAR Trevino Work Phone: [facility] Work Phone: Start: 03-04-2023 NPVRFRL, Provider: Jaquelin Connell, Status: Pen, Time: 8:20 AM Jaquelin Connell MD Work Phone: -[facility] 600 DO Work Phone: Start: 03-04-2023 Office consultation new/estab patient 60 min Delfina Mae Belinda Work Phone: HI-Kqvywpfnpu-Sjwyluef 250 DO Work Phone: Start: 03-04-2023 ambulatory Ms. Delfina Thomas Belinda Facility: Start: 03-03-2023 AUDIT Jaquelin de jesus MD Work Phone: -[facility] 600 DO Work Phone: Start: 02-28-2023 ambulatory Ms. Delfina Thomas Belinda Facility:[id number] Start: 02-28-2023 End: 02-28-2023 Patient encounter procedure UNIVERSITY LECTURER Delfina Belinda Work Phone: [facility] [place] Work Phone: Start: 02-28-2023 End: 02-28-2023 ambulatory UNIVERSITY LECTURER Delfina Mae Belinda Work Phone: [facility] Work Phone: Start: 12-16-2022 End: 12-16-2022 Emergency department patient visit UNIVERSITY LECTURER Delfina Belinda Work Phone: [facility] Work Phone: Start: 09-22-2022 End: 09-22-2022 ambulatory Linda Fontanez Other [facility] [employer] Other Start: 09-22-2022 Office outpatient ne w 30 minutes Aziz Bakdanas [facility] Start: 05-12-2022 End: 05-12-2022 Patient encounter procedure UNIVERSITY LECTURER Delfina Belinda Work Phone: [facility] [address] Start: 04-19-2022 Telephone encounter Jaquelin ha MD Work Phone: [facility] 250 DO Work Phone: Start: 04-16-2022 End: 04-18-2022 Evaluation and management of inpatient UNIVERSITY LECTURER Delfina Trevino Work Phone: [facility] [place] [facility] Start: 01-29-2022 End: 01-29-2022 ambulatory Estelita Sheridan Other [facility] [employer] Other Start: 01-29-2022 Office outpatient vi sit 15 minutes Estelita Sheridan [facility] Start: 01-15-2019 End: 01-15-2019 Patient encounter procedure [facility] Facility: Patient encounter status Delfina Trevino Work Phone: BM-[id number]-Iwxpmskk 250 DO Work Phone: Procedures Date Procedure Procedure Detail Performing Clinician Start: 03-07-2023 Dual energy X-ray absorptiometry UNIVERSITY LECTURER Delfina Trevino Work Phone: Start: 02-28-2023 Radionuclide myocard ial perfusion stress study UNIVERSITY LECTURER Delfina Trevino Work Phone: Start: 02-28-2023 Plain chest X-ray UNIVERSITY LECTURER Delfina Trevino Work Phone: Start: 12-16-2022 Plain X-ray of right hip UNIVERSITY LECTURER Delfina Trevino Work Phone: Start: 05-12-2022 X-ray of both ankles AP RN Delfina Trevino Work Phone: Start: 05-12-2022 X-ray of both feet UNIVERSITY LECTURER Delfina Trevino Work Phone: Start: 04-16-2022 Duplex scan of lower limb veins UNIVERSITY LECTURER Delfina Trevino Work Phone: Start: 04-16-2022 Plain chest X-ray UNIVERSITY LECTURER Delfina Belinda Work Phone: section Delfina Mae Belinda Work Phone: Excision of basal ce ll carcinoma Delfina Mae Belinda Work Phone: Operative procedure on foot Delfina Mae Belinda Work Phone: Operative procedure on wrist Delfina Mae Belinda Work Phone: SARS-CoV-2, Influenz a & RSV (PCR) UNIVERSITY LECTURER Delfina Belinda Work Phone: Tonsillectomy Delfina Mae Samantha barrera Work Phone: Urine culture UNIVERSITY LECTURER Delfina Belinda Work Phone: Plan of Treatment Date Care Activity Detail Author Start: 02-28-2023 Radionuclide myocard ial perfusion stress study NM jony perf SPECT rest & str [facility] Start: 05-12-2022 Hemolytic complement CH50 level [facility] Work Phone: Start: 05-12-2022 [facility] Work Phone: Start: 05-12-2022 X-ray of both ankles XR ankle BI 2V [facility] Start: 05-12-2022 X-ray of both feet XR foot BI 2V [facility] Start: 05-12-2022 End: 05-12-2022 Patient encounter procedure Departed Clinical [facility] [address] Start: 04-18-2022 [facility] Work Phone: Start: 04-16-[address] [facility] Work Phone: Start: 04-16-2022 Referral to insurance claims specialist [facility] Work Phone: Start: 04-16-2022 Hospital admission [facility] Work Phone: Alkaline phosphatase - bone isoenzyme measurement [facility] Work Phone: Alkaline phosphatase [Enzymatic activity/volume] in Serum or Plasma [facility] Work Phone: Alkaline phosphatase isoenz panel - Serum or Plasma [facility] Work Phone: Blood chemistry [facility] Work Phone: Intestinal alkaline phosphatase measurement [facility] Work Phone: Patient Education [facility] Work Phone: Patient referral [facility] Work Phone: Immunizations Immunization Date Immunization Notes Care Provider Fa cili 08-03-2021 influenza, injectabl e, quadrivalent, contains preservative Jaquelin Connell MD Work Phone: [facility] [employer] DO Work Phone: 05-14-2020 influenza, injectabl e, quadrivalent, contains preservative Jaquelin Connell MD Work Phone: [facility] 600 DO Work Phone: 2019 pneumococcal polysaccharide vaccine, 23 valent Jaquelin Connell MD Work Phone: [facility] 600 DO Work Phone: 08-01-2019 influenza, injectabl e, quadrivalent, contains preservative Jaquelin Connell MD Work Phone: [facility] 600 DO Work Phone: 06-06-2018 pneumococcal conjuga te vaccine, 13 valluke Connell MD Work Phone: [facility] 600 DO Work Phone: 05-29-2018 pneumococcal conjuga te vaccine, 13 kim Connlel MD Work Phone: [facility] 600 DO Work Phone: 07-23-2016 influenza, seasonal, injectable, preservative free Jaquelin Connell MD Work Phone: [facility] 600 DO Work Phone: 07-23-2016 pneumococcal polysaccharide vaccine, 23 valent Jaquelin Connell MD Work Phone: [facility] 600 DO Work Phone: 05-18-2014 tetanus and diphther ia toxoids, adsorbed, preservative free, for adult use (5 Lf of tetanus toxoid and 2 Lf of diphtheria toxoid) Jaquelin Connell MD Work Phone: [facility] 600 DO Work Phone: Payers Date Payer Category Payer Self-pay [id number] 2023 Unknown [id number] 2022 Private Health Insurance [id number] 2021 Medicare [id number] 1959 Medicare [id number] 1950 Unknown [id number] 1950 Unknown [id number] [id number] 1950 Unknown [id number] [id number] 1950 Unknown [id number] [id number] 1950 Unknown [id number] [id number] 1950 Unknown [id number] [id number] 1950 Unknown [id number] [id number] Medicaid [place] [employer] [id number] Unknown Unknown [place] YOHAN [id number] Unknown [id number] [id number] Unknown [id number] [id number] Unknown [id number] [id number] Unknown [id number] [id number] Unknown [id number] [id number] Unknown [id number] [id number] Social History Date Type Detail Facility Sex Assigned At [facility] Other Start: 04-17-2022 End: 11-06-2023 Tobacco smoking status PAIS Smoker (finding) [facility] Start: 1950 Sex Assigned At Female F [facility] Occasional alcohol use Occasional alcohol use [facility]-Tisvpejlgi-Gjrdgofd 250 DO Work Phone: Comment on above: 1 Pot of coffee amy y; 1 PPD; Goals Date Patient Goal Desired Activity /State Functional Status Date Assessment Result Facility 04-18-2022 Functional status Patient is Pro gressing Toward Baseline [facility] Work Phone: Mental Status Date Assessment Result Facility 04-18-2022 Cognitive function Cognitive Sta tus Patient at Baseline [facility] Work Phone: Clinical Notes 01-29-2022 to [...] all NSAIDs due to advanced kidney disease [facility] Other 08-07-2022 Consult note Author Jauqelin Connell [facility] April 18, 2022 9:21am Note Date/Time April 17, 2022 1:2 5pm [facility] [address] [place] [address] Cardiology Consult Note Signed Patient: Corie Courtney MR#: [id number] : 1950 Acct:[id number] Age/Sex: 71 / F Adm Date: 2 Loc: 3T Room: [address] [place] [address] Type: ADM INOo Attending Dr: Parvin Batres MD Copies to: MD Delfina Block APRN,ASSEMBLY LINE UPHOLSTERER Jaquelin Connell MD~ Cardiology HPI History of [...] History (Updated 04/17/22 @ 03:06 by Juan Cook, RN) Brother Rheumatoid aortitis Suicidal intent Mother [...] DAILY 04/16/22 [History Confirmed 04/16/22] glucosamine 750 gz-uuhkbh-hlb 2-C 30 mg-D3 1,000 unit-jane 1 mg tablet (Ghwarfwrxdt-Srcyggnupty-YAS + vitD) 1 tab PO DAILY 04/16/22 [...] Lymph # (Auto) 2.8 1.9 (1.00-4.8) x10E3/uL Real # (Auto) 0.8 0.6 (0.0-0.8) x10E3/uL Eos [...] 500 / 600 Output Total 177 / 177 Balance 0 / 0 -1675 / -1175 [...] <Electronically signed by MD Jaquelin Connell> 04/18/22 0996 [facility] Work Phone: 1(502) 332-541708-07-2022 Progress note Author Parvin Batres [facility] April 18, 2022 9:07am Note Date/Time April 18, 2022 9:0 2am [facility] [address] [place] [address] Hospitalist Progress Note Signed Patient: Corie Courtney MR#: [id number] : 1950 Acct:[id number] Age/Sex: 71 / F Adm Date: 2 Loc: Room: [address] [place] [address] Type: ADM INOo Attending Dr: Parvin Batres [...] signed by Parvin Batres MD> 04/18/22 0907 [facility] Work Phone: 1(850) 478-436908-06-2022 Progress note Author Parvin Batres [facility] April 17, 2022 9:03am Note Date/Time April 17, 2022 8:5 6am [facility] [address] [place] [address] Hospitalist Progress Note Signed Patient: Corie Courtney MR#: [id number] : 1950 Acct:[id number] Age/Sex: 71 / F Adm Date: 2 Loc: Room: [address] [place] [address] Type: ADM INOo Attending Dr: Parvin Batres [...] signed by Parvin Batres MD> 04/17/22 0903 [facility] Work Phone: 1(170) 689-422508-05-2022 History and physical note Author Josué Alvarez [facility] April 16, 2022 9:42pm Note Date/Time April 16, 2022 9:4 0pm [facility] [address] [place] [address] Hospitalist H&P Signed Patient: Corie Courtney MR#: [id number] : 1950 Acct:[id number] Age/Sex: 71 / F Adm Date: 2 Loc: Room: [address] [place] [address] Type: ADM INOo Attending Dr: Josué Alvarez DO Copies to: Delfina Trevino APRN,ASSEMBLY LINE UPHOLSTERER Josué Alvarez, DO~ HPI DATE OF EXAMINATION: [...] % (Auto) 30.4 % (.) 04/16/22 18:10 Real % (Auto) 8.6 % (.) 04/16/22 18:10 Eos % (Auto) 3.7 % (.) 04/16/22 18:10 Baso % (Auto) 1.4 % (.) 04/16/22 18:10 Neut # (Auto) 5.1 x10E3/uL (1.8-7.7) 04/16/22 18:10 Lymph # (Auto) 2.8 x10E3/uL (1.00-4.8) 04/16/22 18:10 Real # (Auto) 0.8 x10E3/uL (0.0-0.8) 04/16/22 18:10 [...] <Electronically signed by Josué Alvarez DO> 04/16/222141 [facility] Work Phone: 1(615) 621-565906-23-2022 History of Present illness Narrative* The patient [...] follow-up on as-needed basis on her request NP-Smxqehdjwt-Npvqarid [employer] DO Work Phone: 1(871) 654-278505-20-2022 Evaluation note* Encounter Date Diagnosis Assessment Notes [...] January, Other Ness's cyst material was printed [facility] Other Chief complaint Narrative - Terrance COURTNEY is being seen for a consultation for POC.HP-Yajvelxiak-Moorhsbf 670 DO Work Phone: Consult note Author Jaquelin Connell [facility] April 18, 2022 9:21am Note Date/Time April 17, 2022 1:2 5pm [facility] [address] [place] [address] Cardiology Consult Note Signed Patient: Corie Courtney MR#: [id number] : 1950 Acct:[id number] Age/Sex: 71 / F Adm Date: 2 Loc: 3T Room: [address] [place] [address] Type: ADM INOo Attending Dr: Parvin Batres MD Copies to: MD Delfina Block,UNIVERSITY LECTURER,ASSEMBLY LINE UPHOLSTERER Jaquelin Connell MD~ Cardiology HPI History of [...] History (Updated 04/17/22 @ 03:06 by Juan Cook, RN) Brother Rheumatoid aortitis Suicidal intent Mother [...] DAILY 04/16/22 [History Confirmed 04/16/22] glucosamine 750 bm-iwpxed-drv 2-C 30 mg-D3 1,000 unit-jane 1 mg tablet (Vufunufstem-Bxirdhadbjg-FQS + vitD) 1 tab PO DAILY 04/16/22 [...] Lymph # (Auto) 2.8 1.9 (1.00-4.8) x10E3/uL Real # (Auto) 0.8 0.6 (0.0-0.8) x10E3/uL Eos [...] 600 500 / 600 Output: Urine 1774 / 1775 Other: # Voids 2 # [...] signed by MD Jaquelin Connell> 04/18/22 0921 [facility] Work Phone: Discharge summary Author Parvin Batres [facility] April 18, 2022 5:54pm Note Date/Time April 18, 2022 5:5 4pm [facility] [address] [place] [address] Discharge Summary Signed Patient: Corie Courtney MR#: [id number] : 1950 Acct:[id number] Age/Sex: 71 / F Adm Date: 2 Loc: Room: [address] [place] [address]: Parvin Batres MD Copies to: MD Delfina Block,UNIVERSITY LECTURER,ASSEMBLY LINE UPHOLSTERER~ Providers Date of Discharge: 04/18/22 Discharging Provider: [...] % (Auto) 65.1, Lymph % (Auto) 22.3, Real % (Auto) 8.3, Eos % (Auto) 3.3, Baso % (Auto) 1.0, Neut # (Auto) 5.3, Lymph # (Auto) 1.8, Real # (Auto) 0.7, Eos # (Auto) 0.3, [...] BY MOUTH EVERY DAY FOR 90 DAYS Shgskpxw-Ovbpku-LRR with vit D 750-30-1,000-1 zt-mc-pmug-mg Tablet 1 tab PO DAILY ibuprofen 200 [...] to confirm date/time. ) Delfina Trevino APRN, SLUDGE CONTROL OPERATOR-C [Primary Care Provider] - (Call office on Tuesday to schedule follow-up with your Primary Care Provider in 3-5 days. ) Documented By: Parvin Batres MD 04/18/22 1470 Signed By: <Electronically signed by Parvin Batres MD> 04/18/22 7197 [facility] Work Phone: Evaluation note* Diagnosis Onset Date Resolution Status Acute diastolic heart failure acute COPD (chronic obstructive pulmonary disease) acute Edema, peripheral acute Elevated blood pressure reading acute Elevated troponin acute History of stroke acute Hyperlipidemia acute Hypertension acute Leg swelling acute Myocardial infarction type 2 acute Tobacco abuse acute [facility] Work Phone: Evaluation noteNo assessment information available [facility] Work Phone: evaluawwoj noteNorth [employer] Other History and physical note Author Josué Alvarez [facility] April 16, 2022 9:42pm Note Date/Time April 16, 2022 9:4 0pm [facility] [address] [place] [address] Hospitalist H&P Signed Patient: Corie Courtney MR#: [id number] : 1950 Acct:[id number] Age/Sex: 71 / F Adm Date: 2 Loc: Room: [address] [place] [address] Type: ADM INOo Attending Dr: Josué Alvarez DO Copies to: Delfina Trevino APRN,ASSEMBLY LINE UPHOLSTERER Josué Alvarez, ~ HPI DATE OF EXAMINATION: [...] mg PO DAILY 30 days #30 tabs 10/17/20 [Rx Confirmed 04/16/22] cholecalciferol (vitamin D3) 25 [...] % (Auto) 30.4 % (.) 04/16/22 18:10 Real % (Auto) 8.6 % (.) 04/16/22 18:10 Eos % (Auto) 3.7 % (.) 04/16/22 18:10 Baso % (Auto) 1.4 % (.) 04/16/22 18:10 Neut # (Auto) 5.1 x10E3/uL (1.8-7.7) 04/16/22 18:10 Lymph # (Auto) 2.8 x10E3/uL (1.00-4.8) 04/16/22 18:10 Real # (Auto) 0.8 x10E3/uL (0.0-0.8) 04/16/22 18:10 [...] <Electronically signed by Josué Alvarez DO> 04/16/222141 [facility] Work Phone: Hisbqyw general Narrative - Reported* Type Description Date Medical History HTN Medical History hypercholesterolemia Medical History Arthritis Surgical History Left Foot Surgery Hospitalization History Stroke 2019 [place] [facility] [employer] Other History general Narrative - Reported* Type [...] History BASAL CELL CANCER Hospitalization History Stroke 2020 Hospitalization History SEE ABOVE Hospitalization History EDEMA 2021 [facility] Other History general [facility] - [facility] Other Hospital Discharge instructions Additional Instructions Increase salt in your diet Increased pain with vegetables Follow-up with PCP call tomorrow for appointment Please return here if you develop any dizziness, chest pain, shortness of breath or any other concerns[facility] Work Phone: Progress note Author Parvin Batres [facility] April 17, 2022 9:03am Note Date/Time April 17, 2022 8:5 6am [facility] [address] [place], [place] [address] Hospitalist Progress Note Signed Patient: Corie Courtney MR#: [id number] : 1950 Acct:[id number] Age/Sex: 71 / F Adm Date: 2 Loc: Room: [address] [place] [address] Type: ADM INOo Attending Dr: Parvin Batres [...] signed by Parvin Batres MD> 04/17/22 0903 [facility] Work Phone: Progress note Author Parvin Batres [facility] April 18, 2022 9:07am Note Date/Time April 18, 2022 9:0 2am [facility] [address] [place] [address] Hospitalist Progress Note Signed Patient: Corie Courtney MR#: [id number] : 1950 Acct:[id number] Age/Sex: 71 / F Adm Date: 2 Loc: 3T Room: [address] [place] [address] Type: ADM INOo Attending Dr: Parvin Batres [...] 08:39 04/18/22 08:39 04/18/22 08:39 04/18/22 08:39 08/07/22 08:39 Narrative: Patient alert oriented in no [...] signed by Parvin Batres MD> 04/18/22 0907 [facility] Work Phone: Progress note Author Jaquelin Connell [facility] April 18, 2022 12:03pm Note Date/Time April 18, 2022 12: 03pm [facility] [address] [place] [address] Cardiology Progress Note Signed Patient: Corie Courtney MR#: [id number] : 1950 Acct:[id number] Age/Sex: 71 / F Adm Date: 2 Loc: Room: [address] [place] [address] Type: ADM INOo Attending Dr: Parvin Batres [...] % (Auto) 65.1 Lymph % (Auto) 22.3 Real % (Auto) 8.3 Eos % (Auto) 3.3 Baso % (Auto) 1.0 Neut # (Auto) 5.3 Lymph # (Auto) 1.8 Real # (Auto) 0.7 Eos # (Auto) 0.3 [...] Cloudy A Urine pH 7.0 Ur Specific Marshall 1.013 Urine Protein Negative Urine Glucose (UA) [...] signed by MD Jaquelin Connell> 04/18/22 1203 [facility] Work Phone: Summary Purpose Family History No [...] Chief Complaint Essential (primary) hypertension abnormal labs Chief Complaint abnormal labs Additional Source Comments INFORMATION SOURCE (unrecogn ized section and content) DATE CREATED AUTHOR 04/20/2019 [facility] DATE CREATED AUTHOR AUTHOR'S ORGANIZ ATION 03/05/2023 [employer] DATE CREATED AUTHOR AUTHOR'S ORGANIZ ATION 07/09/2023 [facility] DATE CREATED AUTHOR AUTHOR'S ORGANIZ ATION 11/18/2023 [facility] DATE CREATED AUTHOR AUTHOR'S ORGANIZ ATION 02/16/2024 [facility] REASON FOR VISIT (unrecogniz ed section and content) LEFT KNEE PAIN X2 MONTHSRENA L CHRONIC RENAL INSUFFIENCY Care Teams (unrecognized sec tion and content) Team Status: Inactive Member Role Status Dates Delfina Trevino APRN SLUDGE CONTROL OPERATOR-C Primary Care Provide r Active Mark Avila MD Attending Provider Active Team Status: Inactive Member Role Status Dates Delfina Trevino APRN SLUDGE CONTROL OPERATOR-C Primary Care Provide r Active Wilman Ramirez , Emergency Provider Active Josué Alvarez , Admit Provider Active Jennifer Ding RN Other [...] Member Role Status Dates Delfina Trevino APRN SLUDGE CONTROL OPERATOR-C Primary Care Provide r Active Team Status: Inactive Member Role Status Dates Delfina Trevino APRN SLUDGE CONTROL OPERATOR-C Primary Care Provide r Active Layo Sheridan APRN Emergency Provider Active Team Status: Inactive Member Role Status Dates Delfina Trevino APRN SLUDGE CONTROL OPERATOR-C Primar y Care Provider, Attending Provider Active Jerica Carrasco DO Referring Provider Active Team Status: Inactive Member Role Status Dates Delfina Trevino APRN SLUDGE CONTROL OPERATOR-C Primar y Care Provider, Attending Provider Active Team Status: Inactive Member Role Status Dates Delfina Trevino , IFTIKHAR SLUDGE CONTROL OPERATOR-C Attending Provider Active Start: October End: November 02, 2023 Team Status: Active Member Role Status Dates Services [facility] Primary Care Provider Active Team Status: Inactive Member Role Status Dates Services [facility] Primary Care Provider Active Start: November 06, 2023 End: November 06, 2023 Enedelia Gordon APRN Emergency Provider Active Start: November 06, 2023 End: November 06, 2023 Team Status: Inactive Member Role Status Dates Delfina Trevino APRN SLUDGE CONTROL OPERATOR-C Attending Provider A ctive Start: February 01, 2024 End: February 01, 2024 Goals (unrecognized section and content) Goals may [...] BE BASED ON THE PRIMARY CLINICAL RECORDS. [employer] provides no warranty or guarantee of the accuracy or completeness of information in this document.
--- NOTE | 2024-10-24 14:23 | PM.CN ---
Consult Note: HPI Data of Consult Patient: known to practice within the last 3 years Requesting Physician: Roxana Jj NP Primary Care Provider: Non-Staff Physician, Consult Narrative Reason for consult: f/u Narrative: Corie Park a 74 year old female presents for evaluation. chronic right hip and knee pain secondary to OA. pending right hip replacement when bone density approves, supposed to be on prolia however she has not had her injections recently. currently utilizing butrans 10mcg/hr q 7days with increased pain, agitation and restlessness. Pain today 15 /10 increasing with stairs, standing, and activity. pain improved with sitting and non weight bearing. cc:: CC: Roxana Jj NP Review of Systems ROS Musculoskeletal Reports: joint pain Psychiatric Reports: anxiety, mood swings and irritability PFSH PFS Medical History Basal cell carcinoma ?C44.91 - Basal cell carcinoma of skin, unspecified (ICD-10) Anxiety ?F41.9 - Anxiety disorder, unspecified (ICD-10) Kidney disease ?N28.9 - Disorder of kidney and ureter, unspecified (ICD-10) Osteoarthritis ?M19.90 - Unspecified osteoarthritis, unspecified site (ICD-10) Rheumatoid arthritis ?M06.9 - Rheumatoid arthritis, unspecified (ICD-10) CHF (congestive heart failure) ?I50.9 - Heart failure, unspecified (ICD-10) High cholesterol ?E78.00 - Pure hypercholesterolemia, unspecified (ICD-10) COPD (chronic obstructive pulmonary disease) ?J44.9 - Chronic obstructive pulmonary disease, unspecified (ICD-10) Arthritis of right hip ?M16.11 - Unilateral primary osteoarthritis, right hip (ICD-10) Surgical History H/O foot surgery ?Z98.890 - Other specified postprocedural states (ICD-10) History of section, classical ?Z98.891 - History of uterine scar from previous surgery (ICD-10) Meds Home Medications and Allergies Home Medications ?Medication ?Instructions ?Recorded ?Confirmed ?Type acetaminophen 325 mg capsule 1,300 mg PO BID PRN pain 05/24/23 10/17/23 History (Tylenol) albuterol sulfate 90 mcg/actuation 1 inh inhalation Q6H 05/24/23 10/17/23 History aerosol inhaler atorvastatin 20 mg tablet 20 mg PO DAILY 05/24/23 10/17/23 History buspirone 5 mg tablet 5 mg PO BID 05/24/23 10/17/23 History cholecalciferol (vitamin D3) 25 25 mcg PO DAILY 05/24/23 10/17/23 History mcg (1,000 unit) capsule furosemide 20 mg tablet 20 mg PO BID 05/24/23 10/17/23 History lisinopril 2.5 mg tablet 2.5 mg PO DAILY 05/24/23 10/17/23 History metoprolol tartrate 25 mg tablet 25 mg PO BID 05/24/23 10/17/23 History multivitamin 1 tab PO DAILY 05/24/23 10/17/23 History buprenorphine 5 mcg/hour weekly 1 patch transdermal Q7D #4 ea 06/22/23 Rx transdermal patch (Butrans) buprenorphine 5 mcg/hour weekly 1 patch transdermal Q7D #4 ea 11/23/23 Rx transdermal patch (Butrans) buprenorphine 5 mcg/hour weekly 1 patch transdermal Q7D #4 ea 02/22/24 Rx transdermal patch (Butrans) buprenorphine 5 mcg/hour weekly 1 patch transdermal QWEEK #4 ea 03/26/24 Rx transdermal patch (Butrans) buprenorphine 5 mcg/hour weekly 1 patch transdermal Q7D #4 ea 04/26/24 Rx transdermal patch (Butrans) buprenorphine 7.5 mcg/hour weekly 1 patch transdermal Q7D #4 ea 05/07/24 Rx transdermal patch (Butrans) buprenorphine 7.5 mcg/hour weekly 1 patch transdermal Q7D #4 ea 07/02/24 Rx transdermal patch (Butrans) buprenorphine 10 mcg/hour weekly 1 patch transdermal Q7D #4 ea 08/15/24 Rx transdermal patch (Butrans) buprenorphine 10 mcg/hour weekly 1 patch transdermal Q7D #4 ea 09/20/24 Rx transdermal patch (Butrans) buprenorphine 10 mcg/hour weekly 1 patch transdermal QWEEK #4 ea 10/18/24 Rx transdermal patch (Butrans) Allergies Allergy/AdvReac Type Severity Reaction Status Date / Time No Known Drug Allergies Allergy Verified 10/17/23 09:55 Exam Constitutional General appearance: anxious Extremity Right lower extremity: hip joint and knee joint Other: severe pain with internal and external log roll of right hip moderate edema and crepitus to right knee, enlarged proximal diameter. no instability with medial and lateral stress testing. Assessment and Plan Assessment and Plan (1) Osteoarthritis of right hip: Qualifiers: Osteoarthritis type: primary Qualified Code(s): M16.11 - Unilateral primary osteoarthritis, right hip (2) Osteoarthritis of right knee: Qualifiers: Osteoarthritis type: primary Qualified Code(s): M17.11 - Unilateral primary osteoarthritis, right knee (3) Chronic prescription opiate use: (4) Chronic pain syndrome: Plan right knee injection with Dr Rodriguez for right knee OA per pt request, prior injections provided >50% improvement greater than 3 months decrease butrans from 10mcg/hr patch q7days to 7.5mcg/hr patch q 7days, pt has noticed increased pain and anxiety/agitation/restlessness with higher dose previously I had referred and recommend pt establish with counselor for chronic pain syndrome, continues to have depression and anxiety increased by chronic pain. again enforced this today. continue care with PCP for chronic depression pt interested in marijuana if fails butrans f/u with Dr Rodriguez
== END 2024-10-24 13:41 | disposition home or self-care (01) ==
LOC: PM 13:40
PROVIDERS: Visit Provider Nurse Practitioner
DX: M16.11 Unilateral primary osteoarthritis, right hip (principal); M17.11 Unilateral primary osteoarthritis, right knee; Z79.891 Long term (current) use of opiate analgesic; G89.4 Chronic pain syndrome
CPT/HCPCS: G0463

== ENCOUNTER 2025-02-18 13:45 | Outpatient (OUT) | payer MEDICARE, SELFPAY ==
--- OUTSIDE RECORDS SUMMARY | 2024-12-13 07:00 | XMS_ITS ---
Demographics Address [facility] [address] [place] [address] Mobile Preferred Language en Marital Status Unknown Shinto Affiliation Unknown Race White Ethnic Group Not or Lati no Author Organization [facility] Address [address] [place], [place] [id number] Care Team Providers Care Logger Name Role Phone Delfina Trevino Primary Care Provider [phone] REASON FOR VISIT Anxiety Social History Sex Assigned At : Social History Observation Description Sex Assigned At Female Encounters Encounter Location Date Provider Diagnosis Main [address] [place], [place] [id number] 12/13/2024 Delfina Trevino Plan Of Treatment Next Appt Details Provider Name:Delfina mittal, 07/15/2025 12:45:00 PM, [address] [place], [place], [id number], Progress Notes * Corie COURTNEYDOB:1949 (74 yo F)Acc No.[id number]:12/13/2024 Medical Note Patient: Pino GREG Corie Provider: CURTIS Coulter :1950 A ge:74 Y S ex:Female Date:12/13/2024 Address:[address] [facility] Subjective: * Chief Complaints: * 1 . Anxiety. * Medical History: Objective: * Vitals: Assessment: Plan: * Treatment: * Billing Information: * Visit Code: * Procedure Codes: * Electronic signature of CURTIS Hilario on 02/18/2025 at 01:48 PM EDT Sign off status: Pending * Provider: CURTIS Coulter Date: 0 12/13/2024 Generated for Devonte woodall/True/Desiree on: 0 02/18/2025 01:48 PM EDT
--- OUTSIDE RECORDS SUMMARY | 2025-02-18 13:49 | XMS_ITS | Clinical Summary ---
Author Organization [facility] Address [address] [place] [address] Care Team Providers Care Investigator Utility Bill Complaints Name Role Phone Unavailable Primary Care Provider Unavailabl e Allergies Active Allergy Reactions Criticality Noted Date Comments Clindamycin Unknown 03/24/2023 Oxycodone-Acetaminophen GI intolerance 04/01/20 23 Paroxetine GI intolerance 03/24/2023 Pseudoephedrine Unknown 03/24/2023 Sertraline Unknown 03/24/2023 Medications albuterol HFA 90 mcg/act inhaler Inhale 2 puffs every 6 (six) hours if needed. Active atorvastatin (Lipitor) 40 MG tablet TAKE 1 TABLET BY MOUTH EVERY DAY FOR 90 DAYS Active busPIRone (Buspar) 5 MG tablet every 12 (twelve) hours. 03/24/2023 Active diclofenac (Voltaren) 75 MG EC tablet TAKE 1 TABLET BY MOUTH TWICE A DAY NEEDED FOR 90 DAYS Active famotidine (Pepcid) 40 MG tablet TAKE 1 TABLET BY MOUTH EVERY DAY AT BEDTIME FOR 30 DAYS Active furosemide (Lasix) 40 MG tablet Take 1 tablet by mouth in the morning. Active lisinopril 2.5 MG tablet Take 1 tablet by mouth in the morning. Active metoprolol succinate XL (Toprol-XL) 25 MG 24 hr tablet Take 1 tablet by mouth in the morning. Active tiotropium-olod aterol (Stiolto Respimat) 2.5-2.5 MCG/ACT aerosol solution inhaler 1 (one) time each day at the same time. Active Active Problems Problem Noted Date Diagnosed Date Primary osteoarthritis of right knee 04/25/2023 Family History Medical History Relation Name Comments Heart disease Mother Relation Name Status Comments Father Mother Social History Tobacco Use Types Packs/Day Years Used Date Smoking Tobacco: Every Day Cigarettes Smokeless Tobacco: Never Alcohol Use Standard Drinks/Week Comments Never 0 (1 standard drink = 0.6 oz pur e alcohol) Comments Unknown Sex and Gender Information Value Date Recorded Sex Assigned at Not on file Legal Sex Female 7:07 PM EDT Gender Identity Not on file Sexual Orientation Not on file Last Filed Vital Signs Vital Sign Reading Time Taken Comments Blood Pressure 136/73 09/08/2020 12:00 PM EST Pulse - - Temperature 36.2 C (97.1 F) 04/25/2023 11:09 AM EDT Respiratory Rate - - Oxygen Saturation - - Inhaled Oxygen Concentration - - Weight 45.4 kg (100 lb) 04/25/2023 11:09 AM EDT Height 151.1 cm (4' 11.5 ) 04/25/2023 11:09 AM E DT Body Mass Index 19.86 04/25/2023 11:09 AM EDT Plan of Treatment Not on file Insurance [employer] MEDICARE ADVANTAGE
--- OUTSIDE RECORDS SUMMARY | 2025-02-18 13:49 | XMS_ITS | Clinical Summary ---
Author Organization [facility] Address [address] [place] [phone] Phone Care Team Providers Care Bleach Maker Name Role Phone Delfina Trevino PHARMACEUTICAL SERVICE REPRESENTATIVE-ASSISTANT ATHLETIC TRAINER Primary Care P remy Social History Tobacco Use Types Packs/Day Years Used Date Smoking Tobacco: Never Assessed Comments Unknown Sex and Gender Information Value Date Recorded Sex Assigned at Not on file Legal Sex Female 2:53 AM EST Gender Identity Not on file Sexual Orientation Not on file Last Filed Vital Signs Vital Sign Reading Time Taken Comments Blood Pressure 122/68 03/04/2023 8:13 AM EDT Pulse 83 03/04/2023 8:13 AM EDT Temperature - - Respiratory Rate - - Oxygen Saturation - - Inhaled Oxygen Concentration - - Weight 43.5 kg (96 lb) 03/04/2023 8:13 AM EDT Height 152.4 cm (5') 03/04/2023 8:13 AM EDT Body Mass Index 18.75 03/04/2023 8:13 AM EDT Plan of Treatment Health Maintenance Due Date Last Done Comments Bone Density Scan 1952 CT Colonography 1950 Colonoscopy 1950 Colorectal Cancer Screening 1950 Creatinine Level 1950 FIT-DNA (Cologuard) 1950 FIT 1950 Lipid Panel 1950 Potassium Level 1950 Sigmoidoscopy 1950 Yearly Adult Physical 1950 Hepatitis C Screening 1970 DTaP/Tdap/Td Vaccines (1 - Tdap) 1974 Mammogram 1992 Pneumococcal Vaccine (1 of 1 - PCV) 2002 Zoster Vaccines (1 of 2) 2002 RSV High Risk: (Elderly (60+ ) or Population) (1 - Risk 60-74 years 1-dose series) 2012 Echocardiogram 04/17/2023 04/17/2022 COVID-19 Vaccine (1 - 2023-2 5 season) 2024 Influenza Vaccine (Season Ended) 2025 HIB Vaccines Aged Out No longer eligi ble based on patient's age to complete this topic HPV Vaccines Aged Out No longer eligi ble based on patient's age to complete this topic Hepatitis A Vaccines Aged Out No long er eligible based on patient's age to complete this topic Hepatitis B Vaccines Aged Out No long er eligible based on patient's age to complete this topic IPV Vaccines Aged Out No longer eligi ble based on patient's age to complete this topic Meningococcal Vaccine Aged Out No dinroa evon eligible based on patient's age to complete this topic Rotavirus Vaccines Aged Out No longer eligible based on patient's age to complete this topic Procedures Procedure Name Priority Date/Time Associated Diagnosis Comments ECHOCARDIOGRAM 04/17/2022 from Last 3 Months or Most Recently Relevant to Health Maintenance Results * ECHOCARDIOGRAM (04/17/2022) Narrative 04/17/2022 Ordered by an unspecified provider. us Onbase Conversion CV ECHO PROCEDURES Final Resul t from Last 3 Months or Most Recently Relevant to Health Maintenance Care Teams Bleach Maker Relationship Specialty Start Date End Date Delfina Trevino, PHARMACEUTICAL SERVICE REPRESENTATIVE-ASSISTANT ATHLETIC TRAINER [address] [phone] PCP - General 03/04/23
--- OUTSIDE RECORDS SUMMARY | 2025-02-18 13:49 | XMS_ITS | Encounter Summary ---
Demographics Address [address] [place] [address] Home Phone Preferred Language en Marital Status Anabaptist Affiliation Unknown Race White Ethnic Group Not or Lati no Author Organization [facility] Address [address] [place] [address] Phone Care Team Providers Care Sales Correspondent Name Role Phone Delfina Trevino APRN-NAUN Primary Care P rovider Encounter Details Date Type Department Care Team (Late st Contact Info) Description 02/28/2023 Orders Only [facility] [address] [place] [address] Conversion, Onbase Social History Tobacco Use Types Packs/Day Years Used Date Smoking Tobacco: Never Assessed Comments Unknown Sex and Gender Information Value Date Recorded Sex Assigned at Not on file Legal Sex Female 2:53 AM EST Gender Identity Not on file Sexual Orientation Not on file documented as of this encounter Plan of Treatment Scheduled Orders Name Type Priority Associated Diagnoses Orde r Schedule OUTSIDE LAB SCAN Lab Ordered: 02/28/2023 documented as of this encounter Visit Diagnoses Not on filedocumented in this encounter Care Teams Sales Correspondent Relationship Specialty Start Date End Date Delfina Trevino APRN-CNP [address] [facility] [place] [phone] PCP - General 03/04/23 documented as of this encounter
--- OUTSIDE RECORDS SUMMARY | 2025-02-18 13:49 | XMS_ITS | Patient Health Record ---
Demographics Address [address] [place] [address] Mobile Preferred Language en Marital Status unmarried Zoroastrian Affiliation Unknown Race White Ethnic Group Not or Lati no Author Organization [facility] Address [address] [place] [address] Care Team Providers Care Hr Representative Name Role Phone Paty Paez Primary Care Provider [phone] Natanael Hawkins [phone] Allergies Allergen (clinical drug ingredient) Drug/Non Drug Allergy documented on EMR Reaction Allergy Type Onset Date Status clindamycin Clindamycin HCl stomach upset Drug Allergy Active Entex stomach upset Drug Allergy Act amberly paroxetine Paxil diarrhea Drug Allergy Active sertraline Zoloft diarrhea Drug Allergy Active Reason For Referral No Information Medications Medication SIG (Take, Route, Frequency, Duration) Notes Start Date End Date Status Furosemide 40 MG TAKE 1 TABLET BY MOUTH EVERY DAY for 90 Active Atorvastatin Calcium 40 MG TAKE 1 TABLET BY MOUTH EVERY DAY for 90 Active Albuterol Sulfate HFA 108 (90 Base) MCG/ACT 2 puff as needed Inhalation every 6 hrs for 30 days Active Diclofenac Sodium 75 MG TAKE 1 TABLET BY MOUTH TWICE A DAY NEEDED for 90 Active Buprenorphine 5 MCG/HR 1 patch to skin Transdermal *PAIN MANAGEMENT Active Prolia 60 MG/ML 60 mg Subcutaneous every 6 month 04/25/2023 Active Acetaminophen-Codeine 300-15 MG 1 tablet as needed Orally every 6 hrs *PAIN MANAGEMENT Active Lisinopril 2.5 MG TAKE 1 TABLET BY MOUTH EVERY DAY for 30 days Active DULoxetine HCl 30 MG 1 capsule Orally Once a day for 30 day(s) 01/26/2024 Active Metoprolol Succinate ER 25 MG TAKE 1 TABLET BY MOUTH EVERY DAY for 90 Active Famotidine 40 MG TAKE 1 TABLET BY MOUTH EVERY DAY AT BEDTIME for 90 days Active Immunizations Vaccine Route Administration Date Status Comme nts Influenza 3+ PRIVATE IM Intramuscular 08/01/2019 Administe red Influenza 3+ PRIVATE IM Intramuscular 05/14/2020 Administe red Influenza 3+ PRIVATE IM Intramuscular 08/03/2021 Administe red Influenza 3+ PRIVATE IM Intramuscular 07/27/2023 Administe red Pneumococcal 13 IM Intramuscular 06/06/2018 Administered G iven at [facility]. Form on file. PNEUMOVAX 23 Unknown 07/23/2016 Administered zzz IM Intramuscular 06/26/2015 Administered zzz do not use FLUARIX 3 YRS AND OLDER Adult Unknown 07/23/2016 Administered Social History Tobacco Use: Social History Observation Description Date Details (start date - stop date) Current Smoker NA - NA Tobacco Screen: Question Answer Notes Are you a: current smoker How often do you smoke cigarettes? every day How many cigarettes a day do you smoke? 21-30 How soon after you wake up do you smoke your fir st cigarette? within 5 min Are you interested in quitting? Not ready to madiha t Sexual Hx: Question Answer Notes Had sex in the last 12 months (vaginal, oral, or anal)? No Have you ever had an STD? No Alcohol Screening: Question Answer Notes Did you have a drink contain ing alcohol in the past year? Yes How often did you have a dri nk containing alcohol in the past year? Two to four times a month (2 points) How many drinks did you have on a typical day when you were drinking in the past year? 1 or 2 (0 points) Points 2 Interpretation Negative Depression Screening (PHQ-9): Question Answer Notes Little interest or pleasure in doing things Near ly every day Feeling down, depressed, or hopeless More than h keaton the days Trouble falling or staying asleep, or sleeping t oo much Several days Feeling tired or having little energy Several da ys Poor appetite or overeating More than half the d ays Feeling bad about yourself-o r that you are a failure or have let yourself or your family down Several days Trouble concentrating on thi ngs, such as reading the newspaper or watching television Several days Moving or speaking so slowly that other people could have noticed. Or the opposite being so fidgety or restless that you have been moving around a lot more than usual Several days Thoughts that you would be b melody off , or of hurting yourself in some way Not at all Total Score 12 Intepretation Moderate Depression AUDIT-C (Standard) Question Answer Notes Did you have a drink containing alcohol in the p ast year? No Points 0 Interpretation Negative Tobacco Control (Standard) Question Answer Notes Tobacco use: Current smoker How often do you smoke cigarettes? Every day How many cigarettes a day do you smoke? 11-20 How soon after you wake up do you smoke your fir st cigarette? Within 5 minutes Section Notes: smokes 1 ppd smokes 1 ppd smokes 1 ppd smokes 1 ppd smokes 1 ppd smokes 1 ppd smokes 1 ppd 01/06/16: Smokes 2 ppd, drink s once a week 1-6 beers, denies IDU Problems Problem Type SNOMED Code ICD Code Onset Dates Problem Status W/U Status Risk Notes Problem Tobacco user (372337377) Nicotine dependence, unspecified, uncomplicated (F17.200) Active confirmed Problem 71128565 Generalized anxi ety disorder (F41.1) Active confirmed Problem Essential hypertension (56035231) Essential (primary) hypertension (I10) Active confirmed Problem 09841556 Urge incontinenc e (N39.41) Active confirmed Problem Rheumatoid arthritis (50810286) Rheumatoid arthritis (M06.9) Active confirmed Problem COPD - Chronic obstructive pulmonary disease (58782591) COPD (chronic obstructive pulmonary disease) (J44.9) Active confirmed Problem CVA - Cerebrovascular accident (946692784) CVA (cerebral vascular accident) (I63.9) Active confirmed Problem 13236369 Other chronic pa in (G89.29) Active confirmed Problem Acute exacerbation of chronic obstructive airways disease (965669590) COPD exacerbation (J44.1) Active confirmed Problem 834503308 Gastroesophageal reflux disease without esophagitis (K21.9) Active confirmed Problem Hyperlipidaemia (12773076) Hyperlipemia (E78.5) Active confirmed Problem Tobacco dependence (47365988) Tobacco dependence (F17.200) Active confirmed Problem Skin sensation disturbance (38653306) Numbness and tingling in both hands (R20.2) Active confirmed Problem 58820666 Osteoporosis, unspecified osteoporosis type, unspecified pathological fracture presence (M81.0) Active confirmed Problem 61817737 Incontinence in female (R32) Active confirmed Problem 683421523 Osteoarthritis o f multiple joints, unspecified osteoarthritis type (M15.9) Active confirmed Problem 323190192 Chronic diastoli c congestive heart failure (I50.32) Active confirmed Problem 35310502 Varicose veins o f both lower extremities with pain (I83.813) Active confirmed Encounters Encounter Location Date Provider Diagnosis [facility] [address] [address] 05/04/2024 Paty Philippe Essential (primary) hypertension I10 and COPD (chronic obstructive pulmonary disease) J44.9 [facility] [address] [address] 11/30/2024 Paty Philippe Essential (primary) hypertension I10 [facility] [address] [place] [address] 04/18/2024 Natanael Hawkins Osteoporosis, unspecified osteoporosis type, unspecified pathological fracture presence M81.0 Assessments Encounter Date Diagnosis (ICD Code) Assessment Notes Treatment Notes Treatment Clinical Notes Section Notes 04/18/2024 Osteoporosis, unspecified osteoporosis type, unspecified pathological fracture presence (ICD-10 - M81.0) 05/04/2024 Essential (primary) hypertension (ICD-10 - I10) 11/30/2024 Essential (primary) hypertension (ICD-10 - I10) 05/04/2024 COPD (chronic obstructive pulmonary disease) (ICD-10 - J44.9) Plan Of Treatment No Information Insurance Providers Payer Name Payer Address Payer Phone Subscriber Number Group Number Insured Name Patient Relationship to Insured Coverage Start Date Coverage End Date [employer] MEDICARE ADVANTAGE [address] [place] [address] [id number] TASHA GOVEA Self - patient is the insured 2 MEDICARE CGS [address] [place] [address] [id number] TASHA GOVEA Self - patient is the insured 7 Medical (General) History Medical History History ICD Code LEVEL 3 Anxiety Basal Cell Carcinoma COPD Right Side Weakness with CVA Rheumatoid Arthritis Hypertension Tobacco Use Surgical History Surgery Date(Month/Year) 1987 right wrist surgery 07/2016 left foot surgery Hospitalization History Reason Date(Month/Year) CVA, Pneumonia 06/2020 swelling 04/02 Wwrist surgery Childbirth
--- OUTSIDE RECORDS SUMMARY | 2025-02-18 13:49 | XMS_ITS | Patient Health Record ---
Author Organization [facility] vices Address [address], [place] [id number] Care Team Providers Care Auction Clerk Name Role Phone Delfina Trevino Primary Care Provider Danny Parker Unavailable [phone] Allergies Allergen (clinical drug ingredient) Drug/Non Drug Allergy documented on EMR Reaction Allergy Type Onset Date Status acetaminophen / oxycodone Percocet stomach upset Drug Allergy Active Reason For Referral No Information Medications Medication SIG (Take, Route, Frequency, Duration) Notes Start Date End Date Status Prolia 60 MG/ML 1 injection Subcutaneous every 6 months for 180 days every 6 months Active Furosemide 40 MG 1 tablet Orally Once a day As needed Active Cholecalciferol 125 MCG (5000 UT) 1 capsule Orally Once a day Active Buprenorphine 10 MCG/HR 1 patch to skin Transdermal Active Aspirin 81 MG 1 tablet Orally Once a day for 90 days 05/21/2024 Active Diclofenac Sodium 75 MG 1 tablet as need ed Orally Twice a day for 90 days Active Atorvastatin Calcium 40 MG TAKE 1 TABLET BY MOUTH EVERY DAY FOR 90 DAYS for 90 Active Spacer/Aero-Holding Chambers - as directed 08/27/2024 Active Albuterol Sulfate HFA 108 (90 Base) MCG/ACT 1 puff as needed Inhalation every 4 hrs for 30 days Dispense 1 inhaler Active Lisinopril 2.5 MG TAKE 1 TABLET BY MOUTH EVERY DAY FOR 90 DAYS for 90 Active Metoprolol Succinate ER 25 MG 1/2 tablet Orally Once a day for 90 days Active Social History Tobacco Use: Social History Observation Description Date Details (start date - stop date) Current Smoker 09/12[birth year]1965 - NA Sex Assigned At : Social History Observation Description Sex Assigned At Female Tobacco Use/Smoking Question Answer Notes Tobacco use: current smoker patient enter ed data Are you interested in quitting? Thinking about q uitting patient entered data How many cigarettes a day do you smoke? 21-30 patient entered data How soon after you wake up d o you smoke your first cigarette? 6-30 minutes patient entered data How often do you smoke cigarettes? every day patient entered data When did you start smoking? 09/12/1965 p atient entered data CAGE-AID Questionnaire (2018 Edition) Question Answer Notes Have you ever felt that you ought to cut down on your drinking or drug use? No patient entered data Have people annoyed you by c riticizing your drinking or drug use? No patient entered data Have you ever felt bad or gu ilty about your drinking or drug use? No patient entered data Have you ever had a drink or used drugs first thing in the morning to steady your nerves or to get rid of a hangover? No patient entered data CAGE-AID Score 0 Interpretation Negative PRAPARE Question Answer Notes Date Completed/Updated: 01/10/2025 sowmya nt entered data What is your current housing situation? I have housing patient entered data Are you worried about losing your housing? No patient entered data What is the highest level of school that you have finished? High school diploma or GED patient entered data What is your current work situation? Otherwise unemployed but not seeking work (ex. 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 I choose not to answer this question How often do you see or talk to people that you care about and feel close to? (For example: talking to friends on the phone, visiting friends or family, going to christianity or club meetings) More than 5 times a week patient entered data How stressed are you? Stress is when someone feels tense, nervous, anxious, or can't sleep at night because their mind is troubled Somewhat patient entered data In the past year have you sp ent more than 2 nights in a row in a alf, senior care, assisted center, or juvenile correctional facility? No patient entered data Are you a refugee? No patient en tered data What country are you from? [place] randi schofield entered data Do you feel physically and emotionally safe where you currently live? Yes patient entered data In the past year, have you b een afraid of your partner or ex-partner? I have not had a partner in the past year patient entered data PRAPARE Score: 5 Problems Problem Type SNOMED Code ICD Code Onset Dates Problem Status W/U Status Risk Notes Problem 838271421 Mixed hyperlipidemia (E78.2) Active confirmed Problem 10838063 Anxiety (F41.9) Active confirmed Problem Tobacco user (696985152) Cigarette nicotine dependence without complication (F17.210) Active confirmed Problem 49606838 Chronic obstructive pulmonary disease, unspecified COPD type (J44.9) Active confirmed Problem CVA (cerebral infarction) (I63.9) Active confirmed Problem 19047468 Chronic congesti ve heart failure, unspecified heart failure type (I50.9) Active confirmed Problem 68263118 Osteoporosis, unspecified osteoporosis type, unspecified pathological fracture presence (M81.0) Active confirmed Problem 552992530 Rheumatoid arthritis with positive rheumatoid factor, involving unspecified site (M05.9) Active confirmed Vital Signs Heart Rate 95 /min 01/10/2025 Karma Jara 01/10/2025 11:14:43 AM EDT > Temperature 97.9 degrees Fahrenheit 01/10/2025 Karma Camilo 01/10/2025 11:14:43 AM EDT > Respiratory Rate 18 /min 01/10/2025 Santos Jara 01/10/2025 11:14:43 AM EDT > Height-cm 152.4 cm 01/10/2025 Karma Jara 01/10/2025 11:14:43 AM EDT > Oximetry 96 % 01/10/2025 Karma Jara 01/10/2025 11:14:43 AM EDT > Blood pressure diastolic 81 mm Hg 01/10/2025 Karma Oh 01/10/2025 11:14:43 AM EDT > Weight-kg 39.69 kg 01/10/2025 Karma Jara 01/10/2025 11:14:43 AM EDT > Height 60 in 01/10/2025 Karma Jara 01/10/2025 11:14:43 AM EDT > Blood pressure systolic 138 mm Hg 01/10/2025 Zoë dominguez Karma 01/10/2025 11:14:43 AM EDT > Weight 87.5 lbs 01/10/2025 Karma Jara 01/10/2025 11:14:43 AM EDT > BMI 17.09 kg/m2 01/10/2025 Karma Jara 01/10/2025 11:14:43 AM EDT > Encounters Encounter Location Date Provider Diagnosis Main [address] [place], [place] [id number] 05/21/2024 Delfina Trevino Mixed hyperlipidemia E78.2 ; Chronic obstructive pulmonary disease, unspecified COPD type J44.9 ; Chronic congestive heart failure, unspecified heart failure type I50.9 ; Anxiety F41.9 ; Osteoporosis, unspecified osteoporosis type, unspecified pathological fracture presence M81.0 ; Rheumatoid arthritis with positive rheumatoid factor, involving unspecified site M05.9 ; BMI less than 19,adult Z68.1 and Cigarette nicotine dependence without complication F17.210 Main [address] [place], [place] [id number] 08/27/2024 Delfina Trevino Chronic obstructive pulmonary disease, unspecified COPD type J44.9 ; Mixed hyperlipidemia E78.2 ; Chronic congestive heart failure, unspecified heart failure type I50.9 ; Anxiety F41.9 ; Osteoporosis, unspecified osteoporosis type, unspecified pathological fracture presence M81.0 ; Rheumatoid arthritis with positive rheumatoid factor, involving unspecified site M05.9 and BMI less than 19,adult Z68.1 Main [address] [place], [place] [id number] 01/10/2025 Delfina Trevino Chronic obstructive pulmonary disease, unspecified COPD type J44.9 ; Mixed hyperlipidemia E78.2 ; Chronic congestive heart failure, unspecified heart failure type I50.9 ; Anxiety F41.9 ; Osteoporosis, unspecified osteoporosis type, unspecified pathological fracture presence M81.0 ; Rheumatoid arthritis with positive rheumatoid factor, involving unspecified site M05.9 ; Cigarette nicotine dependence without complication F17.210 and BMI less than 19,adult Z68.1 [address] [place], [place] [id number] 06/06/2024 Delfina Singhbruce [address] [place] [id number] 06/11/2024 Delfina Belinda [address] [place] [id number] 07/24/2024 Delfinadaniel Trevino [address] [place] [id number] 07/27/2024 Delfina Trevino Assessments Encounter Date Diagnosis (ICD Code) Assessment Notes Treatment Notes Treatment Clinical Notes Section Notes 05/21/2024 Mixed hyperlipidemia (ICD-10 - E78.2) Pt is stable on current medications. Will continue current medications. F/u 3 months & PRN 05/21/2024 Chronic obstructive pulmonary disease, unspecified COPD type (ICD-10 - J44.9) COPD stable. Will continue current medications. F/u 3 months & PRN 08/27/2024 Chronic obstructive pulmonary disease, unspecified COPD type (ICD-10 - J44.9) COPD stable. Will continue current medications. F/u 3 months & PRN 01/10/2025 Chronic obstructive pulmonary disease, unspecified COPD type (ICD-10 - J44.9) COPD stable. Will continue current medications. F/u 6 months & PRN 01/10/2025 Mixed hyperlipidemia (ICD-10 - E78.2) Pt is stable on current medications. Will continue current medications. Will order routine blood work. F/u 6 months & PRN 05/21/2024 Chronic congestive heart failure, unspecified heart failure type (ICD-10 - I50.9) Pt is stable on current medications. Will continue current medications. F/u 3 months & PRN 08/27/2024 Mixed hyperlipidemia (ICD-10 - E78.2) Pt is stable on current medications. Will continue current medications. F/u 3 months & PRN 05/21/2024 Anxiety (ICD-10 - F41.9) Anxiety stable. Will continue current medications. Advised pt if they are have suicidal or homicidal to call 911 or go to the ER. F/u 3 months & PRN 08/27/2024 Chronic congestive heart failure, unspecified heart failure type (ICD-10 - I50.9) Pt is stable on current medications. Will continue current medications. F/u 3 months & PRN 01/10/2025 Chronic congestive heart failure, unspecified heart failure type (ICD-10 - I50.9) Pt is stable on current medications. Will continue current medications. F/u 6 months & PRN 01/10/2025 Anxiety (ICD-10 - F41.9) Stable without medication. Advised pt if they are have suicidal or homicidal to call 911 or go to the ER. F/u 6 months & PRN 08/27/2024 Anxiety (ICD-10 - F41.9) Will stop bupsar. Will start Effexor to help with symptoms. Advised pt if they are have suicidal or homicidal to call 911 or go to the ER. F/u 3 months & PRN 05/21/2024 Osteoporosis, unspecified osteoporosis type, unspecified pathological fracture presence (ICD-10 - M81.0) Pt is stable on current medications. Will continue current medications. F/u 3 months & PRN 05/21/2024 Rheumatoid arthritis with positive rheumatoid factor, involving unspecified site (ICD-10 - M05.9) Pt to continue to f/u with Pain Management 08/27/2024 Osteoporosis, unspecified osteoporosis type, unspecified pathological fracture presence (ICD-10 - M81.0) Pt is stable on current medications. Will continue current medications. F/u 3 months & PRN 01/10/2025 Osteoporosis, unspecified osteoporosis type, unspecified pathological fracture presence (ICD-10 - M81.0) Pt is stable on current medications. Will continue current medications. F/u 6 months & PRN 01/10/2025 Rheumatoid arthritis with positive rheumatoid factor, involving unspecified site (ICD-10 - M05.9) Pt to continue to f/u with Pain Management 08/27/2024 Rheumatoid arthritis with positive rheumatoid factor, involving unspecified site (ICD-10 - M05.9) Pt to continue to f/u with Pain Management 05/21/2024 BMI less than 19,adult (ICD-10 - Z68.1) Body Mass Index: Care Instructions material was printed 05/21/2024 Cigarette nicotine dependence without complication (ICD-10 - F17.210) Quitting Tobacco: Care Instructions material was printed 08/27/2024 BMI less than 19,adult (ICD-10 - Z68.1) Body Mass Index: Care Instructions material was printed 01/10/2025 Cigarette nicotine dependence without complication (ICD-10 - F17.210) Patient provided with [phone] phone line. 01/10/2025 BMI less than 19,adult (ICD-10 - Z68.1) Body Mass Index: Care Instructions material was printed Plan Of Treatment Pending Test Test Name Order Date THYROID PROFILE III 01/10/2025 LIPID PANEL WITH REFLEX TO DIRECT LDL COMPREHENSIVE METABOLIC PANEL WITH GFR 0 01/10/2025 Next Appt Details Provider Name:Delfina mittal, 07/15/2025 12:45:00 PM, [address] [place], [place], [id number], Insurance Providers Payer Name Payer Address Payer Phone Subscriber Number Group Number Insured Name Patient Relationship to Insured Coverage Start Date Coverage End Date [employer] [address] [address] [place] [phone] [id number] H Valerie combs Corie Self - patient is the insured 2 Medical (General) History Medical History History ICD Code Mixed hyperlipidemia E78.2 Chronic congestive heart failure, unspec ified heart failure type I50.9 Anxiety F41.9 Osteoporosis, unspecified os teoporosis type, unspecified pathological fracture presence M81.0 Rheumatoid arthritis with po sitive rheumatoid factor, involving unspecified site M05.9 Chronic obstructive pulmonary disease, u nspecified COPD type J44.9 CVA (cerebral infarction) I63.9 Surgical History Surgery Date(Month/Year) basocell removal by nose 1969 plate and screw in wrist 2013 plate and screw in foot 2018 C section 1987 Hospitalization History Reason Date(Month/Year) heart enzymes 2022 stroke 2019
--- NOTE | 2025-02-18 15:25 | PM.CN ---
Consult Note: HPI Data of Consult Patient: known to practice within the last 3 years Consult date: 02/18/25 Requesting Physician: Serge Rdoriguez MD Primary Care Provider: Non-Staff Physician, Consult Narrative Reason for consult: right knee, bilateral shoulder pain Narrative: 74yof who presents for assessment. notes persistence of right knee pain, also worsening bilateral shoulder pain. uses butrans patch. cc:: CC: Serge Rodriguez MD Review of Systems ROS Status of ROS 10 or more systems reviewed and unremarkable except as noted in history and below PFSH PFSH Medical History Basal cell carcinoma ?C44.91 - Basal cell carcinoma of skin, unspecified (ICD-10) Anxiety ?F41.9 - Anxiety disorder, unspecified (ICD-10) Kidney disease ?N28.9 - Disorder of kidney and ureter, unspecified (ICD-10) Osteoarthritis ?M19.90 - Unspecified osteoarthritis, unspecified site (ICD-10) Rheumatoid arthritis ?M06.9 - Rheumatoid arthritis, unspecified (ICD-10) CHF (congestive heart failure) ?I50.9 - Heart failure, unspecified (ICD-10) High cholesterol ?E78.00 - Pure hypercholesterolemia, unspecified (ICD-10) COPD (chronic obstructive pulmonary disease) ?J44.9 - Chronic obstructive pulmonary disease, unspecified (ICD-10) Arthritis of right hip ?M16.11 - Unilateral primary osteoarthritis, right hip (ICD-10) Surgical History H/O foot surgery ?Z98.890 - Other specified postprocedural states (ICD-10) History of section, classical ?Z98.891 - History of uterine scar from previous surgery (ICD-10) Meds Home Medications and Allergies Home Medications ?Medication ?Instructions ?Recorded ?Confirmed ?Type acetaminophen 325 mg capsule 1,300 mg PO BID PRN pain 05/24/23 10/17/23 History (Tylenol) albuterol sulfate 90 mcg/actuation 1 inh inhalation Q6H 05/24/23 10/17/23 History aerosol inhaler atorvastatin 20 mg tablet 20 mg PO DAILY 05/24/23 10/17/23 History buspirone 5 mg tablet 5 mg PO BID 05/24/23 10/17/23 History cholecalciferol (vitamin D3) 25 25 mcg PO DAILY 05/24/23 10/17/23 History mcg (1,000 unit) capsule furosemide 20 mg tablet 20 mg PO BID 05/24/23 10/17/23 History lisinopril 2.5 mg tablet 2.5 mg PO DAILY 05/24/23 10/17/23 History metoprolol tartrate 25 mg tablet 25 mg PO BID 05/24/23 10/17/23 History multivitamin 1 tab PO DAILY 05/24/23 10/17/23 History buprenorphine 7.5 mcg/hour weekly 1 patch transdermal QWEEK #4 ea 10/29/24 Rx transdermal patch (Butrans) buprenorphine 7.5 mcg/hour weekly 1 patch transdermal Q7D #4 ea 12/04/24 Rx transdermal patch (Butrans) buprenorphine 7.5 mcg/hour weekly 1 patch transdermal QWEEK #4 ea 01/02/25 Rx transdermal patch (Butrans) buprenorphine 7.5 mcg/hour weekly 1 patch transdermal QWEEK #4 ea 02/07/25 Rx transdermal patch (Butrans) Allergies Allergy/AdvReac Type Severity Reaction Status Date / Time No Known Drug Allergies Allergy Verified 10/17/23 09:55 Exam Narrative Exam Narrative: Psych-alert and oriented x 3.? Attentive and appropriate, constitutionally normal, displays normal mood and affect per situation.? There are no obvious deficits in memory, reasoning, or intellect. Extremities-lower extremities are warm with minimal edema and palpable pulses. Shoulder - tender to palpation in bilateral shoulder. Pain is elicited with abduction, external rotation of bilateral shoulders. Knee-examination of the right knee reveals tenderness to palpation over the superior, inferior, lateral, and medial aspect of the knee.? Some swelling is noted without erythema. Pain is elicited with flexion and extension of the knee both actively and passively.? Some grinding is noted with these motions.? There is no notable ligamental laxity or instability.? Coordination remains intact.? Gait remains antalgic. Assessment and Plan Assessment and Plan (1) Osteoarthritis of right knee: Qualifiers: Osteoarthritis type: primary Qualified Code(s): M17.11 - Unilateral primary osteoarthritis, right knee (2) Bilateral shoulder pain: Qualifiers: Chronicity: chronic Qualified Code(s): M25.511 - Pain in right shoulder; M25.512 - Pain in left shoulder; G89.29 - Other chronic pain Plan 74yof who presents for assessment. failed conservative measures. given right knee pain, will proceed with right knee injection. in terms of bilateral shoulder pain, will order bilateral shoulder xr. she is in agreement. meds reviewed, no changes. follow up after imaging. procedure: right knee pain medications: bupivacaine 0.25% 4cc, depomedrol 40mg I explained the details of the procedure to the patient including the risks, benefits and alternatives. We had an informed discussion and the patient verbalized understanding and signed the consent form. All questions were answered appropriately.? A time out was performed.? After obtaining a comfortable seated position, the right knee was prepped with alcohol x3. A syringe containing the above medication was attached to a 25 gauge, 1.5 inch needle under strict aseptic technique. The lateral tibial plateau was palpated.? The needle was then advanced through the subcutaneous tissue in a medial and superior direction towards the joint space.? The contents of the syringe were gently injected without any resistance. The needle was removed and pressure was applied to the injection site to decrease the incidence of ecchymosis and hematoma formation.? A sterile bandage was applied.
== END 2025-02-18 13:46 | disposition home or self-care (01) ==
LOC: PM 13:45
PROVIDERS: Visit Provider Anesthesiology
DX: M17.11 Unilateral primary osteoarthritis, right knee (principal); M25.511 Pain in right shoulder; M25.512 Pain in left shoulder; G89.29 Other chronic pain
CPT/HCPCS: 20610; J0665; J1010

== ENCOUNTER 2025-05-22 12:32 | Outpatient (OUT) | payer MEDICARE, SELFPAY ==
--- OUTSIDE RECORDS SUMMARY | 2025-05-22 12:37 | XMS_ITS | CCD ---
Author Organization [facility] Inform ion Partnership [facility] Care Team Providers Care Public Health Technician Name Role Phone MISC, DOCTOR Primary Care Unavailable GUME RODRIGUEZ Admitting GUME Padron Attending ROGERS [place] Consulting Unavailable GUME RODRIGUEZ Consulting UnavailEstelita Breen Unavailable IFTIKHAR Trevino Primary Care Provide r DO Wilman Ramirez Emergency Provider [phone] DO Josué Alvarez Admit Provider RONEY Ding [...] Attending Provider MD Mark Avila Attending Provider [phone] Linda Fontanez Unavailable IFTIKHAR Trevino Primary Care Provide r IFTIKHAR Sheridan Emergency Provider [phone] IFTIKHAR Trevino Attending Provider DO Jerica Carrasco Referring Provider [phone] Delfina Trevino Unavailable [phone] Unavailable Unavailable Joy Saab Unavailable Belinda, . Delfina Maliky Primary Care Milly vailable Danilo, Dr. Willie Sepulveda Attending Unava ilable Belinda, Ms. Delfina Thomas Primary Care Milly vailable Ko, Dr. Hammer Referring Unavaila ble Ko, Dr. Hammer Attending Unavaila ble Belinda, IFTIKHAR Mae Attending Provider [facility] Primary Care Provider IFTIKHAR Gordon Emergency Provider [phone] [facility] Primary Care Provider Saffle, IFTIHKAR Encinas Emergency Provider IFTIKHAR Trevino Attending Provider Delfina Trevino Attending Unavailab le Delfina Trevino Admitting Unavailab le Jerica Carrasco Referring Unavailable Delfina Trevino Attending Unavailab le Delfina Trevino Admitting Unavailab le SamanthaerDelfina mittal Primary Care Unavailab le SamanthaerDelfina mittal Admitting Unavailab le SamanthaerDelfina mittal Primary Care Unavailab le Delfina Trevino Attending Unavailab le Delfina Trevino Admitting Unavailab le SamanthaerDelfina mittal Primary Care Unavailab le Delfina Trevino Attending Unavailab le SamanthaerDelfina mittal Admitting Unavailab le [facility] Primary Care Unavaila ble Delfina Trevino Attending Unavailab le Enedelia Gordon Admitting Unavailable Enedelia Gordon Attending Unavailable [facility] Primary Care Unavaila genaro Rodriguez MD, Serge Duran Attending Unavailable Jennifer PATEL, Serge Duran Attending Unavailable Allergies Allergy Classification Reported Allergen(s) Sabino rgy Type Date of Onset Reaction(s) Facility Acetaminophen (1 source) Acetaminophen Drug Allergy [facility] guaiFENesin (1 source) guaiFENesin Drug All[facility] Lincosamides (antibiotic) (1 source) Clindamycin Drug Allergy [facility] Opioid Agonists (1 source) oxyCODONE Drug Allergy [facility] Phenylephrine (1 source) Phenylephrine Drug All[facility] Phenylpropanolamine (1 source) Phenylpropanolamine Drug Allergy [facility] Serotonin Reuptake Inhibitors (SSRIs) (2 sources) PARoxetine; Translations: [sertraline] Drug Allergy [facility] (2 sources) Acetaminophen / oxyCODONE Drug Allergy Unknown [facility] Other (2 sources) Clindamycin Drug Allergy Unknown [facility] Other (2 sources) PARoxetine Drug Allergy Unknown [facility] Other (2 sources) Pseudoephedrine Drug Allergy Unknown [facility] Other (2 sources) Sertraline Drug Allergy Unknown [facility] Other Medications Current Medications Medication Drug Class(es) [...] tablet by mariano th every twenty-four hours Fozwwvhs-Qhixs-Pkv 2-C-D3-Jane (Wbmvlkab-Btuigh-Pwd With Vit D) 750-30-1,000-1 rg-fa-wmui-mg Tablet (9 sources) Start: 04-16-2022 take 1 tablet by mouth once daily Aqasepwa-Nodza-Kgb 2-C-D3-Jane (Gewohvgp-Mkgfht-Hoq With Vit D) 750-30-1,000-1 uz-gc-sfmq-mg Tablet Active 1 TAB PO Daily April 15, 2022 11:00pm Start: 04-16-2022 take 1 tablet by mariano th once daily Vhidpgnn-Xccqe-Aox 2-C-D3-Jane (Dgcmklkw-Iriocp-Xtr With Vit D) 750-30-1,000-1 om-zh-jcqk-mg Tablet Active 1 TAB PO Daily April [...] daily Lisinopril Active 2.5 MG PO Daily 30 April 18, 2022 12:00am Start: 04-18-2022 take 2.5 mg by mouth once amy y Lisinopril Active 2.5 MG PO Daily 30 April 18, 2022 12:00am Start: 06-19-2019 End: 04-18-2022 take 10 mg by mouth once daily Lisinopril Discontinued 10 MG PO Daily June 19, 2019 12:00am April 18, 2022 9:47am take 1 tablet by mariano th every twenty-four hours Lisinopril Activ e methylPREDNISolone [...] 12:00am take 1 tablet by mariano th once daily Metoprolol Succinate ER 25 MG [...] by mouth every six hours Hydrocodone-Acetam inophen (Mchenry) 5-325 mg tablet Discontinued 1 TAB PO [...] left hand, initial encounter; Translations: [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 Performed By: #### B MP #### [facility] [address] [place] [address] [place] Carbon dioxide, total [Moles /volume] in Serum or PlasmaOrdered By: Delfina Trevino on 02-01-2024 CO2 [Moles/Vol] 27.4 mmol/L Normal 21.0-31.0 [facility] Comment on above: Performed By: #### B MP #### [facility] [address] [place] [address] [place] Chloride [Moles/volume] in S stefan or PlasmaOrdered By: Delfina Trevino on 02-01-2024 Chloride [Moles/Vol] 103 mmol/L Normal 98-107 [facility] Comment on above: Performed By: #### B MP #### [address] Creatinine [Mass/volume] in Serum or PlasmaOrdered By: Delfina Trevino on 02-01-2024 Creatinine [Mass/Vol] 0.93 mg/dL Normal 0.60-1.20 [facility] Comment on above: Performed By: #### B MP #### [facility] [address] [place] [address] [place] Glucose [Mass/volume] in Ser um or PlasmaOrdered By: Delfina Trevino on 02-01-2024 Glucose [Mass/Vol] 86 mg/dL Normal 70-100 [facility] Comment on above: ADA recommended refe rence rangeRandom Glucose Reference Range is dependent on time and content of last meal. Glucose of more than 200 mg/dL in a nonstressed, ambulatory subject supports the diagnosis of Diabetes Mellitus. Result Comment: [place] om Glucose Reference Range is dependent on time and content of last meal. Glucose of more than 200 mg/dL in a nonstressed, ambulatory subject supports the diagnosis of Diabetes Mellitus. ADA recommended reference range Performed By: #### B MP #### [address] No Panel InformationOrdered By: Delfina Trevino on 02-01-2024 Estimated GFR (CKD-EPI) > 60.0 mL/Min [facility] Creatinine Clearance (Chem N/A [facility] Potassium [Moles/volume] in Serum or PlasmaOrdered By: Delfina Trevino on 02-01-2024 Potassium [Moles/Vol] 4.7 mmol/L Normal 3.5-5.1 [facility] Comment on above: Performed By: #### B MP #### [address] Serum or plasma anion gap de terminationOrdered By: Delfina Trevino on 02-01-2024 Anion gap [Moles/Vol] 11.3 mmol/L Normal 6.0-15.0 [facility] Comment on above: Performed By: #### B MP #### [address] Sodium [Moles/volume] in Ser um or PlasmaOrdered By: Delfina Trevino on 02-01-2024 Sodium [Moles/Vol] 137 mmol/L Normal 136-145 [facility] Comment on above: Performed By: #### B MP #### [address] Urea nitrogen [Mass/volume] in Serum or PlasmaOrdered By: Delfina Trevino on 02-01-2024 Urea nitrogen [Mass/Vol] 16 mg/dL Normal 7-25 [facility] Comment on above: Performed By: #### B MP #### [address] Automated basophil %Ordered By: Enedelia Gordon on 11-06-2023 Basophils/100 WBC (Bld) 0.7 % Normal . [facility] Comment on above: Performed By: #### V [id number], CBC, CMP #### [address] Automated basophil countOrde red By: Enedelia Gordon on 11-06-2023 Basophils (Bld) [#/Vol] 0.1 10*3/uL Normal 0.0-0.2 [facility] Comment on above: Result Comment: PERF ORMED BY: [place] [address] PATHOLOGIST [employer] JOSEY BOUCHER M.D. Performed By: #### V [id number], CBC, CMP #### [address] Automated blood monocyte cou ntOrdered By: Enedelia Gordon on 11-06-2023 Monocytes (Bld) [#/Vol] 0.6 10*3/uL Normal 0.0-0.8 [facility] Comment on above: Performed By: #### V [id number], CBC, CMP #### [address] Automated eosinophil %Ordere d By: Enedelia Pollarde on 11-06-2023 Eosinophils/100 WBC (Bld) 3.3 % Normal . [facility] Comment on above: Performed By: #### V [id number], CBC, CMP #### [address] Automated eosinophil countOr dered By: Enedelia Gordon on 11-06-2023 Eosinophils (Bld) [#/Vol] 0.3 10*3/uL Normal 0.0-0.45 [facility] Comment on above: Performed By: #### V [id number], CBC, CMP #### [address] Automated monocyte %Ordered By: Enedelia Gordon on 11-06-2023 Monocytes/100 WBC (Bld) 5.9 % Normal . [facility] Comment on above: Performed By: #### V [id number], CBC, CMP #### [address] Automated neutrophil %Ordere d By: Enedelia Saffle on 11-06-2023 Neutrophils/100 WBC (Bld) 63.8 % Normal . [facility] Comment on above: Performed By: #### V [id number], CBC, CMP #### [address] Basic Metabolic Panelon 10-14 GFR/1.73 sq M.predicted MDRD (S/P/Bld) [Vol rate/Area] 56.163 mL/min/{1.73_m2} Normal [facility] Comment on above: Performed By: #### V [id number], CBC, CMP #### [address] Calcium [Mass/volume] in Ser um or PlasmaOrdered By: Enedelia Gordon on 11-06-2023 Calcium [Mass/Vol] 8.8 mg/dL Normal 8.6-10.3 [facility] Comment on above: Result Comment: PERF ORMED BY: [place] [address] PATHOLOGIST [employer] JOSEY BOUCHER M.D. Performed By: #### V [id number], CBC, CMP #### [address] Carbon dioxide, total [Moles /volume] in Serum or PlasmaOrdered By: Enedelia Gordon on 11-06-2023 CO2 [Moles/Vol] 20.0 mmol/L Low 21.0-31.0 [facility] Comment on above: Performed By: #### V [id number], CBC, CMP #### [address] Chloride [Moles/volume] in S stefan or PlasmaOrdered By: Enedelia Gordon on 11-06-2023 Chloride [Moles/Vol] 97 mmol/L Low 98-107 [facility] Comment on above: Performed By: #### V [id number], CBC, CMP #### [address] Complete Blood Count Auto Di ffon 11-06-2023 Mean Corpuscular HGB Conc 34.2 g/dL Normal 32.0-35.0 [facility] Comment on above: Performed By: #### V [id number], CBC, CMP #### [address] [place] [address] [place] Monocytes/100 WBC (Bld) 18.33 % Normal 0.00-20.00 T daniel [facility] Comment on above: Performed By: #### V [id number], CBC, CMP #### [facility] [address] NRBC% 0.0 /100{WBC} Normal 0-0.5 [facility] Comment on above: Performed By: #### V [id number], CBC, CMP #### [address] Creatinine [Mass/volume] in Serum or PlasmaOrdered By: Enedelia Gordon on 11-06-2023 Creatinine [Mass/Vol] 1.06 mg/dL Normal 0.60-1.20 [facility] Comment on above: Performed By: #### V [id number], CBC, CMP #### [address] ECG 12 lead ECGon 11-06-2023 ECG 12 lead ECG [facility] [place] [address] [place] [address] Electrocardiograph Report Signed Patient: Corie Courtney MR#: [id number] : 1950 Acct:[id number] Age/Sex: 73 / F ADM Date: 11/06/23 Loc: ER Room: Type: [facility] ER Attending Dr: Ordering Provider: Enedelia Gordon [...] was found Confirmed by MARCO ANTONIO PATEL FAC, WILBERT ([id number]) on 11/08/2023 3:41:23 PM Referred By: Electronically Signed By:WILBERT EAST MD [facility] Transcribed By: MUS Signed By Wilbert East MD, [facility] 11/08/23 1541 Normal [facility] Erythrocyte distribution wid th [Ratio] by Automated countOrdered By: Enedelia Gordon on 11-06-2023 Erythrocyte distribution width (RBC) [Ratio] 14.0 % Normal 11.9-15.3 [facility] Comment on above: Performed By: #### V [id number], CBC, CMP #### [facility] [address] Erythrocytes [#/volume] in B lood by Automated countOrdered By: Enedelia Gordon on 11-06-2023 RBC (Bld) [#/Vol] 3.81 10*6/uL Normal 3.60-5.00 [facility] Comment on above: Performed By: #### V [id number], CBC, CMP #### [facility] [address] [place] [address] [place] Glucose [Mass/volume] in Ser um or PlasmaOrdered By: Enedelia Gordon on 11-06-2023 Glucose [Mass/Vol] 82 mg/dL Normal 70-100 [facility] Comment on above: ADA recommended refe rence rangeRandom Glucose Reference Range is dependent on time and content of last meal. Glucose of more than 200 mg/dL in a nonstressed, ambulatory subject supports the diagnosis of Diabetes Mellitus. Result Comment: [place] om Glucose Reference Range is dependent on time and content of last meal. Glucose of more than 200 mg/dL in a nonstressed, ambulatory subject supports the diagnosis of Diabetes Mellitus. ADA recommended reference range Performed By: #### V [id number], CBC, CMP #### [facility] [address] [place] [address] [place] Hematocrit [Volume Fraction] of Blood by Automated countOrdered By: Enedelia Gordon on 11-06-2023 Hematocrit (Bld) [Volume fraction] 34.4 % Normal 34.0-46.4 [facility] Comment on above: Performed By: #### V [id number], CBC, CMP #### [facility] [address] Hemoglobin [Mass/volume] in BloodOrdered By: Enedelia Gordon on 11-06-2023 Hemoglobin (Bld) [Mass/Vol] 11.8 g/dL Normal 11.8-15.4 [facility] Comment on above: Performed By: #### V [id number], CBC, CMP #### [facility] [address] Leukocytes [#/volume] correc candelario for nucleated erythrocytes in Blood by Automated counOrdered By: Enedelia Gordon on 11-06-2023 WBC corrected for nucl RBC Auto (Bld) [#/Vol] 10.0 10*3/uL 3.8-11.6 [facility] Leukocytes [#/volume] in Blo od by Automated countOrdered By: Enedelia Gordon on 11-06-2023 WBC (Bld) [#/Vol] 10.0 10*3/uL Normal 3.8-11.6 [facility] Comment on above: Performed By: #### V [id number], CBC, CMP #### [facility] [address] [place] [address] Lymphocytes [#/volume] in Bl ood by Automated countOrdered By: Enedelia Gordon on 11-06-2023 Lymphocytes (Bld) [#/Vol] 2.6 10*3/uL Normal 1.00-4.8 [facility] Comment on above: Performed By: #### V [id number], CBC, CMP #### [facility] [address] [place] [address] [place] Lymphocytes/100 leukocytes i n Blood by Automated countOrdered By: Enedelia Gordon on 11-06-2023 Lymphocytes/100 WBC (Bld) 26.3 % Normal . [facility] Comment on above: Performed By: #### V [id number], CBC, CMP #### [facility] [address] [place] [address] [place] MCH [Entitic mass] by Automa candelario countOrdered By: Enedelia Gordon on 11-06-2023 MCH (RBC) [Entitic mass] 30.9 pg Normal 24.7-34.3 [facility] Comment on above: Performed By: #### V [id number], CBC, CMP #### [address] MCHC Auto (RBC) [Mass/Vol]Or dered By: Enedelia Gordon on 11-06-2023 MCHC (RBC) [Mass/Vol] 34.2 g/dL 32.0-35.0 [facility] MCV [Entitic volume] by Auto mated countOrdered By: Enedelia Gordon on 11-06-2023 MCV (RBC) [Entitic vol] 90.3 fL Normal 80-100 [facility] Comment on above: Performed By: #### V [id number], CBC, CMP #### [address] Magnesium [Mass/volume] in S stefan or PlasmaOrdered By: Enedelia Gordon on 11-06-2023 Magnesium [Mass/Vol] 1.9 mg/dL Normal 1.9-2.7 [facility] Comment on above: Result Comment: PERF ORMED BY: [place] [address] PATHOLOGIST [employer] JOSEY BOUCHER M.D. Performed By: #### V [id number], CBC, CMP #### [address] Monocyte distribution width [Entitic volume] in Blood by AutomatedOrdered By: Enedelia Gordon on 11-06-2023 Monocyte distribution width Auto (Bld) [Entitic vol] 18.33 % 0.00-20.00 [facility] Neutrophils [#/volume] in Bl ood by Automated countOrdered By: Enedelia Gordon on 11-06-2023 Neutrophils (Bld) [#/Vol] 6.4 10*3/uL Normal 1.8-7.7 [facility] Comment on above: Performed By: #### V [id number], CBC, CMP #### [facility] [address] [place] [address] No Panel InformationOrdered By: Enedelia Gordon on 11-06-2023 Estimated GFR (CKD-EPI) 56.163 mL/Min [facility] Creatinine Clearance (Chem N/A [facility] Nucleated erythrocytes [Pres ence] in Blood by Automated countOrdered By: Enedelia Gordon on 11-06-2023 Nucleated RBC Auto Ql (Bld) 0.0 /100{WBC} 0-0.5 [facility] Platelet mean volume [Entiti c volume] in Blood by Automated countOrdered By: Enedelia Gordon on 11-06-2023 Platelet mean volume (Bld) [Entitic vol] 6.5 fL Normal 6.3-10.7 [facility] Comment on above: Performed By: #### V [id number], CBC, CMP #### [facility] [address] Platelets [#/volume] in Bloo d by Automated countOrdered By: Enedelia Gordon on 11-06-2023 Platelets (Bld) [#/Vol] 354 10*3/uL Normal 150-450 [facility] Comment on above: Performed By: #### V [id number], CBC, CMP #### [facility] [address] [place] [address] [place] Potassium [Moles/volume] in Serum or PlasmaOrdered By: Enedelia Gordon on 11-06-2023 Potassium [Moles/Vol] 4.6 mmol/L Normal 3.5-5.1 [facility] Comment on above: Performed By: #### V [id number], CBC, CMP #### [facility] [address] Serum or plasma anion gap de terminationOrdered By: Enedelia Gordon on 11-06-2023 Anion gap [Moles/Vol] 13.6 mmol/L Normal 6.0-15.0 [facility] Comment on above: Performed By: #### V [id number], CBC, CMP #### [facility] [address] [place] [address] [place] Sodium [Moles/volume] in Ser um or PlasmaOrdered By: Enedelia Gordon on 11-06-2023 Sodium [Moles/Vol] 126 mmol/L Low 136-145 [facility] Comment on above: Performed By: #### V [id number], CBC, CMP #### [facility] [address] [place] [address] [place] Troponin I High Sensitivityo n 11-06-2023 Troponin I High Sensitivity 5.6 pg/mL Normal 0.0-15.0 [facility] Comment on above: Result Comment: PERF ORMED BY: [place] [address] PATHOLOGIST [employer] JOSEY BOUCHER M.D. Performed By: #### V [id number], CBC, CMP #### [address] Troponin I.cardiac [Mass/vol ume] in Serum or Plasma by Detection limit <= 0.01 ng/Ordered By: Enedelia Gordon on 11-06-2023 Troponin I.cardiac DL <= 0.01 ng/mL [Mass/Vol] 5.6 pg/mL 0.0-15.0 [facility] Urea nitrogen [Mass/volume] in Serum or PlasmaOrdered By: Enedelia Gordon on 11-06-2023 Urea nitrogen [Mass/Vol] 22 mg/dL Normal 04-05 [facility] Comment on above: Performed By: #### V [id number], CBC, CMP #### [facility] [address] [place] [address] [place] Alanine aminotransferase [En zymatic activity/volume] in Serum or PlasmaOrdered By: Delfina Trevino on 11-02-2023 ALT [Catalytic activity/Vol] 19 U/L Normal [facility] Comment on above: Order Comment: Reaso n for Exam Essential (primary) hypertension Performed By: #### L IPID, CMP #### [place] [address] [place] Albumin [Mass/volume] in Ser um or Plasma by Bromocresol green (BCG) dye binding methoOrdered By: Delfina Trevino on 11-02-2023 Albumin BCG dye [Mass/Vol] 4.4 g/dL 3.5-5.7 [facility] Alkaline phosphatase [Enzyma tic activity/volume] in Serum or PlasmaOrdered By: Delfina Trevino on 11-02-2023 ALP [Catalytic activity/Vol] 100 U/L Normal 34-104 [facility] Comment on above: Order Comment: Reaso n for Exam Essential (primary) hypertension Performed By: #### L IPID, CMP #### [facility] [address] [place] [address] [place] Aspartate aminotransferase [ Enzymatic activity/volume] in Serum or PlasmaOrdered By: Delfina Trevino on 11-02-2023 AST [Catalytic activity/Vol] 18 U/L Normal 13-39 [facility] Comment on above: Order Comment: Reaso n for Exam Essential (primary) hypertension Performed By: #### L IPID, CMP #### [facility] [address] [place] [address] [place] Bilirubin.total [Mass/volume ] in Serum or PlasmaOrdered By: Delfina Trevino on 11-02-2023 Bilirubin [Mass/Vol] 0.5 mg/dL Normal 0.3-1.0 [facility] Comment on above: Order Comment: Reaso n for Exam Essential (primary) hypertension Performed By: #### L IPID, CMP #### [facility] [address] [place] [id number] [place] Calcium [Mass/volume] in Ser um or PlasmaOrdered By: Delfina Trevino on 11-02-2023 Calcium [Mass/Vol] 9.3 mg/dL Normal 8.6-10.3 [facility] Comment on above: Order Comment: Reaso n for Exam Essential (primary) hypertension Performed By: #### L IPID, CMP #### [facility] [address] [place] [id number] [place] Carbon dioxide, total [Moles /volume] in Serum or PlasmaOrdered By: Delfina Trevino on 11-02-2023 CO2 [Moles/Vol] 24.1 mmol/L Normal 21.0-31.0 [facility] Comment on above: Order Comment: Reaso n for Exam Essential (primary) hypertension Performed By: #### L IPID, CMP #### [facility] [address] [place] [id number] [place] Chloride [Moles/volume] in S stefan or PlasmaOrdered By: Delfina Trevino on 11-02-2023 Chloride [Moles/Vol] 93 mmol/L Low 98-107 [facility] Comment on above: Order Comment: Reaso n for Exam Essential (primary) hypertension Performed By: #### L IPID, CMP #### [facility] [address] [place] [id number] [place] Cholesterol [Mass/volume] in Serum or PlasmaOrdered By: Delfina Trevino on 11-02-2023 Cholesterol [Mass/Vol] 170 mg/dL Normal 140-200 [facility] Comment on above: Chol less than 200 m g/dl low riskChol 201-239 mg/dl borderline riskChol 240 mg/dl and greater high risk Order Comment: Reaso n for Exam Essential (primary) hypertension Result Comment: Chol less than 200 mg/dl low risk Chol 201-239 mg/dl borderline risk Chol 240 mg/dl and greater high risk Performed By: #### L IPID, CMP #### [facility] [address] [place] [id number] [place] Cholesterol in LDL Calc [Mas s/Vol]Ordered By: Delfina Trevino on 11-02-2023 Cholesterol in LDL [Mass/Vol] 75 mg/dL 0-100 [facility] Comment on above: LDL ATP III CLASSIFI CATIONLDL less than 100 mg/dL OptimalLDL 100-129 mg/dL Near or above optimalLDL 130-159 mg/dL Borderline highLDL 160-189 mg/dL HighLDL greater than 189 mg/dL Very high Cholesterol in VLDL Calc [Ma ss/Vol]Ordered By: Delfina Trevino on 11-02-2023 Cholesterol in VLDL [Mass/Vol] 18 mg/dL [facility] Comprehensive Metabolic Pane dinora 11-02-2023 Albumin [Mass/Vol] 4.4 g/dL Normal 3.5-5.7 [facility] Comment on above: Order Comment: Reaso n for Exam Essential (primary) hypertension Performed By: #### L IPID, CMP #### [facility] [address] [place] [id number] [place] GFR/1.73 sq M.predicted MDRD (S/P/Bld) [Vol rate/Area] 43.963 mL/min/{1.73_m2} Normal [facility] Comment on above: Order Comment: Reaso n for Exam Essential (primary) hypertension Performed By: #### L IPID, CMP #### [facility] [address] Creatinine [Mass/volume] in Serum or PlasmaOrdered By: Delfina Trevino on 11-02-2023 Creatinine [Mass/Vol] 1.30 mg/dL High 0.60-1.20 [facility] Comment on above: Order Comment: Reaso n for Exam Essential (primary) hypertension Performed By: #### L IPID, CMP #### [facility] [address] [place] [address] [place] Glucose [Mass/volume] in Ser um or PlasmaOrdered By: Delfina Trevino on 11-02-2023 Glucose [Mass/Vol] 90 mg/dL Normal 70-100 [facility] Comment on above: ADA recommended refe rence rangeRandom Glucose Reference Range is dependent on time and content of last meal. Glucose of more than 200 mg/dL in a nonstressed, ambulatory subject supports the diagnosis of Diabetes Mellitus. Order Comment: Reaso n for Exam Essential (primary) hypertension Result Comment: [place] om Glucose Reference Range is dependent on time and content of last meal. Glucose of more than 200 mg/dL in a nonstressed, ambulatory subject supports the diagnosis of Diabetes Mellitus. ADA recommended reference range Performed By: #### L IPID, CMP #### [facility] [address] [id number] [facility] Lipid Panelon 11-02-2023 LDL Cholesterol,Calculated 75 mg/dL Normal 0-100 [facility] Comment on above: Order Comment: Reaso n for Exam Essential (primary) hypertension Result Comment: LDL ATP III CLASSIFICATION LDL less than 100 mg/dL Optimal LDL 100-129 mg/dL Near or above optimal LDL 130-159 mg/dL Borderline high LDL 160-189 mg/dL High LDL greater than 189 mg/dL Very high Performed By: #### L IPID, CMP #### [facility] [address] Triglyceride w/Reflex 94 mg/dL Normal 0-149 [facility] Comment on above: [...] Performed By: #### L IPID, CMP #### [facility] [address] VLDL CHOLESTEROL 18 mg/dL Normal [facility] Comment on above: Order Comment: Reaso n for Exam Essential (primary) hypertension Performed By: #### L IPID, CMP #### [facility] [address] No Panel InformationOrdered By: Delfina Trevino on 11-02-2023 Estimated GFR (CKD-EPI) 43.963 mL/Min [facility] Creatinine Clearance (Chem N/A [place] Potassium [Moles/volume] in Serum or PlasmaOrdered By: Delfina Trevino on 11-02-2023 Potassium [Moles/Vol] 5.3 mmol/L High 3.5-5.1 [facility] Comment on above: Order Comment: Reaso n for Exam Essential (primary) hypertension Performed By: #### L IPID, CMP #### [facility] [address] [id number] [facility] Protein [Mass/volume] in Ser um or PlasmaOrdered By: Delfina Trevino on 11-02-2023 Protein [Mass/Vol] 6.7 g/dL Normal 6.4-8.9 [facility] Comment on above: Order Comment: Reaso n for Exam Essential (primary) hypertension Performed By: #### L IPID, CMP #### [facility] [address] Serum globulin measurement b y calculation (mass/volume)Ordered By: Delfina Trevino on 11-02-2023 Globulin (S) [Mass/Vol] 2.3 g/dL Normal [facility] Comment on above: Order Comment: Reaso n for Exam Essential (primary) hypertension Performed By: #### L IPID, CMP #### [facility] [address] Serum or plasma albumin/glob ulin mass ratioOrdered By: Delfina Trevino on 11-02-2023 Albumin/Globulin [Mass ratio] 1.9 {ratio} Normal [place] Comment on above: Order Comment: Reaso n for Exam Essential (primary) hypertension Performed By: #### L IPID, CMP #### [facility] [address] [place] [address] Serum or plasma anion gap de terminationOrdered By: Delfina Trevino on 11-02-2023 Anion gap [Moles/Vol] 11.2 mmol/L Normal 6.0-15.0 [facility] Comment on above: Order Comment: Reaso n for Exam Essential (primary) hypertension Performed By: #### L IPID, CMP #### [facility] [address] Serum or plasma high density lipoprotein (HDL) cholesterol measurementOrdered By: Delfina Trevino on 11-02-2023 Cholesterol in HDL [Mass/Vol] 76 mg/dL Normal 23-92 [place] Comment on above: HDL CHOL ATP-III CLA SSIFICATION Cardiovascular RiskHDL > or equal to 60 mg/dL LOWHDL < 40 mg/dL HIGH Order Comment: Reaso n for Exam Essential (primary) hypertension Result Comment: HDL CHOL ATP-III CLASSIFICATION Cardiovascular Risk HDL > or equal to 60 mg/dL LOW HDL < 40 mg/dL HIGH Performed By: #### L IPID, CMP #### [facility] [address] Serum or plasma total choles terol/high density lipoprotein (HDL) cholesterol mass ratOrdered By: Delfina Trevino on 11-02-2023 Cholesterol.total/Lisa sterol in HDL [Mass ratio] 2.2 {ratio} Normal <5.0 [place] Comment on above: Order Comment: Daysio n for Exam Essential (primary) hypertension Result Comment: PERF ORMED BY: [place] [address] PATHOLOGIST [employer] JOSEY BOUCHER M.D. Performed By: #### L IPID, CMP #### [facility] [address] [place] [address] Sodium [Moles/volume] in Ser um or PlasmaOrdered By: Delfina Trevino on 11-02-2023 Sodium [Moles/Vol] 123 mmol/L Off scale low 136-145 [facility] Comment on above: Critical Result Call ed to and read back by: AGUSTINA FANG at: 11/02/2023 20:51:14 by:[id number] Order Comment: Reaso n for Exam Essential (primary) hypertension Result Comment: Crit ical Result Called to and read back by: AGUSTINA FANG at: 11/02/2023 20:51:14 by:[id number] Performed By: #### L IPID, CMP #### [place] [address] [place] Triglyceride [Mass/volume] i n Serum or PlasmaOrdered By: Delfina Trevino on 11-02-2023 Triglyceride [Mass/Vol] 94 mg/dL 0-149 [facility] Comment on above: TRIG ATP III CLASSIF ICATIONTRIG less than 150 mg/dL NormalTRIG 150-199 mg/dL Borderline highTRIG 200-500 mg/dL High TRIG greater than 500 mg/dL Very highStandard traceable to the Center for Disease Conrtrol and Prevention (CDC) test method. Urea nitrogen [Mass/volume] in Serum or PlasmaOrdered By: Delfina Trevino on 11-02-2023 Urea nitrogen [Mass/Vol] 26 mg/dL High 7-25 [place] Comment on above: Order Comment: Reaso n for Exam Essential (primary) hypertension Performed By: #### L IPID, CMP #### [address] [place] [address] [facility] Office Visit (Cardiology)on 03-04-2023 Follow-up visit Diagnoses/Problems [...] we can help. You may also call [phone] for free resources and assistance.; Status:Complete - [...] of coffee (more content not included)... Normal [facility] Tobacco Screening.on 023 Adult depression screening assessment No MP-Cardiolo gy- [place] 250 DO Work Phone: Fall risk assessment a) No falls within the last year MP-Cardiology- [place] 250 DO Work Phone: Tobacco use status CPHS a) Yes M P-Cardiology- [place] 250 DO Work Phone: Tobacco Screening. Yes MP-Car diology- [place] 250 DO Work Phone: Alanine aminotransferase [En zymatic activity/volume] in Serum or PlasmaOrdered By: Delfina Trevino on 02-28-2023 ALT [Catalytic activity/Vol] 12 U/L Normal 7-52 [place] Comment on above: Order Comment: Reaso n for Exam Chronic diastolic congestive heart failure Reason for Exam Bone pain Performed By: #### V [id number], CBC, CMP #### [facility] [address] Albumin [Mass/volume] in Ser um or Plasma by Bromocresol green (BCG) dye binding methoOrdered By: Delfina Trevino on 02-28-2023 Albumin BCG dye [Mass/Vol] 4.2 g/dL 3.5-5.7 [place] Alkaline phosphatase [Enzyma tic activity/volume] in Serum or PlasmaOrdered By: Delfina Trevino on 02-28-2023 ALP [Catalytic activity/Vol] 142 U/L High 34-104 [place] Comment on above: Order Comment: Reaso n for Exam Chronic diastolic congestive heart failure Reason for Exam Bone pain Performed By: #### V [id number], CBC, CMP #### [facility] [address] Aspartate aminotransferase [ Enzymatic activity/volume] in Serum or PlasmaOrdered By: Delfina Trevino on 02-28-2023 AST [Catalytic activity/Vol] 15 U/L Normal 13-39 [place] Comment on above: Order Comment: Reaso n for Exam Chronic diastolic congestive heart failure Reason for Exam Bone pain Performed By: #### V [id number], CBC, CMP #### [facility] [address] Automated basophil %Ordered By: Delfina Trevino on 02-28-2023 Basophils/100 WBC (Bld) 0.9 % Normal . [facility] Comment on above: Order Comment: Reaso n for Exam Chronic diastolic congestive heart failure Performed By: #### V [id number], CBC, CMP #### [facility] [address] Automated basophil countOrde red By: Delfina Trevino on 02-28-2023 Basophils (Bld) [#/Vol] 0.1 10*3/uL Normal 0.0-0.2 [place] Comment on above: Order Comment: Reaso n for Exam Chronic diastolic congestive heart failure Result Comment: PERF ORMED BY: [place] [address] PATHOLOGIST [employer] JOSEY BOUCHER M.D. Performed By: #### V [id number], CBC, CMP #### [facility] [address] Automated blood monocyte cou ntOrdered By: Delfina Trevino on 02-28-2023 Monocytes (Bld) [#/Vol] 0.7 10*3/uL Normal 0.0-0.8 [place] Comment on above: Order Comment: Reaso n for Exam Chronic diastolic congestive heart failure Performed By: #### V [id number], CBC, CMP #### [facility] [address] Automated eosinophil %Ordere d By: Delfina Trevino on 02-28-2023 Eosinophils/100 WBC (Bld) 5.5 % Normal . [place] Comment on above: Order Comment: Reaso n for Exam Chronic diastolic congestive heart failure Performed By: #### V [id number], CBC, CMP #### [facility] [address] Automated eosinophil countOr dered By: Delfina Trevino on 02-28-2023 Eosinophils (Bld) [#/Vol] 0.6 10*3/uL High 0.0-0.45 [place] Comment on above: Order Comment: Reaso n for Exam Chronic diastolic congestive heart failure Performed By: #### V [id number], CBC, CMP #### [facility] [address] Automated monocyte %Ordered By: Delfina Trevino on 02-28-2023 Monocytes/100 WBC (Bld) 6.8 % Normal . [facility] Comment on above: Order Comment: Reaso n for Exam Chronic diastolic congestive heart failure Performed By: #### V [id number], CBC, CMP #### [facility] [address] Automated neutrophil %Ordere d By: Delfina Trevino on 02-28-2023 Neutrophils/100 WBC (Bld) 65.4 % Normal . [place] Comment on above: Order Comment: Reaso n for Exam Chronic diastolic congestive heart failure Performed By: #### V [id number], CBC, CMP #### [facility] [address] Bilirubin.total [Mass/volume ] in Serum or PlasmaOrdered By: Delfina Trevino on 02-28-2023 Bilirubin [Mass/Vol] 0.4 mg/dL Normal 0.3-1.0 [facility] Comment on above: Order Comment: Reaso n for Exam Chronic diastolic congestive heart failure Reason for Exam Bone pain Performed By: #### V [id number], CBC, CMP #### [facility] [address] [place] [address] [place] Calcium [Mass/volume] in Ser um or PlasmaOrdered By: Delfina Trevino on 02-28-2023 Calcium [Mass/Vol] 10.5 mg/dL High 8.6-10.3 [facility] Comment on above: Order Comment: Reaso n for Exam Chronic diastolic congestive heart failure Reason for Exam Bone pain Performed By: #### V [id number], CBC, CMP #### [facility] [address] Carbon dioxide, total [Moles /volume] in Serum or PlasmaOrdered By: Delfina Trevino on 02-28-2023 CO2 [Moles/Vol] 23.8 mmol/L Normal 21.0-31.0 [facility] Comment on above: Order Comment: Reaso n for Exam Chronic diastolic congestive heart failure Reason for Exam Bone pain Performed By: #### V [id number], CBC, CMP #### [facility] [address] Chloride [Moles/volume] in S stefan or PlasmaOrdered By: Delfina Trevino on 02-28-2023 Chloride [Moles/Vol] 98 mmol/L Normal 98-107 [facility] Comment on above: Order Comment: Reaso n for Exam Chronic diastolic congestive heart failure Reason for Exam Bone pain Performed By: #### V [id number], CBC, CMP #### [facility] [address] Complete Blood Count Auto Di ffon 02-28-2023 Mean Corpuscular HGB Conc 34.1 g/dL Normal 32.0-35.0 [facility] Comment on above: Order Comment: Reaso n for Exam Chronic diastolic congestive heart failure Performed By: #### V [id number], CBC, CMP #### [facility] [address] NRBC% 0.1 /100{WBC} Normal 0-0.5 [facility] Comment on above: Order Comment: Reaso n for Exam Chronic diastolic congestive heart failure Performed By: #### V [id number], CBC, CMP #### [facility] [address] Comprehensive Metabolic Pane dinora 02-28-2023 Albumin [Mass/Vol] 4.2 g/dL Normal 3.5-5.7 [facility] Comment on above: Order Comment: Reaso n for Exam Chronic diastolic congestive heart failure Reason for Exam Bone pain Performed By: #### V [id number], CBC, CMP #### [facility] [address] GFR/1.73 sq M.predicted MDRD (S/P/Bld) [Vol rate/Area] 39.456 mL/min/{1.73_m2} Normal [facility] Comment on above: Order Comment: Reaso n for Exam Chronic diastolic congestive heart failure Reason for Exam Bone pain Performed By: #### V [id number], CBC, CMP #### [facility] [address] Creatinine [Mass/volume] in Serum or PlasmaOrdered By: Delfina Trevino on 02-28-2023 Creatinine [Mass/Vol] 1.43 mg/dL High 0.60-1.20 [facility] Comment on above: Order Comment: Reaso n for Exam Chronic diastolic congestive heart failure Reason for Exam Bone pain Performed By: #### V [id number], CBC, CMP #### [facility] [address] Erythrocyte distribution wid th [Ratio] by Automated countOrdered By: Delfina Trevino on 02-28-2023 Erythrocyte distribution width (RBC) [Ratio] 18.1 % High 11.9-15.3 [place] Comment on above: Order Comment: Reaso n for Exam Chronic diastolic congestive heart failure Performed By: #### V [id number], CBC, CMP #### [facility] [address] [place] [address] [place] Erythrocytes [#/volume] in B lood by Automated countOrdered By: Delfina Trevino on 02-28-2023 RBC (Bld) [#/Vol] 4.02 10*6/uL Normal 3.60-5.00 [facility] Comment on above: Order Comment: Reaso n for Exam Chronic diastolic congestive heart failure Performed By: #### V [id number], CBC, CMP #### [facility] [address] Glucose [Mass/volume] in Ser um or PlasmaOrdered By: Delfina Trevino on 02-28-2023 Glucose [Mass/Vol] 100 mg/dL Normal 70-100 [facility] Comment on above: ADA recommended refe rence rangeRandom Glucose Reference Range is dependent on time and content of last meal. Glucose of more than 200 mg/dL in a nonstressed, ambulatory subject supports the diagnosis of Diabetes Mellitus. Order Comment: Reaso n for Exam Chronic diastolic congestive heart failure Reason for Exam Bone pain Result Comment: [place] om Glucose Reference Range is dependent on time and content of last meal. Glucose of more than 200 mg/dL in a nonstressed, ambulatory subject supports the diagnosis of Diabetes Mellitus. ADA recommended reference range Performed By: #### V [id number], CBC, CMP #### [facility] [address] Hematocrit [Volume Fraction] of Blood by Automated countOrdered By: Delfina Trevino on 02-28-2023 Hematocrit (Bld) [Volume fraction] 33.6 % Low 34.0-46.4 [place] Comment on above: Order Comment: Reaso n for Exam Chronic diastolic congestive heart failure Performed By: #### V [id number], CBC, CMP #### [facility] [address] Hemoglobin [Mass/volume] in BloodOrdered By: Delfnia Trevino on 02-28-2023 Hemoglobin (Bld) [Mass/Vol] 11.4 g/dL Low 11.8-15.4 [place] Comment on above: Order Comment: Reaso n for Exam Chronic diastolic congestive heart failure Performed By: #### V [id number], CBC, CMP #### [facility] [address] [place] [address] [place] Leukocytes [#/volume] correc candelario for nucleated erythrocytes in Blood by Automated counOrdered By: Delfina Trevino on 02-28-2023 WBC corrected for nucl RBC Auto (Bld) [#/Vol] 10.5 10*3/uL 3.8-11.6 [place] Leukocytes [#/volume] in Blo od by Automated countOrdered By: Delfina Trevino on 02-28-2023 WBC (Bld) [#/Vol] 10.5 10*3/uL Normal 3.8-11.6 [facility] Comment on above: Order Comment: Reaso n for Exam Chronic diastolic congestive heart failure Performed By: #### V [id number], CBC, CMP #### [facility] [address] Lymphocytes [#/volume] in Bl ood by Automated countOrdered By: Delfina Trevino on 02-28-2023 Lymphocytes (Bld) [#/Vol] 2.2 10*3/uL Normal 1.00-4.8 [place] Comment on above: Order Comment: Reaso n for Exam Chronic diastolic congestive heart failure Performed By: #### V [id number], CBC, CMP #### [facility] [address] [place] [address] [place] Lymphocytes/100 leukocytes i n Blood by Automated countOrdered By: Delfina Trevino on 02-28-2023 Lymphocytes/100 WBC (Bld) 21.4 % Normal . [place] Comment on above: Order Comment: Reaso n for Exam Chronic diastolic congestive heart failure Performed By: #### V [id number], CBC, CMP #### [facility] [address] [place] [address] [place] MCH [Entitic mass] by Automa candelario countOrdered By: Delfina Trevino on 02-28-2023 MCH (RBC) [Entitic mass] 28.4 pg Normal 24.7-34.3 [place] Comment on above: Order Comment: Reaso n for Exam Chronic diastolic congestive heart failure Performed By: #### V [id number], CBC, CMP #### [facility] [address] [place] [address] [place] MCHC Auto (RBC) [Mass/Vol]Or dered By: Delfina Trevino on 02-28-2023 MCHC (RBC) [Mass/Vol] 34.1 g/dL 32.0-35.0 [facility] MCV [Entitic volume] by Auto mated countOrdered By: Delfina Trevino on 02-28-2023 MCV (RBC) [Entitic vol] 83.5 fL Normal 80-100 [facility] Comment on above: Order Comment: Reaso n for Exam Chronic diastolic congestive heart failure Performed By: #### V [id number], CBC, CMP #### [facility] [address] NM jony perf SPECT rest stron 02-28-2023 NM jony perf SPECT rest str [facility] [place] [address] [place] [address] Nuclear Medicine Report Signed Patient: Corie Courtney MR#: [id number] : 1950 Acct:[id number] Age/Sex: 72 / F ADM Date: 02/28/23 Loc: MD Room: Type: [facility] Attending Dr: Delfina Trevino APRN, GLASS CLEANER-C Copies to: Delfina Trevino APRN,NAUN Connell MD [...] 1700 Signed By: 03/02/23 1539 Normal [facility] Neutrophils [#/volume] in Bl ood by Automated countOrdered By: Delfina Trevino on 02-28-2023 Neutrophils (Bld) [#/Vol] 6.9 10*3/uL Normal 1.8-7.7 [place] Comment on above: Order Comment: Reaso n for Exam Chronic diastolic congestive heart failure Performed By: #### V [id number], CBC, CMP #### [facility] [address] No Panel InformationOrdered By: Delfina Trevino on 02-28-2023 Estimated GFR (CKD-EPI) 39.456 mL/Min [facility] Creatinine Clearance (Chem N/A [place] Nucleated erythrocytes [Pres ence] in Blood by Automated countOrdered By: Delfina Trevino on 02-28-2023 Nucleated RBC Auto Ql (Bld) 0.1 /100{WBC} 0-0.5 [place] Platelet mean volume [Entiti c volume] in Blood by Automated countOrdered By: Delfina Trevino on 02-28-2023 Platelet mean volume (Bld) [Entitic vol] 7.0 fL Normal 6.3-10.7 [place] Comment on above: Order Comment: Reaso n for Exam Chronic diastolic congestive heart failure Performed By: #### V [id number], CBC, CMP #### [facility] [address] Platelets [#/volume] in Bloo d by Automated countOrdered By: Delfina Trevino on 02-28-2023 Platelets (Bld) [#/Vol] 536 10*3/uL High 150-450 [place] Comment on above: Order Comment: Reaso n for Exam Chronic diastolic congestive heart failure Performed By: #### V [id number], CBC, CMP #### [facility] [address] Potassium [Moles/volume] in Serum or PlasmaOrdered By: Delfina Trevino on 02-28-2023 Potassium [Moles/Vol] 4.0 mmol/L Normal 3.5-5.1 [facility] Comment on above: Order Comment: Reaso n for Exam Chronic diastolic congestive heart failure Reason for Exam Bone pain Performed By: #### V [id number], CBC, CMP #### [facility] [address] [place] [id number] [place] Protein [Mass/volume] in Ser um or PlasmaOrdered By: Delfina Trevino on 02-28-2023 Protein [Mass/Vol] 7.8 g/dL Normal 6.4-8.9 [facility] Comment on above: Order Comment: Reaso n for Exam Chronic diastolic congestive heart failure Reason for Exam Bone pain Performed By: #### V [id number], CBC, CMP #### [facility] [address] [place] [id number] [place] STR cardiac stress/lexiscano n 02-28-2023 STR cardiac stress/lexiscan [facility] [place] [address] [place] [address] Cardiac Stress Test Signed Patient: Corie Courtney MR#: [id number] : 1950 Acct:[id number] Age/Sex: 72 / F ADM Date: 02/28/23 Loc: MD Room: Type: [facility] Attending Dr: CURTIS Olson APRN Copies to: [...] 02/28/23 1041 Signed By: 02/28/[address] [facility] Serum globulin measurement b y calculation (mass/volume)Ordered By: Delfina Trevino on 02-28-2023 Globulin (S) [Mass/Vol] 3.6 g/dL Normal [facility] Comment on above: Order Comment: Reaso n for Exam Chronic diastolic congestive heart failure Reason for Exam Bone pain Performed By: #### V [id number], CBC, CMP #### [facility] [address] Serum or plasma albumin/glob ulin mass ratioOrdered By: Delfina Trevino on 02-28-2023 Albumin/Globulin [Mass ratio] 1.2 {ratio} Normal [place] Comment on above: Order Comment: Reaso n for Exam Chronic diastolic congestive heart failure Reason for Exam Bone pain Performed By: #### V [id number], CBC, CMP #### [facility] [address] Serum or plasma anion gap de terminationOrdered By: Delfina Trevino on 02-28-2023 Anion gap [Moles/Vol] 13.2 mmol/L Normal 6.0-15.0 [facility] Comment on above: Order Comment: Reaso n for Exam Chronic diastolic congestive heart failure Reason for Exam Bone pain Performed By: #### V [id number], CBC, CMP #### [facility] [address] [place] [address] [place] Sodium [Moles/volume] in Ser um or PlasmaOrdered By: Delfina Trevino on 02-28-2023 Sodium [Moles/Vol] 131 mmol/L Low 136-145 [facility] Comment on above: Order Comment: Reaso n for Exam Chronic diastolic congestive heart failure Reason for Exam Bone pain Performed By: #### V [id number], CBC, CMP #### [facility] [address] [place] [id number] [facility] Urea nitrogen [Mass/volume] in Serum or PlasmaOrdered By: Delfina Trevino on 02-28-2023 Urea nitrogen [Mass/Vol] 27 mg/dL High 7-25 [place] Comment on above: Order Comment: Reaso n for Exam Chronic diastolic congestive heart failure Reason for Exam Bone pain Performed By: #### V [id number], CBC, CMP #### [facility] [address] [place] [id number] [facility] Vitamin D 25 Hydroxy Totalon 02-28-2023 Vitamin D 25 Hydroxy Total 60.0 ng/mL Normal 30-100 [facility] Comment on above: [...] practice guideline. JCEM. 2010; 96(7):1911-30. PERFORMED BY: [place] [address] PATHOLOGIST [employer] JOSEY BOUCHER M.D. Performed By: #### V [id number], CBC, CMP #### [facility] [address] [place] [id number] [facility] Vitamin D+Metabolites [Mass/ volume] in Serum or PlasmaOrdered By: Delfina Trevino on 02-28-2023 Vitamin D+Metabolites [Mass/Vol] 60.0 ng/mL 30-100 [place] Comment on above: VITAMIN D STATUS 25( [place])VITAMIN D RANGE (ng/mL) Deficient <20 Insufficient 20 to <30Sufficient 30 to 100Reference: Melissa Green, Hernán BUNDY, et al. Evaluation,treatment, and prevention of vitamin D deficiency; an Endocrine Society clinical practice guideline. JCEM. 2010; 96(7):1911-30. XR chest 2V*on 02-28-2023 XR chest 2V* [facility] [place] [address] [place], [place] [id number] XRay Report Signed Patient: Corie Courtney MR#: [id number] : 1950 Acct:[id number] Age/Sex: 72 / F ADM Date: 02/28/23 Loc: MD Room: Type: [facility] Attending Dr: Delfina Trevino APRN, PATRICE-C Copies to: Delfina Trevino APRN,NAUN Ordering Provider: [...] Jeanna Denton M.D.02/28/2023 9:34 AM Dictation Location: [place] [address] Transcribed By: [facility] 02/28/23 0934 Dictated By: Jeanna Denton MD 02/28/23 0932 Signed By: 02/28/23 0934 Normal [facility] Albumin [Mass/volume] in Ser um or PlasmaOrdered By: Mark Avila on 05-12-2022 Albumin [Mass/Vol] 2.8 g/dL 3.2-5.5 [facility] Automated erythrocytes count in urine sediment (number/area)Ordered By: Mark Avila on 05-12-2022 RBC Auto (Urine sed) [#/Area] 3-4 [HPF] 0-4 [place] Automated leukocytes count i n urine sediment (number/area)Ordered By: Mark Avila on 05-12-2022 WBC Auto (Urine sed) [#/Area] 3-4 [HPF] 0-4 [place] Basophils Auto (Bld) [#/Vol] Ordered By: Mark Avila on 05-12-2022 Basophils (Bld) [#/Vol] 0.1 10*3/uL 0.0-0.2 [place] Basophils/100 WBC Auto (Bld) Ordered By: Mark Avila on 05-12-2022 Basophils/100 WBC (Bld) 1.5 % . [facility] Bilirubin Test strip Ql (U)O rdered By: Mark Avila on 05-12-2022 Bilirubin Ql (U) Negative Negative [facility] Blood hemoglobin measurement (mass/volume)Ordered By: Mark Avila on 05-12-2022 Hemoglobin (Bld) [Mass/Vol] 9.4 g/dL 11.8-15.4 [place] Blood leukocytes automated c ount (number/volume)Ordered By: Mark Avila on 05-12-2022 WBC (Bld) [#/Vol] 9.5 10*3/uL 4.5-11.0 [facility] C reactive protein [Mass/vol ume] in Serum or PlasmaOrdered By: Mark Avila on 05-12-2022 CRP [Mass/Vol] 7.1 mg/dL 0.0-1.0 [place] Color Auto (U)Ordered By: Claudine Avila on 05-12-2022 Color (U) Yellow Yellow [place] Creatinine and Glomerular fi ltration rate.predicted panel (S/P/Bld)Ordered By: Mark Avila on 05-12-2022 Creatinine [Mass/Vol] 1.92 mg/dL 0.44-1.03 [facility] Eosinophils Auto (Bld) [#/Vo l]Ordered By: Mark Avila on 05-12-2022 Eosinophils (Bld) [#/Vol] 1.1 10*3/uL 0.0-0.45 [place] Eosinophils/100 WBC Auto (Bl d)Ordered By: Mark Avila on 05-12-2022 Eosinophils/100 WBC (Bld) 11.9 % . [place] Erythrocyte distribution wid th Auto (RBC) [Ratio]Ordered By: Mark Avila on 05-12-2022 Erythrocyte distribution width (RBC) [Ratio] 17.4 % 11.9-15.3 [place] Erythrocyte sedimentation ra te by Photometric methodOrdered By: Mark Avila on 05-12-2022 ESR Photometric method (Bld) [Velocity] 120 mm/hr 0-29 [place] Estimated glomerular filtrat ion rate (GFR) non- AmericanOrdered By: Mark Avila on 05-12-2022 GFR/1.73 sq M.predicted among non-blacks MDRD (S/P/Bld) [Vol rate/Area] 26 mL/Min [place] Globulin Calc (S) [Mass/Vol] Ordered By: Mark Avila on 05-12-2022 Globulin (S) [Mass/Vol] 3.9 g/dL [facility] Hematocrit Auto (Bld) [Volum e fraction]Ordered By: Mark Avila on 05-12-2022 Hematocrit (Bld) [Volume fraction] 29.1 % 34.0-46.4 [place] Ketones Auto test strip (U) [Mass/Vol]Ordered By: Mark Avila on 05-12-2022 Ketones (U) [Mass/Vol] Trace Negative [facility] - Chemistry and C hemistry - challengeOrdered By: Mark Avila on 05-12-2022 Amylase [Catalytic activity/Vol] 16 U/L 7-64 [place] Laboratory - Hematology and Cell countsOrdered By: Mark Avila on 05-12-2022 Nucleated RBC/100 WBC (Bld) [Ratio] 0.1 % 0-0.5 [place] Laboratory - UrinalysisOrder ed By: Mark Avila on 05-12-2022 Hyaline casts LM Ql (Urine sed) N/A [place] Lymphocytes Auto (Bld) [#/Vo l]Ordered By: Mark Avila on 05-12-2022 Lymphocytes (Bld) [#/Vol] 2.0 10*3/uL 1.00-4.8 [place] Lymphocytes/100 WBC Auto (Bl d)Ordered By: Mark Avila on 05-12-2022 Lymphocytes/100 WBC (Bld) 21.6 % . [place] MCH Auto (RBC) [Entitic mass ]Ordered By: Mark Avila on 05-12-2022 MCH (RBC) [Entitic mass] 24.7 pg 24.7-34.3 [place] MCHC Auto (RBC) [Mass/Vol]Or dered By: Mark Avila on 05-12-2022 MCHC (RBC) [Mass/Vol] 32.1 g/dL 32.0-35.0 [facility] MCV Auto (RBC) [Entitic vol] Ordered By: Mark Avila on 05-12-2022 MCV (RBC) [Entitic vol] 76.9 fL 80-100 [facility] Monocytes Auto (Bld) [#/Vol] Ordered By: Mark Avila on 05-12-2022 Monocytes (Bld) [#/Vol] 0.8 10*3/uL 0.0-0.8 [place] Monocytes/100 WBC Auto (Bld) Ordered By: Mark Avila on 05-12-2022 Monocytes/100 WBC (Bld) 8.6 % . [facility] Neutrophils Auto (Bld) [#/Vo l]Ordered By: Mark Avila on 05-12-2022 Neutrophils (Bld) [#/Vol] 5.3 10*3/uL 1.8-7.7 [place] Neutrophils/100 WBC Auto (Bl d)Ordered By: Mark Avila on 05-12-2022 Neutrophils/100 WBC (Bld) 56.4 % . [place] Nitrite Test strip Ql (U)Ord ered By: Mark Avila on 05-12-2022 Nitrite Ql (U) Negative Negative [place] No Panel InformationOrdered By: Mark Avila on 05-12-2022 Estimated GFR () 31 mL/Min [place] Comment on above: GFR estimated refere nce range: According to KDOQI guidelines, <60 ml/min/1.73m2 is sufficient to diagnose a patient with chronic kidney disease. Pharmacy Creatinine Clearance (Chem N/A [place] Total Complement (CH50) >60 U/mL >41 [facility] Comment on above: Age Male Female [...] determine out of range values. Performed at: [facility] [address] [id number] [employer] Spr[employer]: Stone Tucker PhD, Phone: [phone] Platelet mean volume Auto (B ld) [Entitic vol]Ordered By: Mark Avila on 05-12-2022 Platelet mean volume (Bld) [Entitic vol] 7.4 fL 6.3-10.7 [place] Platelets Auto (Bld) [#/Vol] Ordered By: Mark Avila on 05-12-2022 Platelets (Bld) [#/Vol] 656 10*3/uL 150-450 [place] Protein Auto test strip (U) [Mass/Vol]Ordered By: Mark Avila on 05-12-2022 Protein (U) [Mass/Vol] Trace mg/dL Negative [facility] Protein [Mass/volume] in Ser um or PlasmaOrdered By: Mark Avila on 05-12-2022 Protein [Mass/Vol] 6.7 g/dL 6.1-7.9 [facility] RBC Auto (Bld) [#/Vol]Ordere d By: Mark Avila on 05-12-2022 RBC (Bld) [#/Vol] 3.78 10*6/uL 3.60-5.00 [facility] Serum DNA double strand anti body assay (units/volume)Ordered By: Mark Avila on 05-12-2022 DNA double strand Ab Qn (S) [IU]/mL 0-9 [place] Comment on above: Negative <5 Equivocal 5 - 9 Positive >9 Performed at: [facility] [address] [id number] [employer]: Stone Tucker PhD, Phone: [phone] Serum Sjogrens syndrome-A ex tractable nuclear antibody assay (units/volume)Ordered By: Mark Avila on 05-12-2022 Sjogrens syndrome-A extractable nuclear Ab Qn (S) <0.2 AI 0.0-0.9 [place] Serum or plasma alanine rajan otransferase measurement without P-5'-P (enzymatic activiOrdered By: Mark Avila on 05-12-2022 ALT No additional P-5'-P [Catalytic activity/Vol] 16 U/L 10-60 [place] Serum or plasma albumin/glob ulin mass ratioOrdered By: Mark Avila on 05-12-2022 Albumin/Globulin [Mass ratio] 0.7 {ratio} [place] Serum or plasma alkaline kim sphatase measurement (enzymatic activity/volume)Ordered By: Mark Avila on 05-12-2022 ALP [Catalytic activity/Vol] 117 U/L 32-92 [place] Serum or plasma anion gap de terminationOrdered By: Mark Avila on 05-12-2022 Anion gap [Moles/Vol] 16.1 mmol/L 6.0-15.0 [facility] Serum or plasma aspartate am inotransferase measurement (enzymatic activity/volume)Ordered By: Mark Avila on 05-12-2022 AST [Catalytic activity/Vol] 18 U/L 10-42 [place] Serum or plasma calcium ervin urement (mass/volume)Ordered By: Mark Avila on 05-12-2022 Calcium [Mass/Vol] 9.1 mg/dL 8.2-10.2 [facility] Serum or plasma chloride zhou surement (moles/volume)Ordered By: Mark Avila on 05-12-2022 Chloride [Moles/Vol] 94 mmol/L 95-114 [facility] Serum or plasma complement C 3 measurement (mass/volume)Ordered By: Mark Avila on 05-12-2022 Complement C3 [Mass/Vol] 135 mg/dL 82-167 [place] Comment on above: Performed at: [address] [id number] [employer] Sprayer: Stone Tucker PhD, Phone: [phone] Serum or plasma complement C 4 measurement (mass/volume)Ordered By: Mark Avila on 05-12-2022 Complement C4 [Mass/Vol] 28 mg/dL [place] Serum or plasma glucose ervin urement (mass/volume)Ordered By: Mark Avila on 05-12-2022 Glucose [Mass/Vol] 85 mg/dL 70-100 [facility] Comment on above: ADA recommended refe rence range Random Glucose Reference Range is dependent on time and content of last meal. Glucose of more than 200 mg/dL in a nonstressed, ambulatory subject supports the diagnosis of Diabetes Mellitus. Serum or plasma intact parat hyroid hormone measurement (mass/volume)Ordered By: Mark Avila on 05-12-2022 Parathyrin.intact [Mass/Vol] 30.3 pg/mL [place] Serum or plasma potassium me asurement (moles/volume)Ordered By: Mark Avila on 05-12-2022 Potassium [Moles/Vol] 5.4 mmol/L 3.5-5.1 [facility] Serum or plasma sodium measu rement (moles/volume)Ordered By: Mark Avila on 05-12-2022 Sodium [Moles/Vol] 126 mmol/L 136-146 [facility] Serum or plasma total biliru bin measurement (mass/volume)Ordered By: Mark Avila on 05-12-2022 Bilirubin [Mass/Vol] 0.4 mg/dL 0.3-1.2 [facility] Serum or plasma total carbon dioxide measurement (moles/volume)Ordered By: Mark Avila on 05-12-2022 CO2 [Moles/Vol] 21.3 mmol/L 22.0-30.0 [facility] Serum or plasma urea nitroge n measurement (mass/volume)Ordered By: Mark Avila on 05-12-2022 Urea nitrogen [Mass/Vol] 26 mg/dL 06-04 [place] Serum or plasma uric acid me asurement (mass/volume)Ordered By: Mark Avila on 05-12-2022 Urate [Mass/Vol] 6.1 mg/dL 2.6-7.2 [facility] Specific gravity Auto test s trip (U) [Rel density]Ordered By: Mark Avila on 05-12-2022 Specific gravity (U) [Rel density] 1.016 1.001-1.030 [place] Squamous epithelial cells de tection in urine sediment by light microscopyOrdered By: Mark Avila on 05-12-2022 Epithelial cells.squamous LM Ql (Urine sed) 3-4 [HPF] 0-2 [place] TSH DL <= 0.005 mIU/L QnOrde red By: Mark Avila on 05-12-2022 TSH Qn 2.66 m[IU]/L 0.45-5.33 [place] Urine bacteria detection by automated methodOrdered By: Mark Avila on 05-12-2022 Bacteria Auto Ql (U) None seen None Seen [facility] Urine clarity by refractomet ry automatedOrdered By: Mark Avila on 05-12-2022 Clarity Refractometry automated (U) Clear Clear [place] Urine glucose measurement by automated test strip (mass/volume)Ordered By: Mark Avila on 05-12-2022 Glucose Auto test strip (U) [Mass/Vol] Normal mg/dL Normal [place] Urine hemoglobin detection b y automated test stripOrdered By: Mark Avila on 05-12-2022 Hemoglobin Auto test strip Ql (U) Negative Negative [place] Urine leukocyte esterase det ection by automated test stripOrdered By: Mark Avila on 05-12-2022 Leukocyte esterase Auto test strip Ql (U) 1+ Negative [place] Urobilinogen Auto test strip (U) [Mass/Vol]Ordered By: Mark Avila on 05-12-2022 Urobilinogen (U) [Mass/Vol] Normal mg/dL Normal [place] pH Auto test strip (U)Ordere d By: Mark Avila on 05-12-2022 pH (U) 5.5 [pH] 5.0-9.0 [place] Urine culture routineOrdered By: Parvin Batres on 04-19-2022 Bacteria identified Cx Nom (U) Escherichia coli [place] Basophils Auto (Bld) [#/Vol] Ordered By: Josué Alvarez on 04-18-2022 Basophils (Bld) [#/Vol] 0.1 10*3/uL 0.0-0.2 [place] Basophils/100 WBC Auto (Bld) Ordered By: Josué Alvarez on 04-18-2022 Basophils/100 WBC (Bld) 1.0 % . [facility] Blood hemoglobin measurement (mass/volume)Ordered By: Josué Alvarez on 04-18-2022 Hemoglobin (Bld) [Mass/Vol] 9.2 g/dL 11.8-15.4 [place] Blood leukocytes automated c ount (number/volume)Ordered By: Josué Alvarez on 04-18-2022 WBC (Bld) [#/Vol] 8.1 10*3/uL 4.5-11.0 [facility] Creatinine and Glomerular fi ltration rate.predicted panel (S/P/Bld)Ordered By: Josué Alvarez on 04-18-2022 Creatinine [Mass/Vol] 0.82 mg/dL 0.44-1.03 [facility] Eosinophils Auto (Bld) [#/Vo l]Ordered By: Josué Alvarez on 04-18-2022 Eosinophils (Bld) [#/Vol] 0.3 10*3/uL 0.0-0.45 [place] Eosinophils/100 WBC Auto (Bl d)Ordered By: Josué Alvarez on 04-18-2022 Eosinophils/100 WBC (Bld) 3.3 % . [place] Erythrocyte distribution wid th Auto (RBC) [Ratio]Ordered By: Josué Alvarez on 04-18-2022 Erythrocyte distribution width (RBC) [Ratio] 16.4 % 11.9-15.3 [place] Estimated glomerular filtrat ion rate (GFR) non- AmericanOrdered By: Josué Alvarez on 04-18-2022 GFR/1.73 sq M.predicted among non-blacks MDRD (S/P/Bld) [Vol rate/Area] > 60 mL/Min [place] Hematocrit Auto (Bld) [Volum e fraction]Ordered By: Josué Alvarez on 04-18-2022 Hematocrit (Bld) [Volume fraction] 27.5 % 34.0-46.4 [place] Laboratory - Chemistry and C hemistry - challengeOrdered By: Josué Alvarez on 04-18-2022 Magnesium [Mass/Vol] 1.9 mg/dL 1.6-2.6 [facility] Laboratory - Hematology and Cell countsOrdered By: Josué Alvarez on 04-18-2022 Nucleated RBC/100 WBC (Bld) [Ratio] 0.1 % 0-0.5 [place] Lymphocytes Auto (Bld) [#/Vo l]Ordered By: Josué Alvarez on 04-18-2022 Lymphocytes (Bld) [#/Vol] 1.8 10*3/uL 1.00-4.8 [place] Lymphocytes/100 WBC Auto (Bl d)Ordered By: Josué Alvarez on 04-18-2022 Lymphocytes/100 WBC (Bld) 22.3 % . [place] MCH Auto (RBC) [Entitic mass ]Ordered By: Josué Alvarez on 04-18-2022 MCH (RBC) [Entitic mass] 25.4 pg 24.7-34.3 [place] MCHC Auto (RBC) [Mass/Vol]Or dered By: Josué Alvarez on 04-18-2022 MCHC (RBC) [Mass/Vol] 33.5 g/dL 32.0-35.0 [facility] MCV Auto (RBC) [Entitic vol] Ordered By: Josué Alvarez on 04-18-2022 MCV (RBC) [Entitic vol] 75.8 fL 80-100 [facility] Monocytes Auto (Bld) [#/Vol] Ordered By: Josué Alvarez on 04-18-2022 Monocytes (Bld) [#/Vol] 0.7 10*3/uL 0.0-0.8 [place] Monocytes/100 WBC Auto (Bld) Ordered By: Josué Alvarez on 04-18-2022 Monocytes/100 WBC (Bld) 8.3 % . [facility] Neutrophils Auto (Bld) [#/Vo l]Ordered By: Josué Alvarez on 04-18-2022 Neutrophils (Bld) [#/Vol] 5.3 10*3/uL 1.8-7.7 [place] Neutrophils/100 WBC Auto (Bl d)Ordered By: Josué Alvarez on 04-18-2022 Neutrophils/100 WBC (Bld) 65.1 % . [place] No Panel InformationOrdered By: Josué Alvarez on 04-18-2022 Estimated GFR () > 60 mL/Min [place] Comment on above: GFR estimated refere nce range: According to KDOQI guidelines, <60 ml/min/1.73m2 is sufficient to diagnose a patient with chronic kidney disease. Pharmacy Creatinine Clearance (Chem 46.00 [place] Platelet mean volume Auto (B ld) [Entitic vol]Ordered By: Josué Alvarez on 04-18-2022 Platelet mean volume (Bld) [Entitic vol] 6.9 fL 6.3-10.7 [place] Platelets Auto (Bld) [#/Vol] Ordered By: Josué Alvarez on 04-18-2022 Platelets (Bld) [#/Vol] 714 10*3/uL 150-450 [place] RBC Auto (Bld) [#/Vol]Ordere d By: Josué Alvarez on 04-18-2022 RBC (Bld) [#/Vol] 3.63 10*6/uL 3.60-5.00 [facility] Serum or plasma calcium ervin urement (mass/volume)Ordered By: Josué Alvarez on 04-18-2022 Calcium [Mass/Vol] 9.3 mg/dL 8.2-10.2 [facility] Serum or plasma chloride zhou surement (moles/volume)Ordered By: Josué Alvarez on 04-18-2022 Chloride [Moles/Vol] 92 mmol/L 95-114 [facility] Serum or plasma glucose ervin urement (mass/volume)Ordered By: Josué Alvarez on 04-18-2022 Glucose [Mass/Vol] 92 mg/dL 70-100 [facility] Comment on above: ADA recommended refe rence range Random Glucose Reference Range is dependent on time and content of last meal. Glucose of more than 200 mg/dL in a nonstressed, ambulatory subject supports the diagnosis of Diabetes Mellitus. Serum or plasma potassium me asurement (moles/volume)Ordered By: Josué Alvarez on 04-18-2022 Potassium [Moles/Vol] 4.2 mmol/L 3.5-5.1 [facility] Serum or plasma sodium measu rement (moles/volume)Ordered By: Josué Alvarez on 04-18-2022 Sodium [Moles/Vol] 129 mmol/L 136-146 [facility] Serum or plasma total carbon dioxide measurement (moles/volume)Ordered By: Josué Alvarez on 04-18-2022 CO2 [Moles/Vol] 25.8 mmol/L 22.0-30.0 [facility] Serum or plasma urea nitroge n measurement (mass/volume)Ordered By: Josué Alvarez on 04-18-2022 Urea nitrogen [Mass/Vol] 15 mg/dL 9-23 [place] Automated epithelial cells c ount in urine sediment (number/area)Ordered By: Parvin Batres on 04-17-2022 Epithelial cells Auto (Urine sed) [#/Area] 10-19 [HPF] 0-2 [place] Automated erythrocytes count in urine sediment (number/area)Ordered By: Parvin Batres on 04-17-2022 RBC Auto (Urine sed) [#/Area] 5-9 [HPF] 0-4 [place] Automated leukocytes count i n urine sediment (number/area)Ordered By: Parvin Batres on 04-17-2022 WBC Auto (Urine sed) [#/Area] Innumerable [HPF] 0-4 [place] Bilirubin Test strip Ql (U)O rdered By: Parvin Batres on 04-17-2022 Bilirubin Ql (U) Negative Negative [facility] Cholesterol [Mass/volume] in Serum or PlasmaOrdered By: Parvin Batres on 04-17-2022 Cholesterol [Mass/Vol] 134 mg/dL 140-200 [facility] Comment on above: Chol less than 200 m g/dl low risk Chol 201-239 mg/dl borderline risk Chol 240 mg/dl and greater high risk Cholesterol in LDL Calc [Mas s/Vol]Ordered By: Parvin Batres on 04-17-2022 Cholesterol in LDL [Mass/Vol] 76 mg/dL 0-100 [place] Comment on above: LDL ATP III CLASSIFI CATION LDL less than 100 mg/dL Optimal LDL 100-129 mg/dL Near or above optimal LDL 130-159 mg/dL Borderline high LDL 160-189 mg/dL High LDL greater than 189 mg/dL Very high Cholesterol in VLDL Calc [Ma ss/Vol]Ordered By: Parvin Batres on 04-17-2022 Cholesterol in VLDL [Mass/Vol] 13 mg/dL [place] Color Auto (U)Ordered By: King Batres on 04-17-2022 Color (U) Yellow Yellow [place] Glucose mean value [Mass/vol ume] in Blood Estimated from glycated hemoglobinOrdered By: Josué Alvarez on 04-17-2022 Average glucose Estimated from glycated hemoglobin (Bld) [Mass/Vol] 131 mg/dL [place] Hemoglobin A1c percentageOrd ered By: Josué Alvarez on 04-17-2022 HbA1c (Bld) [Mass fraction] 6.2 % 4.3-5.6 [place] Comment on above: Increased risk for d iabetes: 5.7 - 6.4 diabetes: >6.4 glycemic control for adults with diabetes: <7.0 [place] Auto test strip (U) [Mass/Vol]Ordered By: Parvin Batres on 04-17-2022 Ketones (U) [Mass/Vol] Negative Negative [facility] Nitrite Test strip Ql (U)Ord ered By: Parvin Batres on 04-17-2022 Nitrite Ql (U) Negative Negative [place] Protein Auto test strip (U) [Mass/Vol]Ordered By: Parvin Batres on 04-17-2022 Protein (U) [Mass/Vol] Negative Negative [facility] Serum or plasma high density lipoprotein (HDL) cholesterol measurementOrdered By: Parvin Batres on 04-17-2022 Cholesterol in HDL [Mass/Vol] 44 mg/dL 35-85 [place] Comment on above: HDL CHOL ATP-III CLA SSIFICATION Cardiovascular Risk HDL > or equal to 60 mg/dL LOW HDL < 40 mg/dL HIGH Serum or plasma total choles terol/high density lipoprotein (HDL) cholesterol mass ratOrdered By: Parvin Batres on 04-17-2022 Cholesterol.total/Lisa sterol in HDL [Mass ratio] 3.0 {ratio} <5.0 [place] Specific gravity Auto test s trip (U) [Rel density]Ordered By: Parvin Batres on 04-17-2022 Specific gravity (U) [Rel density] 1.013 1.001-1.030 [place] Triglyceride [Mass/volume] i n Serum or PlasmaOrdered By: Parvin Batres on 04-17-2022 Triglyceride [Mass/Vol] 68 mg/dL 35-149 [facility] Comment on above: TRIG ATP III [...] High sensitivity method [Mass/Vol] 435 pg/mL 0-15 [place] Comment on above: Results called at 0847 on 04/17/22 Urine bacteria detection by automated methodOrdered By: Parvin Batres on 04-17-2022 Bacteria Auto Ql (U) 3+ None Seen [facility] Urine clarity by refractomet ry automatedOrdered By: Parvin aBtres on 04-17-2022 Clarity Refractometry automated (U) Cloudy Clear [place] Urine glucose measurement by automated test strip (mass/volume)Ordered By: Parvin Batres on 04-17-2022 Glucose Auto test strip (U) [Mass/Vol] Normal mg/dL Normal [place] Urine hemoglobin detection b y automated test stripOrdered By: Parvin Batres on 04-17-2022 Hemoglobin Auto test strip Ql (U) Trace Negative [place] Urine leukocyte esterase det ection by automated test stripOrdered By: Parvin Batres on 04-17-2022 Leukocyte esterase Auto test strip Ql (U) 4+ Negative [place] Urobilinogen Auto test strip (U) [Mass/Vol]Ordered By: Parvin Batres on 04-17-2022 Urobilinogen (U) [Mass/Vol] Normal mg/dL Normal [place] pH Auto test strip (U)Ordere d By: Parvin Batres on 04-17-2022 pH (U) 7.0 [pH] 5.0-9.0 [place] Activated partial thrombopla stin time (aPTT) in platelet poor plasma by coagulation aOrdered By: Layo Sheridan on 04-16-2022 aPTT Coag (PPP) [Time] 30.5 s 25.1-36.5 Fi [facility] Albumin [Mass/volume] in Ser um or PlasmaOrdered By: Layo Sheridan on 04-16-2022 Albumin [Mass/Vol] 2.6 g/dL 3.2-5.5 [facility] COVID CepheidOrdered By: Ana Ramirez on 04-16-2022 SARS-CoV-2 (COVID-19) Ab IA Ql Negative Negative [place] Comment on above: This is a duplicate [employer] Xpert Xpress CoV-2/Flu/RSV Plus RNA by RT-PCR result to be used for statistical tracking purpose only. SARS-CoV-2 (COVID-19) RNA KIARRA+probe Ql (Unsp spec) [place] Direct bilirubin measurement Ordered By: Layo Sheridan on 04-16-2022 Bilirubin.direct [Mass/Vol] mg/dL 0.0-0.4 [place] Globulin Calc (S) [Mass/Vol] Ordered By: Layo Sheridan on 04-16-2022 Globulin (S) [Mass/Vol] 3.9 g/dL [facility] Laboratory - Chemistry and C hemistry - challengeOrdered By: Layo Sheridan on 04-16-2022 Natriuretic peptide B (Bld) [Mass/Vol] 118.0 pg/mL 5-100 [place] Laboratory - CoagulationOrde red By: Layo Sheridan on 04-16-2022 PT Coag (PPP) [Time] 14.0 s 9.0-12.9 [facility] Platelet poor plasma interna tional normalized ratio (INR) by coagulation assay (relatOrdered By: Layo Sheridan on 04-16-2022 INR Coag (PPP) [Relative time] 1.2 {INR} [place] Comment on above: INR Therapeutic Rang e [...] on 04-16-2022 Protein [Mass/Vol] 6.5 g/dL 6.1-7.9 [facility] Serum or plasma alanine rajan otransferase measurement without P-5'-P (enzymatic activiOrdered By: Layo Sheridan on 04-16-2022 ALT No additional P-5'-P [Catalytic activity/Vol] 17 U/L 10-60 [place] Serum or plasma albumin/glob ulin mass ratioOrdered By: Layo Sheridan on 04-16-2022 Albumin/Globulin [Mass ratio] 0.7 {ratio} [place] Serum or plasma alkaline kim sphatase measurement (enzymatic activity/volume)Ordered By: Layo Sheridan on 04-16-2022 ALP [Catalytic activity/Vol] 85 U/L 32-92 [place] Serum or plasma aspartate am inotransferase measurement (enzymatic activity/volume)Ordered By: Layo Sheridan on 04-16-2022 AST [Catalytic activity/Vol] 17 U/L 10-42 [place] Serum or plasma non-glucuron idated bilirubin measurement (mass/volume)Ordered By: Layo Sheridan on 04-16-2022 Bilirubin.indirect [Mass/Vol] TNP [place] Comment on above: Test not performed Serum or plasma total biliru bin measurement (mass/volume)Ordered By: Layo Sheridan on 04-16-2022 Bilirubin [Mass/Vol] 0.4 mg/dL 0.3-1.2 [facility] XR knee LT 4V*on 01-29-2022 XR knee LT 4V* [facility] [employer] Other XR knee LT 4V* [facility] [employer] Other XR knee LT 4V* [address] [place] [address] [employer] Other XR knee LT 4V* [place] [id number] No rt [employer] Other XR knee LT 4V* XRay Report [employer] Other XR knee LT 4V* Signed [employer] Other XR knee LT 4V* Patient: Corie Courtney MR#: [id number] De Pey[employer] Other XR knee LT 4V* [id number] [employer] Other XR knee LT 4V* : 1950 Acct:[id number] [employer] Other XR knee LT 4V* Age/Sex: 71 / F ADM Date: 01/29/22 [employer] Other XR knee LT 4V* Loc: XDUCLY Room: Type: [facility] [employer] Other XR knee LT 4V* Attending Dr: Estelita ACEVEDO [employer] Other XR knee LT 4V* Ordering Provider: CURTIS Bhardwaj [employer] Other XR knee LT 4V* Date of Service: 01/29/22 [employer] Other XR knee LT 4V* XR/XR knee LT 4V*: LEFT KNEE PAIN [employer] Other XR knee LT 4V* Copies to: CURTIS Bhardwaj [employer] Other XR knee LT 4V* LEFT KNEE - 4 views N [facility] [employer] Other XR knee LT 4V* CLINICAL HISTORY: Left knee pain and swelling for 2 months. No known trauma. [employer] Other XR knee LT 4V* COMPARISON: None Nort [employer] Other XR knee LT 4V* FINDINGS: [employer] Other XR knee LT 4V* Large knee joint effusion with likely Ness's cyst. Vascular calcifications. Bones are grossly [employer] Other XR knee LT 4V* demineralized. No acute bony process. Minimal degenerative change. No significant joint space [employer] Other XR knee LT 4V* narrowing. [employer] Other XR knee LT 4V* XR/XR knee LT 4V* [employer] Other XR knee LT 4V* IMPRESSION: [employer] Other XR knee LT 4V* LARGE KNEE JOINT EFFUSION WITH PRESUMED NESS'S CYST NOTED. MINIMAL DEGENERATIVE CHANGE. NO ACUTE [employer] Other XR knee LT 4V* BONY PROCESS. [facility] [employer] Other XR knee LT 4V* Impression dictated by: Obie Chaidez Jr., D.ODominique01/29/2022 5:02 PM [employer] Other XR knee LT 4V* Dictation Location: [facility]-- [employer] Other XR knee LT 4V* Transcribed By: SEBAS 01/29/22 [facility] [employer] Other XR knee LT 4V* Dictated By: Obie Chaidez Jr, DO 01/29/22 [facility] [employer] Other XR knee LT 4V* Signed By: Moshe [employer] Other XR knee LT 4V* 01/29/22 1702 [employer] Other XR WRIST LT MIN 3 Von 2018 XR WRIST LT MIN 3 V Patient: CORIE COURTNEY Exam Date: 01/15/2019 : 1950 Gender:F Ordering : DR. GUME RODRIGUEZ M.D. Admission #: [id number] Family : Order #: [id number] CLICK HERE TO VIEW EXAM RADIOLOGY REPORT [...] Sheehan M.D. on 01/15/2019 at 08:27 Normal [facility] Vital Signs Date Time Vital Sign Value Performing Clinician Facility 11-06-2023 18:21-0500 Diastolic blood pressure 83 mm[Hg] Services [facility] Work Phone: [place] 11-06-2023 18:21-0500 Heart rate 87 /min Services [facility] Work Phone: [place] 11-06-2023 18:21-0500 Respiratory rate 18 /min Services [facility] Work Phone: [place] 11-06-2023 18:21-0500 SaO2% (BldA) [Mass fraction] 99 % Services [facility] Work Phone: [place] 11-06-2023 18:21-0500 Systolic blood pressure 141 mm[Hg] Services [facility] [employer] Work Phone: [place] 11-06-2023 18:07-0500 Body height 149.86 cm Services [facility] Work Phone: [place] 11-06-2023 18:07-0500 Body weight 45.4 kg Services [facility] Work Phone: [place] 11-06-2023 16:44-0500 Body temperature 97.9 [degF] Services [facility] [employer] Work Phone: [place] 03-22-2023 09:00-0400 Body height 149.86 cm Joy Kaiser Other [facility] [employer] Other 03-22-2023 09:00-0400 Body mass index (BMI) [Ratio] 19.59 kg/m2 Joy Kaiser Other [employer] Other 03-22-2023 09:00-0400 Body temperature 96.4 [degF] Joy Kaiser Other [employer] Other 03-22-2023 09:00-0400 Body weight 44 kg Joy Kaiser Other [employer] Other 03-22-2023 09:00-0400 Diastolic blood pressure 84 mm[Hg] Joy Kaiser Other [employer] Other 03-22-2023 09:00-0400 Respiratory rate 20 /min Joy Kaiser Other [employer] Other 03-22-2023 09:00-0400 SaO2% (BldA) [Mass fraction] 97 % Joy Kaiser Other [employer] Other 03-22-2023 09:00-0400 Systolic blood pressure 158 mm[Hg] Joy Kaiser Other [employer] Other 03-04-2023 08:13-0400 Body height 152.4 cm Delfina Carmelita Myerholpenny Work Phone: ZS-Evyemztssf-Dhkeyw ky 250 DO Work Phone: 03-04-2023 08:13-0400 Body mass index (BMI) [Ratio] 18.75 kg/m2 Delfina Carmelita Myerholtz Work Phone: UM-Hlqwqhjgdy-Sihehk ky 250 DO Work Phone: 03-04-2023 08:13-0400 Body surface area Derived from formula 1.37 m2 Delfina Carmelita Myerholtz Work Phone: OB-Gtudohjzox-Gdzpfv ky 250 DO Work Phone: 03-04-2023 08:13-0400 Body weight 43.55 kg Delfina Mae Myerholpenny Work Phone: UI-Mcgnsaqfvb-Emyktd ky 250 DO Work Phone: 03-04-2023 08:13-0400 Diastolic blood pressure 68 mm[Hg] Delfina Carmelita Myerholtz Work Phone: BQ-Mzquuuhoub-Tshinn ky 250 DO Work Phone: 03-04-2023 08:13-0400 Heart rate 83 /min Delfina Carmelita Myerholtz Work Phone: YM-Odoetfuffz-Zstcuv ky 250 DO Work Phone: 03-04-2023 08:13-0400 Systolic blood pressure 122 mm[Hg] Delfina Carmelita Myerholtz Work Phone: YK-Nisyfdimrx-Yxjpoi ky 250 DO Work Phone: 02-28-2023 09:46-0400 Diastolic blood pressure 77 mm[Hg] MOLD FILLING OPERATOR Delfina Myerholtz Work Phone: [place] 02-28-2023 09:46-0400 Heart rate 90 /min MOLD FILLING OPERATOR Delfina Myerholtz Work Phone: [place] 02-28-2023 09:46-0400 Systolic blood pressure 133 mm[Hg] MOLD FILLING OPERATOR Delfina Myerholtz Work Phone: [place] 02-28-2023 09:44-0400 Body height 152.4 cm MOLD FILLING OPERATOR Delfina Myerholtz Work Phone: [place] 02-28-2023 09:44-0400 Body weight 45.35 kg MOLD FILLING OPERATOR Delfina Myerholtz Work Phone: [place] 02-28-2023 00:00-0400 93 1 Jaquelin Connell MD Work Phone: [facility] 600 DO Work Phone: Comment on above: [id number] 12-16-2022 16:50-0400 Body temperature 98.3 [degF] MOLD FILLING OPERATOR Delfina Myerholtz Work Phone: [place] 12-16-2022 16:50-0400 Diastolic blood pressure 90 mm[Hg] MOLD FILLING OPERATOR Delfina Myerholtz Work Phone: [place] 12-16-2022 16:50-0400 Heart rate 91 /min MOLD FILLING OPERATOR Delfina Myerholtz Work Phone: [place] 12-16-2022 16:50-0400 Respiratory rate 20 /min MOLD FILLING OPERATOR Delfina Myerholtz Work Phone: [place] 12-16-2022 16:50-0400 SaO2% (BldA) [Mass fraction] 100 % MOLD FILLING OPERATOR Delfina Myerholtz Work Phone: [place] 12-16-2022 16:50-0400 Systolic blood pressure 180 mm[Hg] MOLD FILLING OPERATOR Delfina Myerholtz Work Phone: [place] 12-16-2022 16:49-0400 Body height 152.4 cm MOLD FILLING OPERATOR Delfina Myerholtz Work Phone: [place] 12-16-2022 16:49-0400 Body weight 48.98 kg IFTIKHAR Trevino Work Phone: [place] 09-22-2022 16:20-0500 Body height 152.4 cm Aznayeli Mccarthys Other [employer] Other 09-22-2022 16:20-0500 Body mass index (BMI) [Ratio] 19.76 kg/m2 Aziz BakInfermedicas Other [employer] Other 09-22-2022 16:20-0500 Body temperature 97.4 [degF] Aziz BakInfermedicas Other [employer] Other 09-22-2022 16:20-0500 Body weight 45.9 kg Aziz Kaboozas Other [employer] Other 09-22-2022 16:20-0500 Diastolic blood pressure 82 mm[Hg] Aziz Bakhous Other [employer] Other 09-22-2022 16:20-0500 Respiratory rate 18 /min Aznayeli Kaboozas Other [employer] Other 09-22-2022 16:20-0500 SaO2% (BldA) [Mass fraction] 96 % Aziz Bakhous Other [employer] Other 09-22-2022 16:20-0500 Systolic blood pressure 130 mm[Hg] Aziz Bakhous Other [employer] Other 04-18-2022 11:34-0400 Heart rate 71 /min IFTIKHAR Trevino Work Phone: [place] 04-18-2022 11:34-0400 Respiratory rate 20 /min IFTIKHAR Gloverholtz Work Phone: [place] 04-18-2022 11:11-0400 Body temperature 97.2 [degF] IFTIKHAR Mathis Myroiholtz Work Phone: [place] 04-18-2022 11:11-0400 Diastolic blood pressure 68 mm[Hg] MOLD FILLING OPERATOR Delfina Gloverholpenny Work Phone: [place] 04-18-2022 11:11-0400 SaO2% (BldA) [Mass fraction] 98 % IFTIKHAR Gloverholpenny Work Phone: [place] 04-18-2022 11:11-0400 Systolic blood pressure 100 mm[Hg] MOLD FILLING OPERATORHuang Gloverholpenny Work Phone: [place] 04-18-2022 04:48-0400 Body weight 45 kg MOLD FILLING OPERATORHuang Gloverholpenny Work Phone: [place] 04-17-2022 00:00-0400 70 1 Jaquelin Connell MD Work Phone: [facility] 250 DO Work Phone: Comment on above: [id number] 04-16-2022 23:00-0400 Body height 152.4 cm MOLD FILLING OPERATOR Delfina Gloverholpenny Work Phone: [place] 01-29-2022 17:20-0400 Body height 152.4 cm Estelita Sheridan Other [facility] [employer] Other 01-29-2022 17:20-0400 Body mass index (BMI) [Ratio] 19.49 kg/m2 Estelita Sheridan Other [facility] [employer] Other 01-29-2022 17:20-0400 Body temperature 98 [degF] Estelita Sheridan Other [employer] Other 01-29-2022 17:20-0400 Body weight 45.27 kg Estelita Sheridan Other [employer] Other 01-29-2022 17:20-0400 Diastolic blood pressure 77 mm[Hg] Estelita Sheridan Other [employer] Other 01-29-2022 17:20-0400 Respiratory rate 18 /min Estelita Sheridan Other [employer] Other 01-29-2022 17:20-0400 SaO2% (BldA) [Mass fraction] 97 % Estelita Sheridan Other [employer] Other 01-29-2022 17:20-0400 Systolic blood pressure 131 mm[Hg] Estelita Sheridan Other [employer] Other Encounters Encounter Date Encounter Type Care Provider Facility Start: 02-18-2025 End: 02-18-2025 ambulatory Serge Rodriguez MD Facility: [facility] Start: 05-07-2024 End: 05-07-2024 ambulatory Serge Rodriguez MD Facility: [facility] Start: 02-01-2024 End: 02-01-2024 ambulatory Services [facility] Work Phone: [facility] Work Phone: Start: 02-01-2024 End: 02-01-2024 Departed Referred Services [facility] Work Phone: [facility] Start: 11-06-2023 End: 11-06-2023 Emergency department patient visit Services [facility] Work Phone: [facility] Work Phone: Start: 11-02-2023 End: 11-02-2023 ambulatory Delfina Trevino [facility] Work Phone: Start: 11-02-2023 End: 11-02-2023 Departed Referred MOLD FILLING OPERATOR Delfina Trevino Work Phone: [facility] Start: 03-22-2023 End: 03-22-2023 ambulatory Joy Kaiser Other [facility] [employer] Other Start: 03-22-2023 Office outpatient ne w 45 minutes Joy Kaiser [facility] Start: 03-07-2023 End: 03-07-2023 Patient encounter procedure IFTIKHAR Trevino Work Phone: [facility]-Res[facility] Therapy Work Phone: Start: 03-07-2023 End: 03-07-2023 ambulatory Delfina Trevino Facility:[place] Start: 03-07-2023 End: 03-07-2023 Patient encounter procedure MOLD FILLING OPERATORHuang Trevino Work Phone: [facility] Work Phone: Start: 03-07-2023 End: 03-07-2023 ambulatory MOLD FILLING OPERATOR Delfina Trevino Work Phone: [facility] Work Phone: Start: 03-04-2023 NPVRFRL, Provider: Jaquelin Connell, Status: Pen, Time: 8:20 AM Jaquelin Connell MD Work Phone: -[facility] 600 DO Work Phone: Start: 03-04-2023 Office consultation new/estab patient 60 min Delfina Trevino Work Phone: KP-Blwqhzlvii-Zklfseky 250 DO Work Phone: Start: 03-04-2023 ambulatory Ms. Delfina Thomas Samanthabruce Facility: Start: 03-03-2023 AUDIT Jaquelin de jesus MD Work Phone: [facility] 600 DO Work Phone: Start: 02-28-2023 ambulatory Ms. Delfina Thomas Samanthabruce Facility:[id number] Start: 02-28-2023 End: 02-28-2023 Patient encounter procedure IFTIKHAR Mathis Belinda Work Phone: [facility] Work Phone: Start: 02-28-2023 End: 02-28-2023 ambulatory IFTIKHAR Mae Belinda Work Phone: [facility] Work Phone: Start: 12-16-2022 End: 12-16-2022 Emergency department patient visit MOLD FILLING OPERATORHuang Mathis Belinda Work Phone: [facility]Emergency [facility] Work Phone: Start: 09-22-2022 End: 09-22-2022 ambulatory Linda Fontanez Other [facility] [employer] Other Start: 09-22-2022 Office outpatient ne w 30 minutes Linda Fontanez [facility] Nephrology Start: 05-12-2022 End: 05-12-2022 Patient encounter procedure IFTIKHAR Mathis Belinda Work Phone: [facility]-[address] [address] Start: 04-19-2022 Telephone encounter Jaquelin ha MD Work Phone: [facility] 250 DO Work Phone: Start: 04-16-2022 End: 04-18-2022 Evaluation and management of inpatient MOLD FILLING OPERATOR Delfina Belinda Work Phone: [facility] [place] [facility] Start: 01-29-2022 End: 01-29-2022 ambulatory Estelita Sheridan Other [place] [employer] Other Start: 01-29-2022 Office outpatient vi sit 15 minutes Estelita Sheridan [facility] Start: 01-15-2019 End: 01-15-2019 Patient encounter procedure [facility] Facility: Patient encounter status Delfina Trevino Work Phone: RI-Ukpymdcrrg-Czdvsesk 250 DO Work Phone: Procedures Date Procedure Procedure Detail Performing Clinician Start: 03-07-2023 Dual energy X-ray absorptiometry MOLD FILLING OPERATOR Delfina Trevino Work Phone: Start: 02-28-2023 Radionuclide myocard ial perfusion stress study MOLD FILLING OPERATOR Delfina Trevino Work Phone: Start: 02-28-2023 Plain chest X-ray MOLD FILLING OPERATOR Delfina Trevino Work Phone: Start: 12-16-2022 Plain X-ray of right hip MOLD FILLING OPERATOR Delfina Trevino Work Phone: Start: 05-12-2022 X-ray of both ankles AP RN Delfina Trevino Work Phone: Start: 05-12-2022 X-ray of both feet MOLD FILLING OPERATOR Delfina Trevino Work Phone: Start: 04-16-2022 Duplex scan of lower limb veins MOLD FILLING OPERATOR Delfina Trevino Work Phone: Start: 04-16-2022 Plain chest X-ray MOLD FILLING OPERATOR Delfina Trevino Work Phone: section Delfina Trevino Work Phone: Excision of basal ce ll carcinoma Delfina Trevino Work Phone: Operative procedure on foot Delfina Trevino Work Phone: Operative procedure on wrist Delfina Mae Belinda Work Phone: SARS-CoV-2, Influenz a & RSV (PCR) MOLD FILLING OPERATOR Delfina Belinda Work Phone: Tonsillectomy Delfina patekyrie Work Phone: Urine culture MOLD FILLING OPERATORHuang Mathis Belinda Work Phone: Plan of Treatment Date Care Activity Detail Author Start: 02-28-2023 Radionuclide myocard ial perfusion stress study NM jony perf SPECT rest & str [place] Start: 05-12-2022 Hemolytic complement CH50 level [facility] Work Phone: Start: 05-12-2022 [facility] Work Phone: Start: 05-12-2022 X-ray of both ankles XR ankle BI 2V [place] Start: 05-12-2022 X-ray of both feet XR foot BI 2V [facility] Start: 05-12-2022 End: 05-12-2022 Patient encounter procedure Departed Clinical [facility] [address] Start: 04-18-2022 [facility] Work Phone: Start: 04-16-2022 Referral to Lens Grinder [facility] Work Phone: Start: 04-16-2022 Referral to outer diameter grinder tool [facility] Work Phone: Start: 04-16-2022 Hospital admission [facility] Work Phone: Alkaline phosphatase - bone isoenzyme measurement [facility] Work Phone: Alkaline phosphatase [Enzymatic activity/volume] in Serum or Plasma [facility] Work Phone: Alkaline phosphatase isoenz panel - Serum or Plasma [facility] Work Phone: Blood chemistry [facility] Work Phone: Intestinal alkaline phosphatase measurement [facility] Work Phone: Patient Education [facility] Work Phone: Patient referral [facility] Work Phone: Immunizations Immunization Date Immunization Notes Care Provider Kay cano 08-03-2021 influenza, injectabl e, quadrivalent, contains preservative Jaquelin Connell MD Work Phone: [facility] 600 DO Work Phone: 05-14-2020 influenza, injectabl e, quadrivalent, contains preservative Jaquelin Connell MD Work Phone: [facility] 600 DO Work Phone: 2019 pneumococcal polysaccharide vaccine, 23 valluke Connell MD Work Phone: [facility] 600 DO Work Phone: 08-01-2019 influenza, injectabl e, quadrivalent, contains preservative Jaquelin Connell MD Work Phone: [facility] 600 DO Work Phone: 06-06-2018 pneumococcal conjuga te vaccine, 13 valluke Connell MD Work Phone: [facility] 600 DO Work Phone: 05-29-2018 pneumococcal conjuga te vaccine, 13 valluke Connell MD Work Phone: [facility] 600 DO Work Phone: 07-23-2016 influenza, seasonal, injectable, preservative free Jaquelin Connell MD Work Phone: [facility] 600 DO Work Phone: 07-23-2016 pneumococcal polysaccharide vaccine, 23 valluke Connell MD Work Phone: [facility] 600 DO Work Phone: 05-18-2014 tetanus and diphther ia toxoids, adsorbed, preservative free, for adult use (5 Lf of tetanus toxoid and 2 Lf of diphtheria toxoid) Jaquelin Connell MD Work Phone: [facility] 600 DO Work Phone: Payers Date Payer Category Payer Self-pay [id number] 2023 Unknown [id number] 2022 Private Health Insurance [id number] 2021 Medicare [id number] 1959 Medicare [id number] 1950 Unknown [id number] 1950 Unknown [id number] 1950 Unknown [id number] 1950 Unknown [id number] 1950 Unknown [id number] [id number] Medicaid [employer] [id number] Unknown Unknown [employer] [id number] Unknown [id number] Unknown [id number] Unknown [id number] Unknown [id number] [id number] Unknown [id number] Unknown [id number] Social History Date Type Detail Facility Sex Assigned At [employer] Other Start: 04-17-2022 End: 11-06-2023 Tobacco smoking status NHIS Smoker (finding) [place] Start: 1950 Sex Assigned At Female F [facility] Occasional alcohol use Occasional alcohol use [facility]Pecobykywu-Orpzoyxg 250 DO Work Phone: Comment on above: 1 Pot of coffee amy y; 1 PPD; Goals Date Patient Goal Desired Activity /State Functional Status Date Assessment Result Facility 04-18-2022 Functional status Patient is Pro gressing Toward Baseline [facility] Work Phone: Mental Status Date Assessment Result Facility 04-18-2022 Cognitive function Cognitive Sta tus Patient at Baseline [facility] Work Phone: Clinical Notes 01-29-2022 to [...] all NSAIDs due to advanced kidney disease [employer] Other 08-07-2022 Consult note Author Jaquelin Connell [place] April 18, 2022 9:21am Note Date/Time April 17, 2022 1:2 5pm [facility] [address] [place] [address] Cardiology Consult Note Signed Patient: Corie Courtney MR#: [id number] : 1950 Acct:[id number] Age/Sex: 71 / F Adm Date: 2 Loc: Room: [address] [place] [address] Type: ADM INOo Attending Dr: Parvin Batres MD Copies to: MD Delfina Block,MOLD FILLING OPERATOR,WOOD PATTERNMAKER Jaquelin Connell MD~ Cardiology HPI History of [...] DAILY 04/16/22 [History Confirmed 04/16/22] glucosamine 750 bk-anhzhh-yzp 2-C 30 mg-D3 1,000 unit-jane 1 mg tablet (Lpbuiotrxug-Wdpzmpnydaw-HJK + vitD) 1 tab PO DAILY 04/16/22 [...] Lymph # (Auto) 2.8 1.9 (1.00-4.8) x10E3/uL [place] # (Auto) 0.8 0.6 (0.0-0.8) x10E3/uL Eos [...] 1324 Signed By: <Electronically signed by MD Jqauelin Connell> 04/18/22 0953 [facility] Work Phone: 1(699) 703-565608-07-2022 Progress note Author Parvin Batres [place] April 18, 2022 9:07am Note Date/Time April 18, 2022 9:0 2am [facility] [address] [place] [address] Hospitalist Progress Note Signed Patient: Corie Courtney MR#: [id number] : 1950 Acct:[id number] Age/Sex: 71 / F Adm Date: 2 Loc: Room: [address] [place] [address] Type: ADM INOo Attending Dr: Parvin Batres [...] DVT prophylaxis Documented By: Parvin Batres MD 04/18/22900 Signed By: <Electronically signed by Parvin Batres MD> 04/18/22 0907 [facility] Work Phone: 1(911) 462-233008-06-2022 Progress note Author Parvin Batres [place] April 17, 2022 9:03am Note Date/Time April 17, 2022 8:5 6am [facility] [address] [place] [address] Hospitalist Progress Note Signed Patient: Corie Courtney MR#: [id number] : 1950 Acct:[id number] Age/Sex: 71 / F Adm Date: 2 Loc: Room: [address] [place] [address] Type: ADM INOo Attending Dr: Parvin Batres [...] signed by Parvin Batres MD> 04/17/22 0903 [facility] Work Phone: 1(867) 448-991608-05-2022 History and physical note Author Josué Alvarez [place] April 16, 2022 9:42pm Note Date/Time April 16, 2022 9:4 0pm [facility] [address] [place] [address] Hospitalist H&P Signed Patient: Corie Courtney MR#: [id number] : 1950 Acct:[id number] Age/Sex: 71 / F Adm Date: 2 Loc: Room: [address] [place] [address] Type: ADM INOo Attending Dr: Josué Alvarez DO Copies to: Delfina Trevino APRN,WOOD PATTERNMAKER Josué Alvarez DO~ HPI DATE OF EXAMINATION: [...] % (Auto) 30.4 % (.) 04/16/22 18:10 [place] % (Auto) 8.6 % (.) 04/16/22 18:10 Eos % (Auto) 3.7 % (.) 04/16/22 18:10 Baso % (Auto) 1.4 % (.) 04/16/22 18:10 Neut # (Auto) 5.1 x10E3/uL (1.8-7.7) 04/16/22 18:10 Lymph # (Auto) 2.8 x10E3/uL (1.00-4.8) 04/16/22 18:10 [place] # (Auto) 0.8 x10E3/uL (0.0-0.8) 04/16/22 18:10 [...] <Electronically signed by Josué Alvarez DO> 04/16/222141 [facility] Work Phone: 1(355) 589-307006-23-2022 History of Present illness Narrative* The patient [...] follow-up on as-needed basis on her request FU-Mrzvnxeqrz-Zwgjzvkx 250 DO Work Phone: 1(862) 980-493305-20-2022 Evaluation note* Encounter Date Diagnosis Assessment Notes [...] January, Other Ness's cyst material was printed [employer] Other Chief complaint Narrative - ReportedCORIE COURTNEY is being seen for a consultation for POC.CX-Vnzqggbcli-Jrscernc [employer] DO Work Phone: Consult note Author Jaquelin Connell [place] April 18, 2022 9:21am Note Date/Time April 17, 2022 1:2 5pm [facility] [address] [place] [address] Cardiology Consult Note Signed Patient: Corie Coutrney MR#: [id number] : 1950 Acct:[id number] Age/Sex: 71 / F Adm Date: 2 Loc: Room: [address] [place] [address] Type: ADM INOo Attending Dr: Parvin Batres MD Copies to: MD Delfina Block APRN,WOOD PATTERNMAKER Jaquelin Connell MD~ Cardiology HPI History of [...] DAILY 04/16/22 [History Confirmed 04/16/22] glucosamine 750 zr-lycdeg-hzb 2-C 30 mg-D3 1,000 unit-jane 1 mg tablet (Slnsprdgkvq-Itttjacupnv-LOH + vitD) 1 tab PO DAILY 04/16/22 [...] Lymph # (Auto) 2.8 1.9 (1.00-4.8) x10E3/uL [place] # (Auto) 0.8 0.6 (0.0-0.8) x10E3/uL Eos [...] <Electronically signed by MD Jaquelin Connell> 04/18/22 0935 [facility] Work Phone: Discharge summary Author Parvin Batres [place] April 18, 2022 5:54pm Note Date/Time April 18, 2022 5:5 4pm [facility] [address] [place], [place] [address] Discharge Summary Signed Patient: Corie Courtney MR#: [id number] : 1950 Acct:[id number] Age/Sex: 71 / F Adm Date: 2 Loc: Room: [address] [place] [address]: Parvin Batres MD Copies to: MD Delfina Block,MOLD FILLING OPERATOR,WOOD PATTERNMAKER~ Providers Date of Discharge: 04/18/22 Discharging Provider: [...] % (Auto) 65.1, Lymph % (Auto) 22.3, [place] % (Auto) 8.3, Eos % (Auto) 3.3, Baso % (Auto) 1.0, Neut # (Auto) 5.3, Lymph # (Auto) 1.8, [place] # (Auto) 0.7, Eos # (Auto) 0.3, [...] BY MOUTH EVERY DAY FOR 90 DAYS Znvgpmqx-Cidwpq-XWA with vit D 750-30-1,000-1 go-aw-fuzd-mg Tablet 1 tab PO DAILY ibuprofen 200 [...] Tuesday to confirm date/time. ) Delfina Trevino APRN [employer] [Primary Care Provider] - (Call office on Tuesday to schedule follow-up with your Primary Care Provider in 3-5 days. ) Documented By: Parvin Batres MD 04/18/221752 Signed By: <Electronically signed by Parvin Batres MD> 04/18/22 0049 [facility] Work Phone: Evaluation note* Diagnosis Onset Date Resolution Status Acute diastolic heart failure acute COPD (chronic obstructive pulmonary disease) acute Edema, peripheral acute Elevated blood pressure reading acute Elevated troponin acute History of stroke acute Hyperlipidemia acute Hypertension acute Leg swelling acute Myocardial infarction type 2 acute Tobacco abuse acute [facility] Work Phone: Evaluation noteNo assessment information available [facility] Work Phone: Evaluation noteNort [employer] Other History and physical note Author Josué Alvarez [place] April 16, 2022 9:42pm Note Date/Time April 16, 2022 9:4 0pm [facility] [address] [place] [address] Hospitalist H&P Signed Patient: Corie Courtney MR#: [id number] : 1950 Acct:[id number] Age/Sex: 71 / F Adm Date: 2 Loc: Room: [address] [place] [address] Type: ADM INOo Attending Dr: Josué Alvarez DO Copies to: Delfina Trevino APRN,[employer] Josué Alvarez, ~ HPI DATE OF EXAMINATION: [...] % (Auto) 30.4 % (.) 04/16/22 18:10 [place] % (Auto) 8.6 % (.) 04/16/22 18:10 Eos % (Auto) 3.7 % (.) 04/16/22 18:10 Baso % (Auto) 1.4 % (.) 04/16/22 18:10 Neut # (Auto) 5.1 x10E3/uL (1.8-7.7) 04/16/22 18:10 Lymph # (Auto) 2.8 x10E3/uL (1.00-4.8) 04/16/22 18:10 [place] # (Auto) 0.8 x10E3/uL (0.0-0.8) 04/16/22 18:10 [...] prophylaxis ? Cardiac diet Documented By: Josué Alvarez, DO 04/16/222129 Signed By: <Electronically signed by Josué Alvarez, DO> 04/16/222141 [facility] Work Phone: History general Narrative - Reported* Type Description Date Medical History HTN Medical History hypercholesterolemia Medical History Arthritis Surgical History Left Foot Surgery Hospitalization History Stroke 2019 [facility] Other History general Narrative - Reported* Type [...] History SEE ABOVE Hospitalization History EDEMA 2021 [facility] Other History general Narrative - ReportedNort [employer] Other Hospital Discharge instructions Additional Instructions Increase salt in your diet Increased pain with vegetables Follow-up with PCP call tomorrow for appointment Please return here if you develop any dizziness, chest pain, shortness of breath or any other concerns[facility] Work Phone: Progress note Author Parvin Batres [place] April 17, 2022 9:03am Note Date/Time April 17, 2022 8:5 6am [facility] [address] [place] [address] Hospitalist Progress Note Signed Patient: Corie Courtney MR#: [id number] : 1950 Acct:[id number] Age/Sex: 71 / F Adm Date: 2 Loc: 3T Room: [address] [place] [address] Type: ADM INOo Attending Dr: Parvin Batres [...] signed by Parvin Batres MD> 04/17/22 0903 [facility] Work Phone: Progress note Author Parvin Batres [place] April 18, 2022 9:07am Note Date/Time April 18, 2022 9:0 2am [facility] [address] [place] [address] Hospitalist Progress Note Signed Patient: Corie Courtney MR#: [id number] : 1950 Acct:[id number] Age/Sex: 71 / F Adm Date: 2 Loc: Room: [address] [place] [address] Type: ADM INOo Attending Dr: Parvin Batres [...] Administration Metoprolol Tartrate 25 mg 04/17/22 21:00 08/07/22 08:41 Metoprolol Tartrate 25 Mg Tablet PO [...] signed by Parvin Batres MD> 04/18/22 0907 [facility] Work Phone: Progress note Author Jaquelin Connell [place] April 18, 2022 12:03pm Note Date/Time April 18, 2022 12: 03pm [facility] [address] [place] [address] Cardiology Progress Note Signed Patient: Corie Courtney MR#: [id number] : 1950 Acct:[id number] Age/Sex: 71 / F Adm Date: 2 Loc: Room: [address] [place] [address] Type: ADM INOo Attending Dr: Parvin Batres [...] % (Auto) 65.1 Lymph % (Auto) 22.3 [place] % (Auto) 8.3 Eos % (Auto) 3.3 Baso % (Auto) 1.0 Neut # (Auto) 5.3 Lymph # (Auto) 1.8 [place] # (Auto) 0.7 Eos # (Auto) 0.3 [...] Cloudy A Urine pH 7.0 Ur Specific Spring 1.013 Urine Protein Negative Urine Glucose (UA) [...] signed by MD Jaquelin Connell> 04/18/22 1203 [facility] Work Phone: Summary Purpose Family History [...] DATE CREATED AUTHOR AUTHOR'S ORGANIZ ATION 07/09/[address] [facility] DATE CREATED AUTHOR AUTHOR'S ORGANIZ ATION 02/16/2024 [facility] DATE CREATED AUTHOR AUTHOR'S ORGANIZ ATION 03/04/2025 [facility] REASON FOR VISIT (unrecogniz ed section and content) LEFT KNEE PAIN X2 MONTHSRENA L CHRONIC RENAL INSUFFIENCY Care Teams (unrecognized sec tion and content) Team Status: Inactive Member Role Status Dates Delfina Trevino APRN [employer] Primary Care Provide r Active Mark Avila MD Attending Provider Active Team Status: Inactive Member Role Status Dates Delfina Trevino APRN [employer] Primary Care Provide r Active Wilman Ramirez DO Emergency Provider Active Josué Alvarez DO Admit Provider Active Jennifer Ding RN Other Provider Active Jerica Carrasco DO Other Provider Active Wilbert East MD Other Provider Active Willie Milner MD Other Provider Active Jaquelin Connell MD Other Provider Active Zia Lloyd MD Other Provider Active Iwona Mayberry APRN Other Provider Active Paulina aGrsia MD Other Provider Active Payal Horta MD Other Provider Active Kale Robles MD Other Provider Active Parvin Batres MD Attending Provider Active Team Status: Active Member Role Status Dates Delfina Trevino APRN [employer] Primary Care Provide r Active Team Status: Inactive Member Role Status Dates Delfina Trevino APRN [employer] Primary Care Provide r Active Layo Sheridan APRN Emergency Provider Active Team Status: Inactive Member Role Status Dates Delfina Trevino APRN [employer] Primar y Care Provider, Attending Provider Active Jerica Carrasco DO Referring Provider Active Team Status: Inactive Member Role Status Dates Delfina Trevino APRN [employer] Primar y Care Provider, Attending Provider Active Team Status: Inactive Member Role Status Dates Delfina Trevino APRN [employer] Attending Provider Active Start: October End: November 02, 2023 Team Status: Active Member Role Status Dates Services [facility] Primary Care Provider Active Team Status: Inactive Member Role Status Dates Services [facility] Primary Care Provider Active Start: November 06, 2023 End: November 06, 2023 Enedelia Gordon APRN Emergency Provider Active Start: November 06, 2023 End: November 06, 2023 Team Status: Inactive Member Role Status Dates Delfina Trevino APRN [employer] Attending Provider A ctive Start: February 01, [...] BE BASED ON THE PRIMARY CLINICAL RECORDS. [facility] [employer] [facility]. provides no warranty or guarantee of the accuracy or completeness of information in this document.
--- NOTE | 2025-05-22 13:00 | PM.CN ---
Consult Note: HPI Data of Consult Patient: known to practice within the last 3 years Requesting Physician: Roxana Jj NP Primary Care Provider: Non-Staff Physician, Consult Narrative Reason for consult: right hip and leg pain Narrative: Corie Park a 74 year old female presents for evaluation of chronic right hip and knee pain. notes worsening right hip and leg pain since last visit, did not find any benefit to right knee injection on 02-18-25. Pt has longstanding pain secondary to OA, is interested in right hip replacement however she has severe osteoporosis requiring prolia shots which have not been completed due to changes in insurance. Patient continuing to work with her PCP to get restarted on prolia. denies fall/injury since last visit. pain today 5-6/10 increasing to 10/10 with standing, walking, activity, ADLs. ujtilizing tylenol PRN, cannot take NSAIDs due to CKD, utilizing butrans 7.5mcg/hr patch q7 days with benefit without side effects. could not tolerate higher dosing in the past. cc:: CC: Roxana Jj NP Review of Systems ROS Musculoskeletal Reports: joint pain PFSH PFSH Medical History Basal cell carcinoma ?C44.91 - Basal cell carcinoma of skin, unspecified (ICD-10) Anxiety ?F41.9 - Anxiety disorder, unspecified (ICD-10) Kidney disease ?N28.9 - Disorder of kidney and ureter, unspecified (ICD-10) Osteoarthritis ?M19.90 - Unspecified osteoarthritis, unspecified site (ICD-10) Rheumatoid arthritis ?M06.9 - Rheumatoid arthritis, unspecified (ICD-10) CHF (congestive heart failure) ?I50.9 - Heart failure, unspecified (ICD-10) High cholesterol ?E78.00 - Pure hypercholesterolemia, unspecified (ICD-10) COPD (chronic obstructive pulmonary disease) ?J44.9 - Chronic obstructive pulmonary disease, unspecified (ICD-10) Arthritis of right hip ?M16.11 - Unilateral primary osteoarthritis, right hip (ICD-10) Surgical History H/O foot surgery ?Z98.890 - Other specified postprocedural states (ICD-10) History of section, classical ?Z98.891 - History of uterine scar from previous surgery (ICD-10) Meds Home Medications and Allergies Home Medications ?Medication ?Instructions ?Recorded ?Confirmed ?Type acetaminophen 325 mg capsule 1,300 mg PO BID PRN pain 05/24/23 10/17/23 History (Tylenol) albuterol sulfate 90 mcg/actuation 1 inh inhalation Q6H 05/24/23 10/17/23 History aerosol inhaler atorvastatin 20 mg tablet 20 mg PO DAILY 05/24/23 10/17/23 History buspirone 5 mg tablet 5 mg PO BID 05/24/23 10/17/23 History cholecalciferol (vitamin D3) 25 25 mcg PO DAILY 05/24/23 10/17/23 History mcg (1,000 unit) capsule furosemide 20 mg tablet 20 mg PO BID 05/24/23 10/17/23 History lisinopril 2.5 mg tablet 2.5 mg PO DAILY 05/24/23 10/17/23 History metoprolol tartrate 25 mg tablet 25 mg PO BID 05/24/23 10/17/23 History multivitamin 1 tab PO DAILY 05/24/23 10/17/23 History buprenorphine 7.5 mcg/hour weekly 1 patch transdermal QWEEK #4 ea 10/29/24 Rx transdermal patch (Butrans) buprenorphine 7.5 mcg/hour weekly 1 patch transdermal Q7D #4 ea 12/04/24 Rx transdermal patch (Butrans) buprenorphine 7.5 mcg/hour weekly 1 patch transdermal QWEEK #4 ea 01/02/25 Rx transdermal patch (Butrans) buprenorphine 7.5 mcg/hour weekly 1 patch transdermal QWEEK #4 ea 02/07/25 Rx transdermal patch (Butrans) buprenorphine 7.5 mcg/hour weekly 1 patch transdermal Q7D #4 ea 04/11/25 Rx transdermal patch (Butrans) buprenorphine 7.5 mcg/hour weekly 1 patch transdermal Q7D #4 ea 05/09/25 Rx transdermal patch (Butrans) Allergies Allergy/AdvReac Type Severity Reaction Status Date / Time No Known Drug Allergies Allergy Verified 10/17/23 09:55 Exam Constitutional Documenting provider has reviewed patient's vital signs: yes Common normals: no apparent distress, oriented x3, healthy appearing, alert and well nourished General appearance: cooperative HENMT Common normals: normocephalic, hearing grossly normal bilaterally and moist oral mucous membranes Head and scalp: normocephalic Eye Common normals: PERRL Pupil: PERRL Neck & C-Spine Common normals: full ROM General: normal visual inspection Chest Common normals: inspection of chest normal Respiratory Common normals: normal respiratory effort, no retractions and no use of accessory muscles Back & Pelvis Lumbar spine/lower back: ROM limited and pain with ROM Extremity Right lower extremity: hip joint and knee joint Other: pain with internal/external rotation of right hip moderate edema and pain with medial/lateral stress testing of right knee, no instability noted Neuro Common normals: oriented x3 Sensorium/orientation: alert Psych Common normals: mental status grossly normal, thought process normal, cooperative, affect normal, speech normal and activity/motor behavior normal Speech: normal speech Thought process: normal thought process Results Additional Findings Additional findings: If on a controlled substance or opioids, I have checked an [place] report on this patient and there are no aberrancies noted in the prescribing history.??If on a controlled substance or opioid a drug screen was completed and reviewed within the last year, and if there has not been a drug screen completed we ordered one today to monitor higher risk, state monitored pain medication use. As part of providing excellent, safe, comprehensive care, the following was completed at our patient's visit: 1. A medication reconciliation and review to ensure accurate knowledge of current/active medications, including asking our patients to inform us about any [id number] medications or herbal remedies/nutritional supplements/alternative remedies. 2. A review to specifically ensure our patients have had annual screening for screening for depression, screening for tobacco use, and screening for unhealthy alcohol use. For concerning screenings had a discussion with the patient, provided patient education, and recommended follow-up with primary care provider when appropriate. If patient noted with a risk of falling, they received education on strength, gait, and balance training to prevent future risk of falling. Portions of this note may have been carried over from the previous visit and updated as appropriate. Please note this office utilizes paper charting in addition to the electronic medical record. A list of current medications, vitals, and PMH is available there as the clinical staff outside of myself do not have access to [facility] charting during the clinic day operations. As part of providing quality comprehensive care the current medications, vitals, and PMH were reviewed in the paper chart. Assessment and Plan Assessment and Plan (1) Osteoarthritis of right hip: Qualifiers: Osteoarthritis type: primary Qualified Code(s): M16.11 - Unilateral primary osteoarthritis, right hip (2) Osteoarthritis of right knee: Qualifiers: Osteoarthritis type: primary Qualified Code(s): M17.11 - Unilateral primary osteoarthritis, right knee (3) Chronic prescription opiate use: (4) Chronic pain syndrome: Plan continue butrans 7.5mcg/hr patch q7days update UDS for medication monitoring continue f/u with PCP as planned for prolia injections not currently following with orthopedics at this time due to osteoporosis pt not interested in additional injections, does not find beneficial f/u 3 months for medication management
== END 2025-05-22 12:33 | disposition home or self-care (01) ==
PROVIDERS: Visit Provider Nurse Practitioner
DX: M16.11 Unilateral primary osteoarthritis, right hip (principal); M17.11 Unilateral primary osteoarthritis, right knee; Z79.891 Long term (current) use of opiate analgesic; G89.4 Chronic pain syndrome
CPT/HCPCS: G0463